=== PATIENT | female | born 1935 | race Caucasian/White ===

== ENCOUNTER 2022-04-03 12:23 | Outpatient (CLI) | payer MEDICARE, SELFPAY ==
--- OUTSIDE RECORDS SUMMARY | 2022-04-03 12:30 | XMS_ITS | Encounter Summary ---
:1935 Author Organization [facility] [place] [address] Care Team Providers Name Role Phone Nereida Barnett MD Primary Care Provider [phone] Reason for Visit Reason Comments Follow-up Encounter Details Date Type Department Care Team Description 02/09/2022 Office Visit Hematology and Matias Salmeron M D [facility] DR HEMATOLOGY/[place] [address] History of ITP; [place] [facility] [place] Norma Salinas, [employer] [facility] DR HEMATOLOGY/[place] [address] Secondary polycythemia [facility] Glenn Gu MD [facility] DR HEMATOLOGY/[place] [address] [place] [address] Social History Tobacco Use Types Packs/Day Years Used Date Never Smoker Smokeless Tobacco: Never Used Alcohol Use Standard Drinks/Week Comments Yes 0 (1 standard drink = 0.6 oz pure alcoho l) occasional Alcohol Habits Answer Date Recorded How often do you have a drink containing alcohol? Not asked How many drinks containing alcohol do you have on a typical Not asked day when you are drinking? How often do you have six or more drinks on one occasion? No t asked Comment: occasional 01/05/2013 Sex Assigned at Date Recorded Female 10/29/2021 2:50 PM EDT documented as of this encounter Last Filed Vital Signs Vital Sign Reading Time Taken Comments Blood Pressure 161/61 02/09/2022 1:20 PM EDT Pulse 65 02/09/2022 1:20 PM EDT Temperature 36.4 ??C (97.5 ??F) 02/09/2022 1:20 PM EDT Respiratory Rate 18 02/09/2022 1:20 PM EDT Oxygen Saturation 98% 02/09/2022 1:20 PM EDT Inhaled Oxygen Concentration - - Weight 82.7 kg (182 lb 5.1 oz) 02/09/2022 1:20 PM EDT Height 146.7 cm (4' 9.76) 02/09/2022 1:20 PM EDT Body Mass Index 38.43 02/09/2022 1:20 PM EDT documented in this encounter Patient Instructions Patient InstructionsGautMatias salazar MD - 02/09/2022 1:15 PM EDT Recent Results (from the past 24 hour(s)) Comprehensive metabolic panel (non-fasting) Result Value Ref Range Glucose Lvl 114 65 - 199 mg/dL BUN 20 (H) 8 - 18 mg/dL Creatinine 1.04 0.70 - 1.20 mg/dL Sodium 140 135 - 145 mmol/L Potassium 3.7 3.5 - 5.0 mmol/L Chloride 103 98 - 107 mmol/L CO2 29 22 - 31 mmol/L Anion Gap 8 5 - 15 mmol/L Calcium 9.8 8.5 - 10.5 mg/dL Total Protein 6.2 6.1 - 8.0 g/dL Albumin 3.8 3.2 - 5.2 g/dL AST 25 0 - 30 unit/L ALT 17 0 - 30 unit/L Alk Phos 88 35 - 105 unit/L Total Bilirubin 1.0 0.2 - 1.3 mg/dL Estimated GFR 53 (L) >=60 mL/min/1.73 m?? Hemogram Result Value Ref Range WBC 9.2 4.0 - 9.5 x10(3)/mcL RBC 5.30 (H) 4.00 - 5.21 x10(6)/mcL Hemoglobin 15.7 (H) 11.7 - 15.5 g/dL Hematocrit 50.1 (H) 35.7 - 45.8 % MCV 94.5 (H) 82.6 - 94.4 fL MCH 29.6 27.1 - 32.0 pg MCHC 31.3 (L) 31.7 - 35.0 g/dL Platelets 135 (L) 145 - 357 x10(3)/mcL RDWSD 44.4 37.0 - 46.0 fL RDWCV 12.7 11.5 - 14.1 % MPV 11.0 7.6 - 12.9 fL nRBC % Auto 0.0 % nRBC Abs Auto 0.000 0.000 - 0.000 x10(3)/mcL Differential, Automated Result Value Ref Range Neutrophils % 72.4 % Neutr Abs (ANC) 6.63 (H) 1.70 - 6.10 x10(3)/mcL Lymphocytes % 17.4 % Lymphocytes Abs 1.6 0.9 - 3.2 x10(3)/mcL Monocytes % 7.9 % Monocyte Abs 0.7 0.3 - 0.9 x10(3)/mcL Eosinophils % 1.5 % Eosinophils Abs 0.1 0.0 - 0.4 x10(3)/mcL Basophils % 0.5 % Basophils Abs 0.0 0.0 - 0.1 x10(3)/mcL Immature Gran % 0.30 % Елена Gran Abs 0.03 0.00 - 0.04 x10(3)/mcL documented in this encounter Progress Notes Matias Salmeron MD - 02/09/2022 1:15 PM EDT Subjective: Patient ID: Barbara Casarez is a 86 y.o. female. Patient Active Problem List Diagnosis Code ??? Breast cancer C50.919 ??? 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 ST elevation (STEMI) myocardial infarction involving left anterior descending coronary artery I21.02 ??? Acute systolic congestive heart failure I50.21 ??? PAF (paroxysmal atrial fibrillation) I48.0 ??? Actinic keratosis L57.0 ??? Acquired complete AV block I44.2 HPI Patient ID: Barbara Casarez is a 84 y.o. female. Problem List: 1. Cancer of the right breast, [id number], stage IA, low grade, ER/WY positive, Her-2/veronica negative. A. Screening mammogram 11/15/12 - left breast negative. Right breast indeterminate with focal assymetry UOQ. 11/28/12 - Additional views of right breast and US -This is a (BIRADS Category 4) SUSPICIOUS Right breast for an 8mm nodular mass in the upper, outer Right breast at 1100, 6cm from the nipple. Targeted ultrasound to the upper, outer quadrant of the Right breast at 1100, 6cm from the nipple demonstrates a 6 x 5 x 6mm irregular, hypoechoic mass. No increased vascularity or shadowing is associated with this mass. No surrounding pseudocapsule is seen. This mass has an indeterminate appearance and biopsy is recommended. The remainder of the Right breast is unremarkable. ?? B. 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 C. Bilateral breast MRI 12/09/12 SUMMARY: RIGHT BREAST LESION 1: KNOWN MALIGNANCY (BIRADS Category 6). Lesion type: Mass. Size: 9 x 4 x 4mm. Location: 1100, 8.1 (4.7)cm from the nipple (radial). Distance from skin: 38mm. Mass margins: Irregular. Mass shape: Lobulated. Enhancement pattern: Homogeneous. Kinetics: Plateau/washout. Recommendation: Definitive surgery. ?? LEFT BREAST LESION 1: SUSPICIOUS (BIRADS Category 4). Lesion type: Mass. Size: 17 x 15 x 16mm. Location: Retroareolar, 0cm from the nipple. Distance from skin: 0mm. Mass margins: Irregular. Mass shape: Lobulated. Enhancement pattern: Heterogeneous. Kinetics: Washout. Recommendation: Diagnostic ultrasound. Comments: 17mm lobulated mass involving and expanding the Left nipple. Recommend follow-up ultrasound for diagnostics. It may or may not be amenable to ultrasound guided biopsy/FNA. ?? D. Staging CXR and LFTs unremarkable ?? E. 01/05/13 - Excision of left breast lesion; Right partial mastectomy and SLN bx. 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 Tumor Size: 7 mm (papilloma size) Resection Margins (RM): Margin Status: Involved(Involved,Uninvolved) Distance, nearest RM(s): At the cauterized yellow RM (A3), adjacent to skin. See Comment Specimen (s): ?? B - Right partial mastectomy C - Right axillary sentinel node Histologic Type: Invasive ductal carcinoma Tumor Grade: Low Zkslsy-Hgwia-Ijxafmgvvn Score: 5 Tubular Differentiation: 2 Mitotic Rate: 1 Nuclear Grade: 2 Tumor Size: 0.7 cm (maximum diameter) In Situ Histologic Type: Not identified (present in the core bx [id number]) Microcalcifications: Not identified Angiolymphatic Invasion: Not identified Perineural invasion: Not identified Nipple involvement: N/A Skin/Skeletal muscle invasion: N/A Other Findings: 1 - Atypical ductal hyperplasia 2 - Atypical lobular hyperplasia 3 - Healing biopsysite Resection Margins (RM): Invasive Ca: Uninvolved(involved/uninvolved) Distance from closest RM(s): < 0.1 cm to nearest yellow inked RM (B2) Axillary lymph nodes: Total no. nodes sampled: 1 No. non-sentinel nodes: 0 No. positive for carcinoma: NA No. sentinel nodes: 1 No. with metastases 0.02 cm or less (isolated tumor cells) 0 No. with metastases >0.02 cm to 0.2 cm (micrometastases) 0 No. with metastases >0.2 cm (macrometastases) 0 Total no. nodes negative for carcinoma: 1 pTNM: pT1b N0 (AJCC, 7th edition, 2010) F. Adjuvant radiation therapy completed 03/31/13. G. 04/07/13 - started femara; completed 5 years in 03/2018 H. Bilateral mammogram 11/02/19 - FINDINGS: There are scattered areas of fibroglandular density. Thereare no suspicious microcalcifications, masses, or areas of distortion. The pattern is stable. Stablebenign-appearing right breast fat necrosis, and stable postsurgical change. Stable benign-appearing right breast intramammary lymph nodes. ?? CONCLUSION: No mammographic evidence of malignancy. ?? RECOMMENDATION: Routine screening. ?? BIRADS CATEGORY 2: Benign findings. ?? 2. ITP. A. Found to have low plts in 09/10 on routine cbc. Plt count 67,000. Evaluation unrevealing and pt felt to have ITP. BM bx not done. B. 11/15/13 - Platelet count 36K Treated with dex, 40 mg per day times 4 days. Platelets increased to 85,000 at one week. C. 05/15/14 - Platelet count 26K Treated with dex, 40 mg per day times 4 days. D. 10/12/14 - Began weekly Rituxan, completed 4 doses on 11/02/14 ?? 3. ASCVD s/p TX with v fib arrest in 04/14 s/p PCI to a mid LAD lesion with placement of a MAYANK Echo 03/2015 - SUMMARY: ?? 1. The left ventricular chamber size is normal. The quantitative left ventricular ejection fraction by biplane Gonzalez's method is 56% with hypokinesis of the apical segments and akinesis of the capwith no evidence of mural thrombus. 2. Right ventricular chamber size, wall thickness, and systolic function are within normal limits. The estimated pulmonary artery systolic pressure is normal at 32 mmHg. 3. The cardiac valves appear structurally and functionally normal. ?? 4. The pericardium appears normal and there is no evidence of a pericardial effusion. ?? 4. Atrial fibrillation 5. HTN 6. S/p left knee arthroscopy 12/10 for partially torn meniscus 7. Dexa scan 03/12 - osteopenia of L-spine and proximal femurs. 04/14 - osteoporosis 04/15 - osteopenia to osteoporosis in L-spine and proximal femurs. 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 [place] to be related to rituxan. Given lack of frequent infections, no intervention recommended. 9. 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 Left hip fracture 07/2016, s/p ORIF after she fell on the stairs 11. S/p JIN/BSO ?? HPI Barbara Casarez is an 86 yo female who is seen in the [facility]. 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 She was treated with Rituxan and has been in the reasonable remission since and hasnot required any further therapy. We did evaluate her recently for elevated hemoglobin. She had a normal erythropoietin level. She wasJA K-2 negative. Also BCR/ABL negative. 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 Since I last saw her she has been okay. She did have another very small breast primary removed and is going to meet with Dr. Feliciano to discuss with her any therapy is needed. She feels pretty well. Energy is okay. She is not very active. She has been having more dyspnea on exertion. She has been referred to pulmonary. We had recommended a CT scan of the chest without contrast to follow-up on a indeterminate pulmonary nodule from 6 months ago. She did not have that scan today. No extremity swelling. Allergies Allergen Reactions ??? Celebrex [Celecoxib] Other (See Comments) Hypotension, tachycardia per patient ??? Norvasc [Amlodipine] Other (See Comments) Causes edema to lower extremities Current Medications ??? Eliquis 5 mg Tablet ??? meTOPROLOL succinate (TOPROL-XL) 50 mg Tablet Sustained Release 24 hr ??? acetaminophen (TYLENOL) 500 mg Tablet ??? lisinopril (PRINIVIL;ZESTRIL) 20 mg Tablet ??? hydroCHLOROthiazide (HYDRODIURIL) 25 mg Tablet ??? atorvastatin (LIPITOR) 80 mg Tablet ??? CALCIUM CARBONATE/VITAMIN D3 (CALCIUM 600 WITH VITAMIN D3 ORAL) ??? multivitamin (THERAGRAN) tablet ??? nitroGLYcerin (NITROSTAT) 0.4 mg Tablet, Sublingual Review of Systems Constitutional: Negative. HENT: Negative. Respiratory: Positive for shortness of breath. Negative for cough. With exertion Cardiovascular: Negative for chest pain and palpitations. Gastrointestinal: Negative for abdominal pain, constipation and diarrhea. Genitourinary: Negative for difficulty urinating and dysuria. Musculoskeletal: Positive for arthralgias. Skin: Negative for rash. Neurological: Negative. Hematological: Negative. Psychiatric/Behavioral: Negative. Objective: Physical Exam Constitutional: Appearance: Normal appearance. She is not ill-appearing. HENT: Mouth/Throat: Mouth: Mucous membranes are moist. Cardiovascular: Rate and Rhythm: Normal rate. Pulmonary: Effort: Pulmonary effort is normal. Skin: Findings: No rash. Neurological: Mental Status: She is alert and oriented to person, place, and time. Psychiatric: Mood and Affect: Mood normal. BP 161/61 (Patient Position: Sitting) Pulse 65 Temp 36.4 ??C (97.5 ??F) (Temporal) Resp 18 Ht 146.7 cm (4' 9.76) Wt 82.7 kg (182 lb 5.1 oz) SpO2 98% BMI 38.43 kg/m?? Recent Results (from the past 72 hour(s)) Comprehensive metabolic panel (non-fasting) Result Value Ref Range Glucose Lvl 114 65 - 199 mg/dL BUN 20 (H) 8 - 18 mg/dL Creatinine 1.04 0.70 - 1.20 mg/dL Sodium 140 135 - 145 mmol/L Potassium 3.7 3.5 - 5.0 mmol/L Chloride 103 98 - 107 mmol/L CO2 29 22 - 31 mmol/L Anion Gap 8 5 - 15 mmol/L Calcium 9.8 8.5 - 10.5 mg/dL Total Protein 6.2 6.1 - 8.0 g/dL Albumin 3.8 3.2 - 5.2 g/dL AST 25 0 - 30 unit/L ALT 17 0 - 30 unit/L Alk Phos 88 35 - 105 unit/L Total Bilirubin 1.0 0.2 - 1.3 mg/dL Estimated GFR 53 (L) >=60 mL/min/1.73 m?? Hemogram Result Value Ref Range WBC 9.2 4.0 - 9.5 x10(3)/mcL RBC 5.30 (H) 4.00 - 5.21 x10(6)/mcL Hemoglobin 15.7 (H) 11.7 - 15.5 g/dL Hematocrit 50.1 (H) 35.7 - 45.8 % MCV 94.5 (H) 82.6 - 94.4 fL MCH 29.6 27.1 - 32.0 pg MCHC 31.3 (L) 31.7 - 35.0 g/dL Platelets 135 (L) 145 - 357 x10(3)/mcL RDWSD 44.4 37.0 - 46.0 fL RDWCV 12.7 11.5 - 14.1 % MPV 11.0 7.6 - 12.9 fL nRBC % Auto 0.0 % nRBC Abs Auto 0.000 0.000 - 0.000 x10(3)/mcL Differential, Automated Result Value Ref Range Neutrophils % 72.4 % Neutr Abs (ANC) 6.63 (H) 1.70 - 6.10 x10(3)/mcL Lymphocytes % 17.4 % Lymphocytes Abs 1.6 0.9 - 3.2 x10(3)/mcL Monocytes % 7.9 % Monocyte Abs 0.7 0.3 - 0.9 x10(3)/mcL Eosinophils % 1.5 % Eosinophils Abs 0.1 0.0 - 0.4 x10(3)/mcL Basophils % 0.5 % Basophils Abs 0.0 0.0 - 0.1 x10(3)/mcL Immature Gran % 0.30 % Елена Gran Abs 0.03 0.00 - 0.04 x10(3)/mcL CT scan, I reviewed the images personally and showed them to the patient. IMPRESSION 1. Stable 10 mm right apical nodule. 2. Stable 6 mm cavitary lesion at the lateral posterior right upper lobe. 3. Attention at follow-up suggested to ensure stability. 4. No new pulmonary nodules or masses. 5. Stable soft tissue and peripherally calcified nodule in the right breast. 6. Cardiomegaly. Moderate to severe [place]roquois coronary artery calcification. ?? Thank you for letting us participate in the care of this patient. If you are a health care provider and have any questions regarding this report, please contact the number below. For patients who have questions please contact the health acute care physician that requested your imaging first. Electronically signed by: Danielle Lamar MD, [facility] ([phone]), at 02/09/2022 2:42 PM Assessment and Plan: Assessment: Barbara Casarez is an 86 yo female diagnosed in 2012 with stage 1A, low grade, ER/WY+, HER-2 veronica negative right breast cancer. 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 We were asked to evaluate her because of an elevated hemoglobin. 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 She will talk with Dr. Ripple about her recent breast cancer diagnosis. I see that the tumor was only 3 mm so she may not need any particularly aggressive therapy. She has some stable pulmonary findings but probably need further follow-up. I will defer that to herprimary care team and her pulmonology team who she is seeing in the near future. In terms of hematologic follow-up I do not think things are active enough for us to follow her givenher many other follow-up appointments. We would be happy to be involved again if there are more concerns. She can return to the hematology clinic on a as needed basis. documented in this encounter Plan of Treatment Upcoming Encounters Date Type Specialty Care Team Description 04/06/2022 Appointment Pulmonology 04/06/2022 Office Visit Pulmonology Matt Watson MD [facility] PULMONARY [place], [place] [address] (Wo rk) documented as of this encounter Visit Diagnoses Diagnosis History of ITP Personal history of diseases of blood an d blood-forming organs Secondary polycythemia Polycythemia, secondary documented in this encounter Care Teams Medical Assistant Supervisor Relationship Specialty Start Date End Date Nereida Barnett MD PCP - General Family Medicine 06/19/[address] [place] [address] documented as of this encounter
--- OUTSIDE RECORDS SUMMARY | 2022-04-03 12:30 | XMS_ITS ---
:1935 Author Organization [facility] Address [address] [place] [address] Care Team Providers Name Role Phone Toño Edouard Unavailable Unavailable PROBLEMS Type Condition ICD9-CM Code EPF87-PL Code Onset Condition SNO MED Code Dates Status Problem Ingrown toenail L60.0 Active 4002 24686 Problem Neuropathy G62.9 Active 727575903 Problem Tinea pedis B35.3 Active 8857786 Problem Paronychia L03.019 Active 73836717 Problem Venous I87.2 Active 72730013 insufficiency ALLERGIES Substance Reaction Event Type Date Status CeleBREX Unknown Drug Allergy Mar, Active Norvasc Unknown Drug Allergy Mar, Active ENCOUNTERS Encounter Location Date Diagnosis [facility], [place] [address] [facility] Mar, Venous insufficiency I87.2 ; [place] [address] Edema R60. 9 ; Onychodystrophy L60.3 ; Neuropat hy G62.9 and Hyperkeratosis L 85.9 [facility] Nov, Venous insufficiency I87.2 ; [place] [address] Edema R60. 9 ; Onychodystrophy L60.3 ; Neuropat hy G62.9 ; Hyperkeratosis L 85.9 and Skin fissure R23.4 [facility] Jul, Venous insufficiency I87.2 ; [place] [address] Edema R60. 9 ; Onychodystrophy L60.3 ; Neuropat hy G62.9 and Hyperkeratosis L 85.9 [facility] [address] [facility], 13 Mar, 2019 Venous insufficiency I87.2 ; [place] [address] Edema R60.9 ; On ychodystrophy L60.3 and Neurop athy G62.9 [facility] Dec, Venous insufficiency I87.2 ; [place] [address] Edema R60. 9 ; Onychodystrophy L60.3 and Neurop athy G62.9 [facility] September, Ingrown toenail L60.0 ; [place] [address] insufficie ncy I87.2 ; Edema R60.9 ; Onychody strophy L60.3 ; Neuropathy G62.9 and Foot pain M79.673 [facility] Jul, Ingrown toenail L60.0 ; [place] [address] insufficie ncy I87.2 ; Edema R60.9 ; Onychody strophy L60.3 ; Neuropathy G62.9 and Foot pain M79.673 [facility] Mar, Ingrown toenail L60.0 ; [place] [address] insufficie ncy I87.2 ; Edema R60.9 ; Onychody strophy L60.3 and Neuropathy G 62.9 [facility] Dec, Ingrown toenail L60.0 ; [place] [address] insufficie ncy I87.2 ; Edema R60.9 ; Onychody strophy L60.3 and Neuropathy G 62.9 [facility] Aug, Ingrown toenail L60.0 ; [place] [address] insufficie ncy I87.2 ; Edema R60.9 ; Onychody strophy L60.3 and Neuropathy G 62.9 [facility] May, Ingrown toenail L60.0 ; [place] [address] insufficie ncy I87.2 and Edema R60.9 [facility], 11 Feb, 2017 Ingrow n toenail L60.0 ; [place] [address] insufficiency I8 7.2 and Edema R60.9 [facility] [address] [facility] SU[address] Nov, Ingrown toenail L60.0 ; [place] [address] insufficie ncy I87.2 and Edema R60.9 [facility] [address] [facility] SU[address] Aug, Ingrown toenail L60.0 ; [place] [address] insufficie ncy I87.2 and Edema R60.9 [facility] [address] [facility], May, [place] [address] [facility] [address] [facility], Feb, [place] [address] [facility] [address] [facility] SU[address] Nov, Ingrown toenail L60.0 [place] [address] [facility] [address] [facility] SU[address] Aug, Ingrown toenail L60.0 [place] [address] [facility] [address] [facility] SU[address] May, Ingrown toenail L60.0 [place] [address] Paronychia L03.019 [facility] [address] [facility] SU[address] Jan, [place] [address] infection 703.0 and Tinea pedis 110.4 [facility] [address] [facility] SU[address] September, [place] [address] infection 703.0 and Tinea pedis 110.4 [facility] [address] [facility] Aug, [place] [address] [facility] [address] [facility], May, [place] [address] infection 703.0 [facility] [address] [facility] SU[address] Jan, [place] [address] infection 703.0 [facility] [address] [facility] Nov, [place] [address] [facility] 8 [facility], Aug, [place] [address] infection 703.0 [facility] [address] [facility], Jul, [place] [address] infection 703.0 [facility] [address] [facility], Jul, [place] [address] infection 703.0 [facility] [address] [facility], Jul, [place] [address] [place] [address] Hyperkeratosis 7 01.1 [facility] [address] [facility], Jul, [place] [address] [place] [address] Hyperkeratosis 7 01.1 UNKNOWN May, [facility] [address] [facility], Feb, [place] [address] [place] [address] Hyperkeratosis 7 01.1 [facility] [address] [facility], Feb, [place] [address] [place] [address] Hyperkeratosis 7 01.1 [facility] [address] [facility], Oct, [place] [address] [place] [address] Hyperkeratosis 7 01.1 IMMUNIZATIONS No Known Immunizations SOCIAL HISTORY Qualifiers Date Never Smoker REASON FOR REFERRAL FUNCTIONAL STATUS PLAN OF CARE VITAL SIGNS Height 58 in 2020-04-16 Height 58 in 2019-12-19 Height 58 in 2019-08-15 Height 58 in 2019-04-12 Height 58 in 2019-01-17 Height 58 in 2018-10-18 Height 58 in 2018-07-19 Height 58 in 2018-04-19 Height 58 in 2018-01-18 Height 58 in 2017-09-14 Height 58 in 2017-06-15 Height 58 in 2017-03-10 Height 58 in 2016-12-15 Height 58 in 2016-09-15 Height 58 in 2016-06-08 Height 58 in 2016-03-09 Height 58 in 2015-12-10 Height 58 in 2015-09-10 Height 58 in 2015-06-11 Height 58 in 2015-02-05 Height 4 ft 10 in in 2014-10-09 Height 4 ft 10 in in 2014-06-05 Height 4 ft 10 in in 2014-02-20 Height N/A in 2013-09-12 Height N/A in 2013-08-28 Height N/A in 2013-07-07 Height N/A in 2012-07-15 Height N/A in 2012-07-01 Height N/A in 2012-03-28 Height N/A in 2012-03-11 Height 4 ft 10 in in 2011-11-04 Weight 180 lbs 2020-04-16 Weight 184 lbs 2019-12-19 Weight 187.0 lbs 2019-08-15 Weight 186 lbs 2019-04-12 Weight 186 lbs 2019-01-17 Weight 185.0 lbs 2018-10-18 Weight 188.0 lbs 2018-07-19 Weight 183.2 lbs 2018-04-19 Weight 187.4 lbs 2018-01-18 Weight 191.6 lbs 2017-09-14 Weight 183 lbs 2017-03-10 Weight 185.2 lbs 2016-12-15 Weight 179.8 lbs 2016-09-15 Weight 184 lbs 2016-06-08 Weight 183.2 lbs 2016-03-09 Weight 183.6 lbs 2015-12-10 Weight 181.1 lbs 2015-09-10 Weight 180.0 lbs 2015-06-11 Weight 192.6 lbs 2015-02-05 Weight 198.3 lbs 2014-10-09 Weight 190.6 lbs 2014-06-05 Weight 190 lbs 2014-02-20 Weight 194.6 lbs 2013-09-12 Weight 195.8 lbs 2013-08-28 Weight 198.6 lbs 2013-07-07 Weight 197.8 lbs 2012-07-15 Weight 190.4 lbs 2012-07-01 Weight 188 lbs 2012-03-28 Weight 188 lbs 2012-03-11 Weight 189.4 lbs 2011-11-04 BMI 37.62 kg/m2 2020-04-16 BMI 38.45 kg/m2 2019-12-19 BMI 39.08 kg/m2 2019-08-15 BMI 38.87 kg/m2 2019-04-12 BMI 38.87 kg/m2 2019-01-17 BMI 38.66 kg/m2 2018-10-18 BMI 39.29 kg/m2 2018-07-19 BMI 38.28 kg/m2 2018-04-19 BMI 39.16 kg/m2 2018-01-18 BMI 40.04 kg/m2 2017-09-14 BMI 38.24 kg/m2 2017-03-10 BMI 38.70 kg/m2 2016-12-15 BMI 37.57 kg/m2 2016-09-15 BMI 38.45 kg/m2 2016-06-08 BMI 38.28 kg/m2 2016-03-09 BMI 38.37 kg/m2 2015-12-10 BMI 37.85 kg/m2 2015-09-10 BMI 37.62 kg/m2 2015-06-11 BMI 40.25 kg/m2 2015-02-05 BMI 41.44 kg/m2 2014-10-09 BMI 39.83 kg/m2 2014-06-05 BMI 39.71 kg/m2 2014-02-20 BMI 40.67 kg/m2 2013-09-12 BMI 40.92 kg/m2 2013-08-28 BMI 41.50 kg/m2 2013-07-07 BMI 41.34 kg/m2 2012-07-15 BMI 39.79 kg/m2 2012-07-01 BMI 39.29 kg/m2 2012-03-28 BMI 39.29 kg/m2 2012-03-11 BMI 39.58 kg/m2 2011-11-04 Temperature 97.2 degrees Fahrenheit 2020-04-16 Temperature 97.6 degrees Fahrenheit 2019-12-19 Temperature 97.0 degrees Fahrenheit 2019-08-15 Temperature 97.3 degrees Fahrenheit 2019-04-12 Temperature 97.6 degrees Fahrenheit 2019-01-17 Temperature 96.7 degrees Fahrenheit 2018-10-18 Temperature 98.3 degrees Fahrenheit 2018-07-19 Temperature 97.9 degrees Fahrenheit 2018-04-19 Temperature 97.7 degrees Fahrenheit 2018-01-18 Temperature 98.2 degrees Fahrenheit 2017-09-14 Temperature 98 degrees Fahrenheit 2017-06-15 Temperature 98.7 degrees Fahrenheit 2017-03-10 Temperature 99.7 degrees Fahrenheit 2016-12-15 Temperature 98.2 degrees Fahrenheit 2016-09-15 Temperature 97.8 degrees Fahrenheit 2016-06-08 Temperature 97.8 degrees Fahrenheit 2016-03-09 Temperature 99.0 degrees Fahrenheit 2015-12-10 Temperature 99 degrees Fahrenheit 2015-09-10 Temperature 99.2 degrees Fahrenheit 2015-06-11 Temperature 97.5 degrees Fahrenheit 2015-02-05 Temperature 97.7 degrees Fahrenheit 2014-10-09 Temperature 98 degrees Fahrenheit 2014-06-05 Temperature 97.8 degrees Fahrenheit 2014-02-20 Temperature 96.8 degrees Fahrenheit 2013-09-12 Temperature 98.9 degrees Fahrenheit 2013-08-28 Temperature 97.7 degrees Fahrenheit 2013-07-07 Temperature TYMPANIC:96.6 degrees Fahrenheit 2012-07 Temperature TYMPANIC:97.4 degrees Fahrenheit 2012-07 Temperature TYMPANIC:97.4 degrees Fahrenheit 2012-02 Temperature TYMPANIC:97.4 degrees Fahrenheit 2012-02 Temperature TYMPANIC:96.9 degrees Fahrenheit 2011-10 Heart Rate 83 /min 2020-04-16 Heart Rate 78 /min 2019-12-19 Heart Rate 77 /min 2019-08-15 Heart Rate 67 /min 2019-04-12 Heart Rate 84 /min 2019-01-17 Heart Rate 81 /min 2018-10-18 Heart Rate 83 /min 2018-07-19 Heart Rate 82 /min 2018-04-19 Heart Rate 83 /min 2018-01-18 Heart Rate 74 /min 2017-09-14 Heart Rate 82 /min 2017-06-15 Heart Rate 81 /min 2017-03-10 Heart Rate 90 /min 2016-12-15 Heart Rate 84 /min 2016-09-15 Heart Rate 81 /min 2016-06-08 Heart Rate 79 /min 2016-03-09 Heart Rate 63 /min 2015-12-10 Heart Rate 70 /min 2015-09-10 Heart Rate 72 /min 2015-06-11 Heart Rate 70 /min 2015-02-05 Heart Rate 74 /min 2014-10-09 Heart Rate 64 /min 2014-06-05 Heart Rate 58 /min 2014-02-20 Heart Rate 44 /min 2013-09-12 Heart Rate 60 /min 2013-08-28 Heart Rate 78 /min 2013-07-07 Heart Rate 64 /min 2012-07-15 Heart Rate 78 /min 2012-07-01 Heart Rate 56 /min 2012-03-28 Heart Rate 52 /min 2012-03-11 Heart Rate 63 /min 2011-11-04 Respiratory Rate 18 /min 2020-04-16 Respiratory Rate 18 /min 2019-12-19 Respiratory Rate 18 /min 2019-08-15 Respiratory Rate 18 /min 2019-04-12 Respiratory Rate 18 /min 2019-01-17 Respiratory Rate 18 /min 2018-10-18 Respiratory Rate 18 /min 2018-07-19 Respiratory Rate 18 /min 2018-04-19 Respiratory Rate 18 /min 2018-01-18 Respiratory Rate 18 /min 2017-09-14 Respiratory Rate 16 /min 2017-06-15 Respiratory Rate 18 /min 2017-03-10 Respiratory Rate 18 /min 2016-12-15 Respiratory Rate 18 /min 2016-09-15 Respiratory Rate 16 /min 2016-06-08 Respiratory Rate 18 /min 2016-03-09 Respiratory Rate 15 /min 2015-12-10 Respiratory Rate 16 /min 2015-09-10 Respiratory Rate 18 /min 2015-06-11 Respiratory Rate 18 /min 2014-10-09 Respiratory Rate 18 /min 2014-06-05 Respiratory Rate 18 /min 2014-02-20 Respiratory Rate 20 /min 2013-09-12 Respiratory Rate 18 /min 2013-08-28 Respiratory Rate 18 /min 2013-07-07 Respiratory Rate 18 /min 2012-07-15 Respiratory Rate 18 /min 2012-07-01 Respiratory Rate 18 /min 2012-03-28 Respiratory Rate 18 /min 2012-03-11 Respiratory Rate 18 /min 2011-11-04 Oximetry 95 % 2020-04-16 Oximetry 96 % 2019-12-19 Oximetry 96 % 2019-08-15 Oximetry 97 % 2019-04-12 Oximetry 92 % 2019-01-17 Oximetry 95 % 2018-10-18 Oximetry 92 % 2018-07-19 Oximetry 94 % 2018-04-19 Oximetry 95 % 2018-01-18 Oximetry 96 % 2017-09-14 Oximetry 98 % 2017-06-15 Oximetry 99 % 2017-03-10 Oximetry 95 % 2016-12-15 Oximetry 98 % 2016-09-15 Oximetry 95 % 2016-06-08 Oximetry 92 % 2016-03-09 Oximetry 94 % 2015-12-10 Oximetry 96 % 2015-09-10 Oximetry 95 % 2015-06-11 Oximetry 94 % 2015-02-05 Oximetry 95 % 2014-10-09 Oximetry 97 % 2014-06-05 Oximetry 95 % 2014-02-20 Oximetry 97 % 2013-09-12 Oximetry 98 % 2013-08-28 Oximetry 96 % 2013-07-07 Oximetry 94 % 2012-07-15 Oximetry 98 % 2012-07-01 Oximetry 95 % 2012-03-28 Oximetry 96 % 2012-03-11 Oximetry 93 % 2011-11-04 Blood pressure systolic 153 mm Hg 2020-04-16 Blood pressure diastolic 90 mm Hg 2020-04-16 MEDICATIONS Medication Instructions Dosage Frequency Start End Duration Statu s Date Date Metoprolol orally once 1 tab(s) 24h Active Succinate ER 50 daily mg Aspirin 325 mg orally once a 1 tab(s) 24h Ac tive day Atorvastatin orally once a 1 tab(s) Acti ve Calcium 80 mg day (at bedtime) MULTIVITAMIN orally once a 1 tab(s) 24h Acti ve Multiple day Vitamins Letrozole 2.5 mg orally once a 1 tab(s) 24h Not-Takin day g Lisinopril 20 mg orally twice a 1 tab(s) 12h Active day -OTC, HERBALS Active Varies PROCEDURES Procedure Date Ordered Result Body Site COBAN TAPE (87073) August 28, 2013 COBAN TAPE (87504) Mar 11, 2012 REMOVAL INGROWN TOENAIL October 09, 2014 COBAN TAPE (92686) Jul 01, 2012 [facility] (83429) Mar 11, 2012 CONFORM,2in sterile,(27498) Mar 11, 2012 REMOVAL INGROWN TOENAIL Apr 19, 2018 CONFORM,2in sterile,(25002) Jul 01, 2012 CONFORM,2in sterile,(29781) August 28, 2013 REMOVAL INGROWN TOENAIL Jun 05, 2014 CONFORM,2in sterile,(46442) Mar 28, 2012 REMOVAL INGROWN TOENAIL November 04, 2011 REMOVE NAIL PLATE, ADD-ON Jun 15, 2017 REMOVAL INGROWN TOENAIL December 15, 2016 REMOVAL OF NAIL BED Jul 01, 2012 REMOVAL INGROWN TOENAIL September 10, 2015 REMOVAL INGROWN TOENAIL Feb 20, 2014 CONFORM,2in sterile,(40187) Jul 15, 2012 REMOVAL OF NAIL BED August 28, 2013 REMOVAL INGROWN TOENAIL December 10, 2015 REMOVAL INGROWN TOENAIL October 18, 2018 REMOVAL INGROWN TOENAIL Mar 09, 2016 REMOVAL INGROWN TOENAIL September 15, 2016 REMOVAL INGROWN TOENAIL Jul 07, 2013 CONFORM,2in sterile,(48317) September 12, 2013 REMOVAL INGROWN TOENAIL Jun 08, 2016 REMOVAL OF NAIL BED Mar 11, 2012 [facility] (24683) Jul 01, 2012 REMOVAL INGROWN TOENAIL Jun 15, 2017 REMOVAL INGROWN TOENAIL August 28, 2013 REMOVAL INGROWN TOENAIL Jun 11, 2015 COBAN TAPE (37093) Mar 09, 2016 REMOVAL INGROWN TOENAIL Jan 18, 2018 [facility] (46875) August 28, 2013 REMOVAL INGROWN TOENAIL Mar 10, 2017 DEBRIDE NAIL, 6 OR MORE Jul 19, 2018 [facility] (47967) Mar 11, 2012 RESULTS No Results REASON FOR VISIT Foot care, referral done, Foot care, referral done, pt canc 04/16, Foot care, referral done, Foot care, referral done, pt r/s 04/15, pt states that she is here for nail and callus care today , pt states that she does use tubigrip at times and that the swelling is about the same has it has been , pt states that she has no concerns today, 4 month f/u, referral done, Last seen by on 08/15/19 for foot and nail care -[facility] , patient has history of callus on her heels -[facility] , pt states that she is here for nail care today , 4 month f/u, referral done, pt states that she is here for foot and nail care today , pt states that she has some callus on her heels that she would like taken care of , 3 month f/u, referral done, last seen by on 01/17/19 for Edema and nailcare-KG, tubigrip size E, pt states that her legs are about the same, and that thay are not bothering her. , pt states that she wears the tubigrip sometimes , pt states that she needs nail care today, 3 month f/u, referral done, last seen by for ingrown left medial hallux nail border, Remove offending ingrown corner. No anesthesia necessary due to pt. tolerance, Encouraged periodic foot and leg elevation, use bilateral tubigrip fromankle to knee, pt had no complaints today, but is looking forward to having her nails trimmed, 3 month follow up, referral done, Last seen by on 07/19/18 for ingrown toenails, pt states she is for nailcare and she is questioning both great toes possible ingrowth?-KG, 3 month follow up , 3 month follow up , Nailcare, 4 month f/u , last seen 09/14/2017 [facility]- Foot care, 3 month follow up , Pt is here today for Footcare, Pt states her feet feel strange from her ankles down, Pt states she does not usuallywear the Tubigrip, 3 month f/u , pt states she is here for foot care, 3 mo f/u , Pt is here today for Footcare, 3 mo f/u , pt is here for a foot eval today, 3 month f/u , pt is here for a foot evaluation today, 3 mos f/u , Pt is here for nail care- pt states no other concerns., Pt states that her ingrown nails have resolved themselves., Medications reviewed w/pt,med. list is correct- SM, P + A Left Great Toe, Referral Done, Pt states Left great toe nail is better now, but right 2nd toe is now painful., 3 mos f/u nailcare, Referral Done, Pt is here for routine footcare., Medications reviewed w/pt,med. list is correct -[facility], nailcare, Referral Done., pt has no concerns today, nailcare, Referral Done,Pt states her left hallux is digging in again. JL, nailcare, Referral Done, Pt has no other concerns. JV, nailcare 3-4 mo f/u, Referral Done, pt has no concerns today, 3-4 mo f/u, Referral Done--patient r/s 10/10, r/s 09/[address] edouard, 4 MONTH F/U, Referral Done, pt states that her toenails feel good and she has no concerns today, ingrown toenail, pt thinks that both great toenails are ingrown, cancellation list, 2 week follow up, 2 wk follow up, Patient states toes are doing fine. No new problems or concerns this visit , Meds reviewed by pt,new meds: lisinopril 40 mg once a day, HCTZ 25 mgonce a day, aspirin 81 mg once a day - DG, check big toes, Meds reviewed by pt,new meds: Lisinopril 40mg qd, HCTZ 25mg qd, Femar 2.5mg qd--KW, Meds reviewed by pt,no longer taking: Losartan--KW, Footcare, pt states that she has a few problematic toenails that are curving, Meds reviewed by pt,no longertaking: Losartan--KW, Meds reviewed by pt,new meds: Lisinopril 40mg once daily, HCTZ 25mg once daily, Femara 2.5mg once daily, Apsirin 81mg qd--KW, nailcare, 2 week f/u, Patient states no problems or concerns with the toe. Seems to be healing fine - DG, Meds reviewed by pt,no longer taking: losartan, Meds reviewed by pt,new meds: lisinopril 20 mg once a day, Ingrown toenail, Ingrown toenail, Meds reviewed by pt,no longer taking: losartan, Meds reviewed by pt,new meds:lisinopril 20mg qd-tp, Ingrown toe nail right toe, 2 week f/u, Medications reviewed w/pt,med. list is correct, ingrown toenail on left toe, bilat ingrown great toenails, ? nailcare, Medications reviewed w/pt,med. list is correct (ALEXANDRU),ingrown toenails, Medications reviewed w/pt,med. list is correct - [facility] Insurance Providers [facility] Member Patient Patient Patient Patient Patient Subscriber Subscriber Subscriber Group Insurance Plan Plan Plan Plan ID Relationship Address Phone Name Date of ID Name Date of No Type Insurance Insurance Insurance Coverage to Subscriber Address Phone Name Dates SELF PAY [address] SELF PAY self [place]AUGHN [id number] [facility] [id number] INSURANCE S-[employer] [phone] S-[employer] self [place] [id number] [facility] [id number] [facility] [id number] MEDICARE [address] MEDICARE self [place] [id number] [facility] [id number] SELF [address] SELF PAY self [place] [id number] [facility] [id number] INS
--- OUTSIDE RECORDS SUMMARY | 2022-04-03 12:30 | XMS_ITS | Encounter Summary ---
:1935 Author Organization [facility] Address [address] [place] [address] Care Team Providers Name Role Phone Unavailable Primary Care Provider Unavailable Encounter Details Date Type Department Care Team Description 07/24/2005 Results Only [facility] - Shane Perez MD Maple conversion [address] [place] [address] [place] [address] [phone] Social History Tobacco Use Types Packs/Day Years Used Date Never Assessed Sex Assigned at Date Recorded Not on file documented as of this encounter Plan of Treatment Not on filedocumented as of this encounter Procedures Procedure Name Priority Date/Time Associated Diagnosis Comme nts CYTOPATHOLOGY Routine 07/24/2005 0:00 EST Results for this procedure are i n the results section . documented in this encounter Results CYTOPATHOLOGY (07/24/2005 0:00 EST) Pathology Report: CYTOPATHOLOGY REPORT [facility] Reports generated via electronic interface contain viktor ginal data; however they are lacking the format of the original re port. Caution should be taken when reading/interpreting unfo rmatted reports. Name: ? DEVAUGHN GURROLA ? Accession #: ? [id number] : ? 1935 (Age: 69) ??F ?Collect Date: ? 07/02 Location: ? [facility] ? Receive Date: ? 07/28/2005 Provider: ?CLINTON PEREZ MD Copy to: ? Specimen/Source: ? ThinPrep Pap Test, Vagina/Cervix/Endocervix, processed on [employer] ThinPrep Imaging System, with manual evaluati on Last Menstrual Period: ? Previous Gynecologic Pathology: ? Yes: Previous atypical, 11/18/00 ASCUS, favor reactive cellular changes Treatment History: ? JIN/BSO: hyperplasia with atypia ? SPECIMEN ADEQUACY ? Satisfactory for Evaluation - assessment of transformation zone component not appl icable ( e.g. atrophy, vaginal sample, hysterectomy) GENERAL CATEGORIZATION ? Negative for Intraepithelial Lesion or Malignan cy ? Document reviewed and electronically signed by: ? WILLIE Guevara(ASCP) ? Report Date: ??07/31/2005 12:28 End of Report Specimen Performing Organization Address City/State/ZIP Code Phon e Number [facility] [address] [place] [address] SERVICES [facility] [address] [place] [address] documented in this encounter Visit Diagnoses Not on filedocumented in this encounter
--- OUTSIDE RECORDS SUMMARY | 2022-04-03 12:30 | XMS_ITS | Continuity of Care Document ---
:1935 Author Organization [facility] e Address [address] [place] [address] Care Team Providers Name Role Phone Nereida Barnett MD Primary Care Physician Encounter [facility]TT[facility]_AL FIN NBR [id number] Date(s): 04/01/22 - 04/01/[address] [id number] Discharge Disposition: Home or Self Care Attending Physician: NIHARIKA GRAY Admitting Physician: NIHARIKA GRAY Referring Physician: NIHARIKA GRAY Assessment and Plan Future Appointments Immunizations Given and Recorded Vaccine Date Status Refusal Reason SARS-CoV-2 [id number] bivalent booster1 03/19/22 Given 1Early/Late Reason: Early/Late Reason: Back-charting an earlier dose Results Laboratory List Name Date CBC w/ Diff 04/01/22 Comprehensive Metabolic Panel 04/01/22 Automated Diff 04/01/22 Most recent to oldest [Reference Range]: 1 WBC [4.8-10.8 K/mcL] 10.1 K/mcL (04/01/22 10:49 AM) RBC [4.20-6.10 Million/mcL] 5.90 Million/mcL (04/01/22 10:49 AM) Neutro Auto [42.2-75.2 %] 72.4 % (04/01/22 10:49 AM) Lymph Auto [20.5-51.1 %] 19.3 % *LOW* (04/01/22 10:49 AM) [place] Auto [1.7-9.3 %] 6.9 % (04/01/22 10:49 AM) Basophil Auto [0.0-0.2 %] 0.4 % *HI* (04/01/22 10:49 AM) BUN [8-26 mg/dL] 16 mg/dL (04/01/22 10:49 AM) Glucose Level [74-106 mg/dL] 132 mg/dL *HI* (04/01/22 10:49 AM) Potassium Level [3.5-5.1 mmol/L] 2.8 mmol/L *LOW* (04/01/22 10:49 AM) Baso Absolute [0.0-0.2 K/mcL] 0.0 K/mcL (04/01/22 10:49 AM) MCV [80.0-99.0 fL] 91.2 fL (04/01/22 10:49 AM) AST [15-41 IntlUnit/L] 36 IntlUnit/L (04/01/22 10:49 AM) ALT [14-54 IntlUnit/L] 24 IntlUnit/L (04/01/22 10:49 AM) MCHC [32.0-36.0 g/dL] 31.4 g/dL *LOW* (04/01/22 10:49 AM) Osmolality [275-295 mOsm/kg] 282 mOsm/kg (04/01/22 10:49 AM) Sodium Level [134-143 mmol/L] 140 mmol/L (04/01/22 10:49 AM) Lymph Absolute [1.2-3.4 K/mcL] 2.0 K/mcL (04/01/22 10:49 AM) Hct [37.0-52.0 %] 53.8 % *HI* (04/01/22 10:49 AM) Calcium Level [8.9-10.3 mg/dL] 9.7 mg/dL (04/01/22 10:49 AM) [place] Absolute [0.1-0.6 K/mcL] 0.7 K/mcL *HI* (04/01/22 10:49 AM) Albumin Level [3.5-5.0 g/dL] 3.9 g/dL (04/01/22 10:49 AM) Protein Total [6.5-8.1 g/dL] 6.7 g/dL (04/01/22 10:49 AM) MCH [27.0-31.0 pg] 28.6 pg (04/01/22 10:49 AM) Neutro Absolute [1.4-6.5 K/mcL] 7.3 K/mcL *HI* (04/01/22 10:49 AM) Bilirubin Total [0.2-1.2 mg/dL] 1.9 mg/dL *HI* (04/01/22 10:49 AM) Hgb [12.0-18.0 g/dL] 16.9 g/dL (04/01/22 10:49 AM) Alk Phos [38-130 IntlUnit/L] 85 IntlUnit/L (04/01/22 10:49 AM) MPV [7.4-10.4 fL] 10.6 fL *HI* (04/01/22 10:49 AM) Platelets [130-400 K/mcL] 165 K/mcL (04/01/22 10:49 AM) CO2 [22-32 mmol/L] 30 mmol/L (04/01/22 10:49 AM) Eos Absolute [0.0-0.2 K/mcL] 0.1 K/mcL (04/01/22 10:49 AM) eGFR Non-AA 55 *NA* (04/01/22 10:49 AM) eGFR AA 55 *NA* (04/01/22 10:49 AM) Chloride Level [98-111 mmol/L] 98 mmol/L (04/01/22 10:49 AM) RDW-CV [11.5-14.5 %] 12.6 % (04/01/22 10:49 AM) A/G Ratio 1.4 *NA* (04/01/22 10:49 AM) BUN/Creat Ratio [8.0-20.0] 15.8 (04/01/22 10:49 AM) Globulin 2.8 *NA* (04/01/22 10:49 AM) Imm Gran Absolute 0.03 *NA* (04/01/22 10:49 AM) Imm Gran Auto [0.0-0.5 %] 0.3 % (04/01/22 10:49 AM) Creatinine Level [0.44-1.00 mg/dL] 1.01 mg/dL *HI* (04/01/22 10:49 AM) Anion Gap [3.0-12.0] 12.0 (04/01/22 10:49 AM) Eos, Auto [0.00-3.00 %] 0.70 % (04/01/22 10:49 AM) Patient Care team information PersonnelName: Nereida Barnett MD Address: Address: [address] [place] [address]
--- OUTSIDE RECORDS SUMMARY | 2022-04-03 12:30 | XMS_ITS ---
:1935 Author Organization [facility] Address [address], [place] [id number] Care Team Providers Name Role Phone Yuri Alcala Unavailable Unavailable PROBLEMS Type Condition ICD9-CM [id number] Onset Condition SNOMED Cod e Code Code Dates Status Problem Carpal tunnel G56.02 Active 656592 09 syndrome, left upper limb Problem Primary M17.0 Active 653079517 osteoarthritis of both knees Problem Morbid obesity, E66.01 Active 2381 96268 unspecified obesity type Problem Carpal tunnel G56.01 Active 626369 09 syndrome, right upper limb Problem High cholesterol E78.0 Active 136 66161 Problem Coronary artery I25.10 Active 4510 [id number] disease involving pechanga coronary artery of pechanga heart without angina pectoris Problem CAD (coronary artery I25.10 Active disease) Problem Essential I10 Active 06216022 hypertension Problem Paresthesia R20.2 Active 52206336 Problem Peripheral G62.9 Active 049643658 neuropathy Problem Carpal tunnel G56.00 Active 431550 09 syndrome Problem History of cardiac Z95.0 Active 4 71586112 pacemaker Problem 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 Problem History of uterine Z85.42 Active 4 37081102 cancer Problem Nipple discharge N64.52 Active 543 08179 Problem Cancer of breast C50.919 Active 372 686877 Problem Cystocele, midline N81.11 Active 4 13684950 Problem 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 669678265 thrombocytopenic purpura Problem Vaginal enterocele N81.5 Active 3 46533731 Problem History of breast Z85.3 Active 41 3854248 cancer Problem Umbilical hernia K42.9 Active 396 692742 without obstruction and without gangrene Problem Paroxysmal atrial I48.0 Active 28 6111449 fibrillation ALLERGIES Substance Reaction Event Type Date Status Norvasc legs swelling Non Drug Allergy Oct, Active celebrex hypotensive Drug Allergy Oct, Active ENCOUNTERS Encounter Location Date Diagnosis [address] Oct, History o f uterine cancer [address] Z85.42 ; Nipple discharge [place] N64.52 ; History of breast 618895448 cancer Z85.3 and Cystocele, midline N81.[address] Apr, Intertrig inous candidiasis [facility] [address] B37.2 [place], [place] [id number] [address] Jan, Intertrig o L30.[address] [place], [place] [id number] [address] Nov, [address] [place] [id number] [address] Oct, History o f uterine cancer [facility] [address] Z85.42 ; Umbilic al hernia [place] without obstruct ion and [id number] without gangrene K42.9 and History of breas t cancer Z85.[address] 14 Feb, 2019 Paroxysm al atrial [place], [place] fibrillation I48.0 ; [id number] History of cardi ac pacemaker Z95.0 ; Coronary artery disease i nvolving pechanga coronary artery of pechanga heart wit hout angina pectoris I25.10 ; Essential hypertension I10 ; High cholesterol E78. 0 ; Primary osteoarthritis o f both knees M17.0 ; Id iopathic thrombocytopenic purpura D69.3 ; Cancer o f breast C50.919 ; Umbili jose hernia without obstruct ion and without gangrene K42.9 and History of sudde n cardiac successful ly resuscitated Z86 .[address] Nov, Closed f racture of distal [place] end of left u interpreter for the deaf, [id number] unspecified frac ture morphology, sequ david S52.602S [address] Nov, Left wri st pain M25.532 [place], [place] [id number] [address] Oct, History o f uterine cancer [place] [address] Z85.42 ; History of breast [place] cancer Z85.3 and Umbilical [id number] hernia without o bstruction and without gang tabatha K42.[address] Mar, [place], [place] [id number] [address] Feb, Coronary artery disease [place], [place] involving gerri ariane coronary [id number] artery of pechanga heart without angina p ectoris I25.10 ; Essenti al hypertension I10 ; High cholesterol E78. 0 ; Paroxysmal atria l fibrillation I48 .0 ; Morbid obesity, unspeci fied obesity type E66 .01 ; History of breas t cancer Z85.3 ; Idiopath ic thrombocytopenic purpura D69.3 and Periph eral neuropathy G62.[address] Oct, Encounter for gynecological [place] [address] examination with abnormal [place] finding Z01.411 ; [id number] Cystocele, midli ne N81.11 ; History of uteri ne cancer Z85.42 ; History of breast cancer Z85.3 ; U mbilical hernia without o bstruction and without gang tabatha K42.9 and Vaginal ente rocele N81.[address] Feb, Coronary artery disease [place] involving gerri ariane coronary [id number] artery of pechanga heart without angina p ectoris I25.10 ; High ch olesterol E78.0 ; Essentia l hypertension I10 ; History of breast cancer Z85.3 and Primary osteoart hritis of both knees M17.[address] September, History o f uterine cancer [place] [address] Z85.42 ; Persona l history [place] of malignant ever plasm of [id number] breast Z85.3 ; C ystocele, midline N81.11 a nd Vaginal enterocele N81.[address] Jul, Fracture of left hip [place], [place] requiring ope rative repair, [id number] closed, with rou mariza healing, subsequ ent encounter S72.00 2D and Idiopathic throm bocytopenic purpura D69.[address] Jan, Coronary artery disease [place] involving gerri ariane coronary [id number] artery of pechanga heart without angina p ectoris I25.10 ; Essenti al hypertension I10 ; High cholesterol E78. 0 ; Morbid obesity, unspeci fied obesity type E66 .01 ; Carpal tunnel sy ndrome, left upper limb G56.02 ; Carpal tunnel sy ndrome, right upper limb G56.01 ; Primary osteoart hritis of both knees M17.0 ; Idiopathic throm bocytopenic purpura D69.3 ; Encounter for screening ma mmogram for malignant neopla sm of breast Z12.31 an d Encounter for screening fo r malignant neoplasm of colo n Z12.11 [facility] [address] [place] [address] Nov, [facility] Suite [place], [place] [id number] [facility] [address] [place] [address] Oct, [facility] Suite [place], [place] [id number] [facility] [address] [place] [address] Oct, Carpal tunnel syndrome [facility] Suite G56.00 ; [place] neuropathy G62.9 ; [id number] Paresthesia R20. 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 ; Canc er of breast C50.919 ; CAD (coronary artery disease) I25.10 and Myalg ia M79.1 Yuri Alcala MD [address] [place] [address] Oct, Encounter fo r screening [place], [place] mammogram for malignant [id number] neoplasm of [address] st Z12.31 and History of b reast cancer Z85.3 Yuri Alcala MD [address] [place] [address] September, History of u terine cancer [place] Z85.42 ; Pers onal history [id number] of malignant ever plasm of breast Z85.3 ; B chet mass index (BMI) 39.0 -39.9, adult Z68.39 ; C ystocele, midline N81.11 a nd Disorder of the skin and subcutaneous tis charlie, unspecified L98. 9 [facility] Primary [address] [place] [address] Apr, Coronary artery disease [place] involving gerri ariane coronary [id number] artery of pechanga heart without angina p ectoris I25.10 ; Essenti al hypertension I10 ; Adverse reaction to GENE inhibitor drug, subsequent encounter T46.4X5D ; High cholesterol E78.0 ; Morbid o besity, unspecified obes ity type E66.01 ; Carpal tunnel syndrome, right upper limb G56.01 ; Carpal tunnel syndrome, left u pper limb G56.02 ; Primary osteoarthritis o f both knees M17.0 and Idiopathic thrombocytopenic purpura D69.[address] Apr, [place] [id number] [address] Feb, [place] [id number] [address] Jan, Epistaxis [address]84.[address] vestibulitis 478 .19 [place], [place] [id number] [address] Dec, Epistaxis 784.[address] vestibulitis 478 .19 [place], [place] [id number] [address] Nov, [place] [id number] [address] Nov, Epistaxis 784.[address] vestibulitis 478 .19 [place] [id number] [address] Oct, Idiopath ic thrombocytopenic [place] purpura (ITP) 287.31 ; High 678119570 blood pressure 4 01.9 ; Restrictive lung disease 518.89 ; Breast cancer 174.9 ; SCREEN M AMMOGRAM NEC V76.12 ; SCR EEN MALIG NEOP-COLON V76.5 1 ; Loss of height 781.91 ; Osteoarthritis o f knees, bilateral 715.96 ; Osteoarthritis o f shoulders, 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 [address] Oct, Epistaxis 784.[address] vestibulitis 478 .19 [place], [place] [id number] Yuri Alcala MD [address] [place] [address] September, Encounter fo r gynecological [place], [place] examination V 72.31 ; [id number] Umbilical hernia 553.1 ; Cystocele 618.01 ; History of breast cancer V10.3 and Thrombocytopenia 287.5 Yuri Alcala MD [address] [place] [address] Jul, [place] [id number] [address] May, Sinusiti s 473.9 and Chronic Care [place] ITP (idiopath ic 564000124 thrombocytopenia ) 287.[address] 14 Mar, 2014 High blo od pressure 401.9 ; [place] Breast cancer 174.9 ; ITP [id number] (idiopathic thrombocytopenic purpura) 287.31 ; Obesity 278.00 and Radiation pneumo nitis 508.0 [facility] Pulmonology [address] [place] [address] Feb, Shor tness of breath [address] [place] [id number] [address] Jan, [place] [id number] [address] Dec, [place] [id number] [address] Dec, Restrict ariane lung disease [place], [place] 518.89 ; Dysp sydney 786.09 ; [id number] HTN [Hypertensio n] 401.9 ; Leg edema 782.3 ; Thrombocytopenia 287.5 ; Breast cancer 17 4.9 ; Obesity 278.00 a nd Primary localized osteoa rthrosis of lower leg 715.[address] Dec, [place], [place] [id number] [facility] [address] [place] [address] Nov, [place], [place] [id number] [facility] [address] [place] [address] Nov, Breast ca ncer 174.9 ; [place] Thrombocytope sima 287.5 ; [id number] Shortness of ben ath 786.05 ; HTN [Hypertens ion] 401.9 ; Obesity 278.00 ; Primary localized osteoa rthrosis of lower leg 715.16 ; SCREEN MAMMOGRAM NEC V7 6.12 ; SCREEN MALIG EVER P-COLON V76.51 and Left knee pain 719.46 Yuri Alcala MD [address] [place] [address] September, History of b reast cancer [place] V10.3 ; Throm bocytopenia [id number] 287.5 ; BMI 39.0 -39.9,ADULT V85.39 ; SCREEN MAL NEOP-RECTUM V76. 41 and Benign hypertens ion 401.[address] Jul, HTN (hype rtension) 401.9 ; [place] Rash 782.1 ; Xerosis of 920196325 skin 706.8 ; Alc ohol intolerance 579. 8 ; Hand tingling 782.0 a nd Obesity 278.[address] May, [place] [id number] [address] Apr, HTN (hype rtension) 401.9 ; [place] Obesity 278.0 0 and Lower [id number] extremity edema 782.3 UNKNOWN Mar, UNKNOWN Mar, [address] Mar, HTN (hype rtension) 401.9 ; [place] Obesity 278.0 0 ; Breast 659208341 cancer 174.9 ; Thrombocytopenia 287.5 ; Tear of meniscus of left knee 836.2 and V iral URI with cough 465.[address] Nov, [place] [id number] [address] Oct, [place], [place] [id number] [address] Oct, [place], [place] [id number] [address] September, [place] [id number] [address] September, [place] [id number] [address] September, Upper r espiratory infection [place], [place] 465.9 and Cou gh 786.[id number] September, Upper r espiratory infection [place], [place] [id number] September, Thrombo cytopenia NOS 287.8 [place] [id number] [address] Aug, Thrombo cytopenia NOS 287.8 [place] [id number] [address] Aug, HTN [Hy pertension] 401.9 ; [place] Obesity 278.0 0 ; [id number] Subacromial burs itis 726.19 and Thrombocytop enia NOS 287.[address] Mar, [place] [id number] [address] Mar, [place], [place] [id number] [address] Feb, [place] [id number] [address] Dec, HTN [Hy pertension] 401.9 [place], [place] [id number] [address] Oct, [place], [place] [id number] [address] Oct, [place] [id number] [address] Aug, [place], [place] [id number] [address] Mar, [place], [place] [id number] [address] Mar, Hyperte nsion 401.9 [place], [place] [id number] [address] Jan, [place], [place] [id number] [facility] [address] [place] [address] Nov, Sebaceo us cyst 706.[address] [facility] [address] [place] [id number] September, [place], [place] [id number] [facility] [address] [place] [address] September, Pigment ed nevus of skin of [facility] [address] eyebrow 216.3 an d Sebaceous [place] cyst 706.2 [id number] [facility] [address] [place] [address] September, Pigment ed nevus of skin of [facility] [address] rastafarian 216.3 and Sebaceous [place] cyst 706.[id number] September, Hyperte nsion 401.9 and Soft [place] tissue disord ers, other [id number] 729.99 [facility] Internal [address] [facility] May, [place], [place] [id number] [facility] Internal [address] [facility] Apr, [place], [place] [id number] [facility] Internal [address] [facility] Apr, [place], [place] [id number] [facility] Internal [address] [facility] Mar, Hyperte nsion 401.9 and [place] Hyperglycemia 790.6 [id number] [facility] Internal [address] [facility] Jan, [place], [place] [id number] [facility] Internal [address] [facility] Dec, [place], [place] [id number] [facility] Internal [address] [facility] Dec, Hyperte nsion 401.9 [place], [place] [id number] [facility] Internal [address] [facility] Dec, [place], [place] [id number] [facility] Internal [address] [facility] Nov, [place], [place] [id number] [facility] Internal [address] [facility] Nov, [place], [place] [id number] [facility] Internal [address] [facility] Nov, [place], [place] [id number] [facility] Internal [address] [facility] Oct, Hyperte nsion 401.9 [place], [place] [id number] [facility] Internal [address] [facility] Oct, HTN [Hy pertension] 401.9 [place], [place] [id number] [facility] Internal [address] [facility] Oct, Hyperte nsion 401.9 and [place] Obesity 278.0 0 [id number] [facility] Internal [address] [facility] September, [place], [place] [id number] [facility] Internal [address] [facility] Jul, Hyperte nsion 401.9 [place], [place] [id number] [facility] Internal [address] [facility] Jul, [place], [place] [id number] [facility] Internal [address] [facility] Jul, URI [Up per respiratory [place], [place] infection] 46 0 [id number] [facility] Internal [address] [facility] Feb, HTN [Hy pertension] 401.9 [place], [place] [id number] [address] Feb, [place] [id number] [address] Dec, [place] [id number] [address] Dec, [place], [place] [id number] [address] Dec, HTN [Hy pertension] 401.9 [place] and Bursitis 727.[id number] [place] [address] Nov, Hypergl ycaemia NOS 790.6 [place] [id number] [address] Nov, Bursiti s NOS 727.3 and HTN [place] [Hypertension ] 401.[id number] Aug, [place], [place] [id number] [address] Aug, HTN [Hy pertension] 401.9 [place], [place] [id number] UNKNOWN Jul, IMMUNIZATIONS Vaccine Route Administration Date Status Flu HIGH Dose IM Intramuscular Mar 13, 2019 Administered OCD Flu Vaccine HIGH Dose 65YR and IM Intramuscular Mar 08, 2018 Administered greater - Fluzone OCD Flu Vaccine HIGH Dose 65YR and IM Intramuscular Mar 02, 2017 Administered greater - Fluzone Flu VACC 6 MONTHS > Unknown Mar 14, 2014 Administered Tdap - Adult Unknown Jan 13, 2011 Administered CHARLIE - Flu VACC 6 MONTHS > Unknown Mar 07, 2013 Admini stered CHARLIE - Flu VACC 6 MONTHS > Unknown Feb 24, 2011 Admini stered CHARLIE - Flu VACC 6 MONTHS > Unknown Mar 06, 2010 Admini stered H1N1 Injectable Vaccine (4 yrs and Unknown Mar 25, 2009 Administered older) SOCIAL HISTORY Qualifiers Date Never Smoker REASON FOR REFERRAL FUNCTIONAL STATUS PLAN OF CARE Activity Details Follow Up 2 years Reason: Future Appointment Provider Name:Yuri Alcala, 2023-11-10 11:15:00 AM, [address] [facility], [address], [place], [place], [id number], Future Test BASIC METABOLIC PROFILE 2018 1113 Future Test LIPID PROFILE [id number] Future Test CBC, NO DIFF 04017299 Future Test CBC, NO DIFF [id number] VITAL SIGNS Height 57 in 2021-11-07 Height 57 in 2020-02-27 Height 57 in 2019-11-08 Height 57 in 2019-03-13 Height 57 in 2018-12-20 Height 57 in 2018-11-04 Height 57 in 2018-03-08 Height 57 in 2017-11-03 Height 57 in 2017-03-02 Height 57 in 2016-10-28 Height 57 in 2016-08-03 Height 57 in 2016-02-28 Height 57 in 2015-11-19 Height 57 in 2015-10-16 Height 58 in 2015-05-29 Height 58 in 2015-02-13 Height 58 in 2015-01-02 Height 58 in 2014-11-28 Height 58 in 2014-11-27 Height 58 in 2014-11-07 Height 58 in 2014-10-10 Height 58 in 2014-06-01 Height 58 in 2014-04-13 Height 58 in 2014-03-20 Height 58 in 2014-01-10 Height 58 in 2013-11-29 Height 58 in 2013-10-09 Height 58 in 2013-07-21 Height 58 in 2013-05-12 Height 58 in 2013-04-11 Height 58 in 2012-10-21 Height 58 in 2012-10-14 Height N/A in 2012-09-19 Height N/A in 2012-01-22 Height 58 in 2010-12-15 Height 58 in 2010-10-16 Height 58 in 2010-10-10 Height 58 in 2010-04-10 Weight 180.2 lbs 2021-11-07 Weight 182.4 lbs 2020-02-27 Weight 186.6 lbs 2019-11-08 Weight 189.2 lbs 2019-03-13 Weight 186.4 lbs 2018-12-20 Weight 186 lb 4 oz lbs 2018-11-04 Weight 186.2 lbs 2018-03-08 Weight 191.2 lbs 2017-11-03 Weight 184.6 lbs 2017-03-02 Weight 184 lbs 2016-10-28 Weight 177 lbs 2016-08-03 Weight 179 lbs 2016-02-28 Weight 182 lb 4 oz lbs 2015-11-19 Weight 182 lbs 2015-10-16 Weight 185 lbs 2015-05-29 Weight 190 lbs 2015-02-13 Weight 192 lbs 2015-01-02 Weight 197 lbs 2014-11-28 Weight 197 lbs 2014-11-27 Weight 194 lbs 2014-11-07 Weight 190 lbs 2014-06-01 Weight 191.8 lbs 2014-04-13 Weight 188 lbs 2014-03-20 Weight 192 lbs 2014-01-10 Weight 191.6 lbs 2013-11-29 Weight 190 lbs 2013-10-09 Weight 195.2 lbs 2013-07-21 Weight 194.6 lbs 2013-05-12 Weight 194.8 lbs 2013-04-11 Weight 196 lbs 2012-10-21 Weight 197.6 lbs 2012-10-14 Weight 196 lbs 2012-09-19 Weight 192 lbs 2012-01-22 Weight 187 lbs 2011-04-15 Weight 190.8 lbs 2010-12-15 Weight 190.6 lbs 2010-10-16 Weight 189.4 lbs 2010-10-10 Weight 185.6 lbs 2010-04-10 Weight 188.8 lbs 2010-01-09 Weight 187 lbs 2009-11-19 Weight 188 lbs 2009-11-07 Weight 187.2 lbs 2009-07-11 Weight 187.6 lbs 2009-07-01 Weight 187 lbs 2009-03-07 Weight 186 lbs 2009-01-10 Weight 184 lbs 2008-11-29 Weight 188.2 lbs 2008-08-31 Temperature Temporal:98.6 degrees Fahrenheit 2016-07 Temperature Temporal:98.8 degrees Fahrenheit 2014-05 Temperature Temporal:98.9 degrees Fahrenheit 2012-09 Temperature Temporal:98.9 degrees Fahrenheit 2012-09 Temperature 97.6 degrees Fahrenheit 2012-01-22 Temperature 95.7 degrees Fahrenheit 2011-04-15 Temperature 96.4 degrees Fahrenheit 2010-12-15 Temperature 96.4 degrees Fahrenheit 2010-10-16 Temperature 96.6 degrees Fahrenheit 2010-10-10 Temperature 97.2 degrees Fahrenheit 2010-10-09 Temperature 96.1 degrees Fahrenheit 2010-04-10 Temperature 96.6 degrees Fahrenheit 2010-01-09 Temperature 97.1 degrees Fahrenheit 2009-11-22 Temperature 97.2 degrees Fahrenheit 2009-11-07 Temperature 97.1 degrees Fahrenheit 2009-07-11 Temperature 97.9 degrees Fahrenheit 2009-07-01 Temperature 97.5 degrees Fahrenheit 2009-03-07 Temperature 97.3 degrees Fahrenheit 2009-01-10 Temperature 97.3 degrees Fahrenheit 2008-11-29 Temperature 97.0 degrees Fahrenheit 2008-08-31 Heart Rate 55 /min 2019-03-13 Heart Rate 103 /min 2018-12-20 Heart Rate 80 /min 2018-03-08 Heart Rate 74 /min 2017-03-02 Heart Rate 99 /min 2016-08-03 Heart Rate 66 /min 2016-02-28 Heart Rate 77 /min 2015-11-19 Heart Rate 76 /min 2015-05-29 Heart Rate 64 /min 2015-02-13 Heart Rate 67 /min 2015-01-02 Heart Rate 64 /min 2014-11-28 Heart Rate 64 /min 2014-11-27 Heart Rate 72 /min 2014-11-07 Heart Rate 72 /min 2014-06-01 Heart Rate 56 /min 2014-04-13 Heart Rate 50 /min 2014-03-20 Heart Rate 64 /min 2014-01-10 Heart Rate 72 /min 2013-11-29 Heart Rate 72 /min 2013-07-21 Heart Rate 64 /min 2013-05-12 Heart Rate 60 /min 2013-04-11 Heart Rate 72 /min 2012-10-21 Heart Rate 64 /min 2012-10-14 Heart Rate 72 /min 2012-09-19 Heart Rate 60 /min 2012-01-22 Heart Rate 60 /min 2011-04-15 Heart Rate 60 /min 2010-12-15 Heart Rate 62 /min 2010-10-10 Heart Rate 78 /min 2010-10-09 Heart Rate 60 /min 2010-04-10 Heart Rate 60 /min 2010-01-09 Heart Rate 68 /min 2009-11-22 Heart Rate 80 /min 2009-11-19 Heart Rate 60 /min 2009-11-07 Heart Rate 60- /min 2009-07-11 Heart Rate 64 /min 2009-07-01 Heart Rate 68 /min 2009-03-07 Heart Rate 68 /min 2009-01-10 Heart Rate 56 /min 2008-11-29 Heart Rate 62 /min 2008-08-31 Oximetry 99 2019-03-13 Oximetry 98 2018-12-20 Oximetry 99 2018-03-08 Oximetry 96 2017-03-02 Oximetry 97 2016-08-03 Oximetry 95 2016-02-28 Oximetry 97 2014-06-01 Oximetry 97 2014-03-20 Oximetry 94 2012-10-21 Oximetry 97 2012-10-14 Oximetry 95 2009-07-01 Oximetry 97 2008-11-29 Oximetry 95 2008-08-31 Respiratory Rate 16 /min 2015-02-13 Respiratory Rate 16 /min 2015-01-02 Respiratory Rate 16 /min 2014-11-28 Respiratory Rate 16 /min 2014-11-07 Respiratory Rate 18 /min 2012-10-21 Respiratory Rate 18 /min 2012-09-19 Respiratory Rate 18 /min 2012-01-22 Respiratory Rate 16 /min 2011-04-15 Respiratory Rate 16 /min 2010-10-09 Respiratory Rate 16 /min 2010-04-10 Respiratory Rate 16 /min 2010-01-09 Respiratory Rate 16 /min 2009-11-22 Respiratory Rate 16 /min 2009-11-19 Respiratory Rate 16 /min 2009-11-07 Respiratory Rate 16 /min 2009-07-11 Respiratory Rate 16 /min 2009-07-01 Respiratory Rate 16 /min 2009-03-07 Respiratory Rate 20 /min 2009-01-10 Respiratory Rate 18 /min 2008-11-29 Respiratory Rate 20 /min 2008-08-31 BMI 38.99 kg/m2 2021-11-07 BMI 39.47 kg/m2 2020-02-27 BMI 40.38 kg/m2 2019-11-08 BMI 40.94 kg/m2 2019-03-13 BMI 40.33 kg/m2 2018-12-20 BMI 40.30 kg/m2 2018-11-04 BMI 40.29 kg/m2 2018-03-08 BMI 41.37 kg/m2 2017-11-03 BMI 39.94 kg/m2 2017-03-02 BMI 39.81 kg/m2 2016-10-28 BMI 38.30 kg/m2 2016-08-03 BMI 38.73 kg/m2 2016-02-28 BMI 39.43 kg/m2 2015-11-19 BMI 39.38 kg/m2 2015-10-16 BMI 38.66 kg/m2 2015-05-29 BMI 39.71 kg/m2 2015-02-13 BMI 40.12 kg/m2 2015-01-02 BMI 41.17 kg/m2 2014-11-28 BMI 41.17 kg/m2 2014-11-27 BMI 40.54 kg/m2 2014-11-07 BMI 39.71 kg/m2 2014-06-01 BMI 40.08 kg/m2 2014-04-13 BMI 39.29 kg/m2 2014-03-20 BMI 40.12 kg/m2 2014-01-10 BMI 40.04 kg/m2 2013-11-29 BMI 39.71 kg/m2 2013-10-09 BMI 40.79 kg/m2 2013-07-21 BMI 40.67 kg/m2 2013-05-12 BMI 40.71 kg/m2 2013-04-11 BMI 40.96 kg/m2 2012-10-21 BMI 41.29 kg/m2 2012-10-14 BMI 40.96 kg/m2 2012-09-19 BMI 40.12 kg/m2 2012-01-22 BMI 39.87 kg/m2 2010-12-15 BMI 39.83 kg/m2 2010-10-16 BMI 39.58 kg/m2 2010-10-10 BMI 38.79 kg/m2 2010-04-10 Blood pressure systolic 140 mm Hg 2021-11-07 Blood pressure diastolic 68 mm Hg 2021-11-07 MEDICATIONS Medication Instructions Dosage Frequency Start End Duration Statu s Date Date Multivitamins Orally once a 1 tablet 24h Act ariane day Metoprolol Succinate Orally Once a 1 tablet 90 d ays Active ER 50 MG day for heart Nitroglycerin 0.4 MG Sublingual 1 tablet 90 days Not-Arsh every 5 min x ing 3 as needed for chest pain Nystatin [id number] Externally 1 application 12h 18 30 days Active UNIT/GM Twice a day Apr, 2020 Hydrocortisone 2.5 % Externally 1 application 24h 29 30 days Not-Arsh Once a day Jan, Eliquis 5 MG Orally twice a as directed 12h Active day Acetaminophen 650 MG Orally every 8 1 tablet as Active hrs prn needed Atorvastatin Calcium Orally Once a 1 tablet 90 d ays Active 80 MG day for high cholesterol Lisinopril 20 MG Orally Twice a 1 tablet 90 days Active day for heart and blood pressure Nystatin [id number] Externally 1 application 12h 29 30 days Not-Arsh UNIT/GM Twice a day to affected Jan, ing area 2019 Calcium + D 600-200 Orally twice a 1 tablet 12h Active MG-UNIT day hydroCHLOROthiazide Orally Once a 1 tablet in 90 days Active 25 MG day in am for the morning high blood pressure PROCEDURES Procedure Date Ordered Result Body Site CHARLIE ADMN FLU VAC Mar 02, 2017 OCD Flu Vaccine HIGH Dose 65YR and greater - Fluzone Mar 08 8 CHARLIE ADMN FLU VAC Mar 08, 2018 CERVICAL OR VAGINAL CANCER SCREENING November 03, 2017 26 CERVICAL OR VAGINAL CANCER SCREENING October 10, 2014 NRV CNDJ TEST 7-8 STUDIES November 19, 2015 ELECTROCARDIOGRAM READ November 14, 2009 ELECTROCARDIOGRAM READ November 15, 2009 FLU VACC HIGH DOSE 65 YR >PRSV FREE Mar 13, 2019 OCD Flu Vaccine HIGH Dose 65YR and greater - Fluzone Mar 02 7 RESULTS Name Result Date Reference Range BASIC METABOLIC PROFILE 2019-04-05 SODIUM 138 136-145 POTASSIUM 3.4 3.5-5.1 CHLORIDE 105 98-111 CO2 25 22-32 CALCIUM 9.0 8.9-10.3 BUN 19 8-26 CREATININE 0.77 0.44-1.00 EGFR 76 EGFR CMT Multiply calculated EGFR by 1.025 for Afro-americans. A/GAP 8.0 3.0-12.0 OSMOLARITY 278 275-295 B/CR 24.7 8.0-20.0 SEDIMENTATION RATE 2018-12-20 ESR 5 <=30 RHEUMATOID FACTOR ([id number]) 2018-12-20 RA Latex Turbid <10.0 0.0-13.9 XR WRIST 3 VIEW LEFT 2018-12-20 VITAMIN D - 25(OH) 2018-04-25 VIT D 41.9 30.0-100.0 VIT D INTERP VIT D STATUS RANGE Deficient <20 ng/mL Insufficiency 20-30 ng/mL Sufficiency 30-100 ng/mL Toxicit COMMENT Patients that have undergone fluorescein dye angiography without allowing enough time for clearance of the fluorescein dye may have falsely elevated Vitamin D levels. LIPID PROFILE 2018-04-11 CHOLESTEROL 106 129-209 TRIGLYCERIDES 56 10-150 HDL 35 40-80 LDL (CALCULATED) 60 RISK RATIO 3.0 RISK INTERP RISK MALE FEMALE 1/2 average 3.4 3.3 Average 5.0 4.4 2x Average 9.6 CBC, WITH AUTO DIFF 2017-12-08 WBC 9.2 4.8-10.8 RBC 5.12 4.20-5.40 HGB 14.8 12.0-16.0 HCT 46.1 37.0-47.0 MCV 90.0 81.0-99.0 MCH 28.9 27.0-31.0 MCHC 32.1 32.0-37.0 RDW-CV 14.0 11.5-14.5 PLT 155 130-400 MPV 10.6 7.4-10.4 NE% 64.7 42.2-75.2 LY% 23.1 20.5-51.1 MO% 10.6 1.7-9.3 EO% 1.3 0.9-2.9 BA% 0.2 0.0-0.8 NE# 6.0 1.4-6.5 LY# 2.1 1.2-3.4 MO# 1.0 0.1-0.6 EO# 0.1 0.0-0.2 BA# 0.0 0.0-0.2 CBC, WITH AUTO DIFF 2017-09-02 WBC 6.2 4.8-10.8 RBC 5.30 4.20-5.40 HGB 15.1 12.0-16.0 HCT 47.1 37.0-47.0 MCV 88.9 81.0-99.0 MCH 28.5 27.0-31.0 MCHC 32.1 32.0-37.0 RDW-CV 13.5 11.5-14.5 PLT 112 130-400 MPV 11.4 7.4-10.4 NE% 56.5 42.2-75.2 LY% 33.7 20.5-51.1 MO% 7.8 1.7-9.3 EO% 1.6 0.9-2.9 BA% 0.2 0.0-0.8 NE# 3.5 1.4-6.5 LY# 2.1 1.2-3.4 MO# 0.5 0.1-0.6 EO# 0.1 0.0-0.2 BA# 0.0 0.0-0.2 XR HIP SINGLE W PELVIS 2017-07-22 XR KNEE 4 VIEW LEFT 2017-03-04 XR KNEE 4 VIEW RIGHT 2017-03-04 XR FEMUR LEFT 2016-12-03 XR FEMUR LEFT 2016-09-03 XR HIP SINGLE W PELVIS 2016-07-30 CBC, WITH MANUAL DIFF 2016-07-09 WBC 10.8 4.8-10.8 RBC 3.89 4.20-5.40 HGB 10.9 12.0-16.0 HCT 34.9 37.0-47.0 MCV 89.7 81.0-99.0 MCH 28.0 27.0-31.0 MCHC 31.2 32.0-37.0 RDW-CV 13.7 11.5-14.5 PLT 193 130-400 MPV 11.4 7.4-10.4 MANUAL DIFF MANUAL DIFFERENTIAL SEGS 63 42-75 BANDS 0-6 LYMPHS 25 20-51 MAKSIM. LYMPHS <=1 MONOS 9 2-9 EOS 2 0-3 BASO 0-1 METAS 1 MYELOS NRBC 1 PLT ESTIMATE ADEQUATE ADEQUATE RBC MORPH NORMAL NORMAL ANISO POIK MICRO MACRO HYPO POLYCHROM CBC, WITH AUTO DIFF 2016-07-08 WBC 9.8 4.8-10.8 RBC 3.33 4.20-5.40 HGB 9.3 12.0-16.0 HCT 30.4 37.0-47.0 MCV 91.3 81.0-99.0 MCH 27.9 27.0-31.0 MCHC 30.6 32.0-37.0 RDW-CV 13.5 11.5-14.5 PLT 136 130-400 MPV 10.9 7.4-10.4 NE% 59.9 42.2-75.2 LY% 27.4 20.5-51.1 MO% 8.8 1.7-9.3 EO% 2.9 0.9-2.9 BA% 0.1 0.0-0.8 NE# 5.9 1.4-6.5 LY# 2.7 1.2-3.4 MO# 0.9 0.1-0.6 EO# 0.3 0.0-0.2 BA# 0.0 0.0-0.2 SMEAR COMMENT SEE COMMENTS SEE COMMENTS CBC, WITH MANUAL DIFF 2016-07-07 WBC 16.1 4.8-10.8 RBC 3.61 4.20-5.40 HGB 10.1 12.0-16.0 HCT 32.1 37.0-47.0 MCV 88.9 81.0-99.0 MCH 28.0 27.0-31.0 MCHC 31.5 32.0-37.0 RDW-CV 13.4 11.5-14.5 PLT 141 130-400 MPV 11.3 7.4-10.4 MANUAL DIFF MANUAL DIFFERENTIAL SEGS 70 42-75 BANDS 0-6 LYMPHS 24 20-51 MAKSIM. LYMPHS <=1 MONOS 6 2-9 EOS 0-3 BASO 0-1 METAS MYELOS NRBC 1 PLT ESTIMATE ADEQUATE ADEQUATE RBC MORPH NORMAL NORMAL ANISO POIK MICRO MACRO HYPO POLYCHROM CBC, WITH MANUAL DIFF 2016-07-06 WBC 20.3 4.8-10.8 RBC 3.65 4.20-5.40 HGB 10.3 12.0-16.0 HCT 32.5 37.0-47.0 MCV 89.0 81.0-99.0 MCH 28.2 27.0-31.0 MCHC 31.7 32.0-37.0 RDW-CV 13.0 11.5-14.5 PLT 113 130-400 MPV 12.1 7.4-10.4 MANUAL DIFF MANUAL DIFFERENTIAL SEGS 90 42-75 BANDS 0-6 LYMPHS 8 20-51 MAKSIM. LYMPHS <=1 MONOS 2 2-9 EOS 0-3 BASO 0-1 METAS MYELOS NRBC PLT ESTIMATE DECREASED ADEQUATE RBC MORPH NORMAL NORMAL ANISO POIK MICRO MACRO HYPO POLYCHROM CULTURE BLOOD 2016-07-05 CBC, WITH AUTO DIFF 2016-07-05 WBC 16.2 4.8-10.8 RBC 3.51 4.20-5.40 HGB 9.9 12.0-16.0 HCT 31.2 37.0-47.0 MCV 88.9 81.0-99.0 MCH 28.2 27.0-31.0 MCHC 31.7 32.0-37.0 RDW-CV 12.7 11.5-14.5 PLT 69 130-400 MPV 12.9 7.4-10.4 NE% 87.4 42.2-75.2 LY% 8.8 20.5-51.1 MO% 3.5 1.7-9.3 EO% 0.0 0.9-2.9 BA% 0.1 0.0-0.8 NE# 14.2 1.4-6.5 LY# 1.4 1.2-3.4 MO# 0.6 0.1-0.6 EO# 0.0 0.0-0.2 BA# 0.0 0.0-0.2 CULTURE BLOOD 2016-07-05 URINALYSIS DIP w/REFLEX MICRO 2016-07-05 COLOR Yellow YELLOW CLARITY Clear CLEAR SPECIFIC GRAVITY 1.020 1.000-1.030 pH 5.5 5.0-8.0 PROTEIN 30 mg/dL NEGATIVE GLUCOSE Negative NEGATIVE KETONES Trace NEGATIVE UROBILINOGEN 1.0 E.U./dL 0.2 E.U./DL BILIRUBIN Negative NEGATIVE BLOOD Negative NEGATIVE LEUKOCYTES Negative NEGATIVE NITRITES Negative NEGATIVE XR CHEST PORTABLE 2016-07-05 CBC, WITH AUTO DIFF 2016-07-04 WBC 13.7 4.8-10.8 RBC 3.77 4.20-5.40 HGB 10.6 12.0-16.0 HCT 34.0 37.0-47.0 MCV 90.2 81.0-99.0 MCH 28.1 27.0-31.0 MCHC 31.2 32.0-37.0 RDW-CV 12.9 11.5-14.5 PLT 61 130-400 MPV 12.3 7.4-10.4 NE% 90.7 42.2-75.2 LY% 6.7 20.5-51.1 MO% 2.2 1.7-9.3 EO% 0.1 0.9-2.9 BA% 0.1 0.0-0.8 NE# 12.4 1.4-6.5 LY# 0.9 1.2-3.4 MO# 0.3 0.1-0.6 EO# 0.0 0.0-0.2 BA# 0.0 0.0-0.2 CBC, WITH AUTO DIFF 2016-07-04 WBC 13.5 4.8-10.8 RBC 3.72 4.20-5.40 HGB 10.4 12.0-16.0 HCT 34.0 37.0-47.0 MCV 91.4 81.0-99.0 MCH 28.0 27.0-31.0 MCHC 30.6 32.0-37.0 RDW-CV 13.1 11.5-14.5 PLT 58 130-400 MPV 12.0 7.4-10.4 NE% 72.6 42.2-75.2 LY% 14.7 20.5-51.1 MO% 9.1 1.7-9.3 EO% 3.3 0.9-2.9 BA% 0.2 0.0-0.8 NE# 9.8 1.4-6.5 LY# 2.0 1.2-3.4 MO# 1.2 0.1-0.6 EO# 0.4 0.0-0.2 BA# 0.0 0.0-0.2 SMEAR? YES SMEAR COMMENT SEE COMMENTS SEE COMMENTS XR HIP SINGLE W PELVIS 2016-07-03 CBC, WITH AUTO DIFF 2016-07-03 WBC 12.4 4.8-10.8 RBC 4.72 4.20-5.40 HGB 13.3 12.0-16.0 HCT 42.1 37.0-47.0 MCV 89.2 81.0-99.0 MCH 28.2 27.0-31.0 MCHC 31.6 32.0-37.0 RDW-CV 13.3 11.5-14.5 PLT 111 130-400 MPV 11.4 7.4-10.4 NE% 76.8 42.2-75.2 LY% 14.4 20.5-51.1 MO% 6.9 1.7-9.3 EO% 1.5 0.9-2.9 BA% 0.2 0.0-0.8 NE# 9.5 1.4-6.5 LY# 1.8 1.2-3.4 MO# 0.9 0.1-0.6 EO# 0.2 0.0-0.2 BA# 0.0 0.0-0.2 SC C ARM LESS THAN 1 HOUR 2016-07-03 XR HIP SINGLE W PELVIS 2016-07-03 CBC, WITH AUTO DIFF 2016-07-02 WBC 14.1 4.8-10.8 RBC 5.04 4.20-5.40 HGB 14.2 12.0-16.0 HCT 44.7 37.0-47.0 MCV 88.7 81.0-99.0 MCH 28.2 27.0-31.0 MCHC 31.8 32.0-37.0 RDW-CV 13.1 11.5-14.5 PLT 130 130-400 MPV 10.9 7.4-10.4 NE% 85.6 42.2-75.2 LY% 8.5 20.5-51.1 MO% 5.5 1.7-9.3 EO% 0.1 0.9-2.9 BA% 0.1 0.0-0.8 NE# 12.0 1.4-6.5 LY# 1.2 1.2-3.4 MO# 0.8 0.1-0.6 EO# 0.0 0.0-0.2 BA# 0.0 0.0-0.2 PT/APTT PANEL 2016-07-02 PROTIME 10.7 9.4-10.9 INR 1.1 0.9-1.1 INR_TEXT THERAPEUTIC INR RANGES FOR WARFARIN Uncomplicated venous thromboembolic disease 2 - 3 Lupus Anticoagulant and recurrent thrombis 3 - 3.5 Mechanical prosthetic valve APTT 23.7 22.4-30.4 COMPREHENSIVE METABOLIC 2016-07-02 PROFILE SODIUM 142 136-145 POTASSIUM 3.6 3.5-5.1 CHLORIDE 103 98-111 CO2 30 22-32 CALCIUM 9.3 8.9-10.3 BUN 17 8-26 CREATININE 0.79 0.44-1.00 TOTAL BILIRUBIN 0.7 0.3-1.2 TOTAL PROTEIN 6.5 6.5-8.1 ALBUMIN 3.8 3.5-5.0 ALKALINE PHOS 92 38-130 ALT 21 14-54 AST 30 15-41 A/GAP 9.0 3.0-12.0 B/CR 21.5 8.0-20.0 OSMOLARITY 286 275-295 GLOBULIN 2.7 2.3-3.5 A/G 1.4 1.0-2.5 MRSA NARES PCR 2016-07-02 MRSA Screen (Nares) NEGATIVE NEGATIVE MSSA NASAL NEGATIVE NEGATIVE MRSA_TEXT A positive test result does not necessarily indicate the presence of viable organisms. It is presumptive for MRSA. Therapeutic success or failure cannot be assessed using this method because DNA par XR LUMBAR SPINE 2 OR 3 VIEW 2016-07-02 XR HIP SINGLE W PELVIS 2016-07-02 CBC, WITH AUTO DIFF 2016-04-16 WBC 7.5 4.8-10.8 RBC 4.91 4.20-5.40 HGB 14.2 12.0-16.0 HCT 44.6 37.0-47.0 MCV 90.8 81.0-99.0 MCH 28.9 27.0-31.0 MCHC 31.8 32.0-37.0 RDW-CV 13.3 11.5-14.5 PLT 124 130-400 MPV 11.8 7.4-10.4 NE% 64.0 42.2-75.2 LY% 25.5 20.5-51.1 MO% 7.2 1.7-9.3 EO% 2.8 0.9-2.9 BA% 0.4 0.0-0.8 NE# 4.8 1.4-6.5 LY# 1.9 1.2-3.4 MO# 0.5 0.1-0.6 EO# 0.2 0.0-0.2 BA# 0.0 0.0-0.2 LIPID PROFILE 2016-04-16 CHOLESTEROL 104 129-209 TRIGLYCERIDES 84 48-210 HDL 30 39-90 LDL (CALCULATED) 57 RISK RATIO 3.5 RISK INTERP RISK MALE FEMALE 1/2 average 3.4 3.3 Average 5.0 4.4 2x Average 9.6 CBC, WITH AUTO DIFF 2016-02-20 WBC 7.2 4.8-10.8 RBC 4.78 4.20-5.40 HGB 14.1 12.0-16.0 HCT 43.7 37.0-47.0 MCV 91.4 81.0-99.0 MCH 29.5 27.0-31.0 MCHC 32.3 32.0-37.0 RDW-CV 13.1 11.5-14.5 PLT 97 130-400 MPV 11.6 7.4-10.4 NE% 72.0 42.2-75.2 LY% 19.6 20.5-51.1 MO% 6.5 1.7-9.3 EO% 1.5 0.9-2.9 BA% 0.3 0.0-0.8 NE# 5.2 1.4-6.5 LY# 1.4 1.2-3.4 MO# 0.5 0.1-0.6 EO# 0.1 0.0-0.2 BA# 0.0 0.0-0.2 CBC, WITH AUTO DIFF 2015-11-21 WBC 7.6 4.8-10.8 RBC 4.87 4.20-5.40 HGB 14.2 12.0-16.0 HCT 44.7 37.0-47.0 MCV 91.8 81.0-99.0 MCH 29.2 27.0-31.0 MCHC 31.8 32.0-37.0 RDW-CV 14.0 11.5-14.5 PLT 118 130-400 MPV 12.2 7.4-10.4 NE% 74.5 42.2-75.2 LY% 17.4 20.5-51.1 MO% 5.1 1.7-9.3 EO% 2.4 0.9-2.9 BA% 0.5 0.0-0.8 NE# 5.7 1.4-6.5 LY# 1.3 1.2-3.4 MO# 0.4 0.1-0.6 EO# 0.2 0.0-0.2 BA# 0.0 0.0-0.2 SEDIMENTATION RATE 2015-11-21 ESR 14 <=30 GLYCOHEMOGLOBIN A1C 2015-11-21 est Average Glucose 126 70-105 VITAMIN B12 & FOLATE 2015-11-21 CREATINE KINASE (CK) 2015-11-21 CK 90 26-192 IMMUNOFIXATION (NIMESH) SERUM 2015-11-21 ([id number]) Immunofixation Result, Serum Comment Immunoglobulin G, Qn, Serum 424 700- 1600 Immunoglobulin A, Qn, Serum 42 64-4 22 Immunoglobulin M, Qn, Serum 23 26-2 17 PROTEIN ELECTROPHORESIS, SERUM 2015-11-21 ([id number]) Protein, Total, Serum 5.7 6.0-8.5 Albumin 3.4 2.9-4.4 Pyvzm-3-Rejgbrab 0.2 0.0-0.4 Llwvs-9-Hiepyjxk 0.7 0.4-1.0 Beta Globulin 0.9 0.7-1.3 Gamma Globulin 0.5 0.4-1.8 M-Bryan Not Observed Not Observed Globulin, Total 2.3 2.2-3.9 A/G Ratio 1.5 0.7-1.7 Please note: Comment VITAMIN D - 25(OH) 2015-11-21 VIT D 38.0 30.0-100.0 TSH w/REFLEX TO FT4 2015-11-21 MG MAMMOGRAPHY BILATERAL SCREENING CBC, WITH AUTO DIFF 2015-08-16 WBC 9.0 4.8-10.8 RBC 5.12 4.20-5.40 HGB 14.6 12.0-16.0 HCT 45.7 37.0-47.0 MCV 89.3 81.0-99.0 MCH 28.5 27.0-31.0 MCHC 31.9 32.0-37.0 RDW-CV 13.5 11.5-14.5 PLT 131 130-400 MPV 12.0 7.4-10.4 NE% 72.2 42.2-75.2 LY% 16.6 20.5-51.1 MO% 8.4 1.7-9.3 EO% 2.3 0.9-2.9 BA% 0.3 0.0-0.8 NE# 6.5 1.4-6.5 LY# 1.5 1.2-3.4 MO# 0.8 0.1-0.6 EO# 0.2 0.0-0.2 BA# 0.0 0.0-0.2 CBC, WITH AUTO DIFF 2015-07-04 WBC 9.1 4.8-10.8 RBC 5.13 4.20-5.40 HGB 14.8 12.0-16.0 HCT 46.3 37.0-47.0 MCV 90.3 81.0-99.0 MCH 28.8 27.0-31.0 MCHC 32.0 32.0-37.0 RDW-CV 13.3 11.5-14.5 PLT 89 130-400 MPV 12.6 7.4-10.4 NE% 73.0 42.2-75.2 LY% 16.7 20.5-51.1 MO% 7.5 1.7-9.3 EO% 2.2 0.9-2.9 BA% 0.4 0.0-0.8 NE# 6.6 1.4-6.5 LY# 1.5 1.2-3.4 MO# 0.7 0.1-0.6 EO# 0.2 0.0-0.2 BA# 0.0 0.0-0.2 COMPREHENSIVE METABOLIC 2015-07-04 PROFILE SODIUM 147 136-145 POTASSIUM 4.4 3.5-5.1 CHLORIDE 108 98-107 CO2 29 21-32 CALCIUM 9.0 8.5-10.1 BUN 15 7-18 CREATININE 0.83 0.55-1.02 TOTAL BILIRUBIN 0.6 0.0-1.0 TOTAL PROTEIN 5.7 6.4-8.2 ALT 43 12-78 AST 27 15-37 A/GAP 10.0 3.0-12.0 B/CR 18.1 8.0-20.0 OSMOLARITY 293 275-295 GLOBULIN 2.1 2.3-3.5 A/G 1.7 1.0-2.5 CBC, WITH AUTO DIFF 2015-06-06 WBC 9.4 4.8-10.8 RBC 4.96 4.20-5.40 HGB 14.4 12.0-16.0 HCT 45.2 37.0-47.0 MCV 91.1 81.0-99.0 MCH 29.0 27.0-31.0 MCHC 31.9 32.0-37.0 RDW-CV 13.9 11.5-14.5 PLT 115 130-400 MPV 12.6 7.4-10.4 NE% 67.6 42.2-75.2 LY% 19.8 20.5-51.1 MO% 8.2 1.7-9.3 EO% 3.7 0.9-2.9 BA% 0.4 0.0-0.8 NE# 6.4 1.4-6.5 LY# 1.9 1.2-3.4 MO# 0.8 0.1-0.6 EO# 0.4 0.0-0.2 BA# 0.0 0.0-0.2 CBC, WITH AUTO DIFF 2015-05-10 WBC 8.9 4.8-10.8 RBC 4.60 4.20-5.40 HGB 13.3 12.0-16.0 HCT 41.2 37.0-47.0 MCV 89.6 81.0-99.0 MCH 28.9 27.0-31.0 MCHC 32.3 32.0-37.0 RDW-CV 14.3 11.5-14.5 PLT 130 130-400 MPV 12.3 7.4-10.4 NE% 67.8 42.2-75.2 LY% 19.5 20.5-51.1 MO% 9.4 1.7-9.3 EO% 2.8 0.9-2.9 BA% 0.3 0.0-0.8 NE# 6.0 1.4-6.5 LY# 1.7 1.2-3.4 MO# 0.8 0.1-0.6 EO# 0.3 0.0-0.2 BA# 0.0 0.0-0.2 TROPONIN I 2015-04-23 TROP HEAD Patients with a Troponin level of >0.03 ng/mL, having no ST segment elevation and normal CKMB levels are at increased risk of . Elevated levels of Troponin I are detectable in serum within 3-6 XR CHEST PA&LAT 2015-04-23 BASIC METABOLIC PROFILE 2015-04-23 SODIUM 145 136-145 POTASSIUM 3.8 3.5-5.1 CHLORIDE 106 98-107 CO2 30 21-32 CALCIUM 9.6 8.5-10.1 BUN 18 7-18 CREATININE 1.03 0.55-1.02 EGFR 55 EGFR CMT Multiply calculated EGFR by 1.025 for Afro-americans. A/GAP 9.0 3.0-12.0 OSMOLARITY 292 275-295 B/CR 17.5 8.0-20.0 CBC, WITH AUTO DIFF 2015-04-23 WBC 8.1 4.8-10.8 RBC 4.88 4.20-5.40 HGB 13.9 12.0-16.0 HCT 42.8 37.0-47.0 MCV 87.7 81.0-99.0 MCH 28.5 27.0-31.0 MCHC 32.5 32.0-37.0 RDW-CV 13.8 11.5-14.5 PLT 90 130-400 MPV 11.8 7.4-10.4 NE% 73.5 42.2-75.2 LY% 17.0 20.5-51.1 MO% 8.5 1.7-9.3 EO% 0.7 0.9-2.9 BA% 0.2 0.0-0.8 NE# 6.0 1.4-6.5 LY# 1.4 1.2-3.4 MO# 0.7 0.1-0.6 EO# 0.1 0.0-0.2 BA# 0.0 0.0-0.2 PT/APTT PANEL 2015-04-23 PROTIME 10.6 9.2-10.8 INR 1.1 0.9-1.1 INR_TEXT THERAPEUTIC INR RANGES FOR WARFARIN Uncomplicated venous thromboembolic disease 2 - 3 Lupus Anticoagulant and recurrent thrombis 3 - 3.5 Mechanical prosthetic valve APTT 25.1 22.5-30.6 MAGNESIUM 2015-04-23 MAGNESIUM 1.8 1.8-2.4 TROPONIN I 2015-04-23 TROP HEAD Patients with a Troponin level of >0.03 ng/mL, having no ST segment elevation and normal CKMB levels are at increased risk of . Elevated levels of Troponin I are detectable in serum within 3-6 XR CHEST PORTABLE 2015-04-23 BD BONE DENSITY, DEXA SCAN 2015-04-05 CBC, WITH AUTO DIFF 2015-03-28 WBC 9.0 4.8-10.8 RBC 4.78 4.20-5.40 HGB 13.7 12.0-16.0 HCT 41.4 37.0-47.0 MCV 86.6 81.0-99.0 MCH 28.7 27.0-31.0 MCHC 33.1 32.0-37.0 RDW-CV 13.6 11.5-14.5 PLT 98 130-400 MPV 11.6 7.4-10.4 NE% 69.0 42.2-75.2 LY% 18.4 20.5-51.1 MO% 10.1 1.7-9.3 EO% 2.1 0.9-2.9 BA% 0.2 0.0-0.8 NE# 6.2 1.4-6.5 LY# 1.7 1.2-3.4 MO# 0.9 0.1-0.6 EO# 0.2 0.0-0.2 BA# 0.0 0.0-0.2 CBC, WITH AUTO DIFF 2015-03-01 WBC 7.0 4.8-10.8 RBC 5.04 4.20-5.40 HGB 14.4 12.0-16.0 HCT 44.4 37.0-47.0 MCV 88.1 81.0-99.0 MCH 28.6 27.0-31.0 MCHC 32.4 32.0-37.0 RDW-CV 13.2 11.5-14.5 PLT 92 130-400 MPV 12.6 7.4-10.4 NE% 69.1 42.2-75.2 LY% 18.5 20.5-51.1 MO% 9.3 1.7-9.3 EO% 2.2 0.9-2.9 BA% 0.6 0.0-0.8 NE# 4.8 1.4-6.5 LY# 1.3 1.2-3.4 MO# 0.7 0.1-0.6 EO# 0.2 0.0-0.2 BA# 0.0 0.0-0.2 CBC, WITH AUTO DIFF 2015-01-31 WBC 8.0 4.8-10.8 RBC 4.82 4.20-5.40 HGB 14.0 12.0-16.0 HCT 42.9 37.0-47.0 MCV 89.0 81.0-99.0 MCH 29.0 27.0-31.0 MCHC 32.6 32.0-37.0 RDW-CV 12.9 11.5-14.5 PLT 100 130-400 MPV 11.9 7.4-10.4 NE% 67.2 42.2-75.2 LY% 21.4 20.5-51.1 MO% 9.6 1.7-9.3 EO% 1.2 0.9-2.9 BA% 0.5 0.0-0.8 NE# 5.4 1.4-6.5 LY# 1.7 1.2-3.4 MO# 0.8 0.1-0.6 EO# 0.1 0.0-0.2 BA# 0.0 0.0-0.2 CBC, WITH AUTO DIFF 2015-01-03 WBC 6.3 4.8-10.8 RBC 4.60 4.20-5.40 HGB 13.3 12.0-16.0 HCT 41.2 37.0-47.0 MCV 89.6 81.0-99.0 MCH 28.9 27.0-31.0 MCHC 32.3 32.0-37.0 RDW-CV 13.5 11.5-14.5 PLT 118 130-400 MPV 11.8 7.4-10.4 NE% 67.3 42.2-75.2 LY% 19.6 20.5-51.1 MO% 10.0 1.7-9.3 EO% 2.4 0.9-2.9 BA% 0.5 0.0-0.8 NE# 4.2 1.4-6.5 LY# 1.2 1.2-3.4 MO# 0.6 0.1-0.6 EO# 0.2 0.0-0.2 BA# 0.0 0.0-0.2 CBC, WITH AUTO DIFF 2014-12-20 WBC 7.1 4.8-10.8 RBC 4.57 4.20-5.40 HGB 13.1 12.0-16.0 HCT 40.8 37.0-47.0 MCV 89.3 81.0-99.0 MCH 28.7 27.0-31.0 MCHC 32.1 32.0-37.0 RDW-CV 14.0 11.5-14.5 PLT 102 130-400 MPV 11.5 7.4-10.4 NE% 71.4 42.2-75.2 LY% 18.2 20.5-51.1 MO% 8.0 1.7-9.3 EO% 2.0 0.9-2.9 BA% 0.3 0.0-0.8 NE# 5.1 1.4-6.5 LY# 1.3 1.2-3.4 MO# 0.6 0.1-0.6 EO# 0.1 0.0-0.2 BA# 0.0 0.0-0.2 CBC, WITH AUTO DIFF 2014-12-06 WBC 7.9 4.8-10.8 RBC 4.70 4.20-5.40 HGB 13.5 12.0-16.0 HCT 41.7 37.0-47.0 MCV 88.7 81.0-99.0 MCH 28.7 27.0-31.0 MCHC 32.4 32.0-37.0 RDW-CV 14.6 11.5-14.5 PLT 120 130-400 MPV 12.0 7.4-10.4 NE% 68.7 42.2-75.2 LY% 21.1 20.5-51.1 MO% 8.3 1.7-9.3 EO% 1.1 0.9-2.9 BA% 0.4 0.0-0.8 NE# 5.4 1.4-6.5 LY# 1.7 1.2-3.4 MO# 0.7 0.1-0.6 EO# 0.1 0.0-0.2 BA# 0.0 0.0-0.2 CBC, WITH AUTO DIFF 2014-11-01 WBC 10.0 4.8-10.8 RBC 4.91 4.20-5.40 HGB 14.0 12.0-16.0 HCT 43.0 37.0-47.0 MCV 87.6 81.0-99.0 MCH 28.5 27.0-31.0 MCHC 32.6 32.0-37.0 RDW-CV 14.3 11.5-14.5 PLT 116 130-400 MPV 11.1 7.4-10.4 NE% 76.1 42.2-75.2 LY% 15.1 20.5-51.1 MO% 5.8 1.7-9.3 EO% 2.3 0.9-2.9 BA% 0.2 0.0-0.8 NE# 7.6 1.4-6.5 LY# 1.5 1.2-3.4 MO# 0.6 0.1-0.6 EO# 0.2 0.0-0.2 BA# 0.0 0.0-0.2 CBC, WITH AUTO DIFF 2014-10-25 WBC 8.8 4.8-10.8 RBC 4.83 4.20-5.40 HGB 13.5 12.0-16.0 HCT 42.5 37.0-47.0 MCV 88.0 81.0-99.0 MCH 28.0 27.0-31.0 MCHC 31.8 32.0-37.0 RDW-CV 14.6 11.5-14.5 PLT 58 130-400 MPV 11.9 7.4-10.4 NE% 78.1 42.2-75.2 LY% 9.9 20.5-51.1 MO% 9.9 1.7-9.3 EO% 1.7 0.9-2.9 BA% 0.2 0.0-0.8 NE# 6.9 1.4-6.5 LY# 0.9 1.2-3.4 MO# 0.9 0.1-0.6 EO# 0.2 0.0-0.2 BA# 0.0 0.0-0.2 XR SHOULDER LEFT 2014-10-25 CBC, WITH AUTO DIFF 2014-10-18 WBC 9.8 4.8-10.8 RBC 5.03 4.20-5.40 HGB 14.1 12.0-16.0 HCT 44.1 37.0-47.0 MCV 87.7 81.0-99.0 MCH 28.0 27.0-31.0 MCHC 32.0 32.0-37.0 RDW-CV 14.3 11.5-14.5 PLT 92 130-400 MPV 11.4 7.4-10.4 NE% 72.7 42.2-75.2 LY% 16.9 20.5-51.1 MO% 8.9 1.7-9.3 EO% 0.8 0.9-2.9 BA% 0.2 0.0-0.8 NE# 7.1 1.4-6.5 LY# 1.7 1.2-3.4 MO# 0.9 0.1-0.6 EO# 0.1 0.0-0.2 BA# 0.0 0.0-0.2 CBC, WITH AUTO DIFF 2014-10-11 WBC 4.9 4.8-10.8 RBC 4.87 4.20-5.40 HGB 13.8 12.0-16.0 HCT 42.9 37.0-47.0 MCV 88.1 81.0-99.0 MCH 28.3 27.0-31.0 MCHC 32.2 32.0-37.0 RDW-CV 13.9 11.5-14.5 PLT 114 130-400 MPV 11.3 7.4-10.4 NE% 56.9 42.2-75.2 LY% 29.0 20.5-51.1 MO% 9.8 1.7-9.3 EO% 3.7 0.9-2.9 BA% 0.4 0.0-0.8 NE# 2.8 1.4-6.5 LY# 1.4 1.2-3.4 MO# 0.5 0.1-0.6 EO# 0.2 0.0-0.2 BA# 0.0 0.0-0.2 CBC, WITH AUTO DIFF 2014-09-24 WBC 11.3 4.8-10.8 RBC 4.95 4.20-5.40 HGB 13.9 12.0-16.0 HCT 43.8 37.0-47.0 MCV 88.5 81.0-99.0 MCH 28.1 27.0-31.0 MCHC 31.7 32.0-37.0 RDW-CV 13.8 11.5-14.5 PLT 92 130-400 MPV 12.1 7.4-10.4 NE% 69.4 42.2-75.2 LY% 21.5 20.5-51.1 MO% 6.2 1.7-9.3 EO% 1.9 0.9-2.9 BA% 0.1 0.0-0.8 NE# 7.9 1.4-6.5 LY# 2.4 1.2-3.4 MO# 0.7 0.1-0.6 EO# 0.2 0.0-0.2 BA# 0.0 0.0-0.2 CBC, WITH AUTO DIFF 2014-09-18 WBC 9.1 4.8-10.8 RBC 5.26 4.20-5.40 HGB 14.8 12.0-16.0 HCT 45.5 37.0-47.0 MCV 86.5 81.0-99.0 MCH 28.1 27.0-31.0 MCHC 32.5 32.0-37.0 RDW-CV 13.4 11.5-14.5 PLT 54 130-400 MPV 13.7 7.4-10.4 NE% 87.2 42.2-75.2 LY% 8.6 20.5-51.1 MO% 3.4 1.7-9.3 EO% 0.0 0.9-2.9 BA% 0.1 0.0-0.8 NE# 8.0 1.4-6.5 LY# 0.8 1.2-3.4 MO# 0.3 0.1-0.6 EO# 0.0 0.0-0.2 BA# 0.0 0.0-0.2 CBC, WITH AUTO DIFF 2014-09-11 WBC 6.5 4.8-10.8 RBC 4.88 4.20-5.40 HGB 13.7 12.0-16.0 HCT 42.6 37.0-47.0 MCV 87.3 81.0-99.0 MCH 28.1 27.0-31.0 MCHC 32.2 32.0-37.0 RDW-CV 13.4 11.5-14.5 PLT 38 130-400 MPV 7.4-10.4 NE% 65.2 42.2-75.2 LY% 24.4 20.5-51.1 MO% 8.0 1.7-9.3 EO% 1.9 0.9-2.9 BA% 0.3 0.0-0.8 NE# 4.2 1.4-6.5 LY# 1.6 1.2-3.4 MO# 0.5 0.1-0.6 EO# 0.1 0.0-0.2 BA# 0.0 0.0-0.2 CBC, WITH AUTO DIFF 2014-08-13 WBC 8.5 4.8-10.8 RBC 4.99 4.20-5.40 HGB 14.0 12.0-16.0 HCT 43.7 37.0-47.0 MCV 87.6 81.0-99.0 MCH 28.1 27.0-31.0 MCHC 32.0 32.0-37.0 RDW-CV 13.6 11.5-14.5 PLT 54 130-400 MPV 12.9 7.4-10.4 NE% 67.9 42.2-75.2 LY% 21.8 20.5-51.1 MO% 8.3 1.7-9.3 EO% 1.7 0.9-2.9 BA% 0.2 0.0-0.8 NE# 5.8 1.4-6.5 LY# 1.9 1.2-3.4 MO# 0.7 0.1-0.6 EO# 0.1 0.0-0.2 BA# 0.0 0.0-0.2 CBC, WITH AUTO DIFF 2014-07-30 WBC 6.2 4.8-10.8 RBC 4.92 4.20-5.40 HGB 14.0 12.0-16.0 HCT 43.8 37.0-47.0 MCV 89.0 81.0-99.0 MCH 28.5 27.0-31.0 MCHC 32.0 32.0-37.0 RDW-CV 13.6 11.5-14.5 PLT 64 130-400 MPV 13.3 7.4-10.4 NE% 65.7 42.2-75.2 LY% 24.7 20.5-51.1 MO% 6.6 1.7-9.3 EO% 2.3 0.9-2.9 BA% 0.5 0.0-0.8 NE# 4.1 1.4-6.5 LY# 1.5 1.2-3.4 MO# 0.4 0.1-0.6 EO# 0.1 0.0-0.2 BA# 0.0 0.0-0.2 CBC, WITH AUTO DIFF 2014-07-16 WBC 6.4 4.8-10.8 RBC 4.83 4.20-5.40 HGB 13.6 12.0-16.0 HCT 43.0 37.0-47.0 MCV 89.0 81.0-99.0 MCH 28.2 27.0-31.0 MCHC 31.6 32.0-37.0 RDW-CV 13.8 11.5-14.5 PLT 67 130-400 MPV 12.2 7.4-10.4 NE% 64.7 42.2-75.2 LY% 25.1 20.5-51.1 MO% 7.6 1.7-9.3 EO% 2.0 0.9-2.9 BA% 0.3 0.0-0.8 NE# 4.2 1.4-6.5 LY# 1.6 1.2-3.4 MO# 0.5 0.1-0.6 EO# 0.1 0.0-0.2 BA# 0.0 0.0-0.2 CBC, WITH AUTO DIFF 2014-07-02 WBC 6.9 4.8-10.8 RBC 4.78 4.20-5.40 HGB 13.8 12.0-16.0 HCT 43.0 37.0-47.0 MCV 90.0 81.0-99.0 MCH 28.9 27.0-31.0 MCHC 32.1 32.0-37.0 RDW-CV 14.0 11.5-14.5 PLT 59 130-400 MPV 12.1 7.4-10.4 NE% 67.7 42.2-75.2 LY% 21.4 20.5-51.1 MO% 8.5 1.7-9.3 EO% 2.0 0.9-2.9 BA% 0.3 0.0-0.8 NE# 4.6 1.4-6.5 LY# 1.5 1.2-3.4 MO# 0.6 0.1-0.6 EO# 0.1 0.0-0.2 BA# 0.0 0.0-0.2 CBC, WITH AUTO DIFF 2014-06-18 WBC 8.3 4.8-10.8 RBC 4.87 4.20-5.40 HGB 13.9 12.0-16.0 HCT 43.8 37.0-47.0 MCV 89.9 81.0-99.0 MCH 28.5 27.0-31.0 MCHC 31.7 32.0-37.0 RDW-CV 13.6 11.5-14.5 PLT 128 130-400 MPV 11.6 7.4-10.4 NE% 69.0 42.2-75.2 LY% 20.4 20.5-51.1 MO% 9.2 1.7-9.3 EO% 0.6 0.9-2.9 BA% 0.4 0.0-0.8 NE# 5.8 1.4-6.5 LY# 1.7 1.2-3.4 MO# 0.8 0.1-0.6 EO# 0.1 0.0-0.2 BA# 0.0 0.0-0.2 CBC, WITH AUTO DIFF 2014-06-04 WBC 9.6 4.8-10.8 RBC 4.56 4.20-5.40 HGB 12.9 12.0-16.0 HCT 41.1 37.0-47.0 MCV 90.1 81.0-99.0 MCH 28.3 27.0-31.0 MCHC 31.4 32.0-37.0 RDW-CV 12.9 11.5-14.5 PLT 213 130-400 MPV 10.9 7.4-10.4 NE% 75.8 42.2-75.2 LY% 14.9 20.5-51.1 MO% 6.4 1.7-9.3 EO% 2.1 0.9-2.9 BA% 0.4 0.0-0.8 NE# 7.2 1.4-6.5 LY# 1.4 1.2-3.4 MO# 0.6 0.1-0.6 EO# 0.2 0.0-0.2 BA# 0.0 0.0-0.2 CBC, WITH AUTO DIFF 2014-05-15 WBC 6.2 4.8-10.8 RBC 4.86 4.20-5.40 HGB 14.0 12.0-16.0 HCT 43.3 37.0-47.0 MCV 89.1 81.0-99.0 MCH 28.8 27.0-31.0 MCHC 32.3 32.0-37.0 RDW-CV 13.7 11.5-14.5 PLT 26 130-400 MPV 12.1 7.4-10.4 NE% 64.9 42.2-75.2 LY% 24.2 20.5-51.1 MO% 7.1 1.7-9.3 EO% 3.1 0.9-2.9 BA% 0.5 0.0-0.8 NE# 4.0 1.4-6.5 LY# 1.5 1.2-3.4 MO# 0.4 0.1-0.6 EO# 0.2 0.0-0.2 BA# 0.0 0.0-0.2 SMEAR COMMENT SEE COMMENTS SEE COMMENTS LIPID PROFILE 2014-05-15 CHOLESTEROL 186 129-209 TRIGLYCERIDES 82 48-210 HDL 42 40-60 LDL (CALCULATED) 128 RISK RATIO 4.4 RISK INTERP RISK MALE FEMALE 1/2 average 3.4 3.3 Average 5.0 4.4 2x Average 9.6 COMPREHENSIVE METABOLIC 2014-05-15 PROFILE SODIUM 143 136-145 CHLORIDE 105 98-107 CO2 31 21-32 CALCIUM 9.0 8.5-10.1 BUN 21 7-18 CREATININE 0.90 0.60-1.00 TOTAL BILIRUBIN 0.7 0.0-1.0 TOTAL PROTEIN 6.3 6.4-8.2 ALT 25 12-78 AST 20 15-37 A/GAP 7.0 3.0-12.0 B/CR 23.3 8.0-20.0 OSMOLARITY 288 275-295 GLOBULIN 2.6 2.3-3.5 A/G 1.4 1.0-2.5 CBC, WITH AUTO DIFF 2014-04-18 WBC 8.2 4.8-10.8 RBC 4.96 4.20-5.40 HGB 14.1 12.0-16.0 HCT 43.8 37.0-47.0 MCV 88.3 81.0-99.0 MCH 28.4 27.0-31.0 MCHC 32.2 32.0-37.0 RDW-CV 13.7 11.5-14.5 PLT 51 130-400 MPV 13.5 7.4-10.4 NE% 67.3 42.2-75.2 LY% 22.1 20.5-51.1 MO% 8.3 1.7-9.3 EO% 1.7 0.9-2.9 BA% 0.5 0.0-0.8 NE# 5.5 1.4-6.5 LY# 1.8 1.2-3.4 MO# 0.7 0.1-0.6 EO# 0.1 0.0-0.2 BA# 0.0 0.0-0.2 CBC, WITH AUTO DIFF 2014-03-20 WBC 9.2 4.8-10.8 RBC 5.12 4.20-5.40 HGB 14.7 12.0-16.0 HCT 45.2 37.0-47.0 MCV 88.3 81.0-99.0 MCH 28.7 27.0-31.0 MCHC 32.5 32.0-37.0 RDW-CV 13.8 11.5-14.5 PLT 52 130-400 MPV 13.1 7.4-10.4 NE% 73.2 42.2-75.2 LY% 17.7 20.5-51.1 MO% 7.5 1.7-9.3 EO% 1.2 0.9-2.9 BA% 0.2 0.0-0.8 NE# 6.7 1.4-6.5 LY# 1.6 1.2-3.4 MO# 0.7 0.1-0.6 EO# 0.1 0.0-0.2 BA# 0.0 0.0-0.2 SMEAR COMMENT SEE COMMENTS SEE COMMENTS CBC, WITH AUTO DIFF 2014-02-20 WBC 10.0 4.8-10.8 RBC 4.89 4.20-5.40 HGB 14.0 12.0-16.0 HCT 43.3 37.0-47.0 MCV 88.5 81.0-99.0 MCH 28.6 27.0-31.0 MCHC 32.3 32.0-37.0 RDW-CV 13.3 11.5-14.5 PLT 50 130-400 MPV 12.5 7.4-10.4 NE% 71.5 42.2-75.2 LY% 19.1 20.5-51.1 MO% 7.4 1.7-9.3 EO% 1.6 0.9-2.9 BA% 0.2 0.0-0.8 NE# 7.1 1.4-6.5 LY# 1.9 1.2-3.4 MO# 0.7 0.1-0.6 EO# 0.2 0.0-0.2 BA# 0.0 0.0-0.2 XR CHEST PA&LAT 2014-01-10 CBC, WITH AUTO DIFF 2014-01-09 WBC 6.6 4.8-10.8 RBC 4.70 4.20-5.40 HGB 13.4 12.0-16.0 HCT 42.5 37.0-47.0 MCV 90.4 81.0-99.0 MCH 28.5 27.0-31.0 MCHC 31.5 32.0-37.0 RDW-CV 13.7 11.5-14.5 PLT 62 130-400 MPV 12.6 7.4-10.4 NE% 67.0 42.2-75.2 LY% 21.5 20.5-51.1 MO% 8.8 1.7-9.3 EO% 2.0 0.9-2.9 BA% 0.5 0.0-0.8 NE# 4.4 1.4-6.5 LY# 1.4 1.2-3.4 MO# 0.6 0.1-0.6 EO# 0.1 0.0-0.2 BA# 0.0 0.0-0.2 CBC, WITH AUTO DIFF 2013-12-07 WBC 8.3 4.8-10.8 RBC 4.55 4.20-5.40 HGB 12.9 12.0-16.0 HCT 40.8 37.0-47.0 MCV 89.7 81.0-99.0 MCH 28.4 27.0-31.0 MCHC 31.6 32.0-37.0 RDW-CV 13.8 11.5-14.5 PLT 86 130-400 MPV 12.3 7.4-10.4 NE% 68.0 42.2-75.2 LY% 20.8 20.5-51.1 MO% 8.8 1.7-9.3 EO% 1.7 0.9-2.9 BA% 0.5 0.0-0.8 NE# 5.7 1.4-6.5 LY# 1.7 1.2-3.4 MO# 0.7 0.1-0.6 EO# 0.1 0.0-0.2 BA# 0.0 0.0-0.2 PFT-Spirometry (with and without bronchodilator) CBC, WITH AUTO DIFF 2013 WBC 12.4 4.8-10.8 RBC 4.92 4.20-5.40 HGB 14.1 12.0-16.0 HCT 44.1 37.0-47.0 MCV 89.6 81.0-99.0 MCH 28.7 27.0-31.0 MCHC 32.0 32.0-37.0 RDW-CV 14.2 11.5-14.5 PLT 85 130-400 MPV 12.2 7.4-10.4 NE% 70.8 42.2-75.2 LY% 18.5 20.5-51.1 MO% 7.5 1.7-9.3 EO% 2.5 0.9-2.9 BA% 0.1 0.0-0.8 NE# 8.7 1.4-6.5 LY# 2.3 1.2-3.4 MO# 0.9 0.1-0.6 EO# 0.3 0.0-0.2 BA# 0.0 0.0-0.2 COMPREHENSIVE METABOLIC 2013 PROFILE SODIUM 142 136-145 CHLORIDE 104 98-107 CO2 33 21-32 CALCIUM 9.3 8.5-10.1 BUN 26 7-18 CREATININE 1.11 0.60-1.00 TOTAL BILIRUBIN 0.5 0.0-1.0 TOTAL PROTEIN 5.5 6.4-8.2 ALT 36 12-78 AST 15 15-37 A/GAP 5.0 3.0-12.0 B/CR 23.4 8.0-20.0 OSMOLARITY 289 275-295 GLOBULIN 2.0 2.3-3.5 A/G 1.8 1.0-2.5 CBC, WITH AUTO DIFF 2013-11-15 WBC 9.4 4.8-10.8 RBC 4.74 4.20-5.40 HGB 13.7 12.0-16.0 HCT 42.4 37.0-47.0 MCV 89.5 81.0-99.0 MCH 28.9 27.0-31.0 MCHC 32.3 32.0-37.0 RDW-CV 14.0 11.5-14.5 PLT 36 130-400 MPV 13.8 7.4-10.4 NE% 71.0 42.2-75.2 LY% 18.6 20.5-51.1 MO% 7.6 1.7-9.3 EO% 2.3 0.9-2.9 BA% 0.3 0.0-0.8 NE# 6.7 1.4-6.5 LY# 1.8 1.2-3.4 MO# 0.7 0.1-0.6 EO# 0.2 0.0-0.2 BA# 0.0 0.0-0.2 COMPREHENSIVE METABOLIC 2013-11-15 PROFILE SODIUM 143 136-145 CHLORIDE 103 98-107 CO2 31 21-32 CALCIUM 9.4 8.5-10.1 BUN 20 7-18 CREATININE 1.07 0.60-1.00 TOTAL BILIRUBIN 0.7 0.0-1.0 TOTAL PROTEIN 6.2 6.4-8.2 ALT 27 12-78 AST 19 15-37 A/GAP 9.0 3.0-12.0 B/CR 18.7 8.0-20.0 OSMOLARITY 288 275-295 GLOBULIN 2.3 2.3-3.5 A/G 1.7 1.0-2.5 Occult Blood, Stool, Guaiac 2013-10-09 Occult Blood, Stool, Guaiac neg CBC, WITH AUTO DIFF 2013-08-15 WBC 9.1 4.8-10.8 RBC 4.92 4.20-5.40 HGB 13.9 12.0-16.0 HCT 42.5 37.0-47.0 MCV 86.4 81.0-99.0 MCH 28.3 27.0-31.0 MCHC 32.7 32.0-37.0 RDW-CV 13.7 11.5-14.5 PLT 56 130-400 MPV 12.7 7.4-10.4 NE% 67.3 42.2-75.2 LY% 18.7 20.5-51.1 MO% 11.3 1.7-9.3 EO% 2.2 0.9-2.9 BA% 0.4 0.0-0.8 NE# 6.1 1.4-6.5 LY# 1.7 1.2-3.4 MO# 1.0 0.1-0.6 EO# 0.2 0.0-0.2 BA# 0.0 0.0-0.2 BD BONE DENSITY, DEXA SCAN 2013-03-27 CBC, WITH AUTO DIFF 2013-03-27 WBC 6.0 4.8-10.8 RBC 5.04 4.20-5.40 HEMOGLOBIN 14.2 12.0-16.0 HEMATOCRIT 44.3 37.0-47.0 MCV 87.9 81.0-99.0 MCH 28.2 27.0-31.0 MCHC 32.1 32.0-37.0 RDW 14.0 11.5-14.5 PLATELETS 74 130-400 MPV 11.6 7.4-10.4 NEUTROPHIL % 68.0 42.2-75.2 LYMPHS % 19.0 20.5-51.1 MONOCYTES % 8.9 1.7-9.3 EOSINOPHILS % 3.4 0.9-2.9 BASOPHILS % 0.5 0.0-0.8 NEUTROPHILS # 4.0 1.4-6.5 LYMPHOCYTES # 1.1 1.2-3.4 MONOCYTES # 0.5 0.1-0.6 EOSINOPHILS # 0.2 0.0-0.2 BASOPHILS # 0.0 0.0-0.2 LIPID PROFILE 2013-03-27 CHOLESTEROL 192 129-209 TRIGLYCERIDES 75 48-210 HDL CHOLESTEROL 35 40-60 LDL (CALCULATED) 142 10-100 RISK RATIO 5.5 RISK RATIO INTERP RISK MALE FEMALE 1/2 average 3.4 3.3 Average 5.0 4.4 2x Average 9.6 CBC, WITH AUTO DIFF 2012-12-27 XR KNEE 2 VIEW LEFT 2012-12-21 CBC, NO DIFF 2013-02-13 WBC RBC HEMOGLOBIN HEMATOCRIT MCV MCH MCHC RDW PLATELETS MPV CBC, NO DIFF 2012-11-03 CBC, NO DIFF 2012-10-04 CBC, NO DIFF 2012-10-07 WBC RBC HEMOGLOBIN HEMATOCRIT MCV MCH MCHC RDW PLATELETS MPV BASIC METABOLIC PROFILE 2012-09-19 SODIUM 145 136-145 CHLORIDE 106 98-107 CO2 32 21-32 CALCIUM 9.0 8.5-10.1 BLOOD UREA NITROGEN 18 7-18 CREATININE 0.90 0.60-1.00 Estimated Glom Filt Rate >60 EGFR COMMENT Multiply calculated EGFR by 1.025 for Afro-americans. OSMOLARITY 289 275-295 ANION GAP 7.0 3.0-12.0 BUN/CREATININE RATIO 20.0 8.0-20.0 CBC, NO DIFF 2012-10-04 CBC, NO DIFF 2012-10-04 WBC 6.9 RBC 5.00 HEMOGLOBIN 14.3 HEMATOCRIT 44.2 MCV 88.3 MCH 28.7 MCHC 32.5 RDW 12.4 PLATELETS 64 MPV 11.0 RUBELLA 2011-01-14 RUBELLA 31.5 9.99-500.0 VARICELLA ZOSTER IGG (8761) 2011-01-14 VARICELLA ZOSTER IGG (391533) MUMPS IGG ANTIBODIES (916397) 2011-01-14 MUMPS IGG ANTIBODIES (243344) RUBEOLA AB IGG ([id number]) 2011-01-14 RUBEOLA AB IGG (900627) HEP B SURF AB (305360) 2011-01-14 HEP B SURF AB (492522) CBC WITH DIF 2010-10-03 CBC WITH DIF WBC 6.2 4.80-10.80 RBC 4.79 4.20-5.40 HGB 14.2 12.0-16.0 HCT 41.9 37.0-47.0 MCV 87.5 81.0-99.0 MCH 29.6 27.0-31.0 MCHC 33.9 32.0-36.0 RDW 12.7 11.50-14.50 PLT 176 130-400 MPV 8.1 7.40-10.40 NE% 64.6 42.20-75.20 LY% 23.5 20.50-51.10 MO% 7.5 1.70-9.30 EO% 2.8 0.90-2.90 BA% 1.6 0.0-0.80 NE# 4.0 1.40-6.50 LY# 1.4 1.20-3.40 MO# 0.5 0.10-0.60 EO# 0.2 0.0-0.20 BA# 0.1 0.0-0.20 RBC MORPH ANISO MICRO MACRO HYPO POIK PLT ESTIMATE CHEM 14 2010-10-03 CHEM 14 (CMP) SODIUM 140 136-145 POTASSIUM 4.0 3.50-5.10 CHLORIDE 105 99-108 CO2 30 21-31 CALCIUM 9.4 8.40-10.30 GLUCOSE 106 70-105 BUN 17 7-22 CREATININE 0.96 0.30-1.10 TBIL 0.8 0.20-1.20 ALK PHOS 61 32-92 PROTEIN TOTAL 6.4 6.40-8.30 ALBUMIN 3.9 3.50-5.0 ALT 17 10-40 AST 19 10-42 A/GAP 5.0 3.0-12.0 A/G 1.6 1.0-2.50 B/CR 17.7 8.0-20.0 AGE 74 eGFR NON-AFR 57 CORONARY RISK PROFILE 2010-10-03 CORONARY RISK PROFILE CORONARY RISK PROFILE CHOLESTEROL 179 129-209 TRIGLYCERIDES 47 40-175 HDL CHOL 35 39-90 NON HDL CHOL 144 100-190 CHD RISK 5.1 2.30-5.90 CBC WITH DIF 2009-11-14 CBC WITH DIF WBC 9.1 4.80-10.80 RBC 4.83 4.20-5.40 HGB 14.4 12.0-16.0 HCT 42.4 37.0-47.0 MCV 87.8 81.0-99.0 MCH 29.8 27.0-31.0 MCHC 33.9 32.0-36.0 RDW 13.3 11.50-14.50 PLT 176 130-400 MPV 8.1 7.40-10.40 NE% 52.7 42.20-75.20 LY% 32.5 20.50-51.10 MO% 4.9 1.70-9.30 EO% 5.7 0.90-2.90 BA% 4.2 0.0-0.80 NE# 4.8 1.40-6.50 LY# 3.0 1.20-3.40 MO# 0.4 0.10-0.60 EO# 0.5 0.0-0.20 BA# 0.4 0.0-0.20 RBC MORPH ANISO MICRO MACRO HYPO PLT ESTIMATE PANEL II 2009-11-14 PANEL II SODIUM 138 136-145 POTASSIUM 3.5 3.50-5.10 CHLORIDE 105 99-108 CO2 26 21-31 CALCIUM 9.1 8.40-10.30 GLUCOSE 160 70-105 BUN 15 7-22 CREATININE 0.90 0.30-1.10 A/GAP 7.0 3.0-12.0 B/CR 16.7 8.0-20.0 AGE 73 eGFR NON-AFR 65 PT/APTT PANEL 2009-11-14 PROTIME 9.7 9.40-10.80 INR 1.0 APTT 24.5 22.0-29.80 MAGNESIUM 2009-11-14 MAGNESIUM 2.2 1.70-2.80 CPK 2009-11-14 CK 75 26-140 TROPONIN I 2009-11-14 TROPONIN I 0.01 0.01-0.50 CORONARY RISK PROFILE 2009-09-04 CORONARY RISK PROFILE CORONARY RISK PROFILE CHOLESTEROL 167 129-209 TRIGLYCERIDES 78 40-175 HDL CHOL 26 39-90 NON HDL CHOL 141 100-190 LDL DIRECT 122 10-100 CHD RISK 6.4 2.30-5.90 GLUCOSE 2009-09-04 GLUCOSE 98 70-105 PANEL II 2009-07-12 PANEL II SODIUM 139 136-145 POTASSIUM 3.6 3.50-5.10 CHLORIDE 103 99-108 CO2 32 21-31 CALCIUM 9.1 8.40-10.30 GLUCOSE 96 70-105 BUN 15 7-22 CREATININE 0.90 0.30-1.10 A/GAP 4.0 3.0-12.0 B/CR 16.7 8.0-20.0 AGE 73 eGFR NON-AFR 65 PANEL II 2008-12-06 PANEL II SODIUM 141 136-145 POTASSIUM 4.3 3.50-5.10 CHLORIDE 99 99-108 CO2 34 21-31 CALCIUM 9.6 8.40-10.30 GLUCOSE 143 70-105 BUN 25 7-22 CREATININE 0.95 0.30-1.10 A/GAP 8.0 3.0-12.0 B/CR 26.3 8.0-20.0 AGE 73 eGFR NON-AFR 61 REASON FOR VISIT MANAGER NUCLEAR 2 year check up, MANAGER NUCLEAR 2 year recheck , Rash, PC - MMPY, MANAGER NUCLEAR intertrigo, Pt reassignment - 1callback, MANAGER NUCLEAR recheck, PC-MMPY, Results, PC - severe arm pain, *MANAGER NUCLEAR recheck, ICD-9 codes, PC MMPY, MANAGER NUCLEAR recheck, PC/ F/U CAD, breast CA, MANAGER NUCLEAR EST, [facility] hip fx, 1 Year, CPE, 45 min, B12,folate, A1c, sed rate, TSH, Vitamin D, SPEP/NIMESH, cpk, 1 Year, CPE, 45 min, Lab results, WILLIAM EVAL AND TREAT EMG BILATERAL UPPER EXTREMITY, MANAGER NUCLEAR EST VISIT, PC/FUV CARDIAC EVENT, Vfib arrest, Stemi, prior auth , epistaxis, left epistaxis, SEE PN 7/1/15 , epistaxis, nasal crusting, pc MMPY, left greater than right nasal crusting and bleeding, EST MANAGER NUCLEAR , Mammogram, pc ? sinus infection for 2 weeks, pc 3 mo f/u HTN, NCPUL Poss restrictive lung disease., Shortness of Breath, CXR RESULTS, pc 6 week f/u HTN, f/u htn, PFT results/referral to Dr Mix, PFT, CPE, pc cpe, MANAGER NUCLEAR EST FOLLOW UP, annual exam, pc 2 month f/u, pc , pc , refill Hydralazine (180), PCP-1 mo f/u HTN, Update Demographics - Additional Info, Up date Demographics - Personal Info, hypertension / pt was a former pt of ., appointment , wants call back, script refills, update, clarifiaction of Cod/Guaif, PC still has cold, uri, wheezing, Pt states she has had a cold for a week -scratching throat-though is fppu-ejwcoopx-Tiso's what is bothering me States no temp, Pt states has not tried any OTC meds--, lab and script refills, CBC in 2 wks and 1 month, 8 mo fu, B/P readings, B/P readings, script refill, bp issues, script refill , scritp refill, script refill, script refill, IM 6mo f/u , script refill, PHILIPP excision cyst left face, scripts, PHILIPP ex right rastafarian, PHILIPP Cyst on face. Pt has had this for a year but it has gotten much larger and sore in past few days., PHILIPP Cyst on face, IM 3 mo f/u , requesting refill, request for refill , IM 3 mo f/u , med refills, meds, IM F/U, meds, script, IM 1 mo F/U, script, script, IM F/U, IM fu hosp dsh;elev bp, IM fu, script refill, IM fu, script, IM chest tightness/cold, fu labs, RX, script, f/u L shoulder pain, HTN, lab order for 2 hr GTT, fu bp, left arm sore for the past few weeks. Worse the past two days. Motrin with good effect, 3 mo fu htn, pre load emr clinical data Insurance Providers [facility], [facility] Health Member Patient Patient Patient Patient Patient Subscriber Subscriber Subscriber Group Insurance Plan Plan Plan Plan ID Relationship Address Phone Name Date of ID Name Date of No Type Insurance Insurance Insurance Coverage to Subscriber Address Phone Name Dates HEALTH [phone] HEALTH self Barbara [id number] PLANS [facility] [phone] PLANS [facility] [place] [id number] UNITED [phone] UNITED self Barbara [id number] HEALTHCARE [id number] HEALTHCARE [facility] [address] MEDICARE [phone] MEDICARE self Barbara [id number] [facility] [place] [address] MEDICARE [phone] MEDICARE self Barbara [id number] [place] [address] NGS [phone] NGS self Barbara [id number] MEDICARE [id number] [place] [address] UNITED [phone] UNITED self Barbara [id number] HEALTHCARE [id number] HEALTHCARE [facility] [id number] MEDICARE [phone] MEDICARE self Barbara [id number] PART A [id number] [place] [address] NGS [phone] NGS self Barbara [id number] MEDICARE [id number] [place] [address] [address]ARE [phone] MEDICARE self Barbara [id number] PART A [id number] [place] [address]
--- OUTSIDE RECORDS SUMMARY | 2022-04-03 12:30 | XMS_ITS | Summary of Care ---
:1935 Author Organization [facility] [place] Address [address] [place] [address]- Encounter 07/10/16 - 07/28/16 [facility] [address] [place] [address]- [phone] Discharge Diagnosis: Pain management Discharge Diagnosis: Coronary artery disease Discharge Diagnosis: left intertrochanteric femur fracture Discharge Diagnosis: impaired mobility Attending Physician: Manpreet Richards MD Vital Signs Most recent to oldest 1 2 3 [Reference Range]: Temperature Oral F [96.4-99.1 96.6 DegF 97.3 DegF 96 .6 DegF DegF] (07/28/16 9:06 AM) (07/27/16 3:00 PM) (07/27/16 8:5 0 AM) Peripheral Pulse Rate [60-100 89 bpm 81 bpm 90 bpm bpm] (07/28/16 9:06 AM) (07/27/16 3:00 PM) (07/27/16 8:5 4 AM) Respiratory Rate [14-20 br/min] 18 br/min 18 br/min 16 br/min (07/28/16 9:06 AM) (07/27/16 3:00 PM) (07/27/16 8:5 0 AM) Blood Pressure [90-140/60-90 133/68 mmHg 130/67 mmHg mmHg] (07/27/16 3:00 PM) (07/27/16 8:55 AM) Systolic Blood Pressure [90-140 137 mmHg mmHg] (07/28/16 9:06 AM) Diastolic Blood Pressure [60-90 66 mmHg mmHg] (07/28/16 9:06 AM) Extremity used to obtain blood Left Arm Left Arm L eft Arm pressure (07/28/16 9:06 AM) (07/22/16 9:37 AM) (07/21/16 8:4 7 AM) Cuff Size. Medium Medium Medium (07/28/16 9:06 AM) (07/22/16 9:37 AM) (07/21/16 8:4 7 AM) Temperature Oral [35.8-37.3 35.9 DegC 35.9 DegC 36.2 DegC DegC] (07/28/16 9:06 AM) (07/27/16 8:50 AM) (07/24/16 9:0 0 AM) Problem List No data available for this section Allergies, Adverse Reactions, Alerts Substance Reaction Severity Status CeleBREX Active Norvasc Active Medications acetaminophen 325 mg oral tablet 650 mg, = 2 tab, Tab, Oral, q6hr PRN, Refills 0, Pain scale 1-3 Start Date: 07/28/16 Status: Orderedaspirin 81 mg oral delayed release tablet 81 mg, = 1 tab, Oral, Daily, 30 tab, Refills 0 Start Date: 07/10/16 Status: Orderedatorvastatin 40 mg oral tablet 80 mg, = 2 tab, Tab, Oral, QHS, 60 tab, Refills 0, Print Requisition, 0 Start Date: 07/28/16 Status: Ordereddocusate sodium 100 mg oral capsule 100 mg, = 1 cap, Cap, Oral, BID, Refills 0, Hold for diarrhea Special Instructions: Hold for diarrhea Start Date: 07/28/16 Status: OrderedFlonase 50 mcg/inh nasal spray 100 mcg, 2 spray, Williams-Nasal, Nasal, Daily, Refills 0 Start Date: 07/28/16 Status: OrderedguaiFENesin 600 mg oral tablet, extended release 600 mg, = 1 tab, Tab-ER, Oral, q12hr, Refills 0 Start Date: 07/28/16 Status: Orderedhydrochlorothiazide 25 mg oral tablet 25 mg, = 1 tab, Tab, Oral, Daily, 30 tab, Refills 0, Print Requisition, 0 Start Date: 07/28/16 Status: OrderedHYDROmorphone 2 mg oral tablet 2 mg, = 1 tab, Tab, Oral, q4hr PRN, 30 tab, Refills 0, Pain, Print Requisition, 0 Start Date: 07/28/16 Status: Orderedlisinopril 20 mg oral tablet 20 mg, = 1 tab, Tab, Oral, BID, 60 tab, Refills 0, Print Requisition, 0 Start Date: 07/28/16 Status: Orderedmetoprolol succinate 50 mg oral tablet, extended release 50 mg, 1 tab, Tab-ER, Oral, Daily, 30 tab, Refills 0, Print Requisition, 0 Start Date: 07/28/16 Status: Orderedmultivitamin 1 tab, Tab, Oral, Daily, 30 tab, Refills 0 Start Date: 07/10/16 Status: OrderedRobaxin 500 mg oral tablet 500 mg, = 1 tab, Tab, Oral, QHS, 14 tab, Refills 0, Dispense: 14 day, Stop date 08/11/16 8:43:00 EDT, Print Requisition, 0 Start Date: 07/28/16 Stop Date: 08/11/16 Status: Orderedtnf pom #1 Calcium D-glucarate tnf pom #1 Calcium D-glucarate, 2 tab, Misc, Oral, Daily, Refills 0 Start Date: 07/10/16 Status: Orderedtnf pom #1 Letrozole (Femara) 2.5 mg tnf pom #1 Letrozole (Femara) 2.5 mg, 1 EA, Misc, Oral, Daily, Refills 0 Start Date: 07/10/16 Status: Ordered Results LABORATORY Most recent to oldest 1 2 3 [Reference Range]: WBC - CRD [3.98-10.04] 7.37 6.10 10.91 (07/24/16 6:15 AM) (07/23/16 5:35 AM) *HI* (07/17/16 5:40 AM ) RBC - CRD [3.93-5.22] 3.61 3.38 3.50 *LOW* *LOW* *LOW* (07/24/16 6:15 AM) (07/23/16 5:35 AM) (07/17/16 5:4 0 AM) HBG - CRD [11.2-15.7 G/DL] 10.4 G/DL 9.6 G/DL 10.2 G/DL *LOW* *LOW* *LOW* (07/24/16 6:15 AM) (07/23/16 5:35 AM) (07/17/16 5:4 0 AM) HCT - CRD [34.1-44.9 %] 33.2 % 30.9 % 32.2 % *LOW* *LOW* *LOW* (07/24/16 6:15 AM) (07/23/16 5:35 AM) (07/17/16 5:4 0 AM) MCV - CRD [82.0-100.8 fL] 92.0 fL 91.4 fL 92.0 f L (07/24/16 6:15 AM) (07/23/16 5:35 AM) (07/17/16 5:4 0 AM) MCH - CRD [25.6-32.2 pg] 28.8 pg 28.4 pg 29.1 pg (07/24/16 6:15 AM) (07/23/16 5:35 AM) (07/17/16 5:4 0 AM) MCHC - CRD [31.0-34.6 31.3 G/DL 31.1 G/DL 31.7 G/DL G/DL] (07/24/16 6:15 AM) (07/23/16 5:35 AM) (07/17/16 5:4 0 AM) RDW - CRD [11.7-14.4 %] 14.3 % 14.1 % 14.4 % (07/24/16 6:15 AM) (07/23/16 5:35 AM) (07/17/16 5:4 0 AM) MPV - CRD [8.97-11.96 fL] 10.30 fL 10.10 fL 10.90 fL (07/24/16 6:15 AM) (07/23/16 5:35 AM) (07/17/16 5:4 0 AM) Platelets - CRD [139-379] 228 237 284 (07/24/16 6:15 AM) (07/23/16 5:35 AM) (07/17/16 5:4 0 AM) Lymphs - CRD [19.3-51.7 %] 23.9 % 27.4 % 19.1 % (07/24/16 6:15 AM) (07/23/16 5:35 AM) *LOW* (07/17/16 5:40 AM ) Monocytes - CRD [4.7-12.5 7.9 % 9.0 % 8.7 % %] (07/24/16 6:15 AM) (07/23/16 5:35 AM) (07/17/16 5:4 0 AM) Neutrophils - CRD 64.4 % 59.4 % 68.8 % [34.0-71.1 %] (07/24/16 6:15 AM) (07/23/16 5:35 AM) (07/17/16 5:4 0 AM) Eosinophils - CRD [0.7-5.8 3.0 % 3.6 % 2.3 % %] (07/24/16 6:15 AM) (07/23/16 5:35 AM) (07/17/16 5:4 0 AM) Basophils - CRD [0.1-1.2 0.3 % 0.3 % 0.4 % %] (07/24/16 6:15 AM) (07/23/16 5:35 AM) (07/17/16 5:4 0 AM) Imm Granulocyte - CRD 0.5 % 0.3 % 0.7 % [0.0-0.8 %] (07/24/16 6:15 AM) (07/23/16 5:35 AM) (07/17/16 5:4 0 AM) Abs Imm Granulocyte - CRD 0.04 0.02 0.08 [0.00-0.05] (07/24/16 6:15 AM) (07/23/16 5:35 AM) *HI* (07/17/16 5:40 AM ) Abs Lymphocyte - CRD 1.76 1.67 2.08 [1.18-3.74] (07/24/16 6:15 AM) (07/23/16 5:35 AM) (07/17/16 5:4 0 AM) Abs Monocyte - CRD 0.58 0.55 0.95 [0.20-0.76] (07/24/16 6:15 AM) (07/23/16 5:35 AM) *HI* (07/17/16 5:40 AM ) Abs Eosinophil - CRD 0.22 0.22 0.25 [0.04-0.36] (07/24/16 6:15 AM) (07/23/16 5:35 AM) (07/17/16 5:4 0 AM) Abs Basophil - CRD 0.02 0.02 0.04 [0.01-0.08] (07/24/16 6:15 AM) (07/23/16 5:35 AM) (07/17/16 5:4 0 AM) Abs Neut - CRD [1.56-6.13] 4.75 3.62 7.51 (07/24/16 6:15 AM) (07/23/16 5:35 AM) *HI* (07/17/16 5:40 AM ) NRBC - CRD [0-0] 0.0 0.0 0.0 (07/24/16 6:15 AM) (07/23/16 5:35 AM) (07/17/16 5:4 0 AM) Absolute NRBC - CRD 0.000 0.000 0.000 [0.000-0.012] (07/24/16 6:15 AM) (07/23/16 5:35 AM) (07/17/16 5:4 0 AM) Culture Reflex - CRD YES *ABN* (07/14/16 2:30 PM) Color - CRD [Yellow] Yellow (07/14/16 2:30 PM) Specific [place] - CRD 1.008 [1.003-1.035] (07/14/16 2:30 PM) pH, Urine - CRD [5-9] 7 (07/14/16 2:30 PM) Glucose, Urine - CRD Negative [Negative] (07/14/16 2:30 PM) Bilirubin, Urine - CRD Negative [Negative] (07/14/16 2:30 PM) Occult Blood - CRD Negative [Negative] (07/14/16 2:30 PM) Clarity - CRD [Clear] Slightly Cloudy (07/14/16 2:30 PM) Ketones - CRD [Negative] Negative (07/14/16 2:30 PM) Protein, Urine - CRD Negative [Negative] (07/14/16 2:30 PM) Nitrite, Urine - CRD Negative [Negative] (07/14/16 2:30 PM) Urobilinogen - CRD [<2.0 <2.0 mg/dL mg/dL] (07/14/16 2:30 PM) Leukocyte Esterase - CRD Trace [Negative] *ABN* (07/14/16 2:30 PM) WBC, Urine - CRD [0-5] 0-5 (07/14/16 2:30 PM) RBC, Urine - CRD [0-2] 0-2 (07/14/16 2:30 PM) Mucus - CRD Few (07/14/16 2:30 PM) eGFR, Enzymatic - CRD >60 5 >60 6 >60 7 (07/24/16 6:15 AM) (07/23/16 5:35 AM) (07/17/16 5:4 0 AM) Culture, Urine - CRD SEE BELOW Patient: DEVAUGHN GURROLA : 1935 Age: 80 Se x: F Location: [facility]-- Ordered by: MANPREET JEFFERS MICROBIOLOGY Source: Urine - Collected: 07/14/16 14:30 Order#: [id number] Received : 07/14/16 18:20 Urine Culture FINAL 07/16/16 10:08 07/15/16 1,000 to 5,000 cfu/ml mixed skin/mucos al romaine, none predominant. 1,000 to 5,000 cfu/ml Gram negative nathaniel, no further evaluation. (07/14/16 2:30 PM) Estimated Creatinine 31.20 mL/min 31.20 mL/min 31.20 mL/mi n Clearance (07/28/16 5:17 AM) (07/24/16 8:37 AM) (07/23/16 7:1 5 AM) Creatinine Level 0.65 mg/dL 0.65 mg/dL 0.78 mg/dL (07/24/16 6:15 AM) (07/23/16 5:35 AM) (07/17/16 5:4 0 AM) Sodium - CRD [136-145 140 mmol/L 141 mmol/L 141 mmol/L mmol/L] (07/24/16 6:15 AM) (07/23/16 5:35 AM) (07/17/16 5:4 0 AM) Potassium - CRD [3.5-5.1 3.9 mmol/L 3.8 mmol/L 4.4 mmo l/L 1 mmol/L] (07/24/16 6:15 AM) (07/23/16 5:35 AM) (07/17/16 5:4 0 AM) Chloride - CRD [98-107 104 mmol/L 104 mmol/L 103 mmol/ L mmol/L] (07/24/16 6:15 AM) (07/23/16 5:35 AM) (07/17/16 5:4 0 AM) Carbon Dioxide - CRD 27 mmol/L 30 mmol/L 26 mmol/L [21-32 mmol/L] (07/24/16 6:15 AM) (07/23/16 5:35 AM) (07/17/16 5:4 0 AM) BUN - CRD [7-22 mg/dL] 20 mg/dL 16 mg/dL 24 mg/dL (07/24/16 6:15 AM) (07/23/16 5:35 AM) *HI* (07/17/16 5:40 AM ) BUN/Creat Ratio - CRD 30.8 24.6 30.8 (07/24/16 6:15 AM) (07/23/16 5:35 AM) (07/17/16 5:4 0 AM) Creatinine, Enzymatic - 0.65 mg/dL 0.65 mg/dL 0.78 mg/ dL CRD [0.51-0.95 mg/dL] (07/24/16 6:15 AM) (07/23/16 5:35 AM) ( 5:40 AM) Glucose - CRD [74-106 75 mg/dL 2 84 mg/dL 3 84 mg/dL 4 mg/dL] (07/24/16 6:15 AM) (07/23/16 5:35 AM) (07/17/16 5:4 0 AM) Calcium - CRD [8.5-10.1 8.6 mg/dL 8.8 mg/dL 8.9 mg/d L mg/dL] (07/24/16 6:15 AM) (07/23/16 5:35 AM) (07/17/16 5:4 0 AM) Alkaline Phosphatase - CRD 166 unit/L 159 unit/L 141 u nit/L [45-117 unit/L] *HI* *HI* *HI* (07/24/16 6:15 AM) (07/23/16 5:35 AM) (07/17/16 5:4 0 AM) ALT - CRD [12-78 unit/L] 27 unit/L 25 unit/L 34 unit /L (07/24/16 6:15 AM) (07/23/16 5:35 AM) (07/17/16 5:4 0 AM) AST - CRD [0-37 unit/L] 23 unit/L 25 unit/L 40 unit/ L (07/24/16 6:15 AM) (07/23/16 5:35 AM) *HI* (07/17/16 5:40 AM ) Bilirubin, Total - CRD 0.5 mg/dL 0.6 mg/dL 0.7 mg/dL [0.2-1.0 mg/dL] (07/24/16 6:15 AM) (07/23/16 5:35 AM) (07/17/16 5:4 0 AM) Total Protein - CRD 4.8 G/DL 4.8 G/DL 5.3 G/DL [6.4-8.2 G/DL] *LOW* *LOW* *LOW* (07/24/16 6:15 AM) (07/23/16 5:35 AM) (07/17/16 5:4 0 AM) Albumin - CRD [3.4-5.0 2.6 G/DL 2.6 G/DL 2.8 G/DL G/DL] *LOW* *LOW* *LOW* (07/24/16 6:15 AM) (07/23/16 5:35 AM) (07/17/16 5:4 0 AM) Globulin - CRD 2.2 G/DL 2.2 G/DL 2.5 G/DL (07/24/16 6:15 AM) (07/23/16 5:35 AM) (07/17/16 5:4 0 AM) Albumin/Globulin Ratio - 1.2 1.2 1.1 CRD (07/24/16 6:15 AM) (07/23/16 5:35 AM) (07/17/16 5:4 0 AM) Anion Gap - CRD [4.0-12.0] 9.0 7.0 12.0 (07/24/16 6:15 AM) (07/23/16 5:35 AM) (07/17/16 5:4 0 AM) 1Result Comment: Slightly [id number] Comment: Impaired fasting glucose: 100-125 mg/dL Adult DM: Fasting glucose: >=126 mg/dL Random glucose: >=200 mg/[id number] Comment: Impaired fasting glucose: 100-125 mg/dL Adult DM: Fasting glucose: >=126 mg/dL Random glucose: >=200 mg/[id number] Comment: Impaired fasting glucose: 100-125 mg/dL Adult DM: Fasting glucose: >=126 mg/dL Random glucose: >=200 mg/[id number] Comment: Reference range: >60 mL/min/1.73m2 Any value below 60 is considered abnormal and is a strong indicator of a stage of Chronic Kidney Disease. Calculation assumes steady state. Calculated result is dependent upon accurate patient demographics.6Result Comment: Reference range: >60 mL/min/1.73m2 Any value below 60 is considered abnormal and is a strong indicator of a stage of Chronic Kidney Disease. Calculation assumes steady state. Calculated result is dependent upon accurate patient demographics.7Result Comment: Reference range: >60 mL/min/1.73m2 Any value below 60 is considered abnormal and is a strong indicator of a stage of Chronic Kidney Disease. Calculation assumes steady state. Calculated result is dependent upon accurate patient demographics. Immunizations No data available for this section Procedures No data available for this section Social History No data available for this section Assessment and Plan No data available for this section
--- OUTSIDE RECORDS SUMMARY | 2022-04-03 12:30 | XMS_ITS | Encounter Summary ---
:1935 Author Organization [facility] [place] [address] Care Team Providers Name Role Phone Nereida Barnett MD Primary Care Provider Encounter Details Date Type Department Care Team Description 03/30/2022 Travel Social History Tobacco Use Types Packs/Day Years [...] PM EDT documented as of this encounter Plan of Treatment Upcoming Encounters Date Type Specialty Care Team Description 04/06/2022 Appointment Pulmonology 04/06/2022 Office Visit Pulmonology Matt Watson MD [facility] [place] [address] (Wo rk) documented as of this encounter Visit Diagnoses Not on filedocumented in this encounter Care Teams Missile [employer] Preflight Relationship Specialty Start Date End Date Nereida Barnett MD PCP - General Family Medicine 06/19/[address] [place] [address] documented as of this encounter
--- OUTSIDE RECORDS SUMMARY | 2022-04-03 12:30 | XMS_ITS | Encounter Summary ---
:1935 Author Organization [facility] [place] [address] Care Team Providers Name Role Phone Nereida Barnett MD Primary Care Provider [phone] Encounter Details Date Type Department Care Team Description 04/03/2022 Office Visit Hematology/Oncology Thuan Feliciano MD [facility] [place] [address] Breast cancer, stage at [facility], Liliana Rivas CLAMMER [address] [place] [address] [place] [address] 1, right [address] [place] [phone] Social History Tobacco Use Types Packs/Day Years [...] Sign Reading Time Taken Comments Blood Pressure 161/66 04/03/2022 10:50 AM EDT Pulse 84 04/03/2022 10:41 AM EDT Temperature 36.6 ??C (97.9 ??F) 04/03/2022 10:41 AM EDT Respiratory Rate 24 04/03/2022 10:41 AM EDT Oxygen Saturation 98% 04/03/2022 10:41 AM EDT Inhaled Oxygen Concentration - - Weight 81.2 kg (179 lb) 04/03/2022 10:41 AM EDT Height 146.7 cm (4' 9.75) 04/03/2022 10:41 AM rechecke d today EDT Body Mass Index 37.74 04/03/2022 10:41 AM EDT documented in this encounter Plan of Treatment Upcoming Encounters Date Type Specialty Care Team Description 04/06/2022 Appointment Pulmonology 04/06/2022 Office Visit Pulmonology Matt Watson MD [facility] [place], [place] [address] (Wo rk) Scheduled Orders Name Type Priority Associated Diagnoses Order S chedule Comprehensive metabolic Lab Routine Breast cancer, st age 1, Expected: 04/03/2022 panel (non-fasting) right (Approxi mate), Expires: 2022 documented as of this encounter Visit Diagnoses Diagnosis Breast cancer, stage 1, right documented in this encounter Care Teams Cloth Hauler Relationship Specialty Start Date End Date Nereida Barnett MD PCP - General Family Medicine 06/19/[address] [place] [address] documented as of this encounter
--- OUTSIDE RECORDS SUMMARY | 2022-04-03 12:30 | XMS_ITS | Encounter Summary ---
:1935 Author Organization [facility] [place] [address] Care Team Providers Name Role Phone Nereida Barnett MD Primary Care Provider [phone] Encounter Details Date Type Department Care Team Description 04/03/2022 Travel Social History Tobacco Use Types Packs/Day [...] Visit Pulmonology Matt Watson MD [facility] [place]ARY [place] [address] (Wo rk) documented as of this encounter Visit Diagnoses Not on filedocumented in this encounter Care Teams Budget Director Relationship Specialty Start Date End Date Nereida Barnett MD PCP - General Family Medicine 06/19/[address] [place] [address] documented as of this encounter
--- OUTSIDE RECORDS SUMMARY | 2022-04-03 12:30 | XMS_ITS | Encounter Summary ---
:1935 Author Organization [facility] Address [address] [place] [address] Care Team Providers Name Role Phone Niki Purdy MD Primary Care Provider Encounter Details Date Type Department Care Team Description 12/15/2010 Results Only [facility]- Fabi Thao MD [phone] [address] [place], [place] [address] (Wo rk) Social History Tobacco Use Types Packs/Day Years Used Date Never Assessed Sex Assigned at Date Recorded Not on file documented as of this encounter Plan of Treatment Not on filedocumented as of this encounter Procedures Procedure Name Priority Date/Time Associated Diagnosis Comme nts SURGICAL PATHOLOGY Routine 12/15/2010 0:00 EDT Re sults for this procedure are i n the results section. documented in this encounter Results SURGICAL PATHOLOGY (12/15/2010 0:00 EDT) Pathology Report: SURGICAL PATHOLOGY REPORT ? LYDIA EMERSON Reports generated via [employer] interface contain original data; ? LAB however they are lacking the format of the original report. ? Caution should be taken when reading/interpreting unformatted reports. ? Name: ? DEVAUGHN GURROLA ? Accession #: ? [id number] ? : ? 1935 (Age: 75) ??F ? Collec t Date: ? 12/15/2010 ? Location: ? [facility] ? Re ceive Date: ? 12/16/2010 ? Provider: FBAICURRY LEZAMA MD ? Copy to: ? Final Pathologic Diagnosis: ? Skin of face, left, e xcision: ? 1. Follicular cyst, infundib ular type, with evidence of rupture. ? - Follicular cy st focally extends to peripheral margin of excision ? specimen. ? Document reviewed and electr onically signed by: ? CALLIE Hudson SABA MD ? Report ??Date: 12/18/2010 16 :46 ? By the signature above, the attending physician certifies that he/she has ? personally conducted a gross and/or microscopic examination of the described ? specimens and rendered or co nfirmed the above diagnosis. ? Specimen(s) Received: ? Left face lesion ? Clinical History: ? Clinical diagnosis co de: 706.2 ? Gross Description: ? Received in formalin labelled Wiggett, Devaughn and left face lesion/cyst is an unoriented elliptical exc ision of rojo-white skin measuring 1.8 x 0.8 cm and ?? is excised to a depth of 1.0 cm. ??There is a central 0.5 x 0.4 x 0.1 cm ? irregular, rojo-white papule. ??The margins are inked. ??The specimen is serially ?? sectioned and entirely submi tted as (A1) and (A2) central sections and (A3) ? tips, reverse en face. ??(Shania Calderon)/erin ? End of Report ? Specimen Performing Organization Address City/State/ZIP Code Phon e Number [facility] [address] [place] [address] SERVICES [facility] [address] [place] [address] documented in this encounter Visit Diagnoses Not on filedocumented in this encounter Care Teams Editor School Photograph Relationship Specialty Start Date End Date Niki Purdy MD PCP - General 10/20/[address] [place] [id number] documented as of this encounter
--- OUTSIDE RECORDS SUMMARY | 2022-04-03 12:30 | XMS_ITS | Continuity of Care Document ---
:1935 Author Organization [facility] Address [address] [place] [address] Encounter [facility] NBR [id number] Date(s): 03/19/22 - 03/19/22 [facility] [address] [place] [address]- us Discharge Disposition: Home or Self Care Assessment and Plan Future AppointmentsAppointment Date:03/19/2022 01:30:00 PM Scheduled Provider: Location:[facility]- Appointment Type:COVID-BSTR
--- OUTSIDE RECORDS SUMMARY | 2022-04-03 12:30 | XMS_ITS | Clinical Summary ---
:1935 Author Organization [facility] [place] [address] Care Team Providers Name Role Phone Nereida Barnett MD Primary Care Provider [phone] Allergies Active Allergy Reactions Severity Noted Date Comments Celecoxib Other (See Comments) 03/21/2013 Hypoten wilner, tachycardia per patient Amlodipine Other (See Comments) 11/15/2012 Causes edema to lower extremities Medications Medication Sig Dispensed Refills Start Date End Date Status CALCIUM 0 02/25/2010 Active CARBONATE/VITAMIN D3 (CALCIUM 600 WITH VITAMIN D3 ORAL) multivitamin 0 02/25/2010 Active (THERAGRAN) tablet atorvastatin (LIPITOR) Take 1 tablet by 30 tablet 3 04/26/2015 Active 80 mg Tablet mouth every evening. nitroGLYcerin Place 1 tablet 90 tablet 12 04/26/2015 Active (NITROSTAT) 0.4 mg under the tongue Tablet, Sublingual every 5 minutes as needed for Chest pain. Additional Information Patient not taking. Reported on 02/09/2022 acetaminophen (TYLENOL) 500 mg Take 650 mg by 0 Active Tablet mouth every 6 hours as needed for Pain. lisinopril (PRINIVIL;ZESTRIL) 20 Take 20 mg by mouth 0 Active mg Tablet 2 times daily. hydroCHLOROthiazide (HYDRODIURIL) Take 25 mg by mouth 0 Active 25 mg Tablet daily. meTOPROLOL succinate (TOPROL-XL) Take 1 tablet by 30 tablet 12 06/05/2016 Active 50 mg Tablet Sustained Release 24 mouth daily. hr Eliquis 5 mg Tablet Take 5 mg by mouth 0 03/30/2021 Active 2 times daily. 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 Breast cancer 12/21/2012 Encounters Date Type Specialty Care Team Description 04/03/2022 Office Visit Hematology Yao Hammonds Breast can cer, stage Oncology MD Marisela 1, right Liliana Lee APRN 04/03/2022 Travel 03/30/2022 Travel 02/09/2022 Office Visit Hematology and Matias Salmeron, History of ITP; Oncology MD Secondary polycythemia Norma Salinas, ROVERTO Gu, Glenn Kent MD 02/09/2022 Hospital Encounter Radiology Matias Salmeron, Lung no rena BOOTH 02/09/2022 Hospital Encounter Hematology and Erythro cytosis; Oncology History of ITP 01/13/2022 Telephone Yao Urbano Oncology MD Marisela 01/09/2022 Orders Only General Surgery Courtney Dill MD 01/08/2022 Telephone Pulmonology Xochitl Lainez 01/08/2022 Orders Only Pulmonology Matt Watson (dyspne a on I, MD exertion) (Prim maegan Dx) 01/08/2022 Telephone Pulmonology Yajaira Danielle 01/08/2022 Orders Only General Surgery Courtney Dill Cancer o f central portion of left breast; MD Luli Encounter for s creening mammogram for malignant neoplasm of breast 01/08/2022 Orders Only General Surgery Courtney Dill Cancer hannah Rockwell MD portion of left breast 01/07/2022 Office Visit General Surgery Courtney Dill MD portion of left breast from Last 3 Months Family History Medical History Relation Comments Breast Cancer Cousin Breast Cancer Maternal Aunt Breast Cancer Paternal Aunt Relation Status Comments Cousin Maternal Aunt Paternal Aunt Social History Tobacco Use Types Packs/Day Years [...] Date Recorded Female 10/29/2021 2:50 PM EDT Last Filed Vital Signs Vital Sign Reading [...] Mass Index 37.74 04/03/2022 10:41 AM EDT Plan of Treatment Upcoming Encounters Date Type Specialty Care Team Description 04/06/2022 Appointment Pulmonology 04/06/2022 Office Visit Pulmonology Matt Watson MD [facility] PUL[facility] [place], [place] [address] (Wo rk) Health Maintenance Due Date Last Done Comments Covid-19 Vaccine (#1) 05/25/1936 Pneumoccocal Vaccine: 65+ (1 - PCV) 1942 Tdap adult 11/24/1955 Tetanus vaccine 11/24/1955 Zoster vaccine (1 of 2) 1986 Bone Density Scan 2001 Influenza (Flu) vaccine (1 of 1 - Influenza standard 01/29/2022 series) Medical Devices Implanted Type Area Director Business Device Shelf Model / Identifier Expiration Date Ser ial / Lot Mdt : [id number] : [id number]/5/2017 Pacemaker Chest [employer] [id number] / Implanted: 06/04/2016 by Bismark Wade MD (Quantity not on file) [id number] / Procedures Procedure Name Priority Date/Time Associated Comments Diagnosis LAB SCAN 04/03/2022 12:00 Results for this AM EDT procedure are i n the results section. CT CHEST WO CONTRAST Routine 02/09/2022 10:57 Lung nodule Res ults for this (GENERIC) AM EDT procedure are i n the results section. DIFFERENTIAL, STAT 02/09/2022 9:54 AM Erythrocytosi s Results for this AUTOMATED EDT History of ITP procedure are in the results section. HEMOGRAM STAT 02/09/2022 9:54 AM Erythrocytosi s Results for this EDT History of ITP procedure are in the results section. COMPREHENSIVE STAT 02/09/2022 9:54 AM Erythrocytosi s Results for this METABOLIC PANEL EDT History of ITP procedure are in (NON-FASTING) the results section. HC VENIPUNCTURE STAT 02/09/2022 9:54 AM Erythrocytosi s EDT History of ITP from Last 3 Months Results SCAN DOC: LAB (04/03/2022 12:00 AM EDT) Narrative 04/03/2022 12:00 AM EDT This result has an attachment that is no t available. Ordered by an unspecified provider. Scanning Provider MEDIA MGR SCAN EXT ORDR/RSLT CT Chest wo Contrast (Generic) (02/09/2022 10:57 AM EDT) Anatomical Region Laterality Modality Chest Computed Tomography Specimen (Source) Anatomical Collection Method Collection Time Re ceived Time Location / / Volume Laterality 02/09/2022 11:14 AM EDT Impressions 02/09/2022 2:42 PM EDT 1. ??Stable 10 mm right apical nodule. 2. ??Stable 6 mm cavitary lesion at the lateral posterior right upper lobe. 3. ??Attention at follow-up suggested to ensure stability. 4. ??No new pulmonary nodules or masses. 5. ??Stable soft tissue and peripherally calcified nodule in the right breast. 6. ??Cardiomegaly. Moderate to severe na tive coronary artery calcification. Thank you for letting us participate in the care of this patient. ??If you are a health care provider and have any questi ons regarding this report, please contact the number below. ??For patients who have questions please contact the health caregiver assisted living that requested your imaging first. ? Narrative 02/09/2022 2:42 PM EDT EXAMINATION: CT CHEST WO CONTRAST (GENERIC) CLINICAL HISTORY: Lung nodule, 6-8mm, fo llow up exam Lung nodule, 6-8mm, follow up exam TECHNIQUE: 3 mm thick axial contiguous s ections were obtained through the chest via helical acquisition without intraven ous contrast administration. Thin-section reconstructions as well as coronal and sagittal reformatted images were generated. COMPARISON: June 16, 2021 FINDINGS: Pulmonary parenchyma: Stable 10 mm right apical nodule. Stable 6 mm cavitary lesion at the lateral posterior right up per lobe. No new nodules nor masses. Stable right upper lobe scarring/atelect asis. Airways: Stable bronchial wall thickenin g. Pleura: No pleural effusion Lymph nodes: No pathologically enlarged lymph nodes. Stable subcentimeter paratracheal lymph nodes Heart, pericardium, and great vessels: C ardiomegaly. Pacemaker leads in the right atrium and right ventricle. Modera te to severe creek coronary artery calcification. No pericardial effusion. Moderately calcified atherosclerotic disease about the thoracic aorta. Other mediastinal structures: No signifi cant findings. Lower neck: No significant findings. Upper abdomen: No significant findings. Body wall soft tissues: Stable trapezoid shaped asymmetric right breast soft tissue and peripherally calcified right breast nodule. Skeletal structures: No suspicious lytic expansile nor sclerotic osseous lesions. Stable degenerative T12 juan wilner deformity. Stable sclerotic focus likely bone island at T5. Procedure Note Danielle Lamar MD - 02/09/2022 EXAMINATION: CT CHEST WO CONTRAST (GENER IC) CLINICAL HISTORY: Lung nodule, 6-8mm, fo llow up exam Lung nodule, 6-8mm, follow up exam TECHNIQUE: 3 mm thick axial contiguous s ections were obtained through the chest via helical acquisition without intraven ous contrast administration. Thin-section reconstructions as well as coronal and sagittal reformatted images were generated. COMPARISON: June 16, 2021 FINDINGS: Pulmonary parenchyma: Stable 10 mm right apical nodule. Stable 6 mm cavitary lesion at the lateral posterior right up per lobe. No new nodules nor masses. Stable right upper lobe scarring/atelect asis. Airways: Stable bronchial wall thickenin g. Pleura: No pleural effusion Lymph nodes: No pathologically enlarged lymph nodes. Stable subcentimeter paratracheal lymph nodes Heart, pericardium, and great vessels: C ardiomegaly. Pacemaker leads in the right atrium and right ventricle. Modera te to severe creek coronary artery calcification. No pericardial effusion. Moderately calcified atherosclerotic disease about the thoracic aorta. Other mediastinal structures: No signifi cant findings. Lower neck: No significant findings. Upper abdomen: No significant findings. Body wall soft tissues: Stable trapezoid shaped asymmetric right breast soft tissue and peripherally calcified right breast nodule. Skeletal structures: No suspicious lytic expansile nor sclerotic osseous lesions. Stable degenerative T12 juan wilner deformity. Stable sclerotic focus likely bone island at T5. IMPRESSION 1. Stable 10 mm right apical nodule. 2. Stable 6 mm cavitary lesion at the la teral posterior right upper lobe. 3. Attention at follow-up suggested to e nsure stability. 4. No new pulmonary nodules or masses. 5. Stable soft tissue and peripherally c alcified nodule in the right breast. 6. Cardiomegaly. Moderate to severe mark ve coronary artery calcification. Thank you for letting us participate in the care of this patient. If you are a health care provider and have any questi ons regarding this report, please contact the number below. For patients w ho have questions please contact the health caregiver assisted living that requested your imaging first. Matias Salmeron MD IMG CT ORDERABLES (ABNORMAL) Hemogram (02/09/2022 9:54 AM EDT) Analysis Performed At Patho logist Time Signature WBC 9.2 4.0 - 9.5 [facility] x10(3)/[facility] LABORATORY RBC 5.30 (H) 4.00 - [facility] 5.21 [facility] x10(6)/[facility] LABORATORY Hemoglobin 15.7 (H) 11.7 - [facility] 15.5 g/dL [facility] Hematocrit 50.1 (H) 35.7 - [facility] 45.8 % [facility] LABORATORY MCV 94.5 (H) 82.6 - [facility] 94.4 [facility] LABORATORY MCH 29.6 27.1 - [facility] 32.[facility] pg [facility] LABORATORY MCHC 31.3 (L) 31.7 - [facility] 35.0 g/dL [facility] LABORATORY Platelets 135 (L) 145 - 357 [facility] x10(3)/[facility] LABORATORY RDWSD 44.4 37.0 - [facility] 46.0 [facility] RDWCV 12.7 11.5 - [facility] 14.1 % [facility] LABORATORY MPV 11.0 7.6 - 12.9 [facility] LABORATORY nRBC % Auto 0.0 % [facility] LABORATORY nRBC Abs Auto 0.000 0.000 - [facility] 0.000 [facility] x10(3)[facility] LABORATORY Specimen Anatomical Collection Method Collection Time Receive d Time (Source) Location / / Volume Laterality Blood 02/09/2022 9:54 AM EDT 10:15 AM EDT Resulting Agency Comment Spec In Lab Matias Salmeron MD HEMATOLOGY ORDERABLES Performing Organization Address City/State/[place] [address] (ABNORMAL) Differential, Automated (02/09/2022 9:54 AM EDT) [facility] gist Method Time Signature Neutrophils % 72.4 % [facility] LABORATORY Neutr Abs (ANC) 6.63 (H) 1.70 - [facility] 6.10 [facility] x10(3)/[facility] L LABORATORY Lymphocytes % 17.4 % [facility] LABORATORY Lymphocytes Abs 1.6 0.9 - 3.2 [facility] x10(3)/[facility] LABORATORY Monocytes % 7.9 % [facility] LABORATORY Monocyte Abs 0.7 0.3 - 0.9 [facility] x10(3)/[facility] LABORATORY Eosinophils % 1.5 % [facility] LABORATORY Eosinophils Abs 0.1 0.0 - 0.4 [facility] x10(3)/[facility] LABORATORY Basophils % 0.5 % [facility] LABORATORY Basophils Abs 0.0 0.0 - 0.1 [facility] x10(3)/[facility] LABORATORY Immature Gran % 0.30 % [facility] LABORATORY Comment: Immature granulocytes(IG's)percentage an d absolute count will include metamyelocytes, myelocytes, and promyelo cytes. Blood smears from CBCs yielding IG's will be scanned manually for concor dance. If this scan disagrees with the automated IG or if promyelocytes are not ed, a manual differential will be performed. Елена Gran Abs 0.03 0.00 - 0.04 x10(3)/[facility] LABORATORY Specimen Anatomical Collection Method Collection Time Receive d Time (Source) Location / / Volume Laterality Blood 02/09/2022 9:54 AM EDT 10:15 AM EDT Resulting Agency Comment Spec In Lab Matias Salmeron MD HEMATOLOGY ORDERABLES Performing Organization Address City/State/[place] [address] (ABNORMAL) Comprehensive metabolic panel (non-fasting) (02/09/2022 9:54 AM EDT) P athologist Signature Glucose Lvl 114 65 - 199 [facility] mg/dL [facility] LABORATORY Comment: Diabetes: >=200 mg/dL plus symp toms BUN 20 (H) 8 - 18 mg/dL [facility] LABORATORY Creatinine 1.04 0.70 - 1.20 mg/dL [facility] LABORATORY Sodium 140 135 - 145 mmol/L [facility] LABORATORY Potassium 3.7 3.5 - 5.0 mmol/L [facility] LABORATORY Comment: Please note: ??Patients with WBC >100,00 0 may have falsely elevated Potassium levels. ??For accurate Potassium quantif ication in these patients send serum separator tube (gold top) for subsequent determinations. ??Contact the Clinical Chemistry Laboratory if there are any qu estions. Chloride 103 98 - 107 mmol/L [facility] LABORATORY CO2 29 22 - 31 mmol/L [facility] LABORATORY Anion Gap 8 5 - 15 mmol/L [facility] LABORATORY Calcium 9.8 8.5 - 10.5 mg/dL [facility] LABORATORY Total Protein 6.2 6.1 - 8.0 g/dL [facility] LABORATORY Albumin 3.8 3.2 - 5.2 g/dL [facility] LABORATORY AST 25 0 - 30 unit/L [facility] LABORATORY ALT 17 0 - 30 unit/L [facility] LABOR[facility]ORY Alk Phos 88 35 - 105 unit/L [facility] LABORATORY Total Bilirubin 1.0 0.2 - 1.3 mg/dL [facility] LABORATORY Estimated GFR 53 (L) >=60 mL/min/1.73 m?? [facility] LAB[facility]ORY Comment: This patient's estimated GFR was calcula doreen using the 2020 CKD-EPI equation. The estimated GFR can vary from the del ured GFR by up to 30% in the absence of rapidly changing kidney function. Assess ment of the estimated GFR is not appropriate when creatinine concentratio ns are rapidly changing. For clinical situations in which a more precise estim ate of GFR is necessary, consider alternative methods of GFR estimation pisano ch as a 24-hour urine creatinine clearance. Assignment of CKD stage 1-5 for patients with an eGFR near the transition point between stages may be based on clinical assessment of muscle mass and symptoms in addition to eGFR. Specimen Anatomical Collection Method Collection Time Receive d Time (Source) Location / / Volume Laterality Blood 02/09/2022 9:54 AM 2 EDT 10:15 AM EDT Resulting Agency Comment Spec In Lab Matias Salmeron MD CHEMISTRY ORDERABLES Performing Organization Address City/State/ZIP [place] [address] from Last 3 Months Insurance Payer Benefit Plan / Subscriber ID Effective Phone Address T ype Group Dates MEDICARE MEDICARE PART A [id number] 2001-Emma [phone] [place] [address] AARP SUPPLEMENT AARP SUPPLEMENT [id number] 2011-[place] [address] [place] [address] Advance Directives Documents on File Type Date Recorded Patient Inward Toll Operator Explanati on Advance Directives and Living 01/05/2013 2:44 PM Will Latest Code Status on File Code Status Date Activated Date Inactivated Comments Full Code 06/04/2016 3:31 PM 06/05/2016 1:41 PM Does patient have capacity to make decision: Yes Full Code 06/04/2016 12:22 PM 06/04/2016 3:31 PM Does patient have capacity to make decision: Yes Full Code 04/23/2015 3:04 PM 04/26/2015 7:51 PM Does patient have capacity to make decision: Yes Care Teams Student Ministries Director Relationship Specialty Start Date End Date Nereida Barnett MD PCP - General Family Medicine 06/19/[address] [place] [address]
--- OUTSIDE RECORDS SUMMARY | 2022-04-03 12:31 | XMS_ITS | Encounter Summary ---
:1935 Author Organization [facility] [place] [address] Care Team Providers Name Role Phone RoMatt dejesus Martha KHAN Primary Care Provider Encounter Details Date Type Department Care Team Description 04/06/2019 Office Visit Hematology/Oncology Yao Feliciano Br east cancer, stage 1, right; at [facility] History of ITP [address] [place] [id number] ONCOLOGY [phone] [place], [place] [address] Social History Tobacco Use Types Packs/Day Years [...] Sign Reading Time Taken Comments Blood Pressure 159/78 04/06/2019 10:39 AM EST Pulse 83 04/06/2019 10:39 AM EST Temperature 36.5 ??C (97.7 ??F) 04/06/2019 10:39 AM EST Respiratory Rate 16 04/06/2019 10:39 AM EST Oxygen Saturation 99% 04/06/2019 10:39 AM EST Inhaled Oxygen Concentration - - Weight 85.1 kg (187 lb 9.6 oz) 04/06/2019 10:39 AM EST Height - - Body Mass Index 39.38 04/15/2018 1:12 PM EST documented in this encounter Progress Notes Yao Feliciano MD - 04/06/2019 10:30 AM EST Subjective: Patient ID: Barbara Casarez is a 83 y.o. female. Problem List: 1. Cancer of the right breast, [id number], stage IA, low grade, ER/ND positive, Her-2/veronica negative. A. Screening mammogram 11/15/12 [...] remainder of the Right breast is unremarkable. B. 12/05/12 - Needle bx of right breast lesion Pathologic Diagnosis--- Needle biopsies: Right breast Diagnosis: 1. 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 Bilateral breast MRI 12/09/12 SUMMARY: RIGHT BREAST LESION 1: KNOWN MALIGNANCY (BIRADS Category 6). Lesion type: Mass. Size: 9 x 4 x 4mm. Location: 1100, 8.1 (4.7)cm from the nipple (radial). Distance from skin: 38mm. Mass margins: Irregular. Mass shape: Lobulated. Enhancement pattern: Homogeneous. Kinetics: Plateau/washout. Recommendation: Definitive surgery. LEFT BREAST LESION 1: SUSPICIOUS (BIRADS Category [...] not be amenable to ultrasound guided biopsy/FNA. D. Staging CXR and LFTs unremarkable E. 01/05/13 - Excision of left breast lesion; Right partial mastectomy and SLN bx. 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 Tumor Size: 7 mm (papilloma size) Resection Margins (RM): Margin Status: Involved(Involved,Uninvolved) Distance, nearest RM(s): At the cauterized yellow RM (A3), adjacent to skin. See Comment Specimen (s): B - Right partial mastectomy C - Right axillary sentinel node Histologic Type: Invasive ductal carcinoma Tumor Grade: Low Hukspl-Suyhc-Zmmvamwlun Score: 5 Tubular Differentiation: 2 Mitotic Rate: 1 Nuclear Grade: 2 Tumor Size: 0.7 cm (maximum diameter) In Situ Histologic Type: Not identified (present in the core bx [id number]) Microcalcifications: Not identified Angiolymphatic Invasion: Not identified [...] 5 years in 03/2018 H. Bilateral mammogram 11/21/18 - CONCLUSION: No mammographic evidence of malignancy. ?? RECOMMENDATION: Routine annual screening. ?? BIRADS CATEGORY 2: BENIGN FINDINGS 2. ITP. A. Found to have low [...] weekly Rituxan, completed 4 doses on 11/02/14 3. ASCVD s/p PR with v fib arrest in 04/14 s/p [...] is no evidence of a pericardial effusion. 4. Atrial fibrillation 5. HTN 6. S/p left knee arthroscopy 12/10 for partially torn meniscus 7. Dexa scan 03/12 - osteopenia of L-spine and proximal femurs. 04/14 - osteoporosis 04/15 - osteopenia to osteoporosis in L-spine and proximal femurs. 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 Clayton to be related to rituxan. Given lack of frequent infections, no intervention recommended. 9. 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 Left hip fracture 07/2016, s/p ORIF after she fell on the stairs 11. S/p JIN/BSO HPI Ms. Casarez returns in f/u of breast cancer and ITP. The breast cancer was found by routine screening mammogram. Details of the evaluation are noted above. She underwent a partial mastectomy on 01/05/13. The pathology is noted above. We met and discussed adjuvant systemic therapy. Chemotherapy was not recommended. She completed a course a course of adjuvant radiation therapy on 03/31/13. In 04/12, she began femara, 2.5 mg per day. She also has a h/o ITP. Labs checked on 11/15/13 showed that the platelet count had decreased to 36,000. She had been feeling well, no new medications. She was treated with a 4 day course of high dose steroids, dexamethasone at 40 mg per day. The platelets have responded to this but she has required repeated courses of therapy, history summarized below. Due to the recurrent nature of this, the decision was made to give a course of rituxan which she started on 10/12/14. She completed 4 weekly doses on 11/02/14. On presentation today, she is feeling pretty well. Her appetite is good and her weight is stable. She thinks she has some neuropathy in her feet. She broke her wrist this summer which occurred when shepushed on her tailgate. still has some discomfort in the left hip but no new or worsening areas of pain. She has some knee pain related to OA which is about the same. Overall, no particular concerns today. Review of Systems Constitutional: Negative. HENT: Negative. Eyes: Negative. Respiratory: Negative. Cardiovascular: Negative. Gastrointestinal: Negative. Genitourinary: Negative. Musculoskeletal: Positive for arthralgias. Skin: Negative. Neurological: Negative. Psychiatric/Behavioral: Negative. Objective: Physical Exam Constitutional: She is oriented to person, place, and time. She appears well- developed and well-nourished. No distress. HENT: Head: Normocephalic and atraumatic. Mouth/Throat: Oropharynx is clear and moist. No oropharyngeal exudate. Eyes: No scleral icterus. Cardiovascular: Normal rate and regular rhythm. Pulmonary/Chest: Effort normal. No respiratory distress. She has no wheezes. She has no rales. Abdominal: She exhibits no distension and no mass. There is no tenderness. There is no guarding. Genitourinary: Genitourinary Comments: Breast exam - no skin dimpling or puckering and no discrete masses in eitherbreast. Musculoskeletal: She exhibits no edema. Lymphadenopathy: She has no cervical adenopathy. She has no axillary adenopathy. Right: No supraclavicular adenopathy present. Left: No supraclavicular adenopathy present. Neurological: She is alert and oriented to person, place, and time. Coordination normal. Skin: Skin is warm and dry. No rash noted. Psychiatric: She has a normal mood and affect. Her behavior is normal. Vitals reviewed. Labs: WBC/ANC - 8.10/5699, Hgb/Hct - 15/46.2, Plts -141,000. BUN/Cr - 19/0.77. K 3.4. Lytes and LFTs o/w unremarkable Date Plts 04/05/19 141 04/11/18 152 12/08/17 155 /8 112 04/14/17 149 01/14/17 188 10/01/16 179 04/16/16 124 02/20/16 97 11/21/15 118 10/10/15 108 08/16/15 131 07/18/15 134 07/04/15 89 06/06/15 115 05/10/15 130 03/28/15 98k 03/01/15 92k 01/31/15 100k 01/03/14 118k 12/20/14 102k 12/06/14 120k 11/22/14 111k 11/01/14 116k - completed rituxan 10/25/14 58k 10/18/14 92k 10/11/14 114k - started weekly rituxan 09/24/14 92k 09/18/14 54k 09/11/14 38k - decadron, 40 mg/day x 4 days 08/13/14 54k 07/30/14 64k 07/16/14 67k 07/02/14 59k 06/18/14 128k 06/04/14 213k 05/15/14 26k - decadron, 40 mg/day x 4 days 04/18/14 51k 03/20/14 52k 02/26/14 62k 02/20/14 50k 12/07/13 86k 11/23/13 85k 11/13/13 36k - decadron, 40 mg/day x 4 days Assessment and Plan: 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 She was diagnosed in 2012 with cancer of the right breast, pT1bN0. She underwent a partial mastectomy on 01/05/13. We talked about adjuvant systemic therapy when I saw her in 02/10. Chemotherapy was not recommended. The plan was adjuvant radiation, followed by hormonal therapy with an aromatase inhibitor. She completed radiation therapy on 03/31/13. In early 04/12, she began femara, 2.5 mg per day. She completed 5 years of therapy in 03/2018. The mammogram done in 11/16 showed no evidence of malignancy. For osteoporosis, she is taking calcium with vitamin D. She will receive reclast today, 04/06/19. Thevitamin D level in 03/2018 was 41.9. She also has ITP. The platelet count from 11/15/13 had dropped to 36K. She was given a short course of high dose dex at 40 mg per day for 4 days. The platelet count improved to 85K. In 05/13, the platelets decreased to 26k. She was retreated with the same dex dose. She again had a response. In 09/12, the platelets dropped to 38k and dex was repeated. The platelets again responded. She then received a course of weekly rituxan and she began this on 10/12/14. She tolerated this well and completed 4 doses on 11/02/14. The platelet count has increased overall and, allowing for some fluctuation, has been stable since then. I will plan to see her in six months with a cbc and mammogram and will plan to give reclast then andchange her appts to annual if she is doing well. documented in this encounter Plan of Treatment Upcoming Encounters Date Type Specialty Care Team Description 04/06/2022 Appointment Pulmonology 04/06/2022 Office Visit Pulmonology Matt Watson MD [facility] PULMONARY [place], [place] [address] (Wo rk) documented as of this encounter Results Mammo Screening Cad and Matias Bilateral (11/02/2019 10:13 AM EDT) Anatomical Region Laterality Modality Breast Bilateral Mammography Specimen (Source) Anatomical Location Collection Method / Collectio n Time Received Time / Laterality Volume Narrative 11/02/2019 10:18 AM EDT BILATERAL MAMMOGRAPHY REASON FOR EXAM: h/o right breast cancer s/p lumpectomy and radiatoin. ??Annual exam TECHNIQUE: CC and MLO views were obtaine d of each breast using standard 2-D mammography as well as 3-D tomosynthesis . Computer aided detection was used. Comparison: This is compared with prior images. FINDINGS: There are scattered areas of f ibroglandular density. There are no suspicious microcalcifications, masses, or areas of distortion. The pattern is stable. Stable benign-appearing right br east fat necrosis, and stable postsurgical change. Stable benign-appea ring right breast intramammary lymph nodes. CONCLUSION: No mammographic evidence of malignancy. RECOMMENDATION: Routine screening. A result letter has been sent to this pa jammie by [facility]. BIRADS CATEGORY 2: Benign findings. * ??Regular screening mammograms startin g between age 40 and 50 reduces the risk of from breast cancer. * ??All screening tests have both risks and benefits. These risks and benefits should be assessed for each individual p atient through discussion with their provider to determine their preferred br east cancer screening schedule. * ??Women should report any breast lo es to a health care provider right away. * ??Some women, because of their family history, a genetic tendency, or other factors, should be screened with annual breast MRI as well as with mammograms. (The number of women who fall into this category is very small). Patients and health care providers should discuss eac h patients history to decide if earlier screening and/or breast MRI are appropri ate. * ??Screening should continue as long as a woman is in good health and is expected to live 10 years or longer. * ??Screening mammography may not detect 10-15% of breast cancers. Thank you for letting us participate in the care of this patient. For questions regarding this report, please contact e number below. ? Yao Feliciano MD IMG MAMMO ORDERABLES documented in this encounter Visit Diagnoses Diagnosis Breast cancer, stage 1, right History of ITP Personal history of diseases of blood an d blood-forming organs Breast cancer, stage 1, right documented in this encounter Care Teams Career Development Coordinator/Teacher Relationship Specialty Start Date End Date Matt Mcdonnell DO PCP - General 11/15/12 11/29/19 [address] [place] [address] documented as of this encounter
--- OUTSIDE RECORDS SUMMARY | 2022-04-03 12:31 | XMS_ITS | Encounter Summary ---
:1935 Author Organization [facility] [place] [address] Care Team Providers Name Role Phone Matt Mcdonnell DO Primary Care Provider Encounter Details Date Type Department Care Team Description 11/21/2018 Hospital Encounter Mammography/DXA at Matt Mcdonnell Encounter for [facility] T, DO screening mammogram [address] [place] [phone] Social History Tobacco Use Types Packs/Day Years [...] PM EDT documented as of this encounter Medications at Time of Discharge Medication Sig Dispensed Refills Start Date End Date meTOPROLOL succinate Take 1 tablet by 30 tablet 12 7 (TOPROL-XL) 50 mg Tablet mouth daily. Sustained Release 24 hr acetaminophen (TYLENOL) 500 Take 650 mg by 0 mg Tablet mouth every 6 hours as needed for Pain. lisinopril (PRINIVIL;ZESTRIL) Take 20 mg by 0 20 mg Tablet mouth 2 times daily. hydroCHLOROthiazide Take 25 mg by 0 (HYDRODIURIL) 25 mg Tablet mouth daily. atorvastatin (LIPITOR) 80 mg Take 1 tablet by 30 tablet 3 1 06/26/2014 Tablet mouth every evening. nitroGLYcerin (NITROSTAT) 0.4 Place 1 tablet 90 tablet 12 mg Tablet, Sublingual under the tongue every 5 minutes as needed for Chest pain. CALCIUM CARBONATE/VITAMIN D3 0 010 (CALCIUM 600 WITH VITAMIN D3 ORAL) multivitamin (THERAGRAN) 0 02/25/2010 tablet letrozole (FEMARA) 2.5 mg Take 1 tablet by 90 tablet 3 03/3104/06/2019 Tablet mouth daily. documented as of this encounter Plan of Treatment Upcoming Encounters Date Type Specialty Care Team Description 04/06/2022 Appointment Pulmonology 04/06/2022 Office Visit Pulmonology Matt Watson MD [facility] [place] [place] [address] (Wo rk) documented as of this encounter Procedures Procedure Name Priority Date/Time Associated Diagnosis Comme nts LAB SCAN 04/05/2019 12:00 AM Results for this EST procedure are i n the results section. LAB SCAN 04/05/2019 12:00 AM Results for this EST procedure are i n the results section. MAMMO SCREENING CAD Routine 11/21/2018 10:37 AM Encounter for Results for this AND MATIAS BILATERAL EDT screening mammogram pr janes are in for breast cancer the result s section. documented in this encounter Results SCAN DOC: LAB (04/05/2019 12:00 AM EST) Narrative 04/05/2019 12:00 AM EST This result has an attachment that is no t available. Ordered by an unspecified provider. Scanning Provider MEDIA MGR SCAN EXT ORDR/RSLT SCAN DOC: LAB (04/05/2019 12:00 AM EST) Narrative 04/05/2019 12:00 AM EST This result has an attachment that is no t available. Ordered by an unspecified provider. Scanning Provider MEDIA MGR SCAN EXT ORDR/RSLT Mammo Screening Cad and Matias Bilateral (11/21/2018 10:37 AM EDT) Anatomical Region Laterality Modality Breast Bilateral Mammography Specimen (Source) Anatomical Location Collection Method / Collectio n Time Received Time / Laterality Volume Narrative 11/21/2018 10:54 AM EDT EXAMINATION: MAMMO SCREENING CAD AND MATIAS BILATERAL REASON FOR EXAM: Screening. History of r ight breast cancer. TECHNIQUE: CC and MLO views were obtaine d of both breasts. Computer aided detection was used. 3D tomosynthesis mally ges were obtained in addition to 2D images. COMPARISON: The study is compared with p rior images. FINDINGS: Breast density: There are scattered area s of fibroglandular density. . There are no suspicious microcalcificati ons, masses, or areas of distortion. There are post treatment changes in the right breast. CONCLUSION: No mammographic evidence of malignancy. RECOMMENDATION: Routine annual screening . BIRADS CATEGORY 2: BENIGN FINDINGS * ??Medical organizations agree that darrell ual screening mammography beginning at age 40 saves the most lives. * ??The risks of screening are negligibl e compared to dying from breast cancer or suffering from more aggressive treatment required when detected at a later stage. * ??No woman is at low risk for breast c ancer. * ??Some women, because of their family history, a genetic tendency, or certain other factors, should be screened with b reast MRI along with mammograms. (The number of women who fall into this categ ory is very small). The patient and health care provider should discuss the patient history and decide if earlier screening and breast MRI are appropriate . * ??Screening should continue as long as a woman is in good health and is expected to live 10 years or longer. * ??Screening mammography may not detect 10-15% of breast cancers.\ * ??Women should report any breast lo es to a health care provider right away. Thank you for letting us participate in the care of this patient. For questions regarding this report, please contact e number below. ? Matt Mcdonnell DO IMG MAMMO ORDERABLES documented in this encounter Visit Diagnoses Diagnosis Encounter for screening mammogram for br east cancer documented in this encounter Care Teams Stock Broker Relationship Specialty Start Date End Date Matt Mcdonnell DO PCP - General 11/15/12 11/29/19 [address] [place] [address] documented as of this encounter
--- OUTSIDE RECORDS SUMMARY | 2022-04-03 12:31 | XMS_ITS | Encounter Summary ---
:1935 Author Organization [place] [address] Care Team Providers Name Role Phone Unknown Primary Care Provider Unavailable Encounter Details Date Type Department Care Team Description 04/16/2020 Orders Only General Surgery at [facility] Courtney Dill, Nipple discharge [facility] [place] [address] [facility] [phone] GENERAL SURGERY [place], [place] [address] (Wo rk) Social History Tobacco Use Types [...] 04/06/2022 Office Visit Pulmonology Matt Watson MD [facility] PULMON[facility] [place], [place] [address] (Wo rk) documented as of this encounter Results US Breast Limited Left (06/06/2020 11:43 AM EST) Anatomical Region Laterality Modality Breast Left Mammography Specimen (Source) Anatomical Location Collection Method / Collectio n Time Received Time / Laterality Volume Impressions 06/06/2020 11:48 AM EST No mammographic or directed ultrasound of malignancy with attention to the left retroareolar region. Clinical follow-up is advised. MR should be considered based on the clinical assessment knowing that this patient has a cardiac pacer which may or may not be MR compatible. BI-RADS Category 1: Negative * ??Regular screening mammograms startin g between age 40 and 50 reduces the risk of from breast cancer. * ??All screening tests have both risks and benefits. These risks and benefits should be assessed for each individual p atient through discussion with their provider to determine their preferred east cancer screening schedule. * ??Women should [...] Patients and health care providers should discuss the history of each patient to decide if earlier screening and/or breast MRI are appropriate. * ??Screening should continue as long as a woman is in good health and is expected to live 10 years or longer. * ??Screening mammography may not detect 10-15% of breast cancers. Thank you for letting us participate in the care of this patient. For questions regarding this report, please contact e number below. ? Electronically signed by: Flora childress MD, [facility] ([phone]), at 06/06/2020 11:48 AM Narrative 06/06/2020 11:48 AM EST EXAMINATION: MAMMO DIAGNOSTIC CAD AND HALEY LEFT, US ??BREAST LIMITED LEFT CLINICAL HISTORY: LEFT BLOODY NIPPLE DIS CHARGE TECHNIQUE: CC, MLO, true lateral, spot compression magnification CC and spot compression magnification true lateral views in margarito tion to a spot compression left craniocaudal view were performed. 2-D di rect digital capture, 3-D tomosynthesis and computer aided detection (CAD) were used. Additionally, ultrasound was performed of the left retroareolar regio n. COMPARISON: This study was compared with prior image s. FINDINGS: There are scattered areas of fibroglandu lar density. Cardiac pacer housing overlies the left superior axilla There are no suspicious masses, suspicious microcalcifications, or areas of archite ctural distortion. Specifically there is no evidence of dilated duct or developin g asymmetry with attention to the left retroareolar area. Minimal stable postsu rgical distortion is seen at the periareolar area. Left breast ultrasound: High-resolution ultrasound of the left retroareolar region demonstrates no evidence of dilat ed duct or suspicious mass. Courtney Dill MD IMG MAMMO ORDERABLES documented in this encounter Visit Diagnoses Diagnosis Nipple discharge Other sign and symptom in breast Nipple discharge Other sign and symptom in breast documented in this encounter Care Teams Environmental Economist Relationship Specialty Start Date End Date Unknown PCP - General 11/30/19 06/05/20 None documented as of this encounter
--- OUTSIDE RECORDS SUMMARY | 2022-04-03 12:31 | XMS_ITS | Encounter Summary ---
:1935 Author Organization [facility] [place] [address] Care Team Providers Name Role Phone None Primary Care Provider Unavailable Encounter Details Date Type Department Care Team Description 04/13/2021 Orders Only Hematology/Oncology Tory Espinoza Os teoporosis, post-menopausal; at [facility] AR[place]O Breast cancer, stage 1, right [address] [place], [place] HEMATOLOGY ONCO LOG[place] [address] [place], [place] [phone] (Wo rk) Social History Tobacco Use Types [...] 04/06/2022 Office Visit Pulmonology Matt Watson MD [facility] PULMONARY [place], [place] [address] (Wo rk) documented as of this encounter Visit Diagnoses Diagnosis Osteoporosis, post-menopausal Senile osteoporosis Breast cancer, stage 1, right documented in this encounter Care Teams Repairer Maintenance Building Relationship Specialty Start Date End Date None PCP - General 06/06/20 06/18/21 None documented as of this encounter
--- OUTSIDE RECORDS SUMMARY | 2022-04-03 12:31 | XMS_ITS | Encounter Summary ---
:1935 Author Organization [facility] [place] [address] Care Team Providers Name Role Phone Nereida Barnett MD Primary Care Provider Reason for Referral Diagnostic Test (Routine) - Closed Specialty Diagnoses / Procedures Referred By Contact Refer red To Contact Radiology Diagnoses Lung nodule Matias Salmeron MD [facility] Rad Ct Scan Procedures CT Chest wo Contrast (Generic) CT Chest w Contrast [facility] HEMATOLOGY/[place] [address] [place] [address] Referral ID Status Reason Start Date Expiration Date Visits V isits Requested Authorized [id number] Closed Specialty 06/20/2021 12/18/2022 1 1 Service Requested Encounter Details Date Type Department Care Team Description 06/05/2021 Office Visit Hematology/Oncology Esperanza Salmeron MD [facility] HEMATOLOGY/[place] [address] [facility], stage 1[facility] [address] [place] [address] [place] [address] Erythrocytosis; [address] History of ITP; [facility], [place] Lung nodule [id number] Social History Tobacco Use Types Packs/Day [...] Sign Reading Time Taken Comments Blood Pressure 212/100 06/05/2021 11:29 AM EST Pulse 86 06/05/2021 11:29 AM EST Temperature 35.9 ??C (96.7 ??F) 06/05/2021 11:29 AM EST Respiratory Rate 22 06/05/2021 11:29 AM EST Oxygen Saturation 97% 06/05/2021 11:29 AM EST Inhaled Oxygen Concentration - - Weight 82.6 kg (182 lb) 06/05/2021 11:29 AM EST Height 147.5 cm (4' 10.07) 06/05/2021 11:29 AM EST Body Mass Index 37.95 06/05/2021 11:29 AM EST documented in this encounter Progress Notes Matias Salmeron MD - 06/05/2021 11:30 AM EST Subjective: Patient ID: Barbara Casarez is a 85 y.o. female. Patient Active Problem List Diagnosis [...] List: 1. 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 A. Screening mammogram 11/15/12 [...] cancer cells with immunostaining) Stain Intensity: Strong OK immunoreactivity: Positive (>90% cancer cells with immunostaining) [...] Type: Invasive ductal carcinoma Tumor Grade: Low Ykzvtq-Frfjw-Rpkvxthbvx Score: 5 Tubular Differentiation: 2 Mitotic Rate: 1 Nuclear Grade: 2 Tumor Size: 0.7 cm (maximum diameter) In Situ Histologic Type: Not identified (present in the core bx [id number]) Microcalcifications: Not identified Angiolymphatic Invasion: Not identified [...] doses on 11/02/14 ?? 3. 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 [place] to be related to rituxan. Given lack of frequent infections, no intervention recommended. 9. 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 Left hip fracture 07/2016, s/p ORIF after she fell on the stairs 11. S/p JIN/BSO ?? HPI Barbara Casarez is an 85 yo female who is seen in the [facility]. I have not seen her forseveral years. 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 That is remained in her admission for many years. She was referred back to hematology because of an elevated hemoglobin discovered in her regular oncologic follow-up. She has no history of blood clot. She is on Eliquis. She has not had a recurrence ofher breast cancer. She did get a nipple biopsy a year ago because of some blood from her nipple. She also admits to some hematuria a year or 2 ago. It resolved on its own and she never was evaluated for that. She feels fine. She is unaware if she has sleep apnea. She does nap occasionally in the day but doesnot have excessive daytime fatigue. She does have a history of snoring. No fevers chills sweats or weight loss. In review of her hemoglobins they have been elevated over the last year or 2. Most recently her hemoglobin was 16.9. Her oncologic team did send additional studies including: Serum erythropoietin level mildly elevated at 22.7 JA K-2 mutation negative BCR/ABL mutation negative No extremity swelling. Allergies Allergen Reactions ??? Celebrex [Celecoxib] Other (See Comments) Hypotension, tachycardia per patient ??? Norvasc [Amlodipine] Other (See Comments) Causes edema to lower extremities Current Medications ??? Eliquis 5 mg Tablet ??? meTOPROLOL succinate (TOPROL-XL) 50 mg Tablet Sustained Release 24 hr ??? lisinopril (PRINIVIL;ZESTRIL) 20 mg Tablet ??? hydroCHLOROthiazide (HYDRODIURIL) 25 mg Tablet ??? atorvastatin (LIPITOR) 80 mg Tablet ??? CALCIUM CARBONATE/VITAMIN D3 (CALCIUM 600 WITH VITAMIN D3 ORAL) ??? multivitamin (THERAGRAN) tablet ??? acetaminophen (TYLENOL) 500 mg Tablet ??? nitroGLYcerin (NITROSTAT) 0.4 mg Tablet, Sublingual [...] Appearance: Normal appearance. She is not ill-appearing. Eyes: Extraocular Movements: Extraocular movements intact. Cardiovascular: Rate and Rhythm: Normal rate. Pulmonary: Effort: Pulmonary effort is normal. Musculoskeletal: Right lower leg: No edema. Left lower leg: No edema. Skin: General: Skin is warm and dry. Findings: No rash. Neurological: Mental Status: She is alert and oriented to person, place, and time. Coordination: Coordination normal. Psychiatric: Mood and Affect: Mood normal. Thought Content: Thought content normal. BP (!) 212/100 (Patient Position: Sitting) Pulse 86 Temp 35.9 ??C (96.7 ??F) (Temporal) Resp 22 Ht 147.5 cm (4' 10.07) Wt 82.6 kg (182 lb) SpO2 97% BMI 37.95 kg/m?? LABS 04/09/21 WBC 8.9; ANC 6.4; H/H 17.6/ 55.0; ( 15.7/48.6 04/19; 15.0/ 46.2 04/18); PLT 127; BUN 20; CREAT 1.03;; LFTs normal; CA++ 9.9 CBC from 05/20/2020 White count 10.4, ANC 7.6, hemoglobin 16.9, platelets 147 Assessment and Plan: Assessment: Barbara Casarez is an 85 yo female diagnosed in 2012 with stage 1A, low grade, ER/OK+, HER-2 veronica negative right breast cancer. 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 Now referred because of elevated hemoglobin. So far her work-up is not suggestive of an intrinsic marrow disorder such as a myeloproliferative neoplasm. 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 In general we do not need to treat that. I am a bit concerned because of the history of hematuria and her elevated erythropoietin level in the setting of her elevated hemoglobin. She may have a erythropoietin secreting tumor. I recommended screening her with a CT scan of the chest abdomen and pelvis but these tumors can be both of lung origin as well as kidney origin. In the meantime I asked her to consider getting a sleep apnea study which may be another source of secondary polycythemia and her. I will let her know the results of her CT scan and if further work-up is needed but if that is negative I think she can just follow-up with her primary care doctor. She should not need any interventionfor the secondary polycythemia. 06/20/[address] scan report received. No renal issues 6 x 4 mm nodule opacity right apex repeat CT scan in 6 to 12 months recommended Ovoid calcified lesion 12 x 13 mm in the right posterior breast I still think her polycythemia is secondary. No signs of a malignancy driving it. following up her chest CT with a repeat CT scan in about 8 months at [facility] would be a reasonable thing that and requested when I phoned her today. Her primary care doctor has set her up an appointment for a right mammo and ultrasound to follow-up on the right breast lesion. I will plan to see her in about 8 or 9 months and repeat her CBC and get it CT scan of the chest to follow-up that nodule. documented in this encounter Miscellaneous Notes Addendum Note - Matias Salmeron MD - 06/05/2021 11:30 AM EST Addended by: MATIAS SALMERON on: 06/20/2021 03:00 PM Modules accepted: Orders documented in this encounter Plan of Treatment Upcoming Encounters Date Type Specialty Care Team Description 04/06/2022 Appointment Pulmonology 04/06/2022 Office Visit Pulmonology Matt Watson MD [facility] [address] ANEESH TOMPKINS [place], [place] [address] (Wo rk) documented as of this encounter Results CT Chest wo Contrast (Generic) (02/09/2022 10:57 [...] who have questions please contact the health pet care assistant that requested your imaging first. ? Electronically signed by: Danielle Lamar MD , [facility] ([phone]), at 02/09/2022 2:42 PM Narrative 02/09/2022 2:42 PM EDT EXAMINATION: CT [...] and right ventricle. Modera te to severe [place] coronary artery calcification. No pericardial effusion. Moderately [...] and right ventricle. Modera te to severe [place] coronary artery calcification. No pericardial effusion. Moderately [...] ho have questions please contact the health pet care assistant that requested your imaging first. Electronically signed by: Danielle Lamar MD , [facility] ([phone]), at 02/09/2022 2:42 PM Matias Salmeron MD IMG CT ORDERABLES (ABNORMAL) Comprehensive metabolic panel (non-fasting) (02/09/2022 9:54 AM EDT) P athologist Signature Glucose Lvl 114 65 - 199 [facility] mg/dL [facility] Comment: Diabetes: >=200 mg/dL plus symp toms BUN 20 (H) 8 - 18 mg/dL [facility] Creatinine 1.04 0.70 - 1.20 mg/dL [facility] Sodium 140 135 - 145 [...] estions. Chloride 103 98 - 107 mmol/L [facility] CO2 29 22 - 31 mmol/L [facility] Anion Gap 8 5 - 15 mmol/L [facility] Calcium 9.8 8.5 - 10.5 mg/dL [facility] Total Protein 6.2 6.1 - 8.0 g/dL [facility] Albumin 3.8 3.2 - 5.2 g/dL [facility] AST 25 0 - 30 unit/L [facility] ALT 17 0 - 30 unit/L [facility] Alk Phos 88 35 - 105 unit/L [facility] Total Bilirubin 1.0 0.2 - 1.3 mg/dL [facility] Estimated GFR 53 (L) >=60 mL/min/1.73 m?? [facility] Comment: This patient's estimated [...] Organization Address City/State/[place] [address] documented in this encounter Visit Diagnoses Diagnosis Breast cancer, stage 1, right Erythrocytosis Polycythemia, secondary History of ITP Personal history of diseases of blood an d blood-forming organs Lung nodule Solitary pulmonary nodule Lung nodule Solitary pulmonary nodule documented in this encounter Care Teams Ibm Web[employer] Portal Developer Relationship Specialty Start Date End Date Nereida Barnett MD PCP - General Family Medicine 06/19/[address] [facility] [place] [address] documented as of this encounter
--- OUTSIDE RECORDS SUMMARY | 2022-04-03 12:31 | XMS_ITS | Encounter Summary ---
:1935 Author Organization [facility] [place] [address] Care Team Providers Name Role Phone Matt Mcdonnell Martha KHAN Primary Care Provider Encounter Details Date Type Department Care Team Description 04/15/2018 Office Visit Hematology/Oncology Yao Feliciano Br east cancer, stage 1, estrogen receptor positive, right; at [facility] Chronic ITP (idiopathic thrombocytopenia ); [address] [place] [address] Osteoporosis, [place] [address] ONCOLOGY [phone] [place], [place] [address] Social History Tobacco Use Types [...] Sign Reading Time Taken Comments Blood Pressure 172/82 04/15/2018 1:12 PM EST Pulse 89 04/15/2018 1:12 PM EST Temperature - - Respiratory Rate 16 04/15/2018 1:12 PM EST Oxygen Saturation 99% 04/15/2018 1:12 PM EST Inhaled Oxygen Concentration - - Weight 83.9 kg (185 lb) 04/15/2018 1:12 PM EST Height 147 cm (4' 9.87) 04/15/2018 1:12 PM EST Body Mass Index 38.83 04/15/2018 1:12 PM EST documented in this encounter Progress Notes Yao Feliciano MD - 04/15/2018 1:30 PM EST Subjective: Patient ID: Barbara Casarez is a 82 y.o. female. Problem List: 1. Cancer of the right breast, [id number], stage IA, low grade, ER/AR positive, Her-2/veronica negative. A. Screening mammogram 11/15/12 [...] cancer cells with immunostaining) Stain Intensity: Strong [place] immunoreactivity: Positive (>90% cancer cells with immunostaining) [...] Type: Invasive ductal carcinoma Tumor Grade: Low Rakisy-Euqgv-Lgrvrxhnes Score: 5 Tubular Differentiation: 2 Mitotic Rate: 1 Nuclear Grade: 2 Tumor Size: 0.7 cm (maximum diameter) In Situ Histologic Type: Not identified (present in the core bx [id number]) Microcalcifications: Not identified Angiolymphatic Invasion: Not identified [...] therapy completed 03/31/13. G. 04/07/13 - started femara H. Bilateral mammogram 11/18/17 - FINDINGS: Breast density:There are scattered areas of fibroglandular density. ?? There are no suspicious microcalcifications, masses, or areas of distortion. There are post treatment changes in the right breast. ?? CONCLUSION: No mammographic evidence of malignancy. ?? RECOMMENDATION: Routine screening. ?? BIRADS CATEGORY 2: BENIGN FINDINGS [...] 4 doses on 11/02/14 3. ASCVD s/p SD with v fib arrest in 04/14 s/p [...] 42, IgG - 424, IgM - 23. [place] to be related to rituxan. Given lack [...] on 11/02/14. On presentation today, she is doing pretty well overall. Her appetite is good and her weight is stable. She still has some discomfort in the left hip but no new or worsening areas of pain. She has someknee pain related to OA which is about [...] is normal. Vitals reviewed. Labs: WBC/ANC - 8.10/5999, Hgb/Hct - 14.2/44.1, Plts -152,000. BUN/Cr - 17/0.83. 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 She was diagnosed [...] she began femara, 2.5 mg per day. We talked about duration of therapy. The recommendation is for a minimum of 5 years. Extended therapy appears to have some benefit in improving DFS andis reasonable to consider, particularly in the setting of high risk disease. Given that this is a stage I low grade cancer, her issues with osteoporosis and concern about side effects with tamoxifen, Ithink it is very reasonable in her case to stop at this point. The mammogram done in 11/15 showed no evidence of malignancy. For osteoporosis, she is taking calcium with vitamin D. We gave one dose of reclast, in 11/14 and shehas not received it since then for unclear reasons. The most recent dexa scan done in 04/17 shows a decrease in BMD at the right femoral neck. She will receive reclast today. We will check a vitamin D level in the next 1-2 weeks. She will let us know when she has it done so that we can f/u with her onthe result. She also has ITP. The platelet count [...] dex was repeated. The platelets again responded. The decision was madeto give a course of weekly rituxan and she began this on 10/12/14. She tolerated this well and completed 4 doses on 11/02/14. The platelet count has increased overall and, allowing for some fluctuation, has been stable since then. I will plan to see her in six months with a cbc. documented in this encounter Plan of Treatment Upcoming Encounters Date Type Specialty Care Team Description 04/06/2022 Appointment Pulmonology 04/06/2022 Office Visit Pulmonology Matt Watson MD [facility] PULMONARY [place], [place] [address] (Wo rk) documented as of this encounter Procedures Procedure Name Priority Date/Time Associated Comments Diagnosis LAB SCAN 04/11/2018 12:00 AM Results for this EST procedure are i n the results section. DIAGNOSTIC RADIOLOGY 04/11/2018 12:00 AM Results for this SCAN EST procedure are i n the results section. documented in this encounter Results SCAN DOC: DIAGNOSTIC RADIOLOGY (04/11/2018 12:00 AM EST) Narrative 04/11/2018 12:00 AM EST This result has an attachment that is no t available. Ordered by an unspecified provider. Scanning Provider MEDIA MGR SCAN EXT ORDR/RSLT SCAN DOC: LAB (04/11/2018 12:00 AM EST) Narrative 04/11/2018 12:00 AM EST This result has an attachment that is no t available. Ordered by an unspecified provider. 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
--- OUTSIDE RECORDS SUMMARY | 2022-04-03 12:31 | XMS_ITS | Encounter Summary ---
:1935 Author Organization [facility] [place] [address] Care Team Providers Name Role Phone Nereida Barnett MD Primary Care Provider [phone] Encounter Details Date Type Department Care Team Description 11/03/2021 Hospital Encounter Mammography at [facility] Courtney Dill Nipple discharge [facility] MD Luli [facility] [id number] GENERAL SURGERY [phone] [place], [place] [address] Social History Tobacco Use Types [...] Sig Dispensed Refills Start Date End Date Eliquis 5 mg Tablet Take 5 mg by 0 03/30/2021 mouth 2 times daily. meTOPROLOL succinate Take 1 tablet by 30 tablet 12 7 (TOPROL-XL) 50 mg Tablet mouth daily. Sustained Release 24 hr acetaminophen (TYLENOL) 500 mg Take 650 mg by 0 Tablet mouth every 6 hours as needed [...] D3 ORAL) multivitamin (THERAGRAN) 0 02/25/2010 tablet documented as of this encounter Plan of Treatment Upcoming Encounters Date Type Specialty Care Team Description 04/06/2022 Appointment Pulmonology 04/06/2022 Office Visit Pulmonology Matt Watson MD [facility] PUL[facility] [place], [place] [address] (Wo rk) documented as of this encounter Procedures Procedure Name Priority Date/Time Associated Comments Diagnosis MAMMO DIAGNOSTIC CAD Routine 11/03/2021 9:55 AM Nipple dischar ge Results for this AND MATIAS LEFT EDT procedure are in the results section. documented in this encounter Results Mammo Diagnostic Cad and Maitas Left (11/03/2021 9:55 AM EDT) Anatomical Region Laterality Modality Breast Left Mammography Specimen (Source) Anatomical Location Collection Method / Collectio n Time Received Time / Laterality Volume Addenda Addendum by Inge Harrington MD on 10/2021 7:58 PM EDT --------ADDENDUM #2-------- FINDINGS ULTRASOUND: This is better seen on ultrasound than (not and) mammogram. Thank you for letting us participate in the care of this patient. ??If you are a health care provider and have any questi ons regarding this report, please contact the number below. ??For patients who have questions please contact the health care support representative that requested your imaging first. ? Electronically signed by: Inge Harrington MD, [facility] ([phone]), at 11/03/2021 7:53 PM --------ADDENDUM #1-------- Dr. Harrington discussed with the patient t hat she follow up with Dr. Dill. Patient noted that she has already been in contact with Dr. Dill's office, but does not have an appointment yet. Thank you for letting us participate in the care of this patient. ??If you are a health care provider and have any questi ons regarding this report, please contact the number below. ??For patients who have questions please contact the health care support representative that requested your imaging first. ? Electronically signed by: Inge Harrington MD, [facility] ([phone]), at 11/03/2021 12:51 PM --------ORIGINAL REPORT -------- EXAMINATION: Diagnostic mammogram and fo cused ultrasound left breast. CLINICAL HISTORY: Left breast spontaneou s bloody nipple discharge TECHNIQUE AND VIEWS OBTAINED: Images acquired with direct digital capt ure: left ML, MLO, CC, magnification CC and magnification 90 degree. ??Tomograph ic imaging was performed The exam was evaluated by CAD version 8.3.17.. ??Ultr asound was performed of the subareolar region COMPARISONS: Comparisons are made to prior exam(s). BREAST DENSITY: There are scattered areas of fibroglandu lar density FINDINGS MAMMOGRAPHY: There is a suggestion of new calcificati ons within the left nipple, best seen on the magnification view. Otherwise, no si gnificant change. FINDINGS ULTRASOUND: On visual inspection, the nipple is prot uberant, slightly tense and purplish in color. There are echogenic foci within t he nipple, likely indicating heterogeneous, irregular and fine linear calcifications within the nipple. This is better seen on ultrasound and mammogr am. DIAGNOSTIC SUMMARY: LEFT BREAST LESION #1 abnormal nipple wi th suspicious calcifications. Tissue sampling should be considered. This is n ot amenable to mammographic or ultrasound guided biopsy. If it would change clinical management, MRI may be considered. INTERPRETATION: Left breast BI-RADS Category 4: Suspicio us Finding - Biopsy Should Be Considered Thank you for letting us participate in the care of this patient. ??If you are a health care provider and have any questi ons regarding this report, please contact the number below. ??For patients who have questions please contact the health care support representative that requested your imaging first. ? Electronically signed by: Inge Harrington MD, [facility] ([phone]), at 11/03/2021 12:23 PM Addendum by Inge Harrington MD on 10/2021 12:56 PM EDT --------ADDENDUM #1-------- Dr. Harrington discussed with the patient t hat she follow up with Dr. Dill. Patient noted that she has already been in contact with Dr. Dill's office, but does not have an appointment yet. Thank you for letting us participate in the care of this patient. ??If you are a health care provider and have any questi ons regarding this report, please contact the number below. ??For patients who have questions please contact the health care support representative that requested your imaging first. ? Electronically signed by: Inge Harrington MD, [facility] ([phone]), at 11/03/2021 12:51 PM --------ORIGINAL REPORT -------- EXAMINATION: Diagnostic mammogram and fo cused ultrasound left breast. CLINICAL HISTORY: Left breast spontaneou s bloody nipple discharge TECHNIQUE AND VIEWS OBTAINED: Images acquired with direct digital capt ure: left ML, MLO, CC, magnification CC and magnification 90 degree. ??Tomograph ic imaging was performed The exam was evaluated by CAD version 8.3.17.. ??Ultr asound was performed of the subareolar region COMPARISONS: Comparisons are made to prior exam(s). BREAST DENSITY: There are scattered areas of fibroglandu lar density FINDINGS MAMMOGRAPHY: There is a suggestion of new calcificati ons within the left nipple, best seen on the magnification view. Otherwise, no si gnificant change. FINDINGS ULTRASOUND: On visual inspection, the nipple is prot uberant, slightly tense and purplish in color. There are echogenic foci within t he nipple, likely indicating heterogeneous, irregular and fine linear calcifications within the nipple. This is better seen on ultrasound and mammogr am. DIAGNOSTIC SUMMARY: LEFT BREAST LESION #1 abnormal nipple wi th suspicious calcifications. Tissue sampling should be considered. This is n ot amenable to mammographic or ultrasound guided biopsy. If it would change clinical management, MRI may be considered. INTERPRETATION: Left breast BI-RADS Category 4: Suspicio us Finding - Biopsy Should Be Considered Thank you for letting us participate in the care of this patient. ??If you are a health care provider and have any questi ons regarding this report, please contact the number below. ??For patients who have questions please contact the health care support representative that requested your imaging first. ? Electronically signed by: Inge Harrington MD, [facility] ([phone]), at 11/03/2021 12:23 PM Narrative 11/03/2021 12:23 PM EDT EXAMINATION: Diagnostic mammogram and focused ultrasound left breast. CLINICAL HISTORY: Left breast spontaneou s bloody nipple discharge TECHNIQUE AND VIEWS OBTAINED: Images acquired with direct digital capt ure: left ML, MLO, CC, magnification CC and magnification 90 degree. ??Tomograph ic imaging was performed The exam was evaluated by CAD version 8.3.17.. ??Ultr asound was performed of the subareolar region COMPARISONS: Comparisons are made to prior exam(s). BREAST DENSITY: There are scattered areas of fibroglandu lar density FINDINGS MAMMOGRAPHY: There is a suggestion of new calcificati ons within the left nipple, best seen on the magnification view. Otherwise, no si gnificant change. FINDINGS ULTRASOUND: On visual inspection, the nipple is prot uberant, slightly tense and purplish in color. There are echogenic foci within t he nipple, likely indicating heterogeneous, irregular and fine linear calcifications within the nipple. This is better seen on ultrasound and mammogr am. DIAGNOSTIC SUMMARY: LEFT BREAST LESION #1 abnormal nipple wi th suspicious calcifications. Tissue sampling should be considered. This is n ot amenable to mammographic or ultrasound guided biopsy. If it would change clinical management, MRI may be considered. INTERPRETATION: Left breast BI-RADS Category 4: Suspicio us Finding - Biopsy Should Be Considered Thank you for letting us participate in the care of this patient. ??If you are a health care provider and have any questi ons regarding this report, please contact the number below. ??For patients who have questions please contact the health care support representative that requested your imaging first. ? Electronically signed by: Inge Harrington MD, [facility] ([phone]), at 11/03/2021 12:23 PM Procedure Note Inge Harrington MD - 11/03/2021Format ting of this note might be different from the original. EXAMINATION: Diagnostic mammogram and fo cused ultrasound left breast. CLINICAL HISTORY: Left breast spontaneou s bloody nipple discharge TECHNIQUE AND VIEWS OBTAINED: Images acquired with direct digital capt ure: left ML, MLO, CC, magnification CC and magnification 90 degree. Tomographic imaging was performed The exam was evaluated by CAD version 8.3.17.. Ultras ound was performed of the subareolar region COMPARISONS: Comparisons are made to prior exam(s). BREAST DENSITY: There are scattered areas of fibroglandu lar density FINDINGS MAMMOGRAPHY: There is a suggestion of new calcificati ons within the left nipple, best seen on the magnification view. Otherwise, no si gnificant change. FINDINGS ULTRASOUND: On visual inspection, the nipple is prot uberant, slightly tense and purplish in color. There are echogenic foci within t he nipple, likely indicating heterogeneous, irregular and fine linear calcifications within the nipple. This is better seen on ultrasound and mammogr am. DIAGNOSTIC SUMMARY: LEFT BREAST LESION #1 abnormal nipple wi th suspicious calcifications. Tissue sampling should be considered. This is n ot amenable to mammographic or ultrasound guided biopsy. If it would change clinical management, MRI may be considered. INTERPRETATION: Left breast BI-RADS Category 4: Suspicio us Finding - Biopsy Should Be Considered Thank you for letting us participate in the care of this patient. If you are a health care provider and have any questi ons regarding this report, please contact the number below. For patients w ho have questions please contact the health care support representative that requested your imaging first. Electronically signed by: Inge Harrington MD, [facility] ([phone]), at 11/03/2021 12:23 PM Courtney Dill MD IMG MAMMO ORDERABLES documented in this encounter Visit Diagnoses Diagnosis Nipple discharge Other sign and symptom in breast documented in this encounter Care Teams Communications Equipment Installer Relationship Specialty Start Date End Date Nereida Barnett MD PCP - General Family Medicine 06/19/[address] [place] [address] documented as of this encounter
--- OUTSIDE RECORDS SUMMARY | 2022-04-03 12:31 | XMS_ITS | Encounter Summary ---
:1935 Author Organization [facility] [place] [address] Care Team Providers Name Role Phone None Primary Care Provider Unavailable Reason for Visit Reason Comments Follow-up Consultation (Routine) - Closed Specialty Diagnoses / Procedures Referred By Contact Refer red To Contact Hematology and Oncology Diagnoses Breast cancer, stage 1, right Osteoporosis, post-menopausal Tory Espinoza Kari M, A, APRN MD [address] [place] [address] [place], [place] GENERAL SURGERY [id number] [place] [phone] Fax: Referral ID Status Reason Start Date Expiration Date Visits V isits Requested Authorized [id number] Closed Consult, 04/16/2020 04/16/2021 1 1 Test & Treat Encounter Details Date Type Department Care Team Description 06/06/2020 Office Visit Hematology and Oncology Courtney Dill, [facility] [place] [facility] [place] [address] GENERAL SURGERY [place], [place] [address] (Wo rk) Social History Tobacco [...] Sign Reading Time Taken Comments Blood Pressure 123/55 06/06/2020 1:22 PM EST Pulse 87 06/06/2020 1:22 PM EST Temperature 36.4 ??C (97.5 ??F) 06/06/2020 1:22 PM EST Respiratory Rate 20 06/06/2020 1:22 PM EST Oxygen Saturation 96% 06/06/2020 1:22 PM EST Inhaled Oxygen Concentration - - Weight 85.9 kg (189 lb 6.4 oz) 06/06/2020 1:22 PM EST Height 147.5 cm (4' 10.07) 06/06/2020 1:22 PM EST Body Mass Index 39.49 06/06/2020 1:22 PM EST documented in this encounter Progress Notes Courtney Dill MD - 06/06/2020 1:30 PM EST Subjective: Patient ID: Barbara Casarez is a 84 y.o. female. HPI Barbara is seen today in surgical consultation at the request of Dr. Feliciano. She presents to discussleft bloody nipple discharge. She has a history of right breast cancer as noted below. In terms of the left breast, Barbara reports several years of intermittent blood from the left breast. 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 The discharge never ceased but appears every 3-4 months. She sees it on the sheets. She is not sure if it is related to the ductal system (emanating from the breast) or is more skinrelated as she has noted some pruritis and skin change. Last discharge was 3-4 months ago. Imaging today with mammogram and u/s are negative. 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 A. Screening mammogram 11/15/12 - left [...] cancer cells with immunostaining) Stain Intensity: Strong LA immunoreactivity: Positive (>90% cancer cells with immunostaining) [...] Type: Invasive ductal carcinoma Tumor Grade: Low Lznvoi-Anpxq-Aiebeuiipv Score: 5 Tubular Differentiation: 2 Mitotic Rate: 1 Nuclear Grade: 2 Tumor Size: 0.7 cm (maximum diameter) In Situ Histologic Type: Not identified (present in the core bx [id number]) Microcalcifications: Not identified Angiolymphatic Invasion: Not identified [...] started femara; completed 5 years in 03/2018 SH: . 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 Has children and grandchildren Past Medical History: Diagnosis Date ??? Breast cancer ??? Cancer ??? Hypertension Idiopathic thrombocytopenia. Review of Systems Constitutional: Positive for fatigue. Eyes: Negative. Respiratory: Positive for shortness of breath. Gastrointestinal: Negative. Musculoskeletal: Positive for gait problem (uses cane). Allergic/Immunologic: Negative. Hematological: Bruises/bleeds easily. Psychiatric/Behavioral: Negative. Objective: Physical Exam Constitutional: Appearance: Normal appearance. Cardiovascular: Rate and Rhythm: Normal rate and regular rhythm. Pulmonary: Effort: Pulmonary effort is normal. Breath sounds: Normal breath sounds. Chest: Breasts: Right: No nipple discharge. Left: Skin change (small area of skin change in the upper inner areola- consistent with eczema or pagets) present. No nipple discharge. Musculoskeletal: Normal range of motion. Lymphadenopathy: Upper Body: Right upper body: No axillary adenopathy. Left upper body: No axillary adenopathy. Neurological: General: No focal deficit present. Mental Status: She is alert. Psychiatric: Mood and Affect: Mood normal. Imaging: as in hpi. I have reviewed mammogram and u/s Assessment and Plan: Barbara is an 84 yo female with a history of right breast cancer now with persistent, intermittent spontaneous bloody nipple discharge of the left nipple. She is not sure if this is a related to a skin lesion or a ductal issue. Of note- Barbara has been struggling with thrombocytopenia but the discharge started prior and she has no known trauma. She does have some skin changes which may represent paget's disease and I recommend a biopsy of this. 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 Will call Barbara with results of biopsy and will discuss next steps at that time. Courtney Dill MD - 06/06/2020 1:30 PM EST Procedure Note After obtaininng informed consent and confirming the site, I prepped the left breast, injected lidocaine and performed a 3mm punch biopsy of the affected areolar skin. I held pressure and glued the incision closed. documented in this encounter Plan of Treatment Upcoming Encounters Date Type Specialty Care Team Description 04/06/2022 Appointment Pulmonology 04/06/2022 Office Visit Pulmonology Matt Watson MD [facility] DR ANEESH [place], [place] [address] (Wo rk) documented as of this encounter Procedures Procedure Name Priority Date/Time Associated Diagnosis Comme nts SURGICAL PATHOLOGY Routine 06/06/2020 3:02 PM Res ults for this REPORT EST procedure are i n the results section. SPECIMEN TO Routine 06/06/2020 3:02 PM Nipple discharge Resul ts for this PATHOLOGY EST procedure are i n the results section. documented in this encounter Results Surgical Pathology Report (06/06/2020 3:02 PM EST) Component Value Ref Test Analysis Performed At [facility] Range Method Time Signature Surgical [id number] ? Location: [address] [place] [address] The signing pathologist has (i) examined the relevant preparation(s) for the [facility] specimen(s) and (ii) rendered or confirmed the diagnosis(es) . [facility] . ? Addendum ADDENDUM DISCUSSION The diagnosis is unchanged. PASd staining was performe d and was negative for intracorneal fungal elements. Electronically signed by: ??Michel Archer MD Verified: ??06/13/2020 ?Dermatopathologist Performed at: ??-[facility] Dept. [place]ology, [place], [place] ?Surgic al Pathology DIAGNOSIS Left nipple, skin biopsy: - Negative for Paget's disease ?? (see discussion) Electronically signed by: ??Michel Archer MD Verified: ??06/13/2020 ?Dermatopathologist Performed at: ??-[facility] Dept. of Pathology, [place], [place] DISCUSSION The sparse findings (minimal ?? epidermal edema ??and dermal perivascular lymphocytes) could represent spongiotic/ contact dermatitis. Clinical correlation is necessary. PASd staining is being perf ormed to exclude dermatophytes. Results will follow in an addendum to this report. SPECIMEN(S) SUBMITTED A - left nipple, biopsy (1) CLINICAL INFORMATION Left nipple 3 mm punch biopsy,? Paget's disease SPECIMEN PROCESSING A - Labeled/Fixative: Patient demographics, formalin. Quantity/Size: ??Single, to 0.3 cm. Tissue Description: Aviles pink skin punch excised to a depth o f 0.5 cm. Sections/Processing: Submitted en toto ??in 1 cassette labeled A1. ??MLL Specimen (Source) Anatomical Collection Method Collection Time Re ceived Time Location / / Volume Laterality 06/06/2020 3:02 PM EST Courtney Dill MD PATHOLOGY/CYTOLOGY ORDERABLE S Performing Organization Address City/State/[place] [address] Specimen to Pathology (06/06/2020 3:02 PM EST) Specimen Anatomical Collection Method Collection Time Receive d Time (Source) Location / / Volume Laterality AP Specimen 06/06/2020 3:02 PM 3:02 EST PM EST Narrative [facility] - 06/06/2020 3:02 PM EST Specimen requisition ordered. ??Separate Pathology report to follow Courtney Dill MD PATHOLOGY/CYTOLOGY ORDERABLE S Performing Organization Address City/[facility]/[place] [address] documented in this encounter Visit Diagnoses Diagnosis Nipple discharge Other sign and symptom in breast documented in this encounter Care Teams Adobe Developer Relationship Specialty Start Date End Date None PCP - General 06/06/20 06/18/21 None documented as of this encounter
--- OUTSIDE RECORDS SUMMARY | 2022-04-03 12:31 | XMS_ITS | Encounter Summary ---
:1935 Author Organization [facility] [place] [address] Care Team Providers Name Role Phone RoMatt dejesus Martha KHAN Primary Care Provider Encounter Details Date Type Department Care Team Description 11/02/2019 [facility], [facility] MD Marisela 1, right [facility] [address] [place], [place] ONCOLOGY [address] [place], [place] [phone] [facility] Social History Tobacco Use Types Packs/Day Years [...] 04/06/2022 Appointment Pulmonology 04/06/2022 Office Visit Pulmonology aMtt Watson MD [facility] PULMONARY [place], [place] [address] (Wo rk) documented as of this encounter Procedures Procedure Name Priority Date/Time Associated Diagnosis Comme nts MAMMO SCREENING CAD Routine 11/02/2019 10:13 AM Breast cancer, stage Results for this AND MATIAS BILATERAL EDT 1, right procedure are in the results section. documented in this encounter Results Mammo Screening Cad and [...] result letter has been sent to this franki agudelo by [facility]. BIRADS CATEGORY [...] right documented in this encounter Care Teams Pitch Flaker Relationship Specialty Start Date End Date Matt Mcdonnell DO PCP - General 11/15/12 11/29/19 [address] [place] [address] documented as of this encounter
--- OUTSIDE RECORDS SUMMARY | 2022-04-03 12:31 | XMS_ITS | Encounter Summary ---
:1935 Author Organization [facility] [place] [address] Care Team Providers Name Role Phone Nereida Barnett MD Primary Care Provider [phone] Encounter Details Date Type Department Care Team Description 01/09/2022 Orders Only General Surgery at [facility] Courtney Dill MD [facility] [place] [address] GENERAL SURGERY [phone] [place], [place] [address] (Wo rk) Social History Tobacco [...] 04/06/2022 Office Visit Pulmonology Matt Watson MD [facility] [address] [place], [place] [address] (Wo rk) documented as of this encounter Visit Diagnoses Not on filedocumented in this encounter Care Teams Welder Fitter Relationship Specialty Start Date End Date Nereida Barnett MD PCP - General Family Medicine 06/19/[address] [place] [address] documented as of this encounter
--- OUTSIDE RECORDS SUMMARY | 2022-04-03 12:31 | XMS_ITS | Encounter Summary ---
:1935 Author Organization [facility] [place] [address] Care Team Providers Name Role Phone Nereida Barnett MD Primary Care Provider [phone] Encounter Details Date Type Department Care Team Description 11/03/2021 Hospital Encounter Mammography at [facility] [place] Courtney Dill Nipple discharge [facility] MD Luli [facility] [address] GENERAL SURGERY [phone] [place], [place] [address] Social History Tobacco Use Types [...] 04/06/2022 Office Visit Pulmonology Matt Watson MD [facility] PULMONARY [place], [place] [address] (Wo rk) documented as of this encounter Procedures Procedure Name Priority Date/Time Associated Diagnosis Comme nts MAMMO BREAST US Routine 11/03/2021 10:07 AM Nipple discharge R esults for this LIMITED LEFT EDT procedure are i n the results section. documented in this encounter Results US Breast Limited Left (11/03/2021 10:07 AM EDT) Anatomical Region Laterality Modality Breast [...] who have questions please contact the health attending ambulatory care that requested your imaging first. ? --------ADDENDUM #1-------- Dr. Harrington discussed with the [...] who have questions please contact the health attending ambulatory care that requested your imaging first. ? --------ORIGINAL REPORT -------- EXAMINATION: Diagnostic mammogram and [...] who have questions please contact the health attending ambulatory care that requested your imaging first. ? Addendum by Inge Harrington MD on 10/2021 [...] who have questions please contact the health attending ambulatory care that requested your imaging first. ? --------ORIGINAL REPORT -------- EXAMINATION: Diagnostic mammogram and [...] who have questions please contact the health attending ambulatory care that requested your imaging first. ? Narrative 11/03/2021 12:23 PM EDT EXAMINATION: Diagnostic [...] who have questions please contact the health attending ambulatory care that requested your imaging first. ? Procedure Note Inge Harrington MD - 11/03/2021Format [...] ho have questions please contact the health attending ambulatory care that requested your imaging first. Courtney Dill MD IMG MAMMO ORDERABLES documented in this encounter Visit Diagnoses Diagnosis Nipple discharge Other sign and symptom in breast documented in this encounter Care Teams Pharmaceutical Development Technician Relationship Specialty Start Date End Date Nereida Barnett MD PCP - General Family Medicine 06/19/[address] [place] [address] documented as of this encounter
--- OUTSIDE RECORDS SUMMARY | 2022-04-03 12:31 | XMS_ITS | Encounter Summary ---
:1935 Author Organization [facility] [place] [address] Care Team Providers Name Role Phone Nereida Barnett MD Primary Care Provider [phone] Reason for Referral Diagnostic Test (Routine) - New Request Specialty Diagnoses / Procedures Referred By Contact Refer red To Contact Radiology Diagnoses Abnormal mammogram Nereida Barnett MD [facility] Rad Mammography Procedures Mammo Diagnostic Cad and Matias Right [address] [place] [address] [address] Referral ID Status Reason Start Expiration Visits Visits Date Date Requested Authorized [id number] New Request Specialty 06/19/2021 12/17/2022 1 1 Service Requested Reason for Visit Diagnostic Test (Routine) - New Request Specialty Diagnoses / Procedures Referred By Contact Refer red To Contact Radiology Diagnoses Abnormal mammogram Nereida Barnett MD [facility] Rad Mammography Procedures Mammo Diagnostic Cad and Matias Right [address] [place] [address] [address] Referral ID Status Reason Start Expiration Visits Visits Date Date Requested Authorized [id number] New Request Specialty 06/19/2021 12/17/2022 1 1 Service Requested Encounter Details Date Type Department Care Team Description 06/24/2021 Hospital Encounter Mammography at [facility] [place], Abnormal mammogram [facility] Nereida Rockwell MD Drive [address] [place] [facility] [place] [address] [place] [phone] Social History Tobacco Use Types Packs/Day Years [...] Visit Pulmonology Matt Watson MD [facility] PULMONARY [place], [place] [address] (Wo rk) documented as of this encounter Procedures Procedure Name Priority Date/Time Associated Comments Diagnosis MAMMO DIAGNOSTIC CAD Routine 06/24/2021 2:00 PM Abnormal mammo gram Results for this AND MATIAS RIGHT EST procedure are in the results section. documented in this encounter Results Mammo Diagnostic Cad and Matias Right (06/24/2021 2:00 PM EST) Anatomical Region Laterality Modality Breast Right Mammography Specimen (Source) Anatomical Location Collection Method / Collectio n Time Received Time / Laterality Volume Impressions 06/24/2021 4:38 PM EST Stable posttreatment changes including fat necrosis corresponding to the calcified mass identified on recent CT s can. Patient should resume annual screening m ammography. BIRADS CATEGORY 2: BENIGN FINDINGS * ??Regular screening mammograms startin g between [...] who have questions please contact the health long term care social worker that requested your imaging first. ? Narrative 06/24/2021 4:38 PM EST EXAMINATION: MAMMO DIAGNOSTIC CAD AND MATIAS RIGHT CLINICAL HISTORY: Oval PERIPHERALLY CALC IFIED LESION MEASURING APPROX 12X13 MM/MAY REFLECT DEGENERATING FIBRODENOMA TECHNIQUE: CC, MLO, and X CCL views are obtained th e right breast. 2-D and 3- D tomosynthesis images were obtained. Comp uter aided detection was used. COMPARISON: Prior mammograms and recent CT scan FINDINGS: Calcified mass corresponds to a stable f ocal area of fat necrosis. There are stable posttreatment changes in the righ t breast. There are no suspicious findings concerning for malignancy. Nereida Barnett MD IMG MAMMO ORDERABLES documented in this encounter Visit Diagnoses Diagnosis Abnormal mammogram Abnormal mammogram, unspecified documented in this encounter Care Teams Medical Lab Technologist Relationship Specialty Start Date End Date Nereida Barnett MD PCP - General Family Medicine 06/19/[address] [place] [address] documented as of this encounter
--- OUTSIDE RECORDS SUMMARY | 2022-04-03 12:31 | XMS_ITS | Encounter Summary ---
:1935 Author Organization [facility] [place] [address] Care Team Providers Name Role Phone Nereida Barnett MD Primary Care Provider [phone] Encounter Details Date Type Department Care Team Description 11/26/2021 Office Visit General Surgery at [facility] Courtney Dill, Nipple discharge [facility] [place] [address] [facility] [phone] GENERAL SURGERY [place], [place] [address] (Wo rk) Social History Tobacco [...] PM EDT documented as of this encounter Progress Notes Courtney Dill MD - 11/26/2021 1:45 PM EDT HPI Barbara is an 86 yo female who returns to discuss abnormal breast imaging and left nipple discharge.I initially met her in May,. At that time, she had left bloody nipple discharge. She has a history of right breast cancer as noted below. History in 2020: In terms of the left breast, Barbara [...] change. Last discharge was 3-4 months ago. ?? Imaging at the time- mammogram and u/s were negative. She saw dermatology for possible pagets or eczema with plan to return for duct excision if persistent discharge. She called recently for evaluationand has bloody left discharge. Most recent imaging revealed: LEFT BREAST LESION #1 abnormal nipple with suspicious calcifications. Tissue sampling should be considered. This is not amenable to mammographic or ultrasound guided biopsy. ?? Right breast history as follows: ??Cancer of the right breast, [id number], stage IA, low grade, ER/CO positive, Her- 2/veronica negative. A. 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 C. Bilateral breast MRI 12/09/12 SUMMARY: RIGHT BREAST LESION ?1: KNOWN MALIGNANCY (BIRADS Category 6). ?Lesion type: Mass. Size: 9 x 4 x 4mm. ?Location: 1100, 8.1 (4.7)cm from the nipple (radial). ?Distance from skin: 38mm. ?Mass margins: Irregular. ?Mass shape: Lobulated. ?Enhancement pattern: Homogeneous. Kinetics: Plateau/washout. ?Recommendation: Definitive surgery. ?LEFT BREAST LESION ?1: SUSPICIOUS (BIRADS Category 4). ?Lesion type: Mass. Size: 17 x 15 x 16mm. ?Location: Retroareolar, 0cm from the nipple. ?Distance from skin: 0mm. ?Mass margins: Irregular. ?Mass shape: Lobulated. ?Enhancement pattern: Heterogeneous. Kinetics: Washout. ?Recommendation: Diagnostic ultrasound. ?Comments: 17mm lobulated mass involving and expanding the Left nipple. ?Recommend follow-up ultrasound for diagnostics. It may or may not be amenable to ultrasound guided biopsy/FNA. ?? D. Staging CXR and LFTs unremarkable ?? E. 01/05/13 - Excision of left breast lesion; Right partial mastectomy and SLN bx. 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 ?Tumor Size: 7 mm (papilloma size) ?Resection Margins (RM): Margin Status: Involved(Involved,Uninvolved) ?Distance, nearest RM(s): At the cauterized yellow RM (A3), adjacent to skin.See Comment Specimen (s): ?B - Right partial mastectomy C - Right axillary sentinel node ?Histologic Type: Invasive ductal carcinoma ?Tumor Grade: Low ?Mvaqds-Xtkle-Xwnumuteks Score: 5 Tubular Differentiation: 2 Mitotic Rate: 1 Nuclear Grade: 2 ?Tumor Size: 0.7 cm (maximum diameter) ?In Situ Histologic Type: Not identified (present in the core bx [id number]) ?Microcalcifications: Not identified ?Angiolymphatic Invasion: Not identified ?Perineural invasion: Not identified ?Nipple involvement: N/A ?Skin/Skeletal muscle invasion: N/A ?Other Findings: 1 - Atypical ductal hyperplasia 2 - Atypical lobular hyperplasia 3 - Healing biopsy site ?Resection Margins (RM): Invasive Ca: Uninvolved(involved/uninvolved) ?Distance from closest RM(s): <??0.1 cm to nearest yellow inked RM (B2) ?Axillary lymph nodes: ?Total no. nodes sampled: 1 ?No. non-sentinel nodes: 0 ?No. positive for carcinoma: NA ?No. sentinel nodes: 1 ?No. with metastases 0.02 cm or less (isolated tumor cells) 0 ?No. with metastases >0.02 cm to 0.2 cm (micrometastases) 0 ?No. with metastases >0.2 cm (macrometastases) 0 ?Total no. nodes negative for carcinoma: 1 ?pTNM: pT1b N0 (AJCC, 7th edition, 2010) F. Adjuvant radiation therapy completed 03/31/13. G. 04/07/13 - started femara; completed 5 years in 03/2018 Barbraa is feeling well overall. She has mild sob with exertion but no chest pain. + arthralgias. No recent weight loss, abdominal pains, history of easy bleeding but does bruise easily. No difficulty withanesthesia. She does have a pace maker. ? SH: . 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 Has children and grandchildren ?? Past Medical History Past Medical History: Diagnosis Date ??? Breast cancer ? Cancer ? Hypertension ? Idiopathic thrombocytopenia. ? Objective: Physical Exam Constitutional: Appearance: Normal appearance. Cardiovascular: Rate and Rhythm: Normal rate and regular rhythm. Pulmonary: Effort: Pulmonary effort is normal. Breath sounds: Normal breath sounds. Chest: Breasts: Right: No nipple discharge. Left: there is an open area at 6:00 on the nipple and the nipple is dark in color and appears engorged. No discharge currently. Musculoskeletal: Normal range of motion. Lymphadenopathy: Upper Body: Right upper body: No axillary adenopathy. Left upper body: No axillary adenopathy. Neurological: General: No focal deficit present. Mental Status: She is alert. Psychiatric: Mood and Affect: Mood normal. ?? Imaging: as in hpi. I have reviewed mammogram and u/s ?? Assessment and Plan: ?? Barbara is an 86 yo female with a history of right breast cancer now with persistent, intermittent spontaneous bloody nipple discharge of the left nipple. She also has mammographic findings concerning for DCIS vs early IDC. GIven her symptoms and the mammogram, we discussed excisional biopsy. I offered Barbara options- to fully excise the calcs, central lumpectomy with nipple excision is required. While we could sample the calcs and leave the nipple intact, this may not alleviate all symptoms and if a malignancy is identified, we will need to perform a second operation. Barbara is very comfortable with excision of the nipple and would like to avoid a second operation if possible. Plan diagnostic and therapeutic partial mastectomy to include the NAC. Risk of bleeding and infection discussed. Will plan cancer operation with aim of clearing margins if necessary but Barbara understands re-excision remains a risk. Plan to proceed. documented in this encounter Plan of Treatment Upcoming Encounters Date Type Specialty Care Team Description 04/06/2022 Appointment Pulmonology 04/06/2022 Office Visit Pulmonology Matt Watson MD [facility] PULMONARY [place], [place] [address] (Wo rk) documented as of this encounter Visit Diagnoses Diagnosis Nipple discharge Other sign and symptom in breast documented in this encounter Care Teams Look Out Tower Fire Watcher Relationship Specialty Start Date End Date Nereida Barnett MD PCP - General Family Medicine 06/19/[address] [place] [address] documented as of this encounter
--- OUTSIDE RECORDS SUMMARY | 2022-04-03 12:31 | XMS_ITS | Encounter Summary ---
:1935 [place] [address] Care Team Providers Name Role Phone Nereida Barnett MD Primary Care Provider [phone] Encounter Details Date Type Department Care Team Description 12/22/2021 Anesthesia Event Main Operating Room Braden Miller MD [facility] [place] [address] [facility] Irlanda Calderón MD [facility] [place] [address] [place] [address] Anesthesia Record Procedure Summary Procedure Name Responsible Anesthesia Start Anesthesia Stop Anesthesiologist Time Time MASTECTOMY PARTIAL Braden Garces MD 12/22/21 0720 12/22 0818 (WRVU 10.13) (Left Breast) Events Date Time Event Comment 12/22/2021 0702 0720 Start 0725 AN Verify 0725 An Start Data 0730 An Induction 0731 An Intubation 0732 Anesthesia Ready 0807 an arina now 0807 Quick Note Magnet removed 0810 Extubation/LMA Out 0812 an stop data 0818 Recovery or ICU Handoff Patient care was transferred to the destination unit staff after review of the patient's medica l history, current anesthetic/surgi jose status and plan, according to the Provider Handoff Checklist. 0818 Stop EP paged re inte rrogation for PM. According to EP, if patien t is remotely monitored, pt does not need to be interrogated unless there is concern. This information passed along to RN. Will ask pat ient remote monitor status when awake. Name Total Propofol 100 mg Propofol INF 79.2 mg Dexamethasone 8 mg Ondansetron 8 mg Dexmedetomidine 20 mcg ceFAZolin 2 g ketorolac (Toradol) (30 mg/mL) injection 15 mg lactated ringers infusion 500 mL Agents Name O2 Air N2O Sevoflurane (et) Blood No blood administrations on file. Lines, Drains, and Airways Type Details Placement Removal Incision 12/22/21; 0741; Left; 12/22/21 0741 by Cata breast Jocelyn Rivas RN Incision 06/04/16; 1404; chest; 06/04/16 1404 by 01/26/22 1715 by 01/26/22 (LDA cleanup MacvicarJoseph RN Jenna er, Dierdre L utility RA#[id number]); 1715 (LDA cleanup utility RA#[id number]) PIV 12/22/21; 0655; cephalic 12/22/21 0655 by Talha, 12/22/21 0946 by vein (lateral side of BLAS Jackson Bri ttany A, RN arm), right; ayct-yjv-repboy catheter system; Anatomical Landmarks; US Not Used; 20 gauge; Sage Roth RN; intradermal injection, tolerated well, appears comfortable; 12/22/21; 0946 Supraglottic Mask Ventilation: Easy 12/22/21 0731 by 12/22/21 0810 by (1); LMA Type: iGel; LMA Khloe Harrington, Khloe Askew, Size: 3; Inserted by: CHARO Harrington CRNA documented in this encounter Social History Tobacco Use Types Packs/Day Years [...] PM EDT documented as of this encounter OR Notes Anesthesia Postprocedure Evaluation - Braden Garces MD - 12/22/2021 8:52 AM EDT Department of Anesthesiology Post-procedure Note Patient: Barbara Casarez Procedure Summary Date: 12/22/21 Room / Location: [address] MAIN OR Anesthesia Start: 719 Anesthesia Stop: 817 Procedure: MASTECTOMY PARTIAL (WRVU 10.13) (Left Breast) Diagnosis: (BLODDY DISCHARGE) Surgeons: Courtney Dill MD Responsible Provider: Braden Garces MD Anesthesia Type: general ASA Status: 3 All Anesthesia Providers: Anesthesiologist: Braden Garces MD ORACLE APPLICATION CONSULTANT: Khloe Harrington CRNA Vitals Value Taken Time BP 117/63 12/22/21 0845 Temp 36.7 ??C (98.1 ??F) 12/22/21 0815 Pulse 61 12/22/21 0851 Resp 21 12/22/21 0851 SpO2 93 % 12/22/21 0851 Pain Level 0 12/22/21 0819 Vitals shown include unvalidated device data. Patient Location: PACU/[facility] Level of Consciousness: Awake and Alert Pain Management: Satisfactory Analgesia PONV: None Cardiovascular Status: At Baseline and Hemodynamically Stable Respiratory Status: Supplemental O2 (NC or FM) Postoperative Fluid Status: Intravascular EUvolemia Possible Anesthetic Complications: NONE apparent at time of evaluation Final Primary Anesthesia Type: General (The anesthetic type performed was the same as planned.) Comments: BRADEN GARCES MD Anesthesia Preprocedure Evaluation - Braden Garces MD - 12/21/2021 2:42 PM EDT Images from the original note were not included. Pre-Anesthesia Evaluation for: Barbara Casarez a 86 y.o. female. Procedure(s): MASTECTOMY PARTIAL (WRVU 10.13) Patient Active Problem List Diagnosis Date Noted ??? Acquired complete AV block 06/04/2016 ??? Actinic keratosis 10/31/2015 ??? ST elevation (STEMI) myocardial infarction involving left anterior descending coronary artery 04/23/2015 ??? Acute systolic congestive heart failure 04/23/2015 ??? PAF (paroxysmal atrial fibrillation) 04/23/2015 ??? Idiopathic thrombocytopenic purpura 09/14/2014 ??? Breast cancer 12/21/2012 Past Medical History: Diagnosis Date ??? Breast cancer ??? Cancer ??? Hypertension Past Surgical History: Procedure Laterality Date ??? BREAST BIOPSY Left 07/2003 ??? BREAST BIOPSY Right 12/2012 ??? BREAST CYST EXCISION Left 12/2012 ??? BREAST LUMPECTOMY Right 12/2012 ??? PRO BX/REMV, LYMPH NODE, DEEP AXILL 01/05/2013 BIOPSY OR EXCISION OF LYMPH NODE(S), OPEN, DEEP AXILLARY NODE(S) performed by Yakov Beck MD at [facility] MAIN OR ??? PRO INJ RADIOACTIVE TRACER FOR ID OF SENTINEL NODE 01/05/2013 SENTINEL NODE INJECTION performed by Yakov Beck MD at [facility] MAIN OR ??? PRO MASTECTOMY PARTIAL 01/05/2013 MASTECTOMY PARTIAL performed by Yakov Beck MD at [facility] OR ??? PRO REMOVAL OF BREAST LESION 01/05/2013 EXCISION CYST, FIBROADENOMA, ABBERANT BREAST TISSUE,DUCT LESION,NIPPLE OR AREOLAR LESION (LUMPECTOMY) performed by Yakov Beck MD at [facility] MAIN OR Social History Tobacco Use ??? Smoking status: Never Smoker ??? Smokeless tobacco: Never Used Substance Use Topics ??? Alcohol use: Yes Comment: occasional Social History Substance and Sexual Activity Drug Use No Allergies Allergen Reactions ??? Celebrex [Celecoxib] Other (See Comments) Hypotension, tachycardia per patient ??? Norvasc [Amlodipine] Other (See Comments) Causes edema to lower extremities Medications: MAR and/or home medications have been reviewed. Physical Exam: Preprocedure Vitals Current as of 12/21/21 1442 No BP, pulse, respiration, SpO2, or temperature recorded. Height: Weight: BMI: IBW: 39.1 kg (86 lb 3.6 oz) Airway Assessment: Mallampati: II TM distance: >3 FB Neck ROM: full Cardiovascular Assessment: Rhythm: regular Pulmonary Assessment: unlabored breathing Dental Assessment: Misc Assessment: Patient is wearing No contact(s). IV access: Peripheral line Other exam findings: LABS Lab Results Component Value Date WBC 10.5 (H) 06/04/2016 HGB 13.7 06/04/2016 HCT 43.8 06/04/2016 MCV 90.3 06/04/2016 PLATELET 141 (L) 06/04/2016 Lab Results Component Value Date NA 146 (H) 06/04/2016 K 3.8 06/04/2016 CL 105 06/04/2016 CO2 25 06/04/2016 BUN 19 (H) 06/04/2016 CREATININE 0.89 06/04/2016 GLUCOSE 100 06/04/2016 GLUCFASTING 151 (H) 04/24/2015 CALCIUM 9.2 06/04/2016 Lab Results Component Value Date ALT 16 04/23/2015 ALT 17 04/23/2015 AST 55 (H) 04/23/2015 AST 54 (H) 04/23/2015 ALKPHOS 61 04/23/2015 ALKPHOS 59 04/23/2015 BILITOT 0.6 04/23/2015 BILITOT 0.7 04/23/2015 BILIDIR 0.2 04/23/2015 BILIDIR 0.1 04/23/2015 ALBUMIN 3.3 04/23/2015 ALBUMIN 3.2 04/23/2015 PROT 4.9 (L) 04/23/2015 PROT 5.2 (L) 04/23/2015 Lab Results Component Value Date HA1C 6.0 (H) 04/24/2015 Lab Results Component Value Date INR 1.0 06/04/2016 Lab Results Component Value Date PTT >160.0 (CRIT) 04/23/2015 CrCl cannot be calculated (Patient's most recent lab result is older than the maximum 30 days allowed.). Last Filed Perioperative Cognitive Screening None Anesthesia Plan: ASA 3 general, with a(n) intravenous induction 86 y.o. year-old female with breast cancer, here for left partial mastectomy. MEDICAL HISTORY is also significant for: Complete heart block s/p DDDR pacemaker placement in 2017 HTN - multiple meds, nl BP 140-160 systolic, 70 diastolic per pt Thrombocytopenia - dx 08/2012, seen by Heme here, no intervention or w/u, just following as long as greater than 70K(presumptive dx chronic ITP) RAD? - given albuterol inhaler by PCP last winter during episode URI/bronchitis Negative for symptoms of GERD ANESTHESIA HISTORY: Past GA without significant complications, LMA4 in 2012 EKG 2017: AV dissociation with junctional escape rhythm and ST/T wave changes in lateral leads TTE 2016: Normal LV and RV systolic function. Gr2 diastolic dysfx LV. Mildly dilated ascending aorta. No significant valve abn. ANESTHETIC PLAN - Pacemaker and underlying complete heart block: EKG in the am. Device does not appear to be followed up here (no interrogation notes since 2017). Based on placement note from 2017 there does not appear to be a defibrillator function. Assuming nothing has changed since then, will place magnet over device and request EP interrogation in PACU. - GA, ETT/LMA - Multimodal analgesia and PONV prophylaxis Region - Other Informed Consent: Anesthetic plan and risks discussed with patient. Use of blood products discussed with patient who. Plan discussed with ORACLE APPLICATION CONSULTANT. Anesthesia Screening documented in this encounter Plan of Treatment Upcoming Encounters Date Type Specialty Care Team Description 04/06/2022 Appointment Pulmonology 04/06/2022 Office Visit Pulmonology Matt Watson MD [facility] PULMONARY [place] Pat[place], [place] [address] (Wo rk) documented as of this encounter Visit Diagnoses Not on filedocumented in this encounter Administered Medications Inactive Administered Medications - up to 3 most recent administrations Medication Order MAR Action Action Date Dose Rate Site ceFAZolin (Ancef) 1 g in dextrose 5% Given 12/22/2021 7:34 AM ED T 2 g 50 mL infusion Intravenous, PRN, Starting on Wed12/22/21 at 0734, Until Wed12/22/21 at 0818, Administer over 30 Minutes, Anesthesia Intra-op dexAMETHasone (Decadron) injection Given 12/22/2021 7:34 AM EDT 8 mg Intravenous, PRN, Starting on Wed12/22/21 at 0734, Until Wed12/22/21 at 0818, Anesthesia Intra-op, Routine dexmedeTOMIDine (Precedex) (4 mcg/mL) bolus Given 12/22/2021 7:3 9 AM EDT 4 mcg injection (Anesthsia) Intravenous, PRN, Starting on Wed12/22/21 at 0730, Until Wed12/22/21 at 0818, Anesthesia Intra-op, Routine Given 12/22/2021 7:34 AM EDT 8 mcg Given 12/22/2021 7:30 AM EDT 8 mcg ketorolac (Toradol) (30 mg/mL) injection Given 12/22/2021 8:06 AM EDT 15 mg Intravenous, PRN, Starting on Wed12/22/21 at 0806, Until Wed12/22/21 at 0818, Anesthesia Intra-op, Routine lactated ringers infusion New Bag 12/22/2021 7:21 AM EDT 1,000 mL, at 100 mL/hr, Intravenous, CONTINUOUS, Starting on Wed12/22/21 at 0700, Until Wed12/22/21 at 0940, Day of Surgery (Day of Procedure) ondansetron (pf) (Zofran) (2 mg/mL) inje ction Given 12/22/2021 7:47 AM EDT 4 mg Intravenous, PRN, Starting on Wed12/22/21 at 0734, Until Wed12/22/21 at 0818, Anesthesia Intra-op, Routine Given 12/22/2021 7:34 AM EDT 4 mg propofoL (Diprivan) (10 mg/mL) New Bag 12/22/2021 7:31 AM 30 m cg/kg/min 14.85 mL/hr infusion EDT Intravenous, CONTINUOUS PRN, Starting on Wed12/22/21 at 0731, Until Wed12/22/21 at 0818, Anesthesia Intra-op, Routine propofoL (Diprivan) 10 mg/mL bolus injection Given 7:30 AM EDT 100 mg (Anesthesia) Intravenous, PRN, Starting on Wed12/22/21 at 0730, Until Wed12/22/21 at 0818, Anesthesia Intra-op documented in this encounter Care Teams Food Service Specialist Relationship Specialty Start Date End Date Nereida Barnett MD PCP - General Family Medicine 06/19/[address] [place] [address] (work) documented as of this encounter
--- OUTSIDE RECORDS SUMMARY | 2022-04-03 12:31 | XMS_ITS | Encounter Summary ---
:1935 Author Organization [facility] [place] [address] Care Team Providers Name Role Phone None Primary Care Provider Unavailable Encounter Details Date Type Department Care Team Description 06/06/2020 Orders Only General Surgery at [facility] Courtney Dill, Nipple discharge [facility] [place] [address] [place] [address] GENERAL SURGERY [place], [place] [address] (Wo rk) Social History Tobacco [...] 04/06/2022 Office Visit Pulmonology Matt Watson MD [facility] PULMONARY [place] Pat[place], [place] [address] (Wo rk) documented as of this encounter Results Mammo Diagnostic Cad and Matias Left (06/06/2020 11:36 AM EST) Anatomical Region Laterality Modality Breast [...] ? Electronically signed by: Flora childress MD, [facility] ([phone]), at 06/06/2020 11:48 AM Narrative 06/06/2020 11:48 AM EST EXAMINATION: MAMMO DIAGNOSTIC CAD AND MATIAS LEFT, US ??BREAST LIMITED LEFT CLINICAL HISTORY: [...] breast documented in this encounter Care Teams Access Tech Relationship Specialty Start Date End Date None PCP - General 06/06/20 06/18/21 None documented as of this encounter
--- OUTSIDE RECORDS SUMMARY | 2022-04-03 12:31 | XMS_ITS | Encounter Summary ---
:1935 Author Organization [facility] [place] [address] Care Team Providers Name Role Phone Nereida Barnett MD Primary Care Provider [phone] Encounter Details Date Type Department Care Team Description 01/08/2022 [place] [facility] [place] Xochitl Lainez [facility] [place] [address] Social History Tobacco Use Types Packs/Day Years [...] 04/06/2022 Office Visit Pulmonology Matt Watson MD [facility] DR ANEESH Patel [place], [place] [address] (Wo rk) documented as of this encounter Visit Diagnoses Not on filedocumented in this encounter Care Teams Client Relation Specialist Relationship Specialty Start Date End Date Nereida Barnett MD PCP - General Family Medicine 06/19/[address] [place] [address] documented as of this encounter
--- OUTSIDE RECORDS SUMMARY | 2022-04-03 12:31 | XMS_ITS | Encounter Summary ---
:1935 Author Organization [facility] [place] [address] Care Team Providers Name Role Phone Nereida Barnett MD Primary Care Provider [phone] Encounter Details Date Type Department Care Team Description 12/29/2021 Hospital Encounter [place] [facility] [place]ora Curry [facility] [place] [address] [facility] [phone] DR DIAGNOSTIC RADIOLOGY [place], [place] [address] (Wo rk) Social History Tobacco Use Types [...] Visit Pulmonology Matt Watson MD [facility] ER PULMONARY [place], [place] [address] (Wo rk) documented as of this encounter Procedures Procedure Name Priority Date/Time Associated Comments Diagnosis MAMMO BREAST Routine 12/29/2021 2:10 PM Results f or this PATHOLOGY LUMPECTOMY EDT procedu re are in the results section. documented in this encounter Results MAMMO BREAST PATHOLOGY LUMPECTOMY (12/29/2021 2:10 PM EDT) Specimen (Source) Anatomical Location Collection Method / Collectio n Time Received Time / Laterality Volume Narrative Dicom, Auditing User - 12/29/2021 2:10 P M EDT This exam is auto-finalizing. No interpr etation was done. Flora Curry MD IMG MAMMO ORDERABLES documented in this encounter Visit Diagnoses Not on filedocumented in this encounter Care Teams Copyist Relationship Specialty Start Date End Date Nereida Barnett MD PCP - General Family Medicine 06/19/[address] [place] [address] documented as of this encounter
--- OUTSIDE RECORDS SUMMARY | 2022-04-03 12:31 | XMS_ITS | Encounter Summary ---
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 Courtney Mariscal [place] [facility] [place] [address] [place] [address] [place] [address] [place] [address] Referral ID Status Reason Start Date Expiration Visits Visits Date Requested Authorized [id number] Authorized Consult, 01/08/2022 01/08/2023 1 1 Test & Treat Encounter Details Date Type Department Care Team Description 01/08/2022 Orders Only General Surgery [place] [facility] [place] L[place] portion of left breast [facility] [place] [address] GENERAL SURGERY [phone] [place], [place] [address] Social History Tobacco Use Types [...] Visit Pulmonology Matt Watson MD [facility] PULMON[facility] [place], [place] [address] (Wo rk) Scheduled Referrals Name Type Priority Associated Order Schedule Diagnoses Referral to Outpatient Referral Routine Cancer of central Ord ered: Pulmonology portion of left 01/08/2022 breast documented as of this encounter Visit Diagnoses Diagnosis 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
--- OUTSIDE RECORDS SUMMARY | 2022-04-03 12:31 | XMS_ITS | Encounter Summary ---
:1935 Author Organization [facility] [place] [address] Care Team Providers Name Role Phone Matt Mcdonnell DO Primary Care Provider Reason for Visit Reason Onset Date Comments Follow-up 11/21/2018 Encounter Details Date Type Department Care Team Description 11/21/2018 Telephone Hematology/Oncology at Aleah Barrett RN Follow-up [place] [phone] Social History Tobacco Use Types Packs/Day Years [...] PM EDT documented as of this encounter Miscellaneous Notes Telephone Encounter - Aleah Figueroa RN - 11/21/2018 12:26 PM EDT Left message for Barbara on her home phone that her mammo was negative. She can call with any concerns or questions. documented in this encounter Plan of Treatment Upcoming Encounters Date Type Specialty Care Team Description 04/06/2022 Appointment Pulmonology 04/06/2022 Office Visit Pulmonology Matt Watson MD [facility] ER PULMONARY [place] Pat[place], [place] [address] (Wo rk) documented as of this encounter Visit Diagnoses Not on filedocumented in this encounter Care Teams Civil Structural Designer Relationship Specialty Start Date End Date Matt Mcdonnell DO PCP - General 11/15/12 11/29/[address] [place] [id number] documented as of this encounter
--- OUTSIDE RECORDS SUMMARY | 2022-04-03 12:31 | XMS_ITS | Encounter Summary ---
:1935 Author Organization [facility] [place] [address] Care Team Providers Name Role Phone Nereida Barnett MD Primary Care Provider [phone] Encounter Details Date Type Department Care Team Description 12/22/2021 Surgery Main Operating Room [facility]imitrios [facility]ill [facility]WRVU 10.13) [facility] [place] [address] [place] [address] [phone] (Wo rk) Social History Tobacco Use Types [...] Sign Reading Time Taken Comments Blood Pressure 148/72 12/22/2021 9:15 AM EDT Pulse 60 12/22/2021 9:00 AM EDT Temperature 36.7 ??C (98.1 ??F) 12/22/2021 8:15 AM EDT Respiratory Rate 16 12/22/2021 9:15 AM EDT Oxygen Saturation 91% 12/22/2021 9:15 AM EDT Inhaled Oxygen Concentration - - Weight 82.5 kg (181 lb 14.4 oz) 12/22/2021 6:19 AM EDT Height 149.9 cm (4' 11) 12/22/2021 6:19 AM EDT Body Mass Index 36.74 12/22/2021 6:19 AM EDT documented in this encounter Discharge Instructions Discharge InstructionsMeena Roth RN - 12/22/2021 7:06 AM EDT Okay to shower 24 hours Activity as tolerated Call [phone] with any questions Do not soak incision for 2 weeks Will call with pathology results when available Ice pack to breast as needed Okay to use tylenol and/or ibuprofen as needed for pain Next dose of acetaminophen (tylenol) can be taken at 1245pm. Next dose of ibuprofen (motrin) can be taken at 2pm. (Recommend taking 650 mg of tylenol and 400 mg ibuprofen every 6 hours as needed) Wear bra for comfort (you may want to wear 21/12 until swelling improves) May resume eliquis in 48 hours documented in this encounter Medications at Time of Discharge [...] 02/25/2010 tablet documented as of this encounter Progress Notes Eva Werner APRN - 12/22/2021 9:01 AM EDT Cardiac Device Interrogation Barbara Casarez [id number] 12/22/2021 History: 86 yo female with history of complete heart block s/p dual chamber pacemaker implant (Medtronic) who is immediately s/p mastectomy and EP is asked to interrogate pacemaker post-magnet application. There was no concern for the pacemaker function post-magnet application, and she is hemodynamically stable. She is followed at [facility] for her device, but does not have remote monitoring, per [place] nurse. Device interrogated, patient in atrial fibrillation, takes Eliquis that is very expensive for her. Recommended that she ask her PCP or device clinic for coupons or alternate medication for anticoagulation. Patient states she has remote monitoring in place. Device Interrogation: Data Generator: [employer] Codie DEMPSEY [id number], Serial Number: [id number] - left-sided implant 04-Jun-2016 RA Lead: Medtronic 5076 CapsureFix Novus MRI, serial [id number] RV Lead: Medtronic 5076 CapsureFix Novus MRI, serial [id number] Alerts 113 days with more than 6 hr AT/AF. Diagnostics Pacing Mode: DDDR 60-120 bpm Presenting EGMs: , AR/MILL WASHER Underlying Rhythm: atrial fibrillation 60 bpm Atrial Episodes: 1 AT/AF, 100% AF Ventricular Episodes: 0 Atrial Pacin.2% Ventricular Pacin.9% HR Histogram: right shifted atrial graph, left shifted ventricular graph Battery and Leads Voltage: 2.95 V Status: ~2 years Magnet Rate: 85 bpm Charge Time: ---sec Impedances (ohms) Sensing (mV) Thresholds HV RA RV LV RA RV LV RA RV LV --- [phone] --- 0.6 paced --- AFIB 0.75 V @ 0.4 ms --- Comments: - Pocket incision is well healed without signs or symptoms of infection - Device is functioning appropriately - Programming changes ?? None, Iterative changes made for testing purposes only - Follow up: in her usual device clinic in [place], has remote monitoring. Note sent to her domestic laundry worker Dr. Coyne. Eva Werner APRN 12/22/2021 Pager: [phone] documented in this encounter H&P Notes Dimitrios Dill MD - 12/22/2021 7:05 AM EDT No changes in health. Stable for central lumpectomy. Source Note - Dimitrios Dill MD - 11/26/2021 1:45 PM EDT CANDY Jimenez is an 86 yo female who returns [...] as follows: ??Cancer of the right breast, [id number], stage IA, low grade, ER/CO positive, Her- 2/veronica negative. A. Screening mammogram 6/18/13 - left breast negative. Right breast indeterminate [...] Type: Invasive ductal carcinoma ?Tumor Grade: Low ?Rgfhbj-Kwgyn-Nowdgyvlbo Score: 5 Tubular Differentiation: 2 Mitotic Rate: 1 Nuclear Grade: 2 ?Tumor Size: 0.7 cm (maximum diameter) ?In Situ Histologic Type: Not identified (present in the core bx [id number]) ?Microcalcifications: Not identified ?Angiolymphatic Invasion: Not identified [...] started femara; completed 5 years in 03/2018 Barbara is feeling well overall. She has mild [...] Plan to proceed. documented in this encounter Miscellaneous Notes Op Note - Dimitrios Dill MD - 12/22/2021 7:41 AM EDT [facility] Operative Note Patient Name: Barbara Casarez : [id number] MR#: [id number] Case Date: 12/22/2021 Surgeon: Surgeon(s) and Role: * Dimitrios Dill MD - Primary Preoperative diagnosis: BLODDY DISCHARGE left nipple Postoperative diagnosis: BLODDY DISCHARGE Procedure(s) (LRB): MASTECTOMY PARTIAL (WRVU 10.13) (Left) Anesthesia: General Estimated Blood Loss: 14 mL Specimens removed during surgery: Order Name Source Comment Collection Info Order Time SPECIMEN TO PATHOLOGY NIPPLE DISCHARGE left partial mastectomy excision Yes 12/22/2021 8:10 AM Time specimen removed from patient: 7:50 AM Number of tissue samples (in container) 1 Time placed in fixative: 7:55 AM Drains: * No LDAs found * Surgical Closure: Primary Closure - skin incision is completely closed without any wires, reggie, drains or other devices Disposition: awakened from anesthesia, extubated and taken to the recovery room in a stable condition, having suffered no apparent untoward event. Condition: doing well without problems (Please see the Surgical Encounter Summary for any Implant and Specimen details pertinent to this patient.) HPI/Surgical Indications: Barbara is an 86 yo female with left breast nipple discharge with papilloma and possible breast cancer. Plan partial mastectomy for diagnosis and definitive therapy. Procedure Description: Operative Procedure: Barbara was admitted through Same-Day Surgery. She was brought to the Operating Room and laid supine on the operating table. Sedatives were administered intravenously and an LMA was placed. The left breast was prepped and draped in sterile fashion. Time-out confirmed the patient's identity, the correct surgical site, and the administration of prophylactic antibiotics. Once the time out had been confirmed, attention was turned to the breast. After injection of local anesthesia, I made an elliptical incision inclusive of the nipple areolar complex in a horizontal fashion. I widely excised the retroareolar breast tissue and sent this en bloc to pathology. The wound was irrigated and hemostasis achieved. Biopsy cavity clips were placed. Partial breast reconstruction was undertaken, and the wound was closed in layers. Sterile dressings were applied. Surgical Infection Prevention Bundle Used? N/A Attestation: Case Date: 12/22/2021 I performed this procedure without the involvement of a resident. DIMITRIOS DILL MD 12/22/2021 documented in this encounter Plan of Treatment Upcoming Encounters Date Type Specialty Care Team Description 04/06/2022 Appointment Pulmonology 04/06/2022 Office Visit Pulmonology Matt Watson MD [facility] [place], [place] [address] (Wo rk) documented as of this encounter Procedures Procedure Name Priority Date/Time Associated Comments Diagnosis SURGICAL PATHOLOGY Routine 12/22/2021 8:10 AM Res ults for this REPORT EDT procedure are i n the results section. SPECIMEN TO Routine 12/22/2021 8:10 AM Results f or this PATHOLOGY EDT procedure are i n the results section. MASTECTOMY PARTIAL 12/22/2021 7:24 AM BLODDY DISCHARGE (WRVU 10.13) EDT EKG 12-LEAD Routine 12/22/2021 7:21 AM Acquired complete Resu lts for this EDT AV block procedure are i n the results section. documented in this encounter Results Surgical Pathology Report (12/22/2021 8:10 AM EDT) Component Value Ref Test Analysis Performed At [facility] Method Time Signature Surgical [id number] ? Location: [facility]; [facility]; [facility] Report The signing pathologist has (i) examined the relevant preparation(s) for the MEMORIAL specimen(s) and (ii) rendered or confirmed the diagnosis(es) . HOSPITAL LABORATORY . ? Addendum ADDENDUM DISCUSSION Immunohistochemistry Studies Specimen: Left breast, partial mastectomy (A9) ER immunoreactivity: Positive (>90% cancer cells with immuno staining) Stain intensity: Strong CO immunoreactivity: Positive (>90% cancer cells with immuno staining) Stain intensity: Strong HER2 immunoreactivity: Negative (score 0) ? *Diagnostic ellison for hormone receptors (ASCO/CAP GUIDELINES, 2020): ?Negative immunoreactivity: <1% tumor cells with immuno staining ?Positive immunoreactivity: >=1% tumor cells with immun ostaining ??Low Positive: 1-10% tumor cells with immunostaining* *There are limited data on t he overall benefit of endocrine therapies for patients with low level (1-10%) ER e xpression, but they currently suggest possible benefit, so patients are considered eligible for endocrine treatment. There are data that suggest invasive cancers wi th these results are heterogeneous in both behavior and biology and often have gene expression profiles more similar to ER-negative cancers. [id number] Overexpression Assessment ?------- ?----- Interpretation ?Score ?Criteria ?------- ?----- Negative ?(0) ?No staining observe d or membrane ? staining that is incomplete and is ? faint/barely perceptible and within ?10% ? of tumor cells Negative ?(1+) ? Incomplete mem brane staining that is ? faint/barely perceptible and within >10% ? of tumor cells Equivocal ? (2+ ) ? Weak to moderate complete membrane staining ? observed within >10% of tumor cells Positive ?(3+) ? Circumferential membrane staining that ? is complete, intense, and within >10% of ? tumor cells Diagnostic categories have b een adjusted to reflect treatment guidelines (ASCO/CAP guidelines 2018) Immunohistochemical assays w ere performed on paraffin-embedded tissue sections fixed in 10% neutral buffered for prem for 6-72 hours using the polymer system technique with appropriate positive a nd negative controls. The assays were performed according . ADDENDUM DISCUSSION to the breakfast and room attendant ' s ins tructions using Anti-ER (SP1), Anti-CO (16), and Anti-HER2 (4B5) antibodies. These tests were developed and their per formance characteristics determined by [facility]. They may not have been cleared or approved by the US Food and Drug Adm inistration. The FDA does not require such tests to go through premarket FDA revie w. These tests are used for clinical purposes and should not be regarded as investig ational or for research. This laboratory is certified under the Clinical Laborato ry Improvement Amendments (CLIA) as qualified to perform high complexity clinical laboratory testing. Electronically signed by: ?Arpit Burgess MD Verified: ??12/26/2021 8:20 ?? Pathologist Performed at: ??-[facility] Dept. 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 of Pathology, [place], [place] SYNOPTIC Specimen ? Procedure: ??Excision (less than total mastecto my) ? Specimen Laterality: ??Left Tumor ? Histologic Type: ??Invasive ductal carcinoma ? Histologic Grade ([place] Histologic Score): ?Glandular (Acinar) / Tubular Differentiati on: ??Score 3 ?Nuclear Pleomorphism: ??Score 1 ?Mitotic Rate: ??Score 1 ?Overall Grade: ??Grade 1 (scores of 3, 4 o r 5) ? Tumor Size: ??3 Millimeters (mm) ? Ductal Carcinom a In Situ (DCIS): ??Present - Positive for extensive ?intraductal component (EIC) ?Size (Extent) of DCIS: ??14 Millimeters (m m) ?Architectu ral Patterns: ??Paget disease (DCIS involving nipple skin); ? Cribriform; ??Solid papillary; involving a papilloma; ?Nuclear Grade: ??Grade I (low) ?Necrosis: ??Not identified ? 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 Lymphovascular Invasion: ??Not identified ? Microcalcifications: ??Present in DCIS ? Treatment Effect in the Breast: ??No known pr esurgical therapy Margins ? Margin Status f or Invasive Carcinoma: ??All margins negative for invasive ?carcinoma ?Distance f rom Invasive Carcinoma to Closest Margin: ??All margins >5 mm ? Margin Status for DCIS: ??All margins negative for DCIS ?Distance from DCIS to Closest Margin: ?? Greater than 5 mm ?Closest Margin(s) to DCIS: ??All margins Regional Lymph Nodes ? Regional Lymph Node Status: ??Not applicable (no regional lymph nodes ?submitted or found) Pathologic Stage Classification (pTNM, AJCC 8th Edition) ? pT Category: ??pT1a . SYNOPTIC ? pN Category: ??pN not assigned (no nodes submit doreen or found) Best Tumor Blocks for Future Studies ? Tumor Block(s): ??A9 ? CAP eCC 2021 Q1 Release DISCUSSION Sections show an intraductal papilloma w ithin the nipple, which is extensively involved by low grade ducta l carcinoma in-situ (DCIS). A few clusters of DCIS cells are present within the squa mous epithelium of the nipple, consistent with focal Paget disease. Immediately adjacent to the papilloma is a 3 mm focus of invasive carcinoma, confirmed by an absent myoepithelial cell layer on immunohistochemical studies. There are also sca ttered small atypical glands adjacent to the papilloma in other areas - the possibili ty of additional foci of microinvasion cannot be entirely excluded. Studies for ER, CO, and HER2 have been ordered; result s will be issued in an addendum. ADDITIONAL STUDIES Immunohistochemistry Studies: Formalin-fixed, paraffin-emb edded tissue sections are studied using the polymer technique with appropriate positive and negative controls. ?These IHC studies provide the pathologist wit h adjunctive diagnostic information. Antibody specificity has been verified by testin g antibodies on a series of in-house tissues with known immunohistochemical perform ance characteristics. The clinical interpretation of any antibody positive stain ing or its absence is evaluated within the context of clinical presentation, morp hology, histopathological criteria and other diagnostic tests. Block ? Antibody ?Result (Positive /Negative) A9 ? Calponin ? Negative for myoep ithelial cells A9 ? p63 ?Neg ative for myoepithelial cells SPECIMEN(S) SUBMITTED A - left partial mastectomy, excision (1) CLINICAL INFORMATION Nipple discharge SPECIMEN PROCESSING A - Labeled/Fixative: Left partial mastectomy, fresh. Quantity/Size/Weight: Single , medial to lateral: 9 cm; superior to inferior: 5.7 cm; anterior to posterior: 2.5 cm; 55 g. SPECIMEN DESCRIPTION Resection Specimen: Intact, partial mastectomy with a 8.2 x 3.5 rojo skin ellipse bearing an everted fleshy nipple measuring 1.2 cm in diamet er. Specimen radiograph: Not available. Specimen Description: Accord ing to the established protocol the ink designations are red (medial), yellow (l ateral), orange (superior), green (inferior), black (posterior) and blue (anterior). Tissue Sections: The specimen is serially sectio hemalatha perpendicular to the long axis from medial-red to lat eral-yellow into XIII slices, each averaging 0.4 cm in thickness. LESION ??Description: 1.4 x 1.2 x 1.0 cm, pink-red, papillary, friable mass, with well delineated borders. ??Location: Slices and VII, extending into the nipple. ??Nearest Margin(s): 1.1 cm, inferior-green. ??Other Margin(s): 2.2 cm, superior-orange. ??Other Margin(s): 3.9 cm, posterior-black. ??Other Margin(s): >2 cm, medial-red. . SPECIMEN PROCESSING ??Other Margin(s): >2 cm, lateral-yellow. ??Wire/clip: Not present Parenchyma: Composed of 80% rojo yellow adipose tissue and 10% rojo-white rubbery fibrous tissue Sections/Processing: Trade Recruiter sections in 17 cassettes as follows: ?A1: Nipple, perpendicularly sectioned and entirely sub mitted ?A2: Slice I, outside medical sales representative perpendicular sections ?A3: Slice III, outside medical sales representative ?A4-A6: Slice V, quadrisected and entirely submitted ?A7-A8: Slice , lesio n to superior-green and inferior-orange margin, bisected ?A9: Slice VII, lesion to closest superior-green margin ?A10-A11: Slice VII, outside medical sales representative of fibrous tissue ?A12: Slice VIII, outside medical sales representative of the lesion ?A13-A15: Slice VIII, remnant entirely submitted ?A16: Slice X, outside medical sales representative ?A17: Slice XIII, perpendicular section and entirely pisano bmitted Ischemic Time: 1 hour ??op Specimen (Source) Anatomical Collection Method Collection Time Re ceived Time Location / / Volume Laterality 12/22/2021 8:10 AM EDT Dimitrios Dill MD PATHOLOGY/CYTOLOGY ORDERABLE S Performing Organization Address [facility]/[place] [address] Specimen to Pathology (12/22/2021 8:10 AM EDT) Specimen Anatomical Collection Method Collection Time Receive d Time (Source) Location / / Volume Laterality AP Specimen 12/22/2021 8:10 AM 8:10 EDT AM EDT Narrative [facility] - 12/22/2021 8:10 AM EDT Specimen requisition ordered. ??Separate Pathology report to follow Dimitrios Dill MD PATHOLOGY/CYTOLOGY ORDERABLE S Performing Organization Address City/[facility]/[place] [address] EKG 12 Lead (12/22/2021 7:21 AM EDT) Component Value Ref Range Test Analysis Performed Pathologis t Method Time At Signature Ventricular rate 64 BPM MUSE SYSTEM Atrial Rate 441 BPM MUSE SYSTEM QRS Duration 188 ms MUSE SYSTEM Q-T Interval 508 ms MUSE SYSTEM QTC Calculated 524 ms MUSE SYSTEM (Bezet) Calculated R Ensign -74 degrees MUSE SYSTEM Calculated T Ensign 96 degrees MUSE SYSTEM INTERPRETATION Ventricular-paced rhythm Occ asional Premature ventricular complexes MUSE SYSTEM Abnormal ECG When compared with ECG of 04-JUN-2016 07:56, Previous ECG has undetermined rhythm, needs review I personally reviewed the tracing and edited the fellows int erpretation Confirmed by fellow MD Raffi, Luciana ([id number]) on 12/22/2021 11:25:55 PM Confirmed by MD Alexandre, Og ([id number]) on 12/23/2021 2:28:19 PM Specimen Anatomical Collection Method Collection Time Receive d Time (Source) Location / / Volume Laterality 12/22/2021 7:21 AM 2 2:28 EDT PM EDT Leslie Francis MD ECG ORDERABLES Performing Organization Address City/State/ZIP Code Phon e Number MUSE SYSTEM documented in this encounter Visit Diagnoses Not on filedocumented in this encounter Administered Medications Inactive Administered Medications - up to 3 most recent administrations Medication Order MAR Action Action Date Dose Rate Site acetaminophen (Tylenol) tablet Given 12/22/2021 6:46 AM EDT 1,00 0 mg 1,000 mg 1,000 mg, Oral, ONCE, 1 dose, On Wed12/22/21 at 0700, Administer with SIP of H2O only. Maximum dose of acetaminophen is 4,000 mg from all sources in 24 hours., Day of Surgery (Day of Procedure), Routine acetaminophen (Tylenol) tablet 650 mg 650 mg, Oral, EVERY 4 HOURS PRN, Startin g on Wed12/22/21 at 0838, Until Wed12/22/21 at 1201, Pain, Maximum dose of acetaminophen is 4000 m g from all sources in 24 hours. When ordered for pain, acetaminop hen should be given even when other ordered pain medications are indicated. , Routine BUpivacaine (pf) (Marcaine) (5 Given 12/22/2021 7:45 AM EDT 5 mL s 19- Surgical Site mg/mL) 0.5% injection ONCE PRN, Starting on Wed12/22/21 at 0745, Until Wed12/22/21 at 1201, Intra-Operative (Intra-Procedure), Routine lidocaine (pf) (Xylocaine) (10 Given 12/22/2021 7:45 AM EDT 5 mL s 19- Surgical Site mg/mL) 1% injection ONCE PRN, Starting on Wed12/22/21 at 0745, Until Wed12/22/21 at 1201, Intra-Operative (Intra-Procedure), Routine documented in this encounter Active and Recently Administered Medications Times are shown in EDT. Scheduled Medication Order 12/20/2021 12/21/2021 12/22/2021 acetaminophen (Tylenol) tablet 1,000 mg (COMPLETED) 0646 (Given - Provider: Meena Roth RN) 1,000 mg, Oral, ONCE, 1 dose, On 11/29 at 0700, Administer with SIP of H2O only. Maximum dose of acetaminophen is 4,000 mg from all sources in 24 hours., Day of Surgery (Day of Procedure), Routine Continuous Medication Order 12/20/2021 12/21/2021 12/22/2021 lactated ringers infusion (CANCELED) 0721 (New Bag - Provider: Khloe Harrington CRNA)0818 (Stopped - Provider: Khloe Harrington CRNA) 1,000 mL, at 100 mL/hr, Intravenous, CON TINUOUS, Starting on Wed12/22/21 at 0700, Until Wed12/22/21 at 0940, Day of Surgery (Day of Procedure) PRN Medication Order 12/20/2021 12/21/2021 12/22/2021 acetaminophen (Tylenol) tablet 650 mg 650 mg, Oral, EVERY 4 HOURS PRN, Startin g on Wed12/22/21 at 0838, Until Wed12/22/21 at 1201, Pain, Maximum dose of acetaminophen is 4000 mg from all sources in 24 hours. When ordered for pain, acetamino phen should be given even when other ord ered pain medications are indicated. , Routine BUpivacaine (pf) (Marcaine) (5 mg/mL) 0.5% injection (CANCELED) 0745 (Given - Provider: Dimitrios Dill MD - Comment: mixed 1:1 with 1% lidocaine, 10ml total) ONCE PRN, Starting on Wed12/22/21 at 074 5, Until Wed12/22/21 at 1201, Intra- Operative (Intra-Procedure), Routine lidocaine (pf) (Xylocaine) (10 mg/mL) 1% injection (CANCELED) 0745 (Given - Provider: Dimitrios Dill MD - Comment: mixed 1:1 with 0.5% bupivacaine) ONCE PRN, Starting on Wed12/22/21 at 074 5, Until Wed12/22/21 at 1201, Intra- Operative (Intra-Procedure), Routine documented in this encounter Care Teams Behavioral Interventionist Relationship Specialty Start Date End Date Nereida Barnett MD PCP - General Family Medicine 06/19/[address] [place] [address] documented as of this encounter
--- OUTSIDE RECORDS SUMMARY | 2022-04-03 12:31 | XMS_ITS | Encounter Summary ---
:1935 Author Organization [facility] [place] [address] Care Team Providers Name Role Phone None Primary Care Provider Unavailable Encounter Details Date Type Department Care Team Description 06/06/2020 Hospital Encounter Mammography at [facility] Courtney Dill Nipple discharge [facility] MD Luli [facility] [id number] GENERAL SURGERY [phone] [place], [place] [address] Social History Tobacco Use Types [...] Visit Pulmonology Matt Watson MD [facility] [place] [address] (Wo rk) documented as of this encounter Procedures Procedure Name Priority Date/Time Associated Comments Diagnosis MAMMO DIAGNOSTIC CAD Routine 06/06/2020 11:36 AM Nipple discha rge Results for this AND MATIAS LEFT EST procedure are in the results section. [...] ? Electronically signed by: Flora childress MD, [facility] ([phone]), at 06/06/2020 11:48 AM Narrative 06/06/2020 11:48 [...] breast documented in this encounter Care Teams Inpatient Services Rn Relationship Specialty Start Date End Date None PCP - General 06/06/20 06/18/21 None documented as of this encounter
--- OUTSIDE RECORDS SUMMARY | 2022-04-03 12:31 | XMS_ITS | Encounter Summary ---
:1935 Author Organization [facility] [place] [address] Care Team Providers Name Role Phone Nereida Barnett MD Primary Care Provider [phone] Encounter Details Date Type Department Care Team Description 01/13/2022 Telephone Hematology/Oncology at [facility] [place] , Yao Antonio MD [address] ONCOLOGY [place] [address] [phone] [place] [address] [phone] (Wo rk) Social History Tobacco Use Types [...] MD [facility] [address] ANEESH Patel [place], [place] [address] (Wo rk) Scheduled Orders Name Type Priority Associated Diagnoses Order S chedule CBC (with Diff) Lab STAT Breast cancer, stage 1, E xpected: 04/06/2022, right Expires: 01/13/2023 History of ITP Comprehensive metabolic Lab STAT Breast cancer, st age 1, Expected: 04/06/2022 panel (non-fasting) right (Approxi mate), Expires: 2022 documented as of this encounter Visit Diagnoses Diagnosis Breast cancer, stage 1, right History of ITP Personal history of diseases of blood an d blood-forming organs documented in this encounter Care Teams Cooker Mechanic Relationship Specialty Start Date End Date Nereida Barnett MD PCP - General Family Medicine 06/19/[address] [place] [address] documented as of this encounter
--- OUTSIDE RECORDS SUMMARY | 2022-04-03 12:31 | XMS_ITS | Encounter Summary ---
:1935 Author Organization [facility] [place] [address] Care Team Providers Name Role Phone Unknown Primary Care Provider Unavailable Encounter Details Date Type Department Care Team Description 12/15/2019 Office Visit Hematology/Oncology Thuan Feliciano MD [facility] [place] [address] Breast cancer, stage at [facility], [address] [place] [address] 1, right [address] [place] [phone] Social History Tobacco Use Types Packs/Day [...] Sign Reading Time Taken Comments Blood Pressure 153/87 12/15/2019 3:00 PM EDT Pulse 87 12/15/2019 3:00 PM EDT Temperature 36.6 ??C (97.9 ??F) 12/15/2019 3:00 PM EDT Respiratory Rate 16 12/15/2019 3:00 PM EDT Oxygen Saturation 98% 12/15/2019 3:00 PM EDT Inhaled Oxygen Concentration - - Weight 84.4 kg (186 lb) 12/15/2019 3:00 PM EDT Height 147 cm (4' 9.87) 12/15/2019 3:00 PM EDT copied Body Mass Index 39.04 12/15/2019 3:00 PM EDT documented in this encounter Progress Notes Yao Feliciano MD - 12/15/2019 3:00 PM EDT Subjective: Patient ID: Barbara Casarez is a 84 y.o. female. Problem List: 1. Cancer of the right breast, T1iB4M2, stage IA, low grade, ER/MS positive, Her-2/veronica negative. A. Screening mammogram 11/15/12 [...] cancer cells with immunostaining) Stain Intensity: Strong MS immunoreactivity: Positive (>90% cancer cells with immunostaining) [...] Type: Invasive ductal carcinoma Tumor Grade: Low Yayixz-Muznn-Vkojogopee Score: 5 Tubular Differentiation: 2 Mitotic Rate: 1 Nuclear Grade: 2 Tumor Size: 0.7 cm (maximum diameter) In Situ Histologic Type: Not identified (present in the core bx [id number]) Microcalcifications: Not identified Angiolymphatic Invasion: Not identified [...] screening. ?? BIRADS CATEGORY 2: Benign findings. 2. ITP. A. Found to have low [...] 4 doses on 11/02/14 3. ASCVD s/p DC with v fib [...] 42, IgG - 424, IgM - 23. [place] to be related to rituxan. Given lack [...] On presentation today, she is feeling pretty well overall. Her left hip bothers at times. This is not new or worse. No other particular areas of pain. Her appetite is good and her weight is stable. Shethinks she has some neuropathy in her feet. Her children have been home for the summer. She mentionsan episode of having a small amount of blood from the left nipple in August and no recurrent problemswith that. No trauma to that area or other reason for it. Review of Systems Constitutional: Negative. HENT: Negative. [...] distension and no mass. There is no abdominal tenderness. There is no guarding. Genitourinary: Genitourinary Comments: Breast exam - no skin dimpling or puckering and no discrete masses in either breast. Left nipple looks slightly retracted, unclear if this is a change. Musculoskeletal: General: No edema. Lymphadenopathy: She has no cervical adenopathy. She has no axillary adenopathy. Right: No supraclavicular adenopathy present. Left: No supraclavicular adenopathy present. Neurological: She is alert and oriented to person, place, and time. Coordination normal. Skin: Skin is warm and dry. No rash noted. Psychiatric: She has a normal mood and affect. Her behavior is normal. Vitals reviewed. Labs: WBC/ANC - 7.12/5199, Hgb/Hct - 15.9/49.1, Plts -121,000. BUN/Cr - 22/1.1. TSP - 5.7 with alb- 3.7. 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 1. Cancer of the right breast, diagnosed in 2012, pT1bN0. S/p partial mastectomy on 01/05/13. Adjuvant radiation, completed 03/31/13 In early 04/12, she began femara, 2.5 mg per day. She completed 5 years of therapy in 03/2018. The mammogram done in 11/16 showed no evidence of malignancy. 2. Osteoporosis She is taking calcium with vitamin D. Vit D level in 03/2018 was 41.9 Reclast annually 3. ITP. Platelet count 11/15/13 - 36K. Treated with short course of high dose dex at 40 mg per day for 4 days. The platelet count improvedto 85K. 05/13, the platelets decreased to 26k. She was retreated with the same dex dose. She again had a response. 09/12, the platelets dropped to 38k and dex was repeated. The platelets again responded. She then received a course of weekly rituxan which she began on 10/12/14. She tolerated this well and completed 4 doses on 11/02/14. The platelet count has increased overall and, allowing for some fluctuation, has been stable since then. She is due for reclast in March. We will schedule that and I will plan to see her at the same time and repeat the breast exam just to make sure there are no changes in the area of the left nipple and no recurrent bleeding. documented in this encounter Plan of Treatment Upcoming Encounters Date Type Specialty Care Team Description 04/06/2022 Appointment Pulmonology 04/06/2022 Office Visit Pulmonology Matt Watson MD [facility] PUL[facility]ARY [place], [place] [address] (Wo rk) documented as of this encounter Visit Diagnoses Diagnosis Breast cancer, stage 1, right documented in this encounter Care Teams Analog Circuit Designer Relationship Specialty Start Date End Date Unknown PCP - General 11/30/19 06/05/20 None documented as of this encounter
--- OUTSIDE RECORDS SUMMARY | 2022-04-03 12:31 | XMS_ITS | Encounter Summary ---
:1935 Author Organization [facility] [place] [address] Care Team Providers Name Role Phone Matt Mcdonnell Primary Care Provider Reason for Visit Reason Comments IV Medication Reclast Encounter Details Date Type Department Care Team Description 04/06/2019 Infusion Hematology Oncology at [facility] cancer, stage 1, [place] [phone] Social History Tobacco Use Types Packs/Day [...] documented as of this encounter Progress Notes Fatuma Silva RN - 04/06/2019 11:00 AM EST Infusion Note Diagnosis: Breast cancer Treatment: Reclast Infusion Creatinine: 0.77, Calcium 9.0 Reclast 5 mg infused over 15 minutes Patient instructed on side effects of Reclast. Patient states understanding of teaching, Patient aware to call clinic with any questions or concerns. Plan: Return to clinic as scheduled. documented in this encounter Plan of Treatment Upcoming Encounters Date Type Specialty Care Team Description 04/06/2022 Appointment Pulmonology 04/06/2022 Office Visit Pulmonology Matt Watson MD [facility] PULMONARY [place], [place] [address] (Wo rk) documented as of this encounter Visit Diagnoses Diagnosis Breast cancer, stage 1, right documented in this encounter Administered Medications Inactive Administered Medications - up to 3 most recent administrations Medication Order MAR Action Action Date Dose Rate Site zoledronic acid (RECLAST) 5mg New Bag 04/06/2019 12:01 PM EST 5 mg 400 mL/hr in mannitol and water 100mL 5 mg, Intravenous, ONCE, 1 dose, On Krystal 04/06/19 at 1145, Administer over 15 Minutes, Hold dose for CrCl< 35 mL/min. Do not mix with IV Calcium-containing products. Warning Vesicant/Irritant Medication documented in this encounter Care Teams Manager Delivery Relationship Specialty Start Date End Date Matt Mcdonnell DO PCP - General 11/15/12 11/29/19 [address] [place], [place] [id number] documented as of this encounter
--- OUTSIDE RECORDS SUMMARY | 2022-04-03 12:31 | XMS_ITS | Encounter Summary ---
:1935 Author Organization [facility] [place] [address] Care Team Providers Name Role Phone None Primary Care Provider Unavailable Encounter Details Date Type Department Care Team Description 06/16/2021 Ancillary Procedure Radiology Library at Matias Salmeron MD [facility] HEMATOLOGY/[place] [address] DEPT. [phone] [place], [place] [address] (Wo rk) Social History Tobacco [...] 04/06/2022 Office Visit Pulmonology Matt Watson MD [facility] PULMONARY [place], [place] [address] (Wo rk) documented as of this encounter Procedures Procedure Name Priority Date/Time Associated Diagnosis Comme nts FILM LIBRARY Routine 06/16/2021 12:00 AM Results for this STORAGE ONLY CT EST procedure ar e in CHEST ABDOMEN the results PELVIS section. documented in this encounter Results Film Library- Storage Only CT Chest Abdomen Pelvis (06/16/2021 12:00 AM EST) Specimen (Source) Anatomical Location Collection Method / Collectio n Time Received Time / Laterality Volume Narrative HANY MAY - 06/18/2021 10:02 AM EST This exam is auto-finalizing. It's purpo se is for storage only. Matias Salmeron MD [facility] FILM LIBRARY ORDERABLES Performing Organization Address City/State/ZIP Code Phon e Number [facility] [place], [place] documented in this encounter Visit Diagnoses Not on filedocumented in this encounter Care Teams Money Market Clerk Relationship Specialty Start Date End Date None PCP - General 06/06/20 06/18/21 None documented as of this encounter
--- OUTSIDE RECORDS SUMMARY | 2022-04-03 12:31 | XMS_ITS | Encounter Summary ---
:1935 Author Organization [facility] [place] [address] Care Team Providers Name Role Phone Nereida Barnett MD Primary Care Provider [phone] Reason for Visit Reason Comments Follow-up Encounter Details Date Type Department Care Team Description 01/07/2022 Office Visit General Surgery at Courtney Dill [facility] MD [place] portion of left breast [facility] [address] [place], [place] GENERAL SURGERY [id number] [place], [place] [id number] [phone] Social History Tobacco Use Types Packs/Day Years [...] encounter Progress Notes Courtney Dill MD - 01/07/2022 3:45 PM EDT CANDY Jimenez is an 86 yo female who returns following central lumpectomy for nipple discharge and abnormal mammogram. . I initially met her in May,. At that [...] as follows: ??Cancer of the right breast, [id number], stage IA, low grade, ER/GA positive, Her- 2/veronica negative. A. Screening mammogram [...] cancer cells with immunostaining) Stain Intensity: Strong ?GA immunoreactivity: Positive (>90% cancer cells with immunostaining) [...] Type: Invasive ductal carcinoma ?Tumor Grade: Low ?Umsfbq-Ockia-Gqqbjfgpbg Score: 5 Tubular Differentiation: 2 Mitotic Rate: 1 Nuclear Grade: 2 ?Tumor Size: 0.7 cm (maximum diameter) ?In Situ Histologic Type: Not identified (present in the core bx [id number]) ?Microcalcifications: Not identified ?Angiolymphatic Invasion: Not identified [...] femara; completed 5 years in 03/2018 Barbara opted for central lumpectomy for diagnosis and treatment of nipple discharge. 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 ?? SH: . 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 Has children and grandchildren ?? Past Medical History Past Medical History: Diagnosis Date ??? Breast cancer ? Cancer ? Hypertension ? Idiopathic thrombocytopenia. ? Objective: Physical Exam Constitutional: Appearance: Normal appearance. Left breast with well healed central incision. Resolving ecchymosis. No drainage or erythema. ?? Assessment and Plan: ?? 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 She is recovering well from surgery. She will meet with Dr. Feliciano to discuss possible endocrine therapy. We have agreed with omission of radiation. Barbara does have increasing KNOTT and has agreed to see account planner for evaluation and possible treatment. We will place consult for her. Plan return to clinic in October, with b/l screening mammogram. documented in this encounter Plan of Treatment Upcoming Encounters Date Type Specialty Care Team Description 04/06/2022 Appointment Pulmonology 04/06/2022 Office Visit Pulmonology Matt Watson MD [facility] PULMONARY [place], [place] [address] (Wo rk) documented as of this encounter Visit Diagnoses Diagnosis Cancer of central portion of left breast documented in this encounter Care Teams Market Specialist Relationship Specialty Start Date End Date Nereida Barnett MD PCP - General Family Medicine 06/19/[address] [place] [address] documented as of this encounter
--- OUTSIDE RECORDS SUMMARY | 2022-04-03 12:31 | XMS_ITS | Encounter Summary ---
:1935 Author Organization [place] [address] Care Team Providers Name Role Phone None Primary Care Provider Unavailable Encounter Details Date Type Department Care Team Description 04/14/2021 Office Visit Hematology/Oncology Tory Espinoza [facility] cancer, stage 1, right; at [facility] A, WARD CLERK Erythrocytosis; [address] [place] [address] DR History of ITP; [place], [place] HEMATOLOGY ONCO LOGY Breast cancer screening by mammogram [phone] [place], [place] [phone] (Wo rk) Social History Tobacco Use Types [...] Sign Reading Time Taken Comments Blood Pressure 185/87 04/14/2021 10:05 AM EST Pulse 92 04/14/2021 10:05 AM EST Temperature 36.5 ??C (97.7 ??F) 04/14/2021 10:05 AM EST Respiratory Rate 28 04/14/2021 10:05 AM EST Oxygen Saturation 97% 04/14/2021 10:05 AM EST Inhaled Oxygen Concentration - - Weight 81.5 kg (179 lb 9.6 oz) 04/14/2021 10:05 AM EST Height 147.5 cm (4' 10.07) 04/14/2021 10:05 AM EST Body Mass Index 37.44 04/14/2021 10:05 AM EST documented in this encounter Progress Notes Tory Espinoza, WARD CLERK - 04/14/2021 10:00 AM EST Subjective: Patient ID: Barbara Casarez [...] List: 1. Cancer of the right breast, U3oB2O3, stage IA, low grade, ER/MT positive, Her-2/veronica negative. A. Screening mammogram 11/15/12 [...] cancer cells with immunostaining) Stain Intensity: Strong MT immunoreactivity: Positive (>90% cancer cells with immunostaining) [...] Type: Invasive ductal carcinoma Tumor Grade: Low Awdsfq-Tdkdc-Qevydmdjjw Score: 5 Tubular Differentiation: 2 Mitotic Rate: 1 Nuclear Grade: 2 Tumor Size: 0.7 cm (maximum diameter) In Situ Histologic Type: Not identified (present in the core bx [id number]) Microcalcifications: Not identified Angiolymphatic Invasion: Not identified [...] doses on 11/02/14 ?? 3. ASCVD s/p MD with v fib arrest in 04/14 s/p [...] 42, IgG - 424, IgM - 23. [place] to be related to rituxan. Given lack of frequent infections, no intervention recommended. 9. 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 Left hip fracture 07/2016, s/p ORIF after she fell on the stairs 11. S/p JIN/BSO ?? HPI Ms. Casarez returns in f/u of breast cancer and ITP. The breast cancer was found by routine screening mammogram. Details of the evaluation are noted above. She underwent a partial mastectomy on 01/05/13. The pathology is noted above. We met and discussed adjuvant systemic therapy. Chemotherapy was not recommended. She completed a course a course of adjuvant radiation therapy on 03/31/13. ?? In 04/12, she began femara, 2.5 mg per day. ?? She also has a h/o ITP. Labs [...] 10/12/14. She completed 4 weekly doses on 11/02/14.. INTERVAL HPI 04/14/21 Barbara Casarez is an 84 yo female diagnosed in 2012 with stage 1A, low grade, ER/MT+, HER-2 veronica negative right breast cancer. She returns to the [facility] onc[facility] clinic in [facility] today for routine follow-up for right breast cancer, ITP, and recheck of intermittent bleeding from the left breast nipple. She is also due for annual Reclast infusion today. Barbara arrives independently today. She uses acane sometimes but is not using it today. Barbara was seen at [facility] by Dr. Dill in 06/20 for the bleeding left nipple evaluation. She had a biopsy done which is reported as negative for Paget's disease. Barbara today reports no recent bleeding noted from the left nipple. She thinks she has had maybe one episode of bleeding in the past year. She denies any new lumps or bumps in her breast or axillary areas. She denies swelling or pain in either arm. She had a negative mammogram in 06/20. She notes the left breast nipple is always red. She has been feeling well overall. She tells me she has AF and a pacemaker and is now taking Eliquissince 01/18. She has a history of ITP which has been stable. Her appetite is good, and she is moving her bowels without difficulty. Barbara has had burning in her feet at night and her calves feel tight. She has talked to her PCP about using Gabapentin but is not taking it. She is not having dizziness or headaches. She denies fever, chills, or chest pain. She has mild shortness of breath with exertion. No extremity swelling. Allergies Allergen Reactions ??? Celebrex [Celecoxib] Other (See Comments) Hypotension, tachycardia per patient ??? Norvasc [Amlodipine] Other (See Comments) Causes edema to lower extremities Current Medications ??? aspirin 325 mg Tablet ??? meTOPROLOL succinate (TOPROL-XL) 50 mg Tablet Sustained Release 24 hr ??? acetaminophen (TYLENOL) 500 mg Tablet ??? lisinopril (PRINIVIL;ZESTRIL) 20 mg Tablet ??? hydroCHLOROthiazide (HYDRODIURIL) 25 mg Tablet ??? atorvastatin (LIPITOR) 80 mg Tablet ??? nitroGLYcerin (NITROSTAT) 0.4 mg Tablet, Sublingual ??? CALCIUM CARBONATE/VITAMIN D3 (CALCIUM 600 WITH VITAMIN D3 ORAL) ??? multivitamin (THERAGRAN) tablet Review of Systems Constitutional: Negative. HENT: Negative. [...] movements intact. Cardiovascular: Rate and Rhythm: Normal rate and regular rhythm. Heart sounds: Normal heart sounds. Pulmonary: Effort: Pulmonary effort is normal. Breath sounds: Normal breath sounds. No wheezing or rales. Abdominal: General: Bowel sounds are normal. Palpations: Abdomen is soft. Tenderness: There is no abdominal tenderness. Musculoskeletal: Right lower leg: No edema. Left lower leg: No edema. Lymphadenopathy: Cervical: No cervical adenopathy. Skin: General: Skin is warm and dry. Findings: No rash. Neurological: Mental Status: She is alert and oriented to person, place, and time. Coordination: Coordination normal. Psychiatric: Mood and Affect: Mood normal. Thought Content: Thought content normal. Breast Exam - Right breast - No new masses noted. No skin dimpling, normal appearing nipple, no discharge. Left breast - No new masses noted. No skin dimpling, nipple outward, reddish.. No discharge noted. No pain with palpation. BP 185/87 (Patient Position: Sitting) Pulse 92 Temp 36.5 ??C (97.7 ??F) (Temporal) Resp 28 Ht 147.5 cm (4' 10.07) Wt 81.5 kg (179 lb 9.6 oz) SpO2 97% BMI 37.44 kg/m?? LABS 04/09/21 WBC 8.9; ANC 6.4; H/H 17.6/ 55.0; ( 15.7/48.6 04/19; 15.0/ 46.2 04/18); PLT 127; BUN 20; CREAT 1.03;; LFTs normal; CA++ 9.9 Assessment and Plan: Assessment: Barbraa Casarez is an 84 yo female diagnosed in 2012 with stage 1A, low grade, ER/MT+, HER-2 veronica negative right breast cancer. She returns to the [facility] oncology clinic in [facility] today for routine follow-up for right breast cancer, ITP, and recheck of intermittent bleeding from the left breast nipple. She is also due for annual Reclast infusion today. Barbara has been doing quite well. We reviewed her labs today. Her platelets are stable at 127. ITP in remission; H/H shows progressive erythrocytosis. Left nipple biopsy from October, no recent bleeding. Plan: Reclast infusion today. Refer to hematology, Dr. Salmeron for erythrocytosis. RTC in one year for visit, labs, Reclast infusion. Mammogram due 06/21. documented in this encounter Plan of Treatment Upcoming Encounters Date Type Specialty Care Team Description 04/06/2022 Appointment Pulmonology 04/06/2022 Office Visit Pulmonology Matt Watson MD [facility] PULMONARY [place], [place] [address] (Wo rk) Scheduled Orders Name Type Priority Associated Diagnoses Order S chedule JAK2 Lab Routine Breast cancer, stage 1, Expe cted: 04/22/2021, right Expires: 04/15/2022 Erythrocytosis History of ITP [id number] (p210) by RT-PCR, Lab Routine Breast cancer, stage 1, Expected: 04/22/2021, Quantitative right Expires: 04/15/2022 Erythrocytosis History of ITP Erythropoietin Level Lab Routine Breast cancer, stage 1, Expected: 04/22/2021, right Expires: 04/15/2022 Erythrocytosis History of ITP documented as of this encounter Visit Diagnoses Diagnosis Breast cancer, stage 1, right Erythrocytosis Polycythemia, secondary History of ITP Personal history of diseases of blood an d blood-forming organs Breast cancer screening by mammogram documented in this encounter Care Teams Social Work Supervisor Relationship Specialty Start Date End Date None PCP - General 06/06/20 06/18/21 None documented as of this encounter
--- OUTSIDE RECORDS SUMMARY | 2022-04-03 12:31 | XMS_ITS | Encounter Summary ---
:1935 Author Organization [facility] [place] [address] Care Team Providers Name Role Phone Nereida Barnett MD Primary Care Provider [phone] Encounter Details Date Type Department Care Team Description 10/29/2021 Orders Only General Surgery at [facility] e discharge [facility] MD Luli (Primary Dx) [facility] [place] [address] GENERAL SURGERY [phone] [place], [place] [address] Social History Tobacco Use Types [...] 04/06/2022 Office Visit Pulmonology Matt Watson MD [facility] DR ANEESH RAZABEAVER [place], [place] [address] (Wo rk) documented as of [...] who have questions please contact the health lawn care professional that requested your imaging first. ? Electronically signed by: Inge Harrington MD, [facility] ([phone]), at 11/03/2021 7:53 PM --------ADDENDUM #1-------- Dr. [...] who have questions please contact the health lawn care professional that requested your imaging first. ? Electronically signed by: Inge Harrington MD, [facility] ([phone]), at 11/03/2021 12:51 PM --------ORIGINAL REPORT -------- [...] who have questions please contact the health lawn care professional that requested your imaging first. ? Electronically signed by: Inge Harrington MD, [facility] ([phone]), at 11/03/2021 12:23 PM Addendum by Inge [...] who have questions please contact the health lawn care professional that requested your imaging first. ? Electronically signed by: Inge Harrington MD, [facility] ([phone]), at 11/03/2021 12:51 PM --------ORIGINAL REPORT -------- [...] who have questions please contact the health lawn care professional that requested your imaging first. ? Electronically signed by: Inge Harrington MD, [facility] ([phone]), at 11/03/2021 12:23 PM Narrative 11/03/2021 12:23 [...] who have questions please contact the health lawn care professional that requested your imaging first. ? Electronically signed by: Inge Harrington MD, [facility] ([phone]), at 11/03/2021 12:23 PM Procedure Note Inge [...] ho have questions please contact the health lawn care professional that requested your imaging first. Electronically signed by: Inge Harrington MD, [facility] ([phone]), at 11/03/2021 12:23 PM Courtney Dill MD IMG MAMMO ORDERABLES Mammo Diagnostic Cad and Matias Left (11/03/2021 9:55 AM EDT) Anatomical Region [...] who have questions please contact the health lawn care professional that requested your imaging first. ? Electronically signed by: Inge Harrington MD, [facility] ([phone]), at 11/03/2021 7:53 PM --------ADDENDUM #1-------- Dr. [...] who have questions please contact the health lawn care professional that requested your imaging first. ? Electronically signed by: Inge Harrington MD, [facility] ([phone]), at 11/03/2021 12:51 PM --------ORIGINAL REPORT -------- [...] who have questions please contact the health lawn care professional that requested your imaging first. ? Electronically signed by: Inge Harrington MD, [facility] ([phone]), at 11/03/2021 12:23 PM Addendum by Inge Harrington MD on 10/2021 12:56 PM EDT --------ADDENDUM #1-------- Dr. Harrintgon discussed with the patient t hat she [...] who have questions please contact the health lawn care professional that requested your imaging first. ? Electronically signed by: Inge Harrington MD, [facility] ([phone]), at 11/03/2021 12:51 PM --------ORIGINAL REPORT -------- [...] who have questions please contact the health lawn care professional that requested your imaging first. ? Electronically signed by: Inge Harrington MD, [facility] ([phone]), at 11/03/2021 12:23 PM Narrative 11/03/2021 12:23 [...] who have questions please contact the health lawn care professional that requested your imaging first. ? Electronically signed by: Inge Harrington MD, [facility] ([phone]), at 11/03/2021 12:23 PM Procedure Note Inge [...] ho have questions please contact the health lawn care professional that requested your imaging first. Electronically signed by: Inge Harrington MD, [facility] ([phone]), at 11/03/2021 12:23 PM Courtney Dill MD IMG MAMMO ORDERABLES documented in this encounter Visit Diagnoses Diagnosis Nipple discharge - Primary Other sign and symptom in breast Nipple discharge Other sign and symptom in breast Nipple discharge Other sign and symptom in breast documented in this encounter Care Teams Intervention Manager Relationship Specialty Start Date End Date Nereida Barnett MD PCP - General Family Medicine 06/19/[address] [place] [address] documented as of this encounter
--- OUTSIDE RECORDS SUMMARY | 2022-04-03 12:31 | XMS_ITS | Encounter Summary ---
:1935 Author Organization [facility] [address] Care Team Providers Name Role Phone None Primary Care Provider Unavailable Encounter Details Date Type Department Care Team Description 06/06/2020 Hospital Encounter Mammography at [facility] Dill Nipple discharge [facility] MD Luli [facility] [phone] GENERAL SURGERY [phone] [place], [place] [address] Social History Tobacco Use Types [...] Visit Pulmonology Matt Watson MD [facility] PUL[facility] [place], [place] [address] (Wo rk) documented as of this encounter Procedures Procedure Name Priority Date/Time Associated Diagnosis Comme nts MAMMO BREAST US Routine 06/06/2020 11:43 AM Nipple discharge R esults for this LIMITED LEFT EST procedure are i n the results [...] report, please contact e number below. ? Narrative 06/06/2020 11:48 AM EST EXAMINATION: MAMMO [...] breast documented in this encounter Care Teams Public Health Outreach Worker Relationship Specialty Start Date End Date None PCP - General 06/06/20 06/18/21 None documented as of this encounter
--- OUTSIDE RECORDS SUMMARY | 2022-04-03 12:31 | XMS_ITS | Encounter Summary ---
:1935 Author Organization [facility] [place] [address] Care Team Providers Name Role Phone Matt Mcdonnell Martha KHAN Primary Care Provider Reason for Visit Reason Comments IV Medication Reclast Encounter Details Date Type Department Care Team Description 04/15/2018 Infusion Hematology Oncology at [facility] neoplasm of female [facility] breast, unspecified estrogen [address] [place] [address] receptor status, unspecified [place], [place] [phone] laterality, unspecified site [phone] of breast Social History Tobacco Use Types Packs/Day Years [...] documented as of this encounter Progress Notes Cassy Borden RN - 04/15/2018 2:00 PM EST Infusion Note Diagnosis: Breast cancer Treatment: Reclast Infusion Creatinine: 0.83 Reclast 5 mg infused over 15 minutes Patient instructed on side effects of Reclast. Patient states understanding of teaching, Patient aware to call clinic with any questions or concerns. Plan: Return to clinic as scheduled. documented in this encounter Plan of Treatment Upcoming Encounters Date Type Specialty Care Team Description 04/06/2022 Appointment Pulmonology 04/06/2022 Office Visit Pulmonology Matt Watson MD [facility] P[facility] [place], [place] [address] (Wo rk) documented as of this encounter Procedures Procedure Name Priority Date/Time Associated Diagnosis Comme nts LAB SCAN 04/25/2018 12:00 AM Results for this EST procedure are i n the results section . documented in this encounter Results SCAN DOC: LAB (04/25/2018 12:00 AM EST) Narrative 04/25/2018 12:00 AM EST This result has an attachment that is no t available. Ordered by an unspecified provider. Scanning Provider MEDIA MGR SCAN EXT ORDR/RSLT documented in this encounter Visit Diagnoses Diagnosis Malignant neoplasm of female breast, uns pecified estrogen receptor status, unspecified laterality, unspecified site of breast documented in this encounter Administered Medications Inactive Administered Medications - up to 3 most recent administrations Medication Order MAR Action Action Date Dose Rate Site zoledronic acid (RECLAST) 5mg New Bag 04/15/2018 2:55 PM EST 5 mg 400 mL/hr in mannitol and water 100mL 5 mg, Intravenous, ONCE, 1 dose, On Wed04/15/18 at 1415, Administer over 15 Minutes, Hold dose for CrCl< 35 mL/min. Do not mix with IV Calcium-containing products. Warning Vesicant/Irritant Medication documented in this encounter Care Teams Marine Photographer Relationship Specialty Start Date End Date Matt Mcdonnell DO PCP - General 11/15/12 11/29/19 [address] [place] [address] documented as of this encounter
--- OUTSIDE RECORDS SUMMARY | 2022-04-03 12:31 | XMS_ITS | Encounter Summary ---
:1935 Author Organization [facility] [place] [address] Care Team Providers Name Role Phone Unknown Primary Care Provider Unavailable Reason for Visit Reason Comments IV Medication Reclast Encounter Details Date Type Department Care Team Description 04/12/2020 Infusion Hematology Oncology at [facility] cancer, stage 1, right; [facility] Osteoporosis, post-menopausa l [address] [place] [phone] Social History Tobacco Use Types Packs/Day [...] documented as of this encounter Progress Notes Lenin López RN - 04/12/2020 2:30 PM EST Infusion Note Diagnosis: Breast cancer Treatment: Reclast Infusion Labs done at [facility] 04/11/20- Creatinine clearance 55ml/min, Calcium 9.4 Reclast 5 mg infused over 15 minutes. PIV flushes easily with positive blood return noted. PIV removed prior to dismissal. Patient instructed on side effects of Reclast. Patient states understanding of teaching, Patient aware to call clinic with any questions or concerns. Plan: Return to clinic as scheduled. documented in this encounter Plan of Treatment Upcoming Encounters Date Type Specialty Care Team Description 04/06/2022 Appointment Pulmonology 04/06/2022 Office Visit Pulmonology Matt Watson MD [facility] PUL[facility]ARY [place], [place] [address] (Wo rk) documented as of this encounter Visit Diagnoses Diagnosis Breast cancer, stage 1, right Osteoporosis, post-menopausal Senile osteoporosis documented in this encounter Administered Medications Inactive Administered Medications - up to 3 most recent administrations Medication Order MAR Action Action Date Dose Rate Site zoledronic acid (Reclast) 5 mg New Bag 04/12/2020 3:25 PM EST 5 mg 400 mL/hr in mannitol and sterile water 100 mL infusion 5 mg, Intravenous, ONCE, 1 dose, On Wed04/12/20 at 1530, Administer over 15 Minutes, Hold dose for CrCl< 35 mL/min. Do not mix with IV Calcium-containing products. Warning Vesicant/Irritant Medication , Indication for: Osteoporosis, prevention of fractures documented in this encounter Care Teams Optical Systems Engineer Relationship Specialty Start Date End Date Unknown PCP - General 11/30/19 06/05/20 None documented as of this encounter
--- OUTSIDE RECORDS SUMMARY | 2022-04-03 12:31 | XMS_ITS | Encounter Summary ---
:1935 [place] [address] Care Team Providers Name Role Phone Nereida Barnett MD Primary Care Provider [phone] Encounter Details Date Type Department Care Team Description 12/22/2021 Hospital Encounter Same Day Program at [facility] i Acquired complete AV Cookie Rockwell MD [facility] DR Felipe [place] [address] [phone] Social History Tobacco Use Types Packs/Day Years [...] 8:15 AM EDT Respiratory Rate 16 12/22/2021 9:30 AM EDT Oxygen Saturation 93% 12/22/2021 9:30 AM EDT Inhaled Oxygen Concentration - - Weight 82.5 kg (181 lb 14.4 oz) 12/22/2021 6:19 AM EDT Height 149.9 cm (4' 11) 12/22/2021 6:19 AM EDT Body Mass Index 36.74 12/22/2021 6:19 AM EDT documented in this encounter Discharge Instructions Discharge InstructionsMeena Roth RN - 12/22/2021 7:06 AM EDT Okay to shower 24 hours Activity as tolerated Call [phone] with any questions Do not soak incision [...] AM EDT Cardiac Device Interrogation Barbara Casarez [phone] 12/22/2021 History: 86 yo female with history of complete heart block s/p dual chamber pacemaker implant (Medtronic) who is immediately s/p mastectomy and EP is asked to interrogate pacemaker post-magnet application. There was no concern for the pacemaker function post-magnet application, and she is hemodynamically stable. She is followed at [facility] for her device, but does not have remote monitoring, per [place] nurse. Device interrogated, patient in atrial fibrillation, takes Eliquis that is very expensive for her. Recommended that she ask her PCP or device clinic for coupons or alternate medication for anticoagulation. Patient states she has remote monitoring in place. Device Interrogation: Data Generator: Look.ioa DR DEMPSEY [id number], Serial Number: [id number] - left-sided implant 04-Jun-2016 RA Lead: Medtronic 5076 CapsureFix Novus MRI, serial [id number] RV Lead: Medtronic 5076 CapsureFix Novus MRI, serial [id number] Alerts 113 days with more than 6 hr AT/AF. Diagnostics Pacing Mode: DDDR 60-120 bpm Presenting EGMs: , AR/SILO FILLER Underlying Rhythm: atrial fibrillation 60 bpm Atrial [...] up: in her usual device clinic in [place], has remote monitoring. Note sent to her treater helper Dr. Coyne. 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 A. Screening mammogram [...] cancer cells with immunostaining) Stain Intensity: Strong ?MT immunoreactivity: Positive (>90% cancer cells with immunostaining) [...] Type: Invasive ductal carcinoma ?Tumor Grade: Low ?Aujaaa-Skeyy-Fzqpynrwaz Score: 5 Tubular Differentiation: 2 Mitotic Rate: 1 Nuclear Grade: 2 ?Tumor Size: 0.7 cm (maximum diameter) ?In Situ Histologic Type: Not identified (present in the core bx [id number]) ?Microcalcifications: Not identified ?Angiolymphatic Invasion: Not identified [...] Dill MD - 12/22/2021 7:41 AM EDT [facility] Operative Note Patient Name: Barbara Casarez : [id number] MR#: [id number] Case Date: 12/22/2021 Surgeon: Surgeon(s) and Role: [...] Matt Watson MD [facility] PULMONARY [place], [place] [address] (Wo rk) documented as of [...] Component Value Ref Test Analysis Performed At [facility] Method Time Signature Surgical [id number] ? Location: [facility]; [facility]; [facility] Report The signing pathologist has (i) examined the relevant preparation(s) for the MEMORIAL specimen(s) and (ii) rendered or confirmed the diagnosis(es) . HOSPITAL LABORATORY . ? Addendum ADDENDUM DISCUSSION Immunohistochemistry Studies Specimen: Left breast, partial mastectomy (A9) ER immunoreactivity: Positive (>90% cancer cells with immuno staining) Stain intensity: Strong MT immunoreactivity: Positive (>90% cancer cells with immuno [...] expression profiles more similar to ER-negative cancers. [id number] Overexpression Assessment ?------- ?----- Interpretation ?Score ?Criteria [...] performed according . ADDENDUM DISCUSSION to the investment banking manager ' s ins tructions using Anti-ER (SP1), Anti-MT (16), and Anti-HER2 (4B5) antibodies. These tests were developed and their per formance characteristics determined by [facility]. They may not have been cleared [...] Verified: ??12/26/2021 8:20 ?? Pathologist Performed at: ??-[facility] Dept. 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 of Pathology, [place], [place] SYNOPTIC Specimen ? Procedure: ??Excision (less than total mastecto my) ? Specimen Laterality: ??Left Tumor ? Histologic Type: ??Invasive ductal carcinoma ? Histologic Grade (Ashley Histologic Score): ?Glandular (Acinar) / Tubular Differentiati [...] Studies ? Tumor Block(s): ??A9 ? [facility] 2021 Q1 Release DISCUSSION Sections show an [...] cannot be entirely excluded. Studies for ER, MT, and HER2 have been ordered; result s [...] and 10% rojo-white rubbery fibrous tissue Sections/Processing: Housemaid sections in 17 cassettes as follows: ?A1: Nipple, perpendicularly sectioned and entirely sub mitted ?A2: Slice I, associate sales representative perpendicular sections ?A3: Slice III, associate sales representative ?A4-A6: Slice V, quadrisected and entirely submitted ?A7-A8: Slice , lesio n to superior-green and inferior-orange margin, bisected ?A9: Slice VII, lesion to closest superior-green margin ?A10-A11: Slice VII, associate sales representative of fibrous tissue ?A12: Slice VIII, associate sales representative of the lesion ?A13-A15: Slice VIII, remnant entirely submitted ?A16: Slice X, associate sales representative ?A17: Slice XIII, perpendicular section and entirely pisano bmitted Ischemic Time: 1 hour ??op Specimen (Source) Anatomical Collection Method Collection Time Re ceived Time Location / / Volume Laterality 12/22/2021 8:10 AM EDT Dimitrios Dill MD PATHOLOGY/CYTOLOGY ORDERABLE S Performing Organization Address City/[facility]/[place] [address] Specimen to Pathology (12/22/2021 8:10 AM EDT) Specimen Anatomical Collection Method Collection Time Receive d Time (Source) Location / / Volume Laterality AP Specimen 12/22/2021 8:10 AM 8:10 EDT AM EDT Narrative [facility] - 12/22/2021 8:10 AM EDT Specimen requisition ordered. ??Separate Pathology report to follow Dimitrios Dill MD PATHOLOGY/CYTOLOGY ORDERABLE S Performing Organization Address City/State/[place] [address] EKG 12 Lead (12/22/2021 7:21 AM EDT) Component Value Ref Range Test Analysis Performed Pathologis t Method Time At Signature Ventricular rate 64 BPM MUSE SYSTEM Atrial Rate 441 BPM MUSE SYSTEM QRS Duration 188 ms MUSE SYSTEM Q-T Interval 508 ms MUSE SYSTEM QTC Calculated 524 ms MUSE SYSTEM (Bezet) Calculated R [place] -74 degrees MUSE SYSTEM Calculated T [place] 96 degrees MUSE SYSTEM INTERPRETATION Ventricular-paced rhythm Occ asional Premature ventricular complexes MUSE SYSTEM Abnormal ECG When compared with ECG of 04-JUN-2016 07:56, Previous ECG has undetermined rhythm, needs review I personally reviewed the tracing and edited the fellows int erpretation Confirmed by fellow MD Raffi, Luciana ([id number]) on 12/22/2021 11:25:55 PM Confirmed by MD Alexandre, Og ([id number]) on 12/23/2021 2:28:19 PM Specimen Anatomical Collection Method Collection Time Receive d Time (Source) Location / / Volume Laterality 12/22/2021 7:21 AM 2:28 EDT PM EDT Leslie Francis MD ECG ORDERABLES Performing Organization Address City/State/ZIP Code Phon e Number MUSE SYSTEM documented in this encounter Visit Diagnoses Diagnosis Acquired complete AV block Atrioventricular block, complete documented in this encounter Administered Medications Inactive [...] ordered pain medications are indicated. , Routine documented in this encounter Active and [...] Routine documented in this encounter Care Teams Traffic Chief Relationship Specialty Start Date End Date Nereida Barnett MD PCP - General Family Medicine 06/19/[address] [place] [address] documented as of this encounter
--- OUTSIDE RECORDS SUMMARY | 2022-04-03 12:31 | XMS_ITS | Encounter Summary ---
:1935 Author Organization [facility] [place] [address] Care Team Providers Name Role Phone Nereida Barnett MD Primary Care Provider [phone] Encounter Details Date Type Department Care Team Description 01/08/2022 Telephone Pulmonology at [facility] Yajaira Danielle [facility] [place] [address] Social History Tobacco Use Types Packs/Day [...] 04/06/2022 Office Visit Pulmonology Matt Watson MD [facility] PULMONARY TURNER [place], [place] [address] (Wo rk) documented as of this encounter Visit Diagnoses Not on filedocumented in this encounter Care Teams Back Hand Relationship Specialty Start Date End Date Nereida Barnett MD PCP - General Family Medicine 06/19/[address] [place] [address] documented as of this encounter
--- OUTSIDE RECORDS SUMMARY | 2022-04-03 12:31 | XMS_ITS | Encounter Summary ---
:1935 Author Organization [facility] [place] [address] Care Team Providers Name Role Phone Nereida Barnett MD Primary Care Provider [phone] Encounter Details Date Type Department Care Team Description 02/09/2022 Hospital Encounter Hematology and Oncology at [facility]; [facility] [place] [address] Social History Tobacco Use Types Packs/Day [...] 04/06/2022 Office Visit Pulmonology Matt Watson MD [facility] PULMONARY [place] [address] (Wo rk) documented as of this encounter Procedures Procedure Name Priority Date/Time Associated Comments Diagnosis HEMOGRAM STAT 02/09/2022 9:54 AM Erythrocytosi s Results for this EDT History of ITP procedure are in the results section. DIFFERENTIAL, STAT 02/09/2022 9:54 AM Erythrocytosi s Results for this AUTOMATED EDT History of ITP procedure are in the results section. HC VENIPUNCTURE STAT 02/09/2022 9:54 AM Erythrocytosi s EDT History of ITP COMPREHENSIVE STAT 02/09/2022 9:54 AM Erythrocytosi s Results for this METABOLIC PANEL EDT History of ITP procedure are in (NON-FASTING) the results section. documented in this encounter Results (ABNORMAL) Differential, Automated (02/09/2022 9:54 AM EDT) [facility] Method Time Signature Neutrophils % 72.4 % [facility] Neutr Abs (ANC) 6.63 (H) 1.70 - [facility] 6.10 [facility] x10(3)/[facility] LABORATORY Lymphocytes % 17.4 % [facility] Lymphocytes Abs 1.6 0.9 - 3.2 [facility] x10(3)/[facility] LABORATORY Monocytes % 7.9 % [facility] Monocyte Abs 0.7 0.3 - 0.9 [facility] x10(3)/[facility] LABORATORY Eosinophils % 1.5 % [facility] Eosinophils Abs 0.1 0.0 - 0.4 [facility] x10(3)/[facility] LABORATORY Basophils % 0.5 % [facility] Basophils Abs 0.0 0.0 - 0.1 [facility] x10(3)/[facility] LABORATORY Immature Gran % 0.30 % [facility] Comment: Immature granulocytes(IG's)percentage an d absolute count will include metamyelocytes, myelocytes, and promyelo cytes. Blood smears from CBCs yielding IG's will be scanned manually for concor dance. If this scan disagrees with the automated IG or if promyelocytes are not ed, a manual differential will be performed. Елена Gran Abs 0.03 0.00 - 0.04 x10(3)/[facility] MAR Y [facility] Specimen Anatomical Collection Method Collection Time Receive d Time (Source) Location / / Volume Laterality Blood 02/09/2022 9:54 AM 2 EDT 10:15 AM EDT Resulting Agency Comment Spec In Lab Matias Salmeron MD HEMATOLOGY ORDERABLES Performing Organization Address City/State/[place] [address] (ABNORMAL) Hemogram (02/09/2022 9:54 AM EDT) Analysis Performed At Patho logist Time Signature WBC 9.2 4.0 - 9.5 [facility] x10(3)/[facility] LABORATORY RBC 5.30 (H) 4.00 - [facility] 5.21 [facility] x10(6)/[facility] LABORATORY Hemoglobin 15.7 (H) 11.7 - [facility] 15.5 g/dL [facility] Hematocrit 50.1 (H) 35.7 - [facility] 45.8 % [facility] MCV 94.5 (H) 82.6 - [facility] 94.4 fL [facility] MCH 29.6 27.1 - [facility] 32.0 pg [facility] MCHC 31.3 (L) 31.7 - [facility] 35.0 g/dL [facility] Platelets 135 (L) 145 - 357 [facility] x10(3)/[facility] LABORATORY RDWSD 44.4 37.0 - [facility] 46.[address] [facility] LABORATORY RDWCV 12.7 11.5 - [facility] 14.1 % [facility] MPV 11.0 7.6 - 12.9 [facility] LABORATORY nRBC % Auto 0.0 % [facility] nRBC Abs Auto 0.000 0.000 - [facility] 0.000 [facility] x10(3)/[facility] LABORATORY Specimen Anatomical Collection Method Collection Time Receive d Time (Source) Location / / Volume Laterality Blood 02/09/2022 9:54 AM 2 EDT 10:15 AM EDT Resulting Agency Comment Spec In Lab Matias Salmeron MD HEMATOLOGY ORDERABLES Performing Organization Address City/State/[place] [address] (ABNORMAL) Comprehensive metabolic panel (non-fasting) (02/09/2022 9:54 AM EDT) athologist Signature Glucose Lvl 114 65 - 199 [facility] mg/dL [facility] Comment: Diabetes: >=200 mg/dL plus symp toms BUN 20 (H) 8 - 18 mg/dL [facility] Creatinine 1.04 0.70 - 1.20 mg/dL [facility] Sodium 140 135 - 145 mmol/L [facility] Potassium 3.7 3.5 - 5.0 mmol/L [facility] Comment: Please note: ??Patients with WBC >100,00 0 may have falsely elevated Potassium levels. ??For accurate Potassium quantif ication in these patients send serum separator tube (gold top) for subsequent determinations. ??Contact the Clinical Chemistry Laboratory if there are any qu estions. Chloride 103 98 - 107 mmol/L [facility] CO2 29 22 - 31 mmol/L [facility] Anion Gap 8 5 - 15 mmol/L [facility] Calcium 9.8 8.5 - 10.5 mg/dL [facility] Total Protein 6.2 6.1 - 8.0 g/dL [facility] Albumin 3.8 3.2 - 5.2 g/dL [facility] AST 25 0 - 30 unit/L [facility] ALT 17 0 - 30 unit/L [facility] Alk Phos 88 35 - 105 unit/L [facility] Total Bilirubin 1.0 0.2 - 1.3 mg/dL [facility] Estimated GFR 53 (L) >=60 mL/min/1.73 m?? [facility] Comment: This patient's estimated GFR was [...] Organization Address City/State/[place] [address] documented in this encounter Visit Diagnoses Diagnosis Erythrocytosis Polycythemia, secondary History of ITP Personal history of diseases of blood an d blood-forming organs documented in this encounter Care Teams Pediatric Lpn Relationship Specialty Start Date End Date Nereida Barnett MD PCP - General Family Medicine 06/19/[address] [place] [address] documented as of this encounter
--- OUTSIDE RECORDS SUMMARY | 2022-04-03 12:32 | XMS_ITS | Encounter Summary ---
:1935 Author Organization [facility] [place] [address] Care Team Providers Name Role Phone Matt Mcdonnell Martha KHAN Primary Care Provider Encounter Details Date Type Department Care Team Description 04/17/2016 Office Visit Hematology/Oncology Yao Feliciano Ma lignant neoplasm of right female breast, unspecified site of breast; at [facility] Chronic ITP (idiopathic thrombocytopenia ) [address] [place] [phone] ONCOLOGY [phone] [place], [place] [address] Social History Tobacco Use Types Packs/Day Years Used Date Never Smoker Alcohol Use Standard Drinks/Week Comments Yes 0 [...] Sign Reading Time Taken Comments Blood Pressure 169/97 04/17/2016 1:26 PM EST Pulse 72 04/17/2016 1:26 PM EST Temperature 34.7 ??C (94.5 ??F) 04/17/2016 1:26 PM EST Respiratory Rate 16 04/17/2016 1:26 PM EST Oxygen Saturation 99% 04/17/2016 1:26 PM EST Inhaled Oxygen Concentration - - Weight 81.2 kg (179 lb) 04/17/2016 1:26 PM EST Height 147 cm (4' 9.87) 04/17/2016 1:26 PM EST Body Mass Index 37.57 04/17/2016 1:26 PM EST documented in this encounter Progress Notes Yao Feliciano MD - 04/17/2016 1:30 PM EST Subjective: Patient ID: Barbara Casarez is a 80 y.o. female. Problem List: 1. 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 A. Screening mammogram 11/15/12 [...] cancer cells with immunostaining) Stain Intensity: Strong ID immunoreactivity: Positive (>90% cancer cells with immunostaining) [...] Type: Invasive ductal carcinoma Tumor Grade: Low Ttsatj-Lgjwn-Vzpfcvfmsv Score: 5 Tubular Differentiation: 2 Mitotic Rate: 1 Nuclear Grade: 2 Tumor Size: 0.7 cm (maximum diameter) In Situ Histologic Type: Not identified (present in the core bx [id number]) Microcalcifications: Not identified Angiolymphatic Invasion: Not identified [...] 04/07/13 - started femara H. Bilateral mammogram 11/15/15 - No mammographic evidence of malignancy. 2. ITP. A. Found to have low [...] 4 doses on 11/02/14 3. 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 Dexa scan 04/14 - osteopenia of L-spine and proximal femurs. 04/14 - osteoporosis 04/15 - osteopenia to osteoporosis in L-spine and proximal femurs. Fracture risk is high 8. 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 Chinquapin to be related to rituxan. Given lack of frequent infections, no intervention recommended. HPI Ms. Casarez returns in f/u of breast cancer. This was found by routine screening mammogram. Detailsof the evaluation are noted above. She underwent [...] 11/02/14. On presentation today, she is feeling well overall. She is eating well. Her weight is a couple of pounds lower. She continues to have problems with right knee pain. She feels that she would benefit from an arthrovisc injection but has not done this because she is on plavix. She also has problems with bilateral carpal tunnel syndrome, particularly on the left. She is going to arrange to see an orthopedic surgeon about having the carpal tunnel release on the left side after she comes off the plavix, which will be in the near future. Her energy level is good and she is exercising twice a week at [facility] though the cardiac rehab program. . Review of Systems Constitutional: Negative. HENT: Negative. [...] guarding. Genitourinary: Genitourinary Comments: Breast exam - deferred Musculoskeletal: She exhibits no edema. Lymphadenopathy: She [...] is normal. Vitals reviewed. Labs: WBC/ANC - 7.09/4799, Hgb/Hct - 14.2/44.6, Plts -124,000. 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 She was diagnosed [...] began femara, 2.5 mg per day. She is tolerating this well. The mammogram done in11/13 showed no evidence of malignancy. The dexa scan from 04/14 showed a decrease in BMD, meeting criteria for osteoporosis at the femoral neck. She is taking calcium with D regularly and has continued the femara. The repeat dexa scan in 04/15 again shows osteoporosis with very similar T-scores and a high fracture risk. Given this, we talked today about starting prolia or a bisphosphonate. Another option would be to change hormonal therapy from femara to tamoxifen. After discussion, the plan is to start reclast. We will check her renal function and, assuming this is ok, plan tos start the reclast at the time of her next visit in about 3months. She also has ITP. The platelet count [...] allowing for some fluctuation, has been stable for over a year. We will continue to monitor. documented in this encounter Plan of Treatment Upcoming Encounters Date Type Specialty Care Team Description 04/06/2022 Appointment Pulmonology 04/06/2022 Office Visit Pulmonology Matt Watson MD [facility] P[place]ARY [place], [place] [address] (Wo rk) documented as of this encounter Procedures Procedure Name Priority Date/Time Associated Comments Diagnosis LAB SCAN 04/16/2016 12:00 AM Results for this EST procedure are i n the results section. LAB SCAN 04/16/2016 12:00 AM Results for this EST procedure are i n the results section. DIAGNOSTIC RADIOLOGY 04/09/2016 12:00 AM Results for this SCAN EST procedure are i n the results section. documented in this encounter Results SCAN DOC: LAB (04/16/2016 12:00 AM EST) Narrative This result has an attachment that is no t available. Scanning Provider MEDIA MGR SCAN EXT ORDR/RSLT SCAN DOC: LAB (04/16/2016 12:00 AM EST) Narrative This result has an attachment that is no t available. Scanning Provider MEDIA MGR SCAN EXT ORDR/RSLT SCAN DOC: DIAGNOSTIC RADIOLOGY (04/09/2016 12:00 AM EST) Narrative This result has an attachment that is no t available. 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
--- OUTSIDE RECORDS SUMMARY | 2022-04-03 12:32 | XMS_ITS | Encounter Summary ---
:1935 Author Organization [facility] [place] [address] Care Team Providers Name Role Phone Matt Mcdonnell Primary Care Provider Reason for Visit Auth/Cert Specialty Diagnoses / Procedures Referred By Contact Refer red To Contact Diagnoses Acquired complete AV block CHB Procedures ELECTROPHYSIOLOGY PROCEDURE Referral ID Status Reason Start Date Expiration Date Visits Requ ested Visits Authorized [id number] 1 1 Encounter Details Date Type Department Care Team Description 06/04/2016 Office Visit Cardiology at [facility] Bismark Wade MD Complete AV block; [facility] Abn ormal coagulation profile [address] [place] [phone] Social History Tobacco Use Types Packs/Day Years [...] Sign Reading Time Taken Comments Blood Pressure 168/88 06/04/2016 7:59 AM EST Pulse 43 06/04/2016 7:59 AM EST Temperature - - Respiratory Rate - - Oxygen Saturation 95% 06/04/2016 7:59 AM EST Inhaled Oxygen Concentration - - Weight 83.7 kg (184 lb 8 oz) 06/04/2016 7:59 AM EST Height 149.9 cm (4' 11) 06/04/2016 7:59 AM EST Body Mass Index 37.26 06/04/2016 7:59 AM EST documented in this encounter Progress Notes Bismark Wade MD - 06/04/2016 8:00 AM EST Cardiac Electrophysiology Outpatient Consultation Referring: William Coyne MD [address] [place] [address] PCP: Matt Mcdonnell DO Reason for Consult: The patient has been referred by Willima Coyne for complete AV block. 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 She is referred by her head swamper, Dr. Beevrly, for consideration of permanent pacemaker implant. The patient is accompanied by her friend, Erica Ricks. The patient stopped cardiac rehabilitation at [place] in March 2016. She stopped Plavix in March 2016. She noted bradycardia by palpated pulse in the 40s in late March. She saw Dr. Beverly, who noted advanced AV block. Who weaned her down from metoprolol 50 mg twice a day down to nothing, by May 14, 2016. ECG done in his office on May 21 showed persistent complete AV block. The patient denies syncope. In early April she had an episode of mild lightheadedness while standing and making coffee, for a couple minutes. She notes new dyspnea on exertion with walking moderate distances or flights of stairs. Previously, she was limited by knee arthralgias and her left-sided car pal tunnel syndrome. She is happily cancel plans for upcoming carpal tunnel surgery, due to her complete AV block. She denies prior Mediport or PICC use. She has had external beam radiation to the right chest for her breast cancer. She did have right sided partial mastectomy with one sentinel lymph node removed. She is right-handed, and prefers a left sided implant. She has not had problems with sedation or anesthe enrique or antibiotics. She is nothing by mouth this morning, having last eaten last night, and not taken any water or pillsthis morning. Her last lab work for her immune thrombocytopenia was April 16, 2016, platelets done then were 117. [facility]. She denies tick bites. She denies erythema migrans rash. Her cat had a tick once. Review of Symptoms: Constitutional: no fevers, no chills, no weight changes ENT: no oral bleeding, no epistaxis CV: no chest pain, no angina, no syncope, no orthopnea Pulm: (+) KNOTT Abd: no hematochezia/melena Ext: (+)chronic left hand pain due to carpal tynnel Neuro: (+) chronic left foot numbness Skin: no rashes Psych: no depression, no anxiety Heme: no easy bleeding after stopping plavix : no hematuria Allergic: no antibiotic or sedation medication allergies Patient Active Problem List Diagnosis ??? Actinic keratosis ??? ST elevation (STEMI) myocardial infarction involving left anterior descending coronary artery ??? Acute systolic congestive heart failure ??? PAF (paroxysmal atrial fibrillation) ??? ITP (idiopathic thrombocytopenic purpura) ??? Breast cancer Outpatient Prescriptions Marked as Taking for the 06/04/16 encounter (Office Visit) with Bismark Wade MD Medication Sig Dispense Refill ??? acetaminophen (TYLENOL) 500 mg Tablet Take 1,000 mg by mouth every 6 hours as needed for Pain. ??? lisinopril (PRINIVIL;ZESTRIL) 20 mg Tablet Take 20 mg by mouth 2 times daily. ??? hydroCHLOROthiazide (HYDRODIURIL) 25 mg Tablet Take 25 mg by mouth daily. ??? letrozole (FEMARA) 2.5 mg Tablet Take 1 tablet by mouth daily. 90 tablet 3 ??? aspirin 81 mg Tablet, Chewable Take 81 mg by mouth daily. 30 tablet 3 ??? atorvastatin (LIPITOR) 80 mg Tablet Take 1 tablet by mouth every evening. 30 tablet 3 ??? nitroGLYcerin (NITROSTAT) 0.4 mg Tablet, Sublingual Place 1 tablet under the tongue every 5 minutes as needed for Chest pain. 90 tablet 12 ??? CALCIUM CARBONATE/VITAMIN D3 (CALCIUM 600 WITH VITAMIN D3 ORAL) ??? multivitamin (THERAGRAN) tablet Past Medical History Diagnosis Date ??? Cancer ??? Hypertension Past Surgical History Procedure Laterality Date ??? Pro removal of breast lesion 01/05/2013 EXCISION CYST, FIBROADENOMA, ABBERANT BREAST TISSUE,DUCT LESION,NIPPLE OR AREOLAR LESION (LUMPECTOMY) performed by Yakov Beck MD at [facility] MA[facility] OR ??? Pro mastectomy, partial 01/05/2013 MASTECTOMY PARTIAL performed by Yakov Beck MD at [facility] OR ??? Pro bx/remv, lymph node, deep axill 01/05/2013 BIOPSY OR EXCISION OF LYMPH NODE(S), OPEN, DEEP AXILLARY NODE(S) performed by Yakov Beck MD at [facility] OR ??? Pro identify sentinel node 01/05/2013 SENTINEL NODE INJECTION performed by Yakov Beck MD at [facility] MA[facility] OR ??? Breast biopsy Left 07/2003 ??? Breast biopsy Right 12/2012 ??? Breast lumpectomy Right 12/2012 ??? Breast cyst excision Left 12/2012 Tonsillectomy and use, appendectomy new, cervical polyp removal, left breast biopsy 2003, D&C for postmenopausal bleeding 2003, JIN,/BSO in 2004, left knee arthroscopy in October 2012, left breast biopsy and right breast partial mastectomy in December 2012, iridotomy for closed angle glaucoma Allergies: Allergies Allergen Reactions ??? Celebrex [Celecoxib] Other (See Comments) Hypotension, tachycardia per patient ??? Norvasc [Amlodipine] Other (See Comments) Causes edema to lower extremities Social History: Patient lives alone with her cat. 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 She is independent without a cane or a walker. She is a never smoker. She drinks alcoholrarely. Family History: Father at age 75 of gastric lymphoma. Mother at age 70 of stroke. One brother has coronaryartery disease with prior CABG. Physical Exam: BP 168/88 Pulse (!) 43 Ht (!) 149.9 cm (4' 11) Wt 83.7 kg (184 lb 8 oz) SpO2 95% BMI 37.26 kg/m2 General: In no acute distress, nondiaphoretic, nontachypneic Psych: Alert, oriented x 3, normal affect and mood ENT: clear oropharynx, moist mucous membranes Neck: midline trachea, supple neck, jugular vein 7 cm (visible and not distended), Mallampati class 4 oropharynx Cardiac: S1S2 regularly regular, no murmurs/rubs/gallops, no RV heave, PMI nondisplaced Lungs: Clear to auscultation bilaterally, no wheezes/rales/rhonchi Abdomen: soft, NT/ND, no masses, (+) reducible umbilical hernia Ext: no clubbing, cyanosis or edema. Skin: no rashes or scars on chest Back: no kyphosis or scoliosis Diagnostics: ECG today: sinus rhythm with complete AV block and junctional escape rhythm in the 40s. CBC 04/16/16 Hemoglobin 14.2 g/dL Platelets 124 ECG 05/21/2016: sinus rhythm with complete AV block and junctional escape rhythm at 42 bpm ECG 05/14/2016: sinus rhythm and junctional escape rhythm in the 40s Last echocardiogram 10/31/2015, from Dr. Coyne???s [place] office: LVEF 58%, no WMAs No significant valvular disease (mild MR) RV normal No pericardial disease Assessment/Plan: Barbara Casarez is a 80 y.o. 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 She is referred by her head swamper,Dr. Beverly, for consideration of permanent pacemaker implant. It appears to be block at the level of the AV node, with a stable junctional escape rhythm. Her complete heart block does not appear to be due to any reversible cause, as beta blockers were stopped weeks ago. It is most likely a consequence of aging, prior radiation therapy and coronary artery disease. She is symptomatic, with lightheadedness and NYHA class II dyspnea on exertion. I reviewed the benefits and risks (Short term: infection, bleeding, pneumothorax, cardiac tamponade,acute lead dislodgement, [place]/stroke/ adjunct faculty for medical terminology: infection, device malfunction). I also reviewed activity restrictions (no sudden or marked ipsilateral arm movements for 6 weeks post-procedure) and f ollow up (needs regular checks every few months, and generator change in 5-13 years). We reviewed the risks and benefits of permanent pacemaker implantation, written consent obtained andscanned. She is agreeable to undergoing a left-sided DDD pacemaker under conscious sedation today. This has been scheduled for today, as she is NPO. She will use hibiclens this morning. Recommendations: ?? Left-sided DDD pacemaker under conscious sedation, needs left arm IV ?? Full code during and after procedure ?? cefazolin 2 grams ?? overnight stay after uncomplicated procedure ?? Per patient, outpatient pacemaker follow up in Dr. Coyne's office is gabriel Wade MD Cardiac Electrophysiology Kannan Attending Physician Daytime I spent 45 of the 60 minutes in [id number] time with the patient, counselling them on their cardiovascular diagnoses. Additional time spent coordinating care for implant today. documented in this encounter Plan of Treatment Upcoming Encounters Date Type Specialty Care Team Description 04/06/2022 Appointment Pulmonology 04/06/2022 Office Visit Pulmonology Matt Watson MD [facility] PULMONARY [place], [place] [address] (Wo rk) documented as of this encounter Procedures Procedure Name Priority Date/Time Associated Comments Diagnosis ELECTROPHYSIOLOGY Routine 06/04/2016 3:05 Complete AV block Re sults for this PROCEDURE PM EST procedure are i n the results section. EKG 12-LEAD Routine 06/04/2016 7:56 Complete AV block Results for this AM EST procedure are i n the results section. documented in this encounter Results ELECTROPHYSIOLOGY PROCEDURE (06/04/2016 3:05 PM EST) Anatomical Region Laterality Modality Other Specimen (Source) Anatomical Location Collection Method / Collectio n Time Received Time / Laterality Volume Narrative 07/07/2016 9:48 AM EST DDDR Pacemaker Implantation, Moderate Sedation Indication for pacing: Acquired complete (also referred to as third-degree) AV heart block. Operators: ??Bismark Wade MD Procedure: ??The patient was brought to the Electrophysiology Lab in the fasting state and continuous electrocard iographic monitoring was instituted. ??Moderate sedation was perf ormed with incremental doses of midazolam and fentanyl. The left subclavicular fossa was prepped and draped in the usual sterile fashion and a 2:3 mixture of 2% lidocain e and 0.5% bupivicaine was instilled for local anesthesia and posto perative analgesia. ??The incision was made and the dissection was carried down to the level of the pectoralis major fascia where a subcutan eous pocket was formed using blunt and sharp dissection. The axillary vein was entered with an 18 gauge thin walled needle without difficulty, guided by ultrasonography and guide wires were advanced into the central dante ous circulation. ??Using the retained guide wires and two introducer sheaths, the leads were advanced to the right ventricle and right atrium under fluoroscopic guidance. Each leads was anchored to the underlying pec toralis major fascia with a single stitch of 0 silk. The leads were attached to a DDDR pacema ker pulse generator, which was placed in the previously formed pocket w ith the electrodes situated beneath it after it had been flushed wit h Neosporin antibiotic solution. The pulse generator was sutured to the u nderlying pectoralis major fascia with a stitch of 0 silk. Final Parameters: Ventricular electrode: ?? Medtronic CapsureFix Model# 5076-52 cm S erial# [id number] ? Bipolar, steroid-tipped, active-fixati on IS-1 lead ? Access: ? Left Axillary vein ? Location: ?Right ventricular apex ? R wave, PSA: ? 7.3 mV ? R wave, pacemaker: ?5.3 mV ? Pacing threshold, PSA: ??0.8 V at 0.5 ms ? Pacing threshold, pacemaker: 0.75 V at 0.4 ms ? Impedance, PSA: ?? 577 ohms ? Impedance, pacemaker: ??494 ohms ? Pace the diaphragm at 10 V: ??No Atrial electrode: ?? Medtronic CapsureFix Model# 5076-45 cm S erial# [id number] ? Bipolar, steroid-tipped, active-fixati on IS-1 lead ? Access: ? Left Axillary vein ? Location ? Right atrial appendage ? P wave, PSA: ? 3.7 mV ? P wave, pacemaker: ?? 3.8 mV ? Pacing threshold, PSA: ??0.7 V at 0.5 ms ? Pacing threshold, pacemaker: 0.75 V at 0.4 ms ? Impedance, PSA: ?? 440 ohms ? Impedance, pacemaker: ??380 ohms ? Pace the diaphragm at 10 V: ??No Pulse generator: ? Medtronic Codie PRICE Model# A2DR01 Serial # [id number] ? DDDR Pacemaker ? Location: ?Subcutaneous/prepectora l The wound was closed with 2 layers of in terrupted stitches of 2-0 Monocryl, then the skin was closed with a subcuticular stitch of 4-0 Monocryl Plus. ??Medical adhesive ([place] jarvis) was applied to the incision which was covered with a nonadherent occ lusive dressing. Cinefluoroscopy documented the final implant positions. The patient tolerated the procedure well . Antibiotic: cefazolin 2 grams IV at 1:31 PM Incision: 1:46PM Estimated blood loss: <10 cc Fluoroscopy time: 3.4 minutes. ??Total d ose: 867 cGy-cm2 Sedation medication totals: fentanyl 125 mcg, midazolam 2.5 mg IV Contrast use: none Sedation time: 1:40-3:05PM, 85 minutes Bismark Wade MD was present and partic ipated in all ellison portions. Bismark Wade MD EP PROCEDURE ORDERABLES Prothrombin Time (06/04/2016 12:00 PM EST) P athologist Signature PT 14.1 12.0 - 15.0 [facility] Comment: An INR <2.0 indicates adequate procoagul ant activity for hemostasis in most patients without underlying bleeding dis orders, though the INR may not adequately reflect hemostatic capacity i n patients with liver disease and synthetic impairment. The recommended ta rget INR range for therapeutic anticoagulation is 2.0 ? 3.0 for most applications, though lower and higher ranges may be appropriate depending on c linical circumstances. INR 1.0 0.9 - 1.1 [facility] Specimen Anatomical Collection Method Collection Time Receive d Time (Source) Location / / Volume Laterality Blood specimen 06/04/2016 12:00 7 (specimen) PM EST 12:08 PM EST Resulting Agency Comment Spec In Lab Bismark Wade MD HEMATOLOGY ORDERABLES Performing Organization Address City/State/Z[place] [address] (ABNORMAL) Basic Metabolic Panel (non-fasting) (06/04/2016 12:00 PM EST) athologist Signature Glucose Lvl 100 65 - 199 [facility] mg/dL [facility] Comment: Diabetes: >=200 mg/dL plus symp toms BUN 19 (H) 8 - 18 mg/dL [facility] Creatinine 0.89 0.70 - 1.20 mg/dL [facility] Comment: Please note that the pediatric reference intervals supplied above were not validated at [facility]. Results from pediatri c patients should be interpreted in conjunction to the patient's age, height and muscle mass. Sodium 146 (H) 135 - 145 mmol/L [facility] Potassium 3.8 3.5 - 5.0 mmol/L [facility] Comment: Please note: ??Patients with WBC >100,00 0 may have falsely elevated Potassium levels. ??For accurate Potassium quantif ication in these patients send serum separator tube (gold top) for subsequent determinations. ??Contact the Clinical Chemistry Laboratory if there are any qu estions. Chloride 105 98 - 107 mmol/L [facility] CO2 25 22 - 31 mmol/L [facility] Anion Gap 16 (H) 5 - 15 mmol/L [facility] Calcium 9.2 8.5 - 10.5 mg/dL [facility] Estimated GFR >60 >=60 [facility] Comment: This estimated GFR (eGFR) value was calc ulated using the MDRD equation which has been validated on patients between t he ages of 18 and 70. The MDRD should not be used to assess kidney function in patients < 18 years of age or in patients with extremes of body mass, or in patients with acute kidney failure. This value should be multiplied by 1.2 f or patients. For further information please copy and past e the following links into your internet browser. http://[email or web address]/DHnkdep http://Spotbros/DHMCnkf Specimen Anatomical Collection Method Collection Time Receive d Time (Source) Location / / Volume Laterality Blood specimen 06/04/2016 12:00 7 (specimen) PM EST 12:08 PM EST Resulting Agency Comment Spec In Lab Bismark Wade MD CHEMISTRY ORDERABLES Performing Organization Address City/[facility] [place] [address] EKG 12 Lead (06/04/2016 7:56 AM EST) Component Value Ref Range Test Analysis Performed Pathologis t Method Time At Signature Ventricular rate 41 BPM MUSE SYSTEM Atrial Rate 81 BPM MUSE SYSTEM QRS Duration 90 ms MUSE SYSTEM Q-T Interval 492 ms MUSE SYSTEM QTC Calculated 405 ms MUSE SYSTEM (Bezet) Calculated P [place] 77 degrees MUSE SYSTEM Calculated R [place] -33 degrees MUSE SYSTEM Calculated T [place] 69 degrees MUSE SYSTEM INTERPRETATION AV dissociation (complete he art block) with junctional escape rhythm MUSE SYSTEM Left axis deviation T wave abnormality, consider lateral ischemia Abnormal ECG When compared with ECG of 26-APR-2015 11:30, complete heart block is new. ??EP aware. Confirmed by MD YUSRA, PEGGY ([id number]) on 06/04/2016 3:17:51 PM Specimen Anatomical Collection Method Collection Time Receive d Time (Source) Location / / Volume Laterality 06/04/2016 7:56 AM 7 3:17 EST PM EST Bismark Wade MD ECG ORDERABLES Performing Organization Address City/[facility] Phon e Number MUSE SYSTEM documented in this encounter Visit Diagnoses Diagnosis Complete AV block Atrioventricular block, complete Abnormal coagulation profile Abnormal coagulation profile Complete AV block Atrioventricular block, complete documented in this encounter Care Teams Mold Stacker Relationship Specialty Start Date End Date Matt Mcdonnell DO PCP - General 11/15/12 11/29/19 [address] [place] [address] documented as of this encounter
--- OUTSIDE RECORDS SUMMARY | 2022-04-03 12:32 | XMS_ITS | Encounter Summary ---
:1935 Author Organization [facility] [place] [address] Care Team Providers Name Role Phone Matt Mcdonnell Martha KHAN Primary Care Provider Reason for Visit Reason Comments IV Medication IV Reclast Encounter Details Date Type Department Care Team Description 10/02/2016 Infusion Hematology Oncology at [facility] neoplasm of female [facility] breast, unspecified [address] [place] [address] laterality, unspecified site [place], [place] [phone] of breast [phone] Social History Tobacco Use Types Packs/Day Years [...] documented as of this encounter Progress Notes Elena Lawrence, RN - 10/02/2016 2:30 PM EDT INFUSION THERAPY ADMINISTRATION NOTES DIAGNOSIS: Breast cancer, on Femara, osteoporosis prevention CYCLE #: NA REASON FOR VISIT: To receive Reclast SUBJECTIVE: Barbara offers no complaints. OBJECTIVE: Seen by provider. First time infusion of Reclast. LAB DATA: 10/01/16--WBC - 9.4, H/H - 13.2/42.5, Plt Ct - 179, ANC - 6.6, Lytes wnl, BUN/CR - 23/0.76 IV ACCESS: PIV Pre administration: Medication orders independently verified for drug name, route, and dosage per patient's height, weight and BSA by Laurent Lawrence RN and Marge Segura [facility]. Patient verbalized she had had periodontal cleaning on Wednesday. Dr. Feliciano notified and after discussion stated to proceed with the infusion. Patient information on Reclast given to patient and reviewed prior to administration. Patients questions were answered. REACTIONS (DESCRIPTION, TIME, INTERVENTION AND EFFECTIVENESS) none ASSESSMENT: Barbara was awake, alert and tolerated treatment well. She verbalized how and when to call the clinic. PIV discontinued prior to dismissal. PLAN: Return to clinic per routine. documented in this encounter Plan of Treatment Upcoming Encounters Date Type Specialty Care Team Description 04/06/2022 Appointment Pulmonology 04/06/2022 Office Visit Pulmonology Matt Watson MD [facility] PULMONARY [place], [place] [address] (Wo rk) documented as of this encounter Procedures Procedure Name Priority Date/Time Associated Diagnosis Comme nts CHEMOTHERAPY SCAN 10/02/2016 12:00 AM Res ults for this EDT procedure are i n the results section. documented in this encounter Results SCAN DOC: CHEMOTHERAPY (10/02/2016 12:00 AM EDT) Narrative 10/02/2016 12:00 AM EDT This result has an attachment that is no t available. Ordered by an unspecified provider. Scanning Provider MEDIA MGR SCAN EXT ORDR/RSLT documented in this encounter Visit Diagnoses Diagnosis Malignant neoplasm of female breast, uns pecified laterality, unspecified site of breast documented in this encounter Administered Medications Inactive Administered Medications - up to 3 most recent administrations Medication Order MAR Action Action Date Dose Rate Site zoledronic acid (RECLAST) 5mg New Bag 10/02/2016 3:35 PM EDT 5 mg 400 mL/hr in mannitol and water 100mL 5 mg, Intravenous, ONCE, 1 dose, On Wed10/02/16 at 1530, Administer over 15 Minutes, Creatinine Clearance = 59 mL/min, calculated using actual body weight of 82 kg. Actual SCr is 0.76, but due to age (80 years), assumed SCr of 1.0 for better approximation of actual renal function. Hold dose for CrCl< 35 mL/min. Do not mix with IV Calcium-containing products. Warning Vesicant/Irritant Medication documented in this encounter Care Teams Mud Mixer Operator Relationship Specialty Start Date End Date Matt Mcdonnell DO PCP - General 11/15/12 11/29/19 [address] [place] [address] documented as of this encounter
--- OUTSIDE RECORDS SUMMARY | 2022-04-03 12:32 | XMS_ITS | Encounter Summary ---
:1935 Author Organization [place] [address] Care Team Providers Name Role Phone Matt Mcdonnell DO Primary Care Provider Reason for Visit Reason Onset Date Comments Labs Only 06/07/2015 Lab Tracking Encounter Details Date Type Department Care Team Description 06/07/2015 Telephone Hematology/Oncology at Marilia Jay L abs Only (Lab [facility] RN Tracking) [address] [place] [phone] Social History Tobacco Use Types Packs/Day [...] this encounter Miscellaneous Notes Telephone Encounter - Marilia Jay RN - 06/07/2015 3:21 PM EST Labs drawn at [facility] 06/06/2015 Platelet count [address] Feliciano. Patient to have labs drawn in 1 month. Notified patient of Platelet count and instructions for labs in 1 month. Patient states understanding. documented in this encounter Plan of Treatment Upcoming Encounters Date Type Specialty Care Team Description 04/06/2022 Appointment Pulmonology 04/06/2022 Office Visit Pulmonology Matt Watson MD [facility] PULMONARY [place] Patel [place], [place] [address] (Wo rk) documented as of this encounter Visit Diagnoses Not on filedocumented in this encounter Care Teams Heating Operators Engineer Relationship Specialty Start Date End Date Matt Mcdonnell, PCP - General 11/15/12 11/29/19 [address] [place], [place] [id number] documented as of this encounter
--- OUTSIDE RECORDS SUMMARY | 2022-04-03 12:32 | XMS_ITS | Encounter Summary ---
:1935 Author Organization [facility] [place] [address] Care Team Providers Name Role Phone FritzMatt hollins Martha KHAN Primary Care Provider Reason for Visit Reason Onset Date Comments Labs Only 11/22/2015 Encounter Details Date Type Department Care Team Description 11/22/2015 Telephone Hematology/Oncology at Aleah Figueroa RN Labs Only [place] [phone] Social History Tobacco Use Types Packs/Day [...] Telephone Encounter - Aleah Figueroa RN - 11/22/2015 10:26 AM EDT Reviewed CBC from November [address] Feliciano, he stated everything looked good and pt does not need labs again until dec 2015 when he sees her again. Reviewed with pt she agrees with plan. documented in this encounter Plan of Treatment Upcoming Encounters Date Type Specialty Care Team Description 04/06/2022 Appointment Pulmonology 04/06/2022 Office Visit Pulmonology Matt Watson MD [facility] MED[facility] ER PULMONARY [address], [place] [address] (Wo rk) documented as of this encounter Visit Diagnoses Not on filedocumented in this encounter Care Teams Marketing Mgr Relationship Specialty Start Date End Date Matt Mcdonnell DO PCP - General 11/15/12 11/29/19 [address] [place] [address] documented as of this encounter
--- OUTSIDE RECORDS SUMMARY | 2022-04-03 12:32 | XMS_ITS | Encounter Summary ---
:1935 Author Organization [facility] [place] [address] Care Team Providers Name Role Phone Matt Mcdonnell Martha KHAN Primary Care Provider Reason for Visit Reason Comments Bradycardia Encounter Details Date Type Department Care Team Description 06/15/2016 Office Visit Cardiology at [facility] Elizabeth Marin Acquired complete AV [facility] A, [place] [phone] Social History Tobacco Use Types Packs/Day Years [...] Sign Reading Time Taken Comments Blood Pressure 145/89 06/15/2016 9:47 AM EST Pulse 87 06/15/2016 9:47 AM EST Temperature - - Respiratory Rate - - Oxygen Saturation 96% 06/15/2016 9:47 AM EST room ai r Inhaled Oxygen Concentration - - Weight 83.9 kg (184 lb 14.4 oz) 06/15/2016 9:47 AM EST Height 147.3 cm (4' 10) 06/15/2016 9:47 AM EST Body Mass Index 38.64 06/15/2016 9:47 AM EST documented in this encounter Progress Notes Elizabeth Marin, BLAS - 06/15/2016 10:00 AM EST Images from the original note were not included. Clinical Electrophysiology Device Service Note Barbara Casarez is a 80 y.o. 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 She is followed in [place], [place], and was set up with remote Glipho monitoring today using her iphone. Final Parameters at implant: Ventricular electrode: Medtronic CapsureFix Model# 5076-52 cm Serial# [id number] ?? Bipolar, steroid-tipped, active-fixation IS-1 lead ?? Access: Left Axillary vein ?? Location: Right ventricular apex ?? R wave, PSA: 7.3 mV ?? R wave, pacemaker: 5.3 mV ?? Pacing threshold, PSA: 0.8 V at 0.5 ms ?? Pacing threshold, pacemaker: 0.75 V at 0.4 ms ?? Impedance, PSA: 577 ohms ?? Impedance, pacemaker: 494 ohms ?? Pace the diaphragm at 10 V: No 1. ?? 2. Atrial electrode: 3. Medtronic CapsureFix Model# 5076-45 cm Serial# [id number] ?? Bipolar, steroid-tipped, active-fixation IS-1 lead ?? Access: Left Axillary vein ?? Location Right atrial appendage ?? P wave, PSA: 3.7 mV ?? P wave, pacemaker: 3.8 mV ?? Pacing threshold, PSA: 0.7 V at 0.5 ms ?? Pacing threshold, pacemaker: 0.75 V at 0.4 ms ?? Impedance, PSA: 440 ohms ?? Impedance, pacemaker: 380 ohms ?? Pace the diaphragm at 10 V: No 1. ?? 2. Pulse generator: PO-MO Advisa Model# A2DR01 Serial# [id number] ?? DDDR Pacemaker ?? Location: Subcutaneous/prepectoral Settings: DDDR 60/120/120 Underlying rhythm: Sinus rhythms with ventricular paced Atrial Lead: P wave: 2.4 mV Impedance: 380 ohms Threshold: 1.25V @ 0.4 msec Ventricular Lead: R wave: > 20 mV Impedance: 532 ohms Threshold: 0.75V @ 0.4 msec Pacing percentages: AP 18 %; TUTOR COORDINATOR 100 % Mode switch episodes: 1 event on Jun 11 that lasted 36 hours. The patient is not on anticoagulation. She had her beta omar decreased prior to device implant. She will contact Dr. Jimenez today to discuss increasing this again. VHR: none Battery voltage: 3.10V Wound assessment: Healing well. Reprogramming: None today Plan: Patient will have follow up with Dr. Garza including 91 day check. Provider: ELIZABETH MARIN RN Attending: Dr. Maldonado Roberto Maldonado MD - 06/15/2016 10:00 AM EST Cardiac Electrophysiology Attending Note Cardiac Rhythm Device Clinic This patient was seen in the Cardiac Rhythm Device Clinic for which I provided supervision on June 15, 2016. I have overread and reviewed the pacemaker interrogation data, which also is partially summarized in Elizabeth Marin's note. Comments (interval data since last reset June 05, 2016): Cell Voltage: Acceptable Estimated longevity : New pacemaker Presenting Rhythm: Ventricular paced sinus rhythm Programmed iterative changes were made to the voltage and/or pulse widthof the output to the pacing leads (+/- appropriate temporary pacing mode and rate) in order to assess the capture threshold... Atrial Lead: Acceptable atrial lead capture threshold, sensing, and impedance Atrial pacing 18.1% Atrial high rate episodes detected: AT/AF 15.1% (35 hour episode) Right Ventricular Lead: Acceptable ventricular lead capture threshold, sensing, and impedance Ventricular pacing 99.9% Ventricular high rate episodes detected: None Conclusion: Normal device function. Ventricular pacing ~100%. Atrial flutter/fibrillation detected. Programming: Thresholds assessed. Counters cleared. Recommend: Follow up with Dr. Coyne for consideration of anticoagulation to mitigate risk for thromboembolicevents. __ Roberto Maldonado MD, [facility] Cardiac Electrophysiology documented in this encounter Plan of Treatment Upcoming Encounters Date Type Specialty Care Team Description 04/06/2022 Appointment Pulmonology 04/06/2022 Office Visit Pulmonology Matt Watson MD [facility] MED[facility] ER PULMONARY TURNER Pat[address] [place], [place] [address] (Wo rk) documented as of this encounter Visit Diagnoses Diagnosis Acquired complete AV block Atrioventricular block, complete documented in this encounter Care Teams Manager Client Service Relationship Specialty Start Date End Date Matt Mcdonnell DO PCP - General 11/15/12 11/29/[address] [place] [id number] documented as of this encounter
--- OUTSIDE RECORDS SUMMARY | 2022-04-03 12:32 | XMS_ITS | Encounter Summary ---
:1935 Author Organization [facility] [place] [address] Care Team Providers Name Role Phone RoMatt dejesus Martha KHAN Primary Care Provider Encounter Details Date Type Department Care Team Description 10/11/2015 Office Visit Hematology/Oncology Yao Feliciano neoplasm of right female breast, unspecified site of breast; at [facility] MD Marisela ITP (idiopathic thrombocytopenic purpura ) [address] [place] [phone] ONCOLOGY [phone] [place] [id number] Social History Tobacco Use Types Packs/Day Years [...] Sign Reading Time Taken Comments Blood Pressure 152/67 10/11/2015 1:16 PM EDT Pulse 71 10/11/2015 1:16 PM EDT Temperature 36.8 ??C (98.2 ??F) 10/11/2015 1:16 PM EDT Respiratory Rate 16 10/11/2015 1:16 PM EDT Oxygen Saturation 97% 10/11/2015 1:16 PM EDT Inhaled Oxygen Concentration - - Weight 83.6 kg (184 lb 5 oz) 10/11/2015 1:16 PM EDT Height 147.3 cm (4' 9.99) 10/11/2015 1:16 PM EDT Body Mass Index 38.53 10/11/2015 1:16 PM EDT documented in this encounter Progress Notes Yao Feliciano MD - 10/10/2015 11:39 AM EDT Subjective: Patient ID: Barbara Casarez is a 79 y.o. female. Problem List: 1. 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 A. Screening mammogram 11/15/12 [...] cancer cells with immunostaining) Stain Intensity: Strong KS immunoreactivity: Positive (>90% cancer cells with immunostaining) [...] Type: Invasive ductal carcinoma Tumor Grade: Low Nfzkfe-Xwolh-Qzcetpphyo Score: 5 Tubular Differentiation: 2 Mitotic Rate: 1 Nuclear Grade: 2 Tumor Size: 0.7 cm (maximum diameter) In Situ Histologic Type: Not identified (present in the core bx [id number]) Microcalcifications: Not identified Angiolymphatic Invasion: Not identified [...] 04/07/13 - started femara H. Bilateral mammogram 11/19/14 - LEFT BREAST MAMMOGRAPHY This is an indeterminate (ACR Category 0) mammogram of the LEFT breast. There are calcifications inthe upper, outer Left breast, requiring additional imaging. RIGHT BREAST MAMMOGRAPHY This is a negative mammogram (ACR Category 1). There is a stable fibroglandular pattern without significant change as compared to prior studies. There is no mammographic evidence of cancer. The breasts are of scattered density. CONCLUSION ASSESSMENT IS INCOMPLETE: Needs additional imaging evaluation (ACR Category 0) of the Left breast. [facility] will contact the patient to schedule additional imaging. The contralateral breast is NEGATIVE (ACR Category 1). Routine screening mammography is recommendedof the Right breast with the frequency dependent on the patient's age and breast cancer risk factors. 12/03/14 additional imaging - IMPRESSION: No mammographic evidence of malignancy with additional imaging of the left breast. Resume routine screening. BI-RADS 1 negative. 2. ITP. A. Found to have low [...] 4 doses on 11/02/14 3. ASCVD s/p WI with v fib arrest in 04/14 s/p [...] L-spine and proximal femurs. 04/14 - osteoporosis HPI Ms. Casarez returns in f/u of [...] 11/02/14. On presentation today, she is feeling well. She has continued knee pain. This is about the same. Shetakes ES tylenol once or twice a day and this does help. She is getting arthrovisc for the knee. Herappetite is good and her weight is about the same. She continues to go to cardiac rehab. She was recently found to be in a fib when she went to rehab. Her metoprolol dose was increased and she says she is back in NSR. Her energy level is fairly good. She is traveling to [place] next week to see her daughter. Review of Systems Constitutional: Negative. HENT: Negative. [...] no tenderness. There is no guarding. Genitourinary: Breast exam - No skin dimpling or puckering and no discrete masses noted in either breast. Musculoskeletal: She exhibits no edema. Lymphadenopathy: She [...] is normal. Vitals reviewed. Labs: WBC/ANC - 8.05/5599, Hgb/Hct - 14.6/44.7, Plts -108,000. BUN/Cr - 12/0.9. 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 She was diagnosed [...] she began femara, 2.5 mg per day. Thus far, she is tolerating this well and we will plan to continue. She is due for a mammogram next month. This is already scheduled. We will plan to f/u on that. She generally gets a report after this is done. If she does not, I have asked her to callus. The dexa scan shows a decrease in BMD, now meeting criteria for osteoporosis. She has been on calcium with vitamin D but has not been taking that consistently. In the past, she had been on fosamax but really does not want to restart that. She is going to take the calcium with D more regularly and will continue the femara. We will plan to repeat the dexa scan in a year. She also has ITP. The platelet count [...] for some fluctuation, has been stable for several months. We will continue to monitor. We will check the platelets in 6 weeks and see again in about 3 months. documented in this encounter Plan of Treatment Upcoming Encounters Date Type Specialty Care Team Description 04/06/2022 Appointment Pulmonology 04/06/2022 Office Visit Pulmonology Matt Watson MD [facility] PULMONARY TURNER [facility], [place] [address] (Wo rk) documented as of this encounter Procedures Procedure Name Priority Date/Time Associated Diagnosis Comme nts LAB SCAN 11/21/2015 12:00 AM EDT documented in this encounter Results SCAN DOC: LAB (11/21/2015 12:00 AM EDT) Narrative This result has an attachment that is no t available. Scanning Provider MEDIA MGR SCAN EXT ORDR/RSLT documented in this encounter Visit Diagnoses Diagnosis Malignant neoplasm of right female breas t, unspecified site of breast ITP (idiopathic thrombocytopenic purpura ) Immune thrombocytopenic purpura documented in this encounter Care Teams Welder Plastic Relationship Specialty Start Date End Date Matt Mcdonnell, PCP - General 11/15/12 11/29/19 [address] [place] [address] documented as of this encounter
--- OUTSIDE RECORDS SUMMARY | 2022-04-03 12:32 | XMS_ITS | Encounter Summary ---
:1935 Author Organization [facility] [place] [address] Care Team Providers Name Role Phone Matt Mcdonnell Martha KHAN Primary Care Provider Encounter Details Date Type Department Care Team Description 01/15/2017 Office Visit Hematology/Oncology Kayleen Ghosh Mali gnant neoplasm of at [facility] INSPECTOR HOT FORGINGS female breast, [address] [facility] unspecified estrogen [place], [place] [facility] [place] receptor status, [phone] [place] [address] unspecified [phone] (Wo rk) laterality, unspecifi ed site of breast Social History Tobacco Use Types [...] Sign Reading Time Taken Comments Blood Pressure 146/54 01/15/2017 9:54 AM EDT Pulse 91 01/15/2017 9:54 AM EDT Temperature 36.3 ??C (97.3 ??F) 01/15/2017 9:54 AM EDT Respiratory Rate 16 01/15/2017 9:54 AM EDT Oxygen Saturation 98% 01/15/2017 9:54 AM EDT Inhaled Oxygen Concentration - - Weight 82.6 kg (182 lb) 01/15/2017 9:54 AM EDT Height 147 cm (4' 9.87) 01/15/2017 9:54 AM EDT Body Mass Index 38.2 01/15/2017 9:54 AM EDT documented in this encounter Progress Notes Kayleen Ghosh, INSPECTOR HOT FORGINGS - 01/15/2017 9:45 AM EDT Subjective: Patient ID: Barbara Casarez is a 81 y.o. female. Problem List: 1. Cancer of the right breast, [id number], stage IA, low grade, ER/NM positive, Her-2/veronica negative. A. Screening mammogram 11/15/12 [...] cancer cells with immunostaining) Stain Intensity: Strong NM immunoreactivity: Positive (>90% cancer cells with immunostaining) [...] Type: Invasive ductal carcinoma Tumor Grade: Low Nwofao-Sfnhs-Cdvpvorsee Score: 5 Tubular Differentiation: 2 Mitotic Rate: 1 Nuclear Grade: 2 Tumor Size: 0.7 cm (maximum diameter) In Situ Histologic Type: Not identified (present in the core bx [id number]) Microcalcifications: Not identified Angiolymphatic Invasion: Not identified [...] 4 doses on 11/02/14 3. ASCVD s/p CT with v fib arrest in 04/14 s/p [...] 42, IgG - 424, IgM - 23. [place] to be related to rituxan. Given lack of frequent infections, no intervention recommended. 9. 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 Left hip fracture 07/2016, s/p ORIF after she fell on the stairs . S/p JIN/BSO HPI Ms. Casarez returns in [...] weekly doses on 11/02/14. On presentation today, She is doing quite well following a hip replacement after a fracture, and a pacemaker placement for 2nd degree AV block. No issues with bleeding. Mild pain in L hip residual after surgery and is still in PT 7mo out but overall doing great. Notes carpal tunnel in L hand but she isn't going to pursue that until next year. Review of Systems Constitutional: Negative. HENT: Negative. Eyes: Negative. Respiratory: Negative. Cardiovascular: Negative. Gastrointestinal: Negative. Genitourinary: Negative. Musculoskeletal: Positive for arthralgias. Skin: Negative. Neurological: Negative. Psychiatric/Behavioral: Negative. BP 146/54 (Patient Position: Sitting) Pulse 91 Temp 36.3 ??C (97.3 ??F) (Oral) Resp 16 Ht (!) 147 cm (4' 9.87) Wt 82.6 kg (182 lb) SpO2 98% BMI 38.2 kg/m2 Wt Readings from Last 3 Encounters: 01/15/17 82.6 kg (182 lb) 10/02/16 82.1 kg (181 lb) 06/15/16 83.9 kg (184 lb 14.4 oz) Objective: Physical Exam Constitutional: She is oriented [...] Her behavior is normal. Vitals reviewed. Labs: 01/14/17 CBC: WBC 8.3 HgB 14.1 Plts 188 Date Plts 01/14/17 188 10/01/16 179 04/16/16 124 02/20/16 [...] The repeat dexa scan in 04/15 again showed osteoporosis with very similar T-scores and a high fracture risk. She suffered a fracture of her left hip related to a fall and subsequently was put on Reclast and continues on Femara with a 3mo fwup interval. Bilateral mammogram on 11/10/16 was negative. She also has ITP. The platelet count [...] fluctuation, has been stable for over a year and if fact the most recent platelet count is WNL. We will continue tomonitor this and will recheck it in three months. Kayleen Ghosh, MSN, FOLDING MACHINE OPERATOR, AOCN Hematology/Oncology Nurse Practitioner [place], [place] [phone] documented in this encounter Plan of Treatment Upcoming Encounters Date Type Specialty Care Team Description 04/06/2022 Appointment Pulmonology 04/06/2022 Office Visit Pulmonology Matt Watson MD [facility] PULMONARY TURNER Pat[address] [place], [place] [address] (Wo rk) documented as of this encounter Procedures Procedure Name Priority Date/Time Associated Diagnosis Comme nts LAB SCAN 04/14/2017 12:00 AM Results for this EST procedure are i n the results section . LAB SCAN 01/14/2017 12:00 AM Results for this EDT procedure are i n the results section . documented in this encounter Results SCAN DOC: LAB (04/14/2017 12:00 AM EST) Narrative 04/14/2017 12:00 AM EST This result has an attachment that is no t available. Ordered by an unspecified provider. Scanning Provider MEDIA MGR SCAN EXT ORDR/RSLT SCAN DOC: LAB (01/14/2017 12:00 AM EDT) Narrative 01/14/2017 12:00 AM EDT This result has an attachment that is no t available. Ordered by an unspecified provider. Scanning Provider MEDIA MGR SCAN EXT ORDR/RSLT documented in this encounter Visit Diagnoses Diagnosis Malignant neoplasm of female breast, uns pecified estrogen receptor status, unspecified laterality, unspecified site of breast documented in this encounter Care Teams Algologist Relationship Specialty Start Date End Date Matt Mcdonnell DO PCP - General 11/15/12 11/29/19 [address] [place] [address] documented as of this encounter
--- OUTSIDE RECORDS SUMMARY | 2022-04-03 12:32 | XMS_ITS | Encounter Summary ---
:1935 Author Organization [facility] [place] [address] Care Team Providers Name Role Phone Matt Mcdonnell Martha KHAN Primary Care Provider Encounter Details Date Type Department Care Team Description 09/03/2017 Office Visit Hematology/Oncology Kayleen Ghosh Acqu ired complete AV block; at [facility] [place] [facility] ENGINEERING DEPARTMENT CHAIR Malignant neoplasm of female breast, uns pecified estrogen receptor status, unspecified laterality, unspecified site of breast [address] [place], [place] [address] [place] [address] [phone] (Wo rk) Social History Tobacco Use Types [...] Sign Reading Time Taken Comments Blood Pressure 162/65 09/03/2017 1:50 PM EDT Pulse 87 09/03/2017 1:50 PM EDT Temperature 36.8 ??C (98.2 ??F) 09/03/2017 1:50 PM EDT Respiratory Rate 16 09/03/2017 1:50 PM EDT Oxygen Saturation 98% 09/03/2017 1:50 PM EDT Inhaled Oxygen Concentration - - Weight 86.2 kg (190 lb) 09/03/2017 1:50 PM EDT Height 147 cm (4' 9.87) 09/03/2017 1:50 PM EDT Body Mass Index 39.88 09/03/2017 1:50 PM EDT documented in this encounter Progress Notes Kayleen Ghosh, ENGINEERING DEPARTMENT CHAIR - 09/03/2017 1:45 PM EDT Subjective: Patient ID: Barbara Casarez is a 81 y.o. female. Problem List: 1. Cancer of the right breast, [id number], stage IA, low grade, ER/VT positive, Her-2/veronica negative. A. Screening mammogram 11/15/12 [...] cancer cells with immunostaining) Stain Intensity: Strong [place] immunoreactivity: Positive (>90% cancer cells with immunostaining) [...] Type: Invasive ductal carcinoma Tumor Grade: Low Uhmark-Qrtfb-Hykbatzpzx Score: 5 Tubular Differentiation: 2 Mitotic Rate: 1 Nuclear Grade: 2 Tumor Size: 0.7 cm (maximum diameter) In Situ Histologic Type: Not identified (present in the core bx [id number]) Microcalcifications: Not identified Angiolymphatic Invasion: Not identified [...] 4 doses on 11/02/14 3. ASCVD s/p MA with v fib arrest in 04/14 s/p [...] 42, IgG - 424, IgM - 23. [place] to be related to rituxan. Given lack [...] on 01/05/13. The pathology is noted above. Chemotherapy was not recommended. She completed a [...] 11/02/14. On presentation today, she is doing great. Still quite active. No new symptoms or issues. 4.5yrs outfrom completion of treatment for her breast CA. ITP has been stable. She has a URI at the moment anddoesn't feel great. Chills at home but hasn't taken her temp. Afebrile presently. Has had it about aweek and has not yet turned the corner. Review of Systems Constitutional: Positive for chills and fatigue. Negative for fever. HENT: Positive for congestion and sinus pressure. Negative for sinus pain and sore throat. Eyes: Negative. Respiratory: Positive for cough. Cardiovascular: Negative. Gastrointestinal: Negative. Genitourinary: Negative. Musculoskeletal: Positive for arthralgias. Skin: Negative. Neurological: Negative. Psychiatric/Behavioral: Negative. BP 162/65 (Patient Position: Sitting) Pulse 87 Temp 36.8 ??C (98.2 ??F) (Oral) Resp 16 Ht 147 cm (4' 9.87) Wt 86.2 kg (190 lb) SpO2 98% BMI 39.88 kg/m2 Wt Readings from Last 3 Encounters: 09/03/17 86.2 kg (190 lb) 04/16/17 83.5 kg (184 lb) 01/15/17 82.6 kg (182 lb) Objective: Physical Exam Constitutional: She is oriented to person, place, and time. She appears well- developed and well-nourished. No distress. HENT: Head: Normocephalic and atraumatic. Mouth/Throat: Oropharynx is clear and moist. No oropharyngeal exudate. Eyes: Conjunctivae are normal. Pupils are equal, round, and reactive to light. No scleral icterus. Neck: Neck supple. Cardiovascular: Normal rate and regular rhythm. Pulmonary/Chest: Effort normal. No respiratory distress. She has no wheezes. She has rales (few crackles in bases bilat L>R). Abdominal: There is no guarding. Genitourinary: Genitourinary Comments: [...] Her behavior is normal. Vitals reviewed. Labs: 09/02/17 CBC: WBC 6.2 HgB 15.1 Plts 112 Date Plts 09/02/17 119 04/14/17 149 01/14/17 188 10/01/16 179 04/16/16 [...] Bilateral mammogram on 11/10/16 was negative. She is doing well enough that Ithink we can move to 4mo visits. She is now 4yrs out and I will ask that Dr. Feliciano see her next week to have the discussion of whether or not to continue beyond 5yrs. She also has ITP. The platelet count [...] and will recheck it in three months. I have asked her to call us or PCP if she develops fevers or worsening cough as she has crackles. Wediscussed options and she has decided to do supportive care over the weekend and will call if needed. She is seeing front desk agent on Wednesday and will call us then if she feels she needs further care. This is likely viral and will hopefully pass. Kayleen Ghosh, MSN, PIPE CAULKER, AOCN Hematology/Oncology Nurse Practitioner [place], [place] [phone] documented in this encounter Plan of Treatment Upcoming Encounters Date Type Specialty Care Team Description 04/06/2022 Appointment Pulmonology 04/06/2022 Office Visit Pulmonology Matt Watson MD [facility] [address] [place], [place] [address] (Wo rk) documented as of this encounter Procedures Procedure Name Priority Date/Time Associated Diagnosis Comme nts LAB SCAN 09/02/2017 12:00 AM Results for this EDT procedure are i n the results section . documented in this encounter Results SCAN DOC: LAB (09/02/2017 12:00 AM EDT) Narrative 09/02/2017 12:00 AM EDT This result has an attachment that is no t available. Ordered by an unspecified provider. Scanning Provider MEDIA MGR SCAN EXT ORDR/RSLT documented in this encounter Visit Diagnoses Diagnosis Acquired complete AV block Atrioventricular block, complete Malignant neoplasm of female breast, uns pecified estrogen receptor status, unspecified laterality, unspecified site of breast documented in this encounter Care Teams Etymology Professor Relationship Specialty Start Date End Date Matt Mcdonnell, PCP - General 11/15/12 11/29/19 [address] [place] [address] documented as of this encounter
--- OUTSIDE RECORDS SUMMARY | 2022-04-03 12:32 | XMS_ITS | Encounter Summary ---
:1935 Author Organization [facility] [place] [address] Care Team Providers Name Role Phone Matt Mcdonnell Primary Care Provider Encounter Details Date Type Department Care Team Description 10/02/2016 Office Visit Hematology/Oncology Yao Feliciano Ma lignant neoplasm of right female breast, unspecified site of breast; at [facility] Chronic ITP (idiopathic thrombocytopenia ) [address] [place] [phone] ONCOLOGY [phone] [place], [place] [address] Social History Tobacco Use Types [...] Sign Reading Time Taken Comments Blood Pressure 158/73 10/02/2016 2:06 PM EDT Pulse 90 10/02/2016 2:06 PM EDT Temperature 36.4 ??C (97.5 ??F) 10/02/2016 2:06 PM EDT Respiratory Rate 16 10/02/2016 2:06 PM EDT Oxygen Saturation 100% 10/02/2016 2:06 PM EDT Inhaled Oxygen Concentration - - Weight 82.1 kg (181 lb) 10/02/2016 2:06 PM EDT Height 147 cm (4' 9.87) 10/02/2016 2:06 PM EDT Body Mass Index 37.99 10/02/2016 2:06 PM EDT documented in this encounter Progress Notes Yao Feliciano MD - 10/02/2016 2:00 PM EDT Subjective: Patient ID: Barbara Casarez is a 80 y.o. female. Problem List: 1. Cancer of the right breast, [id number], stage IA, low grade, ER/AR positive, Her-2/veronica [...] Type: Invasive ductal carcinoma Tumor Grade: Low Myblwz-Voyeh-Zfpkymdgyo Score: 5 Tubular Differentiation: 2 Mitotic Rate: 1 Nuclear Grade: 2 Tumor Size: 0.7 cm (maximum diameter) In Situ Histologic Type: Not identified (present in the core bx [id number]) Microcalcifications: Not identified Angiolymphatic Invasion: Not identified [...] 4 doses on 11/02/14 3. ASCVD s/p [place] with v fib arrest in 04/14 s/p [...] 42, IgG - 424, IgM - 23. [place] to be related to rituxan. Given lack of frequent infections, no intervention recommended. 9. 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 Left hip fracture 07/2016, s/p ORIF after she fell on the stairs 11. S/p JIN/BSO HPI Ms. Wiggett returns in f/u of breast cancer and [...] 11/02/14. On presentation today, she is doing fair. She has had a difficult past several months. In 06/16 she required pacemaker placement for complete heart block. She suffered a hip fracture in 07/17 after she fell on the stairs and underwent left hip ORIF. She has some discomfort in the left hip area which is intermittent. No other areas of pain. She is ambulatory with a cane. She is eating well and her weight is about the same. Review of Systems Constitutional: Negative. HENT: Negative. [...] is normal. Vitals reviewed. Labs: WBC/ANC - 9.08/6599, Hgb/Hct - 13.2/42.5, Plts -179,000. BUN/Cr - 23/0.76. Lytes and LFTs unremarkable Date Plts 10/01/16 179 04/16/16 124 02/20/16 97 11/21/15 [...] a high fracture risk. Given this, we were planning to start reclast. However, due to intercurrent medical problems, she was not able to come to that appt and this was not done. In the meantime, she has suffered a fracture of her left hip related to a fall. Although this was related to trauma, we talked today about the bone density and options. We are going to start reclast today. We talked about changing the hormonal therapy to tamoxifen. Given the increased risk of thromboembolic disease, she would rather stay on the femara which is what we will do for now. She is scheduled for a bilateral mammogram on 11/10. I will arrange to see her in 3 months. She also has ITP. The platelet count [...] and will recheck it in three months. documented in this encounter Plan of Treatment Upcoming Encounters Date Type Specialty Care Team Description 04/06/2022 Appointment Pulmonology 04/06/2022 Office Visit Pulmonology Matt Watson MD [facility] ER PUL[facility]ARY T[facility]NER Patel [facility] [place] [place] [address] (Wo rk) documented as of this encounter Procedures Procedure Name Priority Date/Time Associated Diagnosis Comme nts LAB SCAN 10/01/2016 12:00 AM Results for this EDT procedure are i n the results section . documented in this encounter Results SCAN DOC: LAB (10/01/2016 12:00 AM EDT) Narrative 10/01/2016 12:00 AM EDT This result has an attachment that is no t available. Ordered by an unspecified provider. 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
--- OUTSIDE RECORDS SUMMARY | 2022-04-03 12:32 | XMS_ITS | Encounter Summary ---
:1935 Author Organization [facility] [place] [address] Care Team Providers Name Role Phone Matt Mcdonnell DO Primary Care Provider Reason for Visit Reason Onset Date Comments Labs Only 09/13/2015 Lab Tracking Encounter Details Date Type Department Care Team Description 09/13/2015 Telephone Hematology/Oncology at Marilia Jay L abs Only (Lab [facility] RN Tracking) [address] [place] [phone] Social History Tobacco Use Types Packs/Day [...] Telephone Encounter - Marilia Jay RN - 09/13/2015 9:57 AM EDT Labs drawn at [facility] on 09/12/2015 Platelet count [address] Feliciano. Patient to have labs drawn in 4 weeks. Notified patient of Platelet count and instructions for labs in 4 weeks 05/14/16 documented in this encounter Plan of Treatment Upcoming Encounters Date Type Specialty Care Team Description 04/06/2022 Appointment Pulmonology 04/06/2022 Office Visit Pulmonology Matt Watson MD [facility] [place] [address] (Wo rk) documented as of this encounter Visit Diagnoses Not on filedocumented in this encounter Care Teams Mixer Tender Relationship Specialty Start Date End Date Matt Mcdonnell, PCP - General 11/15/12 11/29/19 [address] [place] [address] documented as of this encounter
--- OUTSIDE RECORDS SUMMARY | 2022-04-03 12:32 | XMS_ITS | Encounter Summary ---
:1935 Author Organization [facility] [place] [address] Care Team Providers Name Role Phone Matt Mcdonnell DO Primary Care Provider Reason for Visit Reason Onset Date Comments Labs Only 02/24/2016 lab tracking Encounter Details Date Type Department Care Team Description 02/24/2016 Telephone Hematology/Oncology at Aleah Figueroa RN Labs Only (lab tracking) [address] [phone] Social History Tobacco Use Types Packs/Day [...] Telephone Encounter - Aleah Figueroa RN - 02/24/2016 11:11 AM EDT Pt called to let us know she had labs this past week. Platelets were [address] Feliciano know through this note. Pt due to see him in Mar, 2016 with cbc and dexa prior. Pt agrees with plan. documented in this encounter Plan of Treatment Upcoming Encounters Date Type Specialty Care Team Description 04/06/2022 Appointment Pulmonology 04/06/2022 Office Visit Pulmonology Matt Watson MD [facility] ER PULMONARY TURNER Patel [place], [place] [address] (Wo rk) documented as of this encounter Visit Diagnoses Not on filedocumented in this encounter Care Teams Hides And Skins Colorer Relationship Specialty Start Date End Date Matt Mcdonnell DO PCP - General 11/15/12 11/29/19 [address] [place] [address] documented as of this encounter
--- OUTSIDE RECORDS SUMMARY | 2022-04-03 12:32 | XMS_ITS | Encounter Summary ---
:1935 Author Organization [facility] [place] [address] Care Team Providers Name Role Phone Matt Mcdonnell Primary Care Provider Encounter Details Date Type Department Care Team Description 10/31/2015 Office Visit Dermatology at Emmanuel Jefferson, Actinic keratosis Aurelia BOOTH [address] [facility] [address] [facility] DERMATOLOGY [place], [place] [phone] Social History Tobacco Use Types Packs/Day Years [...] documented as of this encounter Progress Notes Emmanuel Jefferson MD - 10/31/2015 3:25 PM EDT Problem: New lesion of concern. Barbara follows up after last seeing me in February 2002, at which time I was treating her for alopecia areata. 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 She just returned from a trip to [place] outside of [place] where she was visiting family. She has noticed some rough lesions on her right cheek. Physical examination reveals a pleasant now 79-year-old woman who has numerous solar lentigos present over the sun exposed face, hands, and forearms. She has several actinic keratoses present over the right malar prominence. There is no evidence of any malignant lesions on the sun exposed skin examination of her face, upper chest, hands, arms, or back. Assessment and Plan: Actinic keratoses. a. Patient has a number of graduations to attend coming up next week. Therefore, we will not treat with LN2 today. b. Rather, patient will schedule for another couple weeks down the road and will return for treatment at that time. The patient reassured about the premalignant nature of these lesions. COPY: Matt Mcdonnell D.O. documented in this encounter Plan of Treatment Upcoming Encounters Date Type Specialty Care Team Description 04/06/2022 Appointment Pulmonology 04/06/2022 Office Visit Pulmonology Matt Watson MD [facility] PULMONARY TURNER Patel [place], [place] [address] (Wo rk) documented as of this encounter Visit Diagnoses Diagnosis Actinic keratosis documented in this encounter Care Teams Financial Operations Clerk Relationship Specialty Start Date End Date Matt Mcdonnell DO PCP - General 11/15/12 11/29/[address] [place] [id number] documented as of this encounter
--- OUTSIDE RECORDS SUMMARY | 2022-04-03 12:32 | XMS_ITS | Encounter Summary ---
:1935 Author Organization [place] [address] Care Team Providers Name Role Phone RoMatt dejesus Martha KHAN Primary Care Provider Reason for Visit Reason Onset Date Comments Labs Only 05/23/2015 Encounter Details Date Type Department Care Team Description 05/23/2015 Telephone Hematology/Oncology at Jocelyn Benjamin I, Labs Only Wilson RN [address] [place] [phone] Social History Tobacco Use Types Packs/Day [...] this encounter Miscellaneous Notes Telephone Encounter - Zoë Benjamin I RN - 05/23/2015 1:35 PM EST Placed call to [facility] lab. Patient has not had labs drawn. Spoke with patient who reports that she plans to have lab drawn on Jun 07 documented in this encounter Plan of Treatment Upcoming Encounters Date Type Specialty Care Team Description 04/06/2022 Appointment Pulmonology 04/06/2022 Office Visit Pulmonology aMtt Watson MD [facility] ER PULMONARY TURNER Patel [place], [place] [address] (Wo rk) documented as of this encounter Visit Diagnoses Not on filedocumented in this encounter Care Teams Solderer Dipper Relationship Specialty Start Date End Date Matt Mcdonnell DO PCP - General 11/15/12 11/29/19 [address] [place] [address] documented as of this encounter
--- OUTSIDE RECORDS SUMMARY | 2022-04-03 12:32 | XMS_ITS | Encounter Summary ---
:1935 Author Organization [facility] [place] [address] Care Team Providers Name Role Phone Matt Mcdonnell Martha KHAN Primary Care Provider Encounter Details Date Type Department Care Team Description 07/19/2015 Office Visit Hematology/Oncology Kayleen Ghosh, ITP (idiopathic thrombocytopenic purpura); at [facility] OIL DISTRIBUTOR TENDER Malignant neoplasm of female breast, uns pecified laterality, unspecified site of breast [address], [place] [address] [place] [address] [phone] Social History Tobacco Use Types Packs/Day Years [...] Sign Reading Time Taken Comments Blood Pressure 169/67 07/19/2015 2:19 PM EST Pulse 67 07/19/2015 2:19 PM EST Temperature - - Respiratory Rate 20 07/19/2015 2:19 PM EST Oxygen Saturation 99% 07/19/2015 2:19 PM EST Inhaled Oxygen Concentration - - Weight 83.5 kg (184 lb) 07/19/2015 2:19 PM EST Height - - Body Mass Index 38.46 04/23/2015 4:45 PM EST documented in this encounter Progress Notes Kayleen Ghosh, OIL DISTRIBUTOR TENDER - 07/19/2015 2:35 PM EST Subjective: Patient ID: Barbara Casarez is a 79 y.o. female. Problem List: 1. Cancer of the right breast, [id number], stage IA, low grade, ER/MI positive, Her-2/veronica negative. A. Screening mammogram 11/15/12 [...] cancer cells with immunostaining) Stain Intensity: Strong [place] immunoreactivity: Positive (>90% cancer cells with immunostaining) [...] Type: Invasive ductal carcinoma Tumor Grade: Low Adwjve-Qjvne-Jphilypwfh Score: 5 Tubular Differentiation: 2 Mitotic Rate: 1 Nuclear Grade: 2 Tumor Size: 0.7 cm (maximum diameter) In Situ Histologic Type: Not identified (present in the core bx [id number]) Microcalcifications: Not identified Angiolymphatic Invasion: Not identified [...] Rituxan, completed 4 doses on 11/02/14 3. HTN 4. S/p left knee arthroscopy 12/10 for partially torn meniscus 5. Dexa scan 03/12 - osteopenia of L-spine and proximal femurs. 04/14 - osteoporosis 6. [place] in 04/2015- completed cardiac rehab HPI Ms. Casarez returns in f/u of breast cancer. This was found by routine screening mammogram. Details of the evaluation are noted above. She underwent a partial mastectomy on 01/05/13. The pathology isnoted above. We met and discussed adjuvant systemic [...] presentation today, she is feeling well. She is currently grieving the loss of a dear friend who a few weeks ago. With respect to her health, she has not had any problems since her [place] in April other than continued problems with bilateral carpal tunnel. BP 169/67 mmHg Pulse 67 Resp 20 Wt 83.462 kg (184 lb) SpO2 99% Wt Readings from Last 3 Encounters: 07/19/15 83.462 kg (184 lb) 04/26/15 84.5 kg (186 lb 4.6 oz) 04/12/15 85.73 kg (189 lb) Review of Systems Constitutional: Negative. HENT: Negative. Eyes: Negative. Respiratory: Negative. Cardiovascular: Negative. Gastrointestinal: Negative. Genitourinary: Negative. Musculoskeletal: Positive for arthralgias. Skin: Negative. Neurological: Positive for numbness (numness and pain in wrists from bilat carpal tunnel- being followed and treated for this actively). Psychiatric/Behavioral: Negative. Objective: Physical Exam Constitutional: She is oriented to person, place, and time. She appears well- developed and well-nourished. No distress. HENT: Head: Normocephalic and atraumatic. Mouth/Throat: Oropharynx is clear and moist. No oropharyngeal exudate. Eyes: No scleral icterus. Cardiovascular: An irregularly irregular rhythm present. Pulmonary/Chest: Effort normal. No respiratory distress. She [...] Her behavior is normal. Vitals reviewed. Labs: 07/18/15 CBC: WBC 8.4 HgB 14.6 Plts 134 Date Plts 07/18/15 134 03/28/15 98k 03/01/15 92k 01/31/15 100k 01/03/14 [...] well and we will plan to continue. The f/u mammogram showed an indeterminate area in the left breast and further imaging was recommended. This was done on 12/03/14 and thankfully showed no evidence of malignancy. The dexa scan shows a decrease in [...] 11/02/14. The platelet count has increased overall and has been stable. We will continueto monitor. We will check the platelets every 4 weeks and see her in about 3 months. She will be following up with her leadership intern next month, and cardiac rehab on Wednesday. Rhythm was nl when checked by Dr. Feliciano. She understands to pursue any chest pain or palpitations in the meantime. Kayleen Ghosh, MSN, BLISTER PACK OPERATOR, AOCN Hematology/Oncology Nurse Practitioner [place], [place] [phone] documented in this encounter Plan of Treatment Upcoming Encounters Date Type Specialty Care Team Description 04/06/2022 Appointment Pulmonology 04/06/2022 Office Visit Pulmonology Matt Watson MD [facility] [address] [place], [place] [address] (Wo rk) documented as of this encounter Visit Diagnoses Diagnosis ITP (idiopathic thrombocytopenic purpura ) Immune thrombocytopenic purpura Malignant neoplasm of female breast, uns pecified laterality, unspecified site of breast documented in this encounter Care Teams Gleason Gear Generator Relationship Specialty Start Date End Date Matt Mcdonnell DO PCP - General 11/15/12 11/29/19 [address] [place], [place] [id number] documented as of this encounter
--- OUTSIDE RECORDS SUMMARY | 2022-04-03 12:32 | XMS_ITS | Encounter Summary ---
:1935 Author Organization [facility] [place] [address] Care Team Providers Name Role Phone Matt Mcdonnell DO Primary Care Provider Encounter Details Date Type Department Care Team Description 08/16/2015 Telephone Hematology Oncology at Parvin Marques RN [place] [phone] Social History Tobacco Use Types Packs/Day [...] this encounter Miscellaneous Notes Telephone Encounter - Parvin Marques RN - 08/16/2015 10:52 AM EDT Labs drawn at 08/16/2015 Platelet count [address] Feliciano. Patient to have labs drawn in 4 weeks. Notified patient of Platelet count and instructions for labs in 4 weeks 09/13/15. documented in this encounter Plan of Treatment Upcoming Encounters Date Type Specialty Care Team Description 04/06/2022 Appointment Pulmonology 04/06/2022 Office Visit Pulmonology Matt Watson MD [facility] ER DR ANEESH Patel [place], [place] [address] (Wo rk) documented as of this encounter Visit Diagnoses Not on filedocumented in this encounter Care Teams Captain Cannery Tender Relationship Specialty Start Date End Date Matt Mcdonnell DO PCP - General 11/15/12 11/29/[address] [place] [id number] documented as of this encounter
--- OUTSIDE RECORDS SUMMARY | 2022-04-03 12:32 | XMS_ITS | Encounter Summary ---
:1935 Author Organization [facility] Address [address] [place] [address] Care Team Providers Name Role Phone Matt Mcdonnell Martha KHAN Primary Care Provider Encounter Details Date Type Department Care Team Description 04/16/2017 Office Visit Hematology/Oncology Kayleen Ghosh Mali gnant neoplasm of female breast, unspecified estrogen receptor status, unspecified laterality, unspecified site of breast; at [facility] DONOR RECRUITMENT MANAGER Idiopathic thrombocytopenic purpura [address] [place], [place] [address] [place] [address] [phone] Social History Tobacco Use Types Packs/Day Years [...] Sign Reading Time Taken Comments Blood Pressure 157/64 04/16/2017 3:10 PM EST Pulse 88 04/16/2017 3:10 PM EST Temperature 36.4 ??C (97.5 ??F) 04/16/2017 3:10 PM EST Respiratory Rate 16 04/16/2017 3:10 PM EST Oxygen Saturation 99% 04/16/2017 3:10 PM EST Inhaled Oxygen Concentration - - Weight 83.5 kg (184 lb) 04/16/2017 3:10 PM EST Height 147 cm (4' 9.87) 04/16/2017 3:10 PM EST Body Mass Index 38.62 04/16/2017 3:10 PM EST documented in this encounter Progress Notes Kayleen Ghosh, DONOR RECRUITMENT MANAGER - 04/16/2017 3:15 PM EST Subjective: Patient ID: Barbara Casarez is a 81 y.o. female. Problem List: 1. Cancer of the right breast, [id number], stage IA, low grade, ER/NJ positive, Her-2/veronica negative. A. Screening mammogram 11/15/12 [...] cancer cells with immunostaining) Stain Intensity: Strong [place] immunoreactivity: Positive (>90% cancer cells with immunostaining) [...] Type: Invasive ductal carcinoma Tumor Grade: Low Wfmvqe-Wabac-Aykvanlsbl Score: 5 Tubular Differentiation: 2 Mitotic Rate: 1 Nuclear Grade: 2 Tumor Size: 0.7 cm (maximum diameter) In Situ Histologic Type: Not identified (present in the core bx [id number]) Microcalcifications: Not identified Angiolymphatic Invasion: Not identified [...] 4 doses on 11/02/14 3. ASCVD s/p [place] with v fib arrest in 04/14 s/p [...] 42, IgG - 424, IgM - 23. [place] to be related to rituxan. Given lack [...] quite active. No new symptoms or issues. Review of Systems Constitutional: Negative. HENT: Negative. Eyes: Negative. Respiratory: Negative. Cardiovascular: Negative. Gastrointestinal: Negative. Genitourinary: Negative. Musculoskeletal: Positive for arthralgias. Skin: Negative. Neurological: Negative. Psychiatric/Behavioral: Negative. BP 157/64 Pulse 88 Temp 36.4 ??C (97.5 ??F) (Oral) Resp 16 Ht (!) 147 cm (4' 9.87) Wt 83.5 kg (184 lb) SpO2 99% BMI 38.62 kg/m2 Wt Readings from Last 3 Encounters: 04/16/17 83.5 kg (184 lb) 01/15/17 82.6 kg (182 lb) 10/02/16 82.1 kg (181 lb) Objective: Physical Exam Constitutional: She is [...] Her behavior is normal. Vitals reviewed. Labs: 04/14/17 CBC: CBC 8.2 hemoglobin 13.9 platelets 149 Date Plts 04/14/17 149 01/14/17 188 10/01/16 179 04/16/16 [...] it in three months. Kayleen Ghosh, MSN, INTER[employer]ATIONAL MARKETING EXECUTIVE, AOCN Hematology/Oncology Nurse Practitioner [place], [place] [phone] documented in this encounter Plan of Treatment Upcoming Encounters Date Type Specialty Care Team Description 04/06/2022 Appointment Pulmonology 04/06/2022 Office Visit Pulmonology Matt Watson MD [facility] [address] [place], [place] [address] (Wo rk) documented as of this encounter Visit Diagnoses Diagnosis Malignant neoplasm of female breast, uns pecified estrogen receptor status, unspecified laterality, unspecified site of breast Idiopathic thrombocytopenic purpura Immune thrombocytopenic purpura documented in this encounter Care Teams Preschool Paraprofessional Relationship Specialty Start Date End Date Matt Mcdonnell DO PCP - General 11/15/12 11/29/[address] [place] [id number] documented as of this encounter
--- OUTSIDE RECORDS SUMMARY | 2022-04-03 12:32 | XMS_ITS | Encounter Summary ---
:1935 Author Organization [facility] [address] Care Team Providers Name Role Phone Matt Mcdonnell DO Primary Care Provider Encounter Details Date Type Department Care Team Description 05/10/2015 Telephone Hematology Oncology at Parvin Marques RN [place] [phone] Social History Tobacco Use Types Packs/Day [...] Telephone Encounter - Parvin Marques RN - 05/10/2015 1:24 PM EST Called Barbara per Dr. Feliciano's request. Let he know her platelets went up to 130k. She was very please with this, and knows to have labs draws again in 3-4 weeks. documented in this encounter Plan of Treatment Upcoming Encounters Date Type Specialty Care Team Description 04/06/2022 Appointment Pulmonology 04/06/2022 Office Visit Pulmonology Matt Watson MD [facility] Pat[place], [place] [address] (Wo rk) documented as of this encounter Visit Diagnoses Not on filedocumented in this encounter Care Teams Ortho Assistant Relationship Specialty Start Date End Date Matt Mcdonnell, PCP - General 11/15/12 11/29/[address] [place] [id number] documented as of this encounter
--- OUTSIDE RECORDS SUMMARY | 2022-04-03 12:32 | XMS_ITS | Encounter Summary ---
:1935 Author Organization [facility] [place] [address] Care Team Providers Name Role Phone RoMatt dejesus Martha KHAN Primary Care Provider Reason for Visit Auth/Cert Specialty Diagnoses / Procedures Referred By Contact Refer red To Contact Diagnoses Acquired complete AV block CHB Procedures ELECTROPHYSIOLOGY PROCEDURE Referral ID Status Reason Start Date Expiration Date Visits Requ ested Visits Authorized [id number] 1 1 Encounter Details Date Type Department Care Team Description 06/04/2016 Surgery Electrophysiology Lab at [facility], ELECTROPHYSIOLOGY [facility] PROCEDURE [facility] [place] [address] Center [phone] [place] [address] Social History Tobacco Use Types Packs/Day Years [...] Sign Reading Time Taken Comments Blood Pressure 177/72 06/04/2016 3:00 PM EST Pulse 71 06/04/2016 3:00 PM EST Temperature 36.5 ??C (97.7 ??F) 06/04/2016 11:07 AM EST Respiratory Rate 16 06/04/2016 11:07 AM EST Oxygen Saturation 100% 06/04/2016 3:00 PM EST Inhaled Oxygen Concentration - - Weight 83.5 kg (184 lb) 06/04/2016 11:07 AM EST Height 149.9 cm (4' 11) 06/04/2016 11:07 AM EST Body Mass Index 36.64 06/04/2016 11:07 AM EST documented in this encounter Discharge Summaries [facility] MD - 06/05/2016 10:40 AM EST Cardiac Electrophysiology Discharge Summary Patient Name: Barbara Casarez Patient Age: 80 y.o. Language: Cambodian Race: White Ethnicity: Not nor Admit date: 06/04/2016 Discharge date and time: 06/05/2016 Attending Physician: [facility] MD Discharge Physician: [facility] MD Follow-up Recommendations for Providers: - 10 day wound check in device clinic at [facility] - 3 month follow up for pacemaker in Dr. Coyne's office, per patient request Inpatient Provider Contact Information: Cardiac Electrophysiology - Discharge Diagnoses (Hospital Problems) and Secondary Diagnoses (Chronic Problems): Active Hospital Problems Diagnosis ??? Acquired complete AV block Resolved Hospital Problems Diagnosis Date Resolved No resolved problems to display. Active Non-Hospital Problems Diagnosis ??? Actinic keratosis ??? ST elevation (STEMI) myocardial infarction involving left anterior descending coronary artery ??? Acute systolic congestive heart failure ??? PAF (paroxysmal atrial fibrillation) ??? ITP (idiopathic thrombocytopenic purpura) ??? Breast cancer Operations/Major Procedures: Generator: Medtronic Advisa [id number] ([id number]) - Left implant 06/04/16 RA Lead: Medtronic 5076-45 ([id number]) (06/04/16) RV Lead: Medtronic 5076-52 ([id number]) (06/04/16) History of Presentation: 80 y.o. female with a history of coronary artery disease s/p MD, paroxysmal atrial fibrillation, hypertension, and right breast cancer s/p partial mastectomy, who was admitted for elective pacemaker implant on 06/04/16 for complete heart block. Hospital Course: She underwent the procedure without complications. The device was functioning appropriately the following morning. Post-implant CXR was negative for pneumothorax. Her beta omar was resumed. Vital Signs at Discharge: BP: 169/51, Heart Rate: 74, Temp: 36.5 ??C (97.7 ??F), Resp: 18, BMI (Calculated): 37.2 Height: (!) 149.9 cm (4' 11) (06/04/16 1107) Weight - Scale: 82.3 kg (181 lb 6.4 oz) (06/05/16 0414) Functional and Cognitive Status: Stable Admission Diagnoses: Acquired complete AV block [I44.2] Discharge Diagnoses: Acquired complete AV block [I44.2] Pacemaker implant Admission Condition: fair Indication for Admission: Medical necessity/monitoring post-procedure Consults: none Important Studies and Lab Data: Lab Results Component Value Date WBC 10.5 (H) 06/04/2016 HGB 13.7 06/04/2016 HCT 43.8 06/04/2016 PLATELET 141 (L) 06/04/2016 Recent Labs 06/04/16 1200 INR 1.0 Lab Results Component Value Date NA 146 (H) 06/04/2016 K 3.8 06/04/2016 CL 105 06/04/2016 BUN 19 (H) 06/04/2016 CREATININE 0.89 06/04/2016 MAGNESIUM 0.79 04/25/2015 Treatments: Pacemaker implant Discharge Exam: Please see physical exam in day of discharge progress note. No changes. Discharge Conditions/Prognosis: good Discharge to: home Updated Allergies/ADRs: Allergies Allergen Reactions ??? Celebrex [Celecoxib] Other (See Comments) Hypotension, tachycardia per patient ??? Norvasc [Amlodipine] Other (See Comments) Causes edema to lower extremities Immunizations Given this Hospitalization: There is no immunization history on file for this patient. Discharge Medications: Your Medications Notice Some of the medications listed here do not show instructions, such as how often to take the medication. Ask your doctor or nurse how to use these medications. Specifically ask about these and similar medications: - CALCIUM CARBONATE/VITAMIN D3 (CALCIUM 600 WITH VITAMIN D3 ORAL) - multivitamin (THERAGRAN) tablet New Medications Dose Details meTOPROLOL succinate 50 mg Tablet sr Commonly known as: TOPROL-XL Take 1 tablet by mouth daily. 50 mg Quantity: 30 tablet Refills: 12 Continued medications, unchanged Dose Details acetaminophen 500 mg Tab Commonly known as: TYLENOL Take 1,000 mg by mouth every 6 hours as needed for Pain. 1000 mg Refills: 0 aspirin 81 mg Chew Take 81 mg by mouth daily. 81 mg Quantity: 30 tablet Refills: 3 atorvastatin 80 mg Tab Commonly known as: LIPITOR Take 1 tablet by mouth every evening. 80 mg Quantity: 30 tablet Refills: 3 CALCIUM 600 WITH VITAMIN D3 ORAL ?nk?wn!?? Refills: 0 hydroCHLOROthiazide 25 mg Tab Commonly known as: HYDRODIURIL Take 25 mg by mouth daily. 25 mg Refills: 0 letrozole 2.5 mg Tab Commonly known as: FEMARA Take 1 tablet by mouth daily. 2.5 mg Quantity: 90 tablet Refills: 3 lisinopril 20 mg Tab Commonly known as: PRINIVIL;ZESTRIL Take 20 mg by mouth 2 times daily. 20 mg Refills: 0 multivitamin Tab Commonly known as: THERAGRAN ?nk?wn!?? Refills: 0 nitroGLYcerin 0.4 mg Subl Commonly known as: NITROSTAT Place 1 tablet under the tongue every 5 minutes as needed for Chest pain. 0.4 mg Quantity: 90 tablet Refills: 12 STOPPED Medications chlorhexidine 4 % Liqd Commonly known as: HIBICLENS Smoking Status at Discharge: History Smoking Status ??? Never Smoker Smokeless Tobacco ??? Not on file Instructions Given to Patient at Discharge: Patient Instructions FINAL PACEMAKER RECOMMENDATIONS: 1. Standard post implant discharge instructions (see below): 2. Medications as listed above. Changes: Restart metoprolol succinate (Toprol XL) 50 mg daily 3. Follow up in 10 days in pacemaker clinic at [facility], for wound check and Carelink monitor 4. Follow up in pacemaker clinic at Dr. Coyne's office in 3 months to establish care CALL IMMEDIATELY: If you develop chest pain, shortness of breath, bleeding, discharge from the incision, opening of the incision and/or fever/temperature >100 degrees F. The office phone number is [phone]. WOUND CARE FOR YOUR INCISION: Your wound will usually heal in 7-10 days. Your wound may be tender, it may appear slightly red and bumpy and there may be dry, crusty scabbing. These are all normal. How to Care for your Incision: - Either you or someone with you needs to look at the wound every day. - You may use ice packs over the incision. Make sure to use a production cloth cutter (such as a towel) in between the ice pack and the bare skin - Report any signs of infection immediately: ?? Drainage ?? Swelling ?? Warmth ?? Increased pain ?? Fevers/chills - Call if you are concerned about infection or the edges of the wound separate - A needle should not be put into the wound area because this can damage the device. ?? You may need to remind your healthcare provider of this concern - You may use ice packs over the incision. Make sure to use a production cloth cutter (such as a towel) in between the ice pack and the bare skin - There are sutures inside the incision that will dissolve on their own - Do not scratch or rub the wound - Do not apply creams, lotions, or ointments to the incision until is completely healed. - You may cover the wound with gauze if it rubs on clothing and causes discomfort - Protect your wound from injury until the skin has had sufficient time to heal - Do not shower for 48 hours after implant - After 48 hours, you may wash the wound gently with soap and water - Do not submerge the incision (in bath or swimming), for 2 weeks after th procedure - While in the shower, turn your back to the water nozzle so you avoid direct water pressure on the wound. Continue this for 7-10 days. Your incision has been closed with: Dermabond - This is a sterile, liquid skin adhesive that holds wound edges together. The film will usually remain in place for 5 to 10 days, then naturally sloughs (fall) off your skin. - Do not scratch, rub, or pick at the Dermabond adhesive film. This may loosen the film before your wound is healed. - Protect the wound from prolonged exposure to sunlight or tanning lamps while the film is in place ARM MOVEMENT RESTRICTIONS POST-IMPLANT - Do not raise your elbow on the operated side above the shoulder for 6 weeks - Do not lift greater than 7 pounds (equal to a gallon of milk) on the operated side for 6 weeks. - You may use your arm on the operated side, but do not make extreme movement (such as stretching orreaching for a heavy object) for 6 weeks If you have any questions or concerns about this product, please call the office at [phone]. General Instructions None Future Appointments and Orders Future Appointments Provider Department Dept Phone 06/15/2016 10:00 AM Elizabeth Gilman RN Cardiology [phone] 07/17/2016 1:00 PM Yao Feliciano MD Hematology/Oncology [phone] 07/17/2016 1:30 PM [facility], ROOM Hematology/Oncology at [facility] [phone] 09/04/2016 11:00 AM Sarah Novoa RN Cardiology [phone] Discharge References/Attachments None documented in this encounter Discharge Instructions Patient InstructionsShira Glover, RIGGING UP MAN - 06/04/2016 3:36 PM EST FINAL PACEMAKER RECOMMENDATIONS: 1. Standard post implant discharge instructions (see below): 2. Medications as listed above. Changes: Restart metoprolol succinate (Toprol XL) 50 mg daily 3. Follow up in 10 days in pacemaker clinic at [facility], for wound check and Carelink monitor 4. Follow up in pacemaker clinic at Dr. Coyne's office in 3 months to establish care CALL IMMEDIATELY: If you develop chest pain, shortness of breath, bleeding, discharge from the incision, opening of the incision and/or fever/temperature >100 degrees F. The office phone number is [phone]. WOUND CARE FOR YOUR INCISION: Your wound will usually heal in 7-10 days. Your wound may be tender, it may appear slightly red and bumpy and there may be dry, crusty scabbing. These are all normal. How to Care for your Incision: - Either you or someone with you needs to look at the wound every day. - You may use ice packs over the incision. Make sure to use a production cloth cutter (such as a towel) in between the ice pack and the bare skin - Report any signs of infection immediately: ?? Drainage ?? Swelling ?? Warmth ?? Increased pain ?? Fevers/chills - Call if you are concerned about infection or the edges of the wound separate - A needle should not be put into the wound area because this can damage the device. ?? You may need to remind your healthcare provider of this concern - You may use ice packs over the incision. Make sure to use a production cloth cutter (such as a towel) in between the ice pack and the bare skin - There are sutures inside the incision that will dissolve on their own - Do not scratch or rub the wound - Do not apply creams, lotions, or ointments to the incision until is completely healed. - You may cover the wound with gauze if it rubs on clothing and causes discomfort - Protect your wound from injury until the skin has had sufficient time to heal - Do not shower for 48 hours after implant - After 48 hours, you may wash the wound gently with soap and water - Do not submerge the incision (in bath or swimming), for 2 weeks after th procedure - While in the shower, turn your back to the water nozzle so you avoid direct water pressure on the wound. Continue this for 7-10 days. Your incision has been closed with: Dermabond - This is a sterile, liquid skin adhesive that holds wound edges together. The film will usually remain in place for 5 to 10 days, then naturally sloughs (fall) off your skin. - Do not scratch, rub, or pick at the Dermabond adhesive film. This may loosen the film before your wound is healed. - Protect the wound from prolonged exposure to sunlight or tanning lamps while the film is in place ARM MOVEMENT RESTRICTIONS POST-IMPLANT - Do not raise your elbow on the operated side above the shoulder for 6 weeks - Do not lift greater than 7 pounds (equal to a gallon of milk) on the operated side for 6 weeks. - You may use your arm on the operated side, but do not make extreme movement (such as stretching orreaching for a heavy object) for 6 weeks If you have any questions or concerns about this product, please call the office at [phone]. documented in this encounter Medications at Time [...] Take 1 tablet by 90 tablet 3 03/3104/16/2017 TabletIndications: Malignant mouth daily. neoplasm of right female breast, unspecified site of breast aspirin 81 mg Tablet, Take 81 mg by 30 tablet 3 04/26/2015 04/15/2018 Chewable mouth daily. documented as of this encounter Progress Notes Shira Glover APRN - 06/05/2016 7:22 AM EST Cardiac Electrophysiology Post-Implant Device Interrogation Barbara Casarez [id number] 06/05/2016 History: Barbara Casarez is a 80 y.o. female with a history of coronary artery disease s/p MD, paroxysmal atrial fibrillation, hypertension, and right breast cancer s/p partial mastectomy who is POD#1 ofMedtronic dual-chamber pacemaker implant for complete heart block. Physical Exam: Vitals: 06/05/16 0414 06/05/16 0425 06/05/16 0609 06/05/16 0656 BP: 182/69 169/51 BP Location (NBP): Left arm Right arm Right arm Right arm Pulse: 74 74 Resp: 18 18 Temp: 36.8 ??C (98.2 ??F) 36.5 ??C (97.7 ??F) TempSrc: Oral Oral SpO2: 95% 95% Weight: 82.3 kg (181 lb 6.4 oz) Height: General- No acute distress, sitting comfortably in bed. Skin- Pocket incision is CDI. Edges are approximated without drainage. Surgical glue is intact. Cardiovascular- S1/S2 regular rate and rhythm. No murmur. Lungs- Clear to auscultation bilaterally Neuro- A&Ox3 Device Interrogation: Data Generator: CumuLogic A2DR01 ([id number]) - Left implant 06/04/16 RA Lead: Medtronic 5076-45 ([id number]) (06/04/16) RV Lead: Medtronic 5076-52 ([id number]) (06/04/16) Diagnostics Pacing Mode: DDDR 60-120 Presenting EGMs: -STREET SUPERVISOR Underlying Rhythm: sinus rhythm 67bpm w/ CHB (VP30) Atrial Episodes: none Ventricular Episodes: none Atrial Pacin.6% Ventricular Pacin.7% Battery and Leads Voltage: 3.06V Status: [facility] Magnet Rate: 85bpm Charge Time: -sec Impedances (ohms) Sensing (mV) Thresholds HV RA RV LV RA RV LV RA RV LV - 361 513 - 2.6 VP30 - 0.5V @ 0.4ms 0.5V @ 0.4ms - POD#1 CXR: Interval placement of a MRI compatible dual-lead pacemaker device in the left chest wall with dual leads projecting over the expected locations of the left atrium and left ventricle. The 2 leads are indeterminate with respect to MRI compatibility. No pneumothorax or pleural effusion. The lungs are clear. The cardiomediastinal silhouette, alisha, pulmonary vascular markings are within normal limits. Impression: 80 y.o. female who is s/p Medtronic pacemaker implant for complete heart block. - Appropriate device function post-implant - CXR negative for post-implant complications - No programming changes made Plan: 1. Reviewed standard post-implant discharge instructions (see patient instructions) including arm restrictions, wound care, bathing, and driving 2. Restart metoprolol succinate 50mg twice daily (previously tolerated home dose). 3. Follow up in device clinic for wound/device check in ~10 days SHIRA GLOVER APRN 06/05/2016 Pager: [phone] Lauren Banerjee RN - 06/04/2016 6:03 PM EST Patient Name: Barbara Casarez Patient Age: 80 y.o. Birthdate: 1935 Admit date: 06/04/2016 Attending Physician: [facility] MD Pt arrived from EP lab in bed, alert and oriented x 4, denies pain, HR 76 with 100% ventricular pacing and occ. atrial pacing, hypertensive, left chest dressing clean and intact. Pt oriented to room and call light, friend at bedside. Joseph Vazquez RN - 06/04/2016 2:06 PM EST Ep lab 3 pacemaker insert. Case cart [id number] documented in this encounter H&P Notes [facility] MD - 06/04/2016 11:00 AM EST See clinic visit from earlier today. documented in this encounter Miscellaneous Notes Plan of Care - Sindhu Eric RN - 06/05/2016 4:55 AM EST Problem: Patient Care Overview Goal: Plan of Care Review Outcome: Ongoing (Interventions Implemented as Appropriate) 06/05/16 0450 Coping/Psychosocial Plan Of Care Reviewed With patient Plan of Care Review Progress progress toward functional goals is gradual OUTCOME EVALUATION NOTE: OUTCOME SUMMARY: VSS, afebrile, O2 sats stable on RA. AV and A pacing on tele. PM site CDI with no bleeding or hematoma noted. Pain controlled with Tylenol. NPO after MN for am CXR. BP elevated this shift. [id number]. Cont'd with scheduled meds. Pt tolerating PO intake well, ambulating and voiding without difficulty. PLAN MOVING FORWARD: AM CXR, DC home later today INDIVIDUALIZED FALL PREVENTION INTERVENTIONS: Patient-specific fall risk factors per assessment: [current deficits]: NA Assistance [level of assistance required for transfers and ambulation]: independent Supervision [direct monitoring required during toileting and ADLs]: independent Surveillance [continuous indirect monitoring]: Tele, pulse oximetry, purposeful rounding Patient-specific fall prevention interventions for sensory deficits provided, if applicable: NA CPG GOAL OUTCOME EVALUATION: Goal: Individualization & Mutuality Outcome: Ongoing (Interventions Implemented as Appropriate) 06/05/16449 Mutuality/Individual Preferences What Anxieties, Fears or Concerns Do You Have About Your Health or Care? none What Questions Do You Have About Your Health or Care? none What Information Would Help Us Give You More Personalized Care? none Goal: Fall Prevention-Safe Patient Handling Outcome: Ongoing (Interventions Implemented as Appropriate) 06/04/16195406/05/1641306/05/16449 Musculoskeletal Interventions Muscle Strengthening -- -- activity/mobility promoted Pierre Fall Risk History of Falling 0 -- -- Secondary Diagnosis 15 -- -- Ambulatory Aids 0 -- -- Intravenous Therapy/Heparin/Saline Lock 20 -- -- Gait/Transferring 0 -- -- Mental Status 0 -- -- Score 35 -- -- OTHER Pierre Fall Risk Med -- -- Restraint Interventions Safety Promotion/Fall Prevention -- activity supervised;fall prevention program maintained;nonskid shoes/slippers when out of bed;safety round/check completed -- Positioning Body Position -- up in chair -- Goal: Infection Control Outcome: Ongoing (Interventions Implemented as Appropriate) 06/04/161954 Safety Interventions Isolation Precautions standard precautions maintained Infection Prevention single patient room provided;rest/sleep promoted Coping Strategies Supportive Measures active listening utilized;verbalization of feelings encouraged Goal: Discharge Needs Assessment Outcome: Ongoing (Interventions Implemented as Appropriate) 06/05/16449 Discharge Needs Assessment Concerns To Be Addressed no discharge needs identified Readmission Within The Last 30 Days no previous admission in last 30 days Equipment Needed After Discharge none Discharge Disposition home or self-care Current Health Anticipated Changes Related to Illness none Activity/Self Care Review of Systems Equipment Currently Used at Home none documented in this encounter Plan of Treatment Upcoming Encounters Date Type Specialty Care Team Description 04/06/2022 Appointment Pulmonology 04/06/2022 Office Visit Pulmonology Matt Watson MD [facility] PULMON[facility]NER [place], [place] [address] (Wo rk) documented as of this encounter Procedures Procedure Name Priority Date/Time Associated Diagnosis Comme nts XR CHEST PA AND Routine 06/05/2016 7:52 AM Result s for this LATERAL EST procedure are i n the results section. ABORH RECHECK STATUS Routine 06/04/2016 12:01 Res ults for this PM EST procedure are i n the results section. TYPE AND SCREEN, SDP Routine 06/04/2016 12:01 Complete AV bloc k (FUTURE SURGERY, PM EST [facility] SAME DAY PROGRAM ONLY) ABO/RH TYPING Routine 06/04/2016 12:01 Complete AV block Resul ts for this PM EST procedure are i n the results section. ANTIBODY SCREEN Routine 06/04/2016 12:01 Complete AV block Res ults for this PM EST procedure are i n the results section. HEMOGRAM STAT 06/04/2016 12:00 Complete AV block Result s for this PM EST procedure are i n the results section. DIFFERENTIAL, STAT 06/04/2016 12:00 Complete AV block Resul ts for this AUTOMATED PM EST procedure are i n the results section. PROTHROMBIN TIME STAT 06/04/2016 12:00 Abnormal coagulation Results for this PM EST profile procedure are in Complete AV block the result s section. CBC (WITH DIFF) STAT 06/04/2016 12:00 Complete AV block PM EST BASIC METABOLIC STAT 06/04/2016 12:00 Complete AV block Res ults for this PANEL (NON-FASTING) PM EST procedur e are in the results section. RESIDENTIAL SALES SCAN 06/04/2016 12:00 AM EST documented in this encounter Results XR Chest PA & Lateral (Generic) (06/05/2016 7:52 AM EST) Anatomical Region Laterality Modality Chest N/A Digital Radiography Specimen (Source) Anatomical Location Collection Method / Collectio n Time Received Time / Laterality Volume Impressions 06/05/2016 11:42 AM EST 1. ??No pneumothorax post device placement. I have personally reviewed the image(s) and the residents interpretation and agree with the findings, Martha medellin t 06/05/2016 11:42 AM Narrative 06/05/2016 11:42 AM EST EXAMINATION: XR CHEST PA AND LATERAL (GENERIC) CLINICAL HISTORY: s/p left sided,, dual chamber pacemaker. Assess for pneumothorax, lead position, do not lift elbow above shoulder. TECHNIQUE: Upright PA and lateral chest radiograph COMPARISON: 04/26/2015 FINDINGS: Interval placement of a MRI compatible d ual-lead pacemaker device in the left chest wall with dual leads projecting ov er the expected locations of the left atrium and left ventricle. The 2 leads a re indeterminate with respect to MRI compatibility. No pneumothorax or pleural effusion. The lungs are clear. The cardiomediastinal silhouette, alisha, pulmonary vascular mar kings are within normal limits. Procedure Note Martha Nino MD - 06/05/2016Formatt ing of this note might be different from the original. EXAMINATION: XR CHEST PA AND LATERAL (GE NERIC) CLINICAL HISTORY: s/p left sided,, dual chamber pacemaker. Assess for pneumothorax, lead position, do not lift elbow above shoulder. TECHNIQUE: Upright PA and lateral chest radiograph COMPARISON: 04/26/2015 FINDINGS: Interval placement of a MRI compatible d ual-lead pacemaker device in the left chest wall with dual leads projecting ov er the expected locations of the left atrium and left ventricle. The 2 leads a re indeterminate with respect to MRI compatibility. No pneumothorax or pleural effusion. The lungs are clear. The cardiomediastinal silhouette, alisha, pulmonary vascular mar kings are within normal limits. IMPRESSION 1. No pneumothorax post device placement . I have personally reviewed the image(s) and the residents interpretation and agree with the findings, Martha hollins 06/05/2016 11:42 AM [facility] MD IMG DX ORDERABLES ABORH Recheck Status (06/04/2016 12:01 PM EST) [facility] Method Time Signature ABORH Recheck Order Placed [facility] LABORATORY ABORH Type Not Performed [facility] LABORATORY Specimen Anatomical Collection Method Collection Time Receive d Time (Source) Location / / Volume Laterality Blood specimen 06/04/2016 12:01 7 (specimen) PM EST 12:01 PM EST Resulting Agency Comment Spec In Lab Bismark Wade MD BLOOD BANK ORDERABLES Performing Organization Address City/[facility]/[place] [address] Antibody screen (06/04/2016 12:01 PM EST) [facility] Method Time Signature Ab Screen Negative [facility] LABORATORY Expires at 06/07/2016 [facility] [id number] on: [facility] Specimen Anatomical Collection Method Collection Time Receive d Time (Source) Location / / Volume Laterality Blood specimen 06/04/2016 12:01 7 (specimen) PM EST 12:01 PM EST Resulting Agency Comment Spec In Lab Bismark Wade MD BLOOD BANK ORDERABLES Performing Organization Address City/[facility]/[place] [address] ABO/Rh Typing (06/04/2016 12:01 PM EST) athologist Signature ABORh Type A Pos [facility] LABORATORY Specimen Anatomical Collection Method Collection Time Receive d Time (Source) Location / / Volume Laterality Blood specimen 06/04/2016 12:01 7 (specimen) PM EST 12:01 PM EST Resulting Agency Comment Spec In Lab Bismark Wade MD BLOOD BANK ORDERABLES Performing Organization Address City/[facility] Code Phon e Number [address] (ABNORMAL) Differential, Automated (06/04/2016 12:00 PM EST) [facility] Method Time Signature Neutrophils % 67.7 % [facility] LABORATORY Neutr Abs (ANC) 7.08 (H) 1.70 - [facility] 6.10 [facility] x10(3)/[facility] L LABORATORY Lymphocytes % 23.3 % [facility] LABORATORY Lymphocytes Abs 2.4 0.9 - 3.2 [facility] x10(3)/[facility] LABORATORY Monocytes % 6.8 % [facility] LABORATORY Monocyte Abs 0.7 0.3 - 0.9 [facility] x10(3)/[facility] LABORATORY Eosinophils % 1.3 % [facility] LABORATORY Eosinophils Abs 0.1 0.0 - 0.4 [facility] x10(3)/[facility] LABORATORY Basophils % 0.5 % [facility] LABORATORY Basophils Abs 0.0 0.0 - 0.1 [facility] x10(3)/[facility] LABORATORY Immature Gran % 0.40 % [facility] LABORATORY Comment: Immature granulocytes(IG's)percentage an d absolute count will include metamyelocytes, myelocytes, and promyelo cytes. Blood smears from CBCs yielding IG's will be scanned manually for concor dance. If this scan disagrees with the automated IG or if promyelocytes are not ed, a manual differential will be performed. Елена Gran Abs 0.04 0.00 - 0.04 x10(3)/[facility]3] LABORATORY Specimen Anatomical Collection Method Collection Time Receive d Time (Source) Location / / Volume Laterality Blood specimen 06/04/2016 12:00 7 (specimen) PM EST 12:08 PM EST Resulting Agency Comment Spec In Lab Bismark Wade MD HEMATOLOGY ORDERABLES Performing Organization Address City/State/[place] [address] (ABNORMAL) Hemogram (06/04/2016 12:00 PM EST) Analysis Performed At Patho logist Time Signature WBC 10.5 (H) 4.0 - 9.5 [facility] x10(3)/[facility] LABORATORY RBC 4.85 4.00 - [facility] 5.21 [facility] x10(6)/[facility] LABORATORY Hemoglobin 13.7 11.7 - [facility] 15.5 gm/dL [facility] Hematocrit 43.8 35.7 - [facility] 45.8 % [facility] MCV 90.3 82.6 - [facility] 94.4 fL [facility] MCH 28.2 27.1 - JIM ALMARAZ 32.0 pg [facility] MCHC 31.3 (L) 31.7 - JIM RUFINA 35.0 gm/dL [facility] LAB[facility] Platelets 141 (L) 145 - 357 [facility] x10(3)/[facility] LABORATORY RDWSD 43.1 37.0 - [facility] RUFINA 46.0 [facility] LABORATORY RDWCV 13.1 11.5 - [facility] 14.1 % [facility] MPV 11.7 7.6 - 12.9 [facility] LABORATORY nRBC % Auto 0.0 % [facility] LABORATORY nRBC Abs Auto 0.000 0.000 - [facility] 0.000 [facility] x10(3)/[facility] LABORATORY Specimen Anatomical Collection Method Collection Time Receive d Time (Source) Location / / Volume Laterality Blood specimen 06/04/2016 12:00 7 (specimen) PM EST 12:08 PM EST Resulting Agency Comment Spec In Lab Bismark Wade MD HEMATOLOGY ORDERABLES Performing Organization Address City/State/[place] [address] Prothrombin Time (06/04/2016 12:00 PM EST) athologist Signature PT 14.1 12.0 - 15.0 [facility] LABORATORY Comment: An INR <2.0 indicates [...] linical circumstances. INR 1.0 0.9 - 1.1 [facility] LABORATORY Specimen Anatomical Collection Method Collection Time Receive d Time (Source) Location / / Volume Laterality Blood specimen 06/04/2016 12:00 7 (specimen) PM EST 12:08 PM EST Resulting Agency Comment Spec In Lab Bismark Wade MD HEMATOLOGY ORDERABLES Performing Organization Address City/State/[place] [address] (ABNORMAL) Basic Metabolic Panel (non-fasting) (06/04/2016 12:00 PM EST) athologist Signature Glucose Lvl 100 65 - 199 [facility] mg/dL [facility] Comment: Diabetes: >=200 mg/dL plus symp toms BUN 19 (H) 8 - 18 mg/dL [facility] LABORATORY Creatinine 0.89 0.70 - 1.20 mg/dL [facility] LABORATORY Comment: Please note that the pediatric reference intervals supplied above were not validated at [facility]. Results from pediatri c patients should be interpreted in conjunction to the patient's age, height and muscle mass. Sodium 146 (H) 135 - 145 mmol/L [facility] LABORATORY Potassium 3.8 3.5 - 5.0 mmol/L [facility] LABORATORY Comment: Please note: ??Patients with WBC >100,00 0 may have falsely elevated Potassium levels. ??For accurate Potassium quantif ication in these patients send serum separator tube (gold top) for subsequent determinations. ??Contact the Clinical Chemistry Laboratory if there are any qu estions. Chloride 105 98 - 107 mmol/L [facility] LABORATORY CO2 25 22 - 31 mmol/L [facility] LABORATORY Anion Gap 16 (H) 5 - 15 mmol/L [facility] LABORATORY Calcium 9.2 8.5 - 10.5 mg/dL [facility] LABORATORY Estimated GFR >60 >=60 [facility] LABORATORY Comment: This estimated GFR (eGFR) value [...] the following links into your internet browser. [email or web address] Specimen Anatomical Collection Method Collection Time Receive d Time (Source) Location / / Volume Laterality Blood specimen 06/04/2016 12:00 7 (specimen) PM EST 12:08 PM EST Resulting Agency Comment Spec In Lab Bismark Wade MD CHEMISTRY ORDERABLES Performing Organization Address City/State/ZIP Code Phon e Number [place] [id number] SCAN DOC: RESIDENTIAL SALES (06/04/2016 12:00 AM EST) Narrative This result has an attachment that is no t available. Scanning Provider MEDIA MGR SCAN EXT ORDR/RSLT documented in this encounter Visit Diagnoses Diagnosis Complete AV block Atrioventricular block, complete Complete AV block Atrioventricular block, complete Abnormal coagulation profile Abnormal coagulation profile documented in this encounter Admitting Diagnoses Diagnosis Acquired complete AV block Atrioventricular block, complete documented in this encounter Administered Medications Inactive Administered Medications - up to 3 most recent administrations Medication Order MAR Action Action Date Dose Rate Site acetaminophen (TYLENOL) tablet Given 06/05/2016 4:37 AM EST 1,00 0 mg 1,000 mg 1,000 mg, Oral, EVERY 6 HOURS PRN, Starting on Krystal 06/04/16 at 1752, Until Wed06/05/16 at 1341, Pain, Mild to moderate pain, Administer for mild to moderate pain. (maximum daily dose 4 gm), Recovery (Recovery-Hospital Unit), Routine Given 06/04/2016 6:27 PM EST 1,000 mg aspirin chewable tablet 81 mg Given 06/05/2016 9:19 AM EST 81 mg 81 mg, Oral, DAILY, First dose on Wed06/05/16 at 0900, Until Discontinued, Routine atorvastatin (LIPITOR) tablet 80 mg Given 06/04/2016 8:24 PM EST 80 mg 80 mg, Oral, EVERY EVENING, First dose on Krystal 06/04/16 at 2100, Until Discontinued, Routine BUpivacaine (PF) (MARCAINE) 0.5 % (5 mg/mL) Given 06/04/2016 2:00 PM EST 150 mg injection 150 mg 150 mg (30 mL), Subcutaneous, ONCE, 1 dose, On Krystal 06/04/16 at 1315, EP (Intra-Procedure), Routine ceFAZolin (ANCEF) 1g in dextrose 5% Given 06/05/2016 4:25 AM EST 1,000 mg 100 mL/hr 50mL 1,000 mg (1 g), Intravenous, EVERY 8 HOURS, 2 doses, First dose on Wed06/04/16 at 2100, Last dose on Wed06/05/16 at 0500, Administer over 30 Minutes, Recovery (Recovery-Hospital Unit), Indication for (Active or Suspected): Prophylaxis Given 06/04/2016 8:25 PM EST 1,000 mg 100 mL/hr ceFAZolin (ANCEF) 2,000 mg in Given 06/04/2016 1:31 PM EST 2,000 mg 112.1 mL/hr sodium chloride 0.9% 56.06 mL 2,000 mg (2 g), Intravenous, ONCE, 1 dose, On Wed06/04/16 at 1315, Administer over 30 Minutes, For use in the electrophysiology lab (EP lab) only for procedural sedation with direct provider supervision and verbal order., EP (Intra-Procedure), Indication for (Active or Suspected): Prophylaxis fentaNYL 50mcg/mL injection Given 06/04/2016 2:08 PM EST 25 mcg 25-50 mcg, Intravenous, EVERY 5 MIN PRN, Starting on Wed06/04/16 at 1259, Until Krystal 06/04/16 at 1752, Pain, As needed to induce or maintain moderate sedation per [facility] Moderate Sedation Policy for the duration of the EP procedure., As needed to induce or maintain moderate sedation per [facility] Moderate Sedation Policy for the duration of the EP procedure. For use in the electrophysiology lab (EP lab) only for procedural sedation with direct provider supervision and verbal order. RASS goal (-)2 to (-)3. Start at 25 mcg, Dose not to exceed 50 mcg/dose, 250 mcg/hr, or 20 mcg/kg per case., EP (Intra-Procedure), Routine Given 06/04/2016 2:05 PM EST 25 mcg Given 06/04/2016 1:53 PM EST 25 mcg hydroCHLOROthiazide (HYDRODIURIL) tablet 25 mg Given 06/05/2016 9:20 AM EST 25 mg 25 mg, Oral, DAILY, First dose on Wed06/05/16 at 0900, Until Discontinued, Routine letrozole (FEMARA) tablet 2.5 mg Given 06/04/2016 8:28 PM EST 2.5 mg 2.5 mg, Oral, NIGHTLY, First dose on Wed06/04/16 at 2100, Until Discontinued, Routine lidocaine (XYLOCAINE) 20 mg/mL (2 %) Given 06/04/2016 2:00 PM ES T 400 mg injection 400 mg 400 mg (20 mL), Subcutaneous, ONCE, 1 dose, On Wed06/04/16 at 1315, EP (Intra-Procedure), Routine lisinopril (PRINIVIL;ZESTRIL) tablet 20 mg Given 06/05/2016 9:20 AM EST 20 mg 20 mg, Oral, 2 TIMES DAILY, First dose on Wed06/04/16 at 2100, Until Discontinued, Routine Given 06/04/2016 8:25 PM EST 20 mg meTOPROLOL succinate (TOPROL-XL) XL tablet 50 Given 6:28 PM EST 50 mg mg 50 mg, Oral, DAILY, First dose on Wed06/04/16 at 1830, Until Discontinued, DO NOT CRUSH OR OPEN, Routine meTOPROLOL succinate (TOPROL-XL) XL tablet 50 Given 9:20 AM EST 50 mg mg 50 mg, Oral, 2 TIMES DAILY, First dose (after last modification) on Wed06/05/16 at 0900, Until Discontinued, DO NOT CRUSH OR OPEN, Routine midazolam (PF) (VERSED) 1 mg/mL injection Given 06/04/2016 2:05 PM EST 0.5 mg 0.5-1 mg 0.5-1 mg, Intravenous, EVERY 5 MIN PRN, Starting on Wed06/04/16 at 1259, Until Wed06/04/16 at 1752, Anxiety, As needed to induce or maintain moderate sedation per [facility] Moderate Sedation Policy for the duration of the EP procedure., As needed to induce or maintain moderate sedation per [facility] Moderate Sedation Policy for the duration of the EP procedure. For use in the electrophysiology lab (EP lab) only for procedural sedation with direct provider supervision and verbal order. RASS goal (-)2 to (-)3. Dose not to exceed 1 mg per dose, 5mg/hour, or 0.2mg/kg per case., EP (Intra-Procedure), Routine Given 06/04/2016 1:53 PM EST 1 mg Given 06/04/2016 1:41 PM EST 1 mg neomycin-polymyxin B (NEOSPORIN) irrigation Given 06/04/2016 2:3 5 PM EST solution Irrigation, ONCE, On Krystal 06/04/16 at 1315, 1 dose, EP (Intra-Procedure) documented in this encounter Active and Recently Administered Medications Times are shown in EST. Scheduled Medication Order 06/03/2016 06/04/2016 06/05/2016 aspirin chewable tablet 81 mg 09 (Given - Provider: Lauren Banerjee, BLAS) 81 mg, Oral, DAILY, First dose on 11/14 at 0900, Until Discontinued, Routine atorvastatin (LIPITOR) tablet 80 mg 2023 (Given - Provider: Sindhu Eric, BLAS) 80 mg, Oral, EVERY EVENING, First dose o n Krystal 06/04/16 at 2100, Until Discontinued, Routine BUpivacaine (PF) (MARCAINE) 0.5 % (5 mg/mL) injection 150 mg (COMPLETED) 1400 (Given - Provider: Joseph Vazquez RN) 150 mg (30 mL), Subcutaneous, ONCE, 1 do se, Krystal 06/04/16 at 1315, EP (Intra- Procedure), Routine ceFAZolin (ANCEF) 1g in dextrose 5% 50mL (COMPLETED) 2024 (Given - Provider: Sindhu Eric RN) 0425 (Given - Provider: Sindhu horowitz RN) 1,000 mg (1 g), Intravenous, EVERY 8 MARY ANNE RS, 2 doses, First dose on Krystal 06/04/16 at 2100, Last dose on Wed06/05/16 at 0500, Administer over 30 Minutes, Recovery (Recovery-Hospital Unit), Indication for (Active or Suspected): Prophylaxis ceFAZolin (ANCEF) 2,000 mg in sodium chloride 0.9% 56.06 mL (COMPLETED) 1331 (Given - Provider: Joseph Vazquez RN) 2,000 mg (2 g), Intravenous, ONCE, 1 dos e, Krystal 06/04/16 at 1315, Administer over 30 Minutes, For use in the electrophysiology lab (EP lab) only for procedural sedation with direct provider supervision and verbal order., EP (Intra-Procedure), In dication for (Active or Suspected): Prophylaxis hydroCHLOROthiazide (HYDRODIURIL) tablet 25 mg 09 (Given - Provider: Lauren Banerjee RN) 25 mg, Oral, DAILY, First dose on 11/14 at 0900, Until Discontinued, Routine letrozole (FEMARA) tablet 2.5 mg 2027 (G iven - Provider: Sindhu Eric RN) 2.5 mg, Oral, NIGHTLY, First dose on Wed06/04/16 at 2100, Until Discontinued, Routine lidocaine (XYLOCAINE) 20 mg/mL (2 %) injection 400 mg (COMPL ETED) 1400 (Given - Provider: Joseph Vazquez RN) 400 mg (20 mL), Subcutaneous, ONCE, 1 do se, Wed06/04/16 at 1315, EP (Intra- Procedure), Routine lisinopril (PRINIVIL;ZESTRIL) tablet 20 mg 2024 (Given - Provider: Sindhu Eric RN) 0920 (Given - Provider: Lauren matthews RN) 20 mg, Oral, 2 TIMES DAILY, First dose o n Wed06/04/16 at 2100, Until Discontinued, Routine meTOPROLOL succinate (TOPROL-XL) XL tablet 50 mg (CANCELED) 1827 (Given - Provider: Lauren Banerjee RN) 50 mg, Oral, DAILY, First dose on 10/14 at 1830, Until Discontinued, DO NOT CRUSH OR OPEN, Routine meTOPROLOL succinate (TOPROL-XL) XL tablet 50 mg 919 (Given - Provider: Lauren Banerjee RN) 50 mg, Oral, 2 TIMES DAILY, First dose o n Wed06/05/16 at 0900, Until Discontinued, DO NOT CRUSH OR OPEN, Routine neomycin-polymyxin B (NEOSPORIN) irrigation solution (COMPLE CASSIDY) 1435 (Given - Provider: Joseph Vazquez RN) Irrigation, ONCE, Krystal 06/04/16 at 1315, For 1 dose, EP (Intra-Proc edure) PRN Medication Order 06/03/2016 06/04/2016 06/05/2016 acetaminophen (TYLENOL) tablet 1,000 mg 182 (Given - Provider: Lauren Banerjee RN) 0437 (Given - Provider: Sindhu horowitz RN) 1,000 mg, Oral, EVERY 6 HOURS PRN, Start ing Krystal 06/04/16 at 1752, Until 06/05/16 at 1341, Pain, Mild to moderate pain, Administer for mild to moderate pain. (maximum daily dose 4 gm), Recovery (Recovery-Hospital Unit), Routine fentaNYL 50mcg/mL injection (CANCELED) 1 340 (Given - Provider: Joseph Vazquez RN)1348 (Given - Provider: Joseph Vazquez RN)1353 (Given - Provider: Joseph Vazquez RN)1405 (Given - Provider: Joseph Vazquez RN)1408 (Given - Provider: Joseph Vazquez RN) 25-50 mcg, Intravenous, EVERY 5 MIN PRN, Starting Krystal 06/04/16 at 1259, Until Krystal 06/04/16 at 1752, Pain, As needed to induce or maintain moderate sedation per [facility] Moderate Sedation Policy for the duration of the EP procedure., As needed to stacy ce or maintain moderate sedation per [facility] Moderate Sedation Policy for the duration of the EP procedure. For use in the electrophysiology lab (EP lab) only for pr ocedural sedation with direct provider s upervision and verbal order. RASS goal (-)2 to (-)3. Start at 25 mcg, Dose not to exceed 50 mcg/dose, 250 mcg/hr, or 20 mcg/kg per case., EP (Intra-Procedure), Routine midazolam (PF) (VERSED) 1 mg/mL injection 0.5-1 mg (CANCELED ) 1341 (Given - Provider: Joseph Vazquez RN)1353 (Given - Provider: Joseph Vazquez RN)1405 (Given - Provider: Joseph Vazquez RN) 0.5-1 mg, Intravenous, EVERY 5 MIN PRN, Starting Krystal 06/04/16 at 1259, Until Krystal 06/04/16 at 1752, Anxiety, As needed to induce or maintain moderate sedation per [facility] Moderate Sedation Policy for the durati on of the EP procedure., As needed to in duce or maintain moderate sedation per [facility] Moderate Sedation Policy for the duration of the EP procedure. For use in the electrophysiology lab (EP lab) only for procedural sedation with direct provider supervision and verbal order. RASS goal (-)2 to (-)3. 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
--- OUTSIDE RECORDS SUMMARY | 2022-04-03 12:32 | XMS_ITS | Encounter Summary ---
:1935 [place] [address] Care Team Providers Name Role Phone Matt Mcdonnell Martha KHAN Primary Care Provider Reason for Visit Auth/Cert Specialty Diagnoses / Procedures Referred By Contact Refer red To Contact Diagnoses Acquired complete AV block CHB Procedures ELECTROPHYSIOLOGY PROCEDURE Referral ID Status Reason Start Date Expiration Date Visits Requ ested Visits Authorized [id number] 1 1 Encounter Details Date Type Department Care Team Description 06/04/2016 - Hospital Encounter Short Stay Unit at [facility], Complete AV block; 06/05/2016 Cookie Montoya MD Abnormal coagulation profile [facility] [place] [id number] [phone] Social History Tobacco Use Types Packs/Day Years [...] Sign Reading Time Taken Comments Blood Pressure 169/51 06/05/2016 6:09 AM EST Pulse 74 06/05/2016 6:56 AM EST Temperature 36.5 ??C (97.7 ??F) 06/05/2016 6:56 AM EST Respiratory Rate 18 06/05/2016 6:56 AM EST Oxygen Saturation 95% 06/05/2016 6:56 AM EST Inhaled Oxygen Concentration - - Weight 82.3 kg (181 lb 6.4 oz) 06/05/2016 4:14 AM EST Height 149.9 cm (4' 11) 06/04/2016 11:07 AM EST Body Mass Index 36.64 06/04/2016 11:07 AM EST documented in this encounter Discharge Summaries [facility] MD - 06/05/2016 10:40 AM EST Cardiac Electrophysiology Discharge Summary Patient Name: Barbara Casarez Patient Age: 80 y.o. Language: [place] Race: White Ethnicity: Not nor Admit date: 06/04/2016 Discharge date and time: 06/05/2016 Attending Physician: [facility] MD Discharge Physician: [facility] MD Follow-up Recommendations for Providers: - 10 day wound check in device clinic [place] [facility] [place] 3 month follow up for pacemaker [...] cancer Operations/Major Procedures: Generator: Medtronic Advisa A2DR01 ([id number]) - Left implant 06/04/16 RA Lead: [employer] 5076-45 ([id number]) (06/04/16) RV Lead: Medtronic 5076-52 ([id number]) (06/04/16) History of Presentation: 80 y.o. female with a history of coronary artery disease s/p OR, paroxysmal atrial fibrillation, hypertension, and right breast [...] chlorhexidine 4 % Liqd Commonly known as: HIBICLEPARAS Smoking Status at Discharge: History Smoking Status ??? Never Smoker Smokeless Tobacco ??? Not on file Instructions Given to Patient at Discharge: Patient Instructions FINAL PACEMAKER RECOMMENDATIONS: 1. Standard post implant discharge instructions (see below): 2. Medications as listed above. Changes: Restart metoprolol succinate (Toprol XL) 50 mg daily 3. Follow up in 10 days in pacemaker clinic at [facility], for wound check and Carelink monitor 4. Follow up in pacemaker clinic at Dr. Coyne's office in 3 months to establish care CALL IMMEDIATELY: If you develop chest pain, shortness of breath, bleeding, discharge from the incision, opening of the incision and/or fever/temperature >100 degrees F. The office phone number is [phone]. WOUND CARE FOR YOUR INCISION: Your wound [...] the incision. Make sure to use a hand cloth examiner (such as a towel) in between the [...] the incision. Make sure to use a hand cloth examiner (such as a towel) in between the [...] this product, please call the office at [phone]. General Instructions None Future Appointments and Orders Future Appointments Provider Department Dept Phone 06/15/2016 10:00 AM Elizabeth Gilman RN Cardiology [phone] 07/17/2016 1:00 PM Yao Feliciano MD Hematology/Oncology [phone] 07/17/2016 1:30 PM STJ INFUSION, ROOM Hematology/Oncology at [facility] [phone] 09/04/2016 11:00 AM Sarah Novoa RN Cardiology [phone] Discharge References/Attachments None documented in this encounter Discharge Instructions Patient InstructionsShira Glover, CLEANER - 06/04/2016 3:36 PM EST FINAL PACEMAKER RECOMMENDATIONS: 1. Standard post implant discharge instructions (see below): 2. Medications as listed above. Changes: Restart metoprolol succinate (Toprol XL) 50 mg daily 3. Follow up in 10 days in pacemaker clinic at [facility], for wound check and Carelink monitor 4. Follow up in pacemaker clinic at Dr. Coyne's office in 3 months to establish care CALL IMMEDIATELY: If you develop chest pain, shortness of breath, bleeding, discharge from the incision, opening of the incision and/or fever/temperature >100 degrees F. The office phone number is [phone]. WOUND CARE FOR YOUR INCISION: Your wound [...] the incision. Make sure to use a hand cloth examiner (such as a towel) in between the [...] the incision. Make sure to use a hand cloth examiner (such as a towel) in between the [...] this product, please call the office at [phone]. documented in this encounter Medications at Time [...] Cardiac Electrophysiology Post-Implant Device Interrogation Barbara Casarez [id number] 06/05/2016 History: Barbara Casarez is a 80 y.o. female with a history of coronary artery disease s/p OR, paroxysmal atrial fibrillation, hypertension, and right breast [...] bilaterally Neuro- A&Ox3 Device Interrogation: Data Generator: [employer] A2DR01 ([id number]) - Left implant 06/04/16 RA Lead: Medtronic 5076-45 ([id number]) (06/04/16) RV Lead: Medtronic 5076-52 ([id number]) (06/04/16) Diagnostics Pacing Mode: DDDR 60-120 Presenting EGMs: -YARN MAN Underlying Rhythm: sinus rhythm 67bpm w/ CHB (VP30) Atrial Episodes: none Ventricular Episodes: none Atrial Pacin.6% Ventricular Pacin.7% Battery and Leads Voltage: 3.06V Status: [facility] Magnet Rate: 85bpm Charge Time: [...] ~10 days SHIRA GLOVER APRN 06/05/2016 Pager: [phone] Lauren Banerjee RN - 06/04/2016 6:03 PM [...] for am CXR. BP elevated this shift. [id number]. Cont'd with scheduled meds. Pt tolerating PO [...] Visit Pulmonology Matt Watson MD [facility] ER PULMONARY TURNER [place], [place] [address] (Wo rk) documented as of [...] AV bloc k (FUTURE SURGERY, PM EST [facility] SAME DAY PROGRAM ONLY) ABO/RH TYPING Routine [...] procedur e are in the results section. SENIOR WRITER SCAN 06/04/2016 12:00 AM EST documented in [...] ABORH Recheck Status (06/04/2016 12:01 PM EST) [facility] Method Time Signature ABORH Recheck Order Placed [facility] LABORATORY ABORH Type Not Performed [facility] LABORATORY Specimen Anatomical Collection Method Collection Time Receive d Time (Source) Location / / Volume Laterality Blood specimen 06/04/2016 12:01 7 (specimen) PM EST 12:01 PM EST Resulting Agency Comment Spec In Lab [facility] MD BLOOD BANK ORDERABLES Performing Organization Address City/[facility]/[place] [address] Antibody screen (06/04/2016 12:01 PM EST) [facility] Method Time Signature Ab Screen Negative [facility] LABORATORY Expires at 06/07/2016 [facility] 2359 on: [facility] LABORATORY Specimen Anatomical Collection Method Collection Time Receive d Time (Source) Location / / Volume Laterality Blood specimen 06/04/2016 12:01 7 (specimen) PM EST 12:01 PM EST Resulting Agency Comment Spec In Lab [facility] MD BLOOD BANK ORDERABLES Performing Organization Address City/[facility]/ZIP Code Phon e Number [address] ABO/Rh Typing (06/04/2016 12:01 PM EST) P athologist Signature ABORh Type A Pos [facility] LABORATORY Specimen Anatomical Collection Method Collection Time Receive d Time (Source) Location / / Volume Laterality Blood specimen 06/04/2016 12:01 7 (specimen) PM EST 12:01 PM EST Resulting Agency Comment Spec In Lab [facility] MD BLOOD BANK ORDERABLES Performing Organization Address City/[facility]/[place] [address] (ABNORMAL) Differential, Automated (06/04/2016 12:00 PM EST) [facility] Method Time Signature Neutrophils % 67.7 % [facility] LABORATORY Neutr Abs (ANC) 7.08 (H) 1.70 - [facility] 6.10 [facility] x10(3)/[facility] L LABORATORY Lymphocytes % 23.3 % [facility] LABORATORY Lymphocytes Abs 2.4 0.9 - 3.2 [facility] x10(3)/[facility] LABORATORY Monocytes % 6.8 % [facility] LABORATORY Monocyte Abs 0.7 0.3 - 0.9 [facility] x10(3)/[facility] LABORATORY Eosinophils % 1.3 % [facility] LABORATORY Eosinophils Abs 0.1 0.0 - 0.4 [facility] x10(3)/[facility] LABORATORY Basophils % 0.5 % [facility] LABORATORY Basophils Abs 0.0 0.0 - 0.1 [facility] x10(3)/[facility] LABORATORY Immature Gran % 0.40 % [facility] LABORATORY Comment: Immature granulocytes(IG's)percentage an d absolute count will include metamyelocytes, myelocytes, and promyelo cytes. Blood smears from CBCs yielding IG's will be scanned manually for concor dance. If this scan disagrees with the automated IG or if promyelocytes are not ed, a manual differential will be performed. Елена Gran Abs 0.04 0.00 - 0.04 x10(3)/[facility] MAR Y [facility] LABORATORY Specimen Anatomical Collection Method Collection Time Receive d Time (Source) Location / / Volume Laterality Blood specimen 06/04/2016 12:00 7 (specimen) PM EST 12:08 PM EST Resulting Agency Comment Spec In Lab [facility] MD HEMATOLOGY ORDERABLES Performing Organization Address City/State/[place] [address] (ABNORMAL) Hemogram (06/04/2016 12:00 PM EST) Analysis Performed At Patho logist Time Signature WBC 10.5 (H) 4.0 - 9.5 [facility] x10(3)/[facility] LABORATORY RBC 4.85 4.00 - [facility] 5.21 [facility] x10(6)/[facility] LABORATORY Hemoglobin 13.7 11.7 - [facility] 15.5 gm/dL [facility] LABORATORY Hematocrit 43.8 35.7 - [facility] 45.8 % [facility] LABORATORY MCV 90.3 82.6 - [facility] 94.4 [facility] LABORATORY MCH 28.2 27.1 - [place] 32.0 pg [facility] LABORATORY MCHC 31.3 (L) 31.7 - [place] 35.0 gm/dL [facility] LABORATORY Platelets 141 (L) 145 - 357 [facility] x10(3)/[facility] LABORATORY RDWSD 43.1 37.0 - [facility] 46.0 [facility] LABORATORY RDWCV 13.1 11.5 - [facility] 14.1 % [facility] LABORATORY MPV 11.7 7.6 - 12.9 [facility] LABORATORY nRBC % Auto 0.0 % [facility] LABORATORY nRBC Abs Auto 0.000 0.000 - [facility] 0.000 [facility] x10(3)/[facility] LABORATORY Specimen Anatomical Collection Method Collection Time Receive d Time (Source) Location / / Volume Laterality Blood specimen 06/04/2016 12:00 7 (specimen) PM EST 12:08 PM EST Resulting Agency Comment Spec In Lab [facility] MD HEMATOLOGY ORDERABLES Performing Organization Address City/State/[place] [address] Prothrombin Time (06/04/2016 12:00 PM EST) P athologist Signature PT 14.1 12.0 - 15.0 [facility] LABORATORY Comment: An INR <2.0 indicates [...] linical circumstances. INR 1.0 0.9 - 1.1 [facility] LABORATORY Specimen Anatomical Collection Method Collection Time Receive d Time (Source) Location / / Volume Laterality Blood specimen 06/04/2016 12:00 7 (specimen) PM EST 12:08 PM EST Resulting Agency Comment Spec In Lab [facility] MD HEMATOLOGY ORDERABLES Performing Organization Address City/State/[place] [address] (ABNORMAL) Basic Metabolic Panel (non-fasting) (06/04/2016 12:00 PM EST) athologist Signature Glucose Lvl 100 65 - 199 [facility] mg/dL [facility] LABORATORY Comment: Diabetes: >=200 mg/dL plus symp toms BUN 19 (H) 8 - 18 mg/dL [facility] LABORATORY Creatinine 0.89 0.70 - 1.20 mg/dL [facility] LABORATORY Comment: Please note that the pediatric reference intervals supplied above were not validated at [facility]. Results from pediatri c patients should be interpreted in conjunction to the patient's age, height and muscle mass. Sodium 146 (H) 135 - 145 mmol/L [facility] LABORATORY Potassium 3.8 3.5 - 5.0 mmol/L [facility] LABORATORY Comment: Please note: ??Patients with WBC >100,00 0 may have falsely elevated Potassium levels. ??For accurate Potassium quantif ication in these patients send serum separator tube (gold top) for subsequent determinations. ??Contact the Clinical Chemistry Laboratory if there are any qu estions. Chloride 105 98 - 107 mmol/L [facility] LABORATORY CO2 25 22 - 31 mmol/L [facility] LABORATORY Anion Gap 16 (H) 5 - 15 mmol/L [facility] LABORATORY Calcium 9.2 8.5 - 10.5 mg/dL [facility] LABORATORY Estimated GFR >60 >=60 [facility] LABORATORY Comment: This estimated GFR (eGFR) [...] the following links into your internet browser. [email or web address] [email or web address] Specimen Anatomical Collection Method Collection Time Receive d Time (Source) Location / / Volume Laterality Blood specimen 06/04/2016 12:00 7 (specimen) PM EST 12:08 PM EST Resulting Agency Comment Spec In Lab [facility] MD CHEMISTRY ORDERABLES Performing Organization Address City/State/[place] [address] SCAN DOC: SENIOR WRITER (06/04/2016 12:00 AM EST) Narrative This result has an attachment that is no t available. Scanning Provider MEDIA MGR SCAN EXT ORDR/RSLT documented in this encounter Visit Diagnoses Diagnosis Complete AV block Atrioventricular block, complete Abnormal coagulation profile Abnormal coagulation profile Acquired complete AV block Atrioventricular block, complete documented in this encounter Admitting Diagnoses Diagnosis [...] 8 HOURS, 2 doses, First dose on Krystal 06/04/16 [...] (2 g), Intravenous, ONCE, 1 dose, On Krystal 06/04/16 at 1315, Administer over 30 Minutes, For use in the electrophysiology lab (EP lab) only for procedural sedation with direct provider supervision and verbal order., EP (Intra-Procedure), Indication for (Active or Suspected): Prophylaxis fentaNYL 50mcg/mL injection Given 06/04/2016 2:08 PM EST 25 mcg 25-50 mcg, Intravenous, EVERY 5 MIN PRN, Starting on Krystal 06/04/16 at 1259, Until Krystal 06/04/16 at 1752, Pain, As needed to induce or maintain moderate sedation per [facility] Moderate Sedation Policy for the duration of the EP procedure., As needed to induce or maintain moderate sedation per [facility] Moderate Sedation Policy for the duration of [...] (20 mL), Subcutaneous, ONCE, 1 dose, On Krystal 06/04/16 at 1315, EP (Intra-Procedure), Routine lisinopril (PRINIVIL;ZESTRIL) tablet 20 mg Given 06/05/2016 9:20 AM EST 20 mg 20 mg, Oral, 2 TIMES DAILY, First dose on Krystal 06/04/16 at 2100, Until Discontinued, Routine Given 06/04/2016 8:25 PM EST 20 mg meTOPROLOL succinate (TOPROL-XL) XL tablet 50 Given 6:28 PM EST 50 mg mg 50 mg, Oral, DAILY, First dose on Krystal 06/04/16 at 1830, Until Discontinued, DO NOT CRUSH [...] to induce or maintain moderate sedation per [facility] Moderate Sedation Policy for the duration of the EP procedure., As needed to induce or maintain moderate sedation per [facility] Moderate Sedation Policy for the duration of [...] 5 PM EST solution Irrigation, ONCE, On Wed06/04/16 at 1315, 1 dose, EP (Intra-Procedure) documented in this encounter Active and Recently Administered Medications Times are shown in EST. Scheduled Medication Order 06/03/2016 06/04/2016 06/05/2016 aspirin chewable tablet 81 mg 02 16 (Given - Provider: Lauren Banerjee RN) 81 mg, Oral, DAILY, First dose on 11/14 at 0900, Until Discontinued, Routine atorvastatin (LIPITOR) tablet 80 mg 2023 (Given - Provider: Sindhu Eric RN) 80 mg, Oral, EVERY EVENING, First dose o n Wed06/04/16 at 2100, Until Discontinued, Routine BUpivacaine (PF) (MARCAINE) 0.5 % (5 mg/mL) injection 150 mg (COMPLETED) 1400 (Given - Provider: Joseph Vazquez RN) 150 mg (30 mL), Subcutaneous, ONCE, 1 do se, Wed06/04/16 at 1315, EP (Intra- Procedure), Routine ceFAZolin (ANCEF) 1g in dextrose 5% 50mL (COMPLETED) 2024 (Given - Provider: Sindhu Eric RN) 0425 (Given - Provider: Sindhu horowitz RN) 1,000 mg (1 g), Intravenous, EVERY 8 MARY ANNE RS, 2 doses, First dose on Wed06/04/16 at 2100, Last dose on Wed06/05/16 at 0500, Administer over 30 Minutes, Recovery (Recovery-Hospital Unit), Indication for (Active or Suspected): Prophylaxis ceFAZolin (ANCEF) 2,000 mg in sodium chloride 0.9% 56.06 mL (COMPLETED) 1331 (Given - Provider: Joseph Vazquez RN) 2,000 mg (2 g), Intravenous, ONCE, 1 dos e, Wed06/04/16 at 1315, Administer over 30 Minutes, For use in the electrophysiology lab (EP lab) only for procedural sedation with direct provider supervision and verbal order., EP (Intra-Procedure), In dication for (Active or Suspected): Prophylaxis hydroCHLOROthiazide (HYDRODIURIL) tablet 25 mg 0920 (Given - Provider: Lauren Banerjee RN) 25 mg, Oral, DAILY, First dose on 11/14 at 0900, Until Discontinued, Routine letrozole (FEMARA) tablet 2.5 mg 2027 (G iven - Provider: Sindhu Eric, RN) 2.5 mg, Oral, NIGHTLY, First dose on Wed06/04/16 at 2100, Until Discontinued, Routine lidocaine (XYLOCAINE) 20 mg/mL (2 %) injection 400 mg (COMPL ETED) 1400 (Given - Provider: Joseph Vazquez, BLAS) 400 mg (20 mL), Subcutaneous, ONCE, 1 do se, Krystal 06/04/16 at 1315, EP (Intra- Procedure), Routine lisinopril (PRINIVIL;ZESTRIL) tablet 20 mg 2024 (Given - Provider: Sindhu Eric RN) 09 (Given - Provider: Lauren Naidu BLAS justice) 20 mg, Oral, 2 TIMES DAILY, First [...] to induce or maintain moderate sedation per [facility] Moderate Sedation Policy for the duration of the EP procedure., As needed to stacy ce or maintain moderate sedation per [facility] Moderate Sedation Policy for the duration of [...] Starting Krystal 06/04/16 at 1259, Until Krystal 117 at 1752, Anxiety, As needed to induce or maintain moderate sedation per [facility] Moderate Sedation Policy for the durati on of the EP procedure., As needed to in duce or maintain moderate sedation per [facility] Moderate Sedation Policy for the duration of [...] Routine documented in this encounter Care Teams Steward/Stewardess Chief Cargo Vessel Relationship Specialty Start Date End Date Matt Mcdonnell DO PCP - General 11/15/12 11/29/19 [address] [place] [address] documented as of this encounter
--- OUTSIDE RECORDS SUMMARY | 2022-04-03 12:32 | XMS_ITS | Encounter Summary ---
:1935 Author Organization [facility] [place] [address] Care Team Providers Name Role Phone Matt Mcdonnell Primary Care Provider Encounter Details Date Type Department Care Team Description 01/10/2016 Office Visit Hematology/Oncology Yao Feliciano ITP ( idiopathic thrombocytopenic purpura); at [facility] [place] [facility] MD Marisela Malignant neoplasm of right female breas t, unspecified site of breast; [address] [place] [address] CENTER [id number] ONCOLOGY [phone] [place] [id number] Social History Tobacco Use Types Packs/Day Years [...] Sign Reading Time Taken Comments Blood Pressure 159/73 01/10/2016 9:34 AM EDT Pulse 64 01/10/2016 9:34 AM EDT Temperature 36.4 ??C (97.5 ??F) 01/10/2016 9:34 AM EDT Respiratory Rate 16 01/10/2016 9:34 AM EDT Oxygen Saturation 97% 01/10/2016 9:34 AM EDT Inhaled Oxygen Concentration - - Weight 82.6 kg (182 lb) 01/10/2016 9:34 AM EDT Height 147 cm (4' 9.87) 01/10/2016 9:34 AM EDT Body Mass Index 38.2 01/10/2016 9:34 AM EDT documented in this encounter Progress Notes Yoa Feliciano MD - 01/10/2016 9:30 AM EDT Subjective: Patient ID: Barbara Casarez is a 80 y.o. female. Problem List: 1. 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 A. Screening mammogram 11/15/12 [...] cancer cells with immunostaining) Stain Intensity: Strong CT immunoreactivity: Positive (>90% cancer cells with immunostaining) [...] Type: Invasive ductal carcinoma Tumor Grade: Low Zdqkar-Rjbrf-Yharokmpao Score: 5 Tubular Differentiation: 2 Mitotic Rate: 1 Nuclear Grade: 2 Tumor Size: 0.7 cm (maximum diameter) In Situ Histologic Type: Not identified (present in the core bx [id number]) Microcalcifications: Not identified Angiolymphatic Invasion: Not identified [...] L-spine and proximal femurs. 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 [place] to be related to rituxan. Given lack [...] presentation today, she is feeling well overall. Her main complaint continues to be the knee pain. She has been treated with arthrovisc in the past, atlhough not for about a year. She has not wantedto do that because she would not be able to swim for 6 weeks. She is thinking though that she may goahead with that again. She has been taking chondroitin sulfate for the past month. It doesn't seem that that has made much difference to this point. She does not feel that this has been worse since being on femara. She has had a rash in the right flank area this summer and was seen by a physician in [place] and this was felt to represent a staph infection. Her energy level is fairly good. Review of Systems Constitutional: Negative. HENT: Negative. [...] guarding. Genitourinary: Genitourinary Comments: Breast exam - No skin dimpling or [...] 12/0.9. Lytes and LFTs unremarkable Date Plts 11/21/15 118 10/10/15 108 08/16/15 131 07/18/15 [...] mg per day. She is tolerating this well and we will plan to continue. The mammogram done in 11/13 showed no evidence of malignancy. The dexa scan from 04/14 showed a decrease in BMD, now meeting criteria for osteoporosis at the femoral neck. She has been on calcium with vitamin D but had not been taking that consistently. In the past, she had been on fosamax but really does not want to restart that. She is now taking the calcium with D more regularly and has continued the femara. We planned to repeat the dexa scan in a year whichwe would be in 04/15 and we will order that. If the BMD is worsening, switching to tamoxifen would be an option. She also has ITP. The platelet count [...] for some fluctuation, has been stable for the past year. We will continue to monitor. We will check the platelets in 6 weeksand see again in about 3 months with the repeat dexa scan. She had labs checked in evaluation of neuropathy. 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 This is felt to be related to the rituxan. She has not had frequent infection and no intervention for thisis planned at this time. documented in this encounter Plan of Treatment Upcoming Encounters Date Type Specialty Care Team Description 04/06/2022 Appointment Pulmonology 04/06/2022 Office Visit Pulmonology Matt Watson MD [facility] ER PULMONARY [place], [place] [address] (Wo rk) documented as of this encounter Procedures Procedure Name Priority Date/Time Associated Comments Diagnosis DIAGNOSTIC RADIOLOGY 04/09/2016 12:00 AM Results for this SCAN EST procedure are i n the results section. LAB SCAN 02/20/2016 12:00 AM EDT LAB SCAN 01/09/2016 12:00 AM EDT documented in this encounter Results SCAN DOC: DIAGNOSTIC RADIOLOGY (04/09/2016 12:00 AM EST) Narrative This result has an attachment that is no t available. Scanning Provider MEDIA MGR SCAN EXT ORDR/RSLT SCAN DOC: LAB (02/20/2016 12:00 AM EDT) Narrative This result has an attachment that is no t available. Scanning Provider MEDIA MGR SCAN EXT ORDR/RSLT SCAN DOC: LAB (01/09/2016 12:00 AM EDT) Narrative This result has an attachment that is no t available. Scanning Provider MEDIA MGR SCAN EXT ORDR/RSLT documented in this encounter Visit Diagnoses Diagnosis ITP (idiopathic thrombocytopenic purpura ) Immune thrombocytopenic purpura Malignant neoplasm of right female breas t, unspecified site of breast Osteoporosis Osteoporosis, unspecified documented in this encounter Care Teams Metallurgical Engineer Relationship Specialty Start Date End Date Matt Mcdonnell DO PCP - General 11/15/12 11/29/19 [address] [place] [address] documented as of this encounter
--- OUTSIDE RECORDS SUMMARY | 2022-04-03 12:32 | XMS_ITS | Encounter Summary ---
:1935 Author Organization [facility] [place] [address] Care Team Providers Name Role Phone Matt Mcdonnell DO Primary Care Provider Reason for Visit Reason Onset Date Comments Labs Only 05/03/2015 follow up with pt on labs status and NSTEMI Encounter Details Date Type Department Care Team Description 05/03/2015 Telephone Hematology/Oncology at Yancy Arce RN L abs Only (follow up [facility] with pt on labs status [address] and NSTEMI) [place] [address] Social History Tobacco Use Types Packs/Day [...] this encounter Miscellaneous Notes Telephone Encounter - Yancy Arce - 05/03/2015 1:40 PM EST Spoke with Barbara this afternoon to see if she had had labs drawn. Barbara had been inpatient at [facility] from 04/23-04/26 for a NSTEMI. Labs on 04/25 revealed plt count of 59 K, which was reviewed with stated she need not need labs for another month. Barbara is going to get her labs drawn again [id number]. She is recovering well from her heart attack and feeling good, her daughters were home with her over the holidays. She denies any questions or concerns at this time. documented in this encounter Plan of Treatment Upcoming Encounters Date Type Specialty Care Team Description 04/06/2022 Appointment Pulmonology 04/06/2022 Office Visit Pulmonology Matt Watson MD [facility] ER PULMONARY [place] Pat[place], [place] [address] (Wo rk) documented as of this encounter Visit Diagnoses Not on filedocumented in this encounter Care Teams Motor Vehicle Assembly Supervisor Relationship Specialty Start Date End Date Matt Mcdonnell DO PCP - General 11/15/12 11/29/19 [address] [place] [address] documented as of this encounter
--- OUTSIDE RECORDS SUMMARY | 2022-04-03 12:32 | XMS_ITS | Encounter Summary ---
:1935 Author Organization [facility] [place] [address] Care Team Providers Name Role Phone Matt Mcdonnell Martha KHAN Primary Care Provider Encounter Details Date Type Department Care Team Description 12/09/2017 Office Visit Hematology/Oncology Kayleen Ghosh Mali gnant neoplasm of at [facility] CANE FLUME CHUTE OPERATOR female breast, [address] unspecified estrogen [place], [place] [facility] [place] receptor status, [id number] [place] [address] unspecified [phone] (Wo rk) laterality, unspecifi ed site of [...] Sign Reading Time Taken Comments Blood Pressure 159/81 12/09/2017 1:42 PM EDT Pulse 93 12/09/2017 1:42 PM EDT Temperature 36.5 ??C (97.7 ??F) 12/09/2017 1:42 PM EDT Respiratory Rate 16 12/09/2017 1:42 PM EDT Oxygen Saturation 98% 12/09/2017 1:42 PM EDT Inhaled Oxygen Concentration - - Weight 86.6 kg (191 lb) 12/09/2017 1:42 PM EDT Height 147 cm (4' 9.87) 12/09/2017 1:42 PM EDT Body Mass Index 40.09 12/09/2017 1:42 PM EDT documented in this encounter Progress Notes Kayleen Ghosh, CANE FLUME CHUTE OPERATOR - 12/09/2017 1:30 PM EDT Subjective: Patient ID: Barbara Casarez is a 82 y.o. female. Problem List: 1. Cancer of the right breast, [id number], stage IA, low grade, ER/MI positive, Her-2/veronica [...] Type: Invasive ductal carcinoma Tumor Grade: Low Nwadpx-Yncvt-Fyhnfvvvrr Score: 5 Tubular Differentiation: 2 Mitotic Rate: 1 Nuclear Grade: 2 Tumor Size: 0.7 cm (maximum diameter) In Situ Histologic Type: Not identified (present in the core bx [id number]) Microcalcifications: Not identified Angiolymphatic Invasion: Not identified [...] 4 doses on 11/02/14 3. ASCVD s/p MD with v fib [...] 42, IgG - 424, IgM - 23. [place] to be related to rituxan. Given lack [...] CA. ITP has been stable. She has been having a bit more trouble with myalgias and arthralgias and thinks it is likely due to the femara. She also notes occasional vaginal dryness. Review of Systems Constitutional: Positive for chills and fatigue. Negative for fever. HENT: Positive for congestion and sinus pressure. Negative for sinus pain and sore throat. Eyes: Negative. Respiratory: Positive for cough. Cardiovascular: Negative. Gastrointestinal: Negative. Genitourinary: Negative. Musculoskeletal: Positive for arthralgias. Skin: Negative. Neurological: Negative. Psychiatric/Behavioral: Negative. BP 159/81 (Patient Position: Sitting) Pulse 93 Temp 36.5 ??C (97.7 ??F) (Oral) Resp 16 Ht 147 cm (4' 9.87) Wt 86.6 kg (191 lb) SpO2 98% BMI 40.09 kg/m2 Wt Readings from Last 3 Encounters: 12/09/17 86.6 kg (191 lb) 09/03/17 86.2 kg (190 lb) 04/16/17 83.5 kg (184 lb) Objective: Physical Exam Constitutional: She is [...] has no wheezes. She has no rales. Rightbreast exhibits no inverted nipple, no mass, no nipple discharge, no skin change and no tenderness. Left breast exhibits no inverted nipple, no mass, no nipple discharge, no skin change and no tenderness. Abdominal: There is no guarding. Genitourinary: Genitourinary [...] Her behavior is normal. Vitals reviewed. Labs: Date Plts 12/08/17 155 09/02/17 119 04/14/17 149 01/14/17 188 10/01/16 [...] - decadron, 40 mg/day x 4 days Mammogram 11/18/17 REASON FOR EXAM: Screening. History of right breast cancer. ?? TECHNIQUE: CC and MLO views were obtained of both breasts. Computer aided detection was used. 3D tomosynthesis images were obtained in addition to 2D images. ?? Comparison: The study is compared with prior images. ?? FINDINGS: Breast density:There are scattered areas of fibroglandular density. ?? There are no suspicious microcalcifications, masses, or areas of distortion. There are post treatment changes in the right breast. ?? CONCLUSION: No mammographic evidence of malignancy. ?? RECOMMENDATION: Routine screening. ?? BIRADS CATEGORY 2: BENIGN FINDINGS Assessment and Plan: Ms. Casarez is a [...] a 3mo fwup interval. Bilateral mammogram on 11/18/17 was negative. She is now 4yrs out and I will ask that Dr. Feliciano see her in March to have the discussion of whether or not to continue beyond 5yrs with a dexa scan and labs. I have told her she can stop the Femara for a week or two and see if her myalgias/arthralgias improve and if so she may want to have an earlier discussion with Dr. Feliciano regarding the necessity of staying on the Femara through February when she is due to stop. She also has ITP. The platelet count [...] the most recent platelet count is WNL. Kayleen Ghosh, MSN, MANAGER ASSET, AOCN Hematology/Oncology Nurse Practitioner [place], [place] [phone] documented in this encounter Plan of Treatment Upcoming Encounters Date Type Specialty Care Team Description 04/06/2022 Appointment Pulmonology 04/06/2022 Office Visit Pulmonology Matt Watson MD [facility] ER PULMONARY [place], [place] [address] (Wo rk) documented as of this encounter Procedures Procedure Name Priority Date/Time Associated Diagnosis Comme nts LAB SCAN 12/08/2017 12:00 AM Results for this EDT procedure are i n the results section . documented in this encounter Results SCAN DOC: LAB (12/08/2017 12:00 AM EDT) Narrative 12/08/2017 12:00 AM EDT This result has an attachment that is no t available. Ordered by an unspecified provider. Scanning Provider MEDIA MGR SCAN EXT ORDR/RSLT documented in this encounter Visit Diagnoses Diagnosis Malignant neoplasm of female breast, uns pecified estrogen receptor status, unspecified laterality, unspecified site of breast documented in this encounter Care Teams Electrical Appliance Repairer Relationship Specialty Start Date End Date Matt Mcdonnell DO PCP - General 11/15/12 11/29/19 [address] [place] [address] documented as of this encounter
--- OUTSIDE RECORDS SUMMARY | 2022-04-03 12:32 | XMS_ITS | Encounter Summary ---
:1935 Author Organization [facility] Address [address] [place] [address] Care Team Providers Name Role Phone FritzMatt hollins Martha KHAN Primary Care Provider Encounter Details Date Type Department Care Team Description 11/10/2016 Hospital Encounter Mammography at [facility] Yao Feliciano [facility] MD Marisela screening mammogram Drive [facility] for malignant [place], [place] CENTER neoplasm of breast [phone] ONCOLOGY [phone] [place] [address] Social History Tobacco Use Types Packs/Day Years [...] 04/06/2022 Office Visit Pulmonology Matt Watson MD [facility] PULMONARY [place], [place] [address] (Wo rk) documented as of this encounter Procedures Procedure Name Priority Date/Time Associated Diagnosis Comme nts MAMMO SCREENING CAD Routine 11/10/2016 11:43 AM Encounter for Results for this AND MATIAS BILATERAL EDT screening mammogram pr ocedure are in for malignant the results neoplasm of breast section. documented in this encounter Results Mammo Screen CAD and Matias Bilat (Generic) (11/10/2016 11:43 AM EDT) Anatomical Region Laterality Modality Breast Bilateral Mammography Specimen (Source) Anatomical Location Collection Method / Collectio n Time Received Time / Laterality Volume Narrative 11/10/2016 2:28 PM EDT BILATERAL MAMMOGRAPHY REASON FOR EXAM: 80-year-old female, his tory of breast cancer, and right lumpectomy. TECHNIQUE: CC and MLO views were obtaine d of each breast using standard 2-D mammography as well as 3-D tomosynthesis . Computer aided detection was used. Comparison: This is compared with prior images. FINDINGS: There are scattered areas of f ibroglandular density. There are no suspicious microcalcifications, masses, or areas of distortion. The pattern is stable. Stable right breast postsurgical change, fat necrosis, and stable benign-appearing masses. CONCLUSION: No mammographic evidence of malignancy. RECOMMENDATION: Routine screening. A result letter has been sent to this pa tient by the [facility]. BIRADS CATEGORY 2: Benign findings. * ??The [place] [employer] an d The Society of Breast Imaging recommend annual screening beginning at age 40 for the general female population. * ??Screening should continue as long as a woman is in good health and is expected to live 10 more years or longer . * ??All women should be familiar with th e known benefits, limitations, and potential harms linked to breast cancer screening. They also should know how their breasts normally look and feel and report any breast changes to a health care provider right away. * ??Some women, because of their family history, a genetic tendency, or certain other factors, should be screened with M RIs along with mammograms. (The number of women who fall into this category is very small.) The patient and health care provider should discuss the patient hist ory and decide if earlier screening and breast MRI are appropriate. Yao Feliciano MD IMG MAMMO ORDERABLES documented in this encounter Visit Diagnoses Diagnosis Encounter for screening mammogram for ma lignant neoplasm of breast Other screening mammogram documented in this encounter Care Teams Wildland Fire Fighter Specialist Relationship Specialty Start Date End Date Matt Mcdonnell DO PCP - General 11/15/12 11/29/19 [address] [place] [address] documented as of this encounter
--- OUTSIDE RECORDS SUMMARY | 2022-04-03 12:32 | XMS_ITS | Encounter Summary ---
:1935 Author Organization [facility] [place] [address] Care Team Providers Name Role Phone Matt Mcdonnell DO Primary Care Provider Encounter Details Date Type Department Care Team Description 12/30/2016 Telephone Hematology/Oncology at Sudeep Bonilla [place] [phone] Social History Tobacco Use Types Packs/Day [...] this encounter Miscellaneous Notes Telephone Encounter - Sudeep Ch - 12/30/2016 3:37 PM EDT Called and left a msg for the pt regarind apt change due to an urgent new pt. Moved apt from 01/01 to 01/07 with Kayleen Ghosh. Told pt to call if this was a problem. documented in this encounter Plan of Treatment Upcoming Encounters Date Type Specialty Care Team Description 04/06/2022 Appointment Pulmonology 04/06/2022 Office Visit Pulmonology Matt Watson MD [facility] ER PULMONARY [place] Patel [place], [place] [address] (Wo rk) documented as of this encounter Visit Diagnoses Not on filedocumented in this encounter Care Teams Heel Varnisher Relationship Specialty Start Date End Date Matt Mcdonnell DO PCP - General 11/15/12 11/29/19 [address] [place] [address] documented as of this encounter
--- OUTSIDE RECORDS SUMMARY | 2022-04-03 12:32 | XMS_ITS | Encounter Summary ---
:1935 Author Organization [facility] [place] [address] Care Team Providers Name Role Phone Matt Mcdonnell DO Primary Care Provider Encounter Details Date Type Department Care Team Description 04/03/2016 Orders Only Hematology Oncology at Marilia Jay C hronic ITP [facility] RN ([address] thrombocytopenia) [place] [address] Social History Tobacco Use Types [...] 04/06/2022 Office Visit Pulmonology Matt Watson MD [facility] PULMONARY [place] Pat[place], [place] [address] (Wo rk) documented as of this encounter Visit Diagnoses Diagnosis 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
--- OUTSIDE RECORDS SUMMARY | 2022-04-03 12:33 | XMS_ITS | Encounter Summary ---
:1935 Author Organization [place] [address] Care Team Providers Name Role Phone FritzMatt hollins Primary Care Provider Encounter Details Date Type Department Care Team Description 05/15/2014 Orders Only Hematology Oncology LEONEL Nj (idi opathic at [facility] Daija Stratton RN thrombocytopenic purpura) [address] [place] [phone] Social History Tobacco Use Types Packs/Day Years [...] documented as of this encounter Progress Notes Daija Nj RN - 05/15/2014 3:55 PM EST Received labs from [facility] plts 26k. Dr. Feliciano notified. Would like Barbara to take Dexamethasone 40mg x 4 days. Call to patient with these results and instructions. Rx sent to [facility] in [place]. Patient is doing well with no concerns. Barbara has an appt with Dr. Feliciano on Friday 05/18. documented in this encounter Plan of Treatment Upcoming Encounters Date Type Specialty Care Team Description 04/06/2022 Appointment Pulmonology 04/06/2022 Office Visit Pulmonology Matt Watson MD [facility] ER DR ANEESH TOMPKINS [place], [place] [address] (Wo rk) documented as of this encounter Visit Diagnoses Diagnosis ITP (idiopathic thrombocytopenic purpura ) Immune thrombocytopenic purpura documented in this encounter Care Teams Import Clerk Relationship Specialty Start Date End Date Matt Mcdonnell DO PCP - General 11/15/12 11/29/19 [address] [place] [address] documented as of this encounter
--- OUTSIDE RECORDS SUMMARY | 2022-04-03 12:33 | XMS_ITS | Encounter Summary ---
:1935 Author Organization [facility] [place] [address] Care Team Providers Name Role Phone FritzMatt hollins Martha KHAN Primary Care Provider Encounter Details Date Type Department Care Team Description 03/23/2014 [facility] [facility] [address] [place] [phone] Social History Tobacco Use Types Packs/Day [...] this encounter Miscellaneous Notes Telephone Encounter - Daija Nj RN - 03/23/2014 4:15 PM EDT Call returned from patient - she is doing well. Reviewed her labs with her. Plan labs in 4 weeks. Telephone Encounter - Daija Nj RN - 03/23/2014 2:36 PM EDT Received labs from [facility] - plts on 03/20 are 52k. Stable compared with labs from one month ago. Reviewed with Dr. Feliciano - no further intervention needed. Labs in one month. Patient called - left message to call clinic. documented in this encounter Plan of Treatment Upcoming Encounters Date Type Specialty Care Team Description 04/06/2022 Appointment Pulmonology 04/06/2022 Office Visit Pulmonology Matt Watson MD [facility] ER PULMONARY TUR[place] Patel [place], [place] [address] (Wo rk) documented as of this encounter Visit Diagnoses Not on filedocumented in this encounter Care Teams Car Barn Laborer Relationship Specialty Start Date End Date Matt Mcdonnell DO PCP - General 11/15/12 11/29/19 [address] [place] [address] documented as of this encounter
--- OUTSIDE RECORDS SUMMARY | 2022-04-03 12:33 | XMS_ITS | Encounter Summary ---
:1935 [place] [address] Care Team Providers Name Role Phone Matt Mcdonnell Primary Care Provider Reason for Visit Auth/Cert - Closed Specialty Diagnoses / Procedures Referred By Contact Refer red To Contact Diagnoses S/P V-FIB ARREST STEMI Procedures CARDIAC CATHETERIZATION Referral ID Status Reason Start Date Expiration Date Visits Requ ested Visits Authorized [id number] Closed 1 1 Encounter Details Date Type Department Care Team Description 04/23/2015 Surgery Animal Behaviourist Pedro Luis Calabrese MD [facility] Dick manuel [place] [address] [place] [address] [phone] (Wo rk) Social History Tobacco Use Types [...] Sign Reading Time Taken Comments Blood Pressure 151/66 04/26/2015 4:07 PM EST Pulse 68 04/26/2015 4:07 PM EST Temperature 36.3 ??C (97.3 ??F) 04/26/2015 4:07 PM EST Respiratory Rate 20 04/26/2015 4:07 PM EST Oxygen Saturation 95% 04/26/2015 4:07 PM EST Inhaled Oxygen Concentration - - Weight 84.5 kg (186 lb 4.6 oz) 04/26/2015 6:34 AM EST Height 147.3 cm (4' 10) 04/23/2015 4:45 PM EST Body Mass Index 38.93 04/23/2015 4:45 PM EST documented in this encounter Discharge Summaries Dulce Alvarado - 04/23/2015 4:21 PM EST Discharge Summary Patient Name: Barbara Casarez Patient Age: 79 y.o. Language: Setswana Race: White Ethnicity: Not nor Admit date: 04/23/2015 Discharge date and time: 04/26/2015 3:35 PM Attending Physician: Pedro Luis Ghosh MD Discharge Physician: DULCE ALVARADO MD Patient ID: 79 y/o woman with hx of ITP (treated with steroids and rituxan) as well as breast ca (s/p XRT, now on letrozole) who presented with CP and subsequently developed a v fib arrest (successfully resuscitated at OSH) found to have ST elevations in the anterior leads, transferred to and now s/p PCI to a mid LAD lesion with placement of a MAYANK, now with an EF of 56% with apical hypokinesis. Follow-up Recommendations for Providers: #New Medications: -aspirin -plavix -lipitor -lisinopril -metoprolol #DAP in setting of ITP -Needs plavix for 1y -Started on asa 81 for now, however will leave risk/benefit up to Dr. Feliciano's discretion given her ITP (well managed on rituxan) #Depressed EF -Recommend rechecking an echo in 3-6 months to assess recovery of EF (possible stress CM vs myocardial stunning) Inpatient Provider Contact Information: For questions regarding this document or issues relating to this hospitalization on the Medical Service, please contact your inpatient physician through the [facility] Nitroglycerin Supervisor . Issues after hours and on weekends will be handled by the Hospitalist staff on-call. Discharge Diagnoses (Hospital Problems) and Secondary Diagnoses (Chronic Problems): Active Hospital Problems Diagnosis ??? ST elevation (STEMI) myocardial infarction involving left anterior descending coronary artery ??? Acute systolic congestive heart failure ??? PAF (paroxysmal atrial fibrillation) Resolved Hospital Problems Diagnosis Date Resolved No resolved problems to display. Active Non-Hospital Problems Diagnosis ??? ITP (idiopathic thrombocytopenic purpura) ??? Breast cancer Operations/Major Procedures: Operations: Cardiac Cath (04/23/2015) Other Major Procedures: TTE ID: [id number] YOF with HTN, Stage 1 Breast CA, and ITP presented from OSH as a STEMI alert after a Vfib arrest. Pt received eip x1 and defibrillation x 1, lytics, aspirin/plavix were started. Pt achieved ROSCand was transferred here. En route, pt had evolving STEMI and was found to have LAD lesion in bean sprout laborer. History of Presentation: Pt is a 79 YO with PMH of stage 1 Breast CA, ITP controlled with Steroids and Rituxan, HTN who presented from [facility] as a STEMI alert. Pt was at OSH for CP that began Wednesday. Came to [facility] today at 0645 am. Initial EKG did not show any obvious signs of ischemia. Trop .87. Pt was was going to treated and transferred here for NSTEMI but had Vfib arrest at 1045 req 1 round of epi and shock. She achieved ROSC and good mentation so hypothermia protocol was not initiated. VS: HR 100-130 BP169/70, Sat 96% on 2L NC. EKG on repeat showed ST elevations in V2-V4 in I and AVL with reciprocal changes in inferior leads. CXR showed no PTX or fx. Pt was given full dose lytics, aspirin, plavix 75 and heparin 4k and DHART to bean sprout laborer. Hospital Course: #V fib arrest and STEMI Pt was emergently transferred to the bean sprout laborer and was found to have an 85% stenotic lesion of her LAD. PCI was performed and a MAYANK was placed in the mid LAD with restorationg of flow. Left ventricular end diastolic pressure was elevated to 30, so she was diuresed initially. She felt well after the procedure (other than mild persistent msk chest pain from the chest compressions). She suffered no further electrical or mechanical complications from her UT, and was started on lisinopril, metoprolol, plavix, aspirin and lipitor. She was diuresed while in house, however she was oxygenating well while ambulating at time of discharge with no diuretics, so she will not be discharged with any. She has follow up with her bias machine operator helper scheduled in a few weeks already, so will leave further diuresis to his discretion. Will discharge home with cardiac rehab at this time. #ITP Well controlled on rituxan. She needs plavix for 1 year, and would recommend asa81 for her ASCVD, however will defer to Dr. Feliciano (her retail operations manager) with regards to continuing aspirin. #HTN Took her off of her old antihypertensives as she is well controlled on her new regimen. Vital Signs at Discharge: BP: 133/54 mmHg, Heart Rate: 68, Temp: 36.5 ??C (97.7 ??F), Resp: 20, BMI (Calculated): 39.2 Height: (!) 147.3 cm (4' 10) (04/23/15 1645) Weight - Scale: 84.5 kg (186 lb 4.6 oz) (04/26/15 0634) Functional and Cognitive Status: Functionally and cognitively intact, no concerns. Important Studies and Lab Data: Labs: Recent Labs 04/25/15 0804/24/15 0815 04/23/15 1617 WBC 11.1* 13.1* 13.2* HGB 12.3 12.8 12.7 PLATELET 59* 65* 82* Recent Labs 04/25/15 0804/24/15 0815 04/23/15 2130 04/23/15 1617 NA 144 145 -- 140 K 4.0 4.0 4.2 4.1 3.3* CL 105 105 -- 104 CO2 -- 24 BUN 27* 20* -- 14 CREATININE 1.21* 1.35* -- 0.81 Recent Labs 04/25/15 0803 04/24/15 0815 04/23/15 1617 CALCIUM 8.3* 8.5 8.0* MAGNESIUM 0.79 -- 0.71 PHOS -- -- 2.8 Recent Labs 04/23/15 1617 AST 54* 55* ALT 17 16 ALKPHOS 59 61 BILITOT 0.7 0.6 BILIDIR 0.1 0.2 Recent Labs 04/24/15 0330 04/23/15 2130 04/23/15 1617 TROPONINT 4.63* 6.43* 0.92* CK 976* 1448* 414* No results for input(s): PHART, LOT4RUQ, PO2ART, IKV7CKV in the last 168 hours. Studies: Cath (04/23/2015) History Barbara Casarez is a 79 year old woman. She has hypertension. The patient has a history of chest pain. She has a history of atrial fibrillation/atrial flutter, ventricular tachycardia/ventricular fibrillation and a cardiac arrest. The patient has a history of cancer. She also has a history of an abnormal EKG. Prior to the initiation of this procedure, the patient was designated as ASA Class IV. Patient Status at Catheterization: The patient presented with: ST-Elevation UT (STEMI) or equivalent (w/i 7 days). [place] [employer] angina class was IV. This patient received full dose lytics. This patient was on beta blockers and calcium kathryn blockers prior to the procedure. No stress or imaging studies were performed prior to this procedure Technique: A 6Fr sheath was inserted in the right femoral artery utilizing the Seldinger technique. The left coronary artery was injected utilizing a 6Fr EBU 3.5 catheter. A 6Fr JR 4 catheter was used to inject the right coronary artery. Left ventricular pressure was performed with a 6Fr Angled pigtail catheter. Coronary stent insertion was performed and the equipment utilized will be described in the intervention summary section. 7,000 units of heparin were administered. A total of 200cc of Omnipaque were opened, 130cc of Omnipaque were administered and 70cc of Omnipaque were wasted. Radiation: Fluoro time was 10.4 minutes, dose area product was 72,017 mGYcm2 and air kerma was 1,436 mGY. The patient received the following medications prior to and during the procedure: Clopidogrel, Unfractionated Heparin (any) and Lytic (any). Hemodynamics: Left Heart Pressures Resting: Syst Diast EDP a v m Ao 114 71 91 LV 93 32 Comments: LV pullback: LV 94, EDP 33. Ao 95/50 (70). Coronary Angiography: Dominance: Right Left Main The left main was normal. Left Anterior Descending There was an 85% eccentric long segmental stenosis of the mid segment of the left anterior descending artery (LAD). The LAD was large. There was mild diffuse disease of the entire vessel segment of the first diagonal branch (Diagonal 1) of the LAD. The Diagonal 1 was small. As a consequence of the catheterization/intervention procedures, a single discrete total occlusion developed in the ostial segment of the second diagonal branch (Diagonal 2) of the LAD. Left Circumflex The left circumflex (LCX) was normal. Right Coronary Artery There was mild diffuse disease of the mid segment of the right coronary artery (RCA). The RCA was large. Indication for Intervention: Coronary intervention was indicated for primary therapy for an acute myocardial infarction. Left Ventricular Ejection fraction was not assessed. The priority for the procedure was Emergent. The NCDR indication for the procedure was STEMI (Stable after successful full-dose Thrombolysis). Intervention Summary: Left Anterior Descending Artery Mid 85% Stent insertion was performed on the 85% stenosis in the mid segment of the LAD. This was a de davidson lesion. According to the ACC/AHA classification system, this lesion was a type B2 high risk lesion. Primary prevention of restenosis was the indication for stent insertion. This was the culprit lesion. Vessel flow pre intervention was LUCIEN 3. Stent insertion was accomplished through a 6 Fr. EBU 3.5 guide. The lesion was predilated with a 2.00mm TREK 20 MM balloon with a maximum inflation pressure of 18 atmospheres. A premounted 3.00 x 33 mm Xience Alpine (MAYANK) was deployed with a maximum inflation pressure of 18 atmospheres. Following stent deployment, the lesion was dilated using a 3.50mm NC TREK 15 MM balloon with a maximum inflation pressure of 18 atmospheres. The final outcome was defined as successful. A coronary arteriolar vasodilator was administered as part of the intervention on this lesion. There was no residual stenosis following this intervention. The final LUCIEN flow was 3. Events included no reflow. Vascular Access: Vascular Access Angiogram: A selective angiogram at the right femoral artery revealed no significant obstructive disease. Vascular Access Management: A 6 Fr Perclose was deployed at the right femoral artery access site. Conclusions: * One vessel coronary artery disease (LAD) * Elevated left ventricular end diastolic pressure * Successful stent insertion of the mid LAD lesion * Drug eluting stent (MAYANK) implanted. CXR (04/23/2015): FINDINGS: There has been interval development of predominantly perihilar and right basilar opacity. Opacities extending to the apices bilaterally are noted. Pulmonary vascularity is somewhat indistinct. Trace blunting of the right costophrenic angle may be artifact versus trace effusion. The heart is borderline enlarged as before with aortic arch vascular calcifications. There is no pneumoperitoneum present and no interval osseous findings are seen. IMPRESSION: Interval development of hazy predominantly perihilar and right basilar opacity which may reflect developing edema. Superimposed infection/inflammation cannot be entirely excluded based on this radiographic appearance. Echo (04/24/2015): 1. The left ventricular chamber size is normal. The quantitative left ventricular ejection fraction by biplane Gonzalez's method is 56% with hypokinesis of the apical segments and akinesis of the cap with no evidence of mural thrombus. 2. Right ventricular chamber size, wall thickness, and systolic function are within normal limits. The estimated pulmonary artery systolic pressure is normal at 32 mmHg. 3. The cardiac valves appear structurally and functionally normal. 4. The pericardium appears normal and there is no evidence of a pericardial effusion. Pending Studies and Lab Data: None Discharge Conditions/Prognosis: good Discharge to: home Updated [...] multivitamin (THERAGRAN) tablet New Medications Dose Details aspirin 81 mg Chew Take 81 mg by mouth daily. 81 mg Quantity: 30 tablet Refills: 3 atorvastatin 80 mg Tab Commonly known as: LIPITOR Take 1 tablet by mouth every evening. 80 mg Quantity: 30 tablet Refills: 3 clopidogrel 75 mg Tab Commonly known as: PLAVIX Take 1 tablet by mouth daily. 75 mg Quantity: 30 tablet Refills: 11 lisinopril 5 mg Tab Commonly known as: PRINIVIL;ZESTRIL Take 1 tablet by mouth daily. 5 mg Quantity: 30 tablet Refills: 11 meTOPROLOL succinate 50 mg Tablet sr Commonly known as: TOPROL-XL Take 1 tablet by mouth daily. 50 mg Quantity: 30 tablet Refills: 12 nitroGLYcerin 0.4 mg Subl Commonly known as: NITROSTAT Place 1 tablet under the tongue every 5 minutes as needed for Chest pain. 0.4 mg Quantity: 90 tablet Refills: 12 Continued medications, unchanged Dose Details acetaminophen 325 mg Tab Commonly known as: TYLENOL Take 2 tablets by mouth every 4 hours as needed for Pain. 650 mg Quantity: 30 tablet Refills: 1 CALCIUM 600 WITH VITAMIN D3 ORAL Refills: 0 letrozole 2.5 mg Tab Commonly known as: FEMARA Take 1 tablet by mouth daily. 2.5 mg Quantity: 90 tablet Refills: 3 multivitamin Tab Commonly known as: THERAGRAN Refills: 0 nystatin 100,000 unit/mL Susp Commonly known as: MYCOSTATIN Take 5 mLs by mouth 4 times daily. [id number] Units Quantity: 180 mL Refills: 0 STOPPED Medications DILTiazem 240 mg Cp24 Commonly known as: CARDIZEM CD doxazosin 2 mg Tab Commonly known as: CARDURA hydrochlorothiazide 25 mg Tab Commonly known as: HYDRODIURIL ZIAC 10-6.25 mg Tab Generic drug: bisoprolol-hydrochlorothiazide Smoking Status at Discharge: History Smoking status ??? Never Smoker Smokeless tobacco ??? Not on file Instructions Given to Patient at Discharge: Patient Instructions Why you were hospitalized: You were admitted with signs and symptoms indicative of a heart attack ora myocardial infarction. Call your doctor or report to the nearest Emergency Department: if you have chest pain or pressure or symptoms similar or worse to that which initially brought you in to the hospital. If you begin sweating for no reason, have nausea/vomiting, headaches, blurred vision, lightheadedness/ fainting spells, or bleeding from the access site please call your doctor and/or call EMS. Activity: If you are very physically active, then take it easy for the next month, until you are seen in cardiology follow up or given permission by your primary care doctor. It will take time for yourheart to recover, so while cardiovascular activity is highly encouraged, over working the heart too soon can be dangerous. Also do not do any heavy lifting for the next 7-10 days, as we accessed your heart via the high pressure femoral artery. We do not want you to begin bleeding. If you do so, apply much pressure and report to the nearest emergency department. Driving: Please refrain from driving for 48 hours after your procedure, as the access site is an area of high pressure and abrupt automobile accident can result in excessive bleeding. Also, it would bedifficult to place pressure at the catheterization site if it began to bleed as you were driving. Diet: heart healthy diet including low carbohydrates/refined sugars, and much vegetables, fruits, lean protein and whole grains. Bathing: Showers are ok. Do not submerge your wound into a bath or hot tub for about 7-10 days in order to prevent infection. Sexual activity: You should refrain from sexual activity for 1 month following a heart attack. Wound care: since your femoral artery is in an area of high pressure, if it begins to bleed at all, please place a lot of pressure on this and report to the nearest emergency department. The importance of your medications: 1. Metoprolol, a beta omar, lowers your heart rate and blood pressure and is known to decrease mortality rates in the acute post-heart attack setting. 2. Lisinopril, an GENE inhibitor, lowers your blood pressure, is anti- inflammatory, and prevents remodeling and dilation of the angulo of your heart. 3. Atorvastatin, a statin, is a lipid-lowering drug. It is also anti- inflammatory and studies show intensive lipid lowering therapy decreases the rate of myocardial events after a heart attack. 4. Aspirin, an anti-platelet drug, is protective against future thrombus formation, especially in the stent. 5. Plavix or clopidogrel, is also an anti-platelet drug, is protective against future thrombus formation, especially in the stent. 6. Sublingual Nitroglycerine, an anti-anginal medication, is to be used only if you have recurrent chest pain; if you use this med, SEEK MEDICAL ATTENTION. Also, only take this medication while sittingdown FOLLOW-UP APPOINTMENTS: Grinder Set Up Operator Internal: You have an appointment that was previously scheduled with your bias machine operator helper on May 13 Follow-up Appointments Future Appointments Date Time Provider Department Center 07/19/2015 1:30 PM Yao Feliciano MD [facility] General Instructions None Future Appointments and Orders Future Appointments Provider Department Dept Phone 07/19/2015 1:30 PM Yao Feliciano MD Hematology/Oncology [phone] Future Orders Complete By Expires Referral to Cardiac Rehab [[id number] Custom] As directed Process Instructions: If no progress note charted, please enter Clinical details in comments. Scheduling Instructions: Questions: My question or request is: STEMI, cardiac rehab @ [facility] Discharge References/Attachments None documented in this encounter Discharge Instructions Patient InstructionsDulce Alvarado - 04/26/2015 2:40 PM EST Why you were hospitalized: You were admitted with signs and symptoms indicative of a heart attack ora myocardial infarction. Call your doctor or report to the nearest Emergency Department: if you have chest pain or pressure or symptoms similar or worse to that which initially brought you in to the hospital. If you begin sweating for no reason, have nausea/vomiting, headaches, blurred vision, lightheadedness/ fainting spells, or bleeding from the access site please call your doctor and/or call EMS. Activity: If you are very physically active, then take it easy for the next month, until you are seen in cardiology follow up or given permission by your primary care doctor. It will take time for yourheart to recover, so while cardiovascular activity is highly encouraged, over working the heart too soon can be dangerous. Also do not do any heavy lifting for the next 7-10 days, as we accessed your heart via the high pressure femoral artery. We do not want you to begin bleeding. If you do so, apply much pressure and report to the nearest emergency department. Driving: Please refrain from driving for 48 hours after your procedure, as the access site is an area of high pressure and abrupt automobile accident can result in excessive bleeding. Also, it would bedifficult to place pressure at the catheterization site if it began to bleed as you were driving. Diet: heart healthy diet including low carbohydrates/refined sugars, and much vegetables, fruits, lean protein and whole grains. Bathing: Showers are ok. Do not submerge your wound into a bath or hot tub for about 7-10 days in order to prevent infection. Sexual activity: You should refrain from sexual activity for 1 month following a heart attack. Wound care: since your femoral artery is in an area of high pressure, if it begins to bleed at all, please place a lot of pressure on this and report to the nearest emergency department. The importance of your medications: 1. Metoprolol, a beta omar, lowers your heart rate and blood pressure and is known to decrease mortality rates in the acute post-heart attack setting. 2. Lisinopril, an GENE inhibitor, lowers your blood pressure, is anti- inflammatory, and prevents remodeling and dilation of the angulo of your heart. 3. Atorvastatin, a statin, is a lipid-lowering drug. It is also anti- inflammatory and studies show intensive lipid lowering therapy decreases the rate of myocardial events after a heart attack. 4. Aspirin, an anti-platelet drug, is protective against future thrombus formation, especially in the stent. 5. Plavix or clopidogrel, is also an anti-platelet drug, is protective against future thrombus formation, especially in the stent. 6. Sublingual Nitroglycerine, an anti-anginal medication, is to be used only if you have recurrent chest pain; if you use this med, SEEK MEDICAL ATTENTION. Also, only take this medication while sittingdown FOLLOW-UP APPOINTMENTS: Grinder Set Up Operator Internal: You have an appointment that was previously scheduled with your bias machine operator helper on May 13 Follow-up Appointments Future Appointments Date Time Provider Department Center 07/19/2015 1:30 PM Yao Feliciano MD [facility] AttachmentsThe following attachments cannot be sent through Care Everywhere.PCI (PERCUTANEOUS CORONARY INTERVENTION) : POST-OP (MOSOTHO)documented in this encounter Medications at Time of Discharge Medication Sig Dispensed Refills Start Date End Date atorvastatin (LIPITOR) 80 Take 1 tablet by 30 tablet 3 04/01 mg Tablet mouth every evening. nitroGLYcerin (NITROSTAT) Place 1 tablet 90 tablet 12 2014 0.4 mg Tablet, Sublingual under the tongue every 5 minutes as needed for Chest pain. CALCIUM CARBONATE/VITAMIN 0 02/25/2010 D3 (CALCIUM 600 WITH VITAMIN D3 ORAL) multivitamin (THERAGRAN) 0 02/25/2010 tablet aspirin 81 mg Tablet, Take 81 mg by 30 tablet 3 04/26/2015 04/15/2018 Chewable mouth daily. clopidogrel (PLAVIX) 75 mg Take 1 tablet by 30 tablet 11 06/04/2016 Tablet mouth daily. lisinopril Take 1 tablet by 30 tablet 11 04/26/2015 06/04/19 17 (PRINIVIL;ZESTRIL) 5 mg mouth daily. Tablet meTOPROLOL succinate Take 1 tablet by 30 tablet 12 5 06/04/2016 (TOPROL-XL) 50 mg Tablet mouth daily. Sustained Release 24 hr letrozole (FEMARA) 2.5 mg Take 1 tablet by 90 tablet 3 03/3104/14/2016 TabletIndications: Breast mouth daily. cancer, unspecified laterality nystatin (MYCOSTATIN) Take 5 mLs by 180 mL 0 09/24/2014 07/19/2015 100,000 unit/mL mouth 4 times SuspensionIndications: ITP daily. (idiopathic thrombocytopenic purpura), Thrush acetaminophen (TYLENOL) 325 Take 2 tablets by 30 tablet 1 0 01/05/2013 06/04/2016 mg tablet mouth every 4 hours as needed for Pain. documented as of this encounter Progress Notes Pedro Luis Ghosh MD - 04/26/2015 3:39 PM EST The patient was seen and examined on rounds. Vital signs were stable, a thorough physical exam was conducted, and the patients most recent lab values were reviewed. Last value Range last 24 hrs Temperature Temp: 36.5 ??C (97.7 ??F) Temp: [36.5 ??C (97.7 ??F)-37 ??C (98.6 ??F)] Heart Rate Heart Rate: 68 Heart Rate: [57-115] Blood Pressure BP: 133/54 mmHg BP: (102-133)/(36-76) Respiratory Rate Resp: 20 Resp: [18-20] SpO2 SpO2: 97 % SpO2: [92 %-98 %] Physical Exam Filed Vitals: 04/26/15 1342 BP: 133/54 Pulse: 68 Temp: Resp: Gen:AAOX3, pleasant and in NAD Pulm: Normal respiratory effort, Lungs CTAB CV: RRR, s1 s2 normal, no m/r/g Abd: soft, NT, ND, NABS throughout, no hepatosplenomegally Ext: no edema, no clubbing, no cyanosis. DP pulses equal and full b/l. Neuro: no focal deficits grossly noted. A/P Medications were reviewed, and a discharge plan was finalized. IV access was removed, and the patient was provided with educational material prior to discharge. The patient was discharged in stable condition. Please see the discharge summary of today's date for complete assessment and plan Cardiology Staff Note: I have interviewed and examined this patient, reviewed our findings and recommendations with her Garima agree with Dr. Alvarado's note. Discharge > 30 minutes Elza Schaffer RN - 04/26/2015 11:41 AM EST Record reviewed and patient discussed with multidisciplinary team. Met with patient in her room. No discharge needs identified at this time. Cover Stripper remains available as needed for coordination ofcare and discharge planning. Anticipate discharge home today.An Important Message From Medicare about Your Rights letter reviewed with pt and pt signed acknowledgment and was provided copy. Elza Pride RN, BSN Cover Stripper [place] Pager #[phone] Luciana Dennis RN - 04/25/2015 11:58 AM EST 12:00 Gathered ambulatory O2 Sats with pt on RA. On first lap around the unit, O2 sats stayed at baseline (92-95%). On second lap around the unit, O2 sats dropped, ranging between 83-89%. When encourage to pause and take a few deep breaths sats ranged between 88-92%. After 5 minutes at rest, O2 sats returned to 95%. 18:30 Walked pt 1.5 loops. Pt desated to 90 on RA with multiple resting periods. Reports sob. Resolved with rest. MD team notified. Plans to assess pt. Joseph Munoz MD - 04/25/2015 7:06 AM EST Cardiology Progress Note 04/25/2015 10:44 AM ID: Barbara Casarez is a 79 y.o. with HTN, Stage 1 Breast CA, and ITP presented from OSH as a STEMI alert after a Vfib arrest. Pt received eip x1 and defibrillation x 1, lytics, aspirin/plavix were started. Pt achieved ROSC and was transferred here. En route, pt had evolving STEMI and was found to have LAD lesion in bean sprout laborer. 24 Hour Events: MSK pain from chest compressions -2.5 lisinopril [id number] -40 IV lasix at 8pm and at 5 am (refused before that time) -I/o: -1820 ROS: Denies palpitations, PND, Orthopnea, dizziness/LH, LE swelling or pain, n/v, abd pain Telemetry: Rare PVCs, rare PACs Medications: See MAR list I/O: Intake/Output Summary (Last 24 hours) at 04/25/15 1044 Last data filed at 04/25/15 0755 Gross per 24 hour Intake 445 ml Output 1875 ml Net -1430 ml Admission Wt: 85 kg Physical Exam: Last value Range last 24 hrs Temperature Temp: 36.6 ??C (97.9 ??F) Temp: [36.4 ??C (97.5 ??F)-37 ??C (98.6 ??F)] Heart Rate Heart Rate: 76 Heart Rate: [71-82] Blood Pressure BP: 107/45 mmHg BP: (98-144)/(40-60) Respiratory Rate Resp: 20 Resp: [16-20] SpO2 SpO2: 92 % on 2L SpO2: [90 %-95 %] Gen: Conversing appropriately HEENT: PERRL, sclerae anicteric, MMM, +conjunctival pallor Neck: JVP 8 cm CV: NSR, but no m/g/r noted Resp: CTA/B, no w/r/r Abd: Soft, ND, no hepatosplenomegaly appreciated Ext: 1+ edema in BLE Skin: No rashes, wounds. Radial site with no hematoma Labs: Recent Labs 04/25/15 0803 04/24/15 0815 04/23/15 1617 WBC 11.1* 13.1* 13.2* HGB 12.3 12.8 12.7 HCT 36.4 38.9 37.9 PLATELET 59* 65* 82* Recent Labs 04/25/15 0803 04/24/15 0815 04/23/15 1617 MCV 89.9 88.4 87.3 Recent Labs 04/25/15 0803 04/24/15 0815 04/23/15 2130 04/23/15 1617 NA 144 145 -- 140 K 4.0 4.0 4.2 4.1 3.3* CL 105 105 -- 104 CO2 26 27 -- 24 BUN 27* 20* -- 14 CREATININE 1.21* 1.35* -- 0.81 Recent Labs 04/25/15 0803 04/24/15 0815 04/23/15 1617 CALCIUM 8.3* 8.5 8.0* MAGNESIUM 0.79 -- 0.71 PHOS -- -- 2.8 Recent Labs 04/23/15 1617 BILITOT 0.7 0.6 BILIDIR 0.1 0.2 AST 54* 55* ALT 17 16 ALKPHOS 59 61 Recent Labs 04/23/15 1617 INR 1.4* PTT >160.0* Recent Labs 04/24/15 0330 04/23/15 2130 04/23/15 1617 CK 976* 1448* 414* TROPONINT 4.63* 6.43* 0.92* Urine Analysis: No results found for: SPGRAVITYUA, PHUADIP, PROTEINUADIP, GLUCOSEU, KETONESUA, UROBILIUADIP, BLOODUADIP, NITRATEUA, LEUKOESTERUA, WBCUA, BILIRUBINUA Microbiology: BCx: None UCx: None Pertinent radiology/diagnostic studies: 04/24/2015 Echo: 1. The left ventricular chamber size is normal. The quantitative left ventricular ejection fraction by biplane Gonzalez's method is 56% with hypokinesis of the apical segments and akinesis of the cap with no evidence of mural thrombus. 2. Right ventricular chamber size, wall thickness, and systolic function are within normal limits. The estimated pulmonary artery systolic pressure is normal at 32 mmHg. 3. The cardiac valves appear structurally and functionally normal. 4. The pericardium appears normal and there is no evidence of a pericardial effusion. CXR (04/23/2015): There has been interval development of predominantly perihilar and right basilar opacity. Opacities extending to the apices bilaterally are noted. Pulmonary vascularity is somewhat indistinct. Trace blunting of the right costophrenic angle may be artifact versus trace effusion. The heart is borderline enlarged as before with aortic arch vascular calcifications. There is no pneumoperitoneum present and no interval osseous findings are seen. IMPRESSION: Interval development of hazy predominantly perihilar and right basilar opacity which may reflect developing edema. Superimposed infection/inflammation cannot be entirely excluded based on this radiographic appearance. Cath 04/23/2015: The patient's medical regimen was changed as follows: Drug eluting stent (MAYANK) implanted. 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 Continue ASA 81 mg po daily, clopidogrel 75 mg po daily x 12 months. Furosemide 20 mg IV given for LVEDP of 32 mmHg. TREATMENT PLAN: #STEMI -LAD lesion stented in bean sprout laborer -Aspirin, plavix, atorvastatin 80, BB (hold if SBP <90 or HR <60), ACEI 2.5 -Lasix got IV 120 overnight, will watch and re-assess today -Echo: EF 56% #ITP -Plts 59 here -Currently stable, will continue to monitor #HTN -Will address post-cath -See # STEMI -uptitrate BB, ACEI as tolerated, goal is HR 60 SBP 120 #Breast CA -Stage 1 breast CA - cont'd home Femara 2.5mg daily #Other PT/OT consulted Diet: Cardiac DVT ppx: SCDs Dispo: likely home tomorrow Provider: DAYANNA PAIGE MD Provider #: [id number] STAFF ADDENDUM Patient interviewed and examined. Medical record reviewed. I agree with the Intercurrent History Past Medical History Physical Exam Objective Data Assessment and Plan as detailed by Dr. Paige, with whom the patient was interviewed, examined, and discussed, with thefollowing additions and/or exceptions. No recurrence of chest pains/pressures. No complaints of SOB.Tolerating medications. VSS. Lungs clear. Telemetry benign. Ambulating around the unit. Should be seen by [facility]. Safe for discharge with outpatient follow-up. Shira Lopez, PT - 04/24/2015 3:03 PM EST PT referral received. Chart reviewed. Pt up walking with cardiac rehab and wanted to wait on PT. Will follow up at a later date. Shira Lopez, PT Pager [phone] Jackie Escamilla OT - 04/24/2015 2:19 PM EST OT Note OT consult received. EDH reviewed. Pt presents s/p vfib arrest for STEMI now s/p bean sprout laborer for LAD stent. Pt has been ambulating with nursing and managing her ADL's in the room. Pt had just finished mobilizing with cardiac rehab and requested to rest for a little while. 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 Do not anticipate deficits, but will check back with pt prior to d/c,which pt anticipated would be Wednesday. Jackie Escamilla OTR/L Pager: [phone] Joseph Dailey MD - 04/24/2015 5:08 AM EST Cardiology Progress Note 04/24/2015 7:58 AM ID: Barbara Casarez is a 79 y.o. with HTN, Stage 1 Breast CA, and ITP presented from OSH as a STEMI alert after a Vfib arrest. Pt received eip x1 and defibrillation x 1, lytics, aspirin/plavix were started. Pt achieved ROSC and was transferred here. En route, pt had evolving STEMI and was found to have LAD lesion in bean sprout laborer. 24 Hour Events: MSK pain from chest compressions KNOTT when got up Refused lisinopril, couldn't remember why, but amenable this am, getting med list from home Having GERD like s/s that are positional -750 at 0430 on lasix 20, SBP high 80s so NF deferred further diuresis ROS: Denies palpitations, PND, Orthopnea, dizziness/LH, LE swelling or pain, n/v, abd pain Telemetry: Rare PVCs Medications: See MAR list I/O: Intake/Output Summary (Last 24 hours) at 04/24/15 0758 Last data filed at 04/24/15 0300 Gross per 24 hour Intake 1350 ml Output 2100 ml Net -750 ml Admission Wt: 85 kg Physical Exam: Last value Range last 24 hrs Temperature Temp: 36.8 ??C (98.2 ??F) Temp: [36.5 ??C (97.7 ??F)-36.9 ??C (98.4 ??F)] Heart Rate Heart Rate: 74 Heart Rate: [65-82] Blood Pressure BP: (!) 93/37 mmHg BP: (87-124)/(37-70) Respiratory Rate Resp: 28 Resp: [11-28] SpO2 SpO2: 94 % on 2L SpO2: [91 %-99 %] Gen: Conversing appropriately HEENT: PERRL, sclerae anicteric, MMM, +conjunctival pallor Neck: JVP 8 cm CV: NSR, but no m/g/r noted Resp: CTA/B Abd: Soft, ND, no hepatosplenomegaly appreciated Ext: 1+ edema in BLE Skin: No rashes, wounds. Radial site with no hematoma Labs: Recent Labs 04/23/15 161 WBC 13.2* HGB 12.7 HCT 37.9 PLATELET 82* Recent Labs 04/23/15 161 MCV 87.3 Recent Labs 04/23/15 21304/23/15 161 NA -- 140 K 4.1 3.3* CL -- 104 CO2 -- 24 BUN -- 14 CREATININE -- 0.81 Recent Labs 04/23/15 161 CALCIUM 8.0* MAGNESIUM 0.71 PHOS 2.8 Recent Labs 04/23/15 161 BILITOT 0.7 0.6 BILIDIR 0.1 0.2 AST 54* 55* ALT 17 16 ALKPHOS 59 61 Recent Labs 04/23/15 161 INR 1.4* PTT >160.0* Recent Labs 04/24/15 0330 04/23/15 21304/23/15 1617 CK 976* 1448* 414* TROPONINT 4.63* 6.43* 0.92* Urine Analysis: No results found for: SPGRAVITYUA, PHUADIP, PROTEINUADIP, GLUCOSEU, KETONESUA, UROBILIUADIP, BLOODUADIP, NITRATEUA, LEUKOESTERUA, WBCUA, BILIRUBINUA Microbiology: BCx: None UCx: None Pertinent radiology/diagnostic studies: CXR (04/23/2015): There has been interval development of predominantly perihilar and right basilar opacity. Opacities extending to the apices bilaterally are noted. Pulmonary vascularity is somewhat indistinct. Trace blunting of the right costophrenic angle may be artifact versus trace effusion. The heart is borderline enlarged as before with aortic arch vascular calcifications. There is no pneumoperitoneum present and no interval osseous findings are seen. IMPRESSION: Interval development of hazy predominantly perihilar and right basilar opacity which may reflect developing edema. Superimposed infection/inflammation cannot be entirely excluded based on this radiographic appearance. Cath 04/23/2015: The patient's medical regimen was changed as follows: Drug eluting stent (MAYANK) implanted. 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 Continue ASA 81 mg po daily, clopidogrel 75 mg po daily x 12 months. Furosemide 20 mg IV given for LVEDP of 32 mmHg. TREATMENT PLAN: #STEMI -LAD lesion stented in bean sprout laborer -Troponin q6 until peak -BNP -CBC, BMP -CXR, EKG, TTE ordered -Cardiac rehab consult -Aspirin, plavix, atorvastatin 80, BB (hold if SBP <90 or HR <60), ACEI 2.5 -lasix -Echo toda #ITP -Plts 90 at OSH -Currently stable, will continue to monitor #HTN -Will address post-cath -See # STEMI -uptitrate BB, ACEI as tolerated, goal is HR 60 SBP 120 #Breast CA -Stage 1 breast CA - cont'd home Femara 2.5mg daily #Other PT/OT consulted Diet: Cardiac DVT ppx: SCDs Dispo: to Step down today Provider: DAYANNA PAIGE MD Provider #: [id number] STAFF ADDENDUM Patient interviewed and examined. Medical record reviewed. I agree with the Intercurrent History Past Medical History Physical Exam Objective Data Assessment and Plan as detailed by Dr. Paige, with whom the patient was interviewed, examined, and discussed, with thefollowing additions and/or exceptions. No recurrent chest pains or pressures. No SOB at rest. Tolerating medications. VSS. Lungs with bibasilar rales that do not clear with cough. 8 cm JVD above the sternal angle at 60 degrees. No new murmurs, rubs, gallops. Distal pulses and sensation intact. Neuro grossly intact. Remains in some mild heart failure. Would give additional IV furosemide today. Would prefer she gets GENE over beta-omar. Echo today. Can safely move to [facility]. Joseph Perales - 04/23/2015 11:08 PM EST Post Cath Note S: No chest pain, dyspnea, abdominal, groin, or back pain. Dressing clean and dry, no signs of infection, no bleeding from R femoral access site. O: Tc: 36.8 BP: 100/70 HR: 82 R: 16 SpO2: 98 % on 2L NC General: Lying in bed in NAD. Abd: No flank or back tenderness. Groin: Right femoral access site without hematoma or ecchymoses. No bleeding. Ext: both feet equally col, sensation intact, 1+ PT pulses A/P: s/p cath with benign appearing right femoral access site, only net -880 mL, SBP ~90 after evening metoprolol dose, will plan on IV lasix 20 mg if BP re-check is improved to SBP >100 Joseph Perales, PGY-2 Pager #[phone] documented in this encounter H&P Notes Joseph Munoz MD - 04/23/2015 2:56 PM EST Cardiology Admission H&P Patient Name: Barbara Casarez Date of : 1935 Age: 79 y.o. Hospital Admit Date: 04/23/2015 Inpatient Attending: Joseph Munoz MD PCP: MATT T REISERT, DO Presenting Diagnosis/Chief Complaint: Chest pain ID: 79 YOF with HTN, Stage 1 Breast CA, and ITP presented from OSH as a STEMI alert after a Vfib arrest. Pt received eip x1 and defibrillation x 1, lytics, aspirin/plavix were started. Pt achieved ROSCand was transferred here. En route, pt had evolving STEMI and was found to have LAD lesion in bean sprout laborer. Active Problem List: There are no hospital problems to display for this patient. HPI Pt is a 79 YO with PMH of stage 1 Breast CA, ITP controlled with Steroids and Rituxan, HTN who presented from [facility] as a STEMI alert. Pt was at OSH for CP that began Wednesday. Came to [facility] today at 0645 am. Initial EKG did not show any obvious signs of ischemia. Trop .87. Pt was was going to treated and transferred here for NSTEMI but had Vfib arrest at 1045 req 1 round of epi and shock. She achieved ROSC and good mentation so hypothermia protocol was not initiated. VS: HR 100-130 BP169/70, Sat 96% on 2L NC. EKG on repeat showed ST elevations in V2-V4 in I and AVL with reciprocal changes in inferior leads. CXR showed no PTX or fx. Pt was given full dose lytics, aspirin, plavix 75 and heparin 4k and DHART to bean sprout laborer. Past Medical History: Past Medical History Diagnosis Date ??? Cancer ??? Hypertension Surgical History/Problems: Past Surgical History Procedure Laterality Date ??? Pro removal of breast lesion 01/05/2013 EXCISION CYST, FIBROADENOMA, ABBERANT BREAST TISSUE,DUCT LESION,NIPPLE OR AREOLAR LESION (LUMPECTOMY) performed by Yakov Beck MD at [facility] MAIN OR ??? Pro mastectomy, partial 01/05/2013 MASTECTOMY PARTIAL performed by Yakov Beck MD at [facility] MAIN OR ??? Pro bx/remv, lymph node, deep axill 01/05/2013 BIOPSY OR EXCISION OF LYMPH NODE(S), OPEN, DEEP AXILLARY NODE(S) performed by Yakov Beck MD at [facility] MAIN OR ??? Pro identify sentinel node 01/05/2013 SENTINEL NODE INJECTION performed by Yakov Beck MD at [facility] MAIN OR Significant Family History: No family history on file. Social History: History Social History ??? Marital Status: Spouse Name: N/A Number of Children: N/A ??? Years of Education: N/A Occupational History ??? Not on file. Social History Main Topics ??? Smoking status: Never Smoker ??? Smokeless tobacco: Not on file ??? Alcohol Use: Yes Comment: occasional ??? Drug Use: No ??? Sexual Activity: Not on file Other Topics Concern ??? Not on file Social History Narrative REVIEW OF SYSTEMS: Review of Systems Pt immediately to bean sprout laborer. Denies CP, endorses nausea in flight, no emesis. No diaphoresis. Medications: Prescriptions prior to admission Medication Sig Dispense Refill Last Dose ??? letrozole (FEMARA) 2.5 mg Tablet Take 1 tablet by mouth daily. 90 tablet 3 ??? nystatin (MYCOSTATIN) 100,000 unit/mL Suspension Take 5 mLs by mouth 4 times daily. 180 mL 0 NotTaking at Unknown time ??? DILTiazem (CARDIZEM CD) 240 mg Capsule, Sust. Release 24 hr Take 240 mg by mouth daily. Taking at Unknown time ??? hydrochlorothiazide (HYDRODIURIL) 25 mg tablet Take 25 mg by mouth daily. Taking at Unknown time ??? doxazosin (CARDURA) 2 mg tablet Take 4 mg by mouth nightly. Taking at Unknown time ??? acetaminophen (TYLENOL) 325 mg tablet Take 2 tablets by mouth every 4 hours as needed for Pain. 30 tablet 1 Unknown at Unknown time ??? bisoprolol-hydrochlorothiazide (ZIAC) 10-6.25 mg per tablet Unknown at Unknown time ??? CALCIUM CARBONATE/VITAMIN D3 (CALCIUM 600 WITH VITAMIN D3 ORAL) Taking at Unknown time ??? multivitamin (THERAGRAN) tablet Taking at Unknown time Allergies: Allergies Allergen Reactions ??? Celebrex [Celecoxib] Other (See Comments) Hypotension, tachycardia per patient ??? Norvasc [Amlodipine] Other (See Comments) Causes edema to lower extremities PHYSICAL EXAM: Last set of vital signs: BP 123/64 mmHg Pulse 75 Temp(Src) 36.9 ??C (98.4 ??F) (Oral) Resp 15 Ht 147.3 cm (4' 10) Wt 85 kg (187 lb 6.3 oz) BMI 39.18 kg/m2 SpO2 98% Physical Exam Physical Exam: Gen: Conversing appropriately HEENT: PERRL, sclerae anicteric, MMM, +conjunctival pallor Neck: JVP 8 cm CV: NSR, but no m/g/r noted Resp: CTA/B Abd: Soft, ND, no hepatosplenomegaly appreciated Ext: 1+ edema in BLE Skin: No rashes, wounds. Radial site with no hematoma Diagnostics: Cath: The patient's medical regimen was changed as follows: Drug eluting stent (MAYANK) implanted. 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 Continue ASA 81 mg po daily, clopidogrel 75 mg po daily x 12 months. Furosemide 20 mg IV given for LVEDP of 32 mmHg. EKG: ST elevations in V2-V4 in I and AVL with reciprocal changes in inferior leads. LABS: Recent Results (from the past 24 hour(s)) Comprehensive metabolic panel (non-fasting) Result Value Ref Range Glucose Lvl 143 65 - 199 mg/dL BUN 14 8 - 18 mg/dL Creatinine 0.81 0.70 - 1.20 mg/dL Sodium 140 135 - 145 mmol/L Potassium 3.3 (L) 3.5 - 5.0 mmol/L Chloride 104 98 - 107 mmol/L CO2 24 22 - 31 mmol/L Anion Gap 12 5 - 15 mmol/L Calcium 8.0 (L) 8.5 - 10.5 mg/dL Total Protein 4.9 (L) 6.1 - 8.0 gm/dL Albumin 3.3 3.2 - 5.2 gm/dL AST 55 (H) 0 - 30 unit/L ALT 16 0 - 30 unit/L Alk Phos 61 40 - 104 unit/L Total Bilirubin 0.6 0.2 - 1.3 mg/dL Bili, Direct 0.2 0.0 - 0.3 mg/dL Estimated GFR >60 >=60 Cardiac Enzymes Result Value Ref Range Troponin-T 0.92 (H) <=0.03 ng/mL CK, Total 414 (H) 0 - 160 unit/L Hemogram Result Value Ref Range WBC 13.2 (H) 4.0 - 10.0 x10(3)/mcL RBC 4.34 3.93 - 5.22 x10(6)/mcL Hemoglobin 12.7 11.2 - 15.7 gm/dL Hematocrit 37.9 34.0 - 45.0 % MCV 87.3 79.0 - 94.0 fL MCH 29.3 26.6 - 32.2 pg MCHC 33.5 32.0 - 36.5 gm/dL Platelets 82 (L) 145 - 370 x10(3)/mcL RDWSD 43.2 35.0 - 46.0 fL RDWCV 13.4 10.9 - 14.4 % MPV 13.1 (H) 9.0 - 12.0 fL Differential, Automated Result Value Ref Range Neutrophils % 82.2 % Neutr Abs (ANC) 10.89 (H) 1.50 - 6.30 x10(3)/mcL Lymphocytes % 9.1 % Lymphocytes Abs 1.2 1.0 - 3.6 x10(3)/mcL Monocytes % 8.2 % Monocyte Abs 1.1 (H) 0.2 - 1.0 x10(3)/mcL Eosinophils % 0.2 % Eosinophils Abs 0.0 0.0 - 0.5 x10(3)/mcL Basophils % 0.1 % Basophils Abs 0.0 0.0 - 0.2 x10(3)/mcL Immature Gran % 0.20 % Елена Gran Abs 0.02 0.00 - 0.05 x10(3)/mcL Blue Tube HOLD Result Value Ref Range Blue Hold Sample in lab. Scan, Peripheral Blood Result Value Ref Range Plat Estimate Decreased RBC Morphology Normal ASSESSMENT: Pt is a 79 YO s/p STEMI with LAD lesion s/p MAYANK after V-fib arrest with ROSC achieved following a 3 day h/o CP. TREATMENT PLAN: #STEMI -LAD lesion stented in bean sprout laborer -Troponin q6 until peak -BNP -CBC, BMP -CXR pending, EKG with resolving ST/T changes, TTE ordered -Cardiac rehab consult -Aspirin 81 mg, plavix 75mg, Atorvastatin 80 mg, (Metoprolol 12.5 q8, prevents cardiac remodeling post UT in addition to BP control) (hold if SBP <90 or HR <60), ACEI 2.5 or ARB like Cozaar -LVEDP in 32- Lasix 20 #ITP -Plts 90 at OSH, 82 here -Currently stable, will continue to monitor #HTN -Will address post-cath -See # STEMI -uptitrate BB, ACEI as tolerated, goal is HR 60 SBP 120 #Breast CA -Stage 1 breast CA - cont'd home Femara 2.5mg daily #Other Replete K/Mg to 4.0/1.0 PT/OT consulted Diet: Cardiac DVT ppx: SCDs Dispo: Home after 72 hours Provider: DAYANNA PAIGE MD Provider #: [id number] 04/23/2015 STAFF ADDENDUM Patient interviewed and examined. Medical record reviewed. I agree with the History of Present Illness Past Medical History Family History, Social History Review of Systems Physical Exam Objective Data Assessment and Plan as detailed by Dr. Paige, with whom the patient was interviewed, examined, and discussed, with thefollowing additions and/or exceptions. The patient presented to the outside hospital with chest painbut no EKG changes and no positive cardiac enzymes. Today she had a VF arrest with prompt defibrillation, rapid return of spontaneous respirations and intact cognition. Her EKG showed ST segment elevation for which she was given full dose thrombolytics. Here she was found to have high grade and long mid-LAD disease with LUCIEN 3 flow. A long MAYANK was placed with the loss of only a small D2. LVEDP was high at 33. She will require IV diuresis tonight. Can also use IV NTG to drop preload and help clear her failure. If her BP permits I would start an GENE before a beta-omar given likely anterior and apical WMA. Plan for an echocardiogram in the morning. documented in this encounter Miscellaneous Notes Initial Assessments - GalindoBruno Smileyque, PT - 04/26/2015 10:19 AM EST Physical Therapy Evaluation Patient profile: Pt. is a 79 y.o. female admitted on 04/23/2015 by Joseph Davis MD with hx of HTN, Stage 1 Breast CA, and ITP who presented from OSH as a STEMI alert after a Vfib arrest. Pt received eip x1 and defibrillation x 1, lytics, aspirin/plavix were started. Pt achieved ROSC and was transferred here. En route, pt had evolving STEMI and was found to have LAD lesion in bean sprout laborer. PMH: Past Medical History Diagnosis Date ??? Cancer ??? Hypertension Past Surgical History Procedure Laterality Date ??? Pro removal of breast lesion 01/05/2013 EXCISION CYST, FIBROADENOMA, ABBERANT BREAST TISSUE,DUCT LESION,NIPPLE OR AREOLAR LESION (LUMPECTOMY) performed by aYkov Beck MD at [facility] MAIN OR ??? Pro mastectomy, partial 01/05/2013 MASTECTOMY PARTIAL performed by Yakov Beck MD at [facility] MAIN OR ??? Pro bx/remv, lymph node, deep axill 01/05/2013 BIOPSY OR EXCISION OF LYMPH NODE(S), OPEN, DEEP AXILLARY NODE(S) performed by Yakov Beck MD at [facility] MAIN OR ??? Pro identify sentinel node 01/05/2013 SENTINEL NODE INJECTION performed by Yakov Beck MD at [facility] MAIN OR Interval History: Per chart: Uneventful shift. Soft diastolic BPs, otherwise VSS. Rt groin cath siteWDL. Minor pain r/t chest compressions, relieved with PO tylenol. Social History: Patient lives by herself in a two level home with 1 step, no rail to enter (she usually holds on to [facility]). Patient usually sleep upstairs and uses the upstairs bathroom, but will stay downstairs during her recovery. Her daughters (one of them is a RN) are visiting her from out of state and will stay with her until next Wednesday. Patient's son lives [address] and checks in on her daily. Patient was an independent ambulator without AD. 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 Equipment: Patient has a RW, a shower chair, and an elevated toilet seat (upstairs bathroom) Precautions/Special Considerations: Fall Risk Subjective: ???I feel good. Objective: Pt seen for PT evaluation today. Pain: denies Vital Signs: Sp02: 95% on room air after walking, c/o mild SOB, reports this is her baseline HR: 115 bpm during walking (per tele); 77 bpm after walk Mental Status: alert, oriented to person, place, and time Musculoskeletal: ROM: WFL; has B knee OA issues, s/o injection L knee Strength: WFL Sensation: WFL Bed Mobility: Supine to Sit: Independent Sit to Supine: Independent Transfers: Sit to Stand: Independent Stand to Sit: Independent Bed <>Chair: Independent Gait: Distance: 150 ft Device used: no assistive device Level of assist: supervision Gait pattern: reciprocal Pt. to utilize no assistive device and supervision for ambulation with nursing. Balance: Sitting: Good Standing: Good Informed Consent: The patient understands and agrees to the PT treatment plan and goals. Education: Patient has been educated on Assistive device/technique, Safety , Precautions/protocol, Gait and Activity pacing/Energy conservation and verbalizes understanding. She reports she is very aware of energy conservation techniques and at home paces her activities very well (avoids having to go up and down stairs too frequently). Patient status, treatment, and mobility recommendations discussed with nursing. Assessment: Pt tolerated today???s evaluation very well. She transfers and ambulates independently without an AD. She has stairs at home but will be able to stay on one level; her daughters are home toassist patient until next week. Patient is in no need for further PT interventions in this setting. Recommend PT at home to look at home set-up followed by cardiac outpatient PT. Plan: Equipment needs: No equipment necessary Discharge Recommendations: Home with family support, VNA/PT/OT; followed by cardiac rehab outpatient No other consults recommended at this time Total time spent with patient: 28 minutes for PT evaluation Total timed interventions: 0 minutes Senait Galindo DPT, NCS 04/26/2015 Pager: [phone] Physical Therapy Rehabilitation Department Plan of Care - Ewa Fraser RN - 04/26/2015 10:17 AM EST PT alert and oriented, respirations even and unlabored however with ambulation, pt complained of some shortness of breath, after sitting down pt's O2sat%=95 and pt said she felt better. Pt reports shortness of breath with activity is her baseline at home and she adjusts activity accordingly. PT's personnel monitor read SR with some PACs over night but this ectopy has increased to bigem PACs, I gave MDs on unit strip and EKG ordered. Awaiting this to be done. PT otherwise says she feels ready to go home. PT has lidocaine patch on mid chest for bruising and rt groin dsg off, small bruise noted, well approximated. Plan of Care - Kathy Saucedo RN - 04/26/2015 1:37 AM EST OUTCOME EVALUATION NOTE: OUTCOME SUMMARY: Uneventful shift. Soft diastolic BPs, otherwise VSS. Rt groin cath site WDL. Minor pain r/t chest compressions, relieved with PO tylenol. Will continue to monitor. PLAN MOVING FORWARD: Possible d/c home today. Needs to walk without desatting. INDIVIDUALIZED FALL PREVENTION: Assistance: Independent in room, SBA in hallway Supervision: Intermittent, call crawford in reach Surveillance: Purposeful rounding, telemetry CPG OUTCOME EVALUATION: Problem: Skin Integrity Impairment, Risk/Actual (Adult, Obstetrics) Intervention: Pressure Reduction Devices 04/25/152199 Skin Interventions Pressure Reduction Devices pressure-redistributing mattress utilized Intervention: Pressure Reduction Techniques 04/25/152199 Skin Interventions Pressure Reduction Techniques tubing/devices free from under/on patient Intervention: Skin/Mucous Membrane Protection 04/25/152199 Skin Interventions Skin/Mucous Membrane Protection tubing/devices free from under/on patient Intervention: Wound Healing Promotion 04/25/152199 Skin Interventions Wound Healing Promotion adequate fluids provided;adequate nutrition provided;normothermia maintained;sleep/rest promoted Goal: Identify Signs and Symptoms and Related Risk Factors Signs and symptoms and related risk factors are identified upon initiation of Human Response Clinical Practice Guideline (CPG) Outcome: Ongoing (Interventions Implemented as Appropriate) Goal: Skin Integrity/Wound Healing Patient will demonstrate the desired outcomes. Outcome: Ongoing (Interventions Implemented as Appropriate) 04/24/15 0525 Skin Integrity Impairment, Risk/Actual (Adult, Obstetrics) Skin Integrity/Wound Healing making progress toward outcome Problem: Cardiac Output, Decreased (Adult, Obstetrics) Intervention: Airway/Ventilation Management 04/25/152199 Respiratory Interventions Airway/Ventilation Management activity adjusted to patient tolerance Intervention: Hemodynamic Stabilization 04/25/15 0848 Cardiac Interventions Hemodynamic Stabilization antihypertensive medication management Intervention: Dysrhythmia Management 04/26/15 013 Cardiac Interventions Dysrhythmia Management anticoagulant management;dysrhythmia medication management Intervention: Functional [place]/Activity Promotion 04/25/152199 Musculoskeletal Interventions Functional [place]/Activity Promotion ambulation to/from bathroom promoted;independence in BADLs promoted Intervention: Self-Care Promotion 04/26/15 0134 Musculoskeletal Interventions Self-Care Promotion personal/BADL objects within reach Goal: Identify Signs and Symptoms and Related Risk Factors Signs and symptoms and related risk factors are identified upon initiation of Human Response Clinical Practice Guideline (CPG) Outcome: Ongoing (Interventions Implemented as Appropriate) 04/26/15133 Cardiac Output, Decreased Personal Related Risk Factors (Cardiac Output, Decreased) age Treatment Related Related Risk Factors (Cardiac Output, Decreased) cardiac surgery/procedure Signs and Symptoms (Cardiac Output, Decreased) dyspnea;shortness of breath Goal: Adequate Cardiac Output/Effective Tissue Perfusion Patient will demonstrate the desired outcomes. Outcome: Ongoing (Interventions Implemented as Appropriate) 04/25/15135 Cardiac Output, Decreased (Adult, Obstetrics) Adequate Cardiac Output/Effective Tissue Perfusion making progress toward outcome Problem: Cardiac Catheterization with/without PCI (Adult) Intervention: Contrast Induced Nephropathy Management 04/26/15133 Genitourinary Interventions Contrast Induced Nephropathy Management fluids promoted Goal: Signs and symptoms of listed potential problems will be absent or manageable (reference (Cardiac Catheterization with/without PCI (Adult)) CPG) Outcome: Ongoing (Interventions Implemented as Appropriate) 04/26/15133 Cardiac Catheterization with/without PCI Problems Assessed (Cardiac Catheterization with/without PCI) all Problems Present (Cardiac Catheterization with/without PCI) none Problem: General Plan of Care Goal: Plan of Care Review Outcome: Ongoing (Interventions Implemented as Appropriate) 04/25/15 1601 04/25/152199 Plan of Care Review Plan of Care Outcome Status ongoing (interventions implemented as appropriate) -- Progress improving -- Coping/Psychosocial Response Interventions Plan of Care Reviewed with -- patient Goal: Individualization and Mutuality Outcome: Ongoing (Interventions Implemented as Appropriate) Goal: Fall Prevention-Safe Patient Handling Outcome: Ongoing (Interventions Implemented as Appropriate) 04/25/152199 Musculoskeletal Interventions Activity/Level of Assistance up in room;independently Positioning independent Self-Care Promotion personal/BADL objects within reach Pierre Fall Risk History of Falling 0 Secondary Diagnosis 15 Ambulatory Aids 0 Intravenous Therapy/Heparin/Saline Lock 20 Gait/Transferring 0 Mental Status 0 Score 35 OTHER Pierre Fall Risk Med Safety Interventions Safety Precautions/Fall Reduction nonskid shoes/slippers when out of bed Goal: Infection Control Outcome: Ongoing (Interventions Implemented as Appropriate) 04/25/152199 Safety Interventions Isolation Precautions standard precautions maintained Infection Prevention bronchial hygiene promoted;environmental surveillance;hydration promoted;nutrition promoted;promote handwashing;rest/sleep promoted Coping/Psychosocial Response Interventions Counseling emotional support provided Goal: Discharge Needs Assessment Outcome: Ongoing (Interventions Implemented as Appropriate) 04/25/15 1601 04/26/15 0134 Discharge Needs Assessment Concerns to be Addressed no discharge needs identified -- Equipment Needed After Discharge -- none Self-Care Equipment Currently Used at Home none -- Living Environment Transportation Available -- car;family or friend will provide Current Health Anticipated Changes Related to Illness -- none Plan of Care - Luciana Minaya RN - 04/25/2015 6:39 PM EST Problem: Skin Integrity Impairment, Risk/Actual (Adult, Obstetrics) Goal: Identify Signs and Symptoms and Related Risk Factors Signs and symptoms and related risk factors are identified upon initiation of Human Response Clinical Practice Guideline (CPG) Outcome: Ongoing (Interventions Implemented as Appropriate) Goal: Skin Integrity/Wound Healing Patient will demonstrate the desired outcomes. Outcome: Ongoing (Interventions Implemented as Appropriate) 04/24/15 0525 Skin Integrity Impairment, Risk/Actual (Adult, Obstetrics) Skin Integrity/Wound Healing making progress toward outcome OUTCOME EVALUATION NOTE: OUTCOME SUMMARY: Pt A/O. VSS. Denies chest pain. Visited by her family and friends. Ambulated in the hallway with nurse and family. Dyspnea on exertion. Resolved with rest. Please see previous progress note. Reviewed lab results with pt per pt request. Pt was able to wash up and take a shower. PLAN MOVING FORWARD: Promote mobility. Telemetry. IS. Continue to monitor for oxygen level. INDIVIDUALIZED FALL PREVENTION: Assistance: SB Supervision: Telemetry, room near nurse's station. Surveillance: Hourly rounding CPG GOAL OUTCOME EVALUATION: Problem: Cardiac Output, Decreased (Adult, Obstetrics) Goal: Identify Signs and Symptoms and Related Risk Factors Signs and symptoms and related risk factors are identified upon initiation of Human Response Clinical Practice Guideline (CPG) Outcome: Ongoing (Interventions Implemented as Appropriate) 04/24/15 1848 Cardiac Output, Decreased Personal Related Risk Factors (Cardiac Output, Decreased) age Goal: Adequate Cardiac Output/Effective Tissue Perfusion Patient will demonstrate the desired outcomes. Outcome: Ongoing (Interventions Implemented as Appropriate) 04/25/15 0136 Cardiac Output, Decreased (Adult, Obstetrics) Adequate Cardiac Output/Effective Tissue Perfusion making progress toward outcome Problem: Cardiac Catheterization with/without PCI (Adult) Goal: Signs and symptoms of listed potential problems will be absent or manageable (reference (Cardiac Catheterization with/without PCI (Adult)) CPG) Outcome: Ongoing (Interventions Implemented as Appropriate) 04/25/15 1601 Cardiac Catheterization with/without PCI Problems Assessed (Cardiac Catheterization with/without PCI) all Problem: General Plan of Care Goal: Plan of Care Review Outcome: Ongoing (Interventions Implemented as Appropriate) 04/25/15 0848 04/25/15 1601 Plan of Care Review Plan of Care Outcome Status -- ongoing (interventions implemented as appropriate) Progress -- improving Coping/Psychosocial Response Interventions Plan of Care Reviewed with patient -- Goal: Individualization and Mutuality Outcome: Ongoing (Interventions Implemented as Appropriate) Goal: Fall Prevention-Safe Patient Handling Outcome: Ongoing (Interventions Implemented as Appropriate) 04/25/15 0848 04/25/15 1205 Pierre Fall Risk History of Falling 0 -- Secondary Diagnosis 15 -- Ambulatory Aids 0 -- Intravenous Therapy/Heparin/Saline Lock 20 -- Gait/Transferring 0 -- Mental Status 0 -- Score 35 -- OTHER Pierre Fall Risk Med -- Safety Interventions Safety Precautions/Fall Reduction lighting adjusted for task/safety;fall reduction program maintained;environmental modification;nonskid shoes/slippers when out of bed -- Musculoskeletal Interventions Activity/Level of Assistance -- up in [place];with stand by assist Goal: Infection Control Outcome: Ongoing (Interventions Implemented as Appropriate) 04/25/15 0848 Safety Interventions Isolation Precautions standard precautions maintained Infection Prevention environmental surveillance;bronchial hygiene promoted;hydration promoted;nutrition promoted;promote handwashing;rest/sleep promoted Coping/Psychosocial Response Interventions Counseling reassurance provided;verbalization of feelings encouraged Goal: Discharge Needs Assessment Outcome: Ongoing (Interventions Implemented as Appropriate) 04/25/15 1601 Discharge Needs Assessment Concerns to be Addressed no discharge needs identified Self-Care Equipment Currently Used at Home none Living Environment Transportation Available family or friend will provide Plan of Care - Sudha Christiansen RN - 04/25/2015 1:39 AM EST Problem: Skin Integrity Impairment, Risk/Actual (Adult, Obstetrics) Goal: Identify Signs and Symptoms and Related Risk Factors Signs and symptoms and related risk factors are identified upon initiation of Human Response Clinical Practice Guideline (CPG) Outcome: Ongoing (Interventions Implemented as Appropriate) Problem: Cardiac Output, Decreased (Adult, Obstetrics) Goal: Adequate Cardiac Output/Effective Tissue Perfusion Patient will demonstrate the desired outcomes. Outcome: Ongoing (Interventions Implemented as Appropriate) 04/25/15135 Cardiac Output, Decreased (Adult, Obstetrics) Adequate Cardiac Output/Effective Tissue Perfusion making progress toward outcome OUTCOME EVALUATION NOTE: OUTCOME SUMMARY: Pt is in bed resting . No complaint of pain . Alert and oriented. Sinus on monitor. POC reviewed with pt. Diuresing. VSS. Call light at reach. Will continue monitor pt. PLAN MOVING FORWARD: Continue with POC INDIVIDUALIZED FALL PREVENTION: Assistance: Stand by Supervision: All activities Surveillance: Purposeful rounding CPG GOAL OUTCOME EVALUATION: Problem: Cardiac Catheterization with/without PCI (Adult) Goal: Signs and symptoms of listed potential problems will be absent or manageable (reference (Cardiac Catheterization with/without PCI (Adult)) CPG) Outcome: Ongoing (Interventions Implemented as Appropriate) 04/25/15135 Cardiac Catheterization with/without PCI Problems Assessed (Cardiac Catheterization with/without PCI) all Plan of Care - Luciana Minaya RN - 04/24/2015 7:04 PM EST Problem: Skin Integrity Impairment, Risk/Actual (Adult, Obstetrics) Goal: Identify Signs and Symptoms and Related Risk Factors Signs and symptoms and related risk factors are identified upon initiation of Human Response Clinical Practice Guideline (CPG) Outcome: Ongoing (Interventions Implemented as Appropriate) OUTCOME EVALUATION NOTE: OUTCOME SUMMARY: Pt transferred from [facility]. VSS. A/O. Denies chest pain and sob. Encouraged pt to use IS. Visited by son and daughter christal. Seen by cardiac rehab and PT. PACs an PVCs on tele PLAN MOVING FORWARD: Ambulatory O2 sats. Telemetry. IS. Monitor VS. INDIVIDUALIZED FALL PREVENTION: Assistance: SB Supervision: Telemetry. Room near nurse's station. Surveillance: Hourly rounding CPG GOAL OUTCOME EVALUATION: Goal: Skin Integrity/Wound Healing Patient will demonstrate the desired outcomes. Outcome: Ongoing (Interventions Implemented as Appropriate) 04/24/15 0525 Skin Integrity Impairment, Risk/Actual (Adult, Obstetrics) Skin Integrity/Wound Healing making progress toward outcome Problem: Cardiac Output, Decreased (Adult, Obstetrics) Goal: Identify Signs and Symptoms and Related Risk Factors Signs and symptoms and related risk factors are identified upon initiation of Human Response Clinical Practice Guideline (CPG) Outcome: Ongoing (Interventions Implemented as Appropriate) 04/24/15 1848 Cardiac Output, Decreased Personal Related Risk Factors (Cardiac Output, Decreased) age Problem: Cardiac Catheterization with/without PCI (Adult) Goal: Signs and symptoms of listed potential problems will be absent or manageable (reference (Cardiac Catheterization with/without PCI (Adult)) CPG) Outcome: Ongoing (Interventions Implemented as Appropriate) 04/24/15 1848 Cardiac Catheterization with/without PCI Problems Assessed (Cardiac Catheterization with/without PCI) all Consult Note - Fela Riley RN - 04/24/2015 12:45 PM EST Cardiac Rehabilitation Inpatient Evaluation Primary Cardiac Diagnosis: STEMI, s/p LAD stent Cardiac Risk Factors: Smoking: no Overweight: yes Hyperlipidemia: yes Sedentary: yes HTN: yes Family history: no DM: no Stress: some Patient Education: Reviewed cardiac cath findings, implications of coronary artery disease, managingangina and risk factor modification. Mediterranean diet guidelines briefly reviewed. Given parameters for home exercise. She is quite limited by her knees. Just had her 3rd in a series of injections.Able to walk short distances. Discussed swimming/pool exercise as an eventual option Phase II Referral: Participation in the outpatient cardiac rehabilitation program at [facility] was discussed. Patient agrees to a referral to this program. The referral will be sent at discharge and the patient should be contacted by the Program within 1- 2 weeks from discharge. Activity Summary: By discharge, patient will be able to perform self care, walk 5-7 minutes and go up and down stairs without signs or symptoms of ischemia. Activity Baseline Response Symptoms/Comments 1 loop HR 72 90 slow pace; walks with limp; tired afterward BP 106/42 130/57 desat ; came back up within 1 min rest O2 Sat 94% RA 88-89% RA RN aware; will walk with her again this ECG SR SR dense PACs afternoon blocked PACs Consult Note - Noelle Felix RN - 04/24/2015 9:23 AM EST Certified Wound Care Nurse [facility] Rounding Note Rounded on patient, discussed patient with RN. Reviewed assessment of all bony prominences and underdevices for pressure ulcer development, ability to turn/reposition and if there are any barriers dueto patient condition for routine care, turning schedules and or pressure ulcer prevention. Issues/concerns identified: None Current Wound Care Recommendations in place/reviewed? Standard pressure ulcer prevention strategies per the Adult Pressure Ulcer Prevention Job Aid. RN verbalized understanding and denied any skin/wound care issues. Discussed with RN: Indie Follow-up: Will complete consult. Please reconsult if new skin and wound issues arise. NOELLE FELIX RN Plan of Care - Giselle Enciso RN - 04/24/2015 5:27 AM EST Problem: Skin Integrity Impairment, Risk/Actual (Adult, Obstetrics) Goal: Identify Signs and Symptoms and Related Risk Factors Signs and symptoms and related risk factors are identified upon initiation of Human Response Clinical Practice Guideline (CPG) Outcome: Ongoing (Interventions Implemented as Appropriate) Goal: Skin Integrity/Wound Healing Patient will demonstrate the desired outcomes. Outcome: Ongoing (Interventions Implemented as Appropriate) 04/24/15 0525 Skin Integrity Impairment, Risk/Actual (Adult, Obstetrics) Skin Integrity/Wound Healing making progress toward outcome Problem: Cardiac Output, Decreased (Adult, Obstetrics) Goal: Identify Signs and Symptoms and Related Risk Factors Signs and symptoms and related risk factors are identified upon initiation of Human Response Clinical Practice Guideline (CPG) Outcome: Ongoing (Interventions Implemented as Appropriate) Goal: Adequate Cardiac Output/Effective Tissue Perfusion Patient will demonstrate the desired outcomes. Outcome: Ongoing (Interventions Implemented as Appropriate) BP & HR stable. Lungs with crackles but down to 2 L nc. Patient still KNOTT. Musculoskeletal pain from CPR. Tylenol admin with some improvement. documented in this encounter Plan of Treatment Upcoming Encounters Date Type Specialty Care Team Description 04/06/2022 Appointment Pulmonology 04/06/2022 Office Visit Pulmonology Matt Watson MD [facility] Amanda RAZA, [place] 0375 (Wo rk) Scheduled Orders Name Type Priority Associated Diagnoses Order S chedule EKG 12 Lead ECG STAT Ventricular fibrillation One Time for 1 Occurrences starting 2014 until 04/24/2015 Scheduled Referrals Name Type Priority Associated Diagnoses Order S chedule Referral to Outpatient Referral Routine ST elevation (STEMI) Ordered: Cardiac Rehab myocardial 04/26/2015 infarction involving left anterior descending coronary artery documented as of this encounter Procedures Procedure Name Priority Date/Time Associated Diagnosis Comme nts MOTOR EQUIPMENT LIEUTENANT SCAN 04/27/2015 12:00 AM EST MOTOR EQUIPMENT LIEUTENANT SCAN 04/27/2015 12:00 AM EST CARDIAC CATH SCAN 04/27/2015 12:00 AM EST XR CHEST PA AND LATERAL Routine 04/26/2015 2:59 R esults for this PM EST procedure are i n the results section. EKG 12-LEAD Routine 04/26/2015 11:30 Acute systolic Results f or this AM EST congestive heart procedure a re in failure the results PAF (paroxysmal section. atrial fibrillation) SCAN, PERIPHERAL BLOOD Routine 04/25/2015 8:03 Re sults for this AM EST procedure are i n the results section. HEMOGRAM Routine 04/25/2015 8:03 Results for this AM EST procedure are i n the results section. DIFFERENTIAL, AUTOMATED Routine 04/25/2015 8:03 R esults for this AM EST procedure are i n the results section. CBC (WITH DIFF) Routine 04/25/2015 8:03 AM EST POTASSIUM Routine 04/25/2015 8:03 Results for this AM EST procedure are i n the results section. MAGNESIUM Routine 04/25/2015 8:03 Results for this AM EST procedure are i n the results section. BASIC METABOLIC PANEL Routine 04/25/2015 8:03 Res ults for this (NON-FASTING) AM EST procedure are in the results section. ECHOCARDIOGRAM COMPLETE Routine 04/24/2015 10:07 Ventricular Results for this W CONTRAST AM EST fibrillation procedure are i n the results section. SCAN, PERIPHERAL BLOOD Routine 04/24/2015 8:15 Re sults for this AM EST procedure are i n the results section. NUCLEATED RED BLOOD Routine 04/24/2015 8:15 Resul ts for this CELLS AM EST procedure are i n the results section. HEMOGRAM Routine 04/24/2015 8:15 Results for this AM EST procedure are i n the results section. DIFFERENTIAL, AUTOMATED Routine 04/24/2015 8:15 R esults for this AM EST procedure are i n the results section. CBC (WITH DIFF) Routine 04/24/2015 8:15 AM EST BASIC METABOLIC PANEL Routine 04/24/2015 8:15 Res ults for this (NON-FASTING) AM EST procedure are in the results section. CARDIAC ENZYMES Routine 04/24/2015 3:30 Results f or this ([facility] EST procedure are i n the results section. TRIGLYCERIDE Routine 04/24/2015 3:30 Results for this AM EST procedure are i n the results section. LDL CHOLESTEROL, DIRECT Routine 04/24/2015 3:30 R esults for this AM EST procedure are i n the results section. HDL/CHOL PROFILE Routine 04/24/2015 3:30 Results for this AM EST procedure are i n the results section. HEMOGLOBIN A1C Routine 04/24/2015 3:30 Results fo r this AM EST procedure are i n the results section. GLUCOSE, FASTING Routine 04/24/2015 3:30 Results for this AM EST procedure are i n the results section. XR CHEST ONE VIEW Routine 04/23/2015 9:53 Results for this PM EST procedure are i n the results section. CARDIAC ENZYMES Routine 04/23/2015 9:30 Results f or this ([facility] PM EST procedure are i n the results section. POTASSIUM Routine 04/23/2015 9:30 Results for this PM EST procedure are i n the results section. EKG 12-LEAD Routine 04/23/2015 5:05 Ventricular Results for this PM EST fibrillation procedure are i n the results section. CARDIAC CATHETERIZATION Routine 04/23/2015 4:17 R esults for this PM EST procedure are i n the results section. SCAN, PERIPHERAL BLOOD STAT 04/23/2015 4:17 Re sults for this PM EST procedure are i n the results section. HEMOGRAM STAT 04/23/2015 4:17 Results for this PM EST procedure are i n the results section. DIFFERENTIAL, AUTOMATED STAT 04/23/2015 4:17 R esults for this PM EST procedure are i n the results section. BLUE TUBE HOLD STAT 04/23/2015 4:17 Results fo r this PM EST procedure are i n the results section. CARDIAC ENZYMES STAT 04/23/2015 4:17 Results f or this ([facility] PM EST procedure are i n the results section. APTT STAT 04/23/2015 4:17 Results for this PM EST procedure are i n the results section. PROTHROMBIN TIME STAT 04/23/2015 4:17 Results for this PM EST procedure are i n the results section. CBC (WITH DIFF) STAT 04/23/2015 4:17 PM EST TSH STAT 04/23/2015 4:17 Results for this PM EST procedure are i n the results section. PHOSPHORUS STAT 04/23/2015 4:17 Results for this PM EST procedure are i n the results section. PRO-BRAIN NATRIURETIC STAT 04/23/2015 4:17 Res ults for this PEPTIDE PM EST procedure are i n the results section. MAGNESIUM STAT 04/23/2015 4:17 Results for this PM EST procedure are i n the results section. HEPATIC FUNCTION PANEL STAT 04/23/2015 4:17 Re sults for this PM EST procedure are i n the results section. COMPREHENSIVE METABOLIC STAT 04/23/2015 4:17 R esults for this PANEL (NON-FASTING) PM EST procedur e are in the results section. documented in this encounter Results SCAN DOC: CARDIAC CATH (04/27/2015 12:00 AM EST) Narrative This result has an attachment that is no t available. Scanning Provider MEDIA MGR SCAN EXT ORDR/RSLT SCAN DOC: [employer]MENT LIEUTENANT (04/27/2015 12:00 AM EST) Narrative This result has an attachment that is no t available. Scanning Provider MEDIA MGR SCAN EXT ORDR/RSLT SCAN DOC: MOTOR EQUIPMENT LIEUTENANT (04/27/2015 12:00 AM EST) Narrative This result has an attachment that is no t available. Scanning Provider MEDIA MGR SCAN EXT ORDR/RSLT XR Chest Routine PA & Lateral (04/26/2015 2:59 PM EST) Anatomical Region Laterality Modality Chest N/A Digital Radiography Specimen (Source) Anatomical Location Collection Method / Collectio n Time Received Time / Laterality Volume Impressions 04/26/2015 3:25 PM EST IMPRESSION: No acute cardiopulmonary process. I have personally reviewed the image(s) and the residents interpretation and agree with the findings, Juan Jose hollins 04/26/2015 3:25 PM Narrative 04/26/2015 3:25 PM EST EXAMINATION: XR CHEST ROUTINE PA AND LATERAL CLINICAL HISTORY: sob TECHNIQUE: Frontal lateral views of the chest COMPARISON: Chest x-ray 06/23/2014 FINDINGS: There is a hazy opacity at the right bas e probably due to overlying breast tissue the lungs are otherwise clear. Th e cardiomediastinal silhouette is unchanged. There is mild blunting of shorty ateral costophrenic angles. No large pneumothorax. Procedure Note Juan Jose Merchant MD - 04/26/2015Formatt ing of this note might be different from the original. EXAMINATION: XR CHEST ROUTINE PA AND LAT ERAL CLINICAL HISTORY: sob TECHNIQUE: Frontal lateral views of the chest COMPARISON: Chest x-ray 06/23/2014 FINDINGS: There is a hazy opacity at the right bas e probably due to overlying breast tissue the lungs are otherwise clear. Th e cardiomediastinal silhouette is unchanged. There is mild blunting of shorty ateral costophrenic angles. No large pneumothorax. IMPRESSION IMPRESSION: No acute cardiopulmonary process. I have personally reviewed the image(s) and the residents interpretation and agree with the findings, Juan Jose hollins 04/26/2015 3:25 PM Pedro Luis Ghosh MD IMG DX ORDERABLES EKG 12 Lead (04/26/2015 11:30 AM EST) Component Value Ref Range Test Analysis Performed Pathologis t Method Time At Signature Ventricular rate 62 BPM MUSE SYSTEM Atrial Rate 62 BPM MUSE SYSTEM P-R Interval 174 ms MUSE SYSTEM QRS Duration 86 ms MUSE SYSTEM Q-T Interval 400 ms MUSE SYSTEM QTC Calculated 406 ms MUSE SYSTEM (Bezet) Calculated P Whitman 55 degrees MUSE SYSTEM Calculated R Whitman -72 degrees MUSE SYSTEM Calculated T Whitman 60 degrees MUSE SYSTEM INTERPRETATION Normal sinus rhythm MUSE SYSTEM Left axis deviation Nonspecific T wave abnormality Anterior infarct Abnormal ECG When compared with ECG of 23-APR-2015 17:05, T wave inversion no longer evident in Anterior leads QT has shortened Confirmed by MD MAI, OWEN ([id number]) on 04/26/2015 1:36: 06 PM Specimen Anatomical Collection Method Collection Time Receive d Time (Source) Location / / Volume Laterality 04/26/2015 11:30 04/26/2015 1:36 AM EST PM EST Joseph Munoz MD ECG ORDERABLES Performing Organization Address City/State/ZIP Code Phon e Number MUSE SYSTEM Scan, Peripheral Blood (04/25/2015 8:03 AM EST) Patholo gist Method Time Signature Plat Estimate Decreased CERNER MILLENNIUM RBC Morphology Abnormal CERNER MILLENNIUM Ovalocytes 1-5 /HPF CERNER MILLENNIUM Giant Less than 1 /HPF CERNER Platelets MILLENNIUM Specimen Anatomical Collection Method Collection Time Receive d Time (Source) Location / / Volume Laterality Blood specimen 04/25/2015 8:03 AM 015 8:27 (specimen) EST AM EST Resulting Agency Comment Spec In Lab Joseph Munoz MD HEMATOLOGY ORDERABLES Performing Organization Address City/[facility] [place] [address] CERNER MILLENNIUM Potassium (04/25/2015 8:03 AM EST) athologist Signature Potassium 4.0 3.5 - 5.0 CERNER mmol/L MILLENNIUM Comment: Please note: ??Patients with WBC >100,00 0 may have falsely elevated Potassium levels. ??For accurate Potassium quantif ication in these patients send serum separator tube (gold top) for subsequent determinations. ??Contact the Clinical Chemistry Laboratory if there are any qu estions. Specimen Anatomical Collection Method Collection Time Receive d Time (Source) Location / / Volume Laterality Blood specimen Venous Draw / 04/25/2015 8:03 AM 2014 8:27 (specimen) Unknown EST AM EST Resulting Agency Comment Spec In Lab Joseph Munoz MD CHEMISTRY ORDERABLES Performing Organization Address City/[facility]/[place] [address] CERNER MILLENNIUM Magnesium (04/25/2015 8:03 AM EST) athologist Signature Magnesium 0.79 0.69 - 1.07 CERNER mmol/L MILLENNIUM Specimen Anatomical Collection Method Collection Time Receive d Time (Source) Location / / Volume Laterality Blood specimen Venous Draw / 04/25/2015 8:03 AM 2014 8:27 (specimen) Unknown EST AM EST Resulting Agency Comment Spec In Lab Joseph Munoz MD CHEMISTRY ORDERABLES Performing Organization Address City/State/[place] [address] CERNER MILLENNIUM (ABNORMAL) Differential, Automated (04/25/2015 8:03 AM EST) Patholo gist Method Time Signature Neutrophils % 73.7 % CERNER MILLENNIUM Neutr Abs (ANC) 8.19 (H) 1.50 - CERNER 6.30 MILLENNIUM x10(3)/mc L Lymphocytes % 16.7 % CERNER MILLENNIUM Lymphocytes Abs 1.9 1.0 - 3.6 CERNER x10(3)/mc MILLENNIUM L Monocytes % 8.2 % CERNER MILLENNIUM Monocyte Abs 0.9 0.2 - 1.0 CERNER x10(3)/mc MILLENNIUM L Eosinophils % 0.7 % CERNER MILLENNIUM Eosinophils Abs 0.1 0.0 - 0.5 CERNER x10(3)/mc MILLENNIUM L Basophils % 0.3 % CERNER MILLENNIUM Basophils Abs 0.0 0.0 - 0.2 CERNER x10(3)/mc MILLENNIUM L Immature Gran % 0.40 % CERNER MILLENNIUM Comment: Immature granulocytes(IG's)percentage an d absolute count will include metamyelocytes, myelocytes, and promyelo cytes. Blood smears from CBCs yielding IG's will be scanned manually for concor dance. If this scan disagrees with the automated IG or if promyelocytes are not ed, a manual differential will be performed. Елена Gran Abs 0.04 0.00 - 0.05 x10(3)/mcL CER NER MILLENNIUM Specimen Anatomical Collection Method Collection Time Receive d Time (Source) Location / / Volume Laterality Blood specimen 04/25/2015 8:03 AM 015 8:27 (specimen) EST AM EST Resulting Agency Comment Spec In Lab Joseph Munoz MD HEMATOLOGY ORDERABLES Performing Organization Address City/State/ZIP Code Phon e Number [address] CERNER MILLENNIUM (ABNORMAL) Hemogram (04/25/2015 8:03 AM EST) P athologist Signature WBC 11.1 (H) 4.0 - 10.0 CERNER x10(3)/mcL MILLENNIUM RBC 4.05 3.93 - CERNER 5.22 MILLENNIUM x10(6)/mcL Hemoglobin 12.3 11.2 - CERNER 15.7 gm/dL MILLENNIUM Hematocrit 36.4 34.0 - CERNER 45.0 % MILLENNIUM MCV 89.9 79.0 - CERNER 94.0 fL MILLENNIUM MCH 30.4 26.6 - CERNER 32.2 pg MILLENNIUM MCHC 33.8 32.0 - CERNER 36.5 gm/dL MILLENNIUM Platelets 59 (L) 145 - 370 CERNER x10(3)/mcL MILLENNIUM RDWSD 46.9 (H) 35.0 - CERNER 46.0 fL MILLENNIUM RDWCV 14.3 10.9 - CERNER 14.4 % MILLENNIUM MPV 14.0 (H) 9.0 - 12.0 CERNER fL MILLENNIUM Specimen Anatomical Collection Method Collection Time Receive d Time (Source) Location / / Volume Laterality Blood specimen 04/25/2015 8:03 AM 015 8:27 (specimen) EST AM EST Resulting Agency Comment Spec In Lab Joseph Munoz MD HEMATOLOGY ORDERABLES Performing Organization Address City/State/ZIP Code Phon e Number [place] [id number] CERNER MILLENNIUM (ABNORMAL) Basic Metabolic Panel (non-fasting) (04/25/2015 8:03 AM EST) athologist Signature Glucose Lvl 105 65 - 199 CERNER mg/dL MILLENNIUM Comment: Diabetes: >=200 mg/dL plus symp toms BUN 27 (H) 8 - 18 mg/dL CERNER MILLENNIUM Creatinine 1.21 (H) 0.70 - 1.20 mg/dL CERNER MILL ENNIUM Comment: Please note that the pediatric reference intervals supplied above were not validated at [facility]. Results from pediatri c patients should be interpreted in conjunction to the patient's age, height and muscle mass. Sodium 144 135 - 145 mmol/L CERNER CHONG NIUM Potassium 4.0 3.5 - 5.0 mmol/L CERNER CHONG NIUM Comment: Please note: ??Patients with WBC >100,00 0 may have falsely elevated Potassium levels. ??For accurate Potassium quantif ication in these patients send serum separator tube (gold top) for subsequent determinations. ??Contact the Clinical Chemistry Laboratory if there are any qu estions. Chloride 105 98 - 107 mmol/L CERNER MILLENN IUM CO2 26 22 - 31 mmol/L CERNER MILLENNI UM Anion Gap 13 5 - 15 mmol/L CERNER MILLENNIU M Calcium 8.3 (L) 8.5 - 10.5 mg/dL CERNER CHONG NIUM Estimated GFR 43 (L) >=60 CERNER MILLENNIU M Comment: This estimated GFR (eGFR) value was [...] the following links into your internet browser. [email or web address] [email or web address] Specimen Anatomical Collection Method Collection Time Receive d Time (Source) Location / / Volume Laterality Blood specimen 04/25/2015 8:03 AM 015 8:27 (specimen) EST AM EST Resulting Agency Comment Spec In Lab Joseph Munoz MD CHEMISTRY ORDERABLES Performing Organization Address City/State/[place] [address] CERNER MILLENNIUM ECHOCARDIOGRAM COMPLETE W CONTRAST (04/24/2015 10:07 AM EST) P athologist Signature EF 56 HEARTLAB SYSTEM Anatomical Region Laterality Modality Other Specimen (Source) Anatomical Location Collection Method / Collectio n Time Received Time / Laterality Volume 04/24/2015 Narrative 04/24/2015 10:32 AM EST Procedure: ?Transthoracic Echocardiogram Patient: ?IZABELA Rhoades ? (Age): 1935(79y) Med Rec#: ? [id number] ?Sex: ?F ? Site Loc: ? [facility] ?Ht / Wt: ??147(cm)/86(kg) Pt. Loc: ?Animal Behaviourist ?BSA: ?1.78 Study Date: ?? 04/24/2015 ?Pt. Type: Inpatient Tape: ? Referring: Joseph Munoz ([id number]) Referring: ASHISH VALERA A Reading: Pedro Luis Carney ([id number]) [employer]omswing Operator: Stefanie Roque [facility] Diagnosis: *CAD, unspecified (414.4) CPT Codes: *Echo Full (95255) *Spectral Doppler (70609) *Color Doppler (14560) *Optison ([id number]) Indication: ?? Ventricular fibrillation, Chest pain BP: ? 101/51 HR: ? 86 SUMMARY: 1. The left ventricular chamber size is normal. The quantitative left ventricular ejection fraction by biplane Gonzalez's method is 56% with hypokinesis of the apical segments and a kinesis of the cap with no evidence of mural thrombus. 2. Right ventricular chamber size, wall thickness, and systolic function are within normal limits. The estimated pulmonary artery systolic pressure is normal at 32 mmHg. 3. The cardiac valves appear structurall y and functionally normal. 4. The pericardium appears normal and th ere is no evidence of a pericardial effusion. FINDINGS: ? Left Ventricle ?The left ventricular chamber size is normal. ?There is mild septal hypertrophy o f the left ventricle. ?Basal septal hypertrophy is observ ed. ?There is no evidence of LVOT obstr uction. ?No ventricular septal defect is vi sualized. ?There is normal global left ventri cular systolic function. ?The quantitative left ventricular ejection fraction by biplane Gonzalez's method is 56%. ?There are left ventricular segment al wall motion abnormalities present, as shown in the diagram below. ?Doppler assessment is consistent w ith normal left sided filling pressure. ?The ??apical anterior, apical late ral, and ??apical inferior wall segments are hypokinetic (score 2). ?Overall wallmotion score index is ??1.19 Left Atrium ?The left atrium is normal in size. 33 ml/m2. ?No atrial septal defect is visuali zed. Right Ventricle ?Right ventricular chamber size, wa ll thickness, and systolic function are within normal limits. ?The estimated pulmonary artery sys tolic pressure is 32 mmHg. ?The estimated right atrial pressur e is 3 mmHg. Right Atrium ?The right atrium appears normal. Aortic Valve ?The aortic valve is tricuspid. ?The aortic valve leaflets are mild ly thickened. ?There is no evidence of aortic dylan ve stenosis. ?There is no evidence of aortic reg urgitation. Mitral Valve ?The mitral valve appears normal in structure and function. ?There is no evidence of mitral dylan ve leaflet prolapse. ?There is posterior mitral annular calcification. ?There is trace mitral regurgitatio n present. Tricuspid Valve ?The tricuspid valve appears normal in structure and function. ?There is trace tricuspid regurgita tion present. Pulmonic Valve ?The pulmonic valve appears normal in structure and function. Pericardium ?The pericardium appears normal and there is no evidence of a pericardial effusion. Aorta ?The aortic root is normal in size. ?The ascending aorta is normal in s ize. ?There is no evidence of coarctatio n of the aorta. Pulmonary Artery ?The main pulmonary artery appears normal. Venous ?The inferior vena cava appears nor mal in size. ?There is a greater than 50% respir atory change in the inferior vena cava dimension. Misc ?The cardiac valves appear structur ally and functionally normal. ?See remainder of report for additi onal findings. ?Two-dimensional echo, spectral Dop pler and color Doppler performed. ?Optison contrast (one 3 ml vial) w as used to enhance endocardial definition. Excess contrast was discarde d. Chambers 2D ?Value ?Units (Range) ? IVSd (2D) ? 1.3 ?cm ? LVPWd (2D) ?1.1 ?cm ? IVS:LVPW ratio (2D) 1.1 ?ratio ? LVIDd (2D) ?3.8 ?cm ? LVIDs (2D) ?2.6 ?cm ? LVIDd (2D) index ?2.1 ?cm/m2 ? LVIDs (2D) index ?1.4 ?cm/m2 ? LV FS (2D) ?32 ? % ? EF Teichholz (2D) ?? 61 ? % ? Ao root diameter (2D3.2 ?cm (2.1 - 3.6) ? Ascending Ao ?3.5 ?cm (2 - 3.5) ? Volumes/Mass ?Value ?Units (Range) ? LA Area 4 CH ?20 ? cm2 (<21) ? RA AREA 4CH ? 15 ? cm2 ? LA ESV SP 4CH (MOD) 55 ? ml ? LA ESV SP 2CH (MOD) 59 ? ml ? LA ESV BP (MOD) ? 58 ? ml ? LA ESV BP (MOD) inde32.6 ? ml/m2 ? LV ESV SP 4CH (MOD) 48 ? ml ? LV ESV SP 2CH (MOD) 36 ? ml ? LV EDV BP ? 96 ? ml ? LV ESV BP ? 42 ? ml ? BP EF (MOD) ? 56 ? % ? LV mass (2D) ?149 ?g ? LV mass (2D) index ??83.7 ? g/m2 ? Diastolic/Systolic Function ?Value ?Units (Range) ? MV E-wave Vmax ?0.5 ?m/sec ? MV deceleration [id number] ?msec ? MV A-wave Vmax ?0.7 ?m/sec ? MV E:A ratio ?0.8 ?ratio ? LV septal e' Vmax ?? 0.1 ?m/sec ? LV E:e' septal ratio8 ?ratio ? Tricuspid Valve ?Value ?Units (Range) ? TR Vmax ? 2.7 ?m/sec ? TR peak gradient ?29 ? mmHg ? RAP ? 3 ?mmHg ? RVSP ?32 ? mmHg ? Measurement Trending Name ? 04/24/2015 ? LV EDV BP ?9 6 LVIDd (2D) ? 3. 76 LV ESV BP ?4 2 LA ESV BP (MOD) ?58 LVIDs (2D) ? 2. 55 Wall Motion: Segment Name ?Rest ? Base-Anteroseptal ?? Normal ? Base-Anterior ? Normal ? Base-Anterolateral ??Normal ? Base-Posterolateral Normal ? Base-Inferior ? Normal ? Base-Inferoseptal ?? Normal ? Mid-Anteroseptal ?Normal ? Mid-Anterior ?Normal ? Mid-Anterolateral ?? Normal ? Mid-Posterolateral ??Normal ? Mid-Inferior ?Normal ? Mid-Inferoseptal ?Normal ? Merrill-Septal ? Normal ? Merrill-Anterior ? Hypokinetic ? Merrill-Lateral ?Hypokinetic ? Merrill-Inferior ? Hypokinetic ? Merrill-Tip ?Akinetic ? This report has been electronically sign ed by: _ Pedro Luis Carney M.D. ? 04/24/2015 10:31:29 Images reviewed and interpretation verif d [facility] Cardiac Ultrasound Laboratory Procedure Note Pedro Luis Carney MD - 04/24/2015Formatti ng of this note might be different from the original. Procedure: Transthoracic Echocardiogram Patient: IZABELA AMOR(Age): [birth year](79y) Med Rec#: [id number] Sex: F Site Loc: [facility] Ht / Wt: 147(cm)/86(kg) Pt. Loc: Animal Behaviourist BSA: 1.78 Study Date: 04/24/2015 Pt. Type: Inpatie nt Tape: Referring: Joseph Munoz ([id number]) Referring: ASHISH VALERA A Reading: Pedro Luis Carney ([id number]) [employer]omswing Operator: Stefanie Roque [facility] Diagnosis: *CAD, unspecified (414.4) CPT Codes: *Echo Full (09797) *Spectral Doppler (74179) *Color Doppler (02856) *Optison ([id number]) Indication: Ventricular fibrillation, Ch est pain BP: 101/51 HR: 86 SUMMARY: 1. The left ventricular chamber size is normal. The quantitative left ventricular ejection fraction by biplane Gonzalez's method is 56% with hypokinesis of the apical segments and a kinesis of the cap with no evidence of mural thrombus. 2. Right ventricular chamber size, wall thickness, and systolic function are within normal limits. The estimated pulmonary artery systolic pressure is normal at 32 mmHg. 3. The cardiac valves appear structurall y and functionally normal. 4. The pericardium appears normal and th ere is no evidence of a pericardial effusion. FINDINGS: Left Ventricle The left ventricular chamber size is no rmal. There is mild septal hypertrophy of the left ventricle. Basal septal hypertrophy is observed. There is no evidence of LVOT obstructio n. No ventricular septal defect is visuali zed. There is normal global left ventricular systolic function. The quantitative left ventricular eject ion fraction by biplane Gonzalez's method is 56%. There are left ventricular segmental wa ll motion abnormalities present, as shown in the diagram below. Doppler assessment is consistent with n ormal left sided filling pressure. The apical anterior, apical lateral, an d apical inferior wall segments are hypokinetic (score 2). Overall wallmotion score index is 1.19 Left Atrium The left atrium is normal in size. 33 m l/m2. No atrial septal defect is visualized. Right Ventricle Right ventricular chamber size, wall th ickness, and systolic function are within normal limits. The estimated pulmonary artery systolic pressure is 32 mmHg. The estimated right atrial pressure is 3 mmHg. Right Atrium The right atrium appears normal. Aortic Valve The aortic valve is tricuspid. The aortic valve leaflets are mildly th ickened. There is no evidence of aortic valve st enosis. There is no evidence of aortic regurgit ation. Mitral Valve The mitral valve appears normal in stru cture and function. There is no evidence of mitral valve le aflet prolapse. There is posterior mitral annular calci fication. There is trace mitral regurgitation pre sent. Tricuspid Valve The tricuspid valve appears normal in s tructure and function. There is trace tricuspid regurgitation present. Pulmonic Valve The pulmonic valve appears normal in st ructure and function. Pericardium The pericardium appears normal and ther e is no evidence of a pericardial effusion. Aorta The aortic root is normal in size. The ascending aorta is normal in size. There is no evidence of coarctation of the aorta. Pulmonary Artery The main pulmonary artery appears karuna l. Venous The inferior vena cava appears normal i n size. There is a greater than 50% respiratory change in the inferior vena cava dimension. Misc The cardiac valves appear structurally and functionally normal. See remainder of report for additional findings. Two-dimensional echo, spectral Doppler and color Doppler performed. Optison contrast (one 3 ml vial) was us ed to enhance endocardial definition. Excess contrast was discarde d. Chambers 2D Value Units (Range) IVSd (2D) 1.3 cm LVPWd (2D) 1.1 cm IVS:LVPW ratio (2D) 1.1 ratio LVIDd (2D) 3.8 cm LVIDs (2D) 2.6 cm LVIDd (2D) index 2.1 cm/m2 LVIDs (2D) index 1.4 cm/m2 LV FS (2D) 32 % EF Teichholz (2D) 61 % Ao root diameter (2D3.2 cm (2.1 - 3.6) Ascending Ao 3.5 cm (2 - 3.5) Volumes/Mass Value Units (Range) LA Area 4 CH 20 cm2 (<21) RA AREA 4CH 15 cm2 LA ESV SP 4CH (MOD) 55 ml LA ESV SP 2CH (MOD) 59 ml LA ESV BP (MOD) 58 ml LA ESV BP (MOD) inde32.6 ml/m2 LV ESV SP 4CH (MOD) 48 ml LV ESV SP 2CH (MOD) 36 ml LV EDV BP 96 ml LV ESV BP 42 ml BP EF (MOD) 56 % LV mass (2D) 149 g LV mass (2D) index 83.7 g/m2 Diastolic/Systolic Function Value Units (Range) MV E-wave Vmax 0.5 m/sec MV deceleration [id number] msec MV A-wave Vmax 0.7 m/sec MV E:A ratio 0.8 ratio LV septal e' Vmax 0.1 m/sec LV E:e' septal ratio8 ratio Tricuspid Valve Value Units (Range) TR Vmax 2.7 m/sec TR peak gradient 29 mmHg RAP 3 mmHg RVSP 32 mmHg Measurement Trending Name 04/24/2015 LV EDV BP 96 LVIDd (2D) 3.76 LV ESV BP 42 LA ESV BP (MOD) 58 LVIDs (2D) 2.55 Wall Motion: Segment Name Rest Base-Anteroseptal Normal Base-Anterior Normal Base-Anterolateral Normal Base-Posterolateral Normal Base-Inferior Normal Base-Inferoseptal Normal Mid-Anteroseptal Normal Mid-Anterior Normal Mid-Anterolateral Normal Mid-Posterolateral Normal Mid-Inferior Normal Mid-Inferoseptal Normal Merrill-Septal Normal Merrill-Anterior Hypokinetic Merrill-Lateral Hypokinetic Merrill-Inferior Hypokinetic Merrill-Tip Akinetic This report has been electronically sign ed by: _ Pedro Luis Carney M.D. 04/24/2015 10:31 :29 Images reviewed and interpretation verif ied [facility] Cardiac Ultrasound Laboratory Joseph Munoz MD ECHO ORDERABLES Nucleated Red Blood Cells (04/24/2015 8:15 AM EST) P athologist Signature nRBC % Auto 0.0 % CERNER MILLENNIUM nRBC Abs Auto 0.000 0.000 - CERNER 0.012 MILLENNIUM x10(3)/mcL Specimen Anatomical Collection Method Collection Time Receive d Time (Source) Location / / Volume Laterality Blood specimen 04/24/2015 8:15 AM 015 8:30 (specimen) EST AM EST Resulting Agency Comment Spec In Lab Joseph Munoz MD HEMATOLOGY ORDERABLES Performing Organization Address City/State/[place] [address] CERNER MILLENNIUM Scan, Peripheral Blood (04/24/2015 8:15 AM EST) [facility] Sensus Experience Method Time Signature Plat Estimate Decreased CERNER MILLENNIUM RBC Morphology Normal CERNER MILLENNIUM Specimen Anatomical Collection Method Collection Time Receive d Time (Source) Location / / Volume Laterality Blood specimen 04/24/2015 8:15 AM 015 8:30 (specimen) EST AM EST Resulting Agency Comment Spec In Lab Joseph Munoz MD HEMATOLOGY ORDERABLES Performing Organization Address City/State/ZIP Code Phon e Number [address] CERNER MILLENNIUM (ABNORMAL) Differential, Automated (04/24/2015 8:15 AM EST) [facility] Sensus Experience Method Time Signature Neutrophils % 76.9 % CERNER MILLENNIUM Neutr Abs (ANC) 10.10 (H) 1.50 - CERNER 6.30 MILLENNIUM x10(3)/mc L Lymphocytes % 14.2 % CERNER MILLENNIUM Lymphocytes Abs 1.9 1.0 - 3.6 CERNER x10(3)/mc MILLENNIUM L Monocytes % 8.3 % CERNER MILLENNIUM Monocyte Abs 1.1 (H) 0.2 - 1.0 CERNER x10(3)/mc MILLENNIUM L Eosinophils % 0.2 % CERNER MILLENNIUM Eosinophils Abs 0.0 0.0 - 0.5 CERNER x10(3)/mc MILLENNIUM L Basophils % 0.1 % CERNER MILLENNIUM Basophils Abs 0.0 0.0 - 0.2 CERNER x10(3)/mc MILLENNIUM L Immature Gran % 0.30 % CERNER MILLENNIUM Comment: Immature granulocytes(IG's)percentage an d absolute count will include metamyelocytes, myelocytes, and promyelo cytes. Blood smears from CBCs yielding IG's will be scanned manually for concor dance. If this scan disagrees with the automated IG or if promyelocytes are not ed, a manual differential will be performed. Елена Gran Abs 0.04 0.00 - 0.05 x10(3)/mcL CER NER MILLENNIUM Specimen Anatomical Collection Method Collection Time Receive d Time (Source) Location / / Volume Laterality Blood specimen 04/24/2015 8:15 AM 015 8:30 (specimen) EST AM EST Resulting Agency Comment Spec In Lab Joseph Munoz MD HEMATOLOGY ORDERABLES Performing Organization Address City/[facility]/ZIP Code Phon e Number [address] CERNER MILLENNIUM (ABNORMAL) Hemogram (04/24/2015 8:15 AM EST) P athologist Signature WBC 13.1 (H) 4.0 - 10.0 CERNER x10(3)/mcL MILLENNIUM RBC 4.40 3.93 - CERNER 5.22 MILLENNIUM x10(6)/mcL Hemoglobin 12.8 11.2 - CERNER 15.7 gm/dL MILLENNIUM Hematocrit 38.9 34.0 - CERNER 45.0 % MILLENNIUM MCV 88.4 79.0 - CERNER 94.0 fL MILLENNIUM MCH 29.1 26.6 - CERNER 32.2 pg MILLENNIUM MCHC 32.9 32.0 - CERNER 36.5 gm/dL MILLENNIUM Platelets 65 (L) 145 - 370 CERNER x10(3)/mcL MILLENNIUM RDWSD 46.1 (H) 35.0 - CERNER 46.0 fL MILLENNIUM RDWCV 14.2 10.9 - CERNER 14.4 % MILLENNIUM MPV 13.1 (H) 9.0 - 12.0 CERNER fL MILLENNIUM Specimen Anatomical Collection Method Collection Time Receive d Time (Source) Location / / Volume Laterality Blood specimen 04/24/2015 8:15 AM 015 8:30 (specimen) EST AM EST Resulting Agency Comment Spec In Lab Joseph Munoz MD HEMATOLOGY ORDERABLES Performing Organization Address City/[facility]/ZIP Code Phon e Number [address] CERNER MILLENNIUM (ABNORMAL) Basic Metabolic Panel (non-fasting) (04/24/2015 8:15 AM EST) P athologist Signature Glucose Lvl 100 65 - 199 CERNER mg/dL MILLENNIUM Comment: Diabetes: >=200 mg/dL plus symp toms BUN 20 (H) 8 - 18 mg/dL CERNER MILLENNIUM Creatinine 1.35 (H) 0.70 - 1.20 mg/dL CERNER MILL ENNIUM Comment: Please note that the pediatric reference intervals supplied above were not validated at [facility]. Results from pediatri c patients should be interpreted in conjunction to the patient's age, height and muscle mass. Sodium 145 135 - 145 mmol/L CERNER CHONG NIUM Potassium 4.2 3.5 - 5.0 mmol/L CERNER CHONG NIUM Comment: Please note: ??Patients with WBC >100,00 0 may have falsely elevated Potassium levels. ??For accurate Potassium quantif ication in these patients send serum separator tube (gold top) for subsequent determinations. ??Contact the Clinical Chemistry Laboratory if there are any qu estions. Chloride 105 98 - 107 mmol/L CERNER MILLENN IUM CO2 27 22 - 31 mmol/L CERNER MILLENNI UM Anion Gap 13 5 - 15 mmol/L CERNER MILLENNIU M Calcium 8.5 8.5 - 10.5 mg/dL CERNER CHONG NIUM Estimated GFR 38 (L) >=60 CERNER MILLENNIU M Comment: This estimated GFR (eGFR) value was [...] the following links into your internet browser. [email or web address] Specimen Anatomical Collection Method Collection Time Receive d Time (Source) Location / / Volume Laterality Blood specimen 04/24/2015 8:15 AM 015 8:30 (specimen) EST AM EST Resulting Agency Comment Spec In Lab Joseph Munoz MD CHEMISTRY ORDERABLES Performing Organization Address City/State/ZIP Code Phon e Number [place] [id number] [facility] (ABNORMAL) Cardiac Enzymes (04/24/2015 3:30 AM EST) athologist Signature Troponin-T 4.63 (H) <=0.03 CERNER ng/mL [facility] Comment: result rechecked-pv 0.03 ng/mL: Represents the 99th percenti le upper reference limit for normals. >0.03 ng/mL: Elevated cardiac troponin T level indicative of myocardial damage. Diagnosis of acute, evolving or recent M I requires a typical rise and gradual fall of cTnT with at least ONE of the fo llowing: a) Ischemic symptoms b) Development of pathologic Q waves on the ECG c) ECG changes indicative of eschemia (S -T segment elevation/depression) d) Coronary artery intervention Serial bloods should be obtained for dana ting on admission, at 6 to 9 hrs and again at 12 to 24 hrs if earlier samples are negative and the clinical index of suspicion is high. Reference: [Myocardial infarction redefined? a consensus document of the Joint Society of Cardiology/[place] College o f Cardiology Committee for the redefinition of myocardial infarction. ? ?Journal of the [place] College of Cardiology 2000; 36: 959-969] CK, Total 976 (H) 0 - 160 unit/L [facility] UM Specimen Anatomical Collection Method Collection Time Receive d Time (Source) Location / / Volume Laterality Blood specimen Venous Draw / 04/24/2015 3:30 AM 2014 3:35 (specimen) Unknown EST AM EST Resulting Agency Comment Spec In Lab Joseph Munoz MD CHEMISTRY ORDERABLES Performing Organization Address City/State/ZIP Code Phon e Number [id number] [facility] (ABNORMAL) Glucose, fasting (04/24/2015 3:30 AM EST) athologist Signature Glucose 151 (H) 65 - 99 CERNER Fasting mg/dL [facility] Comment: ?Fasting* Glucose Interpretive C riteria Normal ?65-99 mg/dL Impaired Fasting glucose ?100-125 mg/dL Consistent with Diabetes Mellitus ? >or= 126 mg/dL *Fasting is defined as no caloric intake for at least 8 hours In the absence of unequivocal hypergly cemia a plasma glucose value of >or= 126 mg/dL should be repeated on a subseq uent day. Diagnosis and Classification of Diabetes Mellitus, Position Statement from the [place] Diabetes Association. ??Diabete s Care, Volume 33, Supplement 1, May 2009 Specimen Anatomical Collection Method Collection Time Receive d Time (Source) Location / / Volume Laterality Blood specimen 04/24/2015 3:30 AM 015 3:35 (specimen) EST AM EST Resulting Agency Comment Spec In Lab Joseph Munoz MD CHEMISTRY ORDERABLES Performing Organization Address [facility] [place] [address] CERNER MILLENNIUM Triglyceride (04/24/2015 3:30 AM EST) P athologist Signature Triglycerides 119 <=149 CERNER mg/dL MILLENNIUM Comment: Reference Range: Normal triglycerides: ??<150 mg/dL Borderline high: ??150-199 mg/dL High: ??200-499 mg/dL Very high: ??>lg=296 mg/dL CHIDI 2001; 285(19):3572-0310 Specimen Anatomical Collection Method Collection Time Receive d Time (Source) Location / / Volume Laterality Blood specimen 04/24/2015 3:30 AM 015 3:35 (specimen) EST AM EST Resulting Agency Comment Spec In Lab Joseph Munoz MD CHEMISTRY ORDERABLES Performing Organization Address City/[facility]/ZIP [facility] [place] [address] CERNER MILLENNIUM (ABNORMAL) HDL/Cholesterol Profile (04/24/2015 3:30 AM EST) P athologist Signature Chol, Total 149 <=199 mg/dL CERNER MILLENNIUM Comment: Recommendations of the NCEP Adult Treatm ent Panel for the following risk cutoff thresholds for the [place] populatio n: Desirable: <200 mg/dL Borderline High: 200-239 mg/dL High: > or = 240 mg/dL HDL 29 (L) >=40 mg/dL [facility] Comment: Reference range: ??Low HDL: ?? < 40 mg/dL ??Normal: ?40-60 mg/dL ??Desirable: > 60 mg/dL CHIDI 2001; 285(19):7984-7539 Chol/HDL Ratio 5.1 ratio [facility] Comment: A Cholesterol to HDL ratio below 4:1 is desirable. ??Studies suggest that increased CAD risk occurs at ratios abov e 5 for females and above 6 for men. ? [employer] Heart Association ??(htt p://www.americanheart.org) ? Barbara Int Med, 1994; 121:641 ? AM J Med, 1998; 105(1A):48S Specimen Anatomical Collection Method Collection Time Receive d Time (Source) Location / / Volume Laterality Blood specimen 04/24/2015 3:30 AM 015 3:35 (specimen) EST AM EST Resulting Agency Comment Spec In Lab Joseph Munoz MD CHEMISTRY ORDERABLES Performing Organization Address City/State/[place] [address] [facility] (ABNORMAL) LDL Cholesterol, Direct (04/24/2015 3:30 AM EST) P athologist Signature LDL Chol 108 (H) <=99 mg/dL [facility] Comment: The National Cholesterol Education Progr am (NCEP) has set the following guidelines for LDL Cholesterol: Reference range: ?? Optimal: ?<100 mg/dL ?? Near Optimal/Above Optimal: ?? 100-1 29 mg/dL ?? Borderline high: ?130-159 mg/dL ?? High: ? 160-189 mg/dL ?? Very high: ?>sl=665 mg/dL CHIDI 2001: 285(19):4402-9881 Specimen Anatomical Collection Method Collection Time Receive d Time (Source) Location / / Volume Laterality Blood specimen 04/24/2015 3:30 AM 015 3:35 (specimen) EST AM EST Resulting Agency Comment Spec In Lab Joseph Munoz MD CHEMISTRY ORDERABLES Performing Organization Address City/State/[place] [address] CERNER XIMENAENNIUM (ABNORMAL) Hemoglobin A1c (04/24/2015 3:30 AM EST) Analysis Performed At Patho logist Time Signature Hemoglobin A1C 6.0 (H) 4.3 - 5.6 CERNER % MILLENNIUM Comment: Reference Range: 4.3 - 5.6% 5.7 - 6.4% - Increased Risk of Developin g Diabetes Mellitus >= 6.5% - Consistent with diagnosis of D iabetes Mellitus In the absence of hyperglycemia (i.e. pl asma glucose > 200 mg/dL) or classic symptoms of hyperglycemia a repeat measu rement of HbA1c should be performed on a separate sample to confirm the diagnos is. Diagnosis and Classification of Diabetes Mellitus, Diabetes Care 2013; 36: Suppl. 1, S67-74 Est Avg Gluc See note mg/dL CERNER MILLENNIUM Comment: Estimated Average Glucose not appropriat e for patients over 70 years of age. eAG equivalents for HbA1c percentages: HbA1c(%) ?eAG(mg/dL) 6.0 ?126 6.5 ?140 7.0 ?154 7.5 ?169 8.0 ?183 8.5 ?197 9.0 ?212 9.5 ?226 10.0 ? 240 Limitations: The eAG calculation has not been validated on women, individuals below 18 years old and above 70 years old, and individuals with hemoglobinopathies. Additional resources are available on [facility] website: [email or web address] Mele SHEPHERD, Juan J, Renetta R, et al. ??Tr anslating the A1C assay into estimated average glucose values. ??Diabetes Care 2008:31(8):5602-0640. Specimen Anatomical Collection Method Collection Time Receive d Time (Source) Location / / Volume Laterality Blood specimen 04/24/2015 3:30 AM 015 3:35 (specimen) EST AM EST Resulting Agency Comment Spec In Lab Joseph Munoz MD CHEMISTRY ORDERABLES Performing Organization Address City/State/[place] [address] [facility] DocASAP XR Chest Pa or AP- 1 View (04/23/2015 9:53 PM EST) Anatomical Region Laterality Modality Chest N/A Digital Radiography Specimen (Source) Anatomical Location Collection Method / Collectio n Time Received Time / Laterality Volume Impressions 04/23/2015 10:06 PM EST IMPRESSION: Interval development of hazy predominant ly perihilar and right basilar opacity which may reflect developing edema. Supe rimposed infection/inflammation cannot be entirely excluded based on this radio graphic appearance. Narrative 04/23/2015 10:06 PM EST EXAMINATION: XR CHEST PA OR AP 1 VIEW CLINICAL HISTORY: STEMI TECHNIQUE: Single portable AP radiograph of the chest. COMPARISON: 12/09/2012. FINDINGS: There has been interval development of p redominantly perihilar and right basilar opacity. Opacities extending to the apic es bilaterally are noted. Pulmonary vascularity is somewhat indistinct. Trac e blunting of the right costophrenic angle may be artifact versus trace effus ion. The heart is borderline enlarged as before with aortic arch vascular calcifi cations. There is no pneumoperitoneum present and no interval osseous findings are seen. Procedure Note Jt Landaverde MD - 04/23/2015 EXAMINATION: XR CHEST PA OR AP 1 VIEW CLINICAL HISTORY: STEMI TECHNIQUE: Single portable AP radiograph of the chest. COMPARISON: 12/09/2012. FINDINGS: There has been interval development of p redominantly perihilar and right basilar opacity. Opacities extending to the apic es bilaterally are noted. Pulmonary vascularity is somewhat indistinct. Trac e blunting of the right costophrenic angle may be artifact versus trace effus ion. The heart is borderline enlarged as before with aortic arch vascular calcifi cations. There is no pneumoperitoneum present and no interval osseous findings are seen. IMPRESSION IMPRESSION: Interval development of hazy predominant ly perihilar and right basilar opacity which may reflect developing edema. Supe rimposed infection/inflammation cannot be entirely excluded based on this radio graphic appearance. Joseph Munoz MD IMG DX ORDERABLES (ABNORMAL) Cardiac Enzymes (04/23/2015 9:30 PM EST) P athologist Signature Troponin-T 6.43 (H) <=0.03 BERTO ng/mL [facility] Comment: result rechecked-AFP 0.03 ng/mL: Represents the 99th percenti le upper reference limit for normals. >0.03 ng/mL: Elevated cardiac troponin T level indicative of myocardial damage. Diagnosis of acute, evolving or recent M I requires a typical rise and gradual fall of cTnT with at least ONE of the fo llowing: a) Ischemic symptoms b) Development of pathologic Q waves on the ECG c) ECG changes indicative of eschemia (S -T segment elevation/depression) d) Coronary artery intervention Serial bloods should be obtained for dana ting on admission, at 6 to 9 hrs and again at 12 to 24 hrs if earlier samples are negative and the clinical index of suspicion is high. Reference: [Myocardial infarction redefined? a consensus document of the Joint Society of Cardiology/[place] College o f Cardiology Committee for the redefinition of myocardial infarction. ? ?Journal of the [place] College of Cardiology 2000; 36: 959-969] CK, Total 1,448 (H) 0 - 160 unit/L [facility] Comment: result rechecked-AFP Specimen Anatomical Collection Method Collection Time Receive d Time (Source) Location / / Volume Laterality Blood specimen 04/23/2015 9:30 PM 015 9:42 (specimen) EST PM EST Resulting Agency Comment Spec In Lab Joseph Munoz MD CHEMISTRY ORDERABLES Performing Organization Address City/[facility]/ZIP Code Phon e Number [address] CERNER MILLENNIUM Potassium (04/23/2015 9:30 PM EST) P athologist Signature Potassium 4.1 3.5 - 5.0 CERNER mmol/L MILLENNIUM Comment: Please note: ??Patients with WBC >100,00 0 may have falsely elevated Potassium levels. ??For accurate Potassium quantif ication in these patients send serum separator tube (gold top) for subsequent determinations. ??Contact the Clinical Chemistry Laboratory if there are any qu estions. Specimen Anatomical Collection Method Collection Time Receive d Time (Source) Location / / Volume Laterality Blood specimen 04/23/2015 9:30 PM 015 9:42 (specimen) EST PM EST Resulting Agency Comment Spec In Lab Joseph Munoz MD CHEMISTRY ORDERABLES Performing Organization Address [facility]/ZIP Code Phon e Number [address] CERNER MILLHONORHE[facility] CENTERIUM EKG 12 Lead (04/23/2015 5:05 PM EST) Patholo gist Method Time Signature Ventricular rate 70 BPM MUSE SYSTEM Atrial Rate 70 BPM MUSE SYSTEM P-R Interval 192 ms MUSE SYSTEM QRS Duration 86 ms MUSE SYSTEM Q-T Interval 478 ms MUSE SYSTEM QTC Calculated 516 ms MUSE SYSTEM (Bezet) Calculated P Whitman 55 degrees MUSE SYSTEM Calculated R Whitman -72 degrees MUSE SYSTEM Calculated T Whitman 102 degrees MUSE SYSTEM INTERPRETATION Sinus rhythm with Premature atrial complexes MUSE SYSTEM Left axis deviation ST elevation in Anterior leads Consider ACUTE UT / ELIZA UT Prolonged QT Abnormal ECG When compared with ECG of 05-JAN-2013 08:44, ST elevation is now Present Confirmed by MD Oskar, Ja ([id number]) on 04/23/2015 8: 55:06 PM Specimen Anatomical Collection Method Collection Time Receive d Time (Source) Location / / Volume Laterality 04/23/2015 5:05 PM 5 8:55 EST PM EST Gera Malenka MD ECG ORDERABLES Performing Organization Address City/State/ZIP Code Phon e Number MUSE SYSTEM Cardiac Catheterization (04/23/2015 4:17 PM EST) Anatomical Region Laterality Modality Other Specimen (Source) Anatomical Location Collection Method / Collectio n Time Received Time / Laterality Volume Narrative 04/23/2015 4:33 PM EST ?[facility] ? Cardiac Cathete rization/Intervention Report ? Patient Name: Barbara Casarez. ? Procedure Date: 04/23/2015 ? A #: [id number] ? Primary Physician: Pedro Luis Justin ? Case #: [id number] ? File Name: [id number] ? Catheterization Order Number: [id number] ? [facility] ? Final Report [place], [place] ? Patient Name: ? Barbara C. Wiggett ? ID#: ?[id number] ? : ?1935 ? Procedure Date: ? November 24, 20 15 ?Case #: ? [id number] ? Room: ? 1 ? Case Physician: ? Pedro Luis Hooper an, M.D. ?Start: ?14:57 ?Fellow: ? Manolo Saxena ss, M.D. ?Admission: ??04/23/2015 ? Referring ? Matt dejesus M.D. ? Physicians: ?Ashish Valera M.D. ? Procedures: ?* Coronary Angiography ?* Left Heart Catheterization ?* Coronary Stent Insertion ?* Access Site Angiography ? Pre Case Status: ?These procedures were performed on an emergent basis. ? History ?Barbara Casarez is a 79 year old woman. She has hypertension. The patient ?has a history of chest pain. Selma olson has a history of atrial ?fibrillation/atrial flutter, ve ntricular tachycardia/ventricular ?fibrillation and a cardiac arre st. The patient has a history of cancer. ?She also has a history of an ab normal EKG. Prior to the initiation of ?this procedure, the patient was designated as ASA Class IV. ? Patient Status at Catheterization: ?The patient presented with: ST- Elevation UT (STEMI) or equivalent (w/i 7 ?days). [place] [employer] angina class was IV. This patient ?received full dose lytics. This patient was on beta blockers and calcium ?kathryn blockers prior to the pr ocedure. No stress or imaging studies were ?performed prior to this procedu re ? Technique: ?A 6Fr sheath was inserted in th e right femoral artery utilizing the ?Seldinger technique. The left c oronary artery was injected utilizing a ?6Fr EBU 3.5 catheter. A 6Fr JR 4 catheter was used to inject the right ?coronary artery. Left ventricul ar pressure was performed with a 6Fr ?Angled pigtail catheter. Smith ry stent insertion was performed and the ?equipment utilized will be desc ribed in the intervention summary section. ?7,000 units of heparin were adm inistered. A total of 200cc of Omnipaque ?were opened, 130cc of Omnipaque were administered and 70cc of Omnipaque ?were wasted. Radiation: Fluoro time was 10.4 minutes, dose area product ?was 72,017 mGYcm2 and air kerma was 1,436 mGY. ?The patient received the follow ing medications prior to and during the ?procedure: Clopidogrel, Unfract ionated Heparin (any) and Lytic (any). ? Hemodynamics: ?Left Heart Pressures ? Resting: ? Syst D iast ? EDP ?a ?v ? m ?Ao 114 ?? 71 ?91 ?LV 93 ?32 ?Comments: ??LV pullback: ??LV 9 4, EDP 33. ??Ao 95/50 (70). ? Coronary Angiography: ?Dominance: Right ?Left Main ? The left main was normal . ?Left Anterior Descending ? There was an 85% eccentr ic long segmental stenosis of the mid ? segment of the left ante rior descending artery (LAD). ??The LAD was ? large. ? There was mild diffuse d isease of the entire vessel segment of the ? first diagonal branch (D iagonal 1) of the LAD. ??The Diagonal 1 was ? small. ? As a consequence of the catheterization/intervention procedures, a ? single discrete total oc clusion developed in the ostial segment of ? the second diagonal bran ch (Diagonal 2) of the LAD. ?Left Circumflex ? The left circumflex (LCX ) was normal. ?Right Coronary Artery ? There was mild diffuse d isease of the mid segment of the right ? coronary artery (RCA). ? ?The RCA was large. ? Indication for Intervention: ?Coronary intervention was indic ated for primary therapy for an acute ?myocardial infarction. Left Brett tricular Ejection fraction was not ?assessed. The priority for the procedure was Emergent. The NCDR ?indication for the procedure wa s STEMI (Stable after successful full-dose ?Thrombolysis). ? Intervention Summary: ?Left Anterior Descending Artery ? Mid 85% ? Stent insertion was performed on the 85% stenosis in the mid ? segment of the LAD. This was a de davidson lesion. According to ? the ACC/AHA cla ssification system, this lesion was a type B2 ? high risk lesio n. Primary prevention of restenosis was the ? indication for stent insertion. This was the culprit lesion. ? Vessel flow pre intervention was LUCIEN 3. ? Stent insertion was accomplished through a 6 Fr. EBU 3.5 ? guide. ??The nicky darby was predilated with a 2.00mm TREK 20 MM ? balloon with a maximum inflation pressure of 18 atmospheres. ? A premounted 3. 00 x 33 mm Avelino Rothman (MAYANK) was deployed ? with a maximum inflation pressure of 18 atmospheres. ? Following stent deployment, the lesion was dilated using a ? 3.50mm NC TREK 15 MM balloon with a maximum inflation pressure ? of 18 atmospher es. ? The final outco id was defined as successful. A coronary ? arteriolar vaso dilator was administered as part of the ? intervention on this lesion. There was no residual stenosis ? following this intervention. The final LUCIEN flow was 3. Events ? included no ref low. ? Vascular Access: ?Vascular Access Angiogram: ? A selective angiogram at the right femoral artery revealed no ? significant obstructive disease. ?Vascular Access Management: ? A 6 Fr Perclose was depl oyed at the right femoral artery access ? site. ? Conclusions: ?* One vessel coronary artery di sease (LAD) ?* Elevated left ventricular end diastolic pressure ?* Successful stent insertion of the mid LAD lesion ?* Drug eluting stent (MAYANK) impl anted. ? Complications/Events: ?The patient had no complication s during these procedures. ? Recommendations: ?The patient's medical regimen w as changed as follows: Drug eluting stent ?(MAYANK) implanted. 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 ?Continue ASA 81 mg po daily, cl opidogrel 75 mg po daily x 12 months. ?Furosemide 20 mg IV given for L VEDP of 32 mmHg. ?The attending physician was cassy hollins for the entire procedure. ?Dr. Pedro Luis Justin M.D. perfor med the coronary angiography, left heart ?catheterization, stent insertion-c oronary and access site angiography. ? Pedro Luis Justin M.D. ? Electronically Signed by: Pedro Luis lawson M.D. ? Report Finalized: 04/23/2015 ??16:27 ? Report Last Ammended: 04/24/2015 ??11:12 ? Procedure Note Pedro Luis Justin MD - 04/24/2015Format ting of this note might be different from the original. [facility] Cardiac Catheterization/Intervention Re port Patient Name: Barbara Casarez Procedure Date: 04/23/2015 A #: [id number] Primary Physician: Pedro Luis Justin Case #: [id number] File Name: [id number] Catheterization Order Number: [id number] [facility] Final Report [place], [place] Patient Name: Barbara Casarez ID#: [id number] : 1935 Procedure Date: April 23, 2015 Case # : [id number] Room: 1 Case Physician: Pedro Luis Justin M.D. Start: 14:57 Fellow: Manolo Bryant M.D. Admission: 04/23/2015 Referring Matt Mcdonnell M.D. Physicians: Ashish Valera M.D. Procedures: * Coronary Angiography * Left Heart Catheterization * Coronary Stent Insertion * Access Site Angiography Pre Case Status: These procedures were performed on an e mergent basis. History Barbara Casarez is a 79 year old woman. She has hypertension. The patient has a history of chest pain. She has a history of atrial fibrillation/atrial flutter, ventricula r tachycardia/ventricular fibrillation and a cardiac arrest. The patient has a history of cancer. She also has a history of an abnormal E KG. Prior to the initiation of this procedure, the patient was designa doreen as ASA Class IV. Patient Status at Catheterization: The patient presented with: ST-Elevatio n UT (STEMI) or equivalent (w/i 7 days). [place] [employer] angina class was IV. This patient received full dose lytics. This patient was on beta blockers and calcium kathryn blockers prior to the procedure. No stress or imaging studies were performed prior to this procedure Technique: A 6Fr sheath was inserted in the right femoral artery utilizing the Seldinger technique. The left coronary artery was injected utilizing a 6Fr EBU 3.5 catheter. A 6Fr JR 4 cathet er was used to inject the right coronary artery. Left ventricular press ure was performed with a 6Fr Angled pigtail catheter. Coronary stent insertion was performed and the equipment utilized will be described in the intervention summary section. 7,000 units of heparin were administere d. A total of 200cc of Omnipaque were opened, 130cc of Omnipaque were ad ministered and 70cc of Omnipaque were wasted. Radiation: Fluoro time was 10.4 minutes, dose area product was 72,017 mGYcm2 and air kerma was 1,4 36 mGY. The patient received the following medi cations prior to and during the procedure: Clopidogrel, Unfractionated Heparin (any) and Lytic (any). Hemodynamics: Left Heart Pressures Resting: Syst Diast EDP a v m Ao 114 71 91 LV 93 32 Comments: LV pullback: LV 94, EDP 33. A o 95/50 (70). Coronary Angiography: Dominance: Right Left Main The left main was normal. Left Anterior Descending There was an 85% eccentric long segment al stenosis of the mid segment of the left anterior descending artery (LAD). The LAD was large. There was mild diffuse disease of the e ntire vessel segment of the first diagonal branch (Diagonal 1) of t he LAD. The Diagonal 1 was small. As a consequence of the catheterization /intervention procedures, a single discrete total occlusion develop ed in the ostial segment of the second diagonal branch (Diagonal 2) of the LAD. Left Circumflex The left circumflex (LCX) was normal. Right Coronary Artery There was mild diffuse disease of the m id segment of the right coronary artery (RCA). The RCA was larg e. Indication for Intervention: Coronary intervention was indicated for primary therapy for an acute myocardial infarction. Left Ventricular Ejection fraction was not assessed. The priority for the procedur e was Emergent. The NCDR indication for the procedure was STEMI (Stable after successful full-dose Thrombolysis). Intervention Summary: Left Anterior Descending Artery Mid 85% Stent insertion was performed on the 85 % stenosis in the mid segment of the LAD. This was a de davidson lesion. According to the ACC/AHA classification system, this lesion was a type B2 high risk lesion. Primary prevention of restenosis was the indication for stent insertion. This wa s the culprit lesion. Vessel flow pre intervention was LUCIEN 3 . Stent insertion was accomplished throug h a 6 Fr. EBU 3.5 guide. The lesion was predilated with a 2.00mm TREK 20 MM balloon with a maximum inflation pressu re of 18 atmospheres. A premounted 3.00 x 33 mm Xience Alpine (MAYANK) was deployed with a maximum inflation pressure of 18 atmospheres. Following stent deployment, the lesion was dilated using a 3.50mm NC TREK 15 MM balloon with a max imum inflation pressure of 18 atmospheres. The final outcome was defined as succes sful. A coronary arteriolar vasodilator was administered as part of the intervention on this lesion. There was no residual stenosis following this intervention. The final LUCIEN flow was 3. Events included no reflow. Vascular Access: Vascular Access Angiogram: A selective angiogram at the right femo ral artery revealed no significant obstructive disease. Vascular Access Management: A 6 Fr Perclose was deployed at the [facility] femoral artery access site. 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 Complications/Events: The patient had no complications during these procedures. Recommendations: The patient's medical regimen was lo ed as follows: Drug eluting stent (MAYANK) implanted. 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 Continue ASA 81 mg po daily, clopidogre l 75 mg po daily x 12 months. Furosemide 20 mg IV given for LVEDP of 32 mmHg. The attending physician was present for the entire procedure. Dr. Pedro Luis Justin M.D. performed t he coronary angiography, left heart catheterization, stent insertion-smith ry and access site angiography. Pedro Luis Justin M.D. Electronically Signed by: Pedro Luis lawson M.D. Report Finalized: 04/23/2015 16:27 Report Last Ammended: 04/24/2015 11:12 Pedro Luis Justin MD CARDIAC CATH ORDERABLES (ABNORMAL) Hepatic Function Panel (04/23/2015 4:17 PM EST) P athologist Signature Total Protein 5.2 (L) 6.1 - 8.0 CERNER gm/dL MILLENNIUM Albumin 3.2 3.2 - 5.2 CERNER gm/dL MILLENNIUM AST 54 (H) 0 - 30 CERNER unit/L MILLENNIUM ALT 17 0 - 30 CERNER unit/L [facility] Alk Phos 59 40 - 104 CERNER unit/L MILLENNIUM Total 0.7 0.2 - 1.3 CERNER Bilirubin mg/dL [facility] Bili, Direct 0.1 0.0 - 0.3 CERNER mg/dL [facility] Specimen Anatomical Collection Method Collection Time Receive d Time (Source) Location / / Volume Laterality Blood specimen Venous Draw / 04/23/2015 4:17 PM 2014 4:23 (specimen) Unknown EST PM EST Resulting Agency Comment Spec In Lab Joseph Munoz MD CHEMISTRY ORDERABLES Performing Organization Address City/[facility]/ZIP Code Phon e Number [address] CERNER MILLENNIUM (ABNORMAL) pro-Brain Natriuretic Peptide (04/23/2015 4:17 PM EST) athologist Signature ProBNP 5,186 (H) <=450 CERNER pg/mL MILLENNIUM Specimen Anatomical Collection Method Collection Time Receive d Time (Source) Location / / Volume Laterality Blood specimen Venous Draw / 04/23/2015 4:17 PM 2014 4:23 (specimen) Unknown EST PM EST Resulting Agency Comment Spec In Lab Joseph Munoz MD CHEMISTRY ORDERABLES Performing Organization Address City/[facility]/ZIP Code Phon e Number [address] CERNER MILLENNIUM TSH (04/23/2015 4:17 PM EST) athologist Signature TSH 2.40 0.27 - 4.20 CERNER mcIU/mL MILLENNIUM Specimen Anatomical Collection Method Collection Time Receive d Time (Source) Location / / Volume Laterality Blood specimen Venous Draw / 04/23/2015 4:17 PM 2014 4:23 (specimen) Unknown EST PM EST Resulting Agency Comment Spec In Lab Joseph Munoz MD CHEMISTRY ORDERABLES Performing Organization Address City/[facility]/ZIP Code Phon e Number [address] CERNER MILLENNIUM Phosphorus (04/23/2015 4:17 PM EST) athologist Signature Phosphorus 2.8 2.5 - 4.5 CERNER mg/dL [facility] Specimen Anatomical Collection Method Collection Time Receive d Time (Source) Location / / Volume Laterality Blood specimen Venous Draw / 04/23/2015 4:17 PM 2014 4:23 (specimen) Unknown EST PM EST Resulting Agency Comment Spec In Lab Joseph Munoz MD CHEMISTRY ORDERABLES Performing Organization Address City/[facility]/[place] [address] CERNER MILLENNIUM Magnesium (04/23/2015 4:17 PM EST) athologist Signature Magnesium 0.71 0.69 - 1.07 CERNER mmol/L [facility] Specimen Anatomical Collection Method Collection Time Receive d Time (Source) Location / / Volume Laterality Blood specimen Venous Draw / 04/23/2015 4:17 PM 2014 4:23 (specimen) Unknown EST PM EST Resulting Agency Comment Spec In Lab Joseph Munoz MD CHEMISTRY ORDERABLES Performing Organization Address City/[facility] Phon e Number [address] CERNER MILLENNIUM (ABNORMAL) APTT (04/23/2015 4:17 PM EST) athologist [facility] PTT >160.0 25 - 35 CERNER (Critical) MILLENNIUM Comment: Called by: , Read back by: [facility]/ravindra torres, Date/Time: 04/23/15 18:06. Recommended therapeutic PTT range for fu ll dose unfractionated heparin is 80-114 seconds. Specimen Anatomical Collection Method Collection Time Receive d Time (Source) Location / / Volume Laterality Blood specimen Venous Draw / 04/23/2015 4:17 PM 2014 4:22 (specimen) Unknown EST PM EST Resulting Agency Comment Spec In Lab Joseph Munoz MD HEMATOLOGY ORDERABLES Performing Organization Address City/[facility]/ZIP [facility] Phon e Number [address] CERNER MILLENNIUM (ABNORMAL) Prothrombin Time (04/23/2015 4:17 PM EST) P athologist Signature PT 17.0 (H) 12.0 - 15.0 CERNER sec MILLENNIUM Comment: Transfusion Committee Guidelines: INR less than 2.0, PTT less than OR equal to 43.5 seconds, or Fibrinogen greater t nguyễn or equal to 100 mg/dl indicate adequate procoagulant activity for hemos tasis in patients without underlying bleeding disorders. INR 1.4 (H) 0.9 - 1.1 CERNER MILLENNIUM Specimen Anatomical Collection Method Collection Time Receive d Time (Source) Location / / Volume Laterality Blood specimen Venous Draw / 04/23/2015 4:17 PM 2014 4:22 (specimen) Unknown EST PM EST Resulting Agency Comment Spec In Lab Joseph Munoz MD HEMATOLOGY ORDERABLES Performing Organization Address City/State/[place] [address] CERNER MILLENNIUM Scan, Peripheral Blood (04/23/2015 4:17 PM EST) [facility] gist Method Time Signature Plat Estimate Decreased [facility] MILLENNIUM RBC Morphology Normal [facility] Specimen Anatomical Collection Method Collection Time Receive d Time (Source) Location / / Volume Laterality Blood specimen 04/23/2015 4:17 PM 015 4:17 (specimen) EST PM EST Resulting Agency Comment Spec In Lab Joseph Munoz MD HEMATOLOGY ORDERABLES Performing Organization Address City/State/[place] [address] CERNER MILLENNIUM Blue Tube HOLD (04/23/2015 4:17 PM EST) P athologist Signature Blue Hold Sample in [facility] lab. MILLENNIUM Specimen Anatomical Collection Method Collection Time Receive d Time (Source) Location / / Volume Laterality Blood specimen Venous Draw / 04/23/2015 4:17 PM 2014 4:22 (specimen) Unknown EST PM EST Joseph Munoz MD HEMATOLOGY ORDERABLES Performing Organization Address City/State/[place] [address] CERNER MILLENNIUM (ABNORMAL) Differential, Automated (04/23/2015 4:17 PM EST) Patholo gist Method Time Signature Neutrophils % 82.2 % CERNER MILLENNIUM Neutr Abs (ANC) 10.89 (H) 1.50 - CERNER 6.30 MILLENNIUM x10(3)/mc L Lymphocytes % 9.1 % CERNER MILLENNIUM Lymphocytes Abs 1.2 1.0 - 3.6 CERNER x10(3)/mc MILLENNIUM L Monocytes % 8.2 % CERNER MILLENNIUM Monocyte Abs 1.1 (H) 0.2 - 1.0 CERNER x10(3)/mc MILLENNIUM L Eosinophils % 0.2 % CERNER MILLENNIUM Eosinophils Abs 0.0 0.0 - 0.5 CERNER x10(3)/mc MILLENNIUM L Basophils % 0.1 % CERNER MILLENNIUM Basophils Abs 0.0 0.0 - 0.2 CERNER x10(3)/mc MILLENNIUM L Immature Gran % 0.20 % CERNER MILLENNIUM Comment: Immature granulocytes(IG's)percentage an d absolute count will include metamyelocytes, myelocytes, and promyelo cytes. Blood smears from CBCs yielding IG's will be scanned manually for concor dance. If this scan disagrees with the automated IG or if promyelocytes are not ed, a manual differential will be performed. Елена Gran Abs 0.02 0.00 - 0.05 x10(3)/mcL CER NER MILLENNIUM Specimen Anatomical Collection Method Collection Time Receive d Time (Source) Location / / Volume Laterality Blood specimen 04/23/2015 4:17 PM 015 4:17 (specimen) EST PM EST Resulting Agency Comment Spec In Lab Jsoeph Munoz MD HEMATOLOGY ORDERABLES Performing Organization Address City/State/ZIP Code Phon e Number [place] [id number] CERNER MILLENNIUM (ABNORMAL) Hemogram (04/23/2015 4:17 PM EST) P athologist Signature WBC 13.2 (H) 4.0 - 10.0 CERNER x10(3)/mcL MILLENNIUM RBC 4.34 3.93 - CERNER 5.22 MILLENNIUM x10(6)/mcL Hemoglobin 12.7 11.2 - CERNER 15.7 gm/dL MILLENNIUM Hematocrit 37.9 34.0 - CERNER 45.0 % MILLENNIUM MCV 87.3 79.0 - CERNER 94.0 fL MILLENNIUM MCH 29.3 26.6 - CERNER 32.2 pg MILLENNIUM MCHC 33.5 32.0 - CERNER 36.5 gm/dL MILLENNIUM Platelets 82 (L) 145 - 370 CERNER x10(3)/mcL MILLENNIUM RDWSD 43.2 35.0 - CERNER 46.0 fL MILLENNIUM RDWCV 13.4 10.9 - CERNER 14.4 % MILLENNIUM MPV 13.1 (H) 9.0 - 12.0 CERNER fL MILLENNIUM Specimen Anatomical Collection Method Collection Time Receive d Time (Source) Location / / Volume Laterality Blood specimen 04/23/2015 4:17 PM 015 4:17 (specimen) EST PM EST Resulting Agency Comment Spec In Lab Joseph Munoz MD HEMATOLOGY ORDERABLES Performing Organization Address City/State/[place] [address] CERNER MILLENNIUM (ABNORMAL) Cardiac Enzymes (04/23/2015 4:17 PM EST) athologist Signature Troponin-T 0.92 (H) <=0.03 CERNER ng/mL [facility] Comment: 0.03 ng/mL: Represents the 99th percenti le upper reference limit for normals. >0.03 ng/mL: Elevated cardiac troponin T level indicative of myocardial damage. Diagnosis of acute, evolving or recent M I requires a typical rise and gradual fall of cTnT with at least ONE of the fo llowing: a) Ischemic symptoms b) Development of pathologic Q waves on the ECG c) ECG changes indicative of eschemia (S -T segment elevation/depression) d) Coronary artery intervention Serial bloods should be obtained for dana ting on admission, at 6 to 9 hrs and again at 12 to 24 hrs if earlier samples are negative and the clinical index of suspicion is high. Reference: [Myocardial infarction redefined? a consensus document of the Joint Society of Cardiology/[employer] o f [employer] Committee for the redefinition of myocardial infarction. ? ?Journal of the [employer] 2000; 36: 959-969] CK, Total 414 (H) 0 - 160 unit/L CERNER MILLENNI UM Specimen Anatomical Collection Method Collection Time Receive d Time (Source) Location / / Volume Laterality Blood specimen 04/23/2015 4:17 PM 015 4:17 (specimen) EST PM EST Resulting Agency Comment Spec In Lab Joseph Munoz MD CHEMISTRY ORDERABLES Performing Organization Address City/State/[place] [address] CERNER MILLENNIUM (ABNORMAL) Comprehensive metabolic panel (non-fasting) (04/23/2015 4:17 PM EST) athologist Signature Glucose Lvl 143 65 - 199 CERNER mg/dL MILLENNIUM Comment: Diabetes: >=200 mg/dL plus symp toms BUN 14 8 - 18 mg/dL CERNER MILLENNIUM Creatinine 0.81 0.70 - 1.20 mg/dL CERNER MILL ENNIUM Comment: Please note that the pediatric reference intervals supplied above were not validated at [facility]. Results from pediatri c patients should be interpreted in conjunction to the patient's age, height and muscle mass. Sodium 140 135 - 145 mmol/L CERNER CHONG NIUM Potassium 3.3 (L) 3.5 - 5.0 mmol/L CERNER CHONG NIUM Comment: Please note: ??Patients with WBC >100,00 0 may have falsely elevated Potassium levels. ??For accurate Potassium quantif ication in these patients send serum separator tube (gold top) for subsequent determinations. ??Contact the Clinical Chemistry Laboratory if there are any qu estions. Chloride 104 98 - 107 mmol/L CERNER MILLENN IUM CO2 24 22 - 31 mmol/L CERNER MILLENNI UM Anion Gap 12 5 - 15 mmol/L CERNER MILLENNIU M Calcium 8.0 (L) 8.5 - 10.5 mg/dL CERNER CHONG NIUM Total Protein 4.9 (L) 6.1 - 8.0 gm/dL CERNER MIL LENNIUM Albumin 3.3 3.2 - 5.2 gm/dL CERNER MILLENN IUM AST 55 (H) 0 - 30 unit/L CERNER MILLENNIU M ALT 16 0 - 30 unit/L BERTO CASTROIU M Alk Phos 61 40 - 104 unit/L BERTO BUENOENN IUM Total Bilirubin 0.6 0.2 - 1.3 mg/dL BERTO M ILLENNIUM Bili, Direct 0.2 0.0 - 0.3 mg/dL BERTO BUENO ENNIUM Estimated GFR >60 >=60 BERTO CASTROIU M Comment: This estimated GFR (eGFR) value was [...] the following links into your internet browser. http://[employer]/DHnkdep http://[employer]/DHMCnkf Specimen Anatomical Collection Method Collection Time Receive d Time (Source) Location / / Volume Laterality Blood specimen 04/23/2015 4:17 PM 015 4:17 (specimen) EST PM EST Resulting Agency Comment Spec In Lab Joseph Munoz MD CHEMISTRY ORDERABLES Performing Organization Address City/State/[place] [address] BERTO VALE documented in this encounter Visit Diagnoses Not on filedocumented in this encounter Administered Medications Inactive Administered Medications - up to 3 most recent administrations Medication Order MAR Action Action Date Dose Rate Site AMIOdarone (CORDARONE) New Bag 04/23/2015 3:12 PM 1 mg/min 33.3 mL/hr Left Arm 360 mg in dextrose 5% 200 EST mL infusion CONTINUOUS PRN, Starting on Wed04/23/15 at 1512, Until Wed04/23/15 at 1617, Cath (Intra-Procedure) AMIOdarone (CORDARONE) injection Given 04/23/2015 3:08 PM EST 150 mg Left Arm ONCE PRN, Starting on Wed04/23/15 at 1508, Until Wed04/23/15 at 1617, Cath (Intra-Procedure), Routine clopidogrel (PLAVIX) tablet Given 04/23/2015 3:56 PM EST 300 mg ONCE PRN, Starting on Wed04/23/15 at 1556, Until Wed04/23/15 at 1617, Intra-Operative (Intra-Procedure), Routine furosemide (LASIX) injection Given 04/23/2015 3:54 PM EST 20 mg Left Arm ONCE PRN, Starting on Wed04/23/15 at 1554, Until Wed04/23/15 at 1617, Cath (Intra-Procedure), Routine heparin (porcine) injection Given 04/23/2015 3:10 PM EST 7,000 Units ONCE PRN, Starting on Wed04/23/15 at 1510, Until Wed04/23/15 at 1554, Cath (Intra-Procedure), Routine iohexol (OMNIPAQUE) 350 mg/mL solution Given 04/23/2015 3:58 PM EST 130 mLs ONCE PRN, Starting on Wed04/23/15 at 1558, Until Wed04/23/15 at 1617, Cath (Intra-Procedure), Routine lidocaine (XYLOCAINE) 10 mg/mL Given 04/23/2015 2:56 PM 10 mLs Right Lower (1 %) injection EST Quadrant ONCE PRN, Starting on Wed04/23/15 at 1456, Until Wed04/23/15 at 1554, Cath (Intra-Procedure), Routine niCARdipine (CARDENE) in sodium chloride Given 04/23/2015 3:39 P M EST 200 mcg 0.9% injection ONCE PRN, Starting on Wed04/23/15 at 1538, Until Wed04/23/15 at 1554, Intra-Operative (Intra-Procedure), Routine Given 04/23/2015 3:38 PM EST 600 mcg ondansetron (ZOFRAN) injection Given 04/23/2015 3:48 PM EST 4 mg Left Arm ONCE PRN, Starting on Wed04/23/15 at 1548, Until Wed04/23/15 at 1554, Cath (Intra-Procedure), Routine documented in this encounter Active and Recently Administered Medications Times are shown in EST. Scheduled Medication Order 04/24/2015 04/25/2015 04/26/2015 aspirin chewable tablet 81 mg 0865 (Given - Provider: Fercho Guthrie RN) 0810 (Given - Provider: Luciana Minaya RN) 0835 (Given - Provider: Ewa Fraser RN) 81 mg, Oral, DAILY, First dose on Wed at 0900, Until Discontinued, Routine atorvastatin (LIPITOR) tablet 80 mg 1648 (Given - Prov ider: Luciana Minaya RN) 1656 (Given - Provider: Luciana Minaya, RN) 1628 (Giv en - Provider: Ewa Fraser, BLAS) 80 mg, Oral, EVERY EVENING, First dose o n Wed04/23/15 at 1800, Until Discontinued, Routine clopidogrel (PLAVIX) tablet 75 mg 0827 (Given - Provider: Johnny Guthrie RN) 0845 (Given - Provider: Luciana Minaya RN) 0835 (Given - Provider: Ewa Fraser RN) 75 mg, Oral, DAILY, First dose on Wed at 0900, Until Discontinued, Routine docusate sodium (COLACE) capsule 100 mg (CANCELED) 0 0 (Hold - Provider: Fercho Guthrie RN - Reason: See comment - Comment: pt request)2008 (Given - Provider: Sudha Christiansen RN) 0845 (Given - Provider: Luciana Minaya RN)2214 (Given - Provider: Kathy Saucedo, BLAS) 0835 (Given - Provider: Ewa Fraser RN) 100 mg, Oral, 2 TIMES DAILY, First dose on Wed04/23/15 at 2100, Until Discontinued, Routine famotidine (PEPCID) tablet 20 mg (CANCELED) 826 (Give n - Provider: Fercho Guthrie RN)2008 (Given - Provider: Sudha Christiansen RN) 0846 (Given - Provider: Luciana Minaya, BLAS)2213 (Given - Provider: Kathy Saucedo, BLAS) 0839 (Given - Provider: Ewa Fraser RN) 20 mg, Oral, 2 TIMES DAILY, First dose o n Wed04/23/15 at 2100, Until Discontinued, Routine furosemide (LASIX) injection 40 mg (COMPLETED) 2002 (G iven - Provider: Sudha Christiansen RN) 40 mg, Intravenous, ONCE, 1 dose, Wed04/24/15 at 1830 furosemide (LASIX) injection 40 mg (COMPLETED) 2328 (G iven - Provider: Sudha Christiansen, RN) 40 mg, Intravenous, ONCE, 1 dose, Wed04/24/15 at 2345 furosemide (LASIX) injection 40 mg (COMPLETED) 0438 (Given - Provider: Sudha Christiansen, BLAS) 40 mg, Intravenous, ONCE, 1 dose, [facility] 04/25/15 at 0500 letrozole (FEMARA) tablet 2.5 mg (CANCELED) 1144 (Give n - Provider: Luciana Minaya RN) 0845 (Given - Provider: Luciana Minaya, BLAS) 0839 (Giv en - Provider: Ewa Fraser, BLAS) 2.5 mg, Oral, DAILY, First dose on Wed06/24/14 at 1100, Until Discontinued, Routine lidocaine (LIDODERM) 5 %(700 mg/patch) patch 1 patch ( CANCELED) 0828 (Patch Applied - Provider: Fercho Guthrie RN) 0846 (Patch Applied - Provider: Luciana Minaya RN) 0840 (Patch Applied - Provider: Ewa Fraser RN) 1 patch, Transdermal, DAILY, First dose on Wed04/24/15 at 0900, Until Discontinued, Apply patch(es) for 12 hours, and then remove for 12 hours, Routine lisinopril (PRINIVIL;ZESTRIL) tablet 2.5 mg 0827 (Give n - Provider: Fercho Guthrie RN) 0845 (Given - Provider: Luciana Minaya RN) 0839 (Giv en - Provider: Ewa Fraser RN) 2.5 mg, Oral, DAILY, First dose on Wed06/23/14 at 1800, Until Discontinued, Routine meTOPROLOL (LOPRESSOR) pre-split tablet 12.5 mg (CANCE LED) 0600 (Not Given - Provider: Giselle Enciso RN - Reason: Order parameters not met)1331 (Given - Provider: Luciana Minaya RN)2203 (Given - Provider: Sudha Christiansen, BLAS) 0543 (Given - Provider: Sudha Christiansen, BLAS)1314 (Given - Provider: Luciana Minaya RN)2214 (Given - Provider: Kathy Saucedo RN) 0612 (Given - Provider: Kathy Saucedo RN)1342 (Given - Provider: Ewa Fraser RN) 12.5 mg, Oral, EVERY 8 HOURS SCHEDULED, First dose on Wed04/23/15 at 2200, Until Discontinued, Hold if SBP <90 or HR <60, Routine potassium chloride (K-DUR/KLOR-CON) extended release t ablet 40 mEq (CANCELED) 0827 (Given - Provider: Fercho Guthrie RN) 0846 (Given - Provider: Lcuiana Minaya RN) 0835 (Given - Provider: Anh Joyner) 40 mEq, Oral, DAILY, First dose on Wed06/23/14 at 1745, Until Discontinued, Routine sodium chloride 0.9 % flush 5 mL (CANCELED) 0828 (Give n - Provider: Fercho Guthrie, BLAS)2008 (Given - Provider: Sudha Christiansen RN) 0853 (Given - Provider: Luciana Minaay RN)2218 (Given - Provider: Kathy Saucedo RN) 0843 (Given - Provider: Ewa Fraser RN) 5 mL, Intravenous, 2 TIMES DAILY, First dose on Wed04/23/15 at 2100, Until Discontinued, Routine PRN Medication Order 04/24/2015 04/25/2015 04/26/2015 acetaminophen (TYLENOL) tablet 650 mg (CANCELED) 0320 (Given - Provider: Giselle Enciso RN) 0436 (Given - Provider: Anh Menchaca)2215 (Given - Provider: Kathy Saucedo RN) 0842 (Given - Provider: Anh Joyner)1631 (Given - Provider: Ewa Fraser RN) 650 mg, Oral, EVERY 4 HOURS PRN, Startin g Wed04/23/15 at 1500, Until Wed04/26/15 at 1951, Pain, Headaches, Maximum dose of acetaminophen is 4000 mg from all sources in 24 hours., Routine calcium carbonate (TUMS) chewable tablet 500 mg (CANCE LED) 0320 (Given - Provider: Giselle Enciso RN)1000 (Given - Provider: Fercho Guthrie RN) 500 mg, Oral, 3 TIMES DAILY PRN, Startin g Wed04/23/15 at 2054, Until Wed04/26/15 at 1951, Heartburn, Routine nitroGLYcerin (NITROSTAT) SL tablet 0.4 mg 0.4 mg, Sublingual, EVERY 5 MIN PRN, Sta rting Wed04/23/15 at 1458, Until Wed04/26/15 at 1951, Chest pain, May repeat every 5 minutes for a total of three doses. Notify provider if chest pain not relie brook with nitroglycerin. Do not administe r nitroglycerin if the patinet has received or taken phosphodiesterase (PDE-5) inhibitors such as sildenafil, tadalafil or vardenafil within the last 24 to 72 hours., Routine perflutren protein-A microspheres (OPTIS ON) 0.22 mg/mL injection 0.5 mL (COMPLETED) 0900 (Given - Provider: Stefanie Roque) 0.5 mL, Intravenous, ONCE PRN, 1 dose, S tarting Wed04/24/15 at 1008, Until Wed04/24/15 at 0900, for enhancement of sub-optimal echo images, Echo Lab (Intra- Procedure), Routine documented in this encounter Care Teams Embroidery Worker Relationship Specialty Start Date End Date Matt Mcdonnell DO PCP - General 11/15/12 11/29/19 [address] [place] [address] documented as of this encounter
--- OUTSIDE RECORDS SUMMARY | 2022-04-03 12:33 | XMS_ITS | Encounter Summary ---
:1935 Author Organization [facility] [place] [address] Care Team Providers Name Role Phone Matt Mcdonnell DO Primary Care Provider Encounter Details Date Type Department Care Team Description 12/08/2013 [facility] [place] [facility] [address] [place] [address] [phone] Social History Tobacco Use Types Packs/Day [...] Telephone Encounter - Daija N[place] RN - 12/08/2013 2:45 PM EDT Received labs from [facility] - patient's plts are 86k. Patient called with results - she reports that she saw Dr. Mcdonnell who stopped her hydralazine. Started on Diltiazem. Dr. Mcdonnell also reportedly stopped lisinopril x 2 weeks to see if that helps with her SOB. She will also trial being off the Doxazocin x 2 weeks to see if that improves her SOB. PCP wants her to have repeat cbc on 01/01. Dr. Feliciano notified of above. Will follow-up on cbc 01/01 to assess plts. documented in this encounter Plan of Treatment Upcoming Encounters Date Type Specialty Care Team Description 04/06/2022 Appointment Pulmonology 04/06/2022 Office Visit Pulmonology Matt Watson MD [facility] PULMONARY [place], [place] [address] (Wo rk) documented as of this encounter Visit Diagnoses Not on filedocumented in this encounter Care Teams Maintenance Of Way Foreman Relationship Specialty Start Date End Date Matt Mcdonnell DO PCP - General 11/15/12 11/29/19 [address] [place] [address] documented as of this encounter
--- OUTSIDE RECORDS SUMMARY | 2022-04-03 12:33 | XMS_ITS | Encounter Summary ---
:1935 Author Organization [facility] [place] [address] Care Team Providers Name Role Phone FritzMatt hollins Martha KHAN Primary Care Provider Reason for Visit Reason Onset Date Comments Labs Only 07/30/2014 Encounter Details Date Type Department Care Team Description 07/30/2014 Telephone Hematology Oncology at [place], Labs Only Wilson RN [address] [place] [address] [phone] Social History Tobacco Use Types Packs/Day [...] Telephone Encounter - Daija Nj RN - 07/30/2014 4:09 PM EST Received labs from [facility] - plts today are 64k. Patient is doing well. I finally got over my cold. Denies any bleeding or bruising. She states that she has been able to get out some and enjoy the sun when it is warm enough. She will have labs again in 2 weeks, which is prior to her appt with Dr. Feliciano on 08/17. documented in this encounter Plan of Treatment Upcoming Encounters Date Type Specialty Care Team Description 04/06/2022 Appointment Pulmonology 04/06/2022 Office Visit Pulmonology Matt Watson MD [facility] ER PUL[facility]ARY [place], [place] [address] (Wo rk) documented as of this encounter Visit Diagnoses Not on filedocumented in this encounter Care Teams Hand Gluer And Slicer Relationship Specialty Start Date End Date Matt Mcdonnell, PCP - General 11/15/12 11/29/19 [address] [place] [address] documented as of this encounter
--- OUTSIDE RECORDS SUMMARY | 2022-04-03 12:33 | XMS_ITS | Encounter Summary ---
:1935 Author Organization [facility] [place] [address] Care Team Providers Name Role Phone Matt Mcdonnell Martha KHAN Primary Care Provider Encounter Details Date Type Department Care Team Description 09/14/2014 Follow-Up Hematology Oncology Yao Feliciano IT[facility] [address] [place] [phone] ONCOLOGY [phone] [place] [id number] Social History Tobacco Use Types Packs/Day Years [...] Sign Reading Time Taken Comments Blood Pressure 149/66 09/14/2014 10:59 AM EDT Pulse 63 09/14/2014 10:59 AM EDT Temperature 36.3 ??C (97.3 ??F) 09/14/2014 10:59 AM EDT Respiratory Rate 18 09/14/2014 10:59 AM EDT Oxygen Saturation 96% 09/14/2014 10:59 AM EDT Inhaled Oxygen Concentration - - Weight 88.5 kg (195 lb) 09/14/2014 10:59 AM EDT Height 147.3 cm (4' 9.99) 09/14/2014 10:59 AM EDT Body Mass Index 40.77 09/14/2014 10:59 AM EDT documented in this encounter Progress Notes Yao Feliciano MD - 09/14/2014 11:08 AM EDT Subjective: Patient ID: Barbara Casarez is a 78 y.o. female. Problem List: 1. 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 A. Screening mammogram 11/15/12 [...] cancer cells with immunostaining) Stain Intensity: Strong WV immunoreactivity: Positive (>90% cancer cells with immunostaining) [...] Type: Invasive ductal carcinoma Tumor Grade: Low Sgxpxo-Aohje-Qzgdqmrage Score: 5 Tubular Differentiation: 2 Mitotic Rate: 1 Nuclear Grade: 2 Tumor Size: 0.7 cm (maximum diameter) In Situ Histologic Type: Not identified (present in the core bx [id number]) Microcalcifications: Not identified Angiolymphatic Invasion: Not identified [...] 04/07/13 - started femara H. Bilateral mammogram 11/13/13 - negative 2. ITP. A. Found to have low [...] 40 mg per day times 4 days. 3. HTN 4. S/p left knee arthroscopy 12/10 for partially torn meniscus 5. Dexa scan 03/12 - osteopenia of L-spine and proximal femurs. HPI Ms. Casarez returns in f/u of [...] at 40 mg per day. The platelets were rechecked about a week after that was started and had increased to 85,000. The decision was made to observe at that time. The platelet count in 05/13 decreased to 26,000 and she was treated with another course of high dosedexamethasone. On presentation today, she is doing fairly well. Her platelets were lower again this weeks and she is here to talk about treatment. She is not noticing bruising or bleeding. She has been having symptoms of numbness and tingling in her hands in a median nerve distribution. This can be painful for her and she has take aleve for this. In the past, she has tolerated the dex well. She says that she feels high for a few days and then sleeps more for a few days. She is tolerating the femara well. Her appetite is good and her weight is stable. Her energy level is good. She doesn't have any specific complaints. Review of Systems Constitutional: Negative. HENT: Negative. Eyes: Negative. Respiratory: Negative. Cardiovascular: Negative. Gastrointestinal: Negative. Genitourinary: Negative. Musculoskeletal: Positive for arthralgias. Skin: Negative. Neurological: Negative. Psychiatric/Behavioral: Negative. Objective: Physical Exam Constitutional: She is oriented to person, place, and time. She appears well- developed and well-nourished. No distress. HENT: Head: Normocephalic. Eyes: No scleral icterus. Pulmonary/Chest: No respiratory distress. Genitourinary: Breast exam - deferred Musculoskeletal: She exhibits no edema. Neurological: She is alert and oriented to person, place, and time. Coordination normal. Skin: Skin is warm and dry. Psychiatric: She has a normal mood and affect. Her behavior is normal. Vitals reviewed. Labs: (09/11/14) WBC/ANC - 6.09/4199, Hgb/Hct - 13.7/42.6, Plts - 38,000. 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 She was diagnosed in 2012 with cancer of the right breast, pT1bN0. She underwent a partial mastectomy on 01/05/13. We talked about adjuvant systemic therapy when I saw her in 02/10. Chemotherapy was not recommended. The plan was adjuvant radiation, followed by hormonal therapy with an aromatase inhibitor. She completed radiation therapy on 03/31/13. In early 11/13, she began femara, 2.5 mg per day. Thus far, she is tolerating this well and we will plan to continue. I will see her again three months and will recheck the lipid panel. She also has ITP. The platelet count from 11/15/13 had dropped to 36K. She was given a short course of high dose dex at 40 mg per day for 4 days. The platelet count improved to 85K. In 05/13, the platelets decreased to 26k. She was retreated with the same dex dose. She again had a response. Over the course of the past 4 months, the platelet count has decreased and was 38k this week. We have sent in a prescription for another course of high dose dex which she will start today. We will recheck the platelet level next week. It appears that the duration of response is becoming shorter. We have talked about rituxan and did so again today. Because she is a former oncology nurse, she is familiar with thismedication and potential reactions and side effects. She has some reluctance but is willing to go ahead at this time. Her daughter will be visiting 09/28 to 10/05 and she would like to wait until after sheis gone. Given the response she has had in the past to the dex, I think this is ok. We will scheduleher to start on 10/12 and I will see her that day. documented in this encounter Plan of Treatment Upcoming Encounters Date Type Specialty Care Team Description 04/06/2022 Appointment Pulmonology 04/06/2022 Office Visit Pulmonology Matt Watson MD [facility] PULMONARY [place], [place] [address] (Wo rk) documented as of this encounter Procedures Procedure Name Priority Date/Time Associated Diagnosis Comme nts LAB SCAN 09/24/2014 12:00 AM EDT LAB SCAN 09/24/2014 12:00 AM EDT LAB SCAN 09/18/2014 12:00 AM EDT LAB SCAN 09/18/2014 12:00 AM EDT documented in this encounter Results SCAN DOC: LAB (09/24/2014 12:00 AM EDT) Narrative This result has an attachment that is no t available. Scanning Provider MEDIA MGR SCAN EXT ORDR/RSLT SCAN DOC: LAB (09/24/2014 12:00 AM EDT) Narrative This result has an attachment that is no t available. Scanning Provider MEDIA MGR SCAN EXT ORDR/RSLT SCAN DOC: LAB (09/18/2014 12:00 AM EDT) Narrative This result has an attachment that is no t available. Scanning Provider MEDIA MGR SCAN EXT ORDR/RSLT SCAN DOC: LAB (09/18/2014 12:00 AM EDT) Narrative This result has an attachment that is no t available. Scanning Provider MEDIA MGR SCAN EXT ORDR/RSLT documented in this encounter Visit Diagnoses Diagnosis ITP (idiopathic thrombocytopenic purpura ) Immune thrombocytopenic purpura documented in this encounter Care Teams Heat Treater Helper Relationship Specialty Start Date End Date Mtat Mcdonnell DO PCP - General 11/15/12 11/29/19 [address] [place] [address] documented as of this encounter
--- OUTSIDE RECORDS SUMMARY | 2022-04-03 12:33 | XMS_ITS | Encounter Summary ---
:1935 Author Organization [facility] [place] [address] Care Team Providers Name Role Phone FritzMatt hollins Martha KHAN Primary Care Provider Reason for Referral Consultation (Routine) - Specialty Diagnoses / Procedures Referred By Contact Refer red To Contact Diagnoses ST elevation (STEMI) myocardial infarction involving left anterior descending coronary artery Joseph Munoz MD [facility] [place] [address] Referral ID Status Reason Start Date Expiration Date Visits V isits Requested Authorized [id number] Evaluate and 04/26/2015 10/23/2015 36 36 Treat Reason for Visit Auth/Cert - Closed Specialty Diagnoses / Procedures Referred By Contact Refer red To Contact Diagnoses S/P V-FIB ARREST STEMI Procedures CARDIAC CATHETERIZATION Referral ID Status Reason Start Date Expiration Date Visits Requ ested Visits Authorized [id number] Closed 1 1 Encounter Details Date Type Department Care Team Description 04/23/2015 - Hospital Intermediate Joseph Munoz MD [facility] [place] [address] Ventricular fibrillation; 04/26/2015 Encounter Cardiac Care Unit Pedro Luis Ghosh MD [facility] [place] [address] Acute systolic congestive heart failure; Cookie Montoya ITP (idiopath ic thrombocytopenic purpura); [facility] PAF (paroxysmal atrial fibri llation); [facility] ion (STEMI) myocardial infarction involving left anterior [place] [address] Social History Tobacco Use Types Packs/Day Years [...] Barbara Casarez Patient Age: 79 y.o. Language: Ghanaian Race: White Ethnicity: Not nor Admit date: [...] please contact your inpatient physician through the [facility] Gasoline Pump Mechanic . Issues after hours and on weekends [...] was found to have LAD lesion in label operator. History of Presentation: Pt is a 79 YO with PMH of stage 1 Breast CA, ITP controlled with Steroids and Rituxan, HTN who presented from [place] as a STEMI alert. Pt was at OSH for CP that began Wednesday. Came to [facility] today at 0645 am. Initial EKG [...] 75 and heparin 4k and DHART to label operator. Hospital Course: #V fib arrest and STEMI Pt was emergently transferred to the label operator and was found to have an 85% [...] further electrical or mechanical complications from her NM, and was started on lisinopril, metoprolol, plavix, aspirin and lipitor. She was diuresed while in house, however she was oxygenating well while ambulating at time of discharge with no diuretics, so she will not be discharged with any. She has follow up with her head soft sugar operator scheduled in a few weeks already, so will leave further diuresis to his discretion. Will discharge home with cardiac rehab at this time. #ITP Well controlled on rituxan. She needs plavix for 1 year, and would recommend asa81 for her ASCVD, however will defer to Dr. Feliciano (her final cigar and box examiner) with regards to continuing aspirin. #HTN Took [...] and Lab Data: Labs: Recent Labs 04/25/15 0803 04/24/15 0815 [...] BILIDIR 0.1 0.2 Recent Labs 04/24/15 0330 04/23/15212904/23/15 1617 TROPONINT 4.63* 6.43* 0.92* CK 976* 1448* 414* No results for input(s): PHART, RLG3BKM, PO2ART, THR0MBR in the last 168 hours. Studies: Cath [...] at Catheterization: The patient presented with: ST-Elevation NM (STEMI) or equivalent (w/i 7 days). [place] [employer] angina class was IV. This [...] priority for the procedure was Emergent. [facility] procedure was STEMI (Stable [...] 5 mLs by mouth 4 times daily. [id number] Units Quantity: 180 mL Refills: 0 STOPPED [...] take this medication while sittingdown FOLLOW-UP APPOINTMENTS: [employer] Demonstrator: You have an appointment that was previously scheduled with your head soft sugar operator on May 13 Follow-up Appointments Future Appointments Date Time Provider Department Center 07/19/2015 1:30 PM Yao Feliciano MD [facility] General Instructions None Future Appointments and Orders Future Appointments Provider Department Dept Phone 07/19/2015 1:30 PM Yao Feliciano MD Hematology/Oncology [phone] Future Orders Complete By Expires Referral to Cardiac Rehab [[id number] Custom] As directed Process Instructions: If no progress note charted, please enter Clinical details in comments. Scheduling Instructions: Questions: My question or request is: STEMI, cardiac rehab @ [facility] Discharge References/Attachments None documented in this encounter [...] take this medication while sittingdown FOLLOW-UP APPOINTMENTS: [employer] Demonstrator: You have an appointment that was previously scheduled with your head soft sugar operator on May 13 Follow-up Appointments Future Appointments Date Time Provider Department Center 07/19/2015 1:30 PM Yao Feliciano MD [facility] AttachmentsThe following attachments cannot be sent through Care Everywhere.PCI (PERCUTANEOUS CORONARY INTERVENTION) : POST-OP (WOLOF)documented in this encounter Medications at Time of [...] No discharge needs identified at this time. Customs Entry Writer remains available as needed for coordination ofcare and discharge planning. Anticipate discharge home today.An Important Message From Medicare about Your Rights letter reviewed with pt and pt signed acknowledgment and was provided copy. Elza Pride RN, BSN Customs Entry Writer [place] Pager #[phone] Luciana Dennis RN - 04/25/2015 11:58 AM [...] team notified. Plans to assess pt. Joseph Dailey MD - 04/25/2015 7:06 AM EST Cardiology [...] was found to have LAD lesion in label operator. 24 Hour Events: MSK pain from chest compressions -2.5 lisinopril 12.0ptuaqu1 -40 IV lasix at 8pm and at [...] with no hematoma Labs: Recent Labs 04/25/15 0804/24/15 0815 04/23/15 [...] Clopidogrel 300 mg PO administered in the label operator. Continue ASA 81 mg po daily, clopidogrel 75 mg po daily x 12 months. Furosemide 20 mg IV given for LVEDP of 32 mmHg. TREATMENT PLAN: #STEMI -LAD lesion stented in label operator -Aspirin, plavix, atorvastatin 80, BB (hold if [...] tomorrow Provider: DAYANNA PAIGE MD Provider #: [id number] STAFF ADDENDUM Patient interviewed and examined. Medical [...] a later date. Shira Lopez, PT Pager [phone] Jackie Escamilla OT - 04/24/2015 2:19 PM EST OT Note OT consult received. EDH reviewed. Pt presents s/p vfib arrest for STEMI now s/p label operator for LAD stent. Pt has been ambulating [...] would be Wednesday. Jackie Escamilla OTR/L Pager: [phone] Joseph Munoz MD - 04/24/2015 5:08 AM EST Cardiology [...] was found to have LAD lesion in label operator. 24 Hour Events: MSK pain from chest [...] with no hematoma Labs: Recent Labs 04/23/15 1617 WBC 13.2* HGB 12.7 HCT 37.9 PLATELET 82* Recent Labs 04/23/15 1617 MCV 87.3 Recent Labs 04/23/15 2130 04/23/15 1617 NA -- 140 K 4.1 3.3* CL -- 104 CO2 -- 24 BUN -- 14 CREATININE -- 0.81 Recent Labs 04/23/15 1617 CALCIUM 8.0* MAGNESIUM 0.71 PHOS 2.8 Recent Labs 04/23/15 1617 BILITOT 0.7 [...] Clopidogrel 300 mg PO administered in the label operator. Continue ASA 81 mg po daily, clopidogrel 75 mg po daily x 12 months. Furosemide 20 mg IV given for LVEDP of 32 mmHg. TREATMENT PLAN: #STEMI -LAD lesion stented in label operator -Troponin q6 until peak -BNP -CBC, BMP [...] today Provider: DAYANNA PAIGE MD Provider #: [id number] STAFF ADDENDUM Patient interviewed and examined. Medical [...] to SBP >100 Joseph Perales, PGY-2 Pager #[phone] documented in this encounter H&P Notes Joseph Munoz MD - 04/23/2015 2:56 PM EST Cardiology Admission H&P Patient Name: Barbara Casarez Date of : 1935 Age: 79 y.o. Hospital Admit Date: 04/23/2015 Inpatient Attending: Joseph Munoz MD PCP: MATT MCDONNELL DO Presenting Diagnosis/Chief Complaint: Chest pain ID: 79 YOF with HTN, Stage 1 Breast CA, and ITP presented from OSH as a STEMI alert after a Vfib arrest. Pt received eip x1 and defibrillation x 1, lytics, aspirin/plavix were started. Pt achieved ROSCand was transferred here. En route, pt had evolving STEMI and was found to have LAD lesion in label operator. Active Problem List: There are no hospital problems to display for this patient. HPI Pt is a 79 YO with PMH of stage 1 Breast CA, ITP controlled with Steroids and Rituxan, HTN who presented from [place] as a STEMI alert. Pt was at OSH for CP that began Wednesday. Came to [facility] today at 0645 am. Initial EKG [...] 75 and heparin 4k and DHART to label operator. Past Medical History: Past Medical History Diagnosis Date ??? Cancer ??? Hypertension Surgical History/Problems: Past Surgical History Procedure Laterality Date ??? Pro removal of breast lesion 01/05/2013 EXCISION CYST, FIBROADENOMA, ABBERANT BREAST TISSUE,DUCT LESION,NIPPLE OR AREOLAR LESION (LUMPECTOMY) performed by Yakov Beck MD at [facility] MAIN OR ??? Pro mastectomy, partial 01/05/2013 MASTECTOMY PARTIAL performed by Yakov Beck MD at [facility] MAIN OR ??? Pro bx/remv, lymph node, deep axill 01/05/2013 BIOPSY OR EXCISION OF LYMPH NODE(S), OPEN, DEEP AXILLARY NODE(S) performed by Yakov Beck MD at [facility] MAIN OR ??? Pro identify sentinel node 01/05/2013 SENTINEL NODE INJECTION performed by Yakov Beck MD at [facility] MAIN OR Significant Family History: No [...] SYSTEMS: Review of Systems Pt immediately to label operator. Denies CP, endorses nausea in flight, no [...] Clopidogrel 300 mg PO administered in the label operator. Continue ASA 81 mg po daily, clopidogrel [...] TREATMENT PLAN: #STEMI -LAD lesion stented in label operator -Troponin q6 until peak -BNP -CBC, BMP -CXR pending, EKG with resolving ST/T changes, TTE ordered -Cardiac rehab consult -Aspirin 81 mg, plavix 75mg, Atorvastatin 80 mg, (Metoprolol 12.5 q8, prevents cardiac remodeling post NM in addition to BP control) (hold if [...] I would start an GENE before a beta-omra given likely anterior and apical WMA. Plan for an echocardiogram in the morning. documented in this encounter Miscellaneous Notes Initial Assessments - Senait Galindo, PT - 04/26/2015 10:19 AM EST Physical [...] was found to have LAD lesion in label operator. PMH: Past Medical History Diagnosis Date ??? Cancer ??? Hypertension Past Surgical History Procedure Laterality Date ??? Pro removal of breast lesion 01/05/2013 EXCISION CYST, FIBROADENOMA, ABBERANT BREAST TISSUE,DUCT LESION,NIPPLE OR AREOLAR LESION (LUMPECTOMY) performed by Yakov Beck MD at [facility] MAIN OR ??? Pro mastectomy, partial 01/05/2013 MASTECTOMY PARTIAL performed by Yakov Beck MD at [facility] MAIN OR ??? Pro bx/remv, lymph node, deep axill 01/05/2013 BIOPSY OR EXCISION OF LYMPH NODE(S), OPEN, DEEP AXILLARY NODE(S) performed by Yakov Beck MD at [facility] MAIN OR ??? Pro identify sentinel node 01/05/2013 SENTINEL NODE INJECTION performed by Yakov Beck MD at [facility] MAIN OR Interval History: Per chart: Uneventful shift. Soft diastolic BPs, otherwise VSS. Rt groin cath siteWDL. Minor pain r/t chest compressions, relieved with PO tylenol. Social History: Patient lives by herself in a two level home with 1 step, no rail to enter (she usually holds on to [facility]). Patient usually sleep upstairs and uses [...] ambulator without AD. 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 [...] timed interventions: 0 minutes Senait Galindo DPT, THANIA 04/26/2015 Pager: [phone] Physical Therapy Rehabilitation Department Plan of Care - Ewa Fraser RN - 04/26/2015 10:17 AM EST PT alert and oriented, respirations even and unlabored however with ambulation, pt complained of some shortness of breath, after sitting down pt's O2sat%=95 and pt said she felt better. Pt reports shortness of breath with activity is her baseline at home and she adjusts activity accordingly. PT's environmental monitoring specialist read SR with some PACs over night [...] Stabilization antihypertensive medication management Intervention: Dysrhythmia Management 04/26/15133 Cardiac Interventions Dysrhythmia Management anticoagulant management;dysrhythmia medication management Intervention: Functional [place]/Activity Promotion 04/25/152199 Musculoskeletal Interventions Functional [place]/Activity Promotion ambulation to/from bathroom promoted;independence in BADLs promoted Intervention: Self-Care Promotion 04/26/15133 Musculoskeletal Interventions Self-Care Promotion personal/BADL objects within [...] Outcome: Ongoing (Interventions Implemented as Appropriate) 04/25/15 220 Musculoskeletal Interventions Activity/Level of Assistance up in [...] (Interventions Implemented as Appropriate) 04/25/15 0136 Cardiac Catheterization with/without PCI Problems Assessed (Cardiac [...] EVALUATION NOTE: OUTCOME SUMMARY: Pt transferred from [facility]. VSS. A/O. Denies chest pain and [...] in the outpatient cardiac rehabilitation program at [facility] was discussed. Patient agrees to a referral [...] 04/06/2022 Office Visit Pulmonology Matt Watson MD [facility] PULMONARY TURNER [place], [place] [address] (Wo rk) Scheduled Orders Name [...] Name Priority Date/Time Associated Diagnosis Comme nts IT ASSOCIATE SCAN 04/27/2015 12:00 AM EST IT ASSOCIATE SCAN 04/27/2015 12:00 AM EST CARDIAC CATH [...] Routine 04/24/2015 3:30 Results f or this ([facility]) AM EST procedure are i n the [...] Routine 04/23/2015 9:30 Results f or this ([facility]) PM EST procedure are i n the [...] STAT 04/23/2015 4:17 Results f or this ([facility]) PM EST procedure are i n the [...] MEDIA MGR SCAN EXT ORDR/RSLT SCAN DOC: IT ASSOCIATE (04/27/2015 12:00 AM EST) Narrative This result has an attachment that is no t available. Scanning Provider MEDIA MGR SCAN EXT ORDR/RSLT SCAN DOC: IT ASSOCIATE (04/27/2015 12:00 AM EST) Narrative This result [...] 406 ms MUSE SYSTEM (Bezet) Calculated P [place] 55 degrees MUSE SYSTEM Calculated R [place] -72 degrees MUSE SYSTEM Calculated T [place] 60 degrees MUSE SYSTEM INTERPRETATION Normal sinus [...] Organization Address City/State/[place] [address] CERNER MILLENNIUM Potassium (04/25/2015 8:03 AM EST) P athologist Signature Potassium 4.0 3.5 - 5.0 [...] Munoz MD CHEMISTRY ORDERABLES Performing Organization Address City/[facility] Phon e Number [address] CERNER MILLENNIUM Magnesium (04/25/2015 8:03 AM EST) P athologist Signature Magnesium 0.79 0.69 - 1.07 CERNER mmol/L MILLENNIUM Specimen Anatomical Collection Method Collection Time Receive d Time (Source) Location / / Volume Laterality Blood specimen Venous Draw / 04/25/2015 8:03 AM 2014 8:27 (specimen) Unknown EST AM EST Resulting Agency Comment Spec In Lab Joseph Munoz MD CHEMISTRY ORDERABLES Performing Organization Address City/[facility] Phon e Number [address] CERNER MILLENNIUM (ABNORMAL) Differential, [...] Organization Address City/State/ZIP Code Phon e Number [place] [phone] CERNER MILLENNIUM (ABNORMAL) Hemogram (04/25/2015 [...] Organization Address City/State/ZIP Code Phon e Number COOKIE [place] [phone] CERNER MILLENNIUM (ABNORMAL) Basic Metabolic Panel (non-fasting) (04/25/2015 8:03 AM EST) P athologist Signature Glucose Lvl 105 65 - 199 CERNER mg/dL MILLENNIUM Comment: Diabetes: >=200 mg/dL plus symp toms BUN 27 (H) 8 - 18 mg/dL CERNER MILLENNIUM Creatinine 1.21 (H) 0.70 - 1.20 mg/dL CERNER MILL ENNIUM Comment: Please note that the pediatric reference intervals supplied above were not validated at [facility]. Results from pediatri c patients should be [...] the following links into your internet browser. [email or web address] Specimen Anatomical Collection Method Collection Time Receive d Time (Source) Location / / Volume Laterality Blood specimen 04/25/2015 8:03 AM 015 8:27 (specimen) EST AM EST Resulting Agency Comment Spec In Lab Joseph Munoz MD CHEMISTRY ORDERABLES Performing Organization Address City/State/ZIP Code Phon e Number COOK[facility] [place] [address] BERTO MILLENNIUM ECHOCARDIOGRAM COMPLETE W CONTRAST (04/24/2015 10:07 AM EST) P athologist Signature EF 56 HEARTLAB SYSTEM Anatomical Region Laterality Modality Other Specimen (Source) Anatomical Location Collection Method / Collectio n Time Received Time / Laterality Volume 04/24/2015 Narrative 04/24/2015 10:32 AM EST Procedure: ?Transthoracic Echocardiogram Patient: ?IZABELA Rhoades ? (Age): 1935(79y) Med Rec#: ? [id number] ?Sex: ?F ? Site Loc: ? [facility] ?Ht / Wt: ??147(cm)/86(kg) Pt. Loc: ?Cell Stripper Final ?BSA: ?1.78 Study Date: ?? 04/24/2015 ?Pt. Type: Inpatient Tape: ? Referring: Joseph Munoz ([id number]) Referring: ASHISH VALERA A Reading: Pedro Luis Carney ([id number]) Taxicab Starter: Stefanie Roque [facility] Diagnosis: *CAD, unspecified (414.4) CPT Codes: *Echo Full (17730) *Spectral Doppler (94083) *Color Doppler (47771) *Optison (11870GW) Indication: ?? Ventricular fibrillation, Chest pain BP: [...] E-wave Vmax ?0.5 ?m/sec ? MV deceleration oprt323 ?msec ? MV A-wave Vmax ?0.7 ?m/sec [...] ? Mid-Inferior ?Normal ? Mid-Inferoseptal ?Normal ? Inglis-Septal ? Normal ? Inglis-Anterior ? Hypokinetic ? Inglis-Lateral ?Hypokinetic ? Inglis-Inferior ? Hypokinetic ? Inglis-Tip ?Akinetic ? This report has been electronically sign ed by: _ Pedro Luis Carney M.D. ? 04/24/2015 10:31:29 Images reviewed and interpretation verif ied [facility] Cardiac Ultrasound Laboratory Procedure Note Pedro Luis Carney MD - 04/24/2015Formatti ng of this note might be different from the original. Procedure: Transthoracic Echocardiogram Patient: IZABELA AMOR(Age): [birth year](79y) Med Rec#: [id number] Sex: F Site Loc: [facility] Ht / Wt: 147(cm)/86(kg) Pt. Loc: Cell Stripper Final BSA: 1.78 Study Date: 04/24/2015 Pt. Type: Inpatie nt Tape: Referring: Joseph Munoz ([id number]) Referring: ASHISH VALERA A Reading: Pedro Luis Carney ([id number]) Taxicab Starter: Stefanie Roque [facility] Diagnosis: *CAD, unspecified (414.4) CPT Codes: *Echo Full (38495) *Spectral Doppler (43961) *Color Doppler (01289) *Optison (99888BM) Indication: Ventricular fibrillation, Ch est pain BP: [...] MV E-wave Vmax 0.5 m/sec MV deceleration [id number] msec MV A-wave Vmax 0.7 m/sec MV [...] Normal Mid-Posterolateral Normal Mid-Inferior Normal Mid-Inferoseptal Normal Inglis-Septal Normal Inglis-Anterior Hypokinetic Inglis-Lateral Hypokinetic Inglis-Inferior Hypokinetic Inglis-Tip Akinetic This report has been electronically sign ed by: _ Pedro Luis Carney M.D. 04/24/2015 10:31 :29 Images reviewed and interpretation rip vera [facility] Cardiac Ultrasound Laboratory Joseph Munoz MD ECHO ORDERABLES Nucleated Red Blood Cells (04/24/2015 8:15 AM EST) athologist Signature nRBC % Auto 0.0 % [...] Organization Address City/State/[place] [address] CERNER MILLENNIUM Scan, Peripheral Blood (04/24/2015 8:15 AM EST) [facility] gist Method Time Signature Plat Estimate Decreased CERNER MILLENNIUM RBC Morphology Normal CERNER MILLENNIUM Specimen Anatomical Collection Method Collection Time Receive d Time (Source) Location / / Volume Laterality Blood specimen 04/24/2015 8:15 AM 015 8:30 (specimen) EST AM EST Resulting Agency Comment Spec In Lab Joseph Munoz MD HEMATOLOGY ORDERABLES Performing Organization Address City/[facility]/[place] [address] CERNER MILLENNIUM (ABNORMAL) Differential, Automated (04/24/2015 8:15 AM EST) [facility] gist Method Time Signature Neutrophils % 76.9 % [...] Organization Address City/State/[place] [address] CERNER MILLENNIUM (ABNORMAL) Hemogram (04/24/2015 [...] Organization Address City/State/[place] [address] CERNER MILLENNIUM (ABNORMAL) Basic Metabolic Panel (non-fasting) (04/24/2015 8:15 AM EST) athologist Signature Glucose Lvl 100 65 - 199 CERNER mg/dL MILLENNIUM Comment: Diabetes: >=200 mg/dL plus symp toms BUN 20 (H) 8 - 18 mg/dL CERNER MILLENNIUM Creatinine 1.35 (H) 0.70 - 1.20 mg/dL CERNER MILL ENNIUM Comment: Please note that the pediatric reference intervals supplied above were not validated at [facility]. Results from pediatri c patients should be [...] CHONG NIUM Estimated GFR 38 (L) >=60 BERTO Rockwell Comment: This estimated GFR (eGFR) value was [...] the following links into your internet browser. [email or web address] Specimen Anatomical Collection Method Collection Time Receive d Time (Source) Location / / Volume Laterality Blood specimen 04/24/2015 8:15 AM 015 8:30 (specimen) EST AM EST Resulting Agency Comment Spec In Lab Joseph Munoz MD CHEMISTRY ORDERABLES Performing Organization Address City/State/[place] [address] BERTO VALE (ABNORMAL) Cardiac Enzymes (04/24/2015 3:30 AM EST) P athologist Signature Troponin-T 4.63 (H) <=0.03 CERNER ng/mL [facility] Comment: result rechecked-pv 0.03 ng/mL: Represents the [...] consensus document of the Joint Society of Cardiology/[place] [employer] f [employer] Committee for the redefinition of myocardial infarction. ? ?Journal of the [place] College of Cardiology 2000; 36: 959-969] CK, Total 976 (H) 0 - 160 unit/L CERNER MILLENNI UM Specimen Anatomical Collection Method Collection Time Receive d Time (Source) Location / / Volume Laterality Blood specimen Venous Draw / 04/24/2015 3:30 AM 2014 3:35 (specimen) Unknown EST AM EST Resulting Agency Comment Spec In Lab Joseph Munoz MD CHEMISTRY ORDERABLES Performing Organization Address City/[facility]/ZIP Code Phon e Number [address] CERNER MILLENNIUM (ABNORMAL) Glucose, fasting (04/24/2015 3:30 AM EST) P athologist Signature Glucose 151 (H) 65 - 99 CERNER Fasting mg/dL ENNIUM Comment: ?Fasting* Glucose Interpretive C riteria Normal [...] of Diabetes Mellitus, Position Statement from the [place] [employer] Association. ??Diabete s Care, Volume 33, Supplement 1, May 2009 Specimen Anatomical Collection Method Collection Time Receive d Time (Source) Location / / Volume Laterality Blood specimen 04/24/2015 3:30 AM 015 3:35 (specimen) EST AM EST Resulting Agency Comment Spec In Lab Joseph Munoz MD CHEMISTRY ORDERABLES Performing Organization Address City/[facility]/ZIP Code Phon e Number [address] C[facility]ER [facility] Triglyceride (04/24/2015 3:30 AM EST) P athologist Signature Triglycerides 119 <=149 CERNER mg/dL [facility] Comment: Reference Range: Normal triglycerides: ??<150 mg/dL Borderline high: ??150-199 mg/dL High: ??200-499 mg/dL Very high: ??>xd=700 mg/dL CHIDI 2001; 285(19):7703-3176 Specimen Anatomical Collection Method Collection Time Receive d Time (Source) Location / / Volume Laterality Blood specimen 04/24/2015 3:30 AM 015 3:35 (specimen) EST AM EST Resulting Agency Comment Spec In Lab Joseph Munoz MD CHEMISTRY ORDERABLES Performing Organization Address City/[facility] Phon e Number [place] [phone] [facility] (ABNORMAL) HDL/Cholesterol Profile (04/24/2015 3:30 AM EST) athologist Signature Chol, Total 149 <=199 mg/dL [facility] Comment: Recommendations of the NCEP Adult Treatm ent Panel for the following risk cutoff thresholds for the [place] popul[place] n: Desirable: <200 mg/dL Borderline High: 200-239 mg/dL High: > or = 240 mg/dL HDL 29 (L) >=40 mg/dL [facility] Comment: Reference range: ??Low HDL: ?? < 40 mg/dL ??Normal: ?40-60 mg/dL ??Desirable: > 60 mg/dL CHIDI 2001; 285(19):5825-9788 Chol/HDL Ratio 5.1 ratio [facility] Comment: A Cholesterol to HDL ratio below 4:1 is desirable. ??Studies suggest that increased CAD risk occurs at ratios abov e 5 for females and above 6 for men. ? [place] [employer] ??(htt p://www.americanheart.org) ? Barbara Int Med, 1994; 121:641 ? AM J Med, 1998; 105(1A):48S Specimen Anatomical Collection Method Collection Time Receive d Time (Source) Location / / Volume Laterality Blood specimen 04/24/2015 3:30 AM 015 3:35 (specimen) EST AM EST Resulting Agency Comment Spec In Lab Joseph Munoz MD CHEMISTRY ORDERABLES Performing Organization Address City/[facility]/ZIP Code Phon e Number [place] [phone] [facility] (ABNORMAL) LDL Cholesterol, Direct (04/24/2015 3:30 AM EST) P athologist Signature LDL Chol 108 (H) <=99 mg/dL [facility] Direct [facility] Comment: The National Cholesterol Education Progr am (NCEP) has set the following guidelines for LDL Cholesterol: Reference range: ?? Optimal: ?<100 mg/dL ?? Near Optimal/Above Optimal: ?? 100-1 29 mg/dL ?? Borderline high: ?130-159 mg/dL ?? High: ? 160-189 mg/dL ?? Very high: ?>db=906 mg/dL CHIDI 2001: 285(19):3402-7189 Specimen Anatomical Collection Method Collection Time Receive d Time (Source) Location / / Volume Laterality Blood specimen 04/24/2015 3:30 AM 015 3:35 (specimen) EST AM EST Resulting Agency Comment Spec In Lab Joseph Munoz MD CHEMISTRY ORDERABLES Performing Organization Address City/State/ZIP Code Phon e Number [place] [phone] [facility] [facility] (ABNORMAL) Hemoglobin A1c (04/24/2015 3:30 AM EST) Analysis Performed At Patho logist Time Signature Hemoglobin A1C 6.0 (H) 4.3 - 5.6 [facility] % [facility] Comment: Reference Range: 4.3 - 5.6% 5.7 [...] [id number] Est Avg Gluc See note mg/dL [facility] Comment: Estimated Average Glucose not appropriat e [...] with hemoglobinopathies. Additional resources are available on [facility] website: [email or web address] TULSAadacalc Mele SHEPHERD, Juan J, Renetta R, et al. ??Tr anslating the A1C assay into estimated average glucose values. ??Diabetes Care 2008:31(8):6829-5481. Specimen Anatomical Collection Method Collection Time Receive d Time (Source) Location / / Volume Laterality Blood specimen 04/24/2015 3:30 AM 015 3:35 (specimen) EST AM EST Resulting Agency Comment Spec In Lab Joseph Munoz MD CHEMISTRY ORDERABLES Performing Organization Address City/State/[place] [address] [facility] [address] XR Chest Pa or AP- 1 View [...] P athologist Signature Troponin-T 6.43 (H) <=0.03 CERNER ng/mL [facility] Comment: result rechecked-AFP 0.03 ng/mL: Represents the [...] consensus document of the Joint Society of Cardiology/[place] [employer] o f [employer] Committee for the redefinition of myocardial infarction. ? ?Journal of the [place] College of Cardiology 2000; 36: 959-969] CK, Total 1,448 (H) 0 - 160 unit/L CERNER MILLENNI [facility] Comment: result rechecked-AFP Specimen Anatomical Collection Method Collection Time Receive d Time (Source) Location / / Volume Laterality Blood specimen 04/23/2015 9:30 PM 015 9:42 (specimen) EST PM EST Resulting Agency Comment Spec In Lab Joseph Munoz MD CHEMISTRY ORDERABLES Performing Organization Address City/[facility]/ZIP Code Phon e Number [address] CERNER MILLENNIUM Potassium (04/23/2015 [...] Munoz MD CHEMISTRY ORDERABLES Performing Organization Address City/[facility]/ZIP Code Phon e Number [address] CERNER MILLENNIUM EKG 12 Lead (04/23/2015 5:05 PM EST) [facility] gist Method Time Signature Ventricular rate 70 BPM MUSE SYSTEM Atrial Rate 70 BPM MUSE SYSTEM P-R Interval 192 ms MUSE SYSTEM QRS Duration 86 ms MUSE SYSTEM Q-T Interval 478 ms MUSE SYSTEM QTC Calculated 516 ms MUSE SYSTEM (Bezet) Calculated P [place] 55 degrees MUSE SYSTEM Calculated R [place] -72 degrees MUSE SYSTEM Calculated T [place] 102 degrees MUSE SYSTEM INTERPRETATION Sinus rhythm with Premature atrial complexes MUSE SYSTEM Left axis deviation ST elevation in Anterior leads Consider ACUTE NM / ELIZA NM Prolonged QT Abnormal ECG When compared with ECG of 05-JAN-2013 08:44, ST elevation is now Present Confirmed by MD Oskar, Ja ([id number]) on 04/23/2015 8: 55:06 PM Specimen Anatomical Collection Method Collection Time Receive d Time (Source) Location / / Volume Laterality 04/23/2015 5:05 PM 5 8:55 EST PM EST Joseph Munoz MD ECG ORDERABLES Performing Organization Address City/State/ZIP Code Phon e Number MUSE SYSTEM Cardiac Catheterization (04/23/2015 4:17 PM EST) Anatomical Region Laterality Modality Other Specimen (Source) Anatomical Location Collection Method / Collectio n Time Received Time / Laterality Volume Narrative 04/23/2015 4:33 PM EST ?[facility] ? Cardiac Cathete rization/Intervention Report ? Patient Name: Barbara Casarez ? Procedure Date: 04/23/2015 ? A #: [id number] ? Primary Physician: Pedro Luis Justin. ? Case #: [id number] ? File Name: [id number] ? Catheterization Order Number: [id number] ? [facility] ? Final Report [place], [place] ? Patient Name: ? Barbara C. Wiggett ? ID#: ?[id number] ? : ?1935 ? Procedure Date: ? November 24, 20 15 ?Case #: ? [id number] ? Room: ? 1 ? Case Physician: ? Pedro Luis lu, M.D. ?Start: ?14:57 ?Fellow: ? Manolo bowen, M.D. ?Admission: ??04/23/2015 ? Referring ? Matt [...] Catheterization: ?The patient presented with: ST- Elevation NM (STEMI) or equivalent (w/i 7 ?days). [place] [employer] angina class was IV. This [...] 6 Fr. EBU 3.5 ? guide. ??The le wilner was predilated with a 2.00mm TREK 20 MM ? balloon with a maximum inflation pressure of 18 atmospheres. ? A premounted 3. 00 x 33 mm Xience Alpine (MAYANK) was deployed ? with a maximum inflation pressure of 18 atmospheres. ? Following stent deployment, the lesion was dilated using a ? 3.50mm NC TREK 15 MM balloon with a maximum inflation pressure ? of 18 atmospher es. ? The final outco me was defined as successful. A coronary ? [...] 30 0 mg PO administered in the label operator. ?Continue ASA 81 mg po daily, cl opidogrel 75 mg po daily x 12 months. ?Furosemide 20 mg IV given for L VEDP of 32 mmHg. ?The attending physician was presen t for the entire procedure. ?Dr. Pedro Luis [...] note might be different from the original. [facility] Cardiac Catheterization/Intervention Re port Patient Name: Barbara Casarez Procedure Date: 04/23/2015 A #: [id number] Primary Physician: Pedro Luis Justin Case #: [id number] File Name: [id number] Catheterization Order Number: [id number] [facility] Final Report [place], [place] Patient Name: Barbara Casarez ID#: [id number] 11- : 1935 Procedure Date: April 23, 2015 [...] Catheterization: The patient presented with: ST-Elevatio n NM (STEMI) or equivalent (w/i 7 days). [place] [employer] angina class was IV. This [...] Fr Perclose was deployed at the [facility] femoral artery access site. Conclusions: * One [...] Clopidogrel 300 mg PO administered in the label operator. Continue ASA 81 mg po daily, clopidogre [...] Hepatic Function Panel (04/23/2015 4:17 PM EST) athologist Signature Total Protein 5.2 (L) 6.1 - 8.0 CERNER gm/dL [facility] Albumin 3.2 3.2 - 5.2 CERNER gm/dL [facility] AST 54 (H) 0 - 30 CERNER unit/L [facility] ALT 17 0 - 30 CERNER unit/L [facility] Alk Phos 59 40 - 104 CERNER unit/L [facility] Total 0.7 0.2 - 1.3 CERNER Bilirubin mg/dL [facility] Bili, Direct 0.1 0.0 - 0.3 CERNER mg/dL [facility] Specimen Anatomical Collection Method Collection Time Receive d Time (Source) Location / / Volume Laterality Blood specimen Venous Draw / 04/23/2015 4:17 PM 2014 4:23 (specimen) Unknown EST PM EST Resulting Agency Comment Spec In Lab Joseph Munoz MD CHEMISTRY ORDERABLES Performing Organization Address City/State/Z[place] [address] CERNER MILLENNIUM (ABNORMAL) pro-Brain Natriuretic [...] Munoz MD CHEMISTRY ORDERABLES Performing Organization Address City/[facility]/[place] [address] CERNER MILLENNIUM TSH (04/23/2015 4:17 PM EST) P athologist Signature TSH 2.40 0.27 - 4.20 CERNER mcIU/mL [facility] Specimen Anatomical Collection Method Collection Time Receive d Time (Source) Location / / Volume Laterality Blood specimen Venous Draw / 04/23/2015 4:17 PM 2014 4:23 (specimen) Unknown EST PM EST Resulting Agency Comment Spec In Lab Joseph Munoz MD CHEMISTRY ORDERABLES Performing Organization Address City/[facility] Code Phon e Number [address] CERNER MILLENNIUM Phosphorus (04/23/2015 4:17 PM EST) P athologist Signature Phosphorus 2.8 2.5 - 4.5 CERNER mg/dL [facility] Specimen Anatomical Collection Method Collection Time Receive d Time (Source) Location / / Volume Laterality Blood specimen Venous Draw / 04/23/2015 4:17 PM 2014 4:23 (specimen) Unknown EST PM EST Resulting Agency Comment Spec In Lab Joseph Munoz MD CHEMISTRY ORDERABLES Performing Organization Address City/[facility]/ZIP Code Phon e Number [address] CERNER MILLENNIUM Magnesium (04/23/2015 4:17 PM EST) P athologist Signature Magnesium 0.71 0.69 - 1.07 CERNER mmol/L [facility] Specimen Anatomical Collection Method Collection Time Receive d Time (Source) Location / / Volume Laterality Blood specimen Venous Draw / 04/23/2015 4:17 PM 2014 4:23 (specimen) Unknown EST PM EST Resulting Agency Comment Spec In Lab Joseph Munoz MD CHEMISTRY ORDERABLES Performing Organization Address City/[facility]/[place] [address] CERNER MILLENNIUM (ABNORMAL) APTT (04/23/2015 4:17 PM EST) P athologist Signature PTT >160.0 25 - 35 [facility] (Critical) [facility] Comment: Called by: , Read back by: nakita/ravindra torres, Date/Time: 04/23/15 18:06. Recommended therapeutic PTT range for fu ll dose unfractionated heparin is 80-114 seconds. Specimen Anatomical Collection Method Collection Time Receive d Time (Source) Location / / Volume Laterality Blood specimen Venous Draw / 04/23/2015 4:17 PM 2014 4:22 (specimen) Unknown EST PM EST Resulting Agency Comment Spec In Lab Joseph Munoz MD HEMATOLOGY ORDERABLES Performing Organization Address City/[facility]/ZIP Code Phon e Number [address] [facility] (ABNORMAL) Prothrombin Time (04/23/2015 4:17 PM EST) P athologist Signature PT 17.0 (H) 12.0 - 15.0 [facility] Comment: Transfusion Committee Guidelines: INR less than 2.0, PTT less than OR equal to 43.5 seconds, or Fibrinogen greater t nguyễn or equal to 100 mg/dl indicate adequate procoagulant activity for hemos tasis in patients without underlying bleeding disorders. INR 1.4 (H) 0.9 - 1.1 [facility] Specimen Anatomical Collection Method Collection Time Receive d Time (Source) Location / / Volume Laterality Blood specimen Venous Draw / 04/23/2015 4:17 PM 2014 4:22 (specimen) Unknown EST PM EST Resulting Agency Comment Spec In Lab Joseph Munoz MD HEMATOLOGY ORDERABLES Performing Organization Address City/[facility]/ZIP Code Phon e Number [address] [facility] Scan, Peripheral Blood (04/23/2015 4:17 PM EST) Patholo gist Method Time Signature Plat Estimate Decreased [facility] RBC Morphology Normal [facility] Specimen Anatomical Collection Method Collection Time Receive d Time (Source) Location / / Volume Laterality Blood specimen 04/23/2015 4:17 PM 11/24/2 015 4:17 (specimen) EST PM EST Resulting Agency Comment Spec In Lab Joseph Munoz MD HEMATOLOGY ORDERABLES Performing Organization Address City/[facility]/ZIP Code Phon e Number [address] CERNER MILLENNIUM Blue Tube HOLD (04/23/2015 4:17 PM EST) P athologist Signature Blue Hold Sample [facility] Specimen Anatomical Collection Method Collection Time Receive d Time (Source) Location / / Volume Laterality Blood specimen Venous Draw / 04/23/2015 4:17 PM 2014 4:22 (specimen) Unknown EST PM EST Joseph Munoz MD HEMATOLOGY ORDERABLES Performing Organization Address City/[facility]/ZIP Code Phon e Number [address] CERNER MILLENNIUM (ABNORMAL) Differential, Automated (04/23/2015 4:17 PM EST) [facility] gist Method Time Signature Neutrophils % 82.2 [...] Munoz MD HEMATOLOGY ORDERABLES Performing Organization Address City/[facility] [place] [place] [address] CERNER MILLENNIUM (ABNORMAL) Hemogram [...] Munoz MD HEMATOLOGY ORDERABLES Performing Organization Address City/[facility]/[place] [address] CERNER MILLENNIUM (ABNORMAL) Cardiac Enzymes (04/23/2015 4:17 PM EST) athologist Signature Troponin-T 0.92 (H) <=0.03 CERNER ng/mL [facility] Comment: 0.03 ng/mL: Represents the 99th percenti [...] consensus document of the Joint Society of Cardiology/[place] [employer] o f [employer]iology Committee for the redefinition of myocardial infarction. ? ?Journal of the [place] College of Cardiology 2000; 36: 959-969] CK, Total 414 (H) 0 - 160 unit/L [facility] UM Specimen Anatomical Collection Method Collection Time Receive d Time (Source) Location / / Volume Laterality Blood specimen 04/23/2015 4:17 PM 015 4:17 (specimen) EST PM EST Resulting Agency Comment Spec In Lab Joseph Munoz MD CHEMISTRY ORDERABLES Performing Organization Address City/State/[place] [address] [facility] (ABNORMAL) Comprehensive metabolic panel (non-fasting) (04/23/2015 4:17 PM EST) athologist Signature Glucose Lvl 143 65 - 199 CERNER mg/dL [facility] Comment: Diabetes: >=200 mg/dL plus symp toms BUN 14 8 - 18 mg/dL [facility] Creatinine 0.81 0.70 - 1.20 mg/dL [facility] MILL ENNIUM Comment: Please note that the pediatric reference intervals supplied above were not validated at [facility]. Results from pediatri c patients should be [...] M ALT 16 0 - 30 unit/L CERNER MILLENNIU M Alk Phos 61 40 - 104 unit/L CERNER MILLENN IUM Total Bilirubin 0.6 0.2 - 1.3 mg/dL CERNER M ILLENNIUM Bili, Direct 0.2 0.0 - 0.3 mg/dL CERNER MILL ENNIUM Estimated GFR >60 >=60 CERNER MILLENNIU M Comment: This estimated [...] the following links into your internet browser. 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 PAF (paroxysmal atrial fibrillation) Atrial fibrillation ST elevation (STEMI) myocardial infarcti on involving left anterior descending coronary artery Acute myocardial infarction of other ant erior wall, episode of care unspecified documented in this encounter Administered Medications Inactive Administered Medications - up to 3 most recent administrations Medication Order MAR Action Action Date Dose Rate Site acetaminophen (TYLENOL) tablet 650 Given 04/26/2015 4:31 PM EST 650 mg mg 650 mg, Oral, EVERY 4 HOURS PRN, Starting on Wed04/23/15 at 1500, Until Wed04/26/15 at 1951, Pain, Headaches, Maximum dose of acetaminophen is 4000 mg from all sources in 24 hours., Routine Given 04/26/2015 8:42 AM EST 650 mg Given 04/25/2015 10:15 PM EST 650 mg aspirin chewable tablet 81 mg Given 04/26/2015 8:35 AM EST 81 mg 81 mg, Oral, DAILY, First dose on Wed04/24/15 at 0900, Until Discontinued, Routine Given 04/25/2015 8:48 AM EST 81 mg Given 04/24/2015 8:27 AM EST 81 mg atorvastatin (LIPITOR) tablet 80 mg Given 04/26/2015 4:28 PM EST 80 mg 80 mg, Oral, EVERY EVENING, First dose on Wed04/23/15 at 1800, Until Discontinued, Routine Given 04/25/2015 4:56 PM EST 80 mg Given 04/24/2015 4:48 PM EST 80 mg calcium carbonate (TUMS) chewable tablet 500 Given 10:00 AM EST 500 mg mg 500 mg, Oral, 3 TIMES DAILY PRN, Starting on Wed04/23/15 at 2054, Until Wed04/26/15 at 1951, Heartburn, Routine Given 04/24/2015 3:20 AM EST 500 mg clopidogrel (PLAVIX) tablet 75 mg Given 04/26/2015 8:35 AM EST 75 mg 75 mg, Oral, DAILY, First dose on Wed04/24/15 at 0900, Until Discontinued, Routine Given 04/25/2015 8:45 AM EST 75 mg Given 04/24/2015 8:27 AM EST 75 mg docusate sodium (COLACE) capsule 100 mg Given 04/26/2015 8:35 AM EST 100 mg 100 mg, Oral, 2 TIMES DAILY, First dose on Wed04/23/15 at 2100, Until Discontinued, Routine Given 04/25/2015 10:15 PM EST 100 mg Given 04/25/2015 8:45 AM EST 100 mg famotidine (PEPCID) tablet 20 mg Given 04/26/2015 8:39 AM EST 20 mg 20 mg, Oral, 2 TIMES DAILY, First dose on Wed04/23/15 at 2100, Until Discontinued, Routine Given 04/25/2015 10:14 PM EST 20 mg Given 04/25/2015 8:46 AM EST 20 mg furosemide (LASIX) injection 40 mg Given 04/24/2015 8:03 PM EST 40 mg 40 mg, Intravenous, ONCE, 1 dose, On Wed04/24/15 at 1830 furosemide (LASIX) injection 40 mg Given 04/24/2015 11:28 PM EST 40 mg 40 mg, Intravenous, ONCE, 1 dose, On Wed04/24/15 at 2345 furosemide (LASIX) injection 40 mg Given 04/25/2015 4:38 AM EST 40 mg 40 mg, Intravenous, ONCE, 1 dose, On Wed04/25/15 at 0500 letrozole (FEMARA) tablet 2.5 mg Given 04/26/2015 8:39 AM EST 2.5 mg 2.5 mg, Oral, DAILY, First dose on Wed04/24/15 at 1100, Until Discontinued, Routine Given 04/25/2015 8:45 AM EST 2.5 mg Given 04/24/2015 11:44 AM EST 2.5 mg lidocaine (LIDODERM) 5 Patch Applied 04/26/2015 8:40 AM 1 patch 11- Chest (Left) %(700 mg/patch) patch 1 EST patch 1 patch, Transdermal, DAILY, First dose on Wed04/24/15 at 0900, Until Discontinued, Apply patch(es) for 12 hours, and then remove for 12 hours, Routine Patch Applied 04/25/2015 8:46 AM EST 1 patch 11- Chest (Left) Patch Applied 04/24/2015 8:28 AM EST 1 patch 12- Chest (Right) lisinopril (PRINIVIL;ZESTRIL) tablet 2.5 mg Given 04/26/2015 8:39 AM EST 2.5 mg 2.5 mg, Oral, DAILY, First dose on Wed04/23/15 at 1800, Until Discontinued, Routine Given 04/25/2015 8:45 AM EST 2.5 mg Given 04/24/2015 8:27 AM EST 2.5 mg meTOPROLOL (LOPRESSOR) pre-split tablet 12.5 Given 1:42 PM EST 12.5 mg mg 12.5 mg, Oral, EVERY 8 HOURS SCHEDULED, First dose on Wed04/23/15 at 2200, Until Discontinued, Hold if SBP <90 or HR <60, Routine Given 04/26/2015 6:12 AM EST 12.5 mg Given 04/25/2015 10:14 PM EST 12.5 mg perflutren protein-A microspheres (OPTISON) Given 04/01 9:00 AM EST 0.5 mLs 0.22 mg/mL injection 0.5 mL 0.5 mL, Intravenous, ONCE PRN, 1 dose, Starting on Wed04/24/15 at 1008, Until Wed04/24/15 at 0900, for enhancement of sub-optimal echo images, Echo Lab (Intra-Procedure), Routine potassium chloride (K-DUR/KLOR-CON) extended Given 8:35 AM EST 40 mEq release tablet 40 mEq 40 mEq, Oral, DAILY, First dose on Wed04/23/15 at 1745, Until Discontinued, Routine Given 04/25/2015 8:46 AM EST 40 mEq Given 04/24/2015 8:27 AM EST 40 mEq sodium chloride 0.9 % flush 5 mL Given 04/26/2015 8:43 AM EST 5 mLs 5 mL, Intravenous, 2 TIMES DAILY, First dose on Wed04/23/15 at 2100, Until Discontinued, Routine Given 04/25/2015 10:18 PM EST 5 mLs Given 04/25/2015 8:53 AM EST 10 mLs documented in this encounter Active and Recently Administered Medications Times are shown in EST. Scheduled Medication Order 04/24/2015 04/25/2015 04/26/2015 aspirin chewable tablet 81 mg 0827 (Given - Provider: Indclarice Guthrie RN) 0848 (Given - Provider: Luciana Minaya RN) 0835 (Given - Provider: Ewa Fraser RN) 81 mg, Oral, DAILY, First dose on Wed at 0900, Until Discontinued, Routine atorvastatin (LIPITOR) tablet 80 mg 1648 (Given - Prov ider: Luciana Minaya RN) 1656 (Given - Provider: Luciana Minaya, RN) 1628 (Giv en - Provider: Ewa Fraser RN) 80 mg, Oral, EVERY EVENING, First [...] Luciana Minaya, BLAS)2213 (Given - Provider: Kathy Saucedo RN) 0839 (Given - Provider: Ewa Fraser RN) 20 mg, Oral, 2 TIMES DAILY, First dose o n Wed04/23/15 at 2100, Until Discontinued, Routine furosemide (LASIX) injection 40 mg (COMPLETED) 2002 (G iven - Provider: Sudha Christiansen RN) 40 mg, Intravenous, ONCE, 1 dose, Wed04/24/15 at 1830 furosemide (LASIX) injection 40 mg (COMPLETED) 2328 (G iven - Provider: Sudha Christiansen, BLAS) 40 mg, Intravenous, ONCE, 1 dose, Wed04/24/15 at 2345 furosemide (LASIX) injection 40 mg (COMPLETED) 0438 (Given - Provider: Sudha Christiansen, BLAS) 40 mg, Intravenous, ONCE, 1 dose, [facility] 04/25/15 at 0500 letrozole (FEMARA) tablet 2.5 mg (CANCELED) 1144 (Give n - Provider: Luciana Minaya RN) 0845 (Given - Provider: Luciana Minaya, BLAS) 0839 (Giv en - Provider: Ewa Fraser [...] Saucedo RN) 0612 (Given - Provider: Kathy Saucedo, BLAS)1342 (Given - Provider: Ewa Fraser RN) 12.5 mg, Oral, EVERY 8 HOURS SCHEDULED, First dose on Wed04/23/15 at 2200, Until Discontinued, Hold if SBP <90 or HR <60, Routine potassium chloride (K-DUR/KLOR-CON) extended release t ablet 40 mEq (CANCELED) 0827 (Given - Provider: Fercho Guthrie, BLAS) 0846 (Given - Provider: Luciana Minaya, RN) 0835 (Given - Provider: Anh Joyner) 40 mEq, Oral, DAILY, First dose on Wed06/23/14 at 1745, Until Discontinued, Routine sodium chloride 0.9 % flush 5 mL (CANCELED) 0828 (Give n - Provider: Fercho Guthrie, BLAS)2008 (Given - Provider: Sudha Christiansen RN) 0853 (Given - Provider: Luciana Minaya, BLAS)2218 (Given - Provider: Kathy Saucedo RN) 0843 [...] Provider: Giselle Enciso RN)1000 (Given - Provider: Indie L Jerri, RN) 500 mg, Oral, 3 TIMES DAILY [...] Routine documented in this encounter Care Teams Window Draper Relationship Specialty Start Date End Date Matt Mcdonnell DO PCP - General 11/15/12 11/29/19 [address] [place] [address] documented as of this encounter
--- OUTSIDE RECORDS SUMMARY | 2022-04-03 12:33 | XMS_ITS | Encounter Summary ---
:1935 Author Organization [facility] Address [address] [place] [address] Care Team Providers Name Role Phone Matt Mcdonnell Martha KHAN Primary Care Provider Encounter Details Date Type Department Care Team Description 04/12/2015 Office Visit Hematology/Oncology Yao Gray ITP ( idiopathic thrombocytopenic purpura); at [facility] MD Marisela Breast cancer, female, right; [address] [facility] Breast cancer, unspecified l aterality [place], [place] CENTER [address] ONCOLOGY [phone] [place] [address] Social History Tobacco Use Types Packs/Day Years [...] Sign Reading Time Taken Comments Blood Pressure 110/58 04/12/2015 12:52 PM EST Pulse 67 04/12/2015 12:52 PM EST Temperature 36.6 ??C (97.9 ??F) 04/12/2015 12:52 PM EST Respiratory Rate 16 04/12/2015 12:52 PM EST Oxygen Saturation 97% 04/12/2015 12:52 PM EST Inhaled Oxygen Concentration - - Weight 85.7 kg (189 lb) 04/12/2015 12:52 PM EST Height 147.3 cm (4' 9.99) 04/12/2015 12:52 PM EST Body Mass Index 39.51 04/12/2015 12:52 PM EST documented in this encounter Progress Notes Yao Gray MD - 04/11/2015 12:31 PM EST Subjective: Patient ID: Barbara Casarez is a 79 y.o. female. Problem List: 1. 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 On presentation today, she is feeling ok. She has continued knee and shoulder pain. This is about the same. She is getting arthrovisc for the knee. Her appetite is good. Her weight is lower. Her energylevel is fairly good. She had cautery of the nasal septum by Dr. Fry yesterday. Review of Systems Constitutional: Negative. HENT: Negative. [...] is normal. Vitals reviewed. Labs: WBC/ANC - 6.07/4199, Hgb/Hct - 13.3/41.2, Plts -118,000. Date Plts 03/28/15 98k 03/01/15 92k 01/31/15 100k 01/03/14 [...] some fluctuation, has been stable for the last several weeks. We will continue to monitor. We will check the platelets every 4 weeks and I will see her in about 3 months. documented in this encounter Miscellaneous Notes Addendum Note - Yao Gray MD - 04/12/2015 1:39 PM EST Addended by: YAO GRAY on: 04/12/2015 01:39 PM Modules accepted: Orders documented in this encounter Plan of Treatment Upcoming Encounters Date Type Specialty Care Team Description 04/06/2022 Appointment Pulmonology 04/06/2022 Office Visit Pulmonology Matt Watson MD [facility] PUL[facility] [place], [place] [address] (Wo rk) documented as of this encounter Procedures Procedure Name Priority Date/Time Associated Diagnosis Comme nts LAB SCAN 07/18/2015 12:00 AM EST LAB SCAN 05/10/2015 12:00 AM EST DIAGNOSTIC RADIOLOGY 04/05/2015 12:00 AM SCAN EST DIAGNOSTIC RADIOLOGY 04/05/2015 12:00 AM SCAN EST documented in this encounter Results SCAN DOC: LAB (07/18/2015 12:00 AM EST) Narrative This result has an attachment that is no t available. Scanning Provider MEDIA MGR SCAN EXT ORDR/RSLT SCAN DOC: LAB (05/10/2015 12:00 AM EST) Narrative This result has an attachment that is no t available. Scanning Provider MEDIA MGR SCAN EXT ORDR/RSLT SCAN DOC: DIAGNOSTIC RADIOLOGY (04/05/2015 12:00 AM EST) Narrative This result has an attachment that is no t available. Scanning Provider MEDIA MGR SCAN EXT ORDR/RSLT SCAN DOC: DIAGNOSTIC RADIOLOGY (04/05/2015 12:00 AM EST) Narrative This result has an attachment that is no t available. Scanning Provider MEDIA MGR SCAN EXT ORDR/RSLT documented in this encounter Visit Diagnoses Diagnosis ITP (idiopathic thrombocytopenic purpura ) Immune thrombocytopenic purpura Breast cancer, female, right Breast cancer, unspecified laterality documented in this encounter Care Teams Button Machine Operator Relationship Specialty Start Date End Date Matt Mcdonnell DO PCP - General 11/15/12 11/29/19 [address] [place] [address] documented as of this encounter
--- OUTSIDE RECORDS SUMMARY | 2022-04-03 12:33 | XMS_ITS | Encounter Summary ---
:1935 Author Organization [facility] [place] [address] Care Team Providers Name Role Phone RoMatt dejesus Martha KHAN Primary Care Provider Encounter Details Date Type Department Care Team Description 04/23/2015 Hospital Encounter DHART at at [facility], Card iac arrest; Jan Foley MD ST elevation myocardial infarction (STEM I) of anterolateral wall; One [facility] fi brillation, unspecified Drive [address] [place] CARDIOLOGY DEPT. [address] [place], [place] [phone] [address] Social History Tobacco Use Types Packs/Day Years [...] Start Date End Date atorvastatin (LIPITOR) 80 mg Take 1 tablet [...] tablet 11 06/04/2016 Tablet mouth daily. lisinopril (PRINIVIL;ZESTRIL) Take 1 tablet by 30 tablet 11 04/26/2015 06/04/2016 5 mg Tablet mouth daily. meTOPROLOL succinate Take 1 tablet by 30 tablet 12 5 06/04/2016 (TOPROL-XL) 50 mg Tablet mouth daily. Sustained Release 24 hr letrozole (FEMARA) 2.5 mg Take 1 tablet by 90 tablet 3 03/3104/14/2016 TabletIndications: Breast mouth daily. cancer, unspecified laterality nystatin (MYCOSTATIN) 100,000 Take 5 mLs by 180 mL 0 07/19/2015 unit/mL mouth 4 times SuspensionIndications: ITP daily. (idiopathic thrombocytopenic purpura), Thrush DILTiazem (CARDIZEM CD) 240 Take 240 mg by 0 04/26/2015 mg Capsule, Sust. Release 24 mouth daily. hr hydrochlorothiazide Take 25 mg by 0 (HYDRODIURIL) 25 mg tablet mouth daily. doxazosin (CARDURA) 2 mg Take 4 mg by 0 04/26/2015 tablet mouth nightly. acetaminophen (TYLENOL) 325 Take 2 tablets 30 tablet 1 12/201206/04/2016 mg tablet by mouth every 4 hours as needed for Pain. bisoprolol-hydrochlorothiazid 0 200904/26/2015 e (ZIAC) 10-6.25 mg per tablet documented as of this encounter Plan of Treatment Upcoming Encounters Date Type Specialty Care Team Description 04/06/2022 Appointment Pulmonology 04/06/2022 Office Visit Pulmonology Matt Watson MD [facility] PULMONARY [place], [place] [address] (Wo rk) documented as of this encounter Visit Diagnoses Diagnosis Cardiac arrest ST elevation myocardial infarction (STEM I) of anterolateral wall Acute myocardial infarction of anterolat eral wall, episode of care unspecified Atrial fibrillation, unspecified documented in this encounter Care Teams Baster Hand Relationship Specialty Start Date End Date Matt Mcdonnell DO PCP - General 11/15/12 11/29/19 [address] [place] [address] documented as of this encounter
--- OUTSIDE RECORDS SUMMARY | 2022-04-03 12:33 | XMS_ITS | Encounter Summary ---
:1935 Author Organization [facility] [place] [address] Care Team Providers Name Role Phone RoMatt dejesus Martha KHAN Primary Care Provider Encounter Details Date Type Department Care Team Description 01/04/2015 Follow-Up Hematology/Oncology Yao Feliciano ITP ( idiopathic thrombocytopenic purpura); at [facility] MD Marisela Breast cancer, female, right; [address] [facility] [phone] ONCOLOGY [phone] [place], [place] [address] Social History Tobacco Use Types [...] Sign Reading Time Taken Comments Blood Pressure 135/68 01/04/2015 12:50 PM EDT Pulse 59 01/04/2015 12:50 PM EDT Temperature 36.4 ??C (97.5 ??F) 01/04/2015 12:50 PM EDT Respiratory Rate 18 01/04/2015 12:50 PM EDT Oxygen Saturation 98% 01/04/2015 12:50 PM EDT Inhaled Oxygen Concentration - - Weight 88.9 kg (196 lb) 01/04/2015 12:50 PM EDT Height 147.3 cm (4' 9.99) 01/04/2015 12:50 PM EDT Body Mass Index 40.98 01/04/2015 12:50 PM EDT documented in this encounter Progress Notes Yao Feliciano MD - 01/03/2015 8:51 AM EDT Subjective: Patient ID: Barbara Casarez is a 79 y.o. female. Problem List: 1. 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 A. Screening mammogram 11/15/12 [...] cancer cells with immunostaining) Stain Intensity: Strong DE immunoreactivity: Positive (>90% cancer cells with immunostaining) [...] Type: Invasive ductal carcinoma Tumor Grade: Low Rkaxtf-Hlefx-Bjxtaumlym Score: 5 Tubular Differentiation: 2 Mitotic Rate: 1 Nuclear Grade: 2 Tumor Size: 0.7 cm (maximum diameter) In Situ Histologic Type: Not identified (present in the core bx [id number]) Microcalcifications: Not identified Angiolymphatic Invasion: Not identified [...] She has continued knee and shoulder pain. The left shoulder is a bit better with improved ROM. 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 Her appetite is good and her weight is stable. Her energy level is good. She had cautery of the nasal [...] No scleral icterus. Pulmonary/Chest: No respiratory distress. Abdominal: She exhibits no distension. Genitourinary: Breast exam - Deferred. Musculoskeletal: She exhibits no edema. Neurological: She is alert and oriented to person, place, and time. Coordination normal. Skin: Skin is warm and dry. Psychiatric: She has a normal mood and affect. Her behavior is normal. Vitals reviewed. Labs: WBC/ANC - 6.07/4199, Hgb/Hct - 13.3/41.2, Plts -118,000. Date Plts 01/03/14 118k 12/20/14 102k 12/06/14 120k 11/22/14 [...] will plan to continue. The f/u mammogram shows an indeterminate area in the left breast and further imaging was recommended. This was done on 12/03/14 and thankfully showed no evidence of malignancy. She also has ITP. The platelet count [...] I will see her in about 3 months with a dexa scan prior. documented in this encounter Plan of Treatment Upcoming Encounters Date Type Specialty Care Team Description 04/06/2022 Appointment Pulmonology 04/06/2022 Office Visit Pulmonology Matt Watson MD [facility] PULMONARY [place], [place] [address] (Wo rk) documented as of this encounter Procedures Procedure Name Priority Date/Time Associated Diagnosis Comme nts LAB SCAN 03/28/2015 12:00 AM EDT LAB SCAN 03/01/2015 12:00 AM EDT LAB SCAN 01/31/2015 12:00 AM EDT LAB SCAN 01/03/2015 12:00 AM EDT documented in this encounter Results SCAN DOC: LAB (03/28/2015 12:00 AM EDT) Narrative This result has an attachment that is no t available. Scanning Provider MEDIA MGR SCAN EXT ORDR/RSLT SCAN DOC: LAB (03/01/2015 12:00 AM EDT) Narrative This result has an attachment that is no t available. Scanning Provider MEDIA MGR SCAN EXT ORDR/RSLT SCAN DOC: LAB (01/31/2015 12:00 AM EDT) Narrative This result has an attachment that is no t available. Scanning Provider MEDIA MGR SCAN EXT ORDR/RSLT SCAN DOC: LAB (01/03/2015 12:00 AM EDT) Narrative This result has an attachment that is no t available. Scanning Provider MEDIA MGR SCAN EXT ORDR/RSLT documented in this encounter Visit Diagnoses Diagnosis ITP (idiopathic thrombocytopenic purpura ) Immune thrombocytopenic purpura Breast cancer, female, right Osteopenia Disorder of bone and cartilage, unspecif ied documented in this encounter Care Teams Sleeping Room Cleaner Relationship Specialty Start Date End Date Matt Mcdonnell DO PCP - General 11/15/12 11/29/19 [address] [place] [address] documented as of this encounter
--- OUTSIDE RECORDS SUMMARY | 2022-04-03 12:33 | XMS_ITS | Encounter Summary ---
:1935 Author Organization [facility] [address] Care Team Providers Name Role Phone RoMatt dejesus Primary Care Provider Encounter Details Date Type Department Care Team Description 12/03/2014 [facility] Mammography at [facility], DR RENAE Mammograph ic Encounter [facility] Yao Feliciano MD [facility] [place] [address] [place] [phone] Social History Tobacco Use Types Packs/Day Years [...] Sig Dispensed Refills Start Date End Date CALCIUM CARBONATE/VITAMIN D3 0 010 (CALCIUM 600 WITH VITAMIN D3 ORAL) multivitamin (THERAGRAN) 0 02/25/2010 tablet mupirocin (BACTROBAN) 2 % Apply topically 3 0 01/04/2015 Ointment times daily. nystatin (MYCOSTATIN) Take 5 mLs by 180 mL 0 09/24/2014 07/19/2015 100,000 unit/mL mouth 4 times SuspensionIndications: ITP daily. (idiopathic thrombocytopenic purpura), Thrush letrozole (FEMARA) 2.5 mg Take 1 tablet by 90 tablet 3 07/3004/12/2015 TabletIndications: Breast mouth daily. cancer, unspecified laterality DILTiazem (CARDIZEM CD) 240 Take 240 mg by 0 04/26/2015 mg Capsule, Sust. Release 24 mouth daily. hr hydrochlorothiazide Take 25 mg by 0 (HYDRODIURIL) 25 mg tablet mouth daily. doxazosin (CARDURA) 2 mg Take 4 mg by 0 04/26/2015 tablet mouth nightly. acetaminophen (TYLENOL) 325 Take 2 tablets by 30 tablet 1 0 01/05/2013 06/04/2016 mg tablet mouth every 4 hours as needed for Pain. bisoprolol-hydrochlorothiazi 0 010 04/26/2015 de (ZIAC) 10-6.25 mg per tablet documented as of this encounter Plan of Treatment Upcoming Encounters Date Type Specialty Care Team Description 04/06/2022 Appointment Pulmonology 04/06/2022 Office Visit Pulmonology Matt Watson MD [facility] PULMONARY [place], [place] [address] (Wo rk) documented as of this encounter Procedures Procedure Name Priority Date/Time Associated Diagnosis Comme nts MAMMO CALL BACK Routine 12/03/2014 1:46 Mammographic Results f or this DIAGNOSTIC EXTRA PM EDT microcalcification proce dure are in VIEW UNILATERAL the results section. documented in this encounter Results Mammo call back diagnostic extra view unilateral (12/03/2014 1:46 PM EDT) Anatomical Region Laterality Modality Breast N/A Mammography Specimen (Source) Anatomical Collection Method Collection Time Re ceived Time Location / / Volume Laterality 12/03/2014 1:46 PM EDT Impressions 12/03/2014 1:56 PM EDT IMPRESSION: No mammographic evidence of malignancy w ith additional imaging of the left breast. Resume routine screening. BI-RADS 1 negative. Narrative 12/03/2014 1:56 PM EDT EXAMINATION: CALL BACK DX EXTRA VIEW UNILAT/LEFT CLINICAL HISTORY: Abnormal Screening TECHNIQUE: Spot compression magnification CC and sp ot compression magnification true lateral views in addition to a standard true lateral view of the left breast using 2-D imaging. COMPARISON: 11/19/2014 FINDINGS: There is no evidence of suspicious micro calcification or soft tissue density. The questioned area may have reflected c ompression variation or debris on the skin. However, with additional imaging t here are no suspicious microcalcifications identified. Procedure Note Flora Curry MD - 12/03/2014Form atting of this note might be different from the original. EXAMINATION: CALL BACK DX EXTRA VIEW UNI LAT/LEFT CLINICAL HISTORY: Abnormal Screening TECHNIQUE: Spot compression magnification CC and sp ot compression magnification true lateral views in addition to a standard true lateral view of the left breast using 2-D imaging. COMPARISON: 11/19/2014 FINDINGS: There is no evidence of suspicious micro calcification or soft tissue density. The questioned area may have reflected c ompression variation or debris on the skin. However, with additional imaging t here are no suspicious microcalcifications identified. IMPRESSION IMPRESSION: No mammographic evidence of malignancy w ith additional imaging of the left breast. Resume routine screening. BI-RADS 1 negative. Ana Plascencia MD IMG MAMMO ORDERABLES documented in this encounter Visit Diagnoses Diagnosis Mammographic microcalcification documented in this encounter Care Teams Milk Deliverer Relationship Specialty Start Date End Date Matt Mcdonnell DO PCP - General 11/15/12 11/29/19 [address] [place] [address] documented as of this encounter
--- OUTSIDE RECORDS SUMMARY | 2022-04-03 12:33 | XMS_ITS | Encounter Summary ---
:1935 Author Organization [facility] [place] [address] Care Team Providers Name Role Phone Matt Mcdonnell Primary Care Provider Reason for Visit Reason Comments Breast Cancer Thrombocytopenia Encounter Details Date Type Department Care Team Description 05/18/2014 Follow-Up Hematology Oncology Yao Feliciano neoplasm of right female breast; at [facility] MD Marisela ITP (idiopathic thrombocytopenic purpura ) [address] [place] [phone] ONCOLOGY [phone] [place], [place] [address] Social History Tobacco Use Types [...] Sign Reading Time Taken Comments Blood Pressure 131/65 05/18/2014 1:01 PM EST Pulse 62 05/18/2014 1:01 PM EST Temperature 36.5 ??C (97.7 ??F) 05/18/2014 1:01 PM EST Respiratory Rate 16 05/18/2014 1:01 PM EST Oxygen Saturation 98% 05/18/2014 1:01 PM EST Inhaled Oxygen Concentration - - Weight 86.4 kg (190 lb 8 oz) 05/18/2014 1:01 PM EST Height - - Body Mass Index 39.83 02/10/2013 9:05 AM EDT documented in this encounter Progress Notes Yao Feliciano MD - 05/18/2014 8:34 AM EST Subjective: Patient ID: Barbara Casarez is a 78 y.o. female. Problem List: 1. Cancer of the right breast, [id number], stage IA, low grade, ER/AL positive, Her-2/veronica negative. A. Screening mammogram 11/15/12 [...] cancer cells with immunostaining) Stain Intensity: Strong AL immunoreactivity: Positive (>90% cancer cells with immunostaining) [...] Type: Invasive ductal carcinoma Tumor Grade: Low Aiwcju-Pjkte-Fudmtiepwm Score: 5 Tubular Differentiation: 2 Mitotic Rate: 1 Nuclear Grade: 2 Tumor Size: 0.7 cm (maximum diameter) In Situ Histologic Type: Not identified (present in the core bx [id number]) Microcalcifications: Not identified Angiolymphatic Invasion: Not identified [...] made to observe at that time. The most recent platelet count had decreased to 26,000 and on 05/16, she began another course of high dose dexamethasone. On presentation today, she is doing fairly well. Prior to having the plt count checked, she says shehad been congested and noticed some blood when she blew her nose. That has improved. No other bruising or bleeding. She tolerates the steroids well. She is no longer taking ASA although takes aleve on occasion. Her appetite is good and her weight is stable. Her energy level is good. Review of Systems Constitutional: Negative. HENT: Negative. Eyes: Negative. Respiratory: Negative. Cardiovascular: Negative. Gastrointestinal: Negative. Genitourinary: Negative. Musculoskeletal: Positive for arthralgias. Skin: Negative. Neurological: Negative. Psychiatric/Behavioral: Negative. Objective: Physical Exam Constitutional: She is oriented to person, place, and time. She appears well- developed and well-nourished. No distress. HENT: Head: Normocephalic. Mouth/Throat: Oropharynx is clear and moist. No oropharyngeal exudate. Eyes: No scleral icterus. Cardiovascular: Normal rate and regular rhythm. Pulmonary/Chest: Effort normal and breath sounds normal. No respiratory distress. Abdominal: Soft. Bowel sounds are normal. She exhibits no distension and no mass. There is no tenderness. There is no guarding. Genitourinary: Breast exam - no discrete masses noted in either breast. No skin dimpling or puckering and no nippledischarge. Musculoskeletal: She exhibits no edema. Lymphadenopathy: She has no cervical adenopathy. She has no axillary adenopathy. Right: No supraclavicular adenopathy present. Left: No supraclavicular adenopathy present. Neurological: She is alert and oriented to person, place, and time. Coordination normal. Skin: Skin is warm and dry. Psychiatric: She has a normal mood and affect. Her behavior is normal. Vitals reviewed. Labs: (05/15/14) WBC/ANC - 6.07/3999, Hgb/Hct - 14/43.3, Plts - 26,000. BUN/Cr - 21/0.9. K - 3.1. Lytes and LFTs o/w unremarkable. Chol - 186/HDL - 42/LDL - 128. Trig - 82 Assessment and Plan: Ms. Casarez is a [...] count from 11/15/13 had dropped to 36K. We decided to treat with a short course of high dose dex at 40 mg per day for 4 days. The platelet count improved to 85K. We the elected to observe her. The platelets have decreased to 50,000. The platelet count on 05/15/14 had decreased to 26k and she has started another short course of high dose dex. She tolerates this well and clinically feels that it has helped already. We are going to recheck the plt count in 2 and 4 weeks. Depending on the response, we may consider a second pulse of dex. We would like to see her plt count get back up the 80-90 range with this. We talked about rituxan. 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 I will see her again in three months but again, we will be following up with her before then regarding the plts. documented in this encounter Plan of Treatment Upcoming Encounters Date Type Specialty Care Team Description 04/06/2022 Appointment Pulmonology 04/06/2022 Office Visit Pulmonology Matt Watson MD [facility] PULMONARY [place], [place] [address] (Wo rk) documented as of this encounter Procedures Procedure Name Priority Date/Time Associated Diagnosis Comme nts LAB SCAN 08/13/2014 12:00 AM EDT LAB SCAN 07/30/2014 12:00 AM EST LAB SCAN 07/30/2014 12:00 AM EST LAB SCAN 07/16/2014 12:00 AM EST LAB SCAN 07/02/2014 12:00 AM EST LAB SCAN 07/02/2014 12:00 AM EST LAB SCAN 06/18/2014 12:00 AM EST LAB SCAN 06/04/2014 12:00 AM EST LAB SCAN 06/04/2014 12:00 AM EST documented in this encounter Results SCAN DOC: LAB (08/13/2014 12:00 AM EDT) Narrative This result has an attachment that is no t available. Scanning Provider MEDIA MGR SCAN EXT ORDR/RSLT SCAN DOC: LAB (07/30/2014 12:00 AM EST) Narrative This result has an attachment that is no t available. Scanning Provider MEDIA MGR SCAN EXT ORDR/RSLT SCAN DOC: LAB (07/30/2014 12:00 AM EST) Narrative This result has an attachment that is no t available. Scanning Provider MEDIA MGR SCAN EXT ORDR/RSLT SCAN DOC: LAB (07/16/2014 12:00 AM EST) Narrative This result has an attachment that is no t available. Scanning Provider MEDIA MGR SCAN EXT ORDR/RSLT SCAN DOC: LAB (07/02/2014 12:00 AM EST) Narrative This result has an attachment that is no t available. Scanning Provider MEDIA MGR SCAN EXT ORDR/RSLT SCAN DOC: LAB (07/02/2014 12:00 AM EST) Narrative This result has an attachment that is no t available. Scanning Provider MEDIA MGR SCAN EXT ORDR/RSLT SCAN DOC: LAB (06/18/2014 12:00 AM EST) Narrative This result has an attachment that is no t available. Scanning Provider MEDIA MGR SCAN EXT ORDR/RSLT SCAN DOC: LAB (06/04/2014 12:00 AM EST) Narrative This result has an attachment that is no t available. Scanning Provider MEDIA MGR SCAN EXT ORDR/RSLT SCAN DOC: LAB (06/04/2014 12:00 AM EST) Narrative This result has an attachment that is no t available. Scanning Provider MEDIA MGR SCAN EXT ORDR/RSLT documented in this encounter Visit Diagnoses Diagnosis Malignant neoplasm of right female breas t Malignant neoplasm of breast (female), u nspecified site ITP (idiopathic thrombocytopenic purpura ) Immune thrombocytopenic purpura documented in this encounter Care Teams Dolphin Researcher Relationship Specialty Start Date End Date Matt Mcdonnell DO PCP - General 11/15/12 11/29/19 [address] [place] [address] documented as of this encounter
--- OUTSIDE RECORDS SUMMARY | 2022-04-03 12:33 | XMS_ITS | Encounter Summary ---
:1935 Author Organization [facility] [place] [place] [address] Care Team Providers Name Role Phone Matt Mcdonnell DO Primary Care Provider Encounter Details Date Type Department Care Team Description 11/20/2014 Orders Only Radiology [facility] [address] micro[address] if[address] Ana Rockwell MD [facility] [id number] [place] [phone] DIAGNOSTIC RADIOLOGY [place], [place] [address] Social History Tobacco Use Types [...] Pulmonology Matt Watson MD [facility] PULMONARY [place] Pat[place], [place] [address] (Wo rk) documented as of this encounter Results Mammo call back diagnostic [...] this encounter Visit Diagnoses Diagnosis Mammographic microcalcification Mammographic microcalcification documented in this encounter Care Teams Profiler Operator Relationship Specialty Start Date End Date Matt Mcdonnell DO PCP - General 11/15/12 11/29/19 [address] [place] [address] documented as of this encounter
--- OUTSIDE RECORDS SUMMARY | 2022-04-03 12:33 | XMS_ITS | Encounter Summary ---
:1935 Author Organization [facility] [place] [address] Care Team Providers Name Role Phone Fritzgunjan Matt Thomas DO Primary Care Provider Encounter Details Date Type Department Care Team Description 07/16/2014 [facility] [address] [place], [place] [phone] Social History Tobacco Use Types Packs/Day [...] Telephone Encounter - Daija Nj RN - 07/16/2014 3:20 PM EST Received labs from [facility] - Plts today are 67k. Reviewed with Dr. Feliciano who would like patient to haverepeat cbc in 2 weeks. Telephone call to Barbara to review results and plan. She is doing well and has no concerns. Will have labs in 2 weeks (07/30) at [facility]. She has appt with Dr. Feliciano scheduled for 08/17 and will have labs againprior to that appt. documented in this encounter Plan of Treatment Upcoming Encounters Date Type Specialty Care Team Description 04/06/2022 Appointment Pulmonology 04/06/2022 Office Visit Pulmonology Matt Watson MD [facility] PULMONARY [place], [place] [address] (Wo rk) documented as of this encounter Visit Diagnoses Not on filedocumented in this encounter Care Teams Cycle Director Relationship Specialty Start Date End Date Matt Mcdonnell, PCP - General 11/15/12 11/29/19 [address] [place] [address] documented as of this encounter
--- OUTSIDE RECORDS SUMMARY | 2022-04-03 12:33 | XMS_ITS | Encounter Summary ---
:1935 Author Organization [facility] [address] Care Team Providers Name Role Phone RoMatt dejesus Primary Care Provider Encounter Details Date Type Department Care Team Description 2014 Follow-Up Hematology/Oncology Yao Feliciano cancer, female, right; at [facility] MD Marisela ITP (idiopathic thrombocytopenic purpura ) [address] [facility] [address] ONCOLOGY [phone] [place], [place] [address] Social History Tobacco Use Types [...] Sign Reading Time Taken Comments Blood Pressure 124/52 2014 10:24 AM EDT Pulse 60 2014 10:24 AM EDT Temperature 36.7 ??C (98.1 ??F) 2014 10:24 AM EDT Respiratory Rate 20 2014 10:24 AM EDT Oxygen Saturation 99% 2014 10:24 AM EDT Inhaled Oxygen Concentration - - Weight 89.4 kg (197 lb) 2014 10:24 AM EDT Height 147.3 cm (4' 9.99) 2014 10:24 AM EDT Body Mass Index 41.18 2014 10:24 AM EDT documented in this encounter Progress Notes Yao Feliciano MD - 2014 7:58 AM EDT Subjective: Patient ID: Barbara Casarez is a 79 y.o. female. Problem List: 1. 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 A. Screening mammogram 11/15/12 [...] cancer cells with immunostaining) Stain Intensity: Strong MN immunoreactivity: Positive (>90% cancer cells with immunostaining) [...] Type: Invasive ductal carcinoma Tumor Grade: Low Opuxpj-Pjgfn-Qfkwkyakap Score: 5 Tubular Differentiation: 2 Mitotic Rate: 1 Nuclear Grade: 2 Tumor Size: 0.7 cm (maximum diameter) In Situ Histologic Type: Not identified (present in the core bx [id number]) Microcalcifications: Not identified Angiolymphatic Invasion: Not identified [...] patient's age and breast cancer risk factors. 2. ITP. A. Found to have low [...] presentation today, she is feeling ok. She saw Dr. Fry for the bleeding in her nose. She saw Dr. Mason and was told that this was either a strep or staph infection. She is using bactroban and it has helped. She will see him again next week. The URI symptoms are better as well. No f/c/s. She tolerated the rituxan well. The shoulder pain is about the same and is both shoulders. 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 Her appetite is good and her weight is stable. Her energy level is good. She is concerned about the mammogram report but doesn't have any other specific complaints. Review of Systems Constitutional: Negative. HENT: Negative. Eyes: Negative. Respiratory: Negative. Cardiovascular: Negative. Gastrointestinal: Negative. Genitourinary: Negative. Musculoskeletal: Positive for arthralgias. Skin: Negative. Neurological: Negative. Psychiatric/Behavioral: Negative. Objective: Physical Exam Constitutional: She is oriented to person, place, and time. She appears well- developed and well-nourished. No distress. HENT: Head: Normocephalic. Mouth/Throat: Oropharynx is clear and moist. No oropharyngeal exudate. Septal mucosa appears improved, not completely healed. Eyes: No scleral icterus. Cardiovascular: Normal rate and regular rhythm. Pulmonary/Chest: Effort normal and breath sounds normal. No respiratory distress. Abdominal: Soft. Bowel sounds are normal. She exhibits no distension and no mass. There is no tenderness. There is no guarding. Genitourinary: Breast exam - No discrete masses noted in either breast. Musculoskeletal: She exhibits no edema. Lymphadenopathy: She has no cervical adenopathy. She has no axillary adenopathy. Right: No supraclavicular adenopathy present. Left: No supraclavicular adenopathy present. Neurological: She is alert and oriented to person, place, and time. No cranial nerve deficit. Coordination normal. Skin: Skin is warm and dry. Psychiatric: She has a normal mood and affect. Her behavior is normal. Vitals reviewed. Labs: WBC/ANC - 6.09/4499, Hgb/Hct - 13.8/42.6, Plts -111,000. Bun/Cr - 15/0.93. Glucose - 147, K - 3.2. Lytes and LFTs o/w unremarkable Date Plt 11/22/14 111k 11/01/14 116k 10/25/14 58k 10/18/14 92k 10/11/14 114k - started rituxan 09/24/14 92k 09/18/14 54k 09/11/14 38k [...] left breast and further imaging was recommended. That is scheduled for 12/03/14. She also has ITP. The platelet count [...] on 11/02/14. The platelet count has increased and is about the same as it was 3 weeks ago. We will monitor. I will plan to f/u on the repeat breast imaging and will also recheck the plt count in 2 weeks. I will see her in about 6 weeks. documented in this encounter Plan of Treatment Upcoming Encounters Date Type Specialty Care Team Description 04/06/2022 Appointment Pulmonology 04/06/2022 Office Visit Pulmonology Matt Watson MD [facility] PULMONARY [place] Patel [place], [place] [address] (Wo rk) documented as of this encounter Procedures Procedure Name Priority Date/Time Associated Diagnosis Comme nts LAB SCAN 12/20/2014 12:00 AM EDT LAB SCAN 12/06/2014 12:00 AM EDT documented in this encounter Results SCAN DOC: LAB (12/20/2014 12:00 AM EDT) Narrative This result has an attachment that is no t available. Scanning Provider MEDIA MGR SCAN EXT ORDR/RSLT SCAN DOC: LAB (12/06/2014 12:00 AM EDT) Narrative This result has an attachment that is no t available. Scanning Provider MEDIA MGR SCAN EXT ORDR/RSLT documented in this encounter Visit Diagnoses Diagnosis Breast cancer, female, right ITP (idiopathic thrombocytopenic purpura ) Immune thrombocytopenic purpura documented in this encounter Care Teams System Support Developer Relationship Specialty Start Date End Date Matt Mcdonnell DO PCP - General 11/15/12 11/29/19 [address] [place] [address] documented as of this encounter
--- OUTSIDE RECORDS SUMMARY | 2022-04-03 12:33 | XMS_ITS | Encounter Summary ---
:1935 Author Organization [facility] [place] [address] Care Team Providers Name Role Phone Matt Mcdonnell DO Primary Care Provider Encounter Details Date Type Department Care Team Description 09/11/2014 Telephone Hematology Oncology at Parvin Marques RN [place] [phone] Social History Tobacco Use Types Packs/Day [...] Telephone Encounter - Parvin Marques RN - 09/11/2014 11:52 AM EDT [facility] lab called. Barbara's platelet count was 38. Informed Dr. Feliciano. documented in this encounter Plan of Treatment Upcoming Encounters Date Type Specialty Care Team Description 04/06/2022 Appointment Pulmonology 04/06/2022 Office Visit Pulmonology Matt Watson MD [facility] ER PULMONARY [place], [place] [address] (Wo rk) documented as of this encounter Visit Diagnoses Not on filedocumented in this encounter Care Teams Assistant Housekeeping Manager Relationship Specialty Start Date End Date Matt Mcdonnell DO PCP - General 11/15/12 11/29/19 [address] [place] [address] documented as of this encounter
--- OUTSIDE RECORDS SUMMARY | 2022-04-03 12:33 | XMS_ITS | Encounter Summary ---
:1935 Author Organization [facility] Address [address] [place] [address] Care Team Providers Name Role Phone Matt Mcdonnell Martha KHAN Primary Care Provider Reason for Visit Reason Comments Breast Cancer Encounter Details Date Type Department Care Team Description 08/17/2014 Follow-Up Hematology Oncology Yao Feliciano ITP ( idiopathic thrombocytopenic purpura); at [facility] MD Marisela Malignant neoplasm of female breast, rig ht; [address] [place] [address] Drive [facility] Breast cancer, unspecified l aterality [place], [place] [facility] [address] ONCOLOGY [phone] [place] [id number] Social History Tobacco Use Types Packs/Day Years [...] Sign Reading Time Taken Comments Blood Pressure 137/60 08/17/2014 2:01 PM EDT Pulse 61 08/17/2014 2:01 PM EDT Temperature 36.7 ??C (98.1 ??F) 08/17/2014 2:01 PM EDT Respiratory Rate 16 08/17/2014 2:01 PM EDT Oxygen Saturation 99% 08/17/2014 2:01 PM EDT Inhaled Oxygen Concentration - - Weight 88.7 kg (195 lb 8 oz) 08/17/2014 2:01 PM EDT Height - - Body Mass Index 40.87 02/10/2013 9:05 AM EDT documented in this encounter Progress Notes Yao Feliciano MD - 08/17/2014 12:06 PM EDT Subjective: Patient ID: Barbara Casarez is a 78 y.o. female. Problem List: 1. Cancer of the right breast, [id number], stage IA, low grade, ER/SC positive, Her-2/veronica negative. A. Screening mammogram 11/15/12 [...] cancer cells with immunostaining) Stain Intensity: Strong SC immunoreactivity: Positive (>90% cancer cells with immunostaining) [...] Type: Invasive ductal carcinoma Tumor Grade: Low Aiphjx-Cymld-Coskcjifqd Score: 5 Tubular Differentiation: 2 Mitotic Rate: 1 Nuclear Grade: 2 Tumor Size: 0.7 cm (maximum diameter) In Situ Histologic Type: Not identified (present in the core bx [id number]) Microcalcifications: Not identified Angiolymphatic Invasion: Not identified [...] presentation today, she is doing fairly well. She tolerates the dex well. She says that she feelshigh for a few days and then sleeps more for a few days. She is not noticing any bruising or bleeding. She is tolerating the femara well. Her [...] Her behavior is normal. Vitals reviewed. Labs: (08/13/14) WBC/ANC - 8.09/5799, Hgb/Hct - 14/43.7, Plts - 54,000. Date Plt 08/13/14 54k 07/30/14 64k 07/16/14 67k 07/02/14 [...] retreated with the same dex dose. She has again had a response. The platelet count is decreasing again. For now, we will follow this and will check the platelet count aboutevery 4 weeks. We have talked about rituxan. 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 I will see her again in three monthsbut again, we will be following up with her before then regarding the plts. documented in this encounter Miscellaneous Notes Addendum Note - Daija Nj RN - 08/17/2014 3:10 PM EDT Addended by: DAIJA NJ on: 08/17/2014 03:10 PM Modules accepted: Orders documented in this encounter Plan of Treatment Upcoming Encounters Date Type Specialty Care Team Description 04/06/2022 Appointment Pulmonology 04/06/2022 Office Visit Pulmonology Matt Watson MD [facility] [address] [place], [place] [address] (Wo rk) documented as of this encounter Procedures Procedure Name Priority Date/Time Associated Diagnosis Comme nts LAB SCAN 09/11/2014 12:00 AM EDT documented in this encounter Results SCAN DOC: LAB (09/11/2014 12:00 AM EDT) Narrative This result has an attachment that is no t available. Scanning Provider MEDIA MGR SCAN EXT ORDR/RSLT documented in this encounter Visit Diagnoses Diagnosis ITP (idiopathic thrombocytopenic purpura ) Immune thrombocytopenic purpura Malignant neoplasm of female breast, rig ht Breast cancer, unspecified laterality documented in this encounter Care Teams Knitter Hand Relationship Specialty Start Date End Date Matt Mcdonnell DO PCP - General 11/15/12 11/29/19 [address] [place] [address] documented as of this encounter
--- OUTSIDE RECORDS SUMMARY | 2022-04-03 12:33 | XMS_ITS | Encounter Summary ---
:1935 Author Organization [facility] [place] [address] Care Team Providers Name Role Phone Kecia Matt Thomas DO Primary Care Provider Encounter Details Date Type Department Care Team Description 06/04/2014 [facility] [address] [place] [phone] Social History Tobacco Use Types Packs/Day [...] Telephone Encounter - Daija Nj RN - 06/04/2014 3:04 PM EST Received labs from [facility] - plts are 187k on repeat review (originally reported as 213k).. Reviewed with Dr. Feliciano - sarthak again in 2 weeks. Telephone call to Barbara to inform her of her platelets. She is on Zithromax for an upper respiratory infection. Will have labs again in 2 weeks ([place] 1/19). Instructed Barbara to call with any questions/concerns. documented in this encounter Plan of Treatment Upcoming Encounters Date Type Specialty Care Team Description 04/06/2022 Appointment Pulmonology 04/06/2022 Office Visit Pulmonology Matt Watson MD [facility] PULMONARY [place] Patel [place], [place] [address] (Wo rk) documented as of this encounter Visit Diagnoses Not on filedocumented in this encounter Care Teams A Auxiliary Relationship Specialty Start Date End Date Matt Mcdonnell DO PCP - General 11/15/12 11/29/19 [address] [place] [address] documented as of this encounter
--- OUTSIDE RECORDS SUMMARY | 2022-04-03 12:33 | XMS_ITS | Encounter Summary ---
:1935 Author Organization [place] [address] Care Team Providers Name Role Phone FritzmarthaManuelMatt Martha KHAN Primary Care Provider Reason for Visit Reason Comments Other Encounter Details Date Type Department Care Team Description 12/07/2014 Telephone Hematology/Oncology at Marleni Joshi RN [place] [phone] Social History Tobacco Use Types Packs/Day [...] this encounter Miscellaneous Notes Telephone Encounter - Marleni Joshi RN - 12/07/2014 12:46 PM EDT ----- Message from Catherine Akers sent at 12/07/2014 11:47 AM EDT ----- Regarding: please call Barbara ring stating that Dr. Feliciano asked her to call today for her lab results. She had blood work done yesterday at [facility], this is in [place]. She asked if someone could call her back by 1:15 as she is leaving [place]. Betzaida- Catherine Reviewed lab results with Dr. Feliciano. He was pleased that her platelets went up to 120 K. He would like to have her repeat labs in 2 weeks. Telephone call to patient to let her know her lab results. She was happy that her platelets have gone up. She states that she knew that she should have them repeated in 2 weeks. documented in this encounter Plan of Treatment Upcoming Encounters Date Type Specialty Care Team Description 04/06/2022 Appointment Pulmonology 04/06/2022 Office Visit Pulmonology Matt Watson MD [facility] ER [place]UL[place]ARY [place], [place] [address] (Wo rk) documented as of this encounter Visit Diagnoses Not on filedocumented in this encounter Care Teams Hot Top Liner Relationship Specialty Start Date End Date Matt Mcdonnell DO PCP - General 11/15/12 11/29/19 [address] [place] [address] documented as of this encounter
--- OUTSIDE RECORDS SUMMARY | 2022-04-03 12:33 | XMS_ITS | Encounter Summary ---
:1935 Author Organization [facility] [place] [address] Care Team Providers Name Role Phone Fritzgunjan Matt Thomas DO Primary Care Provider Encounter Details Date Type Department Care Team Description 09/18/2014 Telephone Hematology Oncology at [facility] Nj Johnsbury RN [address] [place], [place] [phone] Social History Tobacco Use Types Packs/Day [...] Telephone Encounter - Daija Nj RN - 09/18/2014 1:34 PM EDT Received labs from [facility] - plts today are 54k. Reviewed with Dr. Feliciano who would like to recheck cbc/d in one week - on Sunday 09/24. Call to patient with results of labs and Dr. Feliciano's recommendations for labs in one week. Barbara denies bleeding/bruising and agrees with this plan. documented in this encounter Plan of Treatment Upcoming Encounters Date Type Specialty Care Team Description 04/06/2022 Appointment Pulmonology 04/06/2022 Office Visit Pulmonology Matt Watson MD [facility] ER PULMONARY [place], [place] [address] (Wo rk) documented as of this encounter Visit Diagnoses Not on filedocumented in this encounter Care Teams Legal Aid Relationship Specialty Start Date End Date Matt Mcdonnell, PCP - General 11/15/12 11/29/19 [address] [place] [address] documented as of this encounter
--- OUTSIDE RECORDS SUMMARY | 2022-04-03 12:33 | XMS_ITS | Encounter Summary ---
:1935 Author Organization [facility] [place] [address] Care Team Providers Name Role Phone Matt Mcdonnell Primary Care Provider Reason for Visit Reason Comments IV Medication Rituxan Encounter Details Date Type Department Care Team Description 10/26/2014 Infusion Hematology Oncology CLINIC, DR MILLER HEM/O [place] ITP (idiopathic at [facility], Yao Antonio MD [facility] [place] [address] thrombocytopenic purpura) [address] [place] [phone] Social History Tobacco Use Types Packs/Day [...] Sign Reading Time Taken Comments Blood Pressure 136/50 10/26/2014 12:21 PM EDT Pulse 65 10/26/2014 12:21 PM EDT Temperature 36.9 ??C (98.5 ??F) 10/26/2014 12:21 PM EDT Respiratory Rate - - Oxygen Saturation 96% 10/26/2014 12:21 PM EDT Inhaled Oxygen Concentration - - Weight - - Height - - Body Mass Index - - documented in this encounter Progress Notes Marilia Jay RN - 10/26/2014 11:24 AM EDT INFUSION THERAPY ADMINISTRATION NOTES DIAGNOSIS: ITP CYCLE #: week #3 REASON FOR VISIT: Rituxan SUBJECTIVE Barbara offers no complaints. OBJECTIVE LAB DATA: IV ACCESS: PIV Pre administration: Rituxan orders independently verified for drug name, route, and dosage per patient's height, weight and BSA by Marilia Jay RN and Karely Segura [facility]. Rituxan given at Rapid Rate per protocol. REACTIONS (DESCRIPTION, TIME, INTERVENTION AND EFFECTIVENESS) none ASSESSMENT Barbara was awake, alert and tolerated treatment well. PLAN Return to clinic per routine. documented in this encounter Plan of Treatment Upcoming Encounters Date Type Specialty Care Team Description 04/06/2022 Appointment Pulmonology 04/06/2022 Office Visit Pulmonology Matt Watson MD [facility] ER PULMONARY [place], [place] [address] (Wo rk) documented as of this encounter Visit Diagnoses Diagnosis ITP (idiopathic thrombocytopenic purpura ) Immune thrombocytopenic purpura documented in this encounter Administered Medications Inactive Administered Medications - up to 3 most recent administrations Medication Order MAR Action Action Date Dose Rate Site acetaminophen (TYLENOL) tablet Given 10/26/2014 10:46 AM EDT 650 mg 650 mg 650 mg, Oral, ONCE, 1 dose, On Wed10/26/14 at 1100, Maximum dose of acetaminophen is 4000 mg from all sources in 24 hours. Prior to riTUXimab., Routine dexamethasone (DECADRON) injection 10 mg Given 10/26/2014 10:47 AM EDT 10 mg 10 mg, Intravenous, ONCE, 1 dose, On Wed10/26/14 at 1100, Prior to riTUXimab., Routine diphenhydrAMINE (BENADRYL) capsule 25 mg Given 10/26/2014 10:47 AM EDT 25 mg 25 mg, Oral, ONCE, 1 dose, On Wed10/26/14 at 1100, Prior to riTUXimab., Routine riTUXimab (RITUXAN) 700 mg in sodium New Bag 10/26/2014 11:54 AM E DT 700 mg chloride 0.9% 350 mL infusion 700 mg, Intravenous, ONCE, 1 dose, On Wed10/26/14 at 1100 documented in this encounter Care Teams Clerk Specialist Relationship Specialty Start Date End Date Matt Mcdonnell DO PCP - General 11/15/12 11/29/19 [address] [place] [address] documented as of this encounter
--- OUTSIDE RECORDS SUMMARY | 2022-04-03 12:33 | XMS_ITS | Encounter Summary ---
:1935 Author Organization [facility] [place] [address] Care Team Providers Name Role Phone Matt Mcdonnell Primary Care Provider Reason for Visit Reason Comments Thrombocytopenia Rituxan Encounter Details Date Type Department Care Team Description 10/19/2014 Infusion Hematology Oncology CLINIC, DR MILLER HEM/O [place] ITP (idiopathic at [facility], Yao Antonio MD [facility] [place] [address] thrombocytopenic purpura) [address] [place] [phone] Social History Tobacco Use Types Packs/Day [...] documented as of this encounter Progress Notes Yancy Arce - 10/19/2014 2:29 PM EDT INFUSION THERAPY ADMINISTRATION NOTES DIAGNOSIS: ITP CYCLE #: weekly x 4 (/) REASON FOR VISIT: Rituxan SUBJECTIVE Barbara offers no complaints. Benadryl 50 mg IVP changed to 25 mg PO. Tolerated Rituxan w/o any complaints. OBJECTIVE LAB DATA: 10/18/14 WBC 9.8 Hgb 14.1 Plt 92 IV ACCESS: Left PIV BLOOD RETURN: yes + ANY S/S OF INFECTION/EXTRAVASATIONS: none IV FLUSHED WITH: Normal Saline IV DISCONTINUED: yes Pre administration: Chemotherapy orders independently verified for drug name, route, and dosage per patient's height, weight and BSA by BLAS Phillips and Fatimah Chapman RN REACTIONS (DESCRIPTION, TIME, INTERVENTION AND EFFECTIVENESS) none ASSESSMENT Barbara was awake, alert and she tolerated treatment well. PLAN Return to clinic per routine. documented in this encounter Plan of Treatment Upcoming Encounters Date Type Specialty Care Team Description 04/06/2022 Appointment Pulmonology 04/06/2022 Office Visit Pulmonology Matt Watson MD [facility] ER PULMONARY TURNER Patel [place], [place] [address] (Wo rk) documented as of this encounter Visit Diagnoses Diagnosis ITP (idiopathic thrombocytopenic purpura ) Immune thrombocytopenic purpura documented in this encounter Administered Medications Inactive Administered Medications - up to 3 most recent administrations Medication Order MAR Action Action Date Dose Rate Site acetaminophen (TYLENOL) tablet Given 10/19/2014 11:11 AM EDT 650 mg 650 mg 650 mg, Oral, ONCE, 1 dose, On Wed10/19/14 at 1100, Maximum dose of acetaminophen is 4000 mg from all sources in 24 hours. Prior to riTUXimab., Routine dexamethasone (DECADRON) injection 10 mg Given 10/19/2014 11:13 AM EDT 10 mg 10 mg, Intravenous, ONCE, 1 dose, On Wed10/19/14 at 1100, Prior to riTUXimab., Routine diphenhydrAMINE (BENADRYL) capsule 25 mg Given 10/19/2014 11:11 AM EDT 25 mg 25 mg, Oral, ONCE, 1 dose, On Wed10/19/14 at 1130, Prior to riTUXimab., Routine riTUXimab (RITUXAN) 700 mg in New Bag 10/19/2014 11:53 AM EDT 700 mg 50 mL/hr sodium chloride 0.9% 350 mL infusion 700 mg, Intravenous, ONCE, 1 dose, On Wed10/19/14 at 1100 documented in this encounter Care Teams Mechanical Technical Service Specialist Relationship Specialty Start Date End Date Matt Mcdonnell DO PCP - General 11/15/12 11/29/19 [address] [place] [address] documented as of this encounter
--- OUTSIDE RECORDS SUMMARY | 2022-04-03 12:33 | XMS_ITS | Encounter Summary ---
:1935 Author Organization [facility] [place] [address] Care Team Providers Name Role Phone Matt Mcdonnell DO Primary Care Provider Encounter Details Date Type Department Care Team Description 04/20/2014 [facility] [address] [place], [place] [phone] Social History Tobacco Use Types Packs/Day [...] Telephone Encounter - Daija Nj RN - 04/20/2014 12:54 PM EST Received labs from [facility] - plts 51k. Reviewed with Dr. Feliciano. Left message for patient to call clinic to review her labs. Barbara has appt with Dr. Feliciano in April. documented in this encounter Plan of Treatment Upcoming Encounters Date Type Specialty Care Team Description 04/06/2022 Appointment Pulmonology 04/06/2022 Office Visit Pulmonology Matt Watson MD [facility] ER DR ANEESH Patel [place], [place] [address] (Wo rk) documented as of this encounter Visit Diagnoses Not on filedocumented in this encounter Care Teams Inspecting And Testing Lead Hand Relationship Specialty Start Date End Date Matt Mcdonnell DO PCP - General 11/15/12 11/29/[address] [place] [id number] documented as of this encounter
--- OUTSIDE RECORDS SUMMARY | 2022-04-03 12:33 | XMS_ITS | Encounter Summary ---
:1935 Author Organization [facility] [place] [address] Care Team Providers Name Role Phone Matt Mcdonnell Primary Care Provider Reason for Visit Reason Comments Thrombocytopenia rituxan # 1 Encounter Details Date Type Department Care Team Description 10/12/2014 Infusion Hematology Oncology at CLINIC, DR CLAY (idiopathic [facility] HEM/ONC thrombocytopenic purpura) [address] [place] [phone] Social History Tobacco Use Types Packs/Day [...] documented as of this encounter Progress Notes Aleah Figueroa RN - 10/12/2014 2:31 PM EDT INFUSION THERAPY ADMINISTRATION NOTES TIME TREATMENT STARTED: 1114 TIME TREATMENT ENDED: 1534 DIAGNOSIS: thrombocytopenia PROTOCOL:na CYCLE #: week # 1 REASON FOR VISIT: rituxan SUBJECTIVE Barbara Rhoades Daphnejuliachanel offers no complaints. OBJECTIVE LAB DATA: Labs reviewed and found adequate for treatment. plt 114 Pre administration: Chemotherapy orders independently verified for drug name, route, and dosage per patient's height, weight and BSA by Rafael Figueroa RN and Marge Garcia pharmacist Patient states she has written information about rituxan already and does not want anymore. Discharge booklet given with our number and ry. Pt aware she can call with any questions or concerns. REACTIONS (DESCRIPTION, TIME, INTERVENTION AND EFFECTIVENESS) none ASSESSMENT Barbara Casarez was awake, alert and he tolerated treatment well. PLAN Return to clinic next week for # 2. documented in this encounter Plan of Treatment Upcoming Encounters Date Type Specialty Care Team Description 04/06/2022 Appointment Pulmonology 04/06/2022 Office Visit Pulmonology Matt Watson MD [facility] ER PULMONARY [place] Patel [place], [place] [address] (Wo rk) documented as of this encounter Procedures Procedure Name Priority Date/Time Associated Diagnosis Comme nts CHEMOTHERAPY SCAN 10/12/2014 12:00 AM EDT documented in this encounter Results SCAN DOC: CHEMOTHERAPY (10/12/2014 12:00 AM EDT) Narrative This result has [...] Dose Rate Site acetaminophen (TYLENOL) tablet Given 10/12/2014 11:14 AM EDT 650 mg 650 mg 650 mg, Oral, ONCE, 1 dose, On Wed10/12/14 at 1130, Maximum dose of acetaminophen is 4000 mg from all sources in 24 hours. Prior to riTUXimab., Routine dexamethasone (DECADRON) injection 10 mg Given 10/12/2014 11:20 AM EDT 10 mg 10 mg, Intravenous, ONCE, 1 dose, On Wed10/12/14 at 1130, Prior to riTUXimab., Routine diphenhydrAMINE (BENADRYL) injection 50 mg Given 10/12/2014 11:14 AM EDT 50 mg 50 mg, Intravenous, ONCE, 1 dose, On Wed10/12/14 at 1130, Prior to riTUXimab., Routine riTUXimab (RITUXAN) 700 mg in sodium New Bag 10/12/2014 12:01 PM E DT 700 mg chloride 0.9% 350 mL infusion 700 mg, Intravenous, ONCE, 1 dose, On Wed10/12/14 at 1130 documented in this encounter Care Teams Supply Specialist Relationship Specialty Start Date End Date Matt Mcdonnell DO PCP - General 11/15/12 11/29/19 [address] [place] [address] documented as of this encounter
--- OUTSIDE RECORDS SUMMARY | 2022-04-03 12:33 | XMS_ITS | Encounter Summary ---
:1935 Author Organization [facility] [place] [address] Care Team Providers Name Role Phone Matt Mcdonnell DO Primary Care Provider Encounter Details Date Type Department Care Team Description 09/12/2014 [facility] [address] [place] [phone] Social History Tobacco Use Types Packs/Day [...] Telephone Encounter - Daija Nj RN - 09/12/2014 10:10 AM EDT Received labs from [facility] on 09/11 are [address]. Feliciano who would like to see Ms. Casarez on Thursday 09/14 to discuss further treatment options. Telephone call to Ms. Casarez with lab results and appt information. She agrees with this plan and will see Dr. Feliciano on 09/14. documented in this encounter Plan of Treatment Upcoming Encounters Date Type Specialty Care Team Description 04/06/2022 Appointment Pulmonology 04/06/2022 Office Visit Pulmonology Matt Watson MD [facility] ER PULMONARY TURNER Patel [place], [place] [address] (Wo rk) documented as of this encounter Visit Diagnoses Not on filedocumented in this encounter Care Teams Air Reduction Equipment Operator Relationship Specialty Start Date End Date Matt Mcdonnell DO PCP - General 11/15/12 11/29/19 [address] [place], [place] [id number] documented as of this encounter
--- OUTSIDE RECORDS SUMMARY | 2022-04-03 12:33 | XMS_ITS | Encounter Summary ---
:1935 Author Organization [facility] [place] [address] Care Team Providers Name Role Phone Matt Mcdonnell Primary Care Provider Reason for Visit Reason Comments Follow-up Thrombocytopenia Encounter Details Date Type Department Care Team Description 10/12/2014 Follow-Up Hematology/Oncology Yao Feliciano ITP ( idiopathic at [facility] MD Marisela thrombocytopenic purpura) [address] [place] [address] [facility] [phone] ONCOLOGY [phone] [place], [place] [address] Social History Tobacco Use Types [...] Sign Reading Time Taken Comments Blood Pressure 135/59 10/12/2014 10:04 AM EDT Pulse 64 10/12/2014 10:04 AM EDT Temperature 36.3 ??C (97.3 ??F) 10/12/2014 10:04 AM EDT Respiratory Rate 18 10/12/2014 10:04 AM EDT Oxygen Saturation 98% 10/12/2014 10:04 AM EDT Inhaled Oxygen Concentration - - Weight 88.7 kg (195 lb 8 oz) 10/12/2014 10:04 AM EDT Height 147.3 cm (4' 9.99) 10/12/2014 10:04 AM EDT Body Mass Index 40.87 10/12/2014 10:04 AM EDT documented in this encounter Progress Notes Yao Feliciano MD - 10/11/2014 5:17 PM EDT Subjective: Patient ID: Barbara Casarez is a 78 y.o. female. Problem List: 1. 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 A. Screening mammogram 11/15/12 [...] cancer cells with immunostaining) Stain Intensity: Strong DC immunoreactivity: Positive (>90% cancer cells with immunostaining) [...] Type: Invasive ductal carcinoma Tumor Grade: Low Qokbyq-Iqbwx-Pqssfquobt Score: 5 Tubular Differentiation: 2 Mitotic Rate: 1 Nuclear Grade: 2 Tumor Size: 0.7 cm (maximum diameter) In Situ Histologic Type: Not identified (present in the core bx [id number]) Microcalcifications: Not identified Angiolymphatic Invasion: Not identified [...] Due to the recurrent nature of this, she is heretoday to begin treatment with rituxan. On presentation today, she is doing fairly well. She is anxious about starting therapy but otherwisedoing ok. She has some aching inher knees but no other particular complaints today. No bruising or bleeding. Her appetite is good and her weight [...] is normal. Vitals reviewed. Labs: WBC/ANC - 4.01/2800, Hgb/Hct - 13.8/42.9, Plts - 114,000. Date Plt 10/11/14 114k - started rituxan 09/24/14 92k [...] also has ITP. The platelet count from 6/18/14 had dropped to 36K. She was given a short course of high dose dex at 40 mg per day for 4 days. The platelet count improved to 85K. In 05/13, the platelets decreased to 26k. She was retreated with the same dex dose. She again had a response. In 09/12, the platelets dropped to 38k and dex was repeated. The platelets have again responded. Today, we are planning to start rituxan to see if we can get a more sustained response. The plan is to give this weekly times 4. She is willing to proceed and I will see her again next week. documented in this encounter Plan of Treatment Upcoming Encounters Date Type Specialty Care Team Description 04/06/2022 Appointment Pulmonology 04/06/2022 Office Visit Pulmonology Matt Watson MD [facility] ER PULMONARY [place], [place] [address] (Wo rk) documented as of this encounter Procedures Procedure Name Priority Date/Time Associated Diagnosis Comme nts LAB SCAN 10/11/2014 12:00 AM EDT documented in this encounter Results SCAN DOC: LAB (10/11/2014 12:00 AM EDT) Narrative This result has an attachment that is no t available. 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
--- OUTSIDE RECORDS SUMMARY | 2022-04-03 12:33 | XMS_ITS | Encounter Summary ---
:1935 Author Organization [facility] [place] [address] Care Team Providers Name Role Phone RoMatt dejesus Primary Care Provider Encounter Details Date Type Department Care Team Description 11/19/2014 Hospital Encounter Mammography at [facility], CONV Malignant neoplasm [facility] Yao Feliciano MD [facility] [place] [address] of female breast, [place] [phone] Social History Tobacco Use Types Packs/Day Years [...] D3 ORAL) multivitamin (THERAGRAN) 0 02/25/2010 tablet nystatin (MYCOSTATIN) 100,000 Take 5 mLs by [...] Pulmonology Matt Watson MD [facility] PULMONARY TURNER Patel [place], [place] [address] (Wo rk) documented as of this encounter Procedures Procedure Name Priority Date/Time Associated Diagnosis Comme nts LAB SCAN 11/22/2014 12:00 AM EDT LAB SCAN 11/22/2014 12:00 AM EDT MAMMO SCREENING CAD Routine 11/19/2014 11:57 AM R esults for this BILATERAL EDT procedure are i n the results section. documented in this encounter Results SCAN DOC: LAB (11/22/2014 12:00 AM EDT) Narrative This result has an attachment that is no t available. Scanning Provider MEDIA MGR SCAN EXT ORDR/RSLT SCAN DOC: LAB (11/22/2014 12:00 AM EDT) Narrative This result has an attachment that is no t available. Scanning Provider MEDIA MGR SCAN EXT ORDR/RSLT Mammo digital bilateral Screening with CAD (11/19/2014 11:57 AM EDT) Anatomical Region Laterality Modality Breast Bilateral Mammography Specimen (Source) Anatomical Collection Method Collection Time Re ceived Time Location / / Volume Laterality 11/19/2014 11:57 AM EDT Narrative 11/20/2014 6:00 PM EDT REASON FOR EXAM: Screening. History of Right breast cancer; status-post lumpectomy. ? TECHNIQUE: Cranio-caudal (CC) and mediol ateral oblique (MLO) views of the both breasts obtained with direct digital cap ture. The exam was evaluated by CAD Version 8.3.17. ?? LEFT BREAST MAMMOGRAPHY ?? This is an indeterminate (ACR Category 0 ) mammogram of the LEFT breast. There are calcifications in the upper, outer L eft breast, requiring additional imaging. ? RIGHT BREAST MAMMOGRAPHY ?? This is a negative mammogram (ACR Catego ry 1). There is a stable fibroglandular pattern without significant change as co mpared to prior studies. There is no mammographic evidence of cancer. ? The breasts are of scattered density. ? CONCLUSION ?? ASSESSMENT IS INCOMPLETE: ??Needs additi onal imaging evaluation (ACR Category 0) of the Left breast. The Breast Imaging C enter will contact the patient to schedule additional imaging. ?? The contralateral breast is NEGATIVE (AC R Category 1). Routine screening mammography is recommended of the Right breast with the frequency dependent on the patient's age and breast cancer risk factors. Procedure Note Ana Porras MD - 10/30 REASON FOR EXAM: Screening. History of R ight breast cancer; status-post lumpectomy. TECHNIQUE: Cranio-caudal (CC) and mediol ateral oblique (MLO) views of the both breasts obtained with direct digital cap ture. The exam was evaluated by CAD Version 8.3.17. LEFT BREAST MAMMOGRAPHY This is an indeterminate (ACR Category 0 ) mammogram of the LEFT breast. There are calcifications in the upper, outer L eft breast, requiring additional imaging. RIGHT BREAST MAMMOGRAPHY This is a negative mammogram (ACR Catego ry 1). There is a stable fibroglandular pattern without significant change as co mpared to prior studies. There is no mammographic evidence of cancer. The breasts are of scattered density. CONCLUSION ASSESSMENT IS INCOMPLETE: Needs addition al imaging evaluation (ACR Category 0) of the Left breast. The Breast Imaging C enter will contact the patient to schedule additional imaging. The contralateral breast is NEGATIVE (AC R Category 1). Routine screening mammography is recommended of the Right breast with the frequency dependent on the patient's age and breast cancer risk factors. Yao Feliciano MD IMG MAMMO ORDERABLES documented in this encounter Visit Diagnoses Diagnosis Malignant neoplasm of female breast, rig ht documented in this encounter Care Teams Ammonia Print Operator Relationship Specialty Start Date End Date Matt Mcdonnell DO PCP - General 11/15/12 11/29/[address] [place] [id number] documented as of this encounter
--- OUTSIDE RECORDS SUMMARY | 2022-04-03 12:33 | XMS_ITS | Encounter Summary ---
:1935 Author Organization [facility] [address] Care Team Providers Name Role Phone Matt Mcdonnell Martha KHAN Primary Care Provider Encounter Details Date Type Department Care Team Description 10/26/2014 Follow-Up Hematology/Oncology [facility] [address] [place] [phone] ONCOLOGY [phone] [place], [place] [address] Social History Tobacco Use Types [...] Sign Reading Time Taken Comments Blood Pressure 142/62 10/26/2014 9:50 AM EDT Pulse 72 10/26/2014 9:50 AM EDT Temperature 36.6 ??C (97.9 ??F) 10/26/2014 9:50 AM EDT Respiratory Rate 24 10/26/2014 9:50 AM EDT Oxygen Saturation 97% 10/26/2014 9:50 AM EDT Inhaled Oxygen Concentration - - Weight 88 kg (194 lb) 10/26/2014 9:50 AM EDT Height 147.3 cm (4' 9.99) 10/26/2014 9:50 AM EDT Body Mass Index 40.56 10/26/2014 9:50 AM EDT documented in this encounter Progress Notes Yao Feliciano MD - 10/25/2014 2:07 PM EDT Subjective: Patient ID: Barbara Casarez is a 78 y.o. female. Problem List: 1. Cancer of the right breast, [id number], stage IA, low grade, ER/TN positive, Her-2/veronica negative. A. Screening mammogram 11/15/12 [...] cancer cells with immunostaining) Stain Intensity: Strong TN immunoreactivity: Positive (>90% cancer cells with immunostaining) [...] Type: Invasive ductal carcinoma Tumor Grade: Low Upyntl-Ofuzj-Udkgwrkgiw Score: 5 Tubular Differentiation: 2 Mitotic Rate: 1 Nuclear Grade: 2 Tumor Size: 0.7 cm (maximum diameter) In Situ Histologic Type: Not identified (present in the core bx [id number]) Microcalcifications: Not identified Angiolymphatic Invasion: Not identified [...] 4 days. D. 10/12/14 - Began weekly Rituxan 3. HTN 4. S/p left knee arthroscopy [...] of rituxan which she started on 10/12/14. On presentation today, she isn't feeling as well with URI symptoms. She has nasal congestion and a cough. She had a sore throat last weekend which is better. With the cough, she brings up light coloredsputum. No f/c/s. She tolerated treatment well last week. Other than having difficulty sleeping the e vening after therapy, she did not have any significant side effects. She has been having pain in herleft shoulder and had an xray of that yesterday and we are trying to get that report. It feels a little better today. She used a heating pad for this and that has helped. She also has some aching in her knees but no other particular complaints today. [...] is normal. Vitals reviewed. Labs: WBC/ANC - 8.12/6899, Hgb/Hct - 13.5/42.5, Plts - 58,000. Date Plt 10/25/14 58k 10/18/14 92k 10/11/14 114k - [...] - decadron, 40 mg/day x 4 days Shoulder xrays pending Assessment and Plan: Ms. Casarez is a [...] on 10/12/14. She tolerated this well and we will proceed with week three today. Thus far, we are not seeing evidence of response. We will need to f/u on the reading of the xray of the left shoulder. documented in this encounter Plan of Treatment Upcoming Encounters Date Type Specialty Care Team Description 04/06/2022 Appointment Pulmonology 04/06/2022 Office Visit Pulmonology Matt Watson MD [facility] PULMONARY [place], [place] [address] (Wo rk) documented as of this encounter Procedures Procedure Name Priority Date/Time Associated Diagnosis Comme nts CHEMOTHERAPY SCAN 11/01/2014 12:00 AM EDT LAB SCAN 10/25/2014 12:00 AM EDT documented in this encounter Results SCAN DOC: CHEMOTHERAPY (11/01/2014 12:00 AM EDT) Narrative This result has an attachment that is no t available. Scanning Provider MEDIA MGR SCAN EXT ORDR/RSLT SCAN DOC: LAB (10/25/2014 12:00 AM EDT) Narrative This result has an attachment that is no t available. 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
--- OUTSIDE RECORDS SUMMARY | 2022-04-03 12:33 | XMS_ITS | Encounter Summary ---
:1935 Author Organization [facility] [place] [address] Care Team Providers Name Role Phone RoMatt dejesus Martha KAHN Primary Care Provider Encounter Details Date Type Department Care Team Description 11/02/2014 Follow-Up Hematology/Oncology Yao Feliciano ITP ( idiopathic thrombocytopenic purpura); at [facility] MD Marisela Breast cancer, female, left [address] [facility] [id number] ONCOLOGY [phone] [place], [place] [address] Social History Tobacco Use Types [...] Sign Reading Time Taken Comments Blood Pressure 133/53 11/02/2014 9:52 AM EDT Pulse 65 11/02/2014 9:52 AM EDT Temperature 36.3 ??C (97.3 ??F) 11/02/2014 9:52 AM EDT Respiratory Rate 24 11/02/2014 9:52 AM EDT Oxygen Saturation 97% 11/02/2014 9:52 AM EDT Inhaled Oxygen Concentration - - Weight 88 kg (194 lb) 11/02/2014 9:52 AM EDT Height 147.3 cm (4' 9.99) 11/02/2014 9:52 AM EDT Body Mass Index 40.56 11/02/2014 9:52 AM EDT documented in this encounter Progress Notes Yao Feliciano MD - 11/01/2014 11:27 AM EDT Subjective: Patient ID: Barbara Casarez is a 78 y.o. female. Problem List: 1. Cancer of the right breast, [id number], stage IA, low grade, ER/NV positive, Her-2/veronica negative. A. Screening mammogram 11/15/12 [...] cancer cells with immunostaining) Stain Intensity: Strong NV immunoreactivity: Positive (>90% cancer cells with immunostaining) [...] Type: Invasive ductal carcinoma Tumor Grade: Low Kbcvmo-Zxasp-Rsizfgciqb Score: 5 Tubular Differentiation: 2 Mitotic Rate: 1 Nuclear Grade: 2 Tumor Size: 0.7 cm (maximum diameter) In Situ Histologic Type: Not identified (present in the core bx [id number]) Microcalcifications: Not identified Angiolymphatic Invasion: Not identified [...] started on 10/12/14. On presentation today, she is feeling ok. She is continuing to have the URI/allergy symptoms. It improved for several days following treatment last week. She has nasal congestion and a cough. With the cough, she brings up light colored sputum. No f/c/s. She tolerated treatment well last week. The painin the left shoulder has been better. She also has some aching in her knees but no other particular complaints today. She does not some blood from the left nostril in the AM. No other bruising or bleeding. Her appetite is good and her weight is stable. Her energy level is good. She doesn't have any other specific complaints. Review of Systems Constitutional: Negative. HENT: Negative. Eyes: Negative. Respiratory: Negative. Cardiovascular: Negative. Gastrointestinal: Negative. Genitourinary: Negative. Musculoskeletal: Positive for arthralgias. Skin: Negative. Neurological: Negative. Psychiatric/Behavioral: Negative. Objective: Physical Exam Constitutional: She is oriented to person, place, and time. She appears well- developed and well-nourished. No distress. HENT: Head: Normocephalic. Small amount of bleeding septal mucosa left nostril Eyes: No scleral icterus. Pulmonary/Chest: No respiratory distress. Genitourinary: Breast exam - deferred Musculoskeletal: She exhibits no edema. Neurological: She is alert and oriented to person, place, and time. No cranial nerve deficit. Coordination normal. Skin: Skin is warm and dry. Psychiatric: She has a normal mood and affect. Her behavior is normal. Vitals reviewed. Labs: WBC/ANC - 02/7600, Hgb/Hct - 14/43, Plts -116,000. Date Plt 11/01/14 116k 10/25/14 58k 10/18/14 92k 10/11/14 [...] decadron, 40 mg/day x 4 days Shoulder xray - Osteoarthritis AC joint, o/w negative exam Assessment and Plan: Ms. Casarez is a [...] and she began this on 10/12/14. She has tolerated this well and the platelet count this week is higher which is encouraging. We will proceed with dose 4 today, the last planned dose. I will see her again in three weeks with a mammogram prior and we will recheck the cbc. She is going to arrange an appt to see Dr. Fry regarding the persistent bleeding from the left nostril. documented in this encounter Plan of Treatment Upcoming Encounters Date Type Specialty Care Team Description 04/06/2022 Appointment Pulmonology 04/06/2022 Office Visit Pulmonology Matt Watson MD [facility] PULMONARY [place], [place] [address] (Wo rk) documented as of this encounter Procedures Procedure Name Priority Date/Time Associated Diagnosis Comme nts LAB SCAN 11/22/2014 12:00 AM EDT LAB SCAN 11/01/2014 12:00 AM EDT documented in this encounter Results SCAN DOC: LAB (11/22/2014 12:00 AM EDT) Narrative This result has an attachment that is no t available. Scanning Provider MEDIA MGR SCAN EXT ORDR/RSLT SCAN DOC: LAB (11/01/2014 12:00 AM EDT) Narrative This result has an attachment that is no t available. 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
--- OUTSIDE RECORDS SUMMARY | 2022-04-03 12:34 | XMS_ITS | Encounter Summary ---
:1935 Author Organization [facility] [place] [address] Care Team Providers Name Role Phone RoMatt dejesus Primary Care Provider Encounter Details Date Type Department Care Team Description 12/09/2012 Hospital Encounter MRI at [facility], DR RENAE Breast cancer [facility] Courtney Dill MD [facility] [place] [address] [place] [phone] Social History Tobacco Use Types Packs/Day Years Used Date Never Smoker Sex Assigned at Date Recorded Female 10/29/2021 2:50 PM EDT documented as of this encounter Last Filed Vital Signs Vital Sign Reading Time Taken Comments Blood Pressure - - Pulse - - Temperature - - Respiratory Rate - - Oxygen Saturation - - Inhaled Oxygen Concentration - - Weight 88.5 kg (195 lb) 12/09/2012 6:35 AM EDT Height - - Body Mass Index 40.44 11/15/2012 10:21 AM EDT documented in this encounter Medications at Time of Discharge Medication Sig Dispensed Refills Start Date End Date CALCIUM CARBONATE/VITAMIN 0 02/25/2010 D3 (CALCIUM 600 WITH VITAMIN D3 ORAL) multivitamin (THERAGRAN) 0 02/25/2010 tablet lisinopril Take 40 mg by mouth 0 02/23 (PRINIVIL;ZESTRIL) 20 mg daily. tablet aspirin (BABY ASPIRIN) 81 0 02/25/2010 05/18/2014 mg chewable tablet bisoprolol-hydrochlorothia 0 0 04/26/2015 zide (ZIAC) 10-6.25 mg per tablet HYDRALAZINE HCL 0 02/25/2010 4 (HYDRALAZINE ORAL) terazosin (HYTRIN) 2 mg 0 02/25/2010 0 02/06/2013 capsule documented as of this encounter Miscellaneous Notes Miscellaneous - Provider, Scanning - 12/19/2012 8:21 AM EDT documented in this encounter Plan of Treatment Upcoming Encounters Date Type Specialty Care Team Description 04/06/2022 Appointment Pulmonology 04/06/2022 Office Visit Pulmonology Matt Watson MD [facility] ER DR ANEESH Patel [place], [place] [address] (Wo rk) documented as of this encounter Procedures Procedure Name Priority Date/Time Associated Diagnosis Comme nts MRI BREAST WWO Routine 12/09/2012 7:00 PM Breast cancer Result s for this CONTRAST BILAT EDT procedure are in the results section. documented in this encounter Results MRI breast diagnostic bilateral with/WO contrast (12/09/2012 7:00 PM EDT) Anatomical Region Laterality Modality Breast N/A Magnetic Resonance Specimen (Source) Anatomical Collection Method Collection Time Re ceived Time Location / / Volume Laterality 12/09/2012 7:00 PM EDT Narrative 12/14/2012 11:56 AM EDT BILATERAL BREAST MRI ON 12/09/12: ?? SUMMARY: ?? RIGHT BREAST LESION 1: KNOWN MALIGNANCY (BIRADS Category 6). ?? Lesion type: Mass. Size: 9 x 4 x 4mm. Location: 1100, 8.1 (4.7)cm from the nip ple (radial). ?? Distance from skin: 38mm. Mass margins: Irregular. Mass shape: Lobulated. Enhancement pattern: Homogeneous. Kinetics: Plateau/washout. Recommendation: Definitive surgery. ?? LEFT BREAST LESION 1: SUSPICIOUS (BIRADS Category 4). Lesion type: Mass. Size: 17 x 15 x 16mm. Location: Retroareolar, 0cm from the nip ple. Distance from skin: 0mm. Mass margins: Irregular. Mass shape: Lobulated. Enhancement pattern: Heterogeneous. Kinetics: Washout. Recommendation: Diagnostic ultrasound. ?? Comments: 17mm lobulated mass involving and expanding the Left nipple. Recommend follow-up ultrasound for diagn ostics. It may or may not be amenable to ultrasound guided biopsy/FNA. ?? NARRATIVE: ?? Clinical indication: Right breast ipsila teral staging; Left breast contralateral screening. ? Techniques: Multiplanar sequences were o btained pre- and post- gadolinium enhancement, to include SPGR weighted dy namic run-off and subtraction sequences obtained after the intravenous administr ation of 9ccs of Gadavist. Computer algorithm analysis for lesion detection and kinetic contrast enhancement curve analysis was performed, using [employer] oftware. ?? Background enhancement pattern (first po st gadolinium images): Mild (25-50% breast). ?? Comparison studies: Ultrasound dated: 12/05/12. ??MRI dated: 10/11/09, 09/07/05. ?? 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 ?? Date of Diagnosis: 12/10. ?? Axillary nodes: Visualization adequate b ilaterally. ?? Benign appearing axillary nodes: Bilater ally. ?? Film and interpretation reviewed by the attending Procedure Note Analia Gallagher MD - 12/14/2012Formattin g of this note might be different from the original. BILATERAL BREAST MRI ON 12/09/12: SUMMARY: RIGHT BREAST LESION 1: KNOWN MALIGNANCY (BIRADS Category 6). Lesion type: Mass. Size: 9 x 4 x 4mm. Location: 1100, 8.1 (4.7)cm from the nip ple (radial). Distance from skin: 38mm. Mass margins: Irregular. Mass shape: Lobulated. Enhancement pattern: Homogeneous. Kinetics: Plateau/washout. Recommendation: Definitive surgery. LEFT BREAST LESION 1: SUSPICIOUS (BIRADS Category 4). Lesion type: Mass. Size: 17 x 15 x 16mm. Location: Retroareolar, 0cm from the nip ple. Distance from skin: 0mm. Mass margins: Irregular. Mass shape: Lobulated. Enhancement pattern: Heterogeneous. Kinetics: Washout. Recommendation: Diagnostic ultrasound. Comments: 17mm lobulated mass involving and expanding the Left nipple. Recommend follow-up ultrasound for diagn ostics. It may or may not be amenable to ultrasound guided biopsy/FNA. NARRATIVE: Clinical indication: Right breast ipsila teral staging; Left breast contralateral screening. Techniques: Multiplanar sequences were o btained pre- and post- gadolinium enhancement, to include SPGR weighted dy namic run-off and subtraction sequences obtained after the intravenous administr ation of 9ccs of Gadavist. Computer algorithm analysis for lesion detection and kinetic contrast enhancement curve analysis was performed, using [employer] oftware. Background enhancement pattern (first po st gadolinium images): Mild (25-50% breast). Comparison studies: Ultrasound dated: 12/05/12. MRI dated: 10/11/09, 09/07/05. 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 Date of Diagnosis: 12/10. Axillary nodes: Visualization adequate b ilaterally. Benign appearing axillary nodes: Bilater ally. Film and interpretation reviewed by the attending Courtney Dill MD IMG MRI ORDERABLES documented in this encounter Visit Diagnoses Diagnosis Breast cancer Malignant neoplasm of breast (female), u nspecified site documented in this encounter Administered Medications Inactive Administered Medications - up to 3 most recent administrations Medication Order MAR Action Action Date Dose Rate Site gadobutrol (GADAVIST) 10 mmol/10 mL Given 12/09/2012 6:42 PM EDT 9 mLs (1 mmol/mL) injection 8.85 mL 8.85 mL (0.1 mL/kg/dose ? 88.5 kg), Intravenous, ONCE PRN, 1 dose, Starting on Wed12/09/12 at 0635, Until Wed12/09/12 at 1842, Per Protocol, Routine documented in this encounter Care Teams Test Car Driver Relationship Specialty Start Date End Date Matt Mcdonnell DO PCP - General 11/15/12 11/29/19 [address] [place] [address] documented as of this encounter
--- OUTSIDE RECORDS SUMMARY | 2022-04-03 12:34 | XMS_ITS | Encounter Summary ---
:1935 Author Organization [facility] [place] [address] Care Team Providers Name Role Phone FritzMatt hollins Primary Care Provider Encounter Details Date Type Department Care Team Description 11/13/2013 Hospital Encounter Mammography at [facility], DR RENAE Breast cancer [facility] Yao Feliciano MD [facility] [place] [address] [place] [address] Social History Tobacco Use Types Packs/Day [...] Take 1 tablet by 90 tablet 3 07/3008/17/2014 tabletIndications: Breast mouth daily. cancer hydrochlorothiazide Take 25 mg by 0 (HYDRODIURIL) 25 mg tablet mouth daily. naproxen sodium (ALEVE) 220 Take 220 mg by 0 11/02/2014 mg tablet mouth 2 times daily (with meals). doxazosin (CARDURA) 2 mg Take 4 mg by 0 04/26/2015 tablet mouth nightly. ibuprofen (ADVIL;MOTRIN) 600 Take 1 tablet by 30 tablet 12 0 01/05/2013 11/02/2014 mg tablet mouth every 6 hours as needed for Pain. acetaminophen (TYLENOL) 325 Take 2 tablets 30 tablet 1 12/201206/04/2016 mg tablet by mouth every 4 hours as needed for Pain. lisinopril (PRINIVIL;ZESTRIL) Take 40 mg by 0 02/23/2014 20 mg tablet mouth daily. aspirin (BABY ASPIRIN) 81 mg 0 010 05/18/2014 chewable tablet bisoprolol-hydrochlorothiazid 0 200904/26/2015 e (ZIAC) 10-6.25 mg per tablet HYDRALAZINE HCL (HYDRALAZINE 0 010 02/23/2014 ORAL) documented as of this encounter Procedure Notes Provider, Scanning - 2013 3:12 PM EDTAssociated Order(s): SCAN DOC: LAB Provider, Scanning - 11/15/2013 3:50 PM EDTAssociated Order(s): SCAN DOC: LAB Provider, Scanning - 11/15/2013 3:06 PM EDTAssociated Order(s): SCAN DOC: LAB documented in this encounter Plan of Treatment Upcoming Encounters Date Type Specialty Care Team Description 04/06/2022 Appointment Pulmonology 04/06/2022 Office Visit Pulmonology Matt Watson MD [facility] ER PULMONARY [place], [place] [address] (Wo rk) documented as of this encounter Procedures Procedure Name Priority Date/Time Associated Diagnosis Comme nts LAB SCAN 2013 3:12 PM Results f or this EDT procedure are i n the results section. LAB SCAN 11/15/2013 3:50 PM Results f or this EDT procedure are i n the results section. LAB SCAN 11/15/2013 3:06 PM Results f or this EDT procedure are i n the results section. MAMMO SCREENING CAD Routine 11/13/2013 11:17 AM R esults for this BILATERAL EDT procedure are i n the results section. documented in this encounter Results SCAN DOC: LAB (2013 3:12 PM EDT) Narrative 2013 3:12 PM EDT Procedure Note Provider, Scanning - 2013 3:12 PM EDT Scanning Provider MEDIA MGR SCAN EXT ORDR/RSLT SCAN DOC: LAB (11/15/2013 3:50 PM EDT) Narrative 11/15/2013 3:50 PM EDT Procedure Note Provider, Scanning - 11/15/2013 3:50 PM EDT Scanning Provider MEDIA MGR SCAN EXT ORDR/RSLT SCAN DOC: LAB (11/15/2013 3:06 PM EDT) Narrative 11/15/2013 3:06 PM EDT Procedure Note Provider, Scanning - 11/15/2013 3:06 PM EDT Scanning Provider MEDIA MGR SCAN EXT ORDR/RSLT Mammo digital bilateral Screening with CAD (11/13/2013 11:17 AM EDT) Anatomical Region Laterality Modality Breast Bilateral Mammography Specimen (Source) Anatomical Collection Method Collection Time Re ceived Time Location / / Volume Laterality 11/13/2013 11:17 AM EDT Narrative 11/14/2013 9:23 AM EDT Reason for Exam: Screening Technique: Craniocaudal (CC) and Medio-l ateral Oblique (MLO) views of both breasts obtained with direct digital cap ture. The exam was evaluated by CAD version 8. 3.17. Findings: This is a negative mammogram (ACR Catego ry 1). There is a stable fibroglandular pattern without significant change from prior studies. Postsurgical changes following lumpectomy Right breast and du ct excision Left breast 12/2012. There is no mammographic evidence of can cer. The breasts are of scattered density. CONCLUSION: This is a NEGATIVE mammogram (ACR Catego ry 1). Routine screening mammography is recomme nded with the frequency dependent upon the patients age and breast cancer risk factors. A letter has been sent to this patient b y the breast imaging center. Procedure Note Charity Wells MD - 4 Reason for Exam: Screening Technique: Craniocaudal (CC) and Medio-l ateral Oblique (MLO) views of both breasts obtained with direct digital cap ture. The exam was evaluated by CAD version 8. 3.17. Findings: This is a negative mammogram (ACR Catego ry 1). There is a stable fibroglandular pattern without significant change from prior studies. Postsurgical changes following lumpectomy Right breast and du ct excision Left breast 12/2012. There is no mammographic evidence of can cer. The breasts are of scattered density. CONCLUSION: This is a NEGATIVE mammogram (ACR Catego ry 1). Routine screening mammography is recomme nded with the frequency dependent upon the patients age and breast cancer risk factors. A letter has been sent to this patient b y the breast imaging [facility]. Yao Feliciano MD IMG MAMMO ORDERABLES documented in this encounter Visit Diagnoses Diagnosis Breast cancer Malignant neoplasm of breast (female), u nspecified site documented in this encounter Care Teams Metal Burnisher Relationship Specialty Start Date End Date Matt Mcdonnell DO PCP - General 11/15/12 11/29/19 [address] [place] [address] documented as of this encounter
--- OUTSIDE RECORDS SUMMARY | 2022-04-03 12:34 | XMS_ITS | Encounter Summary ---
:1935 Author Organization [facility] Address [address] [place] [address] Care Team Providers Name Role Phone Matt Mcdonnell DO Primary Care Provider Encounter Details Date Type Department Care Team Description 12/14/2012 Orders Only Radiology Analia Gallagher MD Abnormal mammogram, [facility] uns pecified ([address]) [place] [phone] NUCLEAR MEDICINE [phone] [place], [place] [address] Social History Tobacco Use Types Packs/Day Years Used Date Never Smoker Sex Assigned at Date Recorded Female 10/29/2021 2:50 PM EDT documented as of this encounter Plan of Treatment Upcoming Encounters Date Type Specialty Care Team Description 04/06/2022 Appointment Pulmonology 04/06/2022 Office Visit Pulmonology Matt Watson MD [facility] ER PULMONARY DISEMIR[address] Patel [place], [place] [address] (Wo rk) documented as of this encounter Results Mammo breast US unilateral bilateral (12/21/2012 3:27 PM EDT) Anatomical Region Laterality Modality Breast N/A Mammography Specimen (Source) Anatomical Collection Method Collection Time Re ceived Time Location / / Volume Laterality 12/21/2012 3:27 PM EDT Narrative 12/22/2012 12:37 PM EDT LEFT BREAST ULTRASOUND ON 12/21/12: DIAGNOSTIC IMAGING SUMMARY: LEFT BREAST LESION 1: SUSPICIOUS (BIRADS Category 4). Finding: Left nipple and immediate peria reolar mass at 3:00 with calcifications extending into the nipple. Recommendation: Excisional biopsy. Above findings discussed with the patien t by Dr. Lama at the time of this evaluation. Above findings discussed with Dr. Divine buckner by Dr. Lama immediately after this examination. NARRATIVE: CLINICAL INDICATION: This is a callback from breast MRI of 12/09/12 for Left breast lesion 1 (BIRADS Category 4) retr oareolar enhancing mass. FINDINGS: The enhancing nipple and retro areolar mass seen on MRI has been present for several years but has increa sed slightly in size. The patient reports a history of prior benign Left n ipple duct excision at an outside institution but with persistent intermit tent Left nipple discharge. Review of previous mammograms shows a very low den sity 5mm immediate retroareolar nodule with a few faint calcifications extendin g into the nipple. Ultrasound evaluation today identifies a corresponding 5.5mm hypoechoic solid mass located at 3:00 , just lateral to t he base of the nipple, containing coarse calcifications which extend into the nipple. Mammographic, MRI and sonographic appearance are most consiste nt with a papilloma versus, less likely, DCIS. In view of the location an d the likelihood that core needle biopsy would not remove the entire lesio n, excisional biopsy is preferred. Procedure Note Delia Lama MD - 12/22/2012 LEFT BREAST ULTRASOUND ON 12/21/12: DIAGNOSTIC IMAGING SUMMARY: LEFT BREAST LESION 1: SUSPICIOUS (BIRADS Category 4). Finding: Left nipple and immediate peria reolar mass at 3:00 with calcifications extending into the nipple. Recommendation: Excisional biopsy. Above findings discussed with the patigeo t by Dr. Lama at the time of this evaluation. Above findings discussed with Dr. Divine buckner by Dr. Lama immediately after this examination. NARRATIVE: CLINICAL INDICATION: This is a callback from breast MRI of 12/09/12 for Left breast lesion 1 (BIRADS Category 4) retr oareolar enhancing mass. FINDINGS: The enhancing nipple and retro areolar mass seen on MRI has been present for several years but has increa sed slightly in size. The patient reports a history of prior benign Left n ipple duct excision at an outside institution but with persistent intermit tent Left nipple discharge. Review of previous mammograms shows a very low den sity 5mm immediate retroareolar nodule with a few faint calcifications extendin g into the nipple. Ultrasound evaluation today identifies a corresponding 5.5mm hypoechoic solid mass located at 3:00 , just lateral to t he base of the nipple, containing coarse calcifications which extend into the nipple. Mammographic, MRI and sonographic appearance are most consiste nt with a papilloma versus, less likely, DCIS. In view of the location an d the likelihood that core needle biopsy would not remove the entire lesio n, excisional biopsy is preferred. Analia Gallagher MD IMG MAMMO ORDERABLES documented in this encounter Visit Diagnoses Diagnosis Abnormal mammogram, unspecified - Primar y Abnormal mammogram, unspecified documented in this encounter Care Teams Software Test Automation Engineer Relationship Specialty Start Date End Date Matt Mcdonnell DO PCP - General 11/15/12 11/29/[address] [place] [id number] documented as of this encounter
--- OUTSIDE RECORDS SUMMARY | 2022-04-03 12:34 | XMS_ITS | Encounter Summary ---
:1935 Author Organization [facility] [place] [address] Care Team Providers Name Role Phone FritzMatt hollins Martha KHAN Primary Care Provider Encounter Details Date Type Department Care Team Description 11/16/2013 [facility] [address] [place], [place] [phone] Social History Tobacco Use Types Packs/Day [...] Telephone Encounter - Daija Nj RN - 11/16/2013 12:34 PM EDT Received labs from [facility]. Patient's plts are 36k. Other labs - wbc 9.4, hgb 13.7, anc 6.7 Dr. Feliciano notified of low plt count. Would like patient to take Dexamethasone 40mg daily x 4 days, starting today. Labs again on 11/23. Barbara has appt with Dr. Feliciano scheduled for 11/24. Call placed to patient, who denies bleeding/brusing. She states that she feels ok other than some SOB - reports that she has had a workup with Dr. Andre with echo and stress test about 5 weeks ago - told she was deconditioned and it was recommended that she walk a mile a day, which she states she is unable to do. She otherwise feels ok. Barbara reports that she spoke with her pharmacist and she is currently taking three prescription medications for my heart that can cause thrombocytopenia. She is scheduled to see Dr. Andre tomorrow and will discuss these medications with him at that time. Barbara will start the Dexamethasone 40mg today. She was instructed to call with any bleeding/bruising. She verbalized understanding. documented in this encounter Plan of Treatment Upcoming Encounters Date Type Specialty Care Team Description 04/06/2022 Appointment Pulmonology 04/06/2022 Office Visit Pulmonology Matt Watson MD [facility] PULMONARY TURNER Patel [place], [place] [address] (Wo rk) documented as of this encounter Visit Diagnoses Diagnosis Thrombocytopenia - Primary Thrombocytopenia, unspecified documented in this encounter Care Teams Esthetician/Owner Relationship Specialty Start Date End Date Matt Mcdonnell DO PCP - General 11/15/12 11/29/[address] [place] [address] documented as of this encounter
--- OUTSIDE RECORDS SUMMARY | 2022-04-03 12:34 | XMS_ITS | Encounter Summary ---
:1935 Author Organization [facility] [place] [address] Care Team Providers Name Role Phone Matt Mcdonnell Martha KHAN Primary Care Provider Reason for Visit Reason Comments Other Encounter Details Date Type Department Care Team Description 04/03/2013 Telephone Radiation Oncology at Marleni Sorto RN [place] [phone] Social History Tobacco Use Types Packs/Day [...] encounter Miscellaneous Notes Telephone Encounter - Marleni Sorto RN - 04/03/2013 10:11 AM EST Message copied by MARLENI SORTO on WedApr 03, 2013 10:11 AM ------ Message from: MEI KOWALSKI Created: WedApr 03, 2013 9:15 AM Marleni/Nneka, please call her & let her know that CBC from 03/27 ok. Green Telephone call to Barbara and informed her at the request of Dr. Kowalski that her CBC from 03/27 was ok. She inquired as to what her plt count, H/H were and I read these values to her. She states that is good, not much change. She states that she would like a copy of the lab values for her own records when she comes in to see Dr. Feliciano. I told her that I will update Dr. Feliciano via his nurse Tiana regarding this request. documented in this encounter Plan of Treatment Upcoming Encounters Date Type Specialty Care Team Description 04/06/2022 Appointment Pulmonology 04/06/2022 Office Visit Pulmonology Matt Watson MD [facility] PULMONARY TURNER Patel [place], [place] [address] (Wo rk) documented as of this encounter Visit Diagnoses Not on filedocumented in this encounter Care Teams Grid Molder Relationship Specialty Start Date End Date Matt Mcdonnell DO PCP - General 11/15/12 11/29/19 [address] [place] [address] documented as of this encounter
--- OUTSIDE RECORDS SUMMARY | 2022-04-03 12:34 | XMS_ITS | Encounter Summary ---
:1935 Author Organization [facility] [place] [address] Care Team Providers Name Role Phone Manuel Mcdonnellrey Martha KHAN Primary Care Provider Encounter Details Date Type Department Care Team Description 04/02/2013 External Results XRay at [facility] Provider, Scanning [address] [place] [address] [place] [phone] Social History Tobacco Use Types Packs/Day [...] 04/06/2022 Office Visit Pulmonology Matt Watson MD [facility] PULMONARY T[place] [address] (Wo rk) documented as of this encounter Procedures Procedure Name Priority Date/Time Associated Diagnosis Comme nts DIAGNOSTIC RADIOLOGY SCAN Routine 03/27/2013 documented in this encounter Results Scan Doc: Diagnostic Radiology (03/27/2013) Anatomical Region Laterality Modality Other Narrative This result has an attachment that is no t available. Scanning Provider MEDIA MGR SCAN EXT ORDR/RSLT documented in this encounter Visit Diagnoses Not on filedocumented in this encounter Care Teams Cheese Pancake Roller Relationship Specialty Start Date End Date Matt Mcdonnell DO PCP - General 11/15/12 11/29/19 [address] [place] [address] documented as of this encounter
--- OUTSIDE RECORDS SUMMARY | 2022-04-03 12:34 | XMS_ITS | Encounter Summary ---
:1935 Author Organization [facility] [place] [address] Care Team Providers Name Role Phone FritzMatt hollins Martha KHAN Primary Care Provider Encounter Details Date Type Department Care Team Description 05/17/2013 Follow-Up Hematology Oncology at [facility] B reast cancer, stage 1, [facility] MANUFACTURING ASSOCIATE estrogen receptor [address] [facility] positive, unspecified [facility], [place] DR laterality (Primary Dx) [id number] RADIATION ONCOLOGY [phone] [place], [place] [address] (Wo rk) Social History Tobacco [...] Sign Reading Time Taken Comments Blood Pressure 141/59 05/17/2013 10:33 AM EST Pulse 63 05/17/2013 10:33 AM EST Temperature 36.3 ??C (97.3 ??F) 05/17/2013 10:33 AM EST Respiratory Rate 18 05/17/2013 10:33 AM EST Oxygen Saturation 95% 05/17/2013 10:33 AM EST Inhaled Oxygen Concentration - - Weight 87.5 kg (193 lb) 05/17/2013 10:33 AM EST Height - - Body Mass Index 40.35 02/10/2013 9:05 AM EDT documented in this encounter Progress Notes Orlando Agnes Smita, MANUFACTURING ASSOCIATE - 05/17/2013 5:05 PM EST This is a 77 y.o.woman who was diagnosed with breast cancer. She has had surgery radiation therapy and is now on letrozole. She is here today for routine followup in radiation oncology. HPI: 77 y/o f who, in underwent excisional bx from L breast by Dr. Roberts, surgeon @ [facility],w/path showing duct ectasia. She had presented w/L nipple discharge, which continued, & for which she had been seen by Dr. Beck, most recently in . 11/15/12 routine screening mmg: Indeterminate in R breast w/focal asymmetry in UOQ, requiring additional imaging. L mmg neg. 11/28/12 R mmg & R breast US: R breast lesion 1; SUSPICIOUS; 6 mm irregular hypoechoic mass; @ 1100. 12/05/12 needle bxs R breast, of 6 mm mass in UOQ @ 1100. Path: IDC. DCIS. LCIS. ER+DE+. [id number] 12/09/12 CXR: No met dz. Borderline cardiomegaly. 12/09/12 B breast MRI: R breast lesion 1; KNOWN MALIGNANCY; 9 x 4 x 4 mm mass; @ 1100; 38 mm from skin. L breast lesion 1; SUSPICIOUS; 17 x 15 x 16 mm retroareolar mass; 0 mm from skin. Comments: 17 mm lobulated mass involving & expanding L nipple. Rec FU US for diagnostics. It may/may not be amenable to US guided bx/FNA. Ax nodes, visualization adequate B. Benign appearing axillary nodes B. 12/21/12 L breast US: L breast lesion 1; SUSPICIOUS; 5.5 mm hypoechoic solid L nipple & immediateperiareolar mass @ 3:00, just lateral to base of nipple, w/calcs extending into nipple; rec for excisional bx 12/21/[address] Beck, w/exam showing symmetrical breasts w/o skin/nipple changes, no palpable breast mass & no adenopathy. 01/05/13 B lumpectomies, w/NLOC on R. R lumpectomy down to & inclusive of pec fascia, w/specimen mmg showing suspicious area. Part of L nipple removed. R SNB. 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 RM involved, adjacent to skin. B - R partial mastectomy: IDC; low gr; SBR 5; 0.7 cm; no in situ histo type; no ALI/PI; RM uninvolved; 1 axillary lymph node, neg; pT1b pN0. 01/25/13 FU w/Dr. Beck w/plan for eval by Rad Onc & Med Onc, rtc 6 mos. Continues followup with Dr Feliciano. Healed well from surg. No pain. No hand/arm swelling. ROM of arms around shoulders good. Past Medical History Diagnosis Date ??? Cancer ??? Hypertension Followed by Dr. Salmeron for thrombocytopenia, w/working dx of ITP; no plan for tx presently. Past Surgical History Procedure Date ??? Removal of breast lesion 01/05/2013 EXCISION CYST, FIBROADENOMA, ABBERANT BREAST TISSUE,DUCT LESION,NIPPLE OR AREOLAR LESION (LUMPECTOMY) performed by Yakov Beck MD at [facility] MAIN OR ??? Mastectomy, partial 01/05/2013 MASTECTOMY PARTIAL performed by Yakov Beck MD at [facility] MAIN OR ??? Bx/remv, lymph node, deep axill 01/05/2013 BIOPSY OR EXCISION OF LYMPH NODE(S), OPEN, DEEP AXILLARY NODE(S) performed by Yakov Beck MD at [facility] MAIN OR ??? Identify sentinel node 01/05/2013 SENTINEL NODE INJECTION performed by Yakov Beck MD at [facility] MAIN OR 12/28/12 L knee arthroscopy Allergies Allergen Reactions ??? Celebrex (Celecoxib) Other (See Comments) Hypotension, tachycardia per patient ??? Norvasc (Amlodipine) Other (See Comments) Causes edema to lower extremities Current Outpatient Prescriptions on File Prior to Visit Medication Sig Dispense Refill ??? letrozole (FEMARA) 2.5 mg tablet Take 1 tablet by mouth daily. 30 tablet 11 ??? naproxen sodium (ALEVE) 220 mg tablet Take 220 mg by mouth 2 times daily (with meals). ??? doxazosin (CARDURA) 2 mg tablet Take 4 mg by mouth nightly. ??? ibuprofen (ADVIL;MOTRIN) 600 mg tablet Take 1 tablet by mouth every 6 hours as needed for Pain. 30 tablet 12 ??? acetaminophen (TYLENOL) 325 mg tablet Take 2 tablets by mouth every 4 hours as needed for Pain. 30 tablet 1 ??? lisinopril (PRINIVIL;ZESTRIL) 20 mg tablet Take 40 mg by mouth daily. ??? aspirin (BABY ASPIRIN) 81 mg chewable tablet ??? bisoprolol-hydrochlorothiazide (ZIAC) 10-6.25 mg per tablet ??? CALCIUM CARBONATE/VITAMIN D3 (CALCIUM 600 WITH VITAMIN D3 ORAL) ??? multivitamin (THERAGRAN) tablet ??? HYDRALAZINE HCL (HYDRALAZINE ORAL) P&SH: Neg for smoking. Physical Exam Constitutional: She is oriented to person, place, and time. She appears well- developed and well-nourished. No distress. BP 128/63 Pulse 67 Temp 34.7 ??C (94.5 ??F) (Oral) Resp 20 Wt 89.359 kg (197 lb) SpO2 96% HENT: Head: Normocephalic and atraumatic. Eyes: Conjunctivae normal and EOM are normal. Right eye exhibits no discharge. Left eye exhibits no discharge. No scleral icterus. Neck: Normal range of motion. Neck supple. No tracheal deviation present. No thyromegaly present. Pulmonary/Chest: Effort normal and breath sounds normal. No stridor. No respiratory distress. She has no wheezes. She has no rales. She exhibits no tenderness. Right breast exhibits no inverted nipple,no mass, no nipple discharge, radiation skin changes and no tenderness. Left breast exhibits no inverted nipple, no mass, no nipple discharge, no skin change and no tenderness. Abdominal: Soft. She exhibits no distension and no mass. There is no tenderness. There is no reboundand no guarding. Musculoskeletal: Normal range of motion. She exhibits no edema and no tenderness. Lymphadenopathy: She has no cervical adenopathy. She has no axillary adenopathy. Neurological: She is alert and oriented to person, place, and time. No cranial nerve deficit. She exhibits normal muscle tone. Coordination normal. Skin: She is not diaphoretic. Psychiatric: She has a normal mood and affect. Her behavior is normal. Judgment and thought content normal. Labs: none done today. Assessment/Plan: Breast ca, R, IDC, low gr, ER+DE+, Rei5gud-, s/p lumpectomy & SNB, stage I, pT1b pN0. She is status post radiation therapy. She is currently on letrozole. She is tolerating this without any problems. Her breast is well healed. She will not need any followup in radiation. She will continue to be followed by Dr Feliciano. She is comfortable with this plan. documented in this encounter Procedure Notes Provider, Scanning - 08/15/2013 12:24 PM EDTAssociated Order(s): SCAN DOC: LAB documented in this encounter Plan of Treatment Upcoming Encounters Date Type Specialty Care Team Description 04/06/2022 Appointment Pulmonology 04/06/2022 Office Visit Pulmonology Matt Watson MD [facility] PULMONARY TURNER Pat[place], [place] [address] (Wo rk) documented as of this encounter Procedures Procedure Name Priority Date/Time Associated Diagnosis Comme nts LAB SCAN 08/15/2013 12:24 PM Results for this EDT procedure are i n the results section . documented in this encounter Results SCAN DOC: LAB (08/15/2013 12:24 PM EDT) Narrative 08/15/2013 12:24 PM EDT Procedure Note Provider, Scanning - 08/15/2013 12:24 PM EDT Scanning Provider MEDIA MGR SCAN EXT ORDR/RSLT documented in this encounter Visit Diagnoses Diagnosis Breast cancer, stage 1, estrogen recepto r positive, unspecified laterality - Primary documented in this encounter Care Teams Maternity Floor Supervisor Relationship Specialty Start Date End Date Matt Mcdonnell DO PCP - General 11/15/12 11/29/19 [address] [place] [address] documented as of this encounter
--- OUTSIDE RECORDS SUMMARY | 2022-04-03 12:34 | XMS_ITS | Encounter Summary ---
:1935 Author Organization [facility] [place] [address] Care Team Providers Name Role Phone Matt Mcdonnell Primary Care Provider Reason for Visit Reason Onset Date Comments Follow-up 12/29/2012 Discuss lab results 12-27-12 Encounter Details Date Type Department Care Team Description 12/29/2012 Telephone Hematology and Oncology Jennifer Dennis, Follow-up (Discuss lab at [facility] RN results 12-27-12) [place] [address] Social History Tobacco Use Types Packs/Day Years Used Date Never Smoker Sex Assigned at Date Recorded Female 10/29/2021 2:50 PM EDT documented as of this encounter Miscellaneous Notes Telephone Encounter - Jennifer Dennis RN - 12/29/2012 8:38 AM EDT Received lab results from [facility], drawn 12-27-12. Input results into [facility] and forwarded to Dr Salmeron. Spoke to pt to discuss results. She is aware that PLT=74 and other results stable. She states she had arthroscopy of left knee yesterday. Denies drainage from incision sites or other s/s bleeding. She is scheduled for right lumpectomy on 01-05-13 for newly diagnosed breast cancer. RN to update MD. Discussed contacting clinic office with further questions or concerns. documented in this encounter Plan of Treatment Upcoming Encounters Date Type Specialty Care Team Description 04/06/2022 Appointment Pulmonology 04/06/2022 Office Visit Pulmonology Matt Watson MD [facility] ER PULMONARY TURNER Patel [place], [place] [address] (Wo rk) documented as of this encounter Visit Diagnoses Not on filedocumented in this encounter Care Teams Ccie Relationship Specialty Start Date End Date Matt Mcdonnell DO PCP - General 11/15/12 11/29/19 [address] [place] [address] documented as of this encounter
--- OUTSIDE RECORDS SUMMARY | 2022-04-03 12:34 | XMS_ITS | Encounter Summary ---
:1935 [place] [address] Care Team Providers Name Role Phone Matt Mcdonnell Primary Care Provider Encounter Details Date Type Department Care Team Description 12/05/2012 Orders Only Radiology Drew Kelly MD [facility] [place] [address] DIAGNOSTIC RADIOLOGY [phone] [place] [phone] (Wo rk) Social History Tobacco Use Types Packs/Day Years Used Date Never Smoker Sex Assigned at Date Recorded Female 10/29/2021 2:50 PM EDT documented as of this encounter Progress Notes Drew Kelly MD - 12/05/2012 8:43 AM EDT Procedure date: done today Procedure type: right Breast US guided needle biopsy Special Instructions: none Allergies: Norvasc Medications: Current outpatient prescriptions:lisinopril (PRINIVIL;ZESTRIL) 20 mg tablet, Take 20 mgby mouth daily., Disp: , Rfl: ; aspirin (BABY ASPIRIN) 81 mg chewable tablet, , Disp: , Rfl: ; bisoprolol-hydrochlorothiazide (ZIAC) 10- 6.25 mg per tablet, , Disp: , Rfl: ; CALCIUM CARBONATE/VITAMIN D3(CALCIUM 600 WITH VITAMIN D3 ORAL), , Disp: , Rfl: ; multivitamin (THERAGRAN) tablet, , Disp: , Rfl:; HYDRALAZINE HCL (HYDRALAZINE ORAL), , Disp: , Rfl: terazosin (HYTRIN) 2 mg capsule, , Disp: , Rfl: Anticoagulation status: ASA, discontinued on 11/29/12. Imaging reviewed and procedural plan approved by Dr. DREW KELLY MD documented in this encounter Plan of Treatment Upcoming Encounters Date Type Specialty Care Team Description 04/06/2022 Appointment Pulmonology 04/06/2022 Office Visit Pulmonology Matt Watson MD [facility] ER PULMONARY TURNER Patel [place], [place] [address] (Wo rk) documented as of this encounter Visit Diagnoses Not on filedocumented in this encounter Care Teams Appointment Manager Relationship Specialty Start Date End Date Matt Mcdonnell DO PCP - General 11/15/12 11/29/19 [address] [place] [address] documented as of this encounter
--- OUTSIDE RECORDS SUMMARY | 2022-04-03 12:34 | XMS_ITS | Encounter Summary ---
:1935 Author Organization [facility] [place] [address] Care Team Providers Name Role Phone Matt Mcdonnell Primary Care Provider Reason for Visit Reason Comments Follow-up Encounter Details Date Type Department Care Team Description 11/24/2013 Follow-Up Hematology Oncology Yao Feliciano neoplasm of right female breast (Primary Dx); at [facility] MD Marisela ITP (idiopathic thrombocytopenic purpura ) [address] [place] [phone] ONCOLOGY [phone] [place], [place] [address] Social History Tobacco Use Types [...] Sign Reading Time Taken Comments Blood Pressure 138/51 11/24/2013 1:06 PM EDT Pulse 76 11/24/2013 1:06 PM EDT Irregular Temperature 36.6 ??C (97.9 ??F) 11/24/2013 1:06 PM EDT Respiratory Rate 16 11/24/2013 1:06 PM EDT Oxygen Saturation 95% 11/24/2013 1:06 PM EDT Inhaled Oxygen Concentration - - Weight 86.6 kg (191 lb) 11/24/2013 1:06 PM EDT Height - - Body Mass Index 39.93 02/10/2013 9:05 AM EDT documented in this encounter Progress Notes Yao Feliciano MD - 11/24/2013 8:22 AM EDT Subjective: Patient ID: Barbara Casarez is a 78 y.o. female. Problem List: 1. Cancer of the right breast, [id number], stage IA, low grade, ER/VT positive, Her-2/veronica [...] Type: Invasive ductal carcinoma Tumor Grade: Low Yimebq-Gxbqt-Exxwdizrpz Score: 5 Tubular Differentiation: 2 Mitotic Rate: 1 Nuclear Grade: 2 Tumor Size: 0.7 cm (maximum diameter) In Situ Histologic Type: Not identified (present in the core bx [id number]) Microcalcifications: Not identified Angiolymphatic Invasion: Not identified [...] steroids, dexamethasone at 40 mg per day. On presentation today, she is doing fairly well. She is tolerating the femara well. She is having continued problems with SOB which is intermittent and exertional. She has an albuterol inhaler and thisdoes seem to help with the SOB but makes her feel shaky. She has undergone a cardiac evaluation and been told that she has diastolic dysfunction. No hot flashes and no change in myalgias or arthralgias. Her appetite is good and her weight is stable. Her energy level is good. She tolerated the high dose dex fairly well. She slept pretty well. She noticed some headaches for which she took tylenol. She was wiped out however for about two days after coming off of the dex. Her breathing seemed to be better when she was on the dexamethasone. She has not noticed any bruising or bleeding. She was recently in [place] for about three weeks seeing family. She enjoyed this. Review of Systems Constitutional: Negative. HENT: Negative. Eyes: Negative. Respiratory: Negative. Cardiovascular: Negative. Gastrointestinal: Negative. Genitourinary: Negative. Musculoskeletal: Positive for arthralgias. Skin: Negative. Neurological: Negative. Hematological: Negative. Psychiatric/Behavioral: Negative. Objective: Physical Exam Vitals reviewed. Constitutional: She is oriented to person, place, [...] mood and affect. Her behavior is normal. Labs: (11/15/13) WBC/ANC - 9.08/6699, Hgb/Hct - 13.7/42.4, Plts - 36,000. BUN/Cr - 20/1.07. 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 She was diagnosed in 2012 with cancer of the right breast, pT1bN0. She underwent a partial mastectomy on 01/05/13. We talked about adjuvant systemic therapy when I saw her in 02/10. Chemotherapy was not recommended. The plan was adjuvant radiation, followed hormonal therapy with an aromatase inhibitor. She completedradiation therapy on 03/31/13. In early 04/12, she began femara, 2.5 mg per day. Thus far, she is tolerating this well and we will plan to continue. I will see her again three months. She also has ITP. The platelet count from 11/15/13 had dropped to 36K. We decided to treat with a short course of high dose dex at 40 mg per day. The platelet count has improved to 85K. Swe will observeher at this point and plan to recheck the labs every other week.. The SOB is a continued issue for her and the thing that bothers her most. It doesn't seem as though cardiac evaluation has provided a definitive reason for this. She wonders if a radiation effect on the lung has contributed and it is possible. She mentions that this was better when she was on the dexamethasone for ITP. We talked about a pulmonary evaluation and she will bring this up when she sees Dr. Mcdonnell next week. documented in this encounter Procedure Notes Provider, Scanning - 02/20/2014 3:10 PM EDTAssociated Order(s): SCAN DOC: LAB Provider, Scanning - 02/20/2014 12:23 PM EDTAssociated Order(s): SCAN DOC: LAB Provider, Scanning - 12/07/2013 3:05 PM EDTAssociated Order(s): SCAN DOC: LAB documented in this encounter Plan of Treatment Upcoming Encounters Date Type Specialty Care Team Description 04/06/2022 Appointment Pulmonology 04/06/2022 Office Visit Pulmonology Matt Watson MD [facility] ER PULMONARY [place], [place] [address] (Wo rk) documented as of this encounter Procedures Procedure Name Priority Date/Time Associated Diagnosis Comme nts LAB SCAN 02/20/2014 3:10 PM Results f or this EDT procedure are i n the results section . LAB SCAN 02/20/2014 12:23 PM Results for this EDT procedure are i n the results section . LAB SCAN 12/07/2013 3:05 PM Results f or this EDT procedure are i n the results section . documented in this encounter Results SCAN DOC: LAB (02/20/2014 3:10 PM EDT) Narrative 02/20/2014 3:10 PM EDT Procedure Note Provider, Scanning - 02/20/2014 3:10 PM EDT Scanning Provider MEDIA MGR SCAN EXT ORDR/RSLT SCAN DOC: LAB (02/20/2014 12:23 PM EDT) Narrative 02/20/2014 12:23 PM EDT Procedure Note Provider, Scanning - 02/20/2014 12:23 PM EDT Scanning Provider MEDIA MGR SCAN EXT ORDR/RSLT SCAN DOC: LAB (12/07/2013 3:05 PM EDT) Narrative 12/07/2013 3:05 PM EDT Procedure Note Provider, Scanning - 12/07/2013 3:05 PM EDT Scanning Provider MEDIA MGR SCAN EXT ORDR/RSLT documented in this encounter Visit Diagnoses Diagnosis Malignant neoplasm of right female breas t - Primary Malignant neoplasm of breast (female), u nspecified site ITP (idiopathic thrombocytopenic purpura ) Immune thrombocytopenic purpura documented in this encounter Care Teams Petroleum Terminal Plant Operator Relationship Specialty Start Date End Date Matt Mcdonnell DO PCP - General 11/15/12 11/29/19 [address] [place] [address] documented as of this encounter
--- OUTSIDE RECORDS SUMMARY | 2022-04-03 12:34 | XMS_ITS | Encounter Summary ---
:1935 Author Organization [facility] [place] [address] Care Team Providers Name Role Phone Matt Mcdonnell Primary Care Provider Reason for Visit Reason Comments Breast Cancer Encounter Details Date Type Department Care Team Description 12/21/2012 [facility] [place] [address] [place] [address] [phone] Social History Tobacco Use Types Packs/Day Years Used Date Never Smoker Sex Assigned at Date Recorded Female 10/29/2021 2:50 PM EDT documented as of this encounter Progress Notes Any Austin RN - 12/21/2012 4:49 PM EDT Barbara Casarez is a 77 y.o. yo female with right breast cancer. I met with patient, who was alone, in radiology this afternoon after L breast U/S. Pt. States the report she received verbally from the radiologist was that this was likely a papilloma, with calcifications (?) present. She states she has had L nipple discharge, sometimes clear and sometimes bleeding, since 2004. We briefly reviewed the planned course of treatment she has discussed with Dr. Beck (right breast partial mastectomy, SN Excision, followed by radiation therapy). Her preference would be to undergo left breast excision of the area reported to be papilloma at the same surgery. 15 minutes was spent in education related to day of surgery, next steps, and providing support. Patient given contact information. Patient verbalized understanding that she may contact this keno writer/runner withquestions related to upcoming treatment or scheduling concerns. SPECIFIC TEACHIN. Breast Cancer Treatment Handbook (Daylin Corbett, 2012) and DVD on newly diagnosed breast CA (shehas reviewed) was received via mail. Yakov Beck MD - 12/21/2012 2:03 PM EDT Diagnosis: Invasive ductal carcinoma of the right breast. Reason for Evaluation: This patient was referred by her primary care physician, Matt Mcdonnell D.O., for surgical opinion regarding above diagnosis. History of Present Illness: The patient is a 77-year-old relatively healthy woman who comes in today with a recent diagnosis of biopsy proven invasive ductal carcinoma of the right breast. Briefly, she had routine screening mammograms performed recently. I did review all of her breast imaging studies today including the bilateral staging MRI with Breast Radiology. She has a 9 x 4 mm spiculated density at 11 o'clock position in the right breast 8 cm from the nipple. It radiographically appeared to be new and suspicious and therefore led to an image guided biopsy, which was consistent with invasive ductal carcinoma. Additionally, the MRI indicated some enhancement in the left breast subareolar area and this is being worked up today with left breast ultrasound. Of note however, in 2003 she did have a periareolar ductal incision for duct ectasia. That was done because of nipple discharge. I have seen her several times in the past, the last in 2009 for continuing left breast nipple discharge, mainly clear and guaiac-negative. She continues to have that approximately every six months, occasionally spontaneously. She has no pain noted in either breast. She also had, as part of preop workup, a negative chest x-ray and normal CBC, basic metabolic panel, and liver function tests. Recently she did have a fall and hurt her left knee and presently is having some discomfort in that area, which I advised her to talk to her primary care doctor about. On examination she is a well-developed, well-nourished female in no apparent distress. She is oriented x3. Vital signs are per the nursing notes. Examination of the head and neck: Pupils are equal and reactive. Sclerae are nonicteric. No gross abnormalities of ear, nose, or throat. Lymphatics: No palpable cervical, supraclavicular, or axillary adenopathy. Upper extremities have full range of motion without evidence of lymphedema. Examination of the breasts reveals the breasts to be symmetrical. There are no obvious skin or nipple changes that I can detect. There is no palpable mass noted in either breast. The left breast nipple appears to be normal and I cannot express nipple discharge on compression. Assessment: As noted invasive ductal carcinoma within the right breast, unifocal, located at the 11 o'clock position. Plan: I had a long discussion with the patient regarding surgical management issues. We discussed breast preservation versus mastectomy. She is a good candidate for a wire localized right breast partial mastectomy and a sentinel lymphadenectomy. I described this procedure to her and answered all of her questions. She prefers to have the attempt at partial mastectomy. She is aware of the necessity of negative surgical margins prior to proceeding to radiation. She is also aware of potential complications of surgery including bleeding, infection, and seroma. She will be scheduled for wire localized right breast partial mastectomy as an outpatient. I will review her left breast ultrasound to determine whether there is any necessity to act on that MRI image. documented in this encounter Plan of Treatment Upcoming Encounters Date Type Specialty Care Team Description 04/06/2022 Appointment Pulmonology 04/06/2022 Office Visit Pulmonology Matt Watson MD [facility] PULMONARY [place], [place] [address] (Wo rk) documented as of this encounter Visit Diagnoses Diagnosis Breast cancer - Primary Malignant neoplasm of breast (female), u nspecified site documented in this encounter Care Teams Helicopter Specialist Relationship Specialty Start Date End Date Matt Mcdonnell DO PCP - General 11/15/12 11/29/19 [address] [place] [address] documented as of this encounter
--- OUTSIDE RECORDS SUMMARY | 2022-04-03 12:34 | XMS_ITS | Encounter Summary ---
:1935 Author Organization [facility] [place] [address] Care Team Providers Name Role Phone Matt Mcdonnell Primary Care Provider Encounter Details Date Type Department Care Team Description 01/05/2013 Orders Only Radiology Heron Wang [facility] [place] [address] [facility] [phone] DIAGNOSTIC RADIO [place] [id number] (Wo rk) Social History Tobacco Use Types [...] documented as of this encounter Progress Notes Ana Porras MD - 01/05/2013 7:45 AM EDT Procedure date: today Procedure type: RIGHT breast needle localization and sentinel node injection Special Instructions: NONE Allergies: Norvasc Medications: has a current medication list which includes the following prescription(s): lisinopril,baby aspirin, ziac, calcium carbonate/vitamin d3, multivitamin, hydralazine hcl, and terazosin, and the following Facility- Administered Medications: sodium chloride 0.9 %, lactated ringers, sodium chlor mark 0.9 %, and cefazolin. Anticoagulation status: none Imaging reviewed and procedural plan approved by Dr. ANA WANG MD documented in this encounter Plan of Treatment Upcoming Encounters Date Type Specialty Care Team Description 04/06/2022 Appointment Pulmonology 04/06/2022 Office Visit Pulmonology Matt Watson MD [facility]UL[facility]ARY [place], [place] [address] (Wo rk) documented as of this encounter Visit Diagnoses Not on filedocumented in this encounter Care Teams Phthalic Acid Purifier Relationship Specialty Start Date End Date Matt Mcdonnell DO PCP - General 11/15/12 11/29/19 [address] [place] [address] documented as of this encounter
--- OUTSIDE RECORDS SUMMARY | 2022-04-03 12:34 | XMS_ITS | Encounter Summary ---
:1935 Author Organization [facility] [place] [address] Care Team Providers Name Role Phone Matt Mcdonnell Primary Care Provider Reason for Visit Reason Comments Breast Cancer Encounter Details Date Type Department Care Team Description 04/07/2013 [facility] MD Dx[facility] [address] [place] [id number] ONCOLOGY [phone] [place], [place] [address] (Wo rk) Social History Tobacco [...] Sign Reading Time Taken Comments Blood Pressure 151/80 04/07/2013 12:42 PM EST Pulse 67 04/07/2013 12:42 PM EST Temperature 36.3 ??C (97.3 ??F) 04/07/2013 12:42 PM EST Respiratory Rate 16 04/07/2013 12:42 PM EST Oxygen Saturation 98% 04/07/2013 12:42 PM EST Inhaled Oxygen Concentration - - Weight 88.5 kg (195 lb) 04/07/2013 12:42 PM EST Height - - Body Mass Index 40.77 02/10/2013 9:05 AM EDT documented in this encounter Progress Notes Yao Feliciano MD - 04/07/2013 7:50 AM EST Subjective: Patient ID: Barbara Casarez is a 77 y.o. female. Problem List: 1. 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 A. Screening mammogram 11/15/12 [...] cancer cells with immunostaining) Stain Intensity: Strong SD immunoreactivity: Positive (>90% cancer cells with immunostaining) [...] Type: Invasive ductal carcinoma Tumor Grade: Low Crjuqy-Rzpgd-Ccdkuhmppf Score: 5 Tubular Differentiation: 2 Mitotic Rate: 1 Nuclear Grade: 2 Tumor Size: 0.7 cm (maximum diameter) In Situ Histologic Type: Not identified (present in the core bx [id number]) Microcalcifications: Not identified Angiolymphatic Invasion: Not identified [...] 2010) F. Adjuvant radiation therapy completed 03/31/13. 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 Plt count 67,000. Evaluation unrevealing and pt felt to have ITP. BM bx not done. 3. HTN 4. S/p left knee arthroscopy [...] course of adjuvant radiation therapy on 03/31/13. On presentation today, she is doing well overall. She tolerated the radiation well although this week has noted some redness and cracking of the skin underneath the breast in the fold. Her brassiere may be irritating this area. Her appetite is good and her weight is stable. Her energy level is good. She does not exercise regularly although since her knee surgery has been doing some PT and plans to continue with that. No areas of pain other than arthralgias felt to be related to DJD. No bruising or bleeding. She has had a couple of episodes in the past month in which she didn't feel well. She was little bit fatigued and noted that her HR was elevated and her BP was low. No associated chest pressure and pain, no SOB and no nausea. Review of Systems Constitutional: Negative. HENT: Negative. [...] clear and moist. No oropharyngeal exudate. Eyes: EOM are normal. No scleral icterus. Cardiovascular: Normal rate, regular rhythm and normal heart sounds. Pulmonary/Chest: Effort normal and breath sounds normal. No respiratory distress. She has no wheezes. She has no rales. Abdominal: Soft. Bowel sounds are normal. She exhibits no distension and no mass. There is no hepatosplenomegaly. There is no tenderness. There is no guarding. Genitourinary: Breast exam - No masses in either breast. Right breast with diffuse erythema, fairly mild. In fold of breast, a few very superficial ulceratedareas. Musculoskeletal: Normal range of motion. She exhibits no edema. Lymphadenopathy: She has no cervical adenopathy. She has no axillary adenopathy. Right: No supraclavicular adenopathy present. Left: No supraclavicular adenopathy present. Neurological: She is alert and oriented to person, place, and time. Skin: Skin is warm and dry. Psychiatric: She has a normal mood and affect. Her behavior is normal. Labs: WBC/ANC - 6., Hgb/Hct - 14.2/44.3, Plts - 74,000. 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 She was recently diagnosed with cancer of the right breast, pT1bN0. She underwent a partial mastectomy on 01/05/13. We talked about adjuvant systemic therapy when I saw her in 02/10.. Chemotherapy was not recommended.The plan was adjuvant radiation, followed hormonal therapy with an aromatase inhibitor. She completed radiation therapy on 03/31/13. She is doing well overall. She will try not wearing a brassiere for aperiod of team and was given a sample of silvadene. The lipid panel and bone densitometry are noted above. I will ask our clinical pipe line walker to meet with her today. I also recommended more regular weight bearing exercise, ie walking, which may help with both of these issues. Will plan to start femara,2.5 mg per day. I will see her in a month to see how she is tolerating this. She will be seeing Dr. Mcdonnell next week and I asked her to discuss the above mentioned symptoms with him to discuss further evaluation. documented in this encounter Plan of Treatment Upcoming Encounters Date Type Specialty Care Team Description 04/06/2022 Appointment Pulmonology 04/06/2022 Office Visit Pulmonology Matt Watson MD [facility] [place] [place] [address] (Wo rk) documented as of this encounter Visit Diagnoses Diagnosis Breast cancer - Primary Malignant neoplasm of breast (female), u nspecified site documented in this encounter Care Teams Shot Peening Operator Relationship Specialty Start Date End Date Matt Mcdonnell DO PCP - General 11/15/12 11/29/[address] [place] [id number] documented as of this encounter
--- OUTSIDE RECORDS SUMMARY | 2022-04-03 12:34 | XMS_ITS | Encounter Summary ---
:1935 Author Organization [facility] [place] [address] Care Team Providers Name Role Phone Matt Mcdonnell DO Primary Care Provider Encounter Details Date Type Department Care Team Description 12/05/2012 Hospital Encounter Mammography at [facility] Abnormal mammogram, [facility] [place] [address] Social History Tobacco Use Types Packs/Day [...] 02/06/2013 capsule documented as of this encounter Plan of Treatment Upcoming Encounters Date Type Specialty Care Team Description 04/06/2022 Appointment Pulmonology 04/06/2022 Office Visit Pulmonology Matt Watson MD [facility] PULMONARY [place], [place] [address] (Wo rk) documented as of this encounter Procedures Procedure Name Priority Date/Time Associated Comments Diagnosis MAMMO DIRECT DIGITAL Routine 12/05/2012 1:01 Abnormal Resu lts for UNILATERAL PM EDT mammogram, this procedure unspecified are in the results section. MOLECULAR GENETICS REPORT Routine 12/05/2012 11:45 Results for AM EDT this procedure are in the results section. IMMUNOHISTOCHEMISTRY REPORT Routine 12/05/2012 11:45 Results for AM EDT this procedure are in the results section. SURGICAL PATHOLOGY REPORT Routine 12/05/2012 11:45 Results for AM EDT this procedure are in the results section. documented in this encounter Results Mammo direct digital unilateral (12/05/2012 1:01 PM EDT) Anatomical Region Laterality Modality Breast N/A Mammography Specimen (Source) Anatomical Collection Method Collection Time Re ceived Time Location / / Volume Laterality 12/05/2012 1:01 PM EDT Impressions 12/07/2012 2:23 PM EDT Impression: concordant Recommendation: definitive treatment pre ceded by bilateral breast MRI. As discussed with Zee Hermelindo by Dr. Feliz ordonez on 12/07/12. ?? I was present with the resident, Dr. Loco galarza, for the ellison component(s) of the procedure and otherwise remained immedia tely available for the duration of the procedure. I attest to having personally viewed the images/test and approve the above interpretation. Film and interpretation reviewed by the attending Narrative 12/07/2012 2:23 PM EDT VACUUM ASSISTED ULTRASOUND GUIDED BIOPSY OF THE RIGHT BREAST ON 12/05/12: Informed consent was obtained. Using alia rile technique and 1% Lidocaine used for local anesthesia, a skin incision wa s made and a biopsy was performed using Ultrasound for image guidance. Clinical indication: Right breast 6mm ma ss in the upper, outer quadrant at 1100, 6cm from the nipple. 12-gauge Atec US device 15 core biopsy specimens obtained. ?? An Atec US 13 Cylinder marker clip was p laced. Cranio-caudal and lateral digital mammography performed to determi ne biopsy marker placement, which was shown to be at the biopsy site. Satisfactory sampling was obtained. There were no procedural complications. Imaging diagnosis: Invasive cancer versu s fibrosis versus PASH. Pathologic diagnosis: Invasive ductal ca rcinoma Procedure Note Drew Kelly MD - 12/07/2012Format ting of this note might be different from the original. VACUUM ASSISTED ULTRASOUND GUIDED BIOPSY OF THE RIGHT BREAST ON 12/05/12: Informed consent was obtained. Using alia rile technique and 1% Lidocaine used for local anesthesia, a skin incision wa s made and a biopsy was performed using Ultrasound for image guidance. Clinical indication: Right breast 6mm ma ss in the upper, outer quadrant at 1100, 6cm from the nipple. 12-gauge Atec US device 15 core biopsy specimens obtained. An Atec US 13 Cylinder marker clip was p laced. Cranio-caudal and lateral digital mammography performed to determi ne biopsy marker placement, which was shown to be at the biopsy site. Satisfactory sampling was obtained. There were no procedural complications. Imaging diagnosis: Invasive cancer versu s fibrosis versus PASH. Pathologic diagnosis: Invasive ductal ca rcinoma IMPRESSION Impression: concordant Recommendation: definitive treatment pre ceded by bilateral breast MRI. As discussed with Ms. Casarez by Dr. Feilz ordonez on 12/07/12. I was present with the resident, Dr. Loco galarza, for the ellison component(s) of the procedure and otherwise remained immedia tely available for the duration of the procedure. I attest to having personally viewed the images/test and approve the above interpretation. Film and interpretation reviewed by the attending Charity Wells MD IMG MAMMO ORDERABLES Molecular Genetics Report (12/05/2012 11:45 AM EDT) Component Value Ref Test Analysis Performed At [facility] Method Time Signature Molecular CERNER Report ? [facility] ? Provider: ?? DREW KELLY ?? Pt. Name: ?? DEVAUGHN DEVI ? Acc #: ?[id number] ?Pt. MRN: ?[id number] ? Col Date: ?? 12/05/2012 ?/Sex: ?1935,(77 years),Female ? Rec Date: ?? 12/05/2012 ?LOC: ?OPW ? MOLECULAR GENETIC STUDIES ? ---REPORT OF DNA ANALYSIS--- ? TEST: ??HER2 FISH, BREAST CANCER ? METHOD: ??Fluorescence in situ hybridization (FISH) w ith probe for ? chromosome 17 centrom ere (17p11.1-q11.1) and locus specific probe for the ? HER2 gene locus (17q11.2-q12). ? SAMPLE ANALYZED: A2-05 ? RESULT: ?NEGATIVE FOR HER2/VERONICA AMPLIFICATION ?TOTA L # SIGNALS/TOTAL # NUCLEI COUNTED FOR HER2 PROBE = 88 ?TOTA L # SIGNALS/TOTAL # NUCLEI COUNTED FOR CEP-17 PROBE = 84 ?HER2 TO CEP-17 RATIO = 1.1 ? (NORMAL RANGE <1.8) ? Interpretation: ??Par affin-embedded tissue sections were submitted for HER2 ? gene amplification an alysis by FISH. ??Direct analysis was performed using ? the Path Vysion Kit. ??Slide adequacy and signal enumeration were evaluated ? and satisfactory for both control and patient slides. ??The results of this ? analysis is based on the enumeration of 4 0 interphase nuclei from non- ? overlapping tumor brittani ls. ??A signal ratio derived from the HER2 probe and ? the CEP-17 centromere probe of >2.2 is considered positive for HER2 gene ? amplification. ? 2008 CAP guidelines s haider that samples with a HER2 to CEP-17 ratio of less ? than 1.8 are normal. Specimen with a HER2 to CEP-17 range of 1.8 to 2.2 are ? considered equivocal. Specimen with a HER2 to CEP-17 ratio of greater than ? 2.2 are considered amplified. ? This test is approved by the U.S.FDA for clinical humberto gnostic use. ? Reviewed by: ? Ewa Sky MD ? Front End Manager, Molecular Pathology ? _ ? Verified date: ??12/09/12 ??HAB ? Verified by: ?Asya BOOTH, Ewa Peralta ? (Electronic Signature) Specimen (Source) Anatomical Collection Method Collection Time Re ceived Time Location / / Volume Laterality 12/05/2012 11:45 AM EDT Drew Kelly MD PATHOLOGY/CYTOLOGY ORDERABLE S Performing Organization Address City/State/ZIP Code Phon e Number [place] [id number] [facility] Immunohistochemistry Report (12/05/2012 11:45 AM EDT) Component Value Ref Test Analysis Performed Pathologis t Range Method Time At Signature Immunohistochemistry CERNER Report ? [facility] ? Provider: ?? DREW KELLY ?? Pt. Name: ?? DEVAUGHN DEVI ? Acc #: ?[id number] ?Pt. MRN: ?[id number] ? Col Date: ?? 12/05/2012 ?/Sex: ?1935,(77 years),Female ? Rec Date: ?? 12/05/2012 ?LOC: ?OPW ? IMMUNOHISTOCHEMISTRY ? ---Interpretation--- ? Immunohistochemistry Studies: ? Formalin-fixed, paraffin-embedded tissue sections are studied for ER/MN ? using the B-SA system technique with appr opriate positive and negative ? controls. ? ---Diagnosis--- ? Specimen: ? Right breast, core needle biopsy ? Histologic type: ?Invasive ductal carcinoma ? ER immunoreactivity: ??Positive ( >90% cancer cells with immunostaining) ? Stain Intensity: Str laura ? MN immunoreactivity: ??Positive ( >90% cancer cells with immunostaining) ? Stain Intensity: Str laura ? HER2/veronica expression by FISH: see separate report ? *Diagnostic ellison for hormone receptors (ASCO/CAP GUIDE LINES, 2010): ? Negative immunoreactivity: <1% tumor cells wi th immunostaining ? Positive immunoreactivity: >1% tumor cells wi th immunostaining ? 12/07/12 ? ALYSSA ? 12/07/12 Verified by: ? Aditya BOOTH, Arpit Jennings ? Pathologist ? (Electronic Si gnature) ? The attending pathologist whose signature appears o n this report has ? reviewed all diagnostic slides and has edited the yamilet ss and/or ? microscopic portion of the report in rendering the fi nal pathologic ? diagnosis. Specimen (Source) Anatomical Collection Method Collection Time Re ceived Time Location / / Volume Laterality 12/05/2012 11:45 AM EDT Drew Kelly MD PATHOLOGY/CYTOLOGY ORDERABLE S Performing Organization Address City/State/[place] [address] [facility] Surgical Pathology Report (12/05/2012 11:45 AM EDT) [facility] Method Time Signature Surgical [facility] Pathology ? [facility] Report ? Provider: ?? DREW KELLY ?? Pt. Name: ?? TOPHER Thomas, DEVAUGHN Rhoades ? Acc #: ?[id number] ?Pt. MRN: ?[id number] ? Col Date: ?? 12/05/2012 ?/Sex: ?1935,(77 years),Female ? Rec Date: ?? 12/05/2012 ?LOC: ?OPW ? SURGICAL PATHOLOGY ? ---Pathologic Diagnosis--- ? Needle biopsies: ?Right breast ? Diagnosis: ?1. Invasive d uctal carcinoma (see Comment) ? 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 Microcalcifications: ??N/A ? CR-0 ? 12/06/12 ? ALYSSA ? 12/06/12 Verified by: ? Arpit Burgess MD ? Pathologist ? (Electronic Si gnature) ? The attending pathologist whose signature appears o n this report has ? reviewed all diagnostic slides and has edited the yamilet ss and/or ? microscopic portion of the report in rendering the fi nal pathologic ? diagnosis. ? ---Comment--- ? Studies for ER, MN, a nd HER2 have been ordered; results will be issued in ? an addendum. ? ---Gross Description--- ? A - Labeled/Fixative: Right breast mass, formalin. ? Quantity/Size: 13, ranging from 0.7-2.6 cm. ? Tissue Description: Congested yel low to knox-white needle core biopsies ? with a separate 2.6 x 2.0 x 0.3 cm aggregate of irregular yellow focally ? hemorrhagic fibrofatty tissue fragments. ? Ischemic Time: 4 minutes. ? Sections/Processing: (T4) ??shb ? ---Clinical Information--- ? Specimen Submitted: ? A - Right breast mass ? Clinical History: ? Right breast mass ? Clinical Diagnosis: ? Invasive cancer, fibrosis, PASH ? Report to: ? [facility] ? Provider: ?? DREW KELLY ?? Pt. Name: ?? TOPHER Thomas, DEVAUGHN Rhoades ? Acc #: ?[id number] ?Pt. MRN: ?[id number] ? Col Date: ?? 12/05/2012 ?/Sex: ?1935,(77 years),Female ? Rec Date: ?? 12/05/2012 ?LOC: ?OPW ? SURGICAL PATHOLOGY ? Yuri Alcala MD ? [address] [place] [address] ? [place] [address] Specimen (Source) Anatomical Collection Method Collection Time Re ceived Time Location / / Volume Laterality 12/05/2012 11:45 AM EDT Drew Kelly MD PATHOLOGY/CYTOLOGY ORDERABLE S Performing Organization Address City/State/ZIP Code Phon e Number [address] LABORATORY [facility] documented in this encounter Visit Diagnoses Diagnosis Abnormal mammogram, unspecified documented in this encounter Care Teams Environmental Education Specialist Relationship Specialty Start Date End Date Matt Mcdonnell DO PCP - General 11/15/12 11/29/19 [address] [place] [address] documented as of this encounter
--- OUTSIDE RECORDS SUMMARY | 2022-04-03 12:34 | XMS_ITS | Encounter Summary ---
:1935 Author Organization [facility] Address [facility] [place] [address] Care Team Providers Name Role Phone Matt Mcdonnell Primary Care Provider Reason for Visit Reason Comments Radiation Treatment Encounter Details Date Type Department Care Team Description 03/14/2013 Office Visit Radiation Oncology at [facility] WaldronNargis MD Breast CA (Primary Dx) [address] [place], [place] RADIATION ONCOL OGY [address] [place] [address] [phone] Social History Tobacco Use Types Packs/Day Years [...] Reading Time Taken Comments Blood Pressure 152/67 03/14/2013 1:04 PM EDT Pulse 55 03/14/2013 1:04 PM EDT Temperature 36.3 ??C (97.3 ??F) 03/14/2013 1:04 PM EDT Respiratory Rate 18 03/14/2013 1:04 PM EDT Oxygen Saturation 98% 03/14/2013 1:04 PM EDT Inhaled Oxygen Concentration - - Weight 87.5 kg (193 lb) 03/14/2013 1:04 PM EDT Height - - Body Mass Index 40.35 02/10/2013 9:05 AM EDT documented in this encounter Patient Instructions Patient InstructionsNorma Kowalski MD - 03/14/2013 1:46 PM EDT I will see you next Tues., 03/21/13 after radiotherapy. documented in this encounter Progress Notes Norma Kowalski MD - 03/14/2013 1:42 PM EDT DIAGNOSIS: Breast, R, IDC, low gr, ER+IL+, Zvq3eil-, s/p lumpectomy & SNB; stage I, pT1b pN0; AIafter xrt under consideration. CURRENT TREATMENT DOSE: 18.62 Gy ANTICIPATED TOTAL DOSE: 52.56 Gy Current # of xrt received: 7 Anticipated total # of xrt txs: 20 Evaluation of port verification films: Approved. For details, see electronic film record in [employer]. Changes in Medical Condition: None. Denies soreness/itchiness. Not using pilo's cream. Had CBC &diff drawn 03/08 @ [facility] Pain?: No. Physical Exam: BP 152/67 Pulse 55 Temp 36.3 ??C (97.3 ??F) (Oral) Resp 18 Wt 87.544 kg (193 lb) SpO2 98% A&Ox3, in NAD. Minimal erythema of skin w/in irrad'd area. Labs: CBC 02/14/13: WBC 10, Hgb 14.2, Hct 44.2, Plts 75 K, ANC 6.0. Response to xrt: As expected. Irradiation Related Symptoms: Skin rxn. Treatment for Symptom Control: None needed. Pain Management: None needed. Recommendation on Continuing Course of xrt: Cont. CBC result from 03/08 requested. documented in this encounter Procedure Notes Provider, Scanning - 03/14/2013 4:39 PM EDTAssociated Order(s): SCAN DOC: LAB documented in this encounter Plan of Treatment Upcoming Encounters Date Type Specialty Care Team Description 04/06/2022 Appointment Pulmonology 04/06/2022 Office Visit Pulmonology Matt Watson MD [facility] ER PULMONARY [place], [place] [address] (Wo rk) documented as of this encounter Procedures Procedure Name Priority Date/Time Associated Diagnosis Comme nts LAB SCAN 03/14/2013 4:39 PM Results f or this EDT procedure are i n the results section . documented in this encounter Results SCAN DOC: LAB (03/14/2013 4:39 PM EDT) Narrative 03/14/2013 4:39 PM EDT Procedure Note Provider, Scanning - 03/14/2013 4:39 PM EDT Scanning Provider MEDIA MGR SCAN EXT ORDR/RSLT documented in this encounter Visit Diagnoses Diagnosis Breast CA - Primary Malignant neoplasm of breast (female), u nspecified site documented in this encounter Care Teams Glass Crusher Relationship Specialty Start Date End Date Matt Mcdonnell DO PCP - General 11/15/12 11/29/19 [address] [place] [address] documented as of this encounter
--- OUTSIDE RECORDS SUMMARY | 2022-04-03 12:34 | XMS_ITS | Encounter Summary ---
:1935 Author Organization [facility] [place] [address] Care Team Providers Name Role Phone Matt Mcdonnell Martha KHAN Primary Care Provider Reason for Visit Reason Comments On Treatment Visit Encounter Details Date Type Department Care Team Description 03/07/2013 Office Visit Radiation Oncology Norma Kowalski, ITP (i diopathic thrombocytopenic purpura) (Primary Dx); at [address] [address] RADIATION [phone] ON[place]OG[place] [id number] Social History Tobacco Use Types Packs/Day Years [...] Sign Reading Time Taken Comments Blood Pressure 157/65 03/07/2013 2:00 PM EDT Pulse 55 03/07/2013 2:00 PM EDT Temperature 36.4 ??C (97.5 ??F) 03/07/2013 2:00 PM EDT Respiratory Rate 20 03/07/2013 2:00 PM EDT Oxygen Saturation 98% 03/07/2013 2:00 PM EDT Inhaled Oxygen Concentration - - Weight - - Height - - Body Mass Index - - documented in this encounter Progress Notes Norma Kowalski MD - 03/07/2013 3:01 PM EDT DIAGNOSIS: Breast, R, IDC, low gr, ER+ID+, Cqr3dsd-, s/p lumpectomy & SNB; stage I, pT1b pN0; AIafter xrt under consideration. CURRENT TREATMENT DOSE: 5.32 Gy ANTICIPATED TOTAL DOSE: 52.56 Gy Current # of xrt received: 2 Anticipated total # of xrt txs: 20 Evaluation of port verification films: Approved. For details, see electronic film record in [employer]. Changes in Medical Condition: None. Pain?: No. Physical Exam: BP 157/65 Pulse 55 Temp 36.4 ??C (97.5 ??F) (Oral) Resp 20 SpO2 98% A&Ox3, in NAD. Labs: CBC 02/14/13: WBC 10, Hgb 14.2, Hct 44.2, Plts 75 K, ANC 6.0. Response to xrt: As expected. Irradiation Related Symptoms: None. Treatment for Symptom Control: None needed. Pain Management: None needed. Recommendation on Continuing Course of xrt: Cont. Given ITP, check CBC w/in next 1 - 2 wks. documented in this encounter Plan of Treatment Upcoming Encounters Date Type Specialty Care Team Description 04/06/2022 Appointment Pulmonology 04/06/2022 Office Visit Pulmonology Matt Watson MD [facility] PULMONARY [place], [place] [address] (Wo rk) documented as of this encounter Visit Diagnoses Diagnosis ITP (idiopathic thrombocytopenic purpura ) - Primary Immune thrombocytopenic purpura Breast CA Malignant neoplasm of breast (female), u nspecified site documented in this encounter Care Teams Interchange Agent Relationship Specialty Start Date End Date Matt Mcdonnell DO PCP - General 11/15/12 11/29/19 [address] [place] [address] documented as of this encounter
--- OUTSIDE RECORDS SUMMARY | 2022-04-03 12:34 | XMS_ITS | Encounter Summary ---
:1935 Author Organization [facility] [place] [address] Care Team Providers Name Role Phone Matt Mcdonnell DO Primary Care Provider Encounter Details Date Type Department Care Team Description 12/29/2012 Telephone General Surgery at [facility] [place] [place] [address] Social History Tobacco Use Types Packs/Day Years Used Date Never Smoker Sex Assigned at Date Recorded Female 10/29/2021 2:50 PM EDT documented as of this encounter Miscellaneous Notes Telephone Encounter - Irlanda Stewart RN - 12/29/2012 9:56 AM EDT Pt called to report that she was started on 325 mg aspirin today for blood clot prevention. She is scheduled to have breast surgery with Dr. Beck on 01/05/13. Discussed with Dr. Beck. Pt instructed to take 81 mg aspirin between now and the day of surgeryand she can re-start the 325 mg dose on the day after surgery. Pt notified and verbalizes her understanding of the instructions. documented in this encounter Plan of Treatment Upcoming Encounters Date Type Specialty Care Team Description 04/06/2022 Appointment Pulmonology 04/06/2022 Office Visit Pulmonology Matt Watson MD [facility] PULMONARY [place] [address] (Wo rk) documented as of this encounter Visit Diagnoses Not on filedocumented in this encounter Care Teams Warehouse Logistics Coordinator Relationship Specialty Start Date End Date Matt Mcdonnell DO PCP - General 11/15/12 11/29/19 [address] [place] [address] documented as of this encounter
--- OUTSIDE RECORDS SUMMARY | 2022-04-03 12:34 | XMS_ITS | Encounter Summary ---
:1935 Author Organization [facility] [place] [address] Care Team Providers Name Role Phone Matt Mcdonnell DO Primary Care Provider Encounter Details Date Type Department Care Team Description 12/26/2012 Orders Only General Surgery at [facility] [place] [facility] [place] [facility] [place] [address] GENERAL SURGERY [phone] [place], [place] [address] Social History Tobacco Use Types Packs/Day Years Used Date Never Smoker Sex Assigned at Date Recorded Female 10/29/2021 2:50 PM EDT documented as of this encounter Plan of Treatment Upcoming Encounters Date Type Specialty Care Team Description 04/06/2022 Appointment Pulmonology 04/06/2022 Office Visit Pulmonology Matt Watson MD [facility] PULMONARY DISEMIRA Patel [place], [place] [address] (Wo rk) documented as of this encounter Results Mammo specimen (01/05/2013 10:25 AM EDT) Anatomical Region Laterality Modality Breast N/A Mammography Specimen (Source) Anatomical Collection Method Collection Time Re ceived Time Location / / Volume Laterality 01/05/2013 10:25 AM EDT Narrative 01/05/2013 6:04 PM EDT NEEDLE LOCALIZATION AND SPECIMEN RADIOGRAPH OF THE RIGHT BREAST ON 01/05/13: ?? CLINICAL INDICATION: Right breast spicul ated density at 1100, 8cm from the nipple (biopsy proven invasive ductal ca rcinoma). ?? Needle localization of the suspicious ar ea (clip) in the Right breast was performed with mammographic guidance. ?? Cranio-caudal and 90&ordm; digital mammo graphy views were obtained following localization to document wire position. ?? Specimen mammography was performed. The suspicious area (residual mass and wire) is included in the specimen. ? The specimen arrived in the Radiology De partment at 10:10am. ?? Report of specimen called to the OR at 1 0:15am. Procedure Note Ana Porras MD - 12/2012 NEEDLE LOCALIZATION AND SPECIMEN RADIOGR [facility] OF THE RIGHT BREAST ON 01/05/13: CLINICAL INDICATION: Right breast spicul ated density at 1100, 8cm from the nipple (biopsy proven invasive ductal ca rcinoma). Needle localization of the suspicious ar ea (clip) in the Right breast was performed with mammographic guidance. Cranio-caudal and 90&ordm; digital mammo graphy views were obtained following localization to document wire position. Specimen mammography was performed. The suspicious area (residual mass and wire) is included in the specimen. The specimen arrived in the Radiology De partment at 10:10am. Report of specimen called to the OR at 1 0:15am. Yakov Beck MD IMG MAMMO ORDERABLES Mammo sentinel node injection (01/05/2013 9:10 AM EDT) Anatomical Region Laterality Modality Breast N/A Mammography Specimen (Source) Anatomical Collection Method Collection Time Re ceived Time Location / / Volume Laterality 01/05/2013 9:10 AM EDT Narrative 01/05/2013 6:04 PM EDT SENTINEL NODE INJECTION OF THE RIGHT BREAST ON 01/05/13: ?? CLINICAL INDICATION: Please inject the R ight breast cancer for lymphatic mapping. ?? A sentinel node injection was performed of the Right breast using 0.210 milliCuries of Tc-99m sulfur colloid. Bee lf the dose was injected intradermally above the lesion, and half intraparenchy barbra around the lesion. No imaging was performed. ?? [place] node tracer injection performed under Dr. Costa's general supervision. ?? I performed the procedure without a resi dent. ? Procedure Note Ana Porras MD - 12/2012 SENTINEL NODE INJECTION OF THE RIGHT [place]AS[place] AST ON 01/05/13: CLINICAL INDICATION: Please inject the R ight breast cancer for lymphatic mapping. A sentinel node injection was performed of the Right breast using 0.210 milliCuries of Tc-99m sulfur colloid. Bee lf the dose was injected intradermally above the lesion, and half intraparenchy barbra around the lesion. No imaging was performed. [place] node tracer injection performed under Dr. Costa's general supervision. I performed the procedure without a resi dent. Yakov Beck MD IMG MAMMO ORDERABLES Mammo needle localization (01/05/2013 9:09 AM EDT) Anatomical Region Laterality Modality Breast N/A Mammography Specimen (Source) Anatomical Collection Method Collection Time Re ceived Time Location / / Volume Laterality 01/05/2013 9:09 AM EDT Narrative 01/05/2013 6:04 PM EDT NEEDLE LOCALIZATION AND SPECIMEN RADIOGRAPH OF THE RIGHT BREAST ON 01/05/13: ?? CLINICAL INDICATION: Right breast spicul ated density at 1100, 8cm from the nipple (biopsy proven invasive ductal ca rcinoma). ?? Needle localization of the suspicious ar ea (clip) in the Right breast was performed with mammographic guidance. ?? Cranio-caudal and 90&ordm; digital mammo graphy views were obtained following localization to document wire position. ?? Specimen mammography was performed. The suspicious area (residual mass and wire) is included in the specimen. ? The specimen arrived in the Radiology De partment at 10:10am. ?? Report of specimen called to the OR at 1 0:15am. Procedure Note Ana Porras MD - 12/2012 NEEDLE LOCALIZATION AND SPECIMEN RADIOGR [facility] OF THE RIGHT BREAST ON 01/05/13: CLINICAL INDICATION: Right breast spicul ated density at 1100, 8cm from the nipple (biopsy proven invasive ductal ca rcinoma). Needle localization of the suspicious ar ea (clip) in the Right breast was performed with mammographic guidance. Cranio-caudal and 90&ordm; digital mammo graphy views were obtained following localization to document wire position. Specimen mammography was performed. The suspicious area (residual mass and wire) is included in the specimen. The specimen arrived in the Radiology De partment at 10:10am. Report of specimen called to the OR at 1 0:15am. Yakov Beck MD IMG MAMMO ORDERABLES documented in this encounter Visit Diagnoses Diagnosis Breast cancer - Primary Malignant neoplasm of breast (female), u nspecified site Breast cancer - Primary Malignant neoplasm of breast (female), u nspecified site documented in this encounter Care Teams Electrical And Radio Aircraft Mechanic Relationship Specialty Start Date End Date Matt Mcdonnell DO PCP - General 11/15/12 11/29/19 [address] [place] [address] documented as of this encounter
--- OUTSIDE RECORDS SUMMARY | 2022-04-03 12:34 | XMS_ITS | Encounter Summary ---
:1935 Author Organization [facility] [place] [address] Care Team Providers Name Role Phone Fritzgunjan Matt Thomas DO Primary Care Provider Encounter Details Date Type Department Care Team Description 12/09/2012 [place] En[place] [facility] [place] [address] [place] [address] [place] [address] Social History Tobacco Use Types Packs/Day [...] Office Visit Pulmonology Matt Watson MD [facility] PULMON[facility] [place] Amanda [place], [place] [address] (Wo rk) documented as of this encounter Procedures Procedure Name Priority Date/Time Associated Diagnosis Comme nts XR CHEST PA AND Routine 12/09/2012 4:44 PM Breast cancer Resul ts for this LATERAL EDT procedure are i n the results section. documented in this encounter Results XR chest routine PA & lateral (12/09/2012 4:44 PM EDT) Anatomical Region Laterality Modality Chest N/A Radiographic Imaging Specimen (Source) Anatomical Collection Method Collection Time Re ceived Time Location / / Volume Laterality 12/09/2012 4:44 PM EDT Narrative 12/09/2012 4:58 PM EDT Examination CHEST ROUTINE PA+LAT Clinical History NEWLY DX BREAST CANCER Comparison None Technique Findings The lungs are clear. ??The cardiomediast inal silhouette is borderline enlarged. ?? No pleural effusion or significant bony abnormality is seen. Impression No evidence of metastatic disease. Borderline cardiomegaly. Procedure Note Juan Jose Merchant MD - 12/09/2012Formatt ing of this note might be different from the original. Examination CHEST ROUTINE PA+LAT Clinical History NEWLY DX BREAST CANCER Comparison None Technique Findings The lungs are clear. The cardiomediastin al silhouette is borderline enlarged. No pleural effusion or significant bony abnormality is seen. Impression No evidence of metastatic disease. Borderline cardiomegaly. Courtney Dill MD IMG DX ORDERABLES documented in this encounter Visit Diagnoses Diagnosis Breast cancer Malignant neoplasm of breast (female), u nspecified site documented in this encounter Care Teams Factory Helper Relationship Specialty Start Date End Date Matt Mcdonnell DO PCP - General 11/15/12 11/29/19 [address] [place] [address] documented as of this encounter
--- OUTSIDE RECORDS SUMMARY | 2022-04-03 12:34 | XMS_ITS | Encounter Summary ---
:1935 Author Organization [facility] [place] [address] Care Team Providers Name Role Phone Matt Mcdonnell DO Primary Care Provider Encounter Details Date Type Department Care Team Description 02/14/2013 Initial consult Radiation Oncology a t [address] [phone] Social History Tobacco Use Types [...] Office Visit Pulmonology Matt Watson MD [facility] DR ANEESH Patel [place], [place] [address] (Wo rk) documented as of this encounter Visit Diagnoses Not on filedocumented in this encounter Care Teams Barrelhead Inspector Relationship Specialty Start Date End Date Matt Mcdonnell DO PCP - General 11/15/12 11/29/19 [address] [place] [address] documented as of this encounter
--- OUTSIDE RECORDS SUMMARY | 2022-04-03 12:34 | XMS_ITS | Encounter Summary ---
:1935 Author Organization [facility] [place] [address] Care Team Providers Name Role Phone RoMatt dejesus Primary Care Provider Encounter Details Date Type Department Care Team Description 12/22/2012 Notes Only Care Management Viridiana Toure, [place] [phone] Social History Tobacco Use Types Packs/Day Years Used Date Never Smoker Sex Assigned at Date Recorded Female 10/29/2021 2:50 PM EDT documented as of this encounter Progress Notes Viridiana Toure MSW - 12/22/2012 9:02 AM EDT OFFICE OF CARE MANAGEMENT/CONTINUING NAVAL DESIGNER Reason for referral: Barbara Casarez is a 77 year old, female who was seen in the general surgery clinic for a surgical consult with Dr. Beck as she was recently diagnosed with IDC, DCIS, LCIS. After meeting with Dr. Beck, pt has decided to have a lumpectomy and sentinel node dissection followed by radiation therapy. Pt will receive her radiation therapy at the [facility] [place], [place] as it is closer to her home. Advance Directives: Pt states she has completedher advance directives and was asked to provide copies for her medical record. Pt states she has designated her daughter, Mariola, as she her DPOA for health care. Living arrangements/social supports: Pt lives alone in [place], [place]. She lost her in September from lung cancer. Pt states she has support from her children, friends, and family members. 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 She has Medicare and supplemental insurance ([employer]ARP). Tobacco/drug/alcohol history: Pt states she does not smoke and drinks occasionally. Adjustment to illness/mental health concerns: Pt appears to be coping well with her newly diagnosed breast cancer. She recently injured her knee and was unable to bear weight today. Pt lost her husbandin September of 2011 and continues to grieve his . Pt has a good support system from her family and friends. 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 [facility] reviewed the support and services available to pt in the Cancer Centers. Strengths: Pt has support from family and friends. Plan: Dee Huerta and I will continue to follow to assess and assist with psychosocial needs as she progresses through treatment. documented in this encounter Plan of Treatment Upcoming Encounters Date Type Specialty Care Team Description 04/06/2022 Appointment Pulmonology 04/06/2022 Office Visit Pulmonology Matt Watson MD [facility] PULMON[facility] TURNER Patel [place], [place] [address] (Wo rk) documented as of this encounter Visit Diagnoses Not on filedocumented in this encounter Care Teams Salad Bar Clerk Relationship Specialty Start Date End Date Matt Mcdonnell DO PCP - General 11/15/12 11/29/19 [address] [place] [address] documented as of this encounter
--- OUTSIDE RECORDS SUMMARY | 2022-04-03 12:34 | XMS_ITS | Encounter Summary ---
:1935 [place] [address] Care Team Providers Name Role Phone Matt Mcdonnell Martha KHAN Primary Care Provider Encounter Details Date Type Department Care Team Description 01/05/2013 Hospital Encounter Same Day Program at [facility] Gadsdenni Rivas MD (Primary Dx) [place] [address] [place] [phone] Social History Tobacco Use Types Packs/Day Years [...] Sign Reading Time Taken Comments Blood Pressure 130/44 01/05/2013 11:37 AM EDT Pulse 63 01/05/2013 11:37 AM EDT Temperature 36.3 ??C (97.3 ??F) 01/05/2013 11:12 AM EDT Respiratory Rate 16 01/05/2013 11:37 AM EDT Oxygen Saturation 96% 01/05/2013 11:37 AM EDT Inhaled Oxygen Concentration - - Weight 88.5 kg (195 lb) 01/05/2013 7:13 AM EDT Height 149.9 cm (4' 11) 01/05/2013 7:13 AM EDT Body Mass Index 39.39 01/05/2013 7:13 AM EDT documented in this encounter Discharge Instructions Discharge InstructionsShira Pickering RN - 01/05/2013 12:16 PM EDT POST ANESTHESIA INSTRUCTIONS Go home, rest, use caution on stairs. Change positions slowly. Do not smoke if you are alone. Diet light to regular as tolerated today. If nausea occurs start with clear liquids and progress slowly. No driving, operating machinery, alcoholic beverages and no important decisions for 24 hours. Monitor IV site for signs and symptoms of infection: increasing redness, swelling, foul drainage, ifoccurs contact M.D. Patients who have had endotrachial tubes (this tube, used by anesthesia department, is passed down your throat after you are asleep, to ensure safe air passage during your operation). A sore throat is normal due to the tube. Cold liquids or soothing lozenges will help ease the discomfort. The generalized muscle aches are due to the medication given to you just before the tube is inserted. As the medication wears off, you may develop muscle soreness, which usually goes away in 12-24 hours. Narcotic Bowel Orders 1. Drink plenty of fluid 2. Take with food or milk to help prevent nausea/vomiting 3. Get extra fiber in your diet 4. May need over the counter stool softner (colace 100mg twice per day) 5. If no bowel movement within 3 days, you may need to take a laxative Patient InstructionsAdarsh Csaas - 01/05/2013 11:13 AM EDT Instructions Following Breast Surgery: Wound Care: Keep the dressing on the incision for the couple days, then you may remove it and leave the incisionopen to air. You may shower tomorrow morning. Do not scrub the area vigorously for the next 1 week. Do not soak the incision(s) under water for the next 2 weeks (i.e. soaking in bath or swimming) as this may promote a wound infection. You may remove the dressing if it becomes saturated or wet and replace it with dry gauze as needed for seepage/comfort. If there are pieces of tape directly on the incision (steri-strips), please leavethem on until they fall off on their own. You may trim them back as they begin to peel up. ICE: You may apply ice to incision during the first 48 hours following surgery to help limit swelling, bruising, and discomfort. You may also find wearing a bra for the first two days following surgerywill help with discomfort, although this is not absolutely necessary. Your stitches will dissolve and do not need to be removed. Activity: As tolerated by your comfort level. Call Doctor for: Please call if you notice worsening redness or drainage from your incision(s) lasting longer than 5 days after your surgery, any foul- smelling drainage from the incision, pain not controlled by pain medications, persistent nausea and vomiting, or for any fevers greater than 101.3 F. The number for questions is [phone] before 5 PM weekdays. Pain Medication: No driving for 8 hours after any dose of opioid pain medication if one was prescribed for you. You may use ibuprofen (motrin, advil) or tylenol in addition to this medication if your pain is not totally controlled by the opioid. Follow-up: A follow-up appointment will be scheduled with when he calls you next week with your pathology results. If you do not receive this information or need to change the date of yourappointment please call [phone]. Your follow-up is very important to us. Please call [phone] (clinic number) if any changes need to be made to your appointment time or if you have any questions. documented in this encounter Medications at Time of Discharge Medication Sig Dispensed Refills Start Date End Date CALCIUM CARBONATE/VITAMIN 0 02/25/2010 D3 (CALCIUM 600 WITH VITAMIN D3 ORAL) multivitamin (THERAGRAN) 0 02/25/2010 tablet ibuprofen (ADVIL;MOTRIN) Take 1 tablet by 30 tablet 12 01/0511/02/2014 600 mg tablet mouth every 6 hours as needed for Pain. acetaminophen (TYLENOL) Take 2 tablets by 30 tablet 1 01/0506/04/2016 325 mg tablet mouth every 4 hours as needed for Pain. OXYcodone (ROXICODONE) 5 Take 1 tablet by 84 tablet 0 01/0501/24/2013 mg immediate release mouth every 4 hours tablet as needed for Pain. lisinopril Take 40 mg by mouth 0 02/23 (PRINIVIL;ZESTRIL) 20 mg daily. tablet aspirin (BABY ASPIRIN) 81 0 02/25/2010 05/18/2014 mg chewable tablet bisoprolol-hydrochlorothia 0 0 04/26/2015 zide (ZIAC) 10-6.25 mg per tablet HYDRALAZINE HCL 0 02/25/2010 4 (HYDRALAZINE ORAL) terazosin (HYTRIN) 2 mg 0 02/25/2010 0 02/06/2013 capsule documented as of this encounter Progress Notes Shira Pickering RN - 01/05/2013 11:23 AM EDT Pt awake, disoriented to time and place. Pt tearful. Pt's daughter at bedside. Will continue to monitor documented in this encounter H&P Notes Adarsh Casas - 01/05/2013 7:27 AM EDT Interval H&P No interval changes. No recent illness or changes in health. Will proceed with planned surgery. documented in this encounter Miscellaneous Notes Jessicaaneous - Provider, Scanning - 02/06/2013 8:41 AM EDT Katherinecellaneous - Provider, Scanning - 01/05/2013 3:49 PM EDT Op Note - Norma Segundo MD - 01/05/2013 10:58 AM EDT [facility] [place] Operative Note Patient Name: Devaughn Casarez : [id number] MR#: [id number] Case Date: 01/05/2013 Surgeon: Surgeon(s) and Role: * Norma Segundo MD - Primary Preoperative diagnosis: RIGHT BREAST CANCER ,left nipple discharge Postoperative diagnosis: RIGHT BREAST CANCER ,left nipple discharge Procedure(s): EXCISION CYST, FIBROADENOMA, ABBERANT BREAST TISSUE,DUCT LESION,NIPPLE OR AREOLAR LESION (LUMPECTOMY) MASTECTOMY PARTIAL MODIFIER WITH NEEDLE LOC. BIOPSY OR EXCISION OF LYMPH NODE(S), OPEN, DEEP AXILLARY NODE(S) SENTINEL NODE INJECTION MODIFIER SENTINEL NODE EXCISION General Estimated Blood Loss: 25cc Drains: none HPI/Surgical Indications: Surgical Indications: The patient presented to the Breast Clinic with the diagnosis of invasive ductal carcinoma of the right breast. This was nonpalpable and found on screening mammography as approximately a 1-cm nodular density in the upper outer quadrant of the right breast. This on pathology was ER/MO positive and HER2 negative. Staging MRI revealed the presence of a unifocal area of abnormality in the upper outer portion of the right breast corresponding to the biopsy site. Additionally, there was a subareolar 5-mm density in the left breast. 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 However, she continues to have intermittent and sometimes spontaneous left breast nipple discharge. A directed ultrasound of this area revealed a 5-mm subareolar density at 3 o'clock. This was felt to represent an intraductal papilloma. The plan was for excision of this left subareolar density as well as a right breast wire localized partial mastectomy and sentinel lymphadenectomy. Procedure Description: Procedure Description: The patient initially was taken to mammography where a wire was placed in the upper outer portion of the right breast for wire localization. Additionally she received a technetium injection. She was then taken to the operating room and placed supine on the operating table. General anesthesia was induced. The preoperative time-out checklist was performed. The patient received 2 grams of IV Ancef as a prophylactic antibiotic. 1 mL of Lymphazurin dye was injected intradermally in the right breast upper outer quadrant near the wire insertion site for the purpose of lymphatic mapping. Both breasts were then prepped and draped in the usual sterile manner. Attention was initially placed to the left breast where a nipple discharge was expressed with compression in the approximately 3 to 4 o'clock position. A small lacrimal duct probe was then placed through this duct for a guide for the biopsy. At that point, after adequate local anesthesia with 1% plain Xylocaine, a circumareolar incision was made in the lateral portion of the nipple areolar complex. This was through a previous incision. This was then taken down sharply into the dermis. Electrocautery was used to extend this through the dermis, and the nipple was undermined. An area of nipple was actually removed because it appeared that there was some debris right up to and inconclusive of the nipple skin. The excisional biopsy was completed by a triangulated dissection, which included the lateral portion of the nipple areolar complex. The entire specimen was then delivered from the operative field and sent for permanent pathology. The area was thoroughly irrigated with sterile saline. Any noted visible bleeding was controlled with electrocautery. The nipple was then reconstructed, first with interrupted 4-0 Monocryl. This then was followed by interrupted 3-0 Vicryl for the lateral portion of the nipple areolar complex to its surrounding skin and again interrupted 4-0 Monocryl. Steri-Strips were applied. A towel covered this site, and attention was then turned to the right breast where, after adequate local anesthesia, in the upper outer portion of the right breast an incision was made corresponding to the wire insertion site. This was then taken down through the dermis sharply, and then the electrocautery was then used to take a wide field partial mastectomy around the intact wire. This was down to and inclusive of the pectoralis fascia. The specimen was then taken off the field and painted for orientation. The specimen was then sent for specimen radiography, which revealed the presence of the intact wire, the previously placed biopsy clip, and the density. Therefore, this was felt to be an adequate partial mastectomy. The incision was thoroughly irrigated. All bleeding was then controlled either with suture or with electrocautery. That cavity was then packed, and attention was turned to the right axilla where a transcutaneous gamma probe revealed an area of increased activity. After adequate local anesthesia, a curved incision was made in the right axillary fold and taken down sharply through the dermis. Electrocautery was then used to extend this incision down deeply through subcutaneous fat and the axillary fascia. The gamma probe again was used to direct towards what appeared to be a slightly blue-stained lymph node. The in vivo count of this lymph node was 1191. The node was completely excised with electrocautery with the ex vivo count of 845 and a remaining background axillary count of 18. This node was sent as the right axillary sentinel lymph node. The area was thoroughly irrigated with sterile saline. Any noted bleeding was controlled with electrocautery. Both incisions were closed then with interrupted 3-0 Vicryl dermal sutures and a running 4-0 subcuticular Monocryl. Steri-Strips were applied. The patient tolerated the procedure well. Brief Op Note - Norma Segundo MD - 01/05/2013 10:56 AM EDT Brief Operative Note Patient Name: Devaughn Casarez : [id number] MR#: [id number] Case Date: 01/05/2013 Surgeon: Surgeon(s) and Role: * Norma Segundo MD - Primary Preoperative diagnosis: RIGHT BREAST CANCER ,left nipple discharge Postoperative diagnosis: RIGHT BREAST CANCER ,left nipple discharge Procedure(s): EXCISION CYST, FIBROADENOMA, ABBERANT BREAST TISSUE,DUCT LESION,NIPPLE OR AREOLAR LESION (LUMPECTOMY) MASTECTOMY PARTIAL MODIFIER WITH NEEDLE LOC. BIOPSY OR EXCISION OF LYMPH NODE(S), OPEN, DEEP AXILLARY NODE(S) SENTINEL NODE INJECTION MODIFIER SENTINEL NODE EXCISION Anesthesia: General Findings: Complications: none Fluids: Estimated Blood Loss: 25cc Drains: none OR Attestation - Norma Segundo MD - 01/05/2013 10:56 AM EDT Attestation: Case Date: 01/05/2013 I was present and I participated during the entire procedure (does not need to include opening and closing). NORMA SEGUNDO MD 01/05/2013 documented in this encounter Plan of Treatment Upcoming Encounters Date Type Specialty Care Team Description 04/06/2022 Appointment Pulmonology 04/06/2022 Office Visit Pulmonology Matt Watson MD [facility] Amanda RAZA, [place] 0375 (Wo rk) documented as of this encounter Procedures Procedure Name Priority Date/Time Associated Comments Diagnosis MAMMO SPECIMEN Routine 01/05/2013 10:25 Breast cancer Results for this AM EDT procedure are i n the results section. SURGICAL PATHOLOGY Routine 01/05/2013 9:24 AM Res ults for this REPORT EDT procedure are i n the results section. SPECIMEN TO PATHOLOGY Routine 01/05/2013 9:24 AM Results for this EDT procedure are i n the results section. SPECIMEN TO PATHOLOGY Routine 01/05/2013 9:24 AM Results for this EDT procedure are i n the results section. SPECIMEN TO PATHOLOGY Routine 01/05/2013 9:24 AM Results for this EDT procedure are i n the results section. MAMMO SENTINEL NODE Routine 01/05/2013 9:10 AM Breast cancer R esults for this INJECTION EDT procedure are i n the results section. MAMMO NEEDLE Routine 01/05/2013 9:09 AM Breast cancer Results for this LOCALIZATION EDT procedure are i n the results section. MODIFIER SENTINEL 01/05/2013 8:46 AM RIGHT BREAST CANC ER NODE EXCISION EDT SENTINEL NODE 01/05/2013 8:46 AM RIGHT BREAST CANCER INJECTION (WRVU 0.52) EDT BIOPSY OR EXCISION OF 01/05/2013 8:46 AM RIGHT BREAST CANCER LYMPH NODE(S), OPEN, EDT DEEP AXILLARY NODE(S) (WRVU 6.43) MODIFIER WITH NEEDLE 01/05/2013 8:46 AM RIGHT BREAST C ANCER LOC., LESION #1 EDT MASTECTOMY PARTIAL 01/05/2013 8:46 AM RIGHT BREAST CAN CER (WRVU 10.13) EDT EXCISION CYST, 01/05/2013 8:46 AM RIGHT BREAST CANCER FIBROADENOMA, EDT ABBERANT BREAST TISSUE,DUCT LESION,NIPPLE OR AREOLAR LESION (LUMPECTOMY) (WRVU 5.92) EKG 12-LEAD STAT 01/05/2013 8:44 AM Breast cancer Results for this EDT procedure are i n the results section. documented in this encounter Results Mammo specimen (01/05/2013 10:25 [...] called to the OR at 1 0:15am. Norma Segundo MD [facility] MAMMO ORDERABLES Surgical Pathology Report (01/05/2013 9:24 AM EDT) Component Value Ref Test Analysis Performed At Patholo gist Range Method Time Signature Surgical CERNER Pathology ? [facility] Report ? Provider: ?? NORMA SEGUNDO Pt. Name: ?? DEVAUGHN CASAREZ ? Acc #: ?[id number] ?Pt. MRN: ?[id number] ? Col Date: ?? 01/05/2013 ?/Sex: ?1935,(77 years),Female ? Rec Date: ?? 01/05/2013 ?LOC: ?SDP ? SURGICAL PATHOLOGY ? ---Pathologic Diagnosis--- ? A - Specimen: Left breast biopsy ? 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 ? Tumor Size: ? 7 mm (papillom a size) ? Resection Margins (RM): ?Margin Status: ? Involved(Involv ed,Uninvolved) ?Distance, neares t RM(s): ?? At the cauterized yellow RM (A3), adjacent to ? skin. ? See Comment ? Specimen (s): ??B - Right partial mastectomy ?C - Right axillary sentinel no de ? Histologic Type: Invasive ductal carcinoma ? Tumor Grade: ??Low ? Oncxhy-Sskqx-Cjyuketuhc Score: 5 ?Tubular Differentiation: ?? 2 ?Mitotic Rate: ?? 1 ?Nuclear Grade: ??2 ? Tumor Size: ?? 0.7 cm (maximum diameter) ? In Situ Histologic Ty pe: Not identified (present in the core bx [id number]) ? Microcalcifications: ??Not identified ? Angiolymphatic Invasion: Not identified ? Perineural invasion: Not identified ? Nipple involvement: ?? N/A ? Skin/Skeletal muscle invasion: N/A ? Other Findings: 1 - Atypical ductal hyperplasia ? 2 - Atypical lobular hyperpla enrique ? 3 - Healing biopsy site ? Resection Margins (RM): ?Invasive Ca: ?Uninvolved(involved/uninvolved ) ? Distance from c losest RM(s): ??< 0.1 cm to nearest yellow inked RM (B2) ? Axillary lymph nodes: ? Total no. nodes sampled: ? 1 ? No. non-sentinel nodes: ?0 ??(Specimen _, b lock(s)_) ? No. positive for carcinoma: ??NA ??(H&E stain only ) ? No. sentinel nodes: ??1 (Specimen C, blocks(s)1-8) (H&E only) ? [facility] ? Provider: ?? NORMA SEGUNDO Pt. Name: ?? DEVAUGHN CASAREZ ? Acc #: ?[id number] ?Pt. MRN: ?[id number] ? Col Date: ?? 01/05/2013 ?/Sex: ?1935,(77 years),Female ? Rec Date: ?? 01/05/2013 ?LOC: ?SDP ? SURGICAL PATHOLOGY ?No. with metastases 0.02 cm or less (isolated tu mor cells) 0 ?No. with metastases >0.02 cm to 0.2 cm (micromet astases) 0 ?No. with metastases >0.2 cm (macrometastases) 0 ? Total no. nodes negative for carcinoma: ??1 ? Estrogen/Progestin receptors, performed see report s- [id number] ? pTNM: pT1b N0 ??(AJCC, 7th edition, 2010) ? *Diagnostic ellison for hormone receptors (ASCO/CAP GUIDE LINES, 2010): ? Negative immunoreactivity: <1% tumor cells wi th immunostaining ? Positive immunoreactivity: >1% tumor cells wi th immunostaining ? TMRBLKI: B2 ? 01/06/13 ? [facility] ? 01/09/13 Verified by: ? Mayur DO, Meli Polanco ? Pathologist ? (Electronic Si gnature) ? The attending pathologist whose signature appears o n this report has ? reviewed all diagnostic slides and has edited the yamilet ss and/or ? microscopic portion of the report in rendering the fi nal pathologic ? diagnosis. ? ---Comment--- ? 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 the form of cytologic and architectural changes. ??This does not affect the ? entire papilloma, how ever, and there are a few areas of the papilloma that ? show usual hyperplasi a. ??Given the overall appearance and inclusion of the ? atypia in the lesion; and given the positive margin, is it not clear if the ? atypia has been entirely excised. ? ---Microscopic Description--- ? Slides reviewed, microscopic description not recorded . ? Immunohistochemistry Studies: ? Formalin-fixed, paraf fin-embedded tissue sections are studied using the B- ? SA system technique w ith appropriate positive and negative controls. ??These ? IHC studies provide t pathologist with adjunctive diagnostic information. ? Antibody specificity has been ? [facility] ? Provider: ?? NORMA SEGUNDO Pt. Name: ?? DEVAUGHN CASAREZ ? Acc #: ?[id number] ?Pt. MRN: ?[id number] ? Col Date: ?? 01/05/2013 ?/Sex: ?1935,(77 years),Female ? Rec Date: ?? 01/05/2013 ?LOC: ?SDP ? SURGICAL PATHOLOGY ? verified by testing a ntibodies on a series of in-house tissues with known ? immunohistochemical performance characteristics. The clinical ? interpretation of any antibody positive staining or i ts absence is ? evaluated within the context of clinical presentation , morphology, ? histopathological criteria and other diagnostic tests . ? Block ?Antibody ?Result (Positive/Ne gative) ? A4 ?ER ? Positive in atypical papilloma (>90%, intense) ? A4 ?MO ? Positive in atypical papilloma (>90%, intense) ? ---Gross Description--- ? A- Labeled/Fixative: Left breast biopsy, fresh. ? Quantity/Size: Single , 4.0 x 3.0 x 2.5 cm. ? Tissue Description: S kin with underlying fibrofatty tissue. There is a a ? protruding rojo-white firm but friable mass measuring 1.5 x 1.5 x 0.5 cm, ? inked yellow, the remaining yellow fatty surfac e is inked blue. ??The ? specimen is serially sectioned. ? Sections/Processing: Fibrous tissue encompassing the lesion is submitted in ? seven cassettes (R7) ? B - Labeled/Fixative: Right partial mastectomy, fresh . ? SPECIMEN DESCRIPTION ? Resection Specimen: Intact right excisional biopsy ? Qty/Size/Weight: 9.5 x 8.0 x 2.5, cm, 91 gram. ? Radiograph: eDH reviewed showing wire and biopsy clip . ? Specimen Description: According to the established pr otocol the ink ? designations are red (medial), yellow (lateral), kali ge(cranial), ? green(caudal), black (deep) and blue (superficial). ? Tissue Sections: The specimen is serially sectioned perpendicular to the ? long axis from blue ( superficial) to black (deep) margin into 11 slices, ? each averaging 0.5 in thickness. ? LESION ? Description: Mass. ? Size: 0.7 x 0.6 x 0.3 cm ? Color: White. ? Consistency: Solid. ? Location: Slice IX ? Nearest Margin: 0.1 to yellow. ? Other Margins: 0.5 to red (medial). ? OTHER ? Parenchyma: Yellow fatty tissue. ? Wire/Clip: Slice VIII tip of wire, Slice IX biopsy cl ip. ? [facility] ? Provider: ?? NORMA SEGUNDO Pt. Name: ?? DEVAUGHN CASAREZ ? Acc #: ?[id number] ?Pt. MRN: ?[id number] ? Col Date: ?? 01/05/2013 ?/Sex: ?1935,(77 years),Female ? Rec Date: ?? 01/05/2013 ?LOC: ?SDP ? SURGICAL PATHOLOGY ? SECTIONS/PROCESSING: ??(1-4)Lesion, Slice IX; (5-6)Slice VIII; (7-9)Slice ? VII; (10-11)Slice X; (12)Slice XI; (13)Slice I; (14)Slice II. (R14) ? C - Labeled/Fixative: Right axillary sentinel node, f resh. ? Quantity/Size: Single; 2.5 x 1.5 x 1.5 cm. ? Tissue Description: Yellow fatty tissue. ? Sections/Processing: Sectioning shows one lymph node, entirely submitted in ? eight cassettes (R8)ts ? ---Clinical Information--- ? Specimen Submitted: ? A - Left breast biopsy ? B - Right partial mastectomy ? C - Right axillary sentinel node ? Clinical History: ? Right breast cancer ? Clinical Diagnosis: ? Right breast cancer Specimen (Source) Anatomical Collection Method Collection Time Re ceived Time Location / / Volume Laterality 01/05/2013 9:24 AM EDT Norma Segundo MD PATHOLOGY/CYTOLOGY ORDERABLE S Performing Organization Address City/State/[place] [address] [facility] Specimen to Pathology (surgical or derm) (01/05/2013 9:24 AM EDT) Specimen Anatomical Collection Method Collection Time Receive d Time (Source) Location / / Volume Laterality AP Specimen 01/05/2013 9:24 AM 3 9:24 EDT AM EDT Narrative CERNER MILLENNIUM - 01/05/2013 9:25 AM E DT Specimen requisition ordered. ??Separate Pathology report to follow Norma Segundo MD PATHOLOGY/CYTOLOGY ORDERABLE S Performing Organization Address City/[facility]/[place] [address] CERNER MILLENNIUM Specimen to Pathology (surgical or derm) (01/05/2013 9:24 AM EDT) Specimen Anatomical Collection Method Collection Time Receive d Time (Source) Location / / Volume Laterality AP Specimen 01/05/2013 9:24 AM 3 9:24 EDT AM EDT Narrative CERNER MILLENNIUM - 01/05/2013 9:24 AM E DT Specimen requisition ordered. ??Separate Pathology report to follow Norma Segundo MD PATHOLOGY/CYTOLOGY ORDERABLE S Performing Organization Address City/State/ZIP Code Phon e Number [address] CERNER MILLENNIUM Specimen to Pathology (surgical or derm) (01/05/2013 9:24 AM EDT) Specimen Anatomical Collection Method Collection Time Receive d Time (Source) Location / / Volume Laterality AP Specimen 01/05/2013 9:24 AM 3 9:24 EDT AM EDT Narrative CERNER MILLENNIUM - 01/05/2013 9:24 AM E DT Specimen requisition ordered. ??Separate Pathology report to follow Norma Segundo MD PATHOLOGY/CYTOLOGY ORDERABLE S Performing Organization Address [facility] Phon e Number [address] CERNER MILLENNIUM Mammo sentinel node injection (01/05/2013 9:10 AM [...] the lesion. No imaging was performed. ?? Modale node tracer injection performed under Dr. Costa's [...] around the lesion. No imaging was performed. Modale node tracer injection performed under Dr. Costa's general supervision. I performed the procedure without a resi dent. Norma Segundo MD IMG MAMMO ORDERABLES Mammo needle localization [...] called to the OR at 1 0:15am. Norma Segundo MD IMG MAMMO ORDERABLES EKG 12 Lead (01/05/2013 8:44 AM EDT) Component Value Ref Range Test Analysis Performed Pathologis t Method Time At Signature Ventricular rate 55 BPM MUSE SYSTEM Atrial Rate 55 BPM MUSE SYSTEM P-R Interval 160 ms MUSE SYSTEM QRS Duration 84 ms MUSE SYSTEM Q-T Interval 466 ms MUSE SYSTEM QTC Calculated 445 ms MUSE SYSTEM (Bezet) Calculated P [place] 89 degrees MUSE SYSTEM Calculated R [place] -46 degrees MUSE SYSTEM Calculated T [place] 60 degrees MUSE SYSTEM INTERPRETATION Sinus bradycardia MUSE SY STEM Left axis deviation Abnormal ECG No previous ECGs available Confirmed by MD DUBOIS ALAN ([id number]) on 01/05/2013 10:40:08 PM Specimen Anatomical Collection Method Collection Time Receive d Time (Source) Location / / Volume Laterality 01/05/2013 8:44 AM 3 EDT 10:40 PM EDT Freya Lopez MD ECG ORDERABLES Performing Organization Address City/State/ZIP Code Phon e Number MUSE SYSTEM documented in this encounter Visit Diagnoses Diagnosis Breast cancer - Primary Malignant neoplasm of breast (female), u nspecified site documented in this encounter Administered Medications Inactive Administered Medications - up to 3 most recent administrations Medication Order MAR Action Action Date Dose Rate Site OXYcodone (ROXICODONE) immediate Given 01/05/2013 12:15 PM EDT 5 mg release tablet 5 mg 5 mg, Oral, ONCE, 1 dose, On Krystal 01/05/13 at 1215, Routine scopolamine (TRANSDERM-SCOP) 1.5 mg patch 1 Given 12/2012 12:45 PM EDT 1 patch patch 1 patch, Transdermal, EVERY 72 HOURS, First dose on Krystal 01/05/13 at 1245, Until Discontinued, PACU Recovery, Routine scopolamine (TRANSDERM-SCOP) 1.5 mg patc h 1 dose, Starting on Krystal 01/05/13 at 1234, Until Krystal 01/05/13 at 1245, SHIRA PICKERING: cabinet override documented in this encounter Active and Recently Administered Medications Times are shown in EDT. Scheduled Medication Order 01/03/2013 01/04/2013 01/05/2013 OXYcodone (ROXICODONE) immediate release tablet 5 mg (COMPLETED) 1215 (Given - Provider: Shira Pickering, BLAS) 5 mg, Oral, ONCE, 1 dose, Krystal 01/05/13 at 1215, Routine scopolamine (TRANSDERM-SCOP) 1.5 mg patch 1 patch (CANCELED) 1245 (Given - Provider: Shira Pickering, BLAS) 1 patch, Transdermal, EVERY 72 HOURS, Fi rst dose on Rkystal 01/05/13 at 1245, Until Discontinued, PACU Recovery, Routine Continuous Medication Order 01/03/2013 01/04/2013 01/05/2013 lactated ringers infusion 1,000 mL (CANCELED) 0715 (Due)0854 (New Bag - Provider: Sukumar Fisher)0920 (Anesthesia Volume Adjustment - Provider: Sukumar Fisher)1004 (Anesthesia Volume Adjustment - Provider: Sukumar Fisher) 1,000 mL, at 100 mL/hr, Intravenous, CON TINUOUS, Starting Krystal 01/05/13 at 0715, Until Krystal 01/05/13 at 1521, Day of Surgery (Day of Procedure) 1033 (Anesthesia Volume Adjustment - Provider: Sukumar Fisher) PRN Medication Order 01/03/2013 01/04/2013 01/05/2013 Isosulfan Blue (LYMPHAZURIN) 1 % injection Soln (CANCELED) 0937 (Given - Provider: Norma Segundo MD - Comment: Right Breast.) ONCE PRN, Starting Krystal 01/05/13 at 0937, U ntil Krystal 01/05/13 at 1521, Intra-Operative (Intra-Procedure), Routine lidocaine (PF) (XYLOCAINE) 10 mg/mL (1 %) injection (CANCELED) 1041 (Given - Provider: Norma Segundo MD - Comment: Bilateral breasts) ONCE PRN, Starting Krystal 01/05/13 at 1041, U ntil Krystal 01/05/13 at 1521, Intra-Operative (Intra-Procedure), Routine documented in this encounter Care Teams Gambreler Helper Relationship Specialty Start Date End Date Matt Mcdonnell DO PCP - General 11/15/12 11/29/19 [address] [place] [address] documented as of this encounter
--- OUTSIDE RECORDS SUMMARY | 2022-04-03 12:34 | XMS_ITS | Encounter Summary ---
:1935 [place] [address] Care Team Providers Name Role Phone Matt Mcdonnell DO Primary Care Provider Encounter Details Date Type Department Care Team Description 12/27/2012 External Results Hematology and Matias Salmeron, ITP (id iopathic Oncology at [facility] MD thrombocytopenic [facility] purpura) [facility] DR Crain OR HEMATOLOGY/ONCO [address] [facility] [phone] [place] [address] Social History Tobacco Use Types Packs/Day Years Used Date Never Smoker Sex Assigned at Date Recorded Female 10/29/2021 2:50 PM EDT documented as of this encounter Plan of Treatment Upcoming Encounters Date Type Specialty Care Team Description 04/06/2022 Appointment Pulmonology 04/06/2022 Office Visit Pulmonology Matt Watson MD [facility] ER PULMONARY [place], [place] [address] (Wo rk) documented as of this encounter Procedures Procedure Name Priority Date/Time Associated Diagnosis Comme nts CBC (WITH DIFF) STAT 12/27/2012 11:12 ITP (idiopathic Resul ts for this AM EDT thrombocytopenic purpura) pr ocedure are in the results section. documented in this encounter Results (ABNORMAL) CBC (with Diff) (12/27/2012 11:12 AM EDT) Patholo gist Method Time Signature WBC 7.7 EXTERNAL LAB (External Lab) Hemoglobin 14.5 12.0 - EXTERNAL LAB (External 16.0 Lab) Hematocrit 43.4 36.0 - EXTERNAL LAB (External 46.0 Lab) Platelets 74 EXTERNAL LAB (EXTERNAL/ ABN) Neutr Abs (ANC) 5.5 EXTERNAL LAB (External Lab) Specimen (Source) Anatomical Collection Method Collection Time Re ceived Time Location / / Volume Laterality Blood specimen 12/27/2012 11:12 (specimen) AM EDT Matias Salmeron MD HEMATOLOGY ORDERABLES Performing Organization Address City/State/ZIP Code Phon e Number EXTERNAL FACILITY EXTERNAL LAB documented in this encounter Visit Diagnoses Diagnosis 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
--- OUTSIDE RECORDS SUMMARY | 2022-04-03 12:34 | XMS_ITS | Encounter Summary ---
:1935 Author Organization [facility] [place] [address] Care Team Providers Name Role Phone Matt Mcdonnell DO Primary Care Provider Encounter Details Date Type Department Care Team Description 12/21/2012 Hospital Encounter Mammography at [facility] Abnormal mammogram, [facility] [place] [address] Social History Tobacco Use Types Packs/Day [...] Visit Pulmonology Matt Watson MD [facility] PULMONARY [place], [place] [address] (Wo rk) documented as of this encounter Procedures Procedure Name Priority Date/Time Associated Diagnosis Comme nts MAMMO BREAST US Routine 12/21/2012 3:27 PM Abnormal mammogram, Results for this LIMITED EDT unspecified procedure are i n the results section. documented in this encounter Results Mammo breast US unilateral [...] this evaluation. Above findings discussed with Dr. Haskins erg by Dr. Lama immediately after this examination. [...] this evaluation. Above findings discussed with Dr. Haskins erg by Dr. Lama immediately after this examination. [...] unspecified documented in this encounter Care Teams Circuitry Negative Inspector Relationship Specialty Start Date End Date Matt Mcdonnell DO PCP - General 11/15/12 11/29/19 [address] [place] [address] documented as of this encounter
--- OUTSIDE RECORDS SUMMARY | 2022-04-03 12:34 | XMS_ITS | Encounter Summary ---
:1935 Author Organization [place] [address] Care Team Providers Name Role Phone FritzmarthaManuelMatt Martha KHAN Primary Care Provider Encounter Details Date Type Department Care Team Description 12/07/2012 Telephone Hematology and [place]cology [place] [address] Social History Tobacco Use Types Packs/Day Years Used Date Never Smoker Sex Assigned at Date Recorded Female 10/29/2021 2:50 PM EDT documented as of this encounter Miscellaneous Notes Telephone Encounter - Any Austin RN - 12/07/2012 5:18 PM EDT Barbara Casarez is a 77 y.o. yo female with newly diagnosed right breast IDC/LCIS/DCIS (per right breast U/S guided biopsy 12[place]05/2012 in [place] [facility] RN contacted patient after Dr. 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 Pt states she has support from family. Her son lives nearby and her daughter, a nurse living in [place], will be able to be with her during the surgical period. She currently has her grandson staying with her. Pt appears to be coping well, but is anxious to meet with the breast surgeon to determine a treatment plan. Appointments for breast MRI, chest xray, and surgical consult with a breast surgeon will be arrangedfor pt. Patient was told she would receive information about her diagnosis and it's treatment. RN addressed her questions and encouraged her to contact me with any additional questions or concerns. Contact information provided for CBP and this senior medical writer. documented in this encounter Plan of Treatment Upcoming Encounters Date Type Specialty Care Team Description 04/06/2022 Appointment Pulmonology 04/06/2022 Office Visit Pulmonology Matt Watson MD [facility] PULMONARY [place], [place] [address] (Wo rk) documented as of this encounter Visit Diagnoses Not on filedocumented in this encounter Care Teams Sheet Metal Worker Apprentice Relationship Specialty Start Date End Date Matt Mcdonnell DO PCP - General 11/15/12 11/29/19 [address] [place] [address] documented as of this encounter
--- OUTSIDE RECORDS SUMMARY | 2022-04-03 12:34 | XMS_ITS | Encounter Summary ---
:1935 Author Organization [facility] [place] [address] Care Team Providers Name Role Phone Matt Mcdonnell DO Primary Care Provider Encounter Details Date Type Department Care Team Description 03/31/2013 Office Visit Hematology Oncology at [facility], Norma Conde MD [facility] [place] [address] [place] [address] Niki Purdy MD [facility] INTERNAL MEDICINE [address] [place] [address] [place] [address] Social History Tobacco Use Types [...] Visit Pulmonology Matt Watson MD [facility] PULMONARY [place], [place] [address] (Wo rk) documented as of this encounter Visit Diagnoses Not on filedocumented in this encounter Care Teams Numerical Tool Programmer Relationship Specialty Start Date End Date Matt Mcdonnell DO PCP - General 11/15/12 11/29/19 [address] [place] [address] documented as of this encounter
--- OUTSIDE RECORDS SUMMARY | 2022-04-03 12:34 | XMS_ITS | Encounter Summary ---
:1935 Author Organization [facility] [place] [address] Care Team Providers Name Role Phone FritzMatt hollins Martha KHAN Primary Care Provider Encounter Details Date Type Department Care Team Description 01/05/2013 Surgery Main Operating Room Norma Segundo, EXCISION CYST, [facility] F[place], [facility] BREAST TISSUE,DUCT [facility] DR LESION,[address] OR Drive GENERAL [place] [address] [place] [address] (LUMPECTOMY) [facility] [phone] (Wo rk) 5.26) Social History Tobacco Use Types Packs/Day Years [...] Sign Reading Time Taken Comments Blood Pressure 168/75 01/05/2013 7:13 AM EDT Pulse 58 01/05/2013 7:13 AM EDT Temperature 36.5 ??C (97.7 ??F) 01/05/2013 7:13 AM EDT Respiratory Rate 16 01/05/2013 7:13 AM EDT Oxygen Saturation 94% 01/05/2013 7:13 AM EDT Inhaled Oxygen Concentration - - [...] may need to take a laxative Patient InstructionsCostaAdarsh reyes - 01/05/2013 11:13 AM EDT Instructions Following [...] 101.3 F. The number for questions is [phone] before 5 PM week. Pain Medication: No driving for 8 hours [...] change the date of yourappointment please call [phone]. Your follow-up is very important to us. Please call [phone] (clinic number) if any changes need to [...] surgery. documented in this encounter Miscellaneous Notes Zully Maurer - 02/06/2013 8:41 AM EDT Miscellaneous - Provider, Scanning - 01/05/2013 3:49 PM EDT Op Note - Norma Segundo MD - 01/05/2013 10:58 AM EDT [facility] Operative Note Patient Name: Devaughn Casarez : [id number] MR#: [id number] Case Date: 01/05/2013 Surgeon: Surgeon(s) and Role: [...] the right breast. This on pathology was ER/AZ positive and HER2 negative. Staging MRI revealed the presence of a unifocal area of abnormality in the upper outer portion of the right breast corresponding to the biopsy site. Additionally, there was a subareolar 5-mm density in the left breast. 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 However, she continues to [...] Operative Note Patient Name: Devaughn Casarez : [id number] MR#: [id number] Case Date: 01/05/2013 Surgeon: Surgeon(s) and Role: [...] Visit Pulmonology Matt Watson MD [facility] PULMONARY [place], [place] [address] (Wo rk) documented as of [...] 0:15am. Norma Segundo MD IMG MAMMO ORDERABLES Surgical Pathology Report (01/05/2013 9:24 AM EDT) Component Value Ref Test Analysis Performed At [facility] Range Method Time Signature Surgical CERNER Pathology ? [facility] Report ? Provider: ?? NORMA SEGUNDO Pt. Name: ?? DEVAUGHN CASRAEZ ? Acc #: ?[id number] ?Pt. MRN: ?[id number] ? Col Date: ?? 01/05/2013 ?/Sex: ?1935,(77 [...] ductal carcinoma ? Tumor Grade: ??Low ? Ardoxu-Gtlns-Kxvrbwruoh Score: 5 ?Tubular Differentiation: ?? 2 ?Mitotic Rate: ?? 1 ?Nuclear Grade: ??2 ? Tumor Size: ?? 0.7 cm (maximum diameter) ? In Situ Histologic Ty pe: Not identified (present in the core bx [id number]) ? Microcalcifications: ??Not identified ? Angiolymphatic Invasion: [...] ??1 (Specimen C, blocks(s)1-8) (H&E only) ? [facility] ? Provider: ?? NORMA SEGUNDO Pt. Name: ?? DEVAUGHN CASAREZ ? Acc #: ?[id number] ?Pt. MRN: ?[id number] ? Col Date: ?? 01/05/2013 ?/Sex: ?1935,(77 years),Female ? Rec Date: ?? 01/05/2013 ?LOC: ?SDP ? SURGICAL PATHOLOGY ?No. with metastases 0.02 cm or less (isolated tu mor cells) 0 ?No. with metastases >0.02 cm to 0.2 cm (micromet astases) 0 ?No. with metastases >0.2 cm (macrometastases) 0 ? Total no. nodes negative for carcinoma: ??1 ? Estrogen/Progestin receptors, performed see report s- [id number] ? pTNM: pT1b N0 ??(AJCC, 7th edition, 2010) ? *Diagnostic ellison for hormone receptors (ASCO/CAP GUIDE LINES, 2010): ? Negative immunoreactivity: <1% tumor cells wi th immunostaining ? Positive immunoreactivity: >1% tumor cells wi th immunostaining ? TMRBLKI: B2 ? 01/06/13 ? CCB ? 01/09/13 Verified by: ? Meli Merchant DO ? Pathologist ? (Electronic Si gnature) ? [...] information. ? Antibody specificity has been ? [facility] ? Provider: ?? NORMA SEGUNDO Pt. Name: ?? DEVAUGHN CASAREZ ? Acc #: ?[id number] ?Pt. MRN: ?[id number] ? Col Date: ?? 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 ? [facility] ? Provider: ?? NORMA SEGUNDO Pt. Name: ?? DEVAUGHN CASAREZ ? Acc #: ?[id number] ?Pt. MRN: ?[id number] ? Col Date: ?? 01/05/2013 ?/Sex: ?1935,(77 [...] Organization Address City/State/[place] [address] CERNER MILLENNIUM Specimen to [...] Organization Address City/State/ZIP Code Phon e Number [address] CERNER MILLENNIUM Specimen to [...] Organization Address City/State/ZIP Code Phon e Number [address] CERNER MILLENNIUM Specimen to [...] Organization Address City/State/[place] [address] CERNER MILLENNIUM Mammo sentinel node [...] the lesion. No imaging was performed. ?? [place] node tracer injection performed under Dr. Costa's [...] around the lesion. No imaging was performed. [place] node tracer injection performed under Dr. Costa's [...] 445 ms MUSE SYSTEM (Bezet) Calculated P [place] 89 degrees MUSE SYSTEM Calculated R [place] -46 degrees MUSE SYSTEM Calculated T [place] 60 degrees MUSE SYSTEM INTERPRETATION Sinus bradycardia MUSE SY STEM Left axis deviation Abnormal ECG No previous ECGs available Confirmed by MD SHERLY, ARIES ([id number]) on 01/05/2013 10:40:08 PM Specimen Anatomical [...] MAR Action Action Date Dose Rate Site Isosulfan Blue Given 01/05/2013 9:37 AM 1 mL 19 - Surgical Site (LYMPHAZURIN) 1 % EDT injection Soln ONCE PRN, Starting on Krystal 01/05/13 at 0937, Until Krystal 01/05/13 at 1521, Intra-Operative (Intra-Procedure), Routine lidocaine (PF) (XYLOCAINE) 10 Given 01/05/2013 10:41 AM 22 mg 19- Surgical Site mg/mL (1 %) injection EDT ONCE PRN, Starting on Krystal 01/05/13 at 1041, Until Krystal 01/05/13 at 1521, Intra-Operative (Intra-Procedure), Routine OXYcodone (ROXICODONE) immediate release Given 01/05/2013 12:15 PM EDT 5 mg tablet 5 mg 5 mg, Oral, ONCE, [...] EVERY 72 HOURS, Fi rst dose on Krystal 01/05/13 at 1245, Until [...] Routine documented in this encounter Care Teams Nurse Emergency Relationship Specialty Start Date End Date Matt Mcdonnell DO PCP - General 11/15/12 11/29/19 [address] [place] [address] documented as of this encounter
--- OUTSIDE RECORDS SUMMARY | 2022-04-03 12:34 | XMS_ITS | Encounter Summary ---
:1935 Author Organization [facility] [place] [address] Care Team Providers Name Role Phone Fritzgunjan Matt Thomas DO Primary Care Provider Encounter Details Date Type Department Care Team Description 03/15/2013 Telephone Radiation Oncology at GreciaMarleni rose RN [place] [phone] Social History Tobacco Use Types Packs/Day [...] Telephone Encounter - Marleni Joshi RN - 03/15/2013 11:06 AM EDT Telephone call to patient as requested by Dr. Kowalski to inform her that her recent platelet count from 03/08/13 was okay. I left a message on identifiable mobile [employer] with a request that she call us back at [phone] if she has any questions. documented in this encounter Plan of Treatment Upcoming Encounters Date Type Specialty Care Team Description 04/06/2022 Appointment Pulmonology 04/06/2022 Office Visit Pulmonology Matt Watson MD [facility] ER DR ANEESH Patel [place], [place] [address] (Wo rk) documented as of this encounter Visit Diagnoses Not on filedocumented in this encounter Care Teams Intermediate Designer Relationship Specialty Start Date End Date Matt Mcdonnell DO PCP - General 11/15/12 11/29/19 [address] [place] [address] documented as of this encounter
--- OUTSIDE RECORDS SUMMARY | 2022-04-03 12:34 | XMS_ITS | Encounter Summary ---
:1935 [place] [address] Care Team Providers Name Role Phone Matt Mcdonnell Primary Care Provider Encounter Details Date Type Department Care Team Description 01/05/2013 Anesthesia Event Main Operating Room Freya Vegas MD [facility] [address] [place] [address] [facility] Sukumar Fisher MD [facility] [address] [place] [address] [place] [address] Anesthesia Record Procedure Summary Procedure Name Responsible Anesthesia Start Anesthesia Stop Time Anesthesiologist Time EXCISION CYST, Freya Lopez MD 01/05/13 0854 01/05/13 111 2 FIBROADENOMA, ABBERANT BREAST TISSUE,DUCT LESION,NIPPLE OR AREOLAR LESION (LUMPECTOMY) (WRVU 5.92) (Left Breast) Events Date Time Event Comment 01/05/2013 0720 0854 Start 0857 AN Verify 0857 An Start Data 0900 An Induction 0903 An Intubation 0907 Anesthesia Ready 0923 Break/Relief In Jf FAITH RNA 0933 Break/Relief Out 1106 Extubation/LMA Out 1106 an stop data 1112 Stop Name Total Midazolam 1 mg fentaNYL 125 mcg IV Lidocaine 20 mg Propofol 200 mg PHENYLephrine 80 mcg ePHEDrine 20 mg Ondansetron 4 mg Dexamethasone 4 mg ceFAZolin 2 g lactated ringers infusion 1,000 mL 0 mL Agents Name O2 Air Desflurane (et) Blood No blood administrations on file. Lines, Drains, and Airways Type Details Placement Removal Incision 01/05/13; breast; 01/05/13 0000 by 04/23/15 1445 by 04/23/15 (Date Ewa Marte RN Deja Benson unknown-healed on arrival); 1445 PIV 01/05/13 (Placed by 01/05/13 0720 by 01/05/13 13 01 by Shirlene Doll RN); 0720; Charity Spencer RN Gage, Michelle M, RN 01/05/13; 1301 (RETIRED) Non-Surgical Mask Ventilation: 01/05/13 0920 by 1106 by Airway Easy (1); LMA Type: Manjinder Fisher, iGel; LMA Size: 4 MD documented in this encounter Social History Tobacco [...] encounter OR Notes Anesthesia Postprocedure Evaluation - Freya Lopez MD - 01/05/2013 11:51 AM EDT Patient: Barbara Casarez Procedure(s) Performed: Procedure(s): EXCISION CYST, FIBROADENOMA, ABBERANT BREAST TISSUE,DUCT LESION,NIPPLE OR AREOLAR LESION (LUMPECTOMY) MASTECTOMY PARTIAL MODIFIER WITH NEEDLE LOC. BIOPSY OR EXCISION OF LYMPH NODE(S), OPEN, DEEP AXILLARY NODE(S) SENTINEL NODE INJECTION MODIFIER SENTINEL NODE EXCISION Actual Anesthetic: general Patient location: PACU Post-op pain: Adequate analgesia, but c/o sore throat Post-op nausea: no nausea or vomiting Last Vitals: Filed Vitals: 01/05/13 1137 BP: 130/44 Pulse: 63 Temp: Resp: 16 Post-op cardiovascular and respiratory status: is stable Level of consciousness: awake, alert and oriented; woke up very emotionally distressed. Discussed w/pt and daughter - pt normally very stoic, perhaps anesthetic caused disinhibition w/ pt's repressed anxiety, emotions re: her breast ca coming to the surface. Complications: no apparent complications and tolerated the procedure well Fluid Status: normal Anesthesia Preprocedure Evaluation - Freya Lopez MD - 01/04/2013 4:30 PM EDT Pre-Anesthesia Evaluation for: Barbara Casarez a 77 y.o. female. Procedure(s): EXCISION CYST, FIBROADENOMA, ABBERANT BREAST TISSUE,DUCT LESION,NIPPLE OR AREOLAR LESION (LUMPECTOMY) MASTECTOMY PARTIAL MODIFIER WITH NEEDLE LOC. BIOPSY OR EXCISION OF LYMPH NODE(S), OPEN, DEEP AXILLARY NODE(S) SENTINEL NODE INJECTION MODIFIER SENTINEL NODE EXCISION Patient Active Problem List Diagnoses ??? Breast cancer Past Medical History Diagnosis Date ??? Cancer ??? Hypertension No past surgical history on file. History Substance Use Topics ??? Smoking status: Never Smoker ??? Smokeless tobacco: Not on file ??? Alcohol Use: Not on file History Drug Use Not on file Allergies Allergen Reactions ??? Norvasc (Amlodipine) Other (See Comments) Causes edema to lower extremities Medications: MAR and/or home medications have been reviewed. Physical Exam: There were no vitals filed for this visit. There is no height or weight on file to calculate BMI. Airway Assessment: Mallampati: II TM distance: >3 FB Neck ROM: full Cardiovascular Assessment: Pulmonary Assessment: Dental Assessment: Comment: Post for implant R upper pre-molar, otherwise nl Misc Assessment: Patient is wearing No contact(s). IV access: Peripheral line Anesthesia Plan: ASA 2 general, with a(n) intravenous induction 77F with R breast ca, L breast mass and pmh of htn, obesity presenting for partial right mastectomy w/ needle localization, right sentinel node excision, left breast excisional biopsy. Plan for general anesthesia. HTN - multiple meds, nl BP 140-160 systolic, 70 diastolic per pt Thrombocytopenia - dx 08/2012, seen by Heme here, no intervention or w/u, just following as long as greater than 70K(presumptive dx chronic ITP) RAD? - given albuterol inhaler by PCP last winter during episode URI/bronchitis Recent L knee injury, s/p L knee arthroscopy 12/28/12 Obesity Non-smoker No recent URI No GERD No hx anesthetic problems Allergy: Amlodipine(leg edema) Wt: 88.5 kg NPO: Solids 1730, liquids 0400(H2O w/ meds) Code: Full 12/27/12 WBC 7.7, H/H 14.5/43.4, plts 74 Na 139, K 3.7, BUN 13, Cr 0.96, eGFR 57 12/09/12 CXR - borderline cardiomegaly 01/05/13 ECG - Region - Other Informed Consent: Anesthetic plan and risks discussed with patient. Use of blood products discussed with patient whom consented to blood products. Mis. Assessment: documented in this encounter Miscellaneous Notes Addendum Note - Sukumar Fisher - 01/05/2013 12:27 PM EDT Addendum created 01/05/13 1227 by Sukumar Fisher MD Modules edited:Orders documented in this encounter Plan of Treatment Upcoming Encounters Date Type Specialty Care Team Description 04/06/2022 Appointment Pulmonology 04/06/2022 Office Visit Pulmonology Matt Watson MD [facility] P[place]ARY [place] [address] (Wo rk) documented as of this encounter Visit Diagnoses Not on filedocumented in this encounter Administered Medications Inactive Administered Medications - up to 3 most recent administrations Medication Order MAR Action Action Date Dose Rate Site ceFAZolin (ANCEF) 1g in dextrose 5% Given 01/05/2013 9:07 AM EDT 2 g 50mL PRN, Starting on Krystal 01/05/13 at 0907, Until Krystal 01/05/13 at 1112, Administer over 30 Minutes, Anesthesia Intra-op dexamethasone (DECADRON) injection Given 01/05/2013 8:45 AM EDT 4 mg PRN, Starting on Krystal 01/05/13 at 0845, Until Krystal 01/05/13 at 1112, Anesthesia Intra-op, Routine ePHEDrine Sulfate in sodium chloride 0.9% Given 01/05/2013 10:07 AM EDT 10 mg (PF) 50 mg/10 mL (5 mg/mL) injection Syr g PRN, Starting on Krystal 01/05/13 at 0939, Until Krystal 01/05/13 at 1112, Anesthesia Intra-op Given 01/05/2013 9:39 AM EDT 10 mg fentaNYL 50mcg/mL injection Given 01/05/2013 10:30 AM EDT 25 mcg PRN, Starting on Krystal 01/05/13 at 0854, Until Krystal 01/05/13 at 1112, Pain, Anesthesia Intra-op, Routine Given 01/05/2013 10:19 AM EDT 25 mcg Given 01/05/2013 10:01 AM EDT 25 mcg lactated ringers infusion 1,000 mL New Bag 01/05/2013 8:54 AM EDT mL 1,000 mL, at 100 mL/hr, Intravenous, CONTINUOUS, Starting on Krystal 01/05/13 at 0715, Until Krystal 01/05/13 at 1521, Day of Surgery (Day of Procedure) lidocaine (PF) (XYLOCAINE) 100 mg/5 mL (2 %) Given 3 8:54 AM EDT 20 mg injection PRN, Starting on Krystal 01/05/13 at 0854, Until Krystal 01/05/13 at 1112, Anesthesia Intra-op, Routine midazolam (VERSED) injection Given 01/05/2013 8:54 AM EDT 1 mg PRN, Starting on Krystal 01/05/13 at 0854, Until Krystal 01/05/13 at 1112, Sleep, Anesthesia Intra-op, Routine ondansetron (ZOFRAN) injection Given 01/05/2013 10:38 AM EDT 4 mg PRN, Starting on Krystal 01/05/13 at 1038, Until Krystal 01/05/13 at 1112, Nausea, Anesthesia Intra-op, Routine PHENYLephrine HCl in NS (PF) (DEBORAH-SYNEPHRINE) Given 9:51 AM EDT 80 mcg 0.8 mg/10 mL (80 mcg/mL) injection Syrg PRN, Starting on Krystal 01/05/13 at 0951, Until Krystal 01/05/13 at 1112, Anesthesia Intra-op, Routine propofol (DIPRIVAN) 10 mg/mL bolus injection Given 12/2012 8:54 AM EDT 200 mg (Anesthesia) PRN, Starting on Krystal 01/05/13 at 0854, Until Krystal 01/05/13 at 1112, Anesthesia Intra-op documented in this encounter Care Teams Machine Clerical Verifier Relationship Specialty Start Date End Date Matt Mcdonnell DO PCP - General 11/15/12 11/29/19 [address] [place] [address] documented as of this encounter
--- OUTSIDE RECORDS SUMMARY | 2022-04-03 12:34 | XMS_ITS | Encounter Summary ---
:1935 Author Organization [facility] [place] [address] Care Team Providers Name Role Phone Matt Mcdonnell Primary Care Provider Encounter Details Date Type Department Care Team Description 02/14/2013 Notes Only Radiation Oncology at Lauren Vasquez MSW [facility] OFFICE OF CARE [address] [place], [place] [id number] [phone] Social History Tobacco Use Types Packs/Day Years [...] documented as of this encounter Progress Notes Lauren Vasquez MSW - 02/15/2013 8:47 AM EDT Reason for Referral: Brief assessment of social and emotional needs. Met with pt after her sim on 02-14-13. Reviewed intake note from CAROLINE Moss on 12-22-12. Social Supports: Pt's September 2011. She has 3 daughters who live in [place] and one son who lives local to her. She reports she has a number of good friends. Living Situation/Daily Activities/Transportation: pt manages her daily activities and chores. She does drive and also has had offers from others to assist her with trips in for treatment. 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 She is able to manage her financial obligations. She has Medicare and a secondary insurance. Advance Directives: Completed and a copy is in her record. Adjustment to Illness/Mental Health Issues: Over all pt indicated she is coping well. She has a lot of support from her family and friends. She may still be dealing with the loss of her . Identified Needs: pt did not identify any needs at this time. Assessment: Pt feels well supported. Pleased her cancer was diagnosed early. Plan: Informed pt of my availability to follow for support and resources. documented in this encounter Plan of Treatment Upcoming Encounters Date Type Specialty Care Team Description 04/06/2022 Appointment Pulmonology 04/06/2022 Office Visit Pulmonology Matt Watson MD [facility] PULMONARY [place], [place] [address] (Wo rk) documented as of this encounter Visit Diagnoses Not on filedocumented in this encounter Care Teams Adjunct Instructor In Economics Relationship Specialty Start Date End Date Matt Mcdonnell DO PCP - General 11/15/12 11/29/19 [address] [place] [address] documented as of this encounter
--- OUTSIDE RECORDS SUMMARY | 2022-04-03 12:34 | XMS_ITS | Encounter Summary ---
:1935 Author Organization [facility] Address [address] [place] [address] Care Team Providers Name Role Phone Matt Mcdonnell Primary Care Provider Reason for Visit Reason Comments On Treatment Visit Encounter Details Date Type Department Care Team Description 03/28/2013 Office Visit Radiation Oncology at [facility], Nargis Parada MD Breast CA (Primary Dx) [address] [place], [place] RADIATION ONCOL OGY [address] [place] [address] [phone] Social History Tobacco Use Types Packs/Day Years [...] Sign Reading Time Taken Comments Blood Pressure 166/71 03/28/2013 12:00 PM EDT Pulse 55 03/28/2013 12:00 PM EDT Temperature - - Respiratory Rate - - Oxygen Saturation 96% 03/28/2013 12:00 PM EDT Inhaled Oxygen Concentration - - Weight - - Height - - Body Mass Index - - documented in this encounter Patient Instructions Patient InstructionsNorma Kowalski MD - 03/28/2013 12:55 PM EDT Your radiotherapy will complete on ., 03/31/13. Please continue toñito's cream to the irradiated area until you return for followup. Please do not resume your regular deodorant or a straight regular razor for your right underarm for now. Please protect the irradiated area from sun exposure. We will mail you a letter in about 3 weeks with an appointment to see a Radiation Oncology nurse practitioner in 1 - 2 months. After that visit, it is likely that you will be able to resume your regular deodorant & use a regular, straight razor for your right underarm. Please let me know if you develop a copious yellow discharge from the irradiated area. documented in this encounter Progress Notes Norma Kowalski MD - 03/28/2013 12:48 PM EDT DIAGNOSIS: Breast, R, IDC, low gr, ER+MD+, [id number]-, s/p lumpectomy & SNB; stage I, pT1b pN0; AIafter xrt under consideration. CURRENT TREATMENT DOSE: 45.06 Gy ANTICIPATED TOTAL DOSE: 52.56 Gy Current # of xrt received: 17 Anticipated total # of xrt txs: 20 Evaluation of port verification films: Approved. For details, see electronic film record in [employer]. Changes in Medical Condition: Denies soreness/itchiness. Using toñito's cream. CBC & diff drawn yesterday @ [facility] for Dr. Feliciano. Pain?: No. Physical Exam: BP 166/71 Pulse 55 SpO2 96% A&Ox3, in NAD. Moderate erythema of skin w/in irrad'd area w/mild folliculitis in UIQ R breast; skin intact. Labs: CBC 03/08/13: WBC 9.3, Hgb 14.0, Hct 44.1, Plts 78 K, ANC 6.3. Response to xrt: As expected. Irradiation Related Symptoms: Skin rxn. Treatment for Symptom Control: Toñito's cream. Pain Management: None needed. Recommendation on Continuing Course of xrt: Cont. Completes . Rtc 1 - 2 mos w/Rad Onc SQUIRT MACHINE OPERATOR. Check result of CBC drawn yesterday @ [place] [facility]. Dr. Feliciano 04/07/13. documented in this encounter Plan of Treatment Upcoming Encounters Date Type Specialty Care Team Description 04/06/2022 Appointment Pulmonology 04/06/2022 Office Visit Pulmonology Matt Watson MD [facility] ER PULMONARY [place], [place] [address] (Wo rk) documented as of this encounter Visit Diagnoses Diagnosis Breast CA - Primary Malignant neoplasm of breast (female), u nspecified site documented in this encounter Care Teams Mobile Designer Relationship Specialty Start Date End Date Matt Mcdonnell DO PCP - General 11/15/12 11/29/19 [address] [place] [address] documented as of this encounter
--- OUTSIDE RECORDS SUMMARY | 2022-04-03 12:34 | XMS_ITS | Encounter Summary ---
:1935 Author Organization [facility] [place] [address] Care Team Providers Name Role Phone FritzMatt hollins Martha KHAN Primary Care Provider Reason for Visit Reason Comments Follow-up s/p partial mastectomy Encounter Details Date Type Department Care Team Description 01/24/2013 Office Visit General Surgery at Yakov Beck Post -operative state [facility] MD Rob (Primary Dx) [facility] [address] [place] GENERAL SURGERY [address] [place] [address] [phone] Social History Tobacco Use Types Packs/Day Years [...] documented as of this encounter Progress Notes Yakov Beck MD - 01/24/2013 11:54 AM EDT The patient is status post right partial mastectomy and sentinel lymphadenectomy and left major ductal excision of the left breast for a presumed papilloma associated with nipple discharge. The final pathology report shows negative margins in the right breast and a negative sentinel lymph node. The left breast excision is partial excision of a papilloma with some atypia borderline on DCIS. She is doing well postoperatively with well-healed incisions. Very little pain. She will be seen at [facility] for Radiation Oncology and Medical Oncology. I will see her back in six months for routine followup. documented in this encounter Plan of Treatment Upcoming Encounters Date Type Specialty Care Team Description 04/06/2022 Appointment Pulmonology 04/06/2022 Office Visit Pulmonology Matt Watson MD [facility] PULMONARY [place], [place] [address] (Wo rk) documented as of this encounter Visit Diagnoses Diagnosis Post-operative state - Primary Other postprocedural status documented in this encounter Care Teams Gunner'S Mate M Relationship Specialty Start Date End Date Matt Mcdonnell DO PCP - General 11/15/12 11/29/19 [address] [place] [address] documented as of this encounter
--- OUTSIDE RECORDS SUMMARY | 2022-04-03 12:34 | XMS_ITS | Encounter Summary ---
:1935 Author Organization [facility] [place] [address] Care Team Providers Name Role Phone RoMatt dejesus Primary Care Provider Reason for Visit Reason Comments Radiation Treatment Encounter Details Date Type Department Care Team Description 03/31/2013 Unscheduled Radiation Oncology Norma Kowalski, Breast CA (Primary Encounter at [facility] MD Dx) [address] [place] [id number] RADIATION [phone] [place] [address] Social History Tobacco Use Types Packs/Day Years [...] documented as of this encounter Progress Notes Norma Kowalski MD - 05/03/2013 7:53 AM EST Barbara Casarez has completed xrt for breast ca, R, IDC, low gr, ER+AL+, [id number]-, s/p lumpectomy & SNB, stage I, pT1b pN0. AI to be considered after completion of xrt. The course of xrt can be summarized as follows: Treatment was given from 03/06/13 to 03/31/13. 4256 cGy in 16 fxs was given to R breast, followed by cone down & boost of 1000 cGy in 4 fxs to seroma cavity, boosting seroma cavity to 5256 cGy in 20 fxs. 3D xrt used throughout treatment, with 6& 10 MV Xray external beam. The course of xrt was tolerated well, w/the expected side effects of skin reaction managed w/pilo's cream. Exam near completion of xrt showed moderate erythema of skin w/in irradiated area w/mild folliculitis in UIQ R breast; skin intact. Due to known thrombocytopenia w/working dx of ITP, followed by Dr. Salmeron, CBC was obtained 03/27/13, showing WBC 6.0, Hgb 14.2, Hct 44.3, Plts 74 K & ANC 4.0. FU w/Rad Onc EPIC KALEIDOSCOPE ANALYST in 1 - [address] Feliciano 04/07/13. documented in this encounter Plan of Treatment Upcoming Encounters Date Type Specialty Care Team Description 04/06/2022 Appointment Pulmonology 04/06/2022 Office Visit Pulmonology Matt Watson MD [facility] PULMONARY [place], [place] [address] (Wo rk) documented as of this encounter Visit Diagnoses Diagnosis Breast CA - Primary Malignant neoplasm of breast (female), u nspecified site documented in this encounter Care Teams Canvas Baster Jumpbasting Relationship Specialty Start Date End Date Matt Mcdonnell DO PCP - General 11/15/12 11/29/19 [address] [place] [address] documented as of this encounter
--- OUTSIDE RECORDS SUMMARY | 2022-04-03 12:34 | XMS_ITS | Encounter Summary ---
:1935 Author Organization [facility] [place] [address] Care Team Providers Name Role Phone Matt Mcdonnell DO Primary Care Provider Encounter Details Date Type Department Care Team Description 08/21/2013 Telephone General Surgery at [facility] [place] [address] Social History Tobacco Use Types Packs/Day Years [...] this encounter Miscellaneous Notes Telephone Encounter - Mari Hdz - 08/21/2013 11:50 AM EDT Patient called to cancel her appointment with Carmel Herbert APRN on 08/23/13. She will be followed by her Medical Oncologist, Dr Feliciano, for breast exams and annual mammograms. documented in this encounter Plan of Treatment Upcoming Encounters Date Type Specialty Care Team Description 04/06/2022 Appointment Pulmonology 04/06/2022 Office Visit Pulmonology Matt Watson MD [facility] ER DR [place] Patel [place], [place] [address] (Wo rk) documented as of this encounter Visit Diagnoses Not on filedocumented in this encounter Care Teams Blood Donor Recruiter Relationship Specialty Start Date End Date Matt Mcdonnell DO PCP - General 11/15/12 11/29/[address] [place] [id number] documented as of this encounter
--- OUTSIDE RECORDS SUMMARY | 2022-04-03 12:34 | XMS_ITS | Encounter Summary ---
:1935 Author Organization [facility] Address [address] [place] [address] Care Team Providers Name Role Phone Matt Mcdonnell Primary Care Provider Reason for Visit Reason Comments Radiation Consult Encounter Details Date Type Department Care Team Description 02/06/2013 [facility] ([facility] Dx[facility] [address] [place], [place] RADIATION ONCOL OGY [address] [place] [address] [phone] Social History Tobacco Use Types Packs/Day Years [...] Sign Reading Time Taken Comments Blood Pressure 128/63 02/06/2013 9:24 AM EDT Pulse 67 02/06/2013 9:24 AM EDT Temperature 34.7 ??C (94.5 ??F) 02/06/2013 9:24 AM EDT Respiratory Rate 20 02/06/2013 9:24 AM EDT Oxygen Saturation 96% 02/06/2013 9:24 AM EDT Inhaled Oxygen Concentration - - Weight 89.4 kg (197 lb) 02/06/2013 9:24 AM EDT Height - - Body Mass Index 39.79 01/05/2013 7:13 AM EDT documented in this encounter Patient Instructions Patient InstructionsNorma Kowalski MD - 02/06/2013 10:48 AM EDT Once you start radiotherapy, please do not expose the irradiated area to sun. Once you start radiotherapy, please do not use your regular deodorant on your right underarm. You may use [employer] deodorant (a natural deodorant sold in many grocery stores/pharmacies), cornstarch or baking soda. Please do not use a straight/regular razor on your right underarm once you start radiotherapy. You may use an electric shaver. documented in this encounter Progress Notes Norma Kowalski MD - 02/06/2013 10:23 AM EDT Images from the original note were not included. CC: Referred by Dr. Beck for eval for xrt for breast ca. HPI: 77 y/o f who, in '05 underwent excisional bx from L breast by Dr. Roberts, surgeon @ [facility],w/path showing duct ectasia. She had presented w/L nipple discharge, which continued, & for which she had been seen by Dr. Beck, most recently in '. 11/15/12 routine screening mmg: Indeterminate in R breast w/focal asymmetry in UOQ, requiring additional imaging. L mmg neg. 11/28/12 R mmg & R breast US: R breast lesion 1; SUSPICIOUS; 6 mm irregular hypoechoic mass; @ 1100. 12/05/12 needle bxs R breast, of 6 mm mass in UOQ @ 1100. Path: IDC. DCIS. LCIS. ER+KY+. Ulr2mur-. 12/09/12 CXR: No met dz. Borderline cardiomegaly. [...] rec for excisional bx 12/21/12 eval by mauro Bucio/exam showing symmetrical breasts w/o skin/nipple changes, no [...] lymph node, neg; pT1b pN0. 01/25/13 FU w/mauro Bucio/plan for eval by Rad Onc & Med Onc, rtc [address] Feliciano 02/10. Healed well from surg. No pain. No [...] (LUMPECTOMY) performed by Yakov Beck MD at [facility] MAIN OR ??? Mastectomy, partial 01/05/2013 MASTECTOMY PARTIAL performed by Yakov Beck MD at [facility] MAIN OR ??? Bx/remv, lymph node, deep axill 01/05/2013 BIOPSY OR EXCISION OF LYMPH NODE(S), OPEN, DEEP AXILLARY NODE(S) performed by Yakov Beck MD at [facility] MAIN OR ??? Identify sentinel node 01/05/2013 SENTINEL NODE INJECTION performed by Yakov Beck MD at [facility] MAIN OR 12/28/12 L knee arthroscopy P&SH: Neg for smoking. Physical Exam Constitutional: [...] no inverted nipple,no mass, no nipple discharge, no skin change [...] normal. Judgment and thought content normal. Labs: 12/27/12 CBC: WBC 7.7, Hgb 14.5, Hct 43.4, Plts 74 K, ANC 5.5. A: Breast ca, R, IDC, low gr, ER+KY+, Dmx6tnh-, s/p lumpectomy & SNB, stage I, pT1b pN0. P: Discussed data showing 10 yr local recurrence of 2% in women over age 70 yrs w/early stage, ER+KY+ breast ca treated w/xrt + hormonal tx vs 8% w/hormonal tx alone. No difference in survival. Discussed how pursuing tx w/xrt + hormonal tx or hormonal tx alone are reasonable options. Xrt would be comprised of 20 daily fxs, assuming no chemo given & CT based xrt plan shows acceptable dose homogeneity. Possible side effects of xrt to breast discussed, w/acute/immediate side effects including: Pinkening, soreness & peeling of skin in treated area; swelling of treated breast; soreness of treated breast; cough; shortness of breath; tiredness. With her h/o thrombocytopenia, it is possible her platelets may decrease during xrt, as a small amount of bone marrow will be irradiated. Late/terminal supervisor side effects to breast discussed include: Treated breast may shrink, become firmer & sit higher on chest; achiness/stiffness of chest wall on treated side; R sided rib fracture; CT after xrt may show scarring w/in small volume of lung on treated side. Need for CTsim prior to xrt discussed. She would like to pursue tx w/xrt & will return 02/14/[address] Will likely obtain CBC weekly during xrt, given her h/o thrombocytopenia, as a small amount of bone marrow will be irradiated. 25 mins of 45 min visit w/face to face visit w/Barbara spent in discussion regarding tx plan. Marleni Joshi RN - 02/06/2013 9:41 AM EDT RADIATION ONCOLOGY NURSING INITIAL NURSING ASSESSMENT IDENTIFICATION: 77 year old female with newly diagnosed right breast cancer. ADVANCE DIRECTIVES: In EDH [ x ] Has documents [ ] Will bring in [ ] IF NO: Advance Directive pamphlet provided: [ ] Referral to Care Management : [ ] PRESENTING SYSTEMS and PATHOLOGY: presented on abnormal screening mammogram. Surgical pathology shows invasive ductal carcinoma. Negative sentinal node. REVIEW OF SYSTEMS:Review of Systems Constitutional: Negative for fever, activity change and appetite change. HENT: Negative for hearing loss, trouble swallowing and neck stiffness. Eyes: Negative for visual disturbance. Respiratory: Negative for cough, choking, chest tightness, shortness of breath, wheezing and stridor. Cardiovascular: Negative for chest pain (s/p left knee arthroscopy 12/28) and leg swelling. Gastrointestinal: Negative for nausea, vomiting, diarrhea and constipation. Genitourinary: Negative for dysuria, vaginal bleeding, vaginal discharge and vaginal pain. Musculoskeletal: Negative for back pain. Arthralgias: s/p left knee arthroplasty 12/28 with current outpatient physical therapy. Skin: Positive for wound (s/p right partial mastectomy, left incsion for papilloma). Neurological: Positive for dizziness, weakness, light-headedness, numbness and headaches. Psychiatric/Behavioral: Negative for sleep disturbance. The patient is not nervous/anxious. Prior Radiotherapy: [ x ] no [ ] yes Site: Date: Facility: Prior Chemotherapy: [ x ] no [ ] yes Drug: Oncologist- LastTreatment: Prior hormone treatment/medications: [ ] no [x Yes] Drug: LastTreatment:post menopausal RADIATION SPECIFIC REVIEW: NO: YES: Claustrophobia or requires sedation for MRIs x Allergy to CT or MRI contrast agent or iodine or shellfish x Diabetic and on metformin x Metal in body, implanted device, worked with metal, body piercings,braces x Dentures or hearing device x Pacemaker x Difficulty breathing while lying flat x Kidney problems/creatinine x Balance difficulty: [x ]no [ ]yes At risk for fall: [x ] no [ ] yes ADL [ x ] no limits [ ] needs dressing assistance [ ] needs meal assistance Assistive device:[ x]none [ ]cane [ ]walker [ ]wheelchair [ ]other: explain PAIN ASSESSMENT: [ 0] out of 10 Location: Description: [ ] Dull [ ] Sharp [ ] Burning [ ] Throbbing [ ] Radiating [ ] Continuous [ ]Intermittent Aggravating Factors: [ ] Movement [ ] Position [ ]Immobility [ ]Other Alleviating Factors: [ ]Medication [ ] Positioning [ ] Other Current Pain Management Plan: [ ]Satisfied [ ] Not satisfied SOCIAL ASSESSMENT: See [facility] social assessment information entered. Support Systems: good support system per Barbara Barriers to treatment: none identified Referrals/Interventions: LEARNING STYLE: Visual and verbal, wants written material and verbal discussion. TEACHING: LEARNING STYLE: Visual and verbal, wants written material and verbal discussion. Language barriers: [ x ] no [ ] yes [ ] NCI Radiation therapy and You?? and folder given [ ] Site Specific literature provided and reviewed with patient [ ] Other: pilo's cream given documented in this encounter Plan of Treatment Upcoming Encounters Date Type Specialty Care Team Description 04/06/2022 Appointment Pulmonology 04/06/2022 Office Visit Pulmonology Matt Watson MD [facility] [place] [facility] (Wo rk) documented as of this encounter Visit Diagnoses Diagnosis Breast CA - Primary Malignant neoplasm of breast (female), u nspecified site documented in this encounter Care Teams Energy Sales Consultant Relationship Specialty Start Date End Date Matt Mcdonnell DO PCP - General 11/15/12 11/29/19 [address] [place] [address] documented as of this encounter
--- OUTSIDE RECORDS SUMMARY | 2022-04-03 12:34 | XMS_ITS | Encounter Summary ---
:1935 Author Organization [facility] [address] Care Team Providers Name Role Phone Matt Mcdonnell Martha KHAN Primary Care Provider Reason for Visit Reason Comments Simulation Encounter Details Date Type Department Care Team Description 02/14/2013 Ancillary Radiation Oncology Norma Kowalski Breast CA ; Appointment at [facility] MD ITP (idiopathic thrombocytopenic purpura ) [address] [place] [address] [place], [place] RADIATION [id number] ONCOLOGY [phone] [place] [address] Social History Tobacco Use Types Packs/Day Years [...] PM EDT documented as of this encounter Patient Instructions Patient InstructionsMarleni Joshi RN - 02/14/2013 12:48 PM EDT Section of Radiation Oncology [place], [place] Our normal business hours are: Wednesday - Wednesday 8 AM to 5 PM If you have questions about your radiation appointments please ask to speak to the Radiation Oncology assistant corporate secretary. If you have questions for the nurse about radiation treatments, radiation side effects or you are not feeling well it is best to call early in the day. This allows the nurse to return your call by 5 PMthe same day. If you call after 4 PM, and your question is not urgent, the nurse will return your call by 5 PM the following day. If you experience any of the following you need to seek emergency care immediately by calling 911 1. Sudden and unexpected breathing difficulty without any exertion 2. Sudden onset of chest pain 3. Sudden onset of severe pain or uncontrolled pain 4. Sudden onset of severe weakness and/or unable to ambulate 5. Sudden new onset of a seizure 6. Fall resulting in injury A Radiation Oncology doctor is staff electronic warfare officer after our normal hours, holidays and weekends. To call for urgent medical issues from radiation treatments that can not wait until normal business hours, please call and have the computer peripheral equipment operator page the Radiation Oncologist in call. documented in this encounter Progress Notes Norma Kowalski MD - 02/14/2013 2:37 PM EDT In for sim. Sim: Breast bd immobilization; custom cushion; flat bbs on lumpectomy scar; CT through chest; tangs;custom conformal MLC. Tx Plan: 3D, w/tangs & custom conformal MLC. Start xrt 02/28/13. She is having CBC checked this wk by Dr. Feliciano. Given ITP, check CBC weekly during xrt w/ check 03/06 - ordered. Discussed w/her how the xrt may cause a decrease in her plt count due to the small amount of bone marrow in ribs & that some of her R ribcage will be irradiated. Marleni Joshi RN - 02/14/2013 12:47 PM EDT Initial Patient Education for Radiation Treatments Literature reviewed and given to patient: #1 Radiation Therapy and You a Guide to Self-Help During Cancer Treatment U.S. Department of Health and Human Services National Institutes of Health Publication No. 07-7157 National Cancer [place] Revised July 2006 #2 [facility];Shared drive/info for RT Patients: a) Information for Patients Receiving Radiation Therapy b) Managing Cancer Treatment Related Fatigue Adapted from Cancersytoms.org Information for understanding cancer on c) Skin Care for Patients Receiving Radiation Therapy d) Radiation Therapy Billing Information e) Disease site specific Information: Information for Patients Receiving Radiation Therapy To The breast f) What Side Effects May Occur With Radiation Therapy to the Breast and Chest Area? [place] [employer] #3 Miscellaneous: Jeans cream supplied with the instructions to apply to site of radiation twice a day, but not less than 3 hours before radiation treatment. Contact information: If you have any questions or concerns regarding your cancer, please call: During business hours of 8 AM - 5 PM : [facility] [phone] Weekend/holidays/nights: [facility] [phone] and ask for the staff electronic warfare officer radiation oncologist For general medical questions not related to cancer; Please contact your primary physician. For medical emergencies needing immediate attention;contact local primary physician, go to local hospital emergency room,or call 911. Patient verbalized understanding of these instructions and the importance of reading them more thoroughly at home. Information was presented w/ folder and above contact information. Patient was encouraged to call if there are any questions or concerns. 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
--- OUTSIDE RECORDS SUMMARY | 2022-04-03 12:34 | XMS_ITS | Encounter Summary ---
:1935 Author Organization [facility] [place] [address] Care Team Providers Name Role Phone RoMatt dejesus Primary Care Provider Encounter Details Date Type Department Care Team Description 04/07/2013 Unscheduled Hematology Oncology Keila De La Rosa surveillance Encounter at [facility] CHEL Patel and counseling [address] [place] [address] (Primary Dx) [place] [address] Social History Tobacco Use Types [...] documented as of this encounter Progress Notes Keila De La Rosa RD - 04/07/2013 1:11 PM EST [facility] Initial Dietitian Assessment Seen By: Keila De La Rosa RD, LD Referred by: Dr. 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 She was diagnosed with cancer of the right breast, pT1bN0. She underwent a partial mastectomy on 01/05/13 and finished RT in Feb 2013. Assessment: HPI: Patient Active Problem List Diagnosis Code ??? Breast cancer 174.9 Meds: Reviewed Labs: Reviewed, elevated LDL, low HDL Weights: Ht: 147 cm Wt: 88.5 kg BMI: 41 IBW: 46-51 kg % IBW: 174% ABW: 66 kg Wt Hx: Wt stable x 5 months ___ Edema ___ Ascites ___Muscle wasting Estimated Nutrient Needs Calorie needs: 8621-4402 kcals Protein needs: 66-86 g Fluid needs: 1800 cc Subjective: I know I should lose weight. Last few years, I've gained weight after New Year's. has . Food Intake: Food allergies or avoidances: denies Am: 2 slices toast with butter with jelly or honey, cereal, coffee OR eggs/amaral 1-2x/week Noon: [place] sandwich Pm: Leftovers from Wednesday dinner - spaghetti OR hamburger, potato OR ajck's pie OR roast chicken Snacks: Try not to, cheese sticks or apple, likes salad Fluids: Don't drink enough fluids Coffee, juice, 1 bottle water, occ Gatorade Supplements/Frequency: N/A ___ Ensure/Plus ___ Boost/Plus ___ CIB ___ Other: Teas, vitamins, or other nutritional supplements: MVI, Ca/D (400 Vitamin D), she notes her Vitamin Dwas normal when checked in 10/2012 Symptoms: Appetite: good Bowels: Normal, no bowel meds Physical Activity: Don't do anything walking, had knee surgery this summer, PT 2x/week to [facility], maintenance therapy through winter, I should be walking everyday. Has arthritis in knees Social: Food availability/purchasing, meal planning and preparation: Herself Social Support: Son lives close by, she lives alone Level of Motivation/Readiness to Change: Contemplation Nutrition Diagnosis: Obesity related to increased energy intake and low physical activity as evidenced by pt report. Assessment: Met with Ms. Casarez today to discuss general nutrition and weight management. She knows she should lose weight but has not made any changes yet to her nutrition. Encouraged making small changes, and aweight maintenance goal during the holidays was more realistic than weight loss. She eats 3 meals a day with 1- 2 snacks. She is missing protein at breakfast and relies a lot on leftovers for the week, since she lives alone. Her fluid intake is low, and she knows she should drink more water as well. Reviewed AICR plate method - encouraged eating 1/4 of her plate protein, 1/4 carbohydrate, and 1/2 vegetables. Her diet is low in fruits and vegetables. Encouraged her to gradually increase physical activi ty, and she is interested in walking more. Physical activity may help increase HDL levels. Nutrition Intervention & Goals: -- Provided strategies for weight loss. -- Increase protein intake at breakfast for satiety and weight management. Try eggs, peanut butter, Montserratian yogurt, cottage cheese. -- Follow AICR plate method - Increase fruits/veggies at meals. Fiber helps with fullness and weightmanagement. -- Encouraged physical activity: Set goal of walking every other day. -- Encouraged 5-10 servings of phytonutrient-rich plant-foods daily; complex carbohydrates in place of refined carbohydrates and sugars -- Increase fluid intake. -- Okay to increase Vitamin D to 1000 International Units, if she prefers. Educational Handouts provided: AICR Plate, Eating Well Through Cancer cookbook Other/Past Recommendations: Monitoring and Evaluation: Ms. Casarez will set f/u appt per her schedule. Thank you for this consult. documented in this encounter Plan of Treatment Upcoming Encounters Date Type Specialty Care Team Description 04/06/2022 Appointment Pulmonology 04/06/2022 Office Visit Pulmonology Matt Watson MD [facility] PULMONARY [place], [place] 0[address] (Wo rk) documented as of this encounter Visit Diagnoses Diagnosis Dietary surveillance and counseling - Pr imary documented in this encounter Care Teams Curriculum Assistant Principal Relationship Specialty Start Date End Date Matt Mcdonnell DO PCP - General 11/15/12 11/29/[address] [place] [address] documented as of this encounter
--- OUTSIDE RECORDS SUMMARY | 2022-04-03 12:35 | XMS_ITS | Encounter Summary ---
:1935 [place] [address] Care Team Providers Name Role Phone Unavailable Primary Care Provider Unavailable Encounter Details Date Type Department Care Team Description 07/23/2005 Ancillary Procedure Radiology Library at [facility] denise KAUSHIK Hudson MD [facility] [place] [address] DIAGNOSTIC [phone] RADIOLOGY [place], [place] [address] (Wo rk) Social History Tobacco Use Types Packs/Day Years Used Date Never Assessed Sex Assigned at Date Recorded Female 10/29/2021 2:50 PM EDT documented as of this encounter Plan of Treatment Upcoming Encounters Date Type Specialty Care Team Description 04/06/2022 Appointment Pulmonology 04/06/2022 Office Visit Pulmonology Matt Watson MD [facility] PULMONARY [facility] Pat[place], [place] [address] (Wo rk) documented as of this encounter Procedures Procedure Name Priority Date/Time Associated Diagnosis Comme nts LAB SCAN 10/25/2018 12:00 AM Results for this EDT procedure are i n the results section. FILM Routine 07/23/2005 12:00 AM Results for this LIBRARY-STORAGE EST procedure ar e in ONLY US BREAST the results section. documented in this encounter Results SCAN DOC: LAB (10/25/2018 12:00 AM EDT) Narrative 10/25/2018 12:00 AM EDT This result has an attachment that is no t available. Ordered by an unspecified provider. Scanning Provider MEDIA MGR SCAN EXT ORDR/RSLT Film Library Storage Only US Breast (07/23/2005 12:00 AM EST) Specimen (Source) Anatomical Location Collection Method / Collectio n Time Received Time / Laterality Volume Narrative RAD - 08/29/2018 6:02 AM EDT This exam is auto-finalizing. It's purpo se is for storage only. Flora Curry MD [facility] FILM LIBRARY ORDERABLES Performing Organization Address City/State/ZIP Code Phon e Number [place], [place] documented in this encounter Visit Diagnoses Not on filedocumented in this encounter
--- OUTSIDE RECORDS SUMMARY | 2022-04-03 12:35 | XMS_ITS | Encounter Summary ---
:1935 Author Organization [facility] [place] [address] Care Team Providers Name Role Phone Niki Purdy MD Primary Care Provider Encounter Details Date Type Department Care Team Description 07/29/2011 Orders Only General Surgery at [facility] N[place] le discharge [facility] MD Rob (Primary Dx) [facility] [place] [address] GENERAL SURGERY [phone] [place], [place] [address] Social History Tobacco Use Types Packs/Day Years Used Date Never Assessed Sex Assigned at Date Recorded Female 10/29/2021 2:50 PM EDT documented as of this encounter Plan of Treatment Upcoming Encounters Date Type Specialty Care Team Description 04/06/2022 Appointment Pulmonology 04/06/2022 Office Visit Pulmonology Matt Watson MD [facility] PULMONARY TURNER Patel [place], [place] [address] (Wo rk) documented as of this encounter Results Mammo digital bilateral Screening with CAD (11/25/2011 1:54 PM EDT) Anatomical Region Laterality Modality Breast Bilateral Mammography Specimen (Source) Anatomical Collection Method Collection Time Re ceived Time Location / / Volume Laterality 11/25/2011 1:54 PM EDT Narrative 11/30/2011 9:11 AM EDT BILATERAL MAMMOGRAPHY ?? REASON FOR EXAM: Screening. Spontaneous Left nipple discharge (pink color) last month; being followed by the [facility] for this Left nipple discharge. The patient was seen by the [facility] for history of Left nipple discharge worked up in 19 04. ?? TECHNIQUE: Cranio-caudal (CC) and mediol ateral oblique (MLO) views of both breasts obtained with direct digital cap ture. The exam was evaluated by CAD Version 8.3.17. ?? FINDINGS: This is a negative mammogram ( ACR Category 1). There is a stable fibroglandular pattern without significa nt change as compared to prior studies. There is no mammographic evidence of can cer. ? The breasts are of scattered density. ? CONCLUSION ?? This is a NEGATIVE mammogram (ACR Catego ry 1). Routine screening mammography is recommended with the frequency dependent on the patient's age and breast cancer risk factors. ? There is no imaging abnormality to corre late with the clinical finding of Left nipple discharge. Therefore, further man agement should be based on the strength of the clinical finding. ?? A letter has been sent to this patient b y the [facility]. Procedure Note Charity Wells MD - 2 BILATERAL MAMMOGRAPHY REASON FOR EXAM: Screening. Spontaneous Left nipple discharge (pink color) last month; being followed by the [facility] for this Left nipple discharge. The patient was seen by the [facility] for history of Left nipple discharge worked up in 19 04. TECHNIQUE: Cranio-caudal (CC) and mediol ateral oblique (MLO) views of both breasts obtained with direct digital cap ture. The exam was evaluated by CAD Version 8.3.17. FINDINGS: This is a negative mammogram ( ACR Category 1). There is a stable fibroglandular pattern without significa nt change as compared to prior studies. There is no mammographic evidence of can cer. The breasts are of scattered density. CONCLUSION This is a NEGATIVE mammogram (ACR Catego ry 1). Routine screening mammography is recommended with the frequency dependent on the patient's age and breast cancer risk factors. There is no imaging abnormality to corre late with the clinical finding of Left nipple discharge. Therefore, further man agement should be based on the strength of the clinical finding. A letter has been sent to this patient b y the [facility]. Yakov Beck MD IMG MAMMO ORDERABLES documented in this encounter Visit Diagnoses Diagnosis Nipple discharge - Primary Other sign and symptom in breast Nipple discharge Other sign and symptom in breast documented in this encounter Care Teams Hot Billet Shear Operator Relationship Specialty Start Date End Date Niki Purdy MD PCP - General 04/22/10 11/14/12 [facility] [address] [place] [id number] documented as of this encounter
--- OUTSIDE RECORDS SUMMARY | 2022-04-03 12:35 | XMS_ITS | Encounter Summary ---
:1935 Author Organization [facility] [place] [address] Care Team Providers Name Role Phone Niki Pudry MD Primary Care Provider Encounter Details Date Type Department Care Team Description 10/08/2010 Hospital Encounter Mammography at [facility] [place] [address] Social History Tobacco Use Types Packs/Day Years Used Date Never Assessed Sex Assigned at Date Recorded Female 10/29/2021 2:50 PM EDT documented as of this encounter Medications at Time of Discharge Medication Sig Dispensed Refills Start Date End Date CALCIUM CARBONATE/VITAMIN D3 (CALCIUM 600 0 02/25/2010 WITH VITAMIN D3 ORAL) multivitamin (THERAGRAN) tablet 0 01/30 aspirin (BABY ASPIRIN) 81 mg chewable 0 02/25/2010 05/18/2014 tablet bisoprolol-hydrochlorothiazide (ZIAC) 0 02/25/2010 04/26/2015 10-6.25 mg per tablet LOSARTAN POTASSIUM (COZAAR ORAL) 0 11/15/2012 DOCOSAHEXANOIC ACID/EPA (FISH OIL ORAL) 0 02/25/2010 11/15/2012 niacin 500 mg tablet 0 02/25/201010/29 HYDRALAZINE HCL (HYDRALAZINE ORAL) 0 0 02/25/2010 02/23/2014 terazosin (HYTRIN) 2 mg capsule 0 01/3002/06/2013 documented as of this encounter Plan of Treatment Upcoming Encounters Date Type Specialty Care Team Description 04/06/2022 Appointment Pulmonology 04/06/2022 Office Visit Pulmonology Matt Watson MD [facility] [address] ANEESH TOMPKINS [place], [place] [address] (Wo rk) documented as of this encounter Procedures Procedure Name Priority Date/Time Associated Diagnosis Comme nts MAMMO SCREENING CAD Routine 10/08/2010 10:33 AM Abnormal mammo gram Results for this BILATERAL EDT procedure are i n the results section. documented in this encounter Results Mammo digital bilateral Screening with CAD (10/08/2010 10:33 AM EDT) Anatomical Region Laterality Modality Breast Bilateral Mammography Specimen (Source) Anatomical Collection Method Collection Time Re ceived Time Location / / Volume Laterality 10/08/2010 10:33 AM EDT Narrative 10/08/2010 4:06 PM EDT BILATERAL MAMMOGRAPHY REASON FOR EXAM: Screening. Left breast bloody nipple discharge. It is not clear if this is a routine sc reen or if the patient is currently having nipple discharge which needs atte ntion. However, patient is to see Dr. Beck 5.11.11. TECHNIQUE: Cranio-caudal (CC) and mediol ateral oblique (MLO) views of both breasts obtained with direct digital cap ture. The exam was evaluated by CAD Version 8.3.17. ?FINDINGS: This is a negative mammogram (ACR Category 1). There is a s table fibroglandular pattern without significant change as compared to prior studies. There is no mammographic evidence of cancer. Etiology of nipple d ischarge, if any, is not seen. The breasts are of scattered density. CONCLUSION This is a NEGATIVE mammogram (ACR Catego ry 1). Note: Surgical follow-up recommended for MRI Only detected mass (10/11/09) and nipple discharge. Additionally, if no cu rrent breast concerns, routine screening mammography recommended. A letter has been sent to this patient b y the [facility]. Preliminary report E-mailed to Dr. Faisal Beck on 10/08/10. Procedure Note Delia Lama MD - 10/08/2010 BILATERAL MAMMOGRAPHY REASON FOR EXAM: Screening. Left breast bloody nipple discharge. It is not clear if this is a routine sc reen or if the patient is currently having nipple discharge which needs atte ntion. However, patient is to see Dr. Beck 10.08.10. TECHNIQUE: Cranio-caudal (CC) and mediol ateral oblique (MLO) views of both breasts obtained with direct digital cap ture. The exam was evaluated by CAD Version 8.3.17. FINDINGS: This is a negative mammogram (ACR Category 1). There is a s table fibroglandular pattern without significant change as compared to prior studies. There is no mammographic evidence of cancer. Etiology of nipple d ischarge, if any, is not seen. The breasts are of scattered density. CONCLUSION This is a NEGATIVE mammogram (ACR Catego ry 1). Note: Surgical follow-up recommended for MRI Only detected mass (10/11/09) and nipple discharge. Additionally, if no cu rrent breast concerns, routine screening mammography recommended. A letter has been sent to this patient b y the [facility]. Preliminary report E-mailed to Dr. Faisal Beck on 10/08/10. Yakov Beck MD IMG MAMMO ORDERABLES documented in this encounter Visit Diagnoses Diagnosis Abnormal mammogram Abnormal mammogram, unspecified documented in this encounter Care Teams Lease Out Man Relationship Specialty Start Date End Date Niki Purdy MD PCP - General 04/22/10 11/14/12 [facility] [address] [place] [address] documented as of this encounter
--- OUTSIDE RECORDS SUMMARY | 2022-04-03 12:35 | XMS_ITS | Encounter Summary ---
:1935 Author Organization [facility] Address [address] [place] [address] Care Team Providers Name Role Phone Matt Mcdonnell DO Primary Care Provider Encounter Details Date Type Department Care Team Description 11/16/2012 Orders Only Radiology Delia Lama MD Abnormal mammogram, [facility] uns pecified ([address]) [place] [address] DIAGNOSTIC [phone] RAD[place]Y [place] [address] Social History Tobacco Use Types Packs/Day Years Used Date Never Smoker Sex Assigned at Date Recorded Female 10/29/2021 2:50 PM EDT documented as of this encounter Plan of Treatment Upcoming Encounters Date Type Specialty Care Team Description 04/06/2022 Appointment Pulmonology 04/06/2022 Office Visit Pulmonology Matt Watson MD [facility] PULMONARY DISEMIRA Patel [place], [place] [address] (Wo rk) documented as of this encounter Results Mammo breast US unilateral bilateral (11/28/2012 2:50 PM EDT) Anatomical Region Laterality Modality Breast N/A Mammography Specimen (Source) Anatomical Collection Method Collection Time Re ceived Time Location / / Volume Laterality 11/28/2012 2:50 PM EDT Narrative 11/29/2012 12:31 PM EDT UNILATERAL RIGHT MAMMOGRAM AND RIGHT BREAST ULTRASOUND ON 11/28/12: ?? DIAGNOSTIC IMAGING SUMMARY: ?? RIGHT BREAST LESION 1: SUSPICIOUS (BIRAD S Category 4). ?? Finding: Irregular hypoechoic mass. ?? Size: 6mm. ?? Location: 1100, 6cm from the nipple. ?? Recommendation: Ultrasound guided biopsy . This mass has an indeterminate appearance and biopsy is recommended. is has been scheduled for 12/05/12 at 10:50am. ?? Ultrasonographic differential: Complicat ed cyst versus atypical fibroadenoma versus malignancy. ?? Findings discussed with the patient who concurs. ?? Preliminary report E-mailed to Dr. Yuri Alcala on 11/29/12. ?? NARRATIVE: ?? CLINICAL INDICATION: Focal asymmetry see n on screening mammogram of 11/15/12. ?? TECHNIQUE: Right ML, spot CC and spot ML O views obtained with direct digital capture. ?? FINDINGS: This is a (BIRADS Category 4) SUSPICIOUS Right breast for an 8mm nodular mass in the upper, outer Right b reast at 1100, 6cm from the nipple. ? Targeted ultrasound to the upper, outer quadrant of the Right breast at 1100, 6cm from the nipple demonstrates a 6 x 5 x 6mm irregular, hypoechoic mass. No increased vascularity or shadowing is as sociated with this mass. No surrounding pseudocapsule is seen. This mass has an indeterminate appearance and biopsy is recommended. The remainder of the Right breast is unremarkable. ? Procedure Note Charity Wells MD - 3 UNILATERAL RIGHT MAMMOGRAM AND RIGHT TASNEEM AST ULTRASOUND ON 11/28/12: DIAGNOSTIC IMAGING SUMMARY: RIGHT BREAST LESION 1: SUSPICIOUS (BIRAD S Category 4). Finding: Irregular hypoechoic mass. Size: 6mm. Location: 1100, 6cm from the nipple. Recommendation: Ultrasound guided biopsy . This mass has an indeterminate appearance and biopsy is recommended. is has been scheduled for 12/05/12 at 10:50am. Ultrasonographic differential: Complicat ed cyst versus atypical fibroadenoma versus malignancy. Findings discussed with the patient who concurs. Preliminary report E-mailed to Dr. Yuri Alcala on 11/29/12. NARRATIVE: CLINICAL INDICATION: Focal asymmetry see n on screening mammogram of 11/15/12. TECHNIQUE: Right ML, spot CC and spot ML O views obtained with direct digital capture. FINDINGS: This is a (BIRADS Category 4) SUSPICIOUS Right breast for an 8mm nodular mass in the upper, outer Right b reast at 1100, 6cm from the nipple. Targeted ultrasound to the upper, outer quadrant of the Right breast at 1100, 6cm from the nipple demonstrates a 6 x 5 x 6mm irregular, hypoechoic mass. No increased vascularity or shadowing is as sociated with this mass. No surrounding pseudocapsule is seen. This mass has an indeterminate appearance and biopsy is recommended. The remainder of the Right breast is unremarkable. Delia Lama MD IMG MAMMO ORDERABLES Mammo call back diagnostic extra view unilateral (11/28/2012 2:33 PM EDT) Anatomical Region Laterality Modality Breast N/A Mammography Specimen (Source) Anatomical Collection Method Collection Time Re ceived Time Location / / Volume Laterality 11/28/2012 2:33 PM EDT Narrative 11/29/2012 12:31 PM EDT UNILATERAL RIGHT MAMMOGRAM AND RIGHT BREAST ULTRASOUND ON 11/28/12: ?? DIAGNOSTIC IMAGING SUMMARY: ?? RIGHT BREAST LESION 1: SUSPICIOUS (BIRAD S Category 4). ?? Finding: Irregular hypoechoic mass. ?? Size: 6mm. ?? Location: 1100, 6cm from the nipple. ?? Recommendation: Ultrasound guided biopsy . This mass has an indeterminate appearance and biopsy is recommended. Th is has been scheduled for 12/05/12 at 10:50am. ?? Ultrasonographic differential: Complicat ed cyst versus atypical fibroadenoma versus malignancy. ?? Findings discussed with the patient who concurs. ?? Preliminary report E-mailed to Dr. Yuri Alcala on 11/29/12. ?? NARRATIVE: ?? CLINICAL INDICATION: Focal asymmetry see n on screening mammogram of 11/15/12. ?? TECHNIQUE: Right ML, spot CC and spot ML O views obtained with direct digital capture. ?? FINDINGS: This is a (BIRADS Category 4) SUSPICIOUS Right breast for an 8mm nodular mass in the upper, outer Right b reast at 1100, 6cm from the nipple. ? Targeted ultrasound to the upper, outer quadrant of the Right breast at 1100, 6cm from the nipple demonstrates a 6 x 5 x 6mm irregular, hypoechoic mass. No increased vascularity or shadowing is as sociated with this mass. No surrounding pseudocapsule is seen. This mass has an indeterminate appearance and biopsy is recommended. The remainder of the Right breast is unremarkable. ? Procedure Note Charity Wells MD - 3 UNILATERAL RIGHT MAMMOGRAM AND RIGHT TASNEEM AST ULTRASOUND ON 11/28/12: DIAGNOSTIC IMAGING SUMMARY: RIGHT BREAST LESION 1: SUSPICIOUS (BIRAD S Category 4). Finding: Irregular hypoechoic mass. Size: 6mm. Location: 1100, 6cm from the nipple. Recommendation: Ultrasound guided biopsy . This mass has an indeterminate appearance and biopsy is recommended. Th is has been scheduled for 12/05/12 at 10:50am. Ultrasonographic differential: Complicat ed cyst versus atypical fibroadenoma versus malignancy. Findings discussed with the patient who concurs. Preliminary report E-mailed to Dr. Yuri Alcala on 11/29/12. NARRATIVE: CLINICAL INDICATION: Focal asymmetry see n on screening mammogram of 11/15/12. TECHNIQUE: Right ML, spot CC and spot ML O views obtained with direct digital capture. FINDINGS: This is a (BIRADS Category 4) SUSPICIOUS Right breast for an 8mm nodular mass in the upper, outer Right b reast at 1100, 6cm from the nipple. Targeted ultrasound to the upper, outer quadrant of the Right breast at 1100, 6cm from the nipple demonstrates a 6 x 5 x 6mm irregular, hypoechoic mass. No increased vascularity or shadowing is as sociated with this mass. No surrounding pseudocapsule is seen. This mass has an indeterminate appearance and biopsy is recommended. The remainder of the Right breast is unremarkable. Delia Lama MD IMG MAMMO ORDERABLES documented in this encounter Visit Diagnoses Diagnosis Abnormal mammogram, unspecified - Primar y Abnormal mammogram, unspecified Abnormal mammogram, unspecified - Primar y documented in this encounter Care Teams Malted Milk Supervisor Relationship Specialty Start Date End Date Matt Mcdonnell DO PCP - General 11/15/12 11/29/19 [address] [place] [address] documented as of this encounter
--- OUTSIDE RECORDS SUMMARY | 2022-04-03 12:35 | XMS_ITS | Encounter Summary ---
:1935 [place] [address] Care Team Providers Name Role Phone Unavailable Primary Care Provider Unavailable Encounter Details Date Type Department Care Team Description 08/07/2005 Ancillary Procedure Radiology Library at [facility] denise [facility] MD Tristan [facility] [place] [address] DIAGNOSTIC [phone] RADIOLOGY [place], [place] [address] (Wo rk) Social History Tobacco Use Types Packs/Day Years Used Date Never Assessed Sex Assigned at Date Recorded Female 10/29/2021 2:50 PM EDT documented as of this encounter Plan of Treatment Upcoming Encounters Date Type Specialty Care Team Description 04/06/2022 Appointment Pulmonology 04/06/2022 Office Visit Pulmonology Matt Watson MD [facility] PULMONARY TURNER Patel [place], [place] [address] (Wo rk) documented as of this encounter Procedures Procedure Name Priority Date/Time Associated Diagnosis Comme [facility] FILM LIBRARY Routine 08/07/2005 12:00 AM Results for this STORAGE ONLY MR EST procedure ar e in BREAST the results section. documented in this encounter Results Film Library- Storage Only MR Breast (08/07/2005 12:00 AM EST) Specimen (Source) Anatomical Location Collection Method / Collectio n Time Received Time / Laterality Volume Narrative RAD - 08/29/2018 6:14 AM EDT This exam is auto-finalizing. It's purpo se is for storage only. Flora Curry MD IM FILM LIBRARY ORDERABLES Performing Organization Address City/State/ZIP Code Phon e Number DH RAD DH [place], [place] documented in this encounter Visit Diagnoses Not on filedocumented in this encounter
--- OUTSIDE RECORDS SUMMARY | 2022-04-03 12:35 | XMS_ITS | Encounter Summary ---
:1935 Author Organization [facility] [place] [address] Care Team Providers Name Role Phone RoMatt dejesus Martha KHAN Primary Care Provider Encounter Details Date Type Department Care Team Description 11/28/2012 Hospital Encounter Mammography at [facility], DR RENAE Abnormal mammogram, [facility] Yuri Alcala MD [address] [place] [address] [place] [address] Social History Tobacco Use Types [...] Pulmonology Matt Watson MD [facility] ER DR ANEESH TOMPKINS [place] [address] (Wo rk) documented as of this encounter Procedures Procedure Name Priority Date/Time Associated Diagnosis Comme nts MAMMO CALL BACK Routine 11/28/2012 2:33 PM Abnormal mammogram, Results for this DIAGNOSTIC EXTRA EDT unspecified procedure a re in VIEW UNILATERAL the results section. documented [...] unspecified documented in this encounter Care Teams Chairman & Ceo Relationship Specialty Start Date End Date Matt Mcdonnell DO PCP - General 11/15/12 11/29/19 [address] [place] [address] documented as of this encounter
--- OUTSIDE RECORDS SUMMARY | 2022-04-03 12:35 | XMS_ITS | Encounter Summary ---
:1935 Author Organization [facility] Address [facility] [address] [place] [address] Care Team Providers Name Role Phone Matt Mcdonnell DO Primary Care Provider Encounter Details Date Type Department Care Team Description 11/28/2012 Hospital Encounter Mammography at [facility] Abnormal mammogram, [facility] unspecifi ed ([address] Dx) [place] [address] Social History Tobacco Use Types Packs/Day [...] Visit Pulmonology Matt Watson MD [facility] PULMONARY [place], [place] [address] (Wo rk) documented as of this encounter Procedures Procedure Name Priority Date/Time Associated Diagnosis Comme nts MAMMO BREAST US Routine 11/28/2012 2:50 PM Abnormal mammogram, Results for this LIMITED [...] As discussed with Ms. Casarez by Dr. Feliz ordonez on 12/07/12. ?? I was present with the resident, Dr. Looc galarza, for the ellison component(s) of the [...] As discussed with Ms. Casarez by Dr. Feliz ordonez on 12/07/12. I was present with the resident, Dr. Loco galarza, for the ellison component(s) of the procedure and otherwise remained immedia tely available for the duration of the procedure. I attest to having personally viewed the images/test and approve the above interpretation. Film and interpretation reviewed by the attending Charity Wells MD IMG MAMMO ORDERABLES Mammo breast US unilateral bilateral (11/28/2012 2:50 [...] unspecified documented in this encounter Care Teams Cigar Packer And Picker Relationship Specialty Start Date End Date Matt Mcdonnell DO PCP - General 11/15/12 11/29/19 [address] [place] [address] documented as of this encounter
--- OUTSIDE RECORDS SUMMARY | 2022-04-03 12:35 | XMS_ITS | Encounter Summary ---
:1935 Author Organization [facility] [place] [address] Care Team Providers Name Role Phone Niki Purdy MD Primary Care Provider Encounter Details Date Type Department Care Team Description 10/05/2011 Telephone General Surgery at [facility] Yakov Beck MD [facility] [place] [address] GENERAL SURGERY [phone] [place], [place] [address] (Wo rk) Social History Tobacco Use Types Packs/Day Years Used Date Never Assessed Sex Assigned at Date Recorded Female 10/29/2021 2:50 PM EDT documented as of this encounter Miscellaneous Notes Telephone Encounter - Kayleen Russell - 10/05/2011 4:40 PM EDT Ms Casarez called to cancel her yearly appointment with Dr Beck because her is very ill. She just had a breast exam with her [employer] SD ANALYST dr and is not concerned at this time. She will call to reschedule when things are better. documented in this encounter Plan of Treatment Upcoming Encounters Date Type Specialty Care Team Description 04/06/2022 Appointment Pulmonology 04/06/2022 Office Visit Pulmonology Matt Watson MD [facility] [address] ANEESH [place] [address] (Wo rk) documented as of this encounter Visit Diagnoses Not on filedocumented in this encounter Care Teams Chemical Checker Relationship Specialty Start Date End Date Niki Purdy MD PCP - General 04/22/10 11/14/12 [facility] [address] [place] [address] documented as of this encounter
--- OUTSIDE RECORDS SUMMARY | 2022-04-03 12:35 | XMS_ITS | Encounter Summary ---
:1935 Author Organization [facility] [place] [address] Care Team Providers Name Role Phone Matt Mcdonnell Primary Care Provider Reason for Visit Reason Onset Date Comments Medical Care Coordination 11/29/[address] [facility] for end November 2012 Encounter Details Date Type Department Care Team Description 11/29/2012 Telephone Hematology and Oncology Jennifer Dennis, Medical Care at [facility] RN Coordination (Schedule One [facility] [place] [address] November 2012) [phone] Social History Tobacco Use Types Packs/Day Years Used Date Never Smoker Sex Assigned at Date Recorded Female 10/29/2021 2:50 PM EDT documented as of this encounter Miscellaneous Notes Telephone Encounter - Jennifer Dennis, RN - 11/29/2012 10:56 AM EDT Received eShopc[employer] message from Dr Salmeron with request to order CBC locally for end November 2012. Spoke to pt to discuss POC. Aware ordred labs for end november. She states she will have labs drawn at [facility] week 12-26-12. Discussed that RN will send order to [facility] lab today. RN generated order in e-DH for CBC w/diff. Faxed to [facility] Lab [phone]. RN to track labs. documented in this encounter Plan of Treatment Upcoming Encounters Date Type Specialty Care Team Description 04/06/2022 Appointment Pulmonology 04/06/2022 Office Visit Pulmonology Matt Watson MD [facility] PULMONARY [place], [place] [address] (Wo rk) documented as of this encounter Results (ABNORMAL) CBC (with Diff) (12/27/2012 11:12 AM EDT) [facility] gist Method Time Signature WBC 7.7 EXTERNAL [...] purpura ) - Primary Immune thrombocytopenic purpura documented in this encounter Care Teams Senior Research Fellow Relationship Specialty Start Date End Date Matt Mcdonnell DO PCP - General 11/15/12 11/29/19 [address] [place] [address] documented as of this encounter
--- OUTSIDE RECORDS SUMMARY | 2022-04-03 12:35 | XMS_ITS | Encounter Summary ---
:1935 Author Organization [facility] Address [address] [place] [address] Care Team Providers Name Role Phone Matt Mcdonnell Primary Care Provider Reason for Visit Reason Comments Follow-up Encounter Details Date Type Department Care Team Description 11/15/2012 Office Visit Hematology and Matias Salmeron Thrombocyto penia (Primary Dx); Oncology at [facility] ITP (idiopathic thrombocytopenic purpura ); [facility] rombocytopenic purpura [facility] [address] HEMATOLOGY/ON[place] [id number] [facility] DEPT. [phone] [place] [address] Social History Tobacco Use Types Packs/Day Years Used Date Never Smoker Sex Assigned at Date Recorded Female 10/29/2021 2:50 PM EDT documented as of this encounter Last Filed Vital Signs Vital Sign Reading Time Taken Comments Blood Pressure 142/54 11/15/2012 10:21 AM EDT Pulse 66 11/15/2012 10:21 AM EDT Temperature 36.7 ??C (98.1 ??F) 11/15/2012 10:21 AM EDT Respiratory Rate 18 11/15/2012 10:21 AM EDT Oxygen Saturation 96% 11/15/2012 10:21 AM EDT Inhaled Oxygen Concentration - - Weight 89.2 kg (196 lb 9.6 oz) 11/15/2012 10:21 AM EDT Height 147.9 cm (4' 10.23) 11/15/2012 10:21 AM EDT Body Mass Index 40.77 11/15/2012 10:21 AM EDT documented in this encounter Progress Notes Matias Salmeron MD - 11/17/2012 12:35 PM EDT Subjective: Patient ID: Barbara Casarez is a 76 y.o. female. HPI Review of Systems Constitutional: Negative for fever, fatigue and unexpected weight change. HENT: Negative for nosebleeds. Respiratory: Negative for cough and shortness of breath. Cardiovascular: Negative for chest pain and palpitations. Gastrointestinal: Negative for abdominal pain and diarrhea. Musculoskeletal: Negative for back pain. Skin: Negative for rash. Neurological: Negative for speech difficulty. Hematological: Negative for adenopathy. Does not bruise/bleed easily. All other systems reviewed and are negative. Objective: Physical Exam Constitutional: She is oriented to person, place, and time. She appears well- nourished. No distress. HENT: Mouth/Throat: No oropharyngeal exudate. Eyes: No scleral icterus. Cardiovascular: Normal rate, regular rhythm and normal heart sounds. Pulmonary/Chest: Effort normal and breath sounds normal. She has no wheezes. Abdominal: Soft. Bowel sounds are normal. She exhibits no mass. There is no tenderness. Musculoskeletal: She exhibits no edema. Lymphadenopathy: She has no cervical adenopathy. Neurological: She is alert and oriented to person, place, and time. Skin: No rash noted. Recent Results (from the past 72 hour(s)) CBC (WITH DIFF) Component Value Range WBC 9.8 4.0 - 10.0 x10(3)/mcL RBC 4.86 3.93 - 5.22 x10(6)/mcL Hemoglobin 13.9 11.2 - 15.7 gm/dL Hematocrit 43.0 34.0 - 45.0 % MCV 88.5 79.0 - 94.0 fL MCH 28.6 26.6 - 32.2 pg MCHC 32.3 32.0 - 36.5 gm/dL Platelets 76 (*) 145 - 370 x10(3)/mcL RDWSD 44.6 35.0 - 46.0 fL RDWCV 13.8 10.9 - 14.4 % MPV 12.4 (*) 9.0 - 12.0 fL COMPREHENSIVE METABOLIC PANEL (NON-FASTING) Component Value Range Glucose Lvl 117 60 - 199 mg/dL BUN 13 8 - 18 mg/dL Creatinine 0.96 0.70 - 1.20 mg/dL Sodium 139 135 - 145 mmol/L Potassium 3.7 3.5 - 5.0 mmol/L Chloride 104 98 - 107 mmol/L CO2 26 22 - 31 mmol/L Anion Gap 9 5 - 15 mmol/L Calcium 9.4 8.5 - 10.5 mg/dL Total Protein 6.3 (*) 6.4 - 8.3 gm/dL Albumin 3.8 3.2 - 5.2 gm/dL AST 18 0 - 30 unit/L ALT 15 0 - 30 unit/L Alk Phos 60 40 - 104 unit/L Total Bilirubin 0.3 0.2 - 1.3 mg/dL Bili, Direct 0.1 0.0 - 0.3 mg/dL Estimated GFR 57 (*) >=60 PROTEIN ELECTROPHORESIS, SERUM Component Value Range Total Prot Elec 6.0 (*) 6.1 - 8.0 gm/dL Albumin Elect 3.94 3.60 - 6.00 gm/dL Alpha1-Globulin 0.17 0.10 - 0.30 gm/dL Alpha2-Globulin 0.67 0.40 - 0.90 gm/dL Beta Globulin 0.60 0.50 - 1.00 gm/dL Gamma Globulin 0.62 0.50 - 1.30 gm/dL M1 Band None Detected None Detected gm/dL Scan See Note FOLATE, SERUM Component Value Range Folate Lvl >20.0 4.6 - 34.8 ng/mL FERRITIN Component Value Range Ferritin 66 30 - 400 ng/mL VITAMIN B12 Component Value Range Vitamin B-12 716 207 - 974 pg/mL SEDIMENTATION RATE Component Value Range Sed Rate 16 0 - 20 mm/hr HIV Component Value Range HIV 1/2 Ab Negative HEPATITIS C ANTIBODY Component Value Range Hepatitis C Ab Negative Negative RHEUMATOID FACTOR, QUANT Component Value Range RF <10 <=14 IU/mL OMAR Component Value Range OMAR Neg Neg DIFFERENTIAL, AUTOMATED Component Value Range Neutrophils % 69.2 34.0 - 71.0 % Neutr Abs (ANC) 6.78 (*) 1.50 - 6.30 x10(3)/mcL Lymphocytes % 22.2 19.0 - 53.0 % Lymphocytes Abs 2.2 1.0 - 3.6 x10(3)/mcL Monocytes % 6.5 4.0 - 13.0 % Monocyte Abs 0.6 0.2 - 1.0 x10(3)/mcL Eosinophils % 1.8 0.0 - 7.0 % Eosinophils Abs 0.2 0.0 - 0.5 x10(3)/mcL Basophils % 0.2 0.0 - 2.0 % Basophils Abs 0.0 0.0 - 0.2 x10(3)/mcL Immature Gran % 0.10 0.00 - 0.66 % Елена Gran Abs 0.01 0.00 - 0.05 x10(3)/mcL Assessment and Plan: documented in this encounter Plan of Treatment Upcoming Encounters Date Type Specialty Care Team Description 04/06/2022 Appointment Pulmonology 04/06/2022 Office Visit Pulmonology Matt Watson MD [facility] PULMONARY [place], [place] [address] (Wo rk) documented as of this encounter Procedures Procedure Name Priority Date/Time Associated Diagnosis Comme nts DIFFERENTIAL, STAT 11/15/2012 11:35 Results fo r this AUTOMATED AM EDT procedure are i n the results section. HEPATITIS C ANTIBODY STAT 11/15/2012 11:35 Thrombocytopenia Results for this AM EDT procedure are i n the results section. METHYLMALONIC ACID, STAT 11/15/2012 11:35 Thrombocytopenia Results for this SERUM AM EDT procedure are i n the results section. HEPATITIS B CORE STAT 11/15/2012 11:35 Thrombocytopenia Res ults for this ANTIBODY, IGM AM EDT procedure are in the results section. HIV SCREEN, 4TH STAT 11/15/2012 11:35 Immune thrombocytopen ic Results for this GENERATION AM EDT purpura procedure are in ([facility]/APD/[facility]) Thrombocytopenia the r esults section. SEDIMENTATION RATE STAT 11/15/2012 11:35 Thrombocytopenia R esults for this AM EDT procedure are i n the results section. CBC (WITH DIFF) STAT 11/15/2012 11:35 Thrombocytopenia Resu lts for this AM EDT procedure are i n the results section. RHEUMATOID FACTOR, STAT 11/15/2012 11:35 Thrombocytopenia R esults for this QUANT AM EDT procedure are i n the results section. OMAR ANTIBODY SCREEN STAT 11/15/2012 11:35 Thrombocytopenia Results for this AM EDT procedure are i n the results section. PROTEIN STAT 11/15/2012 11:35 Thrombocytopenia Results for this ELECTROPHORESIS, AM EDT procedure a re in SERUM the results section. FOLATE, SERUM STAT 11/15/2012 11:35 Thrombocytopenia Result s for this AM EDT procedure are i n the results section. FERRITIN STAT 11/15/2012 11:35 Thrombocytopenia Results for this AM EDT procedure are i n the results section. VITAMIN B12 STAT 11/15/2012 11:35 Thrombocytopenia Results for this AM EDT procedure are i n the results section. COMPREHENSIVE STAT 11/15/2012 11:35 Thrombocytopenia Result s for this METABOLIC PANEL AM EDT procedure ar e in (NON-FASTING) the results section. documented in this encounter Results (ABNORMAL) Differential, Automated (11/15/2012 11:35 AM EDT) [facility] gist Method Time Signature Neutrophils % 69.2 34.0 - CERNER 71.0 % MILLENNIUM Neutr Abs (ANC) 6.78 (H) 1.50 - CERNER 6.30 MILLENNIUM x10(3)/mc L Lymphocytes % 22.2 19.0 - CERNER 53.0 % MILLENNIUM Lymphocytes Abs 2.2 1.0 - 3.6 CERNER x10(3)/mc MILLENNIUM L Monocytes % 6.5 4.0 - CERNER 13.0 % MILLENNIUM Monocyte Abs 0.6 0.2 - 1.0 CERNER x10(3)/mc MILLENNIUM L Eosinophils % 1.8 0.0 - 7.0 CERNER % MILLENNIUM Eosinophils Abs 0.2 0.0 - 0.5 CERNER x10(3)/mc MILLENNIUM L Basophils % 0.2 0.0 - 2.0 CERNER % MILLENNIUM Basophils Abs 0.0 0.0 - 0.2 CERNER x10(3)/mc MILLENNIUM L Immature Gran % 0.10 0.00 - CERNER 0.66 % MILLENNIUM Comment: Immature granulocytes(IG's)percentage an d absolute count will include metamyelocytes, myelocytes, and promyelo cytes. Blood smears from CBCs yielding IG's will be scanned manually for concor dance. If this scan disagrees with the automated IG or if promyelocytes are not ed, a manual differential will be performed. Елена Gran Abs 0.01 0.00 - 0.05 x10(3)/mcL [facility] Specimen Anatomical Collection Method Collection Time Receive d Time (Source) Location / / Volume Laterality Blood specimen 11/15/2012 11:35 3 (specimen) AM EDT 11:39 AM EDT Matias Salmeron MD HEMATOLOGY ORDERABLES Performing Organization Address City/[facility]/ZIP Code Phon e Number [address] [facility] OMAR (11/15/2012 11:35 AM EDT) P athologist Signature OMAR Neg Neg [facility] Specimen Anatomical Collection Method Collection Time Receive d Time (Source) Location / / Volume Laterality Blood specimen 11/15/2012 11:35 3 2:24 (specimen) AM EDT PM EDT Resulting Agency Comment Spec In Lab Matias Salmeron MD IMMUNOLOGY ORDERABLES Performing Organization Address City/[facility]/ZIP Code Phon e Number [address] [facility] Rheumatoid factor, quant (11/15/2012 11:35 AM EDT) P athologist Signature RF <10 <=14 IU/mL [facility] Specimen Anatomical Collection Method Collection Time Receive d Time (Source) Location / / Volume Laterality Blood specimen 11/15/2012 11:35 3 (specimen) AM EDT 11:39 AM EDT Resulting Agency Comment Spec In Lab Matias Salmeron MD IMMUNOLOGY ORDERABLES Performing Organization Address City/[facility]/ZIP Code Phon e Number [address] [facility] Hepatitis C Antibody (11/15/2012 11:35 AM EDT) Analysis Performed At Patho logist Time Signature Hepatitis C Ab Negative Negative [facility] Specimen Anatomical Collection Method Collection Time Receive d Time (Source) Location / / Volume Laterality Blood specimen 11/15/2012 11:35 3 (specimen) AM EDT 11:39 AM EDT Resulting Agency Comment Spec In Lab Matias Salmeron MD IMMUNOLOGY ORDERABLES Performing Organization Address City/[facility]/[place] [address] [facility] Hepatitis B Core Antibody, IgM (11/15/2012 11:35 AM EDT) Analysis Performed At Patho logist Time Signature Hep B Core IgM Negative Negative [facility] Comment: Test Performed by: [facility] [address], [place] [address] Ivory Carver: Cassy Rodriguez, Ph. D. Specimen Anatomical Collection Method Collection Time Receive d Time (Source) Location / / Volume Laterality Blood specimen 11/15/2012 11:35 3 2:32 (specimen) AM EDT PM EDT Resulting Agency Comment Spec In Lab Matias Salmeron MD IMMUNOLOGY ORDERABLES Performing Organization Address City/[facility]/ZIP Code Phon e Number [address] [facility] HIV (11/15/2012 11:35 AM EDT) P athologist Signature HIV 1/2 Ab Negative [facility] Specimen Anatomical Collection Method Collection Time Receive d Time (Source) Location / / Volume Laterality Blood specimen 11/15/2012 11:35 3 (specimen) AM EDT 11:39 AM EDT Resulting Agency Comment Spec In Lab Matias Salmeron MD IMMUNOLOGY ORDERABLES Performing Organization Address City/[facility]/ZIP [facility] [place] [address] [facility] Sedimentation rate (11/15/2012 11:35 AM EDT) P athologist Signature Sed Rate 16 0 - 20 CERNER mm/hr [facility] Specimen Anatomical Collection Method Collection Time Receive d Time (Source) Location / / Volume Laterality Blood specimen 11/15/2012 11:35 3 (specimen) AM EDT 11:39 AM EDT Resulting Agency Comment Spec In Lab Matias Salmeron MD HEMATOLOGY ORDERABLES Performing Organization Address City/[facility]/ZIP Code Phon e Number [address] CERNER MILLENNIUM Methylmalonic acid, serum (11/15/2012 11:35 AM EDT) [facility] gist Method Time Signature Methylmalonic Acid 0.28 <=0.40 CERNER nmol/mL MILLENNIUM Comment: Test Performed by: [address] [address] Ivory Carver: Codey aranda III, M.D. Specimen Anatomical Collection Method Collection Time Receive d Time (Source) Location / / Volume Laterality Blood specimen 11/15/2012 11:35 3 2:03 (specimen) AM EDT PM EDT Resulting Agency Comment Spec In Lab Matias Salmeron MD CHEMISTRY ORDERABLES Performing Organization Address City/[facility]/ZIP Code Phon e Number [address] CERNER MILLENNIUM Vitamin B12 (11/15/2012 11:35 AM EDT) athologist Signature Vitamin B-12 716 207 - 974 CERNER pg/mL MILLENNIUM Specimen Anatomical Collection Method Collection Time Receive d Time (Source) Location / / Volume Laterality Blood specimen 11/15/2012 11:35 3 (specimen) AM EDT 11:39 AM EDT Resulting Agency Comment Spec In Lab Matias Salmeron MD CHEMISTRY ORDERABLES Performing Organization Address City/[facility]/ZIP [facility] Phon e Number [address] CERNER MILLENNIUM Ferritin (11/15/2012 11:35 AM EDT) athologist Signature Ferritin 66 30 - 400 CERNER ng/mL MILLENNIUM Comment: Pediatric reference ranges not verified at [facility], interpret with caution. Reference ranges for females greater delmi n 50 years of age approach values for men, i.e., 30-400 ng/mL. Specimen Anatomical Collection Method Collection Time Receive d Time (Source) Location / / Volume Laterality Blood specimen 11/15/2012 11:35 3 (specimen) AM EDT 11:39 AM EDT Resulting Agency Comment Spec In Lab Matias Salmeron MD CHEMISTRY ORDERABLES Performing Organization Address City/[facility]/ZIP Code Phon e Number [address] CERNER MILLENNIUM Folate, serum (11/15/2012 11:35 AM EDT) P athologist Signature Folate Lvl >20.0 4.6 - 34.8 CERNER ng/mL MILLENNIUM Specimen Anatomical Collection Method Collection Time Receive d Time (Source) Location / / Volume Laterality Blood specimen 11/15/2012 11:35 3 (specimen) AM EDT 11:39 AM EDT Resulting Agency Comment Spec In Lab Matias Salmeron MD CHEMISTRY ORDERABLES Performing Organization Address City/[facility]/ZIP Code Phon e Number [address] CERNER MILLENNIUM (ABNORMAL) Protein Electrophoresis, serum (11/15/2012 11:35 AM EDT) Patholo gist Method Time Signature Total Prot 6.0 (L) 6.1 - 8.0 CERNER Elec gm/dL MILLENNIUM Albumin Elect 3.94 3.60 - 6.00 CERNER gm/dL MILLENNIUM Alpha1-Globul 0.17 0.10 - 0.30 CERNER in gm/dL MILLENNIUM Alpha2-Globul 0.67 0.40 - 0.90 CERNER in gm/dL MILLENNIUM Beta Globulin 0.60 0.50 - 1.00 CERNER gm/dL MILLENNIUM Gamma 0.62 0.50 - 1.30 CERNER Globulin gm/dL MILLENNIUM M1 Band None None CERNER Detected Detected MILLENNIUM gm/dL Scan See Note CERNER MILLENNIUM Comment: Please see scanned report in Ch art Review under the [facility] Laboratory Heading. Specimen Anatomical Collection Method Collection Time Receive d Time (Source) Location / / Volume Laterality Blood specimen 11/15/2012 11:35 3 (specimen) AM EDT 11:39 AM EDT Narrative This result has an attachment that is no t available. Resulting Agency Comment Spec In Lab Matias Salmeron MD CHEMISTRY ORDERABLES Performing Organization Address City/State/ZIP Code Phon e Number [place] [phone] CERNER MILLENNIUM (ABNORMAL) Comprehensive metabolic panel (non-fasting) (11/15/2012 11:35 AM EDT) P athologist Signature Glucose Lvl 117 60 - 199 CERNER mg/dL MILLENNIUM Comment: Diabetes: >=200 mg/dL plus symp toms BUN 13 8 - 18 mg/dL CERNER MILLENNIUM Creatinine 0.96 0.70 - 1.20 mg/dL CERNER MILL ENNIUM Comment: Please note that the pediatric reference intervals supplied above were not validated at [facility]. Results from pediatri c patients should be interpreted in conjunction to the patient's age, height and muscle mass. Sodium 139 135 - 145 mmol/L CERNER CHONG NIUM Potassium 3.7 3.5 - 5.0 mmol/L CERNER CHONG NIUM [...] 31 mmol/L CERNER MILLENNI UM Anion Gap 9 5 - 15 mmol/L CERNER MILLENNIU M Calcium 9.4 8.5 - 10.5 mg/dL CERNER CHONG NIUM Total Protein 6.3 (L) 6.4 - 8.3 gm/dL CERNER MIL LENNIUM Albumin 3.8 3.2 - 5.2 gm/dL CERNER MILLENN IUM AST 18 0 - 30 unit/L CERNER MILLENNIU M ALT 15 0 - 30 unit/L CERNER MILLENNIU M Alk Phos 60 40 - 104 unit/L CERNER MILLENN IUM Total Bilirubin 0.3 0.2 - 1.3 mg/dL CERNER M ILLENNIUM Bili, Direct 0.1 0.0 - 0.3 mg/dL CERNER MILL ENNIUM Estimated GFR 57 (L) >=60 CERNER MILLENNIU M Comment: This [...] the following links into your internet browser. http://www.nkdep.nih.gov/lab-evaluation. shtml http://www.kidney.org/professionals/ Specimen Anatomical Collection Method Collection Time Receive d Time (Source) Location / / Volume Laterality Blood specimen 11/15/2012 11:35 3 (specimen) AM EDT 11:39 AM EDT Resulting Agency Comment Spec In Lab Matias Salmeron MD CHEMISTRY ORDERABLES Performing Organization Address City/State/[place] [address] CERNER MILLENNIUM (ABNORMAL) CBC (with Diff) (11/15/2012 11:35 AM EDT) P athologist Signature WBC 9.8 4.0 - 10.0 CERNER x10(3)/mcL MILLENNIUM RBC 4.86 3.93 - CERNER 5.22 MILLENNIUM x10(6)/mcL Hemoglobin 13.9 11.2 - CERNER 15.7 gm/dL MILLENNIUM Hematocrit 43.0 34.0 - CERNER 45.0 % MILLENNIUM MCV 88.5 79.0 - CERNER 94.0 fL MILLENNIUM MCH 28.6 26.6 - CERNER 32.2 pg MILLENNIUM MCHC 32.3 32.0 - CERNER 36.5 gm/dL MILLENNIUM Platelets 76 (L) 145 - 370 CERNER x10(3)/mcL MILLENNIUM RDWSD 44.6 35.0 - CERNER 46.0 fL MILLENNIUM RDWCV 13.8 10.9 - CERNER 14.4 % MILLENNIUM MPV 12.4 (H) 9.0 - 12.0 CERNER fL MILLENNIUM Specimen Anatomical Collection Method Collection Time Receive d Time (Source) Location / / Volume Laterality Blood specimen 11/15/2012 11:35 11/15/201 3 (specimen) AM EDT 11:39 AM EDT Resulting Agency Comment Spec In Lab Matias Salmeron MD HEMATOLOGY ORDERABLES Performing Organization Address City/State/ZIP Code Phon e Number [place] [phone] [facility] documented in this encounter Visit Diagnoses Diagnosis Thrombocytopenia - Primary Thrombocytopenia, unspecified 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
--- OUTSIDE RECORDS SUMMARY | 2022-04-03 12:35 | XMS_ITS | Encounter Summary ---
:1935 Author Organization [facility] [place] [address] Care Team Providers Name Role Phone Matt Mcdonnell Martha KHAN Primary Care Provider Encounter Details Date Type Department Care Team Description 11/15/2012 Hospital Encounter Mammography at [facility] Yuri Alcala MD [facility] [address] [place] [address] [place] [address] [phone] Social History Tobacco Use Types Packs/Day Years [...] Visit Pulmonology Matt Watson MD [facility] [address] ANEESH TOMPKINS [place], [place] [address] (Wo rk) documented as of this encounter Procedures Procedure Name Priority Date/Time Associated Diagnosis Comme nts MAMMO SCREENING CAD Routine 11/15/2012 12:56 PM R esults for this BILATERAL EDT procedure are i n the results section. documented in this encounter Results Mammo digital bilateral Screening with CAD (11/15/2012 12:56 PM EDT) Anatomical Region Laterality Modality Breast Bilateral Mammography Specimen (Source) Anatomical Collection Method Collection Time Re ceived Time Location / / Volume Laterality 11/15/2012 12:56 PM EDT Narrative 11/16/2012 6:16 PM EDT REASON FOR EXAM: Screening ?? TECHNIQUE: Cranio-caudal (CC) and mediol ateral oblique (MLO) views of the both breasts obtained with direct digital cap ture. The exam was evaluated by CAD Version 8.3.17. ?? RIGHT BREAST MAMMOGRAPHY ?? This is an indeterminate (ACR Category 0 ) mammogram of the Right breast. There is a focal asymmetry in the upper, outer Right breast, requiring additional imaging. ? LEFT BREAST MAMMOGRAPHY ?? This is a negative mammogram (ACR Catego ry 1). There is a stable fibroglandular pattern without significant change as co mpared to prior studies. There is no mammographic evidence of cancer. ? The breasts are of scattered density. ? CONCLUSION ?? ASSESSMENT IS INCOMPLETE: Additional mally ging recommended (ACR Category 0) of the Right breast. [facility] will contact the patient to schedule additional imaging. ?? The contralateral breast is NEGATIVE (AC R Category 1). Routine screening mammography is recommended of the Left b reast with the frequency dependent on the patient's age and breast cancer risk factors. Procedure Note Delia Lama MD - 11/16/2012 REASON FOR EXAM: Screening TECHNIQUE: Cranio-caudal (CC) and mediol ateral oblique (MLO) views of the both breasts obtained with direct digital cap ture. The exam was evaluated by CAD Version 8.3.17. RIGHT BREAST MAMMOGRAPHY This is an indeterminate (ACR Category 0 ) mammogram of the Right breast. There is a focal asymmetry in the upper, outer Right breast, requiring additional imaging. LEFT BREAST MAMMOGRAPHY This is a negative mammogram (ACR Catego ry 1). There is a stable fibroglandular pattern without significant change as co mpared to prior studies. There is no mammographic evidence of cancer. The breasts are of scattered density. CONCLUSION ASSESSMENT IS INCOMPLETE: Additional mally ging recommended (ACR Category 0) of the Right breast. [facility] will contact the patient to schedule additional imaging. The contralateral breast is NEGATIVE (AC R Category 1). Routine screening mammography is recommended of the Left b reast with the frequency dependent on the patient's age and breast cancer risk factors. Yuri Alcala MD IMG MAMMO ORDERABLES documented in this encounter Visit Diagnoses Not on filedocumented in this encounter Care Teams Oil Mixer Relationship Specialty Start Date End Date Matt Mcdonnell, PCP - General 11/15/12 11/29/19 [address] [place] [address] documented as of this encounter
[2022-04-03 12:48] LABS: ALT 33 U/L (14-59); AST 40 U/L (15-37); Albumin 3.7 g/dL (3.4-5.0); Alkaline Phosphatase 105 U/L (46-116); Anion Gap 8.3 mmol/L (3-11); BUN 23 mg/dL (7-18); Bilirubin, Total 1.4 mg/dL (0.2-1.0); CO2 32.7 mmol/L (21.0-32.0); CREATININE 1.1 mg/dL (0.55-1.02); Chloride 105 mmol/L (98-107); Estimated GFR 49.24 (mL/min/1.73m2); Glucose 128 mg/dL (74-106); Potassium 3.3 mmol/L (3.5-5.1); Sodium 146 mmol/L (136-145); Total Protein 7.2 g/dL (6.4-8.2)
== END 2022-04-03 12:24 | disposition home or self-care (01) ==
PROVIDERS: PCP Family Medicine; Visit Provider Internal Medicine Hematology & Oncology
DX: C50.911 Malignant neoplasm of unspecified site of right female breast (principal)
CPT/HCPCS: 36415; 80053

== ENCOUNTER 2022-05-14 02:58 | Outpatient (CLI) | payer MEDICARE, SELFPAY ==
[2022-05-14 09:51] LABS: Abs Immature Grans 0.04 10^3/uL (0.0-0.06); Absolute Basophil Count 0.04 10^3/uL (0.0-0.2); Absolute Eosinophil Count 0.11 10^3/uL (0.0-0.7); Absolute Lymphocyte Count 1.68 10^3/uL (1.2-3.4); Absolute Monocyte Count 0.65 10^3/uL (0.1-0.8); Absolute Neutrophil Count 7.14 10^3/uL (1.2-6.7); Basophils % 0.4; Eosinophils % 1.1; HCT 51.4 % (36.0-46.0); Immature Grans % 0.4; Lymphocytes % 17.4; MCH 28.6 pg (27.0-33.0); MCHC 31.1 % (32.0-36.0); MCV 92 fL (80-95); MPV 10.6 fL (8.0-11.0); Monocytes % 6.7; Platelet Count 168 10^3/uL (130-400); RBC 5.59 10^6/uL (3.93-5.22); RDW 13.3 % (11.7-14.6); RDW-SD 45.5 fL; WBC 9.66 10^3/uL (4.4-10.8)
[2022-05-14 10:06] LABS: ALT 30 U/L (14-59); AST 27 U/L (15-37); Albumin 3.3 g/dL (3.4-5.0); Alkaline Phosphatase 69 U/L (46-116); Anion Gap 4.2 mmol/L (3-11); BUN 17 mg/dL (7-18); CO2 31.8 mmol/L (21.0-32.0); CREATININE 1.2 mg/dL (0.55-1.02); Calcium 9.5 mg/dL (8.5-10.1); Chloride 104 mmol/L (98-107); Estimated GFR 44.36 (mL/min/1.73m2); Glucose 106 mg/dL (74-106); Magnesium 1.9 mg/dL (1.8-2.4); Potassium 4.1 mmol/L (3.5-5.1); Sodium 140 mmol/L (136-145); Total Protein 6.5 g/dL (6.4-8.2)
[2022-05-14 10:29] LABS: Vitamin D 25 Total 27.9 ng/mL (30-100)
== END 2022-05-14 02:59 | disposition home or self-care (01) ==
PROVIDERS: Internal Medicine Hematology & Oncology; PCP Family Medicine; Visit Provider Family Medicine
DX: E55.9 Vitamin D deficiency, unspecified (principal); C50.911 Malignant neoplasm of unspecified site of right female breast; E87.6 Hypokalemia
CPT/HCPCS: 36415; 80053; 82306; 83735; 85025